=== PATIENT | female | born 1950 | race Caucasian/White ===

== ENCOUNTER 2024-09-07 06:08 | Outpatient (REF) | payer MEDICARE, MEDICAID, SELFPAY ==
[2024-09-07 06:14] LABS: MANUAL DIFF FLAG NO
[2024-09-07 06:58] LABS: Basophils Percent Auto 0.5 % (0-2); Eosinophils Absolute Auto 0.1 X10*3/uL (0.0-0.4); Eosinophils Percent Auto 1.1 % (0-4); Hematocrit 25.4 % (37.0-47.0); Hemoglobin 8.7 g/dl (12.0-16.0); Imm Gran Abs Auto 0.06 X10*3/uL (0.00-0.03); Imm Gran Pct Auto 0.7 % (0.0-0.4); Lymphocytes Absolute Auto 1.9 X10*3/uL (1.2-4.9); Lymphocytes Percent Auto 23.2 % (20-40); Mean Corpuscular HGB Conc 34.3 g/dl (31.0-35.0); Mean Corpuscular Hemoglobin 36.7 pg (27.0-33.0); Mean Corpuscular Volume 107.2 fL (80.0-98.0); Mean Platelet Volume 10.5 fL (9.4-12.3); Monocytes Absolute Auto 0.7 X10*3/uL (0.1-1.2); Monocytes Percent Auto 8.2 % (2-11); Neutrophils Absolute Auto 5.4 x10*3/uL (2.0-8.3); Neutrophils Percent Auto 66.3 % (45-73); Platelet Count 173 X10*3/uL (160-400); Red Blood Count 2.37 X10*6/uL (4.20-5.50); Red Cell Distribution Width 13.2 % (11.0-16.0); White Blood Count 8.1 X10*3/uL (4.8-10.8)
[2024-09-07 07:28] LABS: Alanine Aminotransferase 7 U/L (0-31); Alkaline Phosphatase 82 U/L (39-117); Anion Gap 9 (12-20); Aspartate Amino Transferase 17 U/L (5-31); Bilirubin Total 1.2 mg/dL (0.0-1.0); Blood Urea Nitrogen 17 mg/dL (9-16); Calcium 11.1 mg/dL (8.4-10.2); Carbon Dioxide 31 mmol/L (22-29); Chloride 103 mmol/L (96-108); Estimated Glomerular Filt Rate > 60; Glucose Random 98 mg/dL (60-115); Sodium 140 mmol/L (135-145); Total Protein 5.3 g/dL (6.5-8.0)
[2024-09-07 07:40] LABS: Potassium 2.9 mmol/L (3.3-5.1)
== END 2024-09-07 06:09 | disposition home or self-care (01) ==
LOC: HO.MMNH2L 06:08
PROVIDERS: Visit Provider Family Medicine
DX: I10 Essential (primary) hypertension (principal)
CPT/HCPCS: 36415; 80053; 85025

== ENCOUNTER 2024-09-09 05:26 | Outpatient (REF) | payer MEDICARE, SELFPAY ==
[2024-09-09 05:29] LABS: MANUAL DIFF FLAG NO
[2024-09-09 06:04] LABS: Basophils Percent Auto 0.4 % (0-2); Eosinophils Absolute Auto 0.1 X10*3/uL (0.0-0.4); Eosinophils Percent Auto 1.4 % (0-4); Hematocrit 25.6 % (37.0-47.0); Hemoglobin 8.5 g/dl (12.0-16.0); Imm Gran Abs Auto 0.07 X10*3/uL (0.00-0.03); Imm Gran Pct Auto 0.9 % (0.0-0.4); Lymphocytes Absolute Auto 1.7 X10*3/uL (1.2-4.9); Lymphocytes Percent Auto 20.7 % (20-40); Mean Corpuscular HGB Conc 33.2 g/dl (31.0-35.0); Mean Corpuscular Hemoglobin 36.5 pg (27.0-33.0); Mean Corpuscular Volume 109.9 fL (80.0-98.0); Mean Platelet Volume 10.2 fL (9.4-12.3); Monocytes Absolute Auto 0.7 X10*3/uL (0.1-1.2); Monocytes Percent Auto 8.1 % (2-11); Neutrophils Absolute Auto 5.6 x10*3/uL (2.0-8.3); Neutrophils Percent Auto 68.5 % (45-73); Platelet Count 201 X10*3/uL (160-400); Red Blood Count 2.33 X10*6/uL (4.20-5.50); Red Cell Distribution Width 14.3 % (11.0-16.0); White Blood Count 8.1 X10*3/uL (4.8-10.8)
[2024-09-09 06:14] LABS: Anion Gap 13 (12-20); Blood Urea Nitrogen 18 mg/dL (9-16); Calcium 10.9 mg/dL (8.4-10.2); Carbon Dioxide 28 mmol/L (22-29); Chloride 106 mmol/L (96-108); Estimated Glomerular Filt Rate > 60; Glucose Random 102 mg/dL (60-115); Sodium 143 mmol/L (135-145)
== END 2024-09-09 05:27 | disposition home or self-care (01) ==
LOC: HO.MMNH2L 05:26
PROVIDERS: Visit Provider Family Medicine
DX: S72.91XD Unspecified fracture of right femur, subsequent encounter for closed fracture with routine healing (principal); J44.9 Chronic obstructive pulmonary disease, unspecified; F32.9 Major depressive disorder, single episode, unspecified
CPT/HCPCS: 36415; 80048; 85025

== ENCOUNTER 2024-09-11 05:42 | Outpatient (REF) | payer MEDICARE, MEDICAID, SELFPAY ==
[2024-09-11 06:05] LABS: Appearance Urine Turbid; Color Urine Dark Yellow; Glucose Urine UA Negative (Negative); Leukocyte Esterase Urine Large (3+) (Negative); Nitrite Urine Positive (Negative); PH >= 9.0 (5.0-9.0); UMIC TRIGGER UA YES; Urine Blood Negative (Negative); Urine Ketones Negative (Negative); Urine Protein 100 (2+) mg/dL (Neg-Trace)
[2024-09-11 06:17] LABS: Bacteria Urine 4+ (None Seen); Hyaline Casts Urine 0-2 /LPF (0-2); Other Crystals Urine Present; RBC Urine 0-2 /HPF (0-2); Squamous Epithelial Cell Urine 0-2 /HPF (0-2); WBC Urine 0-5 /HPF (0-5)
== END 2024-09-11 05:43 | disposition home or self-care (01) ==
LOC: HO.MMNH2L 05:42
PROVIDERS: Visit Provider Family Medicine
DX: R30.0 Dysuria (principal)
CPT/HCPCS: 81001; 87086; 87088; 87186

== ENCOUNTER 2024-09-14 06:07 | Outpatient (REF) | payer MEDICARE, MEDICAID, SELFPAY ==
[2024-09-14 06:10] LABS: MANUAL DIFF FLAG NO
[2024-09-14 07:05] LABS: Basophils Percent Auto 0.4 % (0-2); Eosinophils Absolute Auto 0.1 X10*3/uL (0.0-0.4); Eosinophils Percent Auto 1.1 % (0-4); Hematocrit 28.7 % (37.0-47.0); Hemoglobin 9.4 g/dl (12.0-16.0); Imm Gran Abs Auto 0.03 X10*3/uL (0.00-0.03); Imm Gran Pct Auto 0.4 % (0.0-0.4); Lymphocytes Absolute Auto 1.1 X10*3/uL (1.2-4.9); Lymphocytes Percent Auto 15.9 % (20-40); Mean Corpuscular HGB Conc 32.8 g/dl (31.0-35.0); Mean Corpuscular Hemoglobin 35.6 pg (27.0-33.0); Mean Corpuscular Volume 108.7 fL (80.0-98.0); Mean Platelet Volume 10.2 fL (9.4-12.3); Monocytes Absolute Auto 0.6 X10*3/uL (0.1-1.2); Monocytes Percent Auto 8.7 % (2-11); Neutrophils Absolute Auto 5.2 x10*3/uL (2.0-8.3); Neutrophils Percent Auto 73.5 % (45-73); Platelet Count 222 X10*3/uL (160-400); Red Blood Count 2.64 X10*6/uL (4.20-5.50); Red Cell Distribution Width 14.2 % (11.0-16.0); White Blood Count 7.1 X10*3/uL (4.8-10.8)
[2024-09-14 08:15] LABS: Anion Gap 12 (12-20); Blood Urea Nitrogen 16 mg/dL (9-16); Carbon Dioxide 28 mmol/L (22-29); Chloride 106 mmol/L (96-108); Potassium 4.6 mmol/L (3.3-5.1); Sodium 141 mmol/L (135-145)
[2024-09-14 08:16] LABS: Calcium 11.9 mg/dL (8.4-10.2); Estimated Glomerular Filt Rate > 60; Glucose Random 85 mg/dL (60-115)
== END 2024-09-14 06:08 | disposition home or self-care (01) ==
LOC: HO.MMNH2L 06:07
PROVIDERS: Visit Provider Student in an Organized Health Care Education/Training Program
DX: J44.9 Chronic obstructive pulmonary disease, unspecified (principal); F32.9 Major depressive disorder, single episode, unspecified; E46 Unspecified protein-calorie malnutrition
CPT/HCPCS: 36415; 80048; 85025

== ENCOUNTER 2024-09-28 05:45 | Outpatient (REF) | payer MEDICARE, SELFPAY ==
[2024-09-28 05:39] LABS: MANUAL DIFF FLAG NO
[2024-09-28 06:34] LABS: Anion Gap 13 (12-20); Blood Urea Nitrogen 12 mg/dL (9-16); Calcium 11.7 mg/dL (8.4-10.2); Carbon Dioxide 26 mmol/L (22-29); Chloride 108 mmol/L (96-108); Estimated Glomerular Filt Rate > 60; Glucose Random 90 mg/dL (60-115); Sodium 144 mmol/L (135-145)
[2024-09-28 07:03] LABS: Basophils Absolute Auto 0.1 X10*3/uL (0.0-0.2); Basophils Percent Auto 0.6 % (0-2); Eosinophils Percent Auto 0.4 % (0-4); Hemoglobin 10.4 g/dl (12.0-16.0); Imm Gran Abs Auto 0.04 X10*3/uL (0.00-0.03); Imm Gran Pct Auto 0.4 % (0.0-0.4); Lymphocytes Absolute Auto 1.5 X10*3/uL (1.2-4.9); Mean Corpuscular HGB Conc 33.5 g/dl (31.0-35.0); Mean Corpuscular Volume 107.3 fL (80.0-98.0); Mean Platelet Volume 10.1 fL (9.4-12.3); Monocytes Absolute Auto 0.7 X10*3/uL (0.1-1.2); Monocytes Percent Auto 6.8 % (2-11); Neutrophils Absolute Auto 7.2 x10*3/uL (2.0-8.3); Neutrophils Percent Auto 75.8 % (45-73); Platelet Count 198 X10*3/uL (160-400); Red Blood Count 2.89 X10*6/uL (4.20-5.50); Red Cell Distribution Width 13.6 % (11.0-16.0); White Blood Count 9.6 X10*3/uL (4.8-10.8)
== END 2024-09-28 05:46 | disposition home or self-care (01) ==
LOC: HO.MMNH2L 05:45
PROVIDERS: Visit Provider Student in an Organized Health Care Education/Training Program
DX: J44.9 Chronic obstructive pulmonary disease, unspecified (principal); F32.9 Major depressive disorder, single episode, unspecified; E46 Unspecified protein-calorie malnutrition
CPT/HCPCS: 36415; 80048; 85025

== ENCOUNTER 2024-10-05 05:49 | Outpatient (REF) | payer MEDICARE, SELFPAY ==
[2024-10-05 05:40] LABS: MANUAL DIFF FLAG NO
[2024-10-05 06:23] LABS: Basophils Percent Auto 0.5 % (0-2); Eosinophils Absolute Auto 0.1 X10*3/uL (0.0-0.4); Hematocrit 32.2 % (37.0-47.0); Hemoglobin 10.7 g/dl (12.0-16.0); Imm Gran Abs Auto 0.02 X10*3/uL (0.00-0.03); Imm Gran Pct Auto 0.4 % (0.0-0.4); Lymphocytes Absolute Auto 1.4 X10*3/uL (1.2-4.9); Lymphocytes Percent Auto 25.1 % (20-40); Mean Corpuscular HGB Conc 33.2 g/dl (31.0-35.0); Mean Corpuscular Hemoglobin 35.5 pg (27.0-33.0); Monocytes Absolute Auto 0.5 X10*3/uL (0.1-1.2); Monocytes Percent Auto 9.6 % (2-11); Neutrophils Absolute Auto 3.5 x10*3/uL (2.0-8.3); Neutrophils Percent Auto 62.4 % (45-73); Platelet Count 163 X10*3/uL (160-400); Red Blood Count 3.01 X10*6/uL (4.20-5.50); Red Cell Distribution Width 13.6 % (11.0-16.0); White Blood Count 5.5 X10*3/uL (4.8-10.8)
[2024-10-05 06:51] LABS: Anion Gap 11 (12-20); Blood Urea Nitrogen 13 mg/dL (9-16); Carbon Dioxide 28 mmol/L (22-29); Chloride 106 mmol/L (96-108); Estimated Glomerular Filt Rate > 60; Glucose Random 86 mg/dL (60-115); Potassium 3.7 mmol/L (3.3-5.1); Sodium 141 mmol/L (135-145)
== END 2024-10-05 05:50 | disposition home or self-care (01) ==
LOC: HO.MMNH2L 05:49
PROVIDERS: Visit Provider Student in an Organized Health Care Education/Training Program
DX: J44.9 Chronic obstructive pulmonary disease, unspecified (principal); F32.9 Major depressive disorder, single episode, unspecified; E46 Unspecified protein-calorie malnutrition
CPT/HCPCS: 36415; 80048; 85025

== ENCOUNTER 2024-10-12 06:25 | Outpatient (REF) | payer MEDICARE, SELFPAY ==
[2024-10-12 06:19] LABS: MANUAL DIFF FLAG NO
[2024-10-12 06:33] LABS: Basophils Absolute Auto 0.1 X10*3/uL (0.0-0.2); Basophils Percent Auto 0.6 % (0-2); Eosinophils Absolute Auto 0.2 X10*3/uL (0.0-0.4); Eosinophils Percent Auto 2.1 % (0-4); Hematocrit 35.3 % (37.0-47.0); Hemoglobin 11.8 g/dl (12.0-16.0); Imm Gran Abs Auto 0.04 X10*3/uL (0.00-0.03); Imm Gran Pct Auto 0.5 % (0.0-0.4); Lymphocytes Absolute Auto 1.9 X10*3/uL (1.2-4.9); Lymphocytes Percent Auto 23.1 % (20-40); Mean Corpuscular HGB Conc 33.4 g/dl (31.0-35.0); Mean Corpuscular Hemoglobin 35.4 pg (27.0-33.0); Mean Platelet Volume 9.8 fL (9.4-12.3); Monocytes Absolute Auto 0.7 X10*3/uL (0.1-1.2); Neutrophils Absolute Auto 5.4 x10*3/uL (2.0-8.3); Neutrophils Percent Auto 65.7 % (45-73); Platelet Count 188 X10*3/uL (160-400); Red Blood Count 3.33 X10*6/uL (4.20-5.50); Red Cell Distribution Width 13.3 % (11.0-16.0); White Blood Count 8.2 X10*3/uL (4.8-10.8)
[2024-10-12 07:01] LABS: Anion Gap 11 (12-20); Blood Urea Nitrogen 13 mg/dL (9-16); Carbon Dioxide 29 mmol/L (22-29); Chloride 104 mmol/L (96-108); Estimated Glomerular Filt Rate > 60; Glucose Random 90 mg/dL (60-115); Sodium 141 mmol/L (135-145)
[2024-10-12 07:25] LABS: Calcium 12.5 mg/dL (8.4-10.2); Potassium 2.9 mmol/L (3.3-5.1)
== END 2024-10-12 06:26 | disposition home or self-care (01) ==
LOC: HO.MMNH2L 06:25
PROVIDERS: Visit Provider Student in an Organized Health Care Education/Training Program
DX: J44.9 Chronic obstructive pulmonary disease, unspecified (principal); F32.9 Major depressive disorder, single episode, unspecified; E46 Unspecified protein-calorie malnutrition
CPT/HCPCS: 36415; 80048; 85025

== ENCOUNTER 2024-10-13 06:00 | Outpatient (REF) | payer MEDICARE, SELFPAY ==
[2024-10-13 07:32] LABS: Anion Gap 9 (12-20); Blood Urea Nitrogen 14 mg/dL (9-16); Carbon Dioxide 29 mmol/L (22-29); Chloride 107 mmol/L (96-108); Estimated Glomerular Filt Rate > 60; Glucose Random 91 mg/dL (60-115); Potassium 3.8 mmol/L (3.3-5.1); Sodium 141 mmol/L (135-145)
[2024-10-13 07:48] LABS: Calcium 12.7 mg/dL (8.4-10.2)
== END 2024-10-13 06:01 | disposition home or self-care (01) ==
LOC: HO.MMNH2L 06:00
PROVIDERS: Visit Provider Family Medicine
DX: E87.6 Hypokalemia (principal); J44.9 Chronic obstructive pulmonary disease, unspecified
CPT/HCPCS: 36415; 80048

== ENCOUNTER 2024-10-19 06:02 | Outpatient (REF) | payer MEDICARE, SELFPAY ==
[2024-10-19 05:44] LABS: MANUAL DIFF FLAG NO
[2024-10-19 06:19] LABS: Basophils Absolute Auto 0.1 X10*3/uL (0.0-0.2); Basophils Percent Auto 0.8 % (0-2); Eosinophils Absolute Auto 0.1 X10*3/uL (0.0-0.4); Eosinophils Percent Auto 1.8 % (0-4); Hematocrit 34.7 % (37.0-47.0); Hemoglobin 11.5 g/dl (12.0-16.0); Imm Gran Abs Auto 0.02 X10*3/uL (0.00-0.03); Imm Gran Pct Auto 0.3 % (0.0-0.4); Lymphocytes Absolute Auto 1.8 X10*3/uL (1.2-4.9); Lymphocytes Percent Auto 26.9 % (20-40); Mean Corpuscular HGB Conc 33.1 g/dl (31.0-35.0); Mean Corpuscular Hemoglobin 35.2 pg (27.0-33.0); Mean Corpuscular Volume 106.1 fL (80.0-98.0); Mean Platelet Volume 10.1 fL (9.4-12.3); Monocytes Absolute Auto 0.5 X10*3/uL (0.1-1.2); Monocytes Percent Auto 7.6 % (2-11); Neutrophils Absolute Auto 4.1 x10*3/uL (2.0-8.3); Neutrophils Percent Auto 62.6 % (45-73); Platelet Count 200 X10*3/uL (160-400); Red Blood Count 3.27 X10*6/uL (4.20-5.50); White Blood Count 6.6 X10*3/uL (4.8-10.8)
[2024-10-19 06:55] LABS: Anion Gap 10 (12-20); Blood Urea Nitrogen 18 mg/dL (9-16); Calcium 11.6 mg/dL (8.4-10.2); Carbon Dioxide 29 mmol/L (22-29); Chloride 105 mmol/L (96-108); Estimated Glomerular Filt Rate > 60; Glucose Random 84 mg/dL (60-115); Potassium 3.2 mmol/L (3.3-5.1); Sodium 141 mmol/L (135-145)
== END 2024-10-19 06:03 | disposition home or self-care (01) ==
LOC: HO.MMNH2L 06:02
PROVIDERS: Visit Provider Student in an Organized Health Care Education/Training Program
DX: J44.9 Chronic obstructive pulmonary disease, unspecified (principal); F32.9 Major depressive disorder, single episode, unspecified; E46 Unspecified protein-calorie malnutrition
CPT/HCPCS: 36415; 80048; 85025

== ENCOUNTER 2024-10-26 06:11 | Outpatient (REF) | payer MEDICARE, SELFPAY ==
[2024-10-26 05:40] LABS: MANUAL DIFF FLAG NO
[2024-10-26 06:15] LABS: Basophils Absolute Auto 0.1 X10*3/uL (0.0-0.2); Basophils Percent Auto 0.8 % (0-2); Eosinophils Absolute Auto 0.1 X10*3/uL (0.0-0.4); Eosinophils Percent Auto 2.1 % (0-4); Hemoglobin 11.7 g/dl (12.0-16.0); Imm Gran Abs Auto 0.03 X10*3/uL (0.00-0.03); Imm Gran Pct Auto 0.5 % (0.0-0.4); Lymphocytes Percent Auto 30.5 % (20-40); Mean Corpuscular HGB Conc 33.4 g/dl (31.0-35.0); Mean Corpuscular Hemoglobin 35.3 pg (27.0-33.0); Mean Corpuscular Volume 105.7 fL (80.0-98.0); Mean Platelet Volume 10.2 fL (9.4-12.3); Monocytes Absolute Auto 0.5 X10*3/uL (0.1-1.2); Monocytes Percent Auto 7.6 % (2-11); Neutrophils Absolute Auto 3.8 x10*3/uL (2.0-8.3); Neutrophils Percent Auto 58.5 % (45-73); Platelet Count 180 X10*3/uL (160-400); Red Blood Count 3.31 X10*6/uL (4.20-5.50); Red Cell Distribution Width 13.1 % (11.0-16.0); White Blood Count 6.6 X10*3/uL (4.8-10.8)
[2024-10-26 06:34] LABS: Anion Gap 10 (12-20); Blood Urea Nitrogen 21 mg/dL (9-16); Calcium 11.8 mg/dL (8.4-10.2); Carbon Dioxide 32 mmol/L (22-29); Chloride 105 mmol/L (96-108); Estimated Glomerular Filt Rate > 60; Glucose Random 82 mg/dL (60-115); Potassium 3.8 mmol/L (3.3-5.1); Sodium 143 mmol/L (135-145)
== END 2024-10-26 06:12 | disposition home or self-care (01) ==
LOC: HO.MMNH2L 06:11
PROVIDERS: Visit Provider Student in an Organized Health Care Education/Training Program
DX: J44.9 Chronic obstructive pulmonary disease, unspecified (principal); E46 Unspecified protein-calorie malnutrition; F32.9 Major depressive disorder, single episode, unspecified
CPT/HCPCS: 36415; 80048; 85025

== ENCOUNTER 2024-11-16 06:16 | Outpatient (REF) | payer MEDICARE, MEDICAID, SELFPAY ==
[2024-11-16 06:03] LABS: MANUAL DIFF FLAG NO
[2024-11-16 06:35] LABS: Basophils Absolute Auto 0.1 X10*3/uL (0.0-0.2); Eosinophils Absolute Auto 0.1 X10*3/uL (0.0-0.4); Hematocrit 35.6 % (37.0-47.0); Imm Gran Abs Auto 0.02 X10*3/uL (0.00-0.03); Imm Gran Pct Auto 0.3 % (0.0-0.4); Lymphocytes Percent Auto 34.1 % (20-40); Mean Corpuscular HGB Conc 33.7 g/dl (31.0-35.0); Mean Corpuscular Hemoglobin 34.9 pg (27.0-33.0); Mean Corpuscular Volume 103.5 fL (80.0-98.0); Mean Platelet Volume 10.5 fL (9.4-12.3); Monocytes Absolute Auto 0.5 X10*3/uL (0.1-1.2); Monocytes Percent Auto 8.4 % (2-11); Neutrophils Absolute Auto 3.2 x10*3/uL (2.0-8.3); Neutrophils Percent Auto 54.2 % (45-73); Platelet Count 136 X10*3/uL (160-400); Red Blood Count 3.44 X10*6/uL (4.20-5.50); Red Cell Distribution Width 13.5 % (11.0-16.0)
[2024-11-16 06:59] LABS: Anion Gap 7 (12-20); Blood Urea Nitrogen 15 mg/dL (9-16); Calcium 11.5 mg/dL (8.4-10.2); Carbon Dioxide 29 mmol/L (22-29); Chloride 109 mmol/L (96-108); Estimated Glomerular Filt Rate > 60; Glucose Random 86 mg/dL (60-115); Potassium 3.6 mmol/L (3.3-5.1); Sodium 141 mmol/L (135-145)
== END 2024-11-16 06:17 | disposition home or self-care (01) ==
LOC: HO.MMNH2L 06:16
PROVIDERS: Visit Provider Student in an Organized Health Care Education/Training Program
DX: J44.9 Chronic obstructive pulmonary disease, unspecified (principal); F32.4 Major depressive disorder, single episode, in partial remission; E46 Unspecified protein-calorie malnutrition
CPT/HCPCS: 36415; 80048; 85025

== ENCOUNTER 2024-11-30 06:11 | Outpatient (REF) | payer MEDICARE, MEDICAID, SELFPAY ==
[2024-11-30 06:00] LABS: MANUAL DIFF FLAG NO
[2024-11-30 07:00] LABS: Basophils Percent Auto 0.7 % (0-2); Eosinophils Absolute Auto 0.1 X10*3/uL (0.0-0.4); Eosinophils Percent Auto 1.6 % (0-4); Hematocrit 35.7 % (37.0-47.0); Hemoglobin 11.8 g/dl (12.0-16.0); Imm Gran Abs Auto 0.02 X10*3/uL (0.00-0.03); Imm Gran Pct Auto 0.3 % (0.0-0.4); Lymphocytes Percent Auto 34.5 % (20-40); Mean Corpuscular HGB Conc 33.1 g/dl (31.0-35.0); Mean Corpuscular Hemoglobin 34.5 pg (27.0-33.0); Mean Corpuscular Volume 104.4 fL (80.0-98.0); Mean Platelet Volume 10.5 fL (9.4-12.3); Monocytes Absolute Auto 0.5 X10*3/uL (0.1-1.2); Monocytes Percent Auto 7.8 % (2-11); Neutrophils Absolute Auto 3.2 x10*3/uL (2.0-8.3); Neutrophils Percent Auto 55.1 % (45-73); Platelet Count 154 X10*3/uL (160-400); Red Blood Count 3.42 X10*6/uL (4.20-5.50); Red Cell Distribution Width 13.4 % (11.0-16.0); White Blood Count 5.8 X10*3/uL (4.8-10.8)
[2024-11-30 07:13] LABS: Anion Gap 10 (12-20); Blood Urea Nitrogen 17 mg/dL (9-16); Calcium 11.1 mg/dL (8.4-10.2); Carbon Dioxide 27 mmol/L (22-29); Chloride 107 mmol/L (96-108); Estimated Glomerular Filt Rate > 60; Glucose Random 83 mg/dL (60-115); Potassium 3.4 mmol/L (3.3-5.1); Sodium 141 mmol/L (135-145)
== END 2024-11-30 06:12 | disposition home or self-care (01) ==
LOC: HO.MMNH2L 06:11
PROVIDERS: Visit Provider Student in an Organized Health Care Education/Training Program
DX: J44.9 Chronic obstructive pulmonary disease, unspecified (principal); F32.9 Major depressive disorder, single episode, unspecified; E46 Unspecified protein-calorie malnutrition
CPT/HCPCS: 36415; 80048; 85025

== ENCOUNTER 2024-12-07 06:16 | Outpatient (REF) | payer MEDICARE, MEDICAID, SELFPAY ==
[2024-12-07 06:02] LABS: MANUAL DIFF FLAG NO
--- OUTSIDE RECORDS SUMMARY | 2024-12-07 06:21 | XMS_ITS ---
Author Organization [facility] on Address Unknown Problems Problem Status Start Date End Date UNSPECIFIED FRACTURE OF SHAF T OF LEFT TIBIA, SUBSEQUENT ENCOUNTER FOR CLOSED FRACTURE WITH ROUTINE HEALING (Primary) (S82.202D - ICD-10-CM) ACTIVE 01/26/2023 CHRONIC OBSTRUCTIVE PULMONAR Y DISEASE, UNSPECIFIED (J44.9 - ICD-10-CM) ACTIVE 01/26/2023 MAJOR DEPRESSIVE DISORDER, R ECURRENT, UNSPECIFIED (F33.9 - ICD-10-CM) ACTIVE 01/26/2023 OTHER POLYOSTEOARTHRITIS (M15.8 - ICD-10-CM) ACTIVE 01/26/2023 OBESITY, UNSPECIFIED (E66.9 - ICD-10-CM) ACTIVE 01/26/2023 HYPERLIPIDEMIA, UNSPECIFIED (E78.5 - ICD-10-CM) ACTIVE 01/26/2023 ESSENTIAL (PRIMARY) HYPERTENSION (I10 - ICD-10-CM) ACT WILMAR 01/26/2023 Encounters Encounter Performer Performer Role Encounter Diagnoses Location Date Discharge - Discharged to home or self care - Home (Agency Unknown) - Private home/apt. with home health services [facility] 01/26/2023 03:20 pm EDT - 02/05/2023 04:17 pm EDT Immunizations Vaccine Date Influenza 08/13/2022 12:00 am EDT Zostavax(Shingles) 12/31/2011 12:00 am EST Pneumococcal Conjugate Vaccine (PCV13) 0 05/10/2016 12:00 am EDT Pneumococcal Conjugate Vaccine (PCV13) 0 03/09/2016 12:00 am EDT Pneumococcal Polysaccharide Vaccine (PPS V23) 09/17/2017 12:00 am EST Pneumococcal Polysaccharide Vaccine (PPS V23) 12/10/2011 12:00 am EST TDAP( Tetanus/Diptheria/Perutssis) 03/10 12:00 am EDT SARS-COV-2 (COVID-19) 02/02/2021 12:00 a m EDT Shingrix 04/11/2019 12:00 am EDT SARS-COV-2 (COVID-19 BOOSTER) 02/25/2021 12:00 am EDT Social History
--- OUTSIDE RECORDS SUMMARY | 2024-12-07 06:21 | XMS_ITS | Clinical Summary ---
Author Organization [facility] [address] [facility] [address] Address [address] [place] [address] Phone Care Team Providers Care Tool Dispatcher Name Role Phone Saqib Lock MD Primary Care Provi amelia Encounters Date Type Department Care Team Description 11/16/2024 Telephone Lung Screening Program - [address] [phone] Jeanie Anders [place] 11/02/2024 Telephone Lung Screening Program - [address] [phone] Love Ty [place] Appointment (Upcoming LDCT) from Last 3 Months Medical History Medical History Date Comments Current every day smoker DX:Curr ent every day smoker Essential (primary) hypertension DX:Essential (primary) hypertension COPD (chronic obstructive pu lmonary disease) ([facility]/HCC) DX:COPD (chronic obstructive pulmonary disease) ([facility]) Depression DX:Depression Thyroid disease DX:Thyroid disea se Family History Relation Name Status Comments Brother Mother Sister Social History Tobacco Use Types Packs/Day Years Used Date Smoking Tobacco: Never Assessed Sex and Gender Information Value Date Recorded Sex Assigned at Not on file Gender Identity Not on file Sexual Orientation Not on file Obstetrics History Plan of Treatment Upcoming Encounters Date Type Department Care Team ([facility] st Contact Info) Description 01/28/2025 9:[address] [facility] Scan [address] [place] [address] Health Maintenance Due Date Last Done Comments Breast Cancer Screening 1950 DTaP,Tdap,and Td Vaccines (1 - Tdap) 1969 Zoster Vaccines (1 of 2) 2000 Pneumococcal Vaccine: 65+ Ye ars (1 of 1 - PCV) 2015 Colorectal Cancer Screening: Colonoscopy 10/09/2022 Depression Screening 10/09/2022 Falls Risk Assessment 10/09/2022 Hepatitis C Screening 10/09/2022 Medicare Annual Wellness Visit 10/09/2022 Osteoporosis Screening (Bone Density Screening) 10/09/2022 Social Influencers of Health Screening 10/09/2022 COVID-19 Vaccine (1 - 2023-2 5 season) 2024 Influenza Vaccine (#1) 2024 RSV Immunization Patients 60 + Years Old (1 - 1-dose 75+ series) 2025 HIB Vaccines Aged Out No longer eligi ble based on patient's age to complete this topic HPV Vaccines Aged Out No longer eligi ble based on patient's age to complete this topic Hepatitis A Vaccines Aged Out No long er eligible based on patient's age to complete this topic Hepatitis B Vaccines Aged Out No long er eligible based on patient's age to complete this topic IPV Vaccines Aged Out No longer eligi ble based on patient's age to complete this topic MMR Vaccines Aged Out No longer eligi ble based on patient's age to complete this topic Meningococcal ACWY Vaccine Aged Out N o longer eligible based on patient's age to complete this topic RSV Immunization Patients Un amelia 20 months Aged Out No longer eligible b ased on patient's age to complete this topic Varicella Vaccines Aged Out No longer eligible based on patient's age to complete this topic Care Teams Tool Dispatcher Relationship Specialty Start Date End Date Saqib Lock MD [address] [place] [address] [facility] - General 10/30/22
--- OUTSIDE RECORDS SUMMARY | 2024-12-07 06:21 | XMS_ITS | Continuity of Care Document ---
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 Name Role Phone NIKITA LIN Primary Care Provide r [facility] 2[facility] FLOOR OTHER [phone] Assessment Encounter Date Assessment Date Assessment LastModified by Organization Details LastModified Time 11/09/2024 11/09/2024 Labs 09/14: [id number] 4.6-Bun 16- cr 0.7-wbc 7.1-hgb 9.4-hct 28.7-plt 222 Labs 09/28: Na 144- K 3.0-Bun 12- Cr 0.6-wbc 9.6-hgb 10.40 hct 31.0-plt 198 Labs 10/05:Na 141- K 3.7-Bun 13- Cr 0.6-wbc 5.5-hgb 10.7-hct 32.2-plt 163 Labs 10/13: Na 141-K 3.8-Bun 14-Cr 0.6-wbc 8.2-hgb 11.8-bxp53-mq t 188-calcium 12.7 Labs 10/19: Na 141- K 3.2-Bun 18-cr 0.6-wbc 3.2-hgb 11.5-hct 34.7-200 Labs 10/26: Na 143-K 3.8-Bun 21- Cr 0.8-wbc 6.6-hgb 11.7-hct 35-plt 18- [id number] Not available 11/18/2024 10:42:00 Plan of Treatment Reminders Order Date Submit Date Provider Last Modified By Organization Details Last Modified Time Details Appointments None record ed. Lab None record ed. Referral None record ed. Procedures None record ed. Surgeries None record ed. Imaging None record ed. Medication Orders None record ed. Patient TargetsNo targets recorded. Patient InstructionsNo instructions recorded. Reason for Referral None Reported. Problems Name Problem SNOMED Code Status Onset Date Resolution Date Notes Provider Name and Address Organization Details Recorded Time Pulmonary emphysema 26736780 Active [address], [address], [place], [address], [facility] 3 10:46:22 Osteoarth ritis 876569357 Active [address], [address], [place], [address], [facility] 3 10:46:28 Asthma 332045529 Active [address], [address], [place], [address], [facility] 3 10:46:32 Cyst of breast 652931431 Completed 202209/07/2024 KIMBERLYN MERCEDES [address] [facility], [address], [place], [address], [facility] 4 20:44:27 Chronic obstructi ve pulmonary disease 53551366 Active [address], [address], [place], [address], [facility] 3 10:46:48 Obesity 379397606 Completed 202209/07/2024 KIMBERLYN MERCEDES [address] [facility], [address], [place], [address], [facility] 4 20:44:27 Depressiv e disorder 45972759 Active [address], [address], [place], [address], [facility] 3 10:47:08 Hyperlipi demia 58699228 Active [address], [address], [place], [address], [facility] 3 10:47:16 Polyp of colon 18782851 Completed 202209/07/2024 KIMBERLYN MERCEDES [address] [facility], [address], [place], [address], [facility] 4 20:44:27 History of deep vein thrombosi s 178094165 Active 2022 VANGIE [address]ORENZANA [address] [place] [address], [address], [place], [address], [facility] 3 10:47:37 Essential hypertens ion 42735372 Active 2022 VANGIE LORENZANA [address] [place] [address], [address], [place], [address], [facility] 3 10:51:08 Closed fracture of left patella 624544774923 48199 Completed 202209/07/2024 KIMBERLYN MERCEDES [address] [facility], [address], [place], [address], [facility] 4 20:44:27 Gastroeso phageal reflux disease without esophagit is 130884496 Active [address] [place] [address], [address], [place], [address], [facility] 3 10:57:14 Fall Active [address] [place] [address], [address], [place], [address], [facility] 3 11:02:17 Fracture of proximal end of femur 556592471 Completed 202309/07/2024 KIMBERLYN MERCEDES [address] [facility], [address], [place], [address], [facility] 4 10:10:21 Tobacco user 723145231 Active [address] [place] [address], [address], [place], [address], [facility] 4 15:12:34 [facility] emia 04028873 Completed 202309/07/2024 KIMBERLYN MERCEDES [address] [facility], [address], [place], [address], [facility] 4 20:44:27 History of thrombocy topenia 289766447541 08 Completed 202309/07/2024 KIMBERLYN MERCEDES [address] [facility], [address], [place], [address], [facility] 4 20:48:33 Constipat ion 76146431 Active 2023 Holly Robles MD [address] [facility], [address], [place], [address], [facility] 4 21:45:11 Fracture of proximal end of femur 296532340 Active 2023 KIMBERLYN MERCEDES [address] [facility], [address], [place], [address], [facility] 4 10:10:21 Problem Notes None recorded. Procedures Surgical History Date Name Laterality Status Provider Name and Address Organization Details Recorded Time ligation of fallopian tube completed [address], [address], [place], [address], [facility] 01/28/2023 10:47:49 cholecystectomy completed [address], [address], [place], [address], [facility] 01/28/2023 10:47:57 Imaging Results None recorded. Procedure Notes None recorded. Medical Equipment None Reported. Allergies No known drug allergies Medications Name Sig Start Date Stop Date Status Note LastModified by Organization Details LastModified Time tramadol 50 mg tablet 1 po q 6 hrs prn pain #3 from E kit 024 active Not Available Not Available Not Avai lable Macrobid 100 mg capsule Take 1 capsule every 12 hours by oral route as directed for 7 days. 023 active Not Available Not Available Not Avai lable oxycodone 5 mg tablet Take 1 tablet every 4 hours by oral route. 024 active Not Available Not Available Not Avai lable Vitals Date Recorded Body height Body temperature Respiratory rate Heart rate Oxygen saturation Oxygen saturation in Arterial blood by Pulse oximetry Systolic blood pressure Diastolic blood pressure Provider Name and Address Organization Details Last Updated DateTime 4 172.72 cm 98 [degF] 18 /min 71 /min 96 % 96 % 122 mm[Hg] 72 mm[Hg] HILARIO BAZZI, CORE COMPOSER MACHINE TENDER [address], [address], [place], [address], [facility] 5 10:39:20 Social History Question Answer Notes LastModified by Organization Details LastModified Time Tobacco Smoking Status Former Smoker every day, [address], [address], [place], [address], [facility] 01/28/2023 10:48:58 Do You Have An Advance Directive? Yes Information not available 07/20/2024 What Is Your Level Of Alcohol Consumption? None Information not available 01/28/2023 What Is Your Code Status? Full Code Information not available 01/28/2023 Where Do You Live? Apartment [address] Floor, Accessible. Information not available 07/20/2024 Legal Guardian? No Informati on not available 01/28/2023 Do You Have A Medical Power Of Plumber Supervisor? Yes Information not available 07/20/2024 What Was The Date Of Your Most Recent Tobacco Screening? 07/20/2024 Information not available 07/20/2024 Do You Have An Out Of Hospital DNR? No Information not available 01/28/2023 What Is Your Relationship Status? Information not available 07/20/2024 How Much Tobacco Do You Smoke? No Smoked 1/2 Ppd Until Hospitalization Information not available 07/20/2024 Do You Use Any Illicit Or Recreational Drugs? No Information not available 01/28/2023 Has Tobacco Cessation Counseling Been Provided? Yes Thinks She May Quit Information not available 07/20/2024 On What Date Was Tobacco Cessation Counseling Provided? 07/20/2024 Information not available 07/20/2024 Do You Or Have You Ever Used Any Other Forms Of Tobacco Or Nicotine? No Information not available 01/28/2023 Sex: Unknown Functional Status None recorded. Mental Status None recorded. Family History Relationship Description Onset Age of this Age Resolved Age Notes LastModified by Organization Details LastModified Time Father No current problems or disability glord Not available 03/20 /2023 11:01:01 Mother No current problems or disability glord Not available 01/28 11:01:01 Notes:n/c Medical History No medical history recorded. Gynecological HistoryNo gynecological history recorded. Obstetrics History GPAL:G 0 P 0 0 0 0 Immunizations Vaccine Type Date Status Note Provider Nam e and Address Organization Details Recorded Time SARS-COV-2 (COVID-19) vaccine, UNSPECIFIED 1 completed Minnie Schwab [facility] 01/28/2023 16:51:35 SARS-COV-2 (COVID-19) vaccine, UNSPECIFIED 1 completed Minnie Schwab [facility] 01/28/2023 16:51:48 Tdap 5 completed Minnie Schwab [facility] 01/28/2023 16:52:09 influenza, unspecified formulation 1 completed Minnie Schwab [facility] 01/28/2023 16:52:33 pneumococcal conjugate PCV 7 6 completed Minnie Schwab [facility] 01/28/2023 16:53:01 pneumococcal polysaccharide PPV23 2 completed Minnie Schwab [facility] 01/28/2023 16:53:16 zoster recombinant 9 completed Minnie Schwab [facility] 01/28/2023 16:53:33 zoster live 2 completed Minnie Schwab [facility] 01/28/2023 16:53:50 Influenza, adjuvanted, quadrivalent, PF 2 completed Mily Almonte [facility] 12/11/2023 11:33:48 Influenza, adjuvanted, quadrivalent, PF 3 completed Mily Almonte [facility] 01/09/2024 11:17:44 Past Encounters Encounter ID Performer Location Encounter Start Date Encounter Closed Date Diagnosis/Indication Diagnosis SNOMED-CT Code Diagnosis ICD10 Code Diagnosis Note [id number] KIMBERLYN MERCEDES [address] [place] [address] 10/12/2024 12:11:08 10/15/2024 11:19:28 Closed fracture of hip 470567270 S72.001A s/p ORIFcontin ue PT/OTconti nue lovenox 40 mg daily/dvt ppx for until 10/06conti nue tylenol and oxycodone prnfollow up with ortho in 2 weeks 24in cision healed Essential hypertension 53868360 I10 BP stablecont inue cardizem 300 mg Chronic ob structive pulmonary disease 03942299 J44.9 NO Increase WOBcombive nt QID prnencoura ge smoking cessation Pain of ri ght knee region 9908869890 01619 M25.561 see hpiimaging negative for DVTreports pain started after hip repairdesc ribed as cramping, pain with dorsiflexi onshe is concerned for ? blood clotthere is no swelling or point tenderness Hypercalcemia 52818474 E 83.52 today 12.7elevat ed serum calcium levels dating back to spring 2022.Mildl y elevated inpatient and do not appear to be causing her any symptomsHe r PTH was elevated suggesting primary hyperparat hyroidism. [facility] facility[facility] scussed with nursing to hold calcium and vit D for now [id number] KIMBERLYN MERCEDES [address] [place] [address] [place] [address] 10/15/2024 08:36:48 10/16/2024 12:00:47 Closed fracture of hip 716018583 S72.001A s/p ORIFcontin ue PT/OTconti nue lovenox 40 mg daily/dvt ppx for until 10/06conti nue tylenol and oxycodone prnincisio n healed Essential hypertension 66987902 I10 BP stablecont inue cardizem 300 mg Chronic ob structive pulmonary disease 61282799 J44.9 NO Increase WOBcombive nt QID prnencoura ge smoking cessation Pain of ri ght knee region 1015011670 09490 M25.561 see hpiimaging negative for DVTreports pain started after hip repairdesc ribed as cramping, pain with dorsiflexi onshe is concerned for ? blood clotthere is no swelling or point tenderness Hypercalcemia 64637848 E 83.52 12/3: 12.7elevat ed serum calcium levels dating back to spring 2022.Mildl y elevated do not appear to be causing her any symptomsHe r PTH was elevated suggesting primary hyperparat hyroidism. [facility] facilitydi scussed with nursing to hold calcium and vit D for nowmonitor for associated sx [id number] KIMBERLYN MERCEDES [address] [address] 10/19/2024 10:14:51 10/20/2024 14:17:10 Closed fracture of hip 945702929 S72.001A s/p ORIFcontin ue PT/OTconti nue tylenol and oxycodone prnincisio n healed Essential hypertension 09509027 I10 BP stablecont inue cardizem 300 mg Chronic ob structive pulmonary disease 60971581 J44.9 NO Increase WOBcombive nt QID prnencoura ge smoking cessation Pain of ri ght knee region 7298518072 71900 M25.561 see hpiimaging negative for DVTreports pain started after hip repairdesc ribed as cramping, pain with dorsiflexi onshe is concerned for ? blood clotthere is no swelling or point tenderness Hypercalcemia 07302738 E 83.52 [id number] 9: 11.6elevat ed serum calcium levels dating back to spring 2022.Mildl y elevated do not appear to be causing her any symptomsHe r PTH was elevated suggesting primary hyperparat hyroidism. [facility] facilitydi scussed with nursing to hold calcium and vit D for nowmonitor for associated sx Hypokalemia 32536496 E87 .6 see HPI/suspec t medication inducedK+ 3.2replace now with 20 meq for 1 dosewill add daily kcl 10 meq and continue to monitor. [id number] KIMBERLYN MERCEDES [address] [address] 10/22/2024 08:21:15 10/23/2024 13:25:04 Closed fracture of hip 825501095 S72.001A s/p ORIFcontin ue PT/OT- progressin g slowlycont inue tylenol and oxycodone prnincisio n healed Essential hypertension 30964474 I10 BP stablecont inue cardizem 300 mg Chronic ob structive pulmonary disease 37046090 J44.9 NO Increase WOBcombive nt QID prnencoura ge smoking cessation Pain of ri ght knee region 3532779279 83710 M25.561 imaging negative for DVTthere is no swelling or point tenderness will schedule apap 975 mg TID, pain seems to be interferin g with therapy endurance. discussed with patient and nursing. Hypercalcemia 48881507 E 83.52 [id number]: 11.6elevat ed serum calcium levels dating back to spring 2022.Mildl y elevated do not appear to be causing her any symptomsHe r PTH was elevated suggesting primary hyperparat hyroidism. [facility] facilitydi scussed with nursing to hold calcium and vit D for nowmonitor for associated sx Hypokalemia 71036150 E87 .6 see HPI/suspec t medication inducedK+ 3.2replace now with 20 meq for 1 dosewill add daily kcl 10 meq and continue to monitor. [id number] KIMBERLYN MERCEDES [address] [place] [address] 10/26/2024 10:36:56 10/27/2024 12:05:26 Closed fracture of hip 015404258 S72.001A s/p ORIFcontin ue PT/OT- progressin g slowlycont inue tylenol and oxycodone prnincisio n healed Chronic ob structive pulmonary disease 50161141 J44.9 NO Increase WOBcombive nt QID prnencoura ge smoking cessation Pain of ri ght knee region 5959474517 10386 M25.561 imaging negative for DVTthere is no swelling or point tenderness continue apap 975 mg TID Hypokalemia 87747069 E87 .6 see HPI/suspec t medication inducedK+ 3.8continu e kcl 10 meq daily.[facility] tor labs [id number] KIMBERLYN MERCEDES [facility] [address] [place] [address] 11/02/2024 10:15:17 11/03/2024 09:53:07 Closed fracture of hip 904907629 S72.001A s/p ORIFcontin ue PT/OT- progressin g slowlycont inue tylenol and oxycodone prnincisio n healed Chronic ob structive pulmonary disease 10009301 J44.9 NO Increase WOBcombive nt QID prnencoura ge smoking cessation Dysuria 44198388 R30.0 patient room has strong urine odorUA / C&S pendingnur sing reports hygiene issues noted during straight cathincrea sed fluids encouraged . [id number] KIMBERLYN MERCEDES [address] [address] 11/05/2024 13:49:31 11/06/2024 12:22:28 Dysuria 56456662 R30.0 patient room has strong urine odornursin g reports hygiene issues noted during straight cathincrea sed fluids encouraged . Recurrent urinary tract infection 026171574 N39.0 see hpiC&S results shows sensitivit y to ceftriaxon ewill stop macrobid and start on ceftriaxon e 1 g qd for 3 daysdiscus sed with nursing [id number] KIMBERLYN MERCEDES [address] [address] 11/09/2024 13:20:09 11/18/2024 11:14:37 Recurrent urinary tract infection 515629282 N39.0 abx completedm onitor for reoccurenc ewater/ increased fluids encouraged Health Concerns Section Related Observation LastModified by Organization Detai ls LastModified Time None Recorded Concern Status LastModified by Organization Details LastModified Time None Recorded Payers Encounter Date Sequence Insurance Name Policy Number Policy Porras Covered Member ID Porras Member ID Guarantor Name 11/09/2024 2 [place] Anabela Gillette [id number] Anabela Gillette 11/09/2024 1 [place] [employer] Anabela Gillette [id number] Anabela Gillette Notes Date Note Type Note Provider Name and Address Organization Details Recorded Time 11/09/2024 text/html This is a 74 yr old femal patient seen for acute rounding visit. Patient is doing well, she is at her baseline in NAD. There sre no acute nursing concerns. She Kaye completed abx therapy and is not experiencing any UTI sx at this time. KIMBERLYN MERCEDES [address] [facility], [address], [place], [address], [facility] 11/18/2024 10:47:49 OBGyn Episode No OBEpisode recorded.
--- OUTSIDE RECORDS SUMMARY | 2024-12-07 06:21 | XMS_ITS | Data Portability ---
Author Organization [facility], Main Office Address [address] [place] [address] Care Team Providers Care Garageman Name Role Phone NIKITA LIN Primary Care Provide r СВЕТЛАНА ROBERSON 2ND FLOOR OTHER [phone] Assessment Encounter Date Assessment Date Assessment LastModified by Organization Details LastModified Time 10/22/2024 10/22/2024 Labs 09/14: [id number]-T 4.6-Bun 16- cr 0.7-wbc 7.1-hgb 9.4-hct 28.7-plt 222 Labs 09/28: Na 144- K 3.0-Bun 12- Cr 0.6-wbc 9.6-hgb 10.40 hct 31.0-plt 198 Labs 10/05:Na 141- K 3.7-Bun 13- Cr 0.6-wbc 5.5-hgb 10.7-hct 32.2-plt 163 Labs 10/13: Na 141-K 3.8-Bun 14-Cr 0.6-wbc 8.2-hgb 11.8-yye33-it t 188-calcium 12.7 Labs 10/19: Na 141- K 3.2-Bun 18-cr 0.6-wbc 3.2-hgb 11.5-hct 34.7-200 Not available 10/22/2024 09:56:09 10/26/2024 10/26/2024 Labs 09/14: [id number]-N 4.6-Bun 16- cr 0.7-wbc 7.1-hgb 9.4-hct 28.7-plt 222 Labs 09/28: Na 144- K 3.0-Bun 12- Cr 0.6-wbc 9.6-hgb 10.40 hct 31.0-plt 198 Labs 10/05:Na 141- K 3.7-Bun 13- Cr 0.6-wbc 5.5-hgb 10.7-hct 32.2-plt 163 Labs 10/13: Na 141-K 3.8-Bun 14-Cr 0.6-wbc 8.2-hgb 11.8-prs70-nx t 188-calcium 12.7 Labs 10/19: Na 141- K 3.2-Bun 18-cr 0.6-wbc 3.2-hgb 11.5-hct 34.7-200 Labs 10/26: Na 143-K 3.8-Bun 21- Cr 0.8-wbc 6.6-hgb 11.7-hct 35-plt 18- Not available 10/26/2024 14:34:38 11/02/2024 11/02/2024 Labs 09/14: [id number] 4.6-Bun 16- cr 0.7-wbc 7.1-hgb 9.4-hct 28.7-plt 222 Labs 09/28: Na 144- K 3.0-Bun 12- Cr 0.6-wbc 9.6-hgb 10.40 hct 31.0-plt 198 Labs 10/05:Na 141- K 3.7-Bun 13- Cr 0.6-wbc 5.5-hgb 10.7-hct 32.2-plt 163 Labs 10/13: Na 141-K 3.8-Bun 14-Cr 0.6-wbc 8.2-hgb 11.8-euq90-om t 188-calcium 12.7 Labs 10/19: Na 141- K 3.2-Bun 18-cr 0.6-wbc 3.2-hgb 11.5-hct 34.7-200 Labs 10/26: Na 143-K 3.8-Bun 21- Cr 0.8-wbc 6.6-hgb 11.7-hct 35-plt 18- Not available 11/02/2024 12:34:17 11/05/2024 11/05/2024 Labs 09/14: [id number]-J 4.6-Bun 16- cr 0.7-wbc 7.1-hgb 9.4-hct 28.7-plt 222 Labs 09/28: Na 144- K 3.0-Bun 12- Cr 0.6-wbc 9.6-hgb 10.40 hct 31.0-plt 198 Labs 10/05:Na 141- K 3.7-Bun 13- Cr 0.6-wbc 5.5-hgb 10.7-hct 32.2-plt 163 Labs 10/13: Na 141-K 3.8-Bun 14-Cr 0.6-wbc 8.2-hgb 11.8-lvh29-gm t 188-calcium 12.7 Labs 10/19: Na 141- K 3.2-Bun 18-cr 0.6-wbc 3.2-hgb 11.5-hct 34.7-200 Labs 10/26: Na 143-K 3.8-Bun 21- Cr 0.8-wbc 6.6-hgb 11.7-hct 35-plt 18- Not available 11/05/2024 14:20:13 11/09/2024 11/09/2024 Labs 09/14: [id number]-L 4.6-Bun 16- cr 0.7-wbc 7.1-hgb 9.4-hct 28.7-plt 222 Labs 09/28: Na 144- K 3.0-Bun 12- Cr 0.6-wbc 9.6-hgb 10.40 hct 31.0-plt 198 Labs 10/05:Na 141- K 3.7-Bun 13- Cr 0.6-wbc 5.5-hgb 10.7-hct 32.2-plt 163 Labs 10/13: Na 141-K 3.8-Bun 14-Cr 0.6-wbc 8.2-hgb 11.8-txa51-bk t 188-calcium 12.7 Labs 10/19: Na 141- K 3.2-Bun 18-cr 0.6-wbc 3.2-hgb 11.5-hct 34.7-200 Labs 10/26: Na 143-K 3.8-Bun 21- Cr 0.8-wbc 6.6-hgb 11.7-hct 35-plt 18- Not available 11/18/2024 10:42:00 Plan of Treatment [...] Address Organization Details Recorded Time Pulmonary emphysema 05118806 Active [address], [address], [place], [address], [email or web address] 3 10:46:22 Osteoarth ritis 302681575 Active [address], [address], [place], [address], [email or web address] 3 10:46:28 Asthma 456149610 Active [address], [address], [place], [address], [email or web address] 3 10:46:32 Cyst of breast 531288067 Completed 202209/07/2024 KIMBERLYN MERCEDES [address] [place] [address], [address], [place], [address], [email or web address] 4 20:44:27 Chronic obstructi ve pulmonary disease 47904137 Active [address], [address], [place], [address], [email or web address] 3 10:46:48 Obesity 527685974 Completed 202209/07/2024 KIMBERLYN MERCEDES [address] [place] [address], [address], [place], [address], [email or web address] 4 20:44:27 Depressiv e disorder 44984131 Active [address], [address], [place], [address], [facility] 3 10:47:08 Hyperlipi demia 48575704 Active [address], [address], [place], [address], [email or web address] 3 10:47:16 Polyp of colon 16701961 Completed 202209/07/2024 KIMBERLYN MERCEDES [address], [address], [place], [address], [email or web address] 4 20:44:27 History of deep vein thrombosi s 558564314 Active 2022 VANGIEDIMA LORENZANA [address], [address], [place], [address], [email or web address] 3 10:47:37 Essential hypertens ion 96069973 Active 2022 VANGIEDIMA LORENZANA [address], [address], [place], [address], [email or web address] 3 10:51:08 Closed fracture of left patella 675416222148 81064 Completed 202209/07/2024 KIMBERLYN MERCEDES [address], [place], [address], [email or web address] 4 20:44:27 Gastroeso phageal reflux disease without esophagit is 151089191 Active 2022 [facility] , [address], [place], [address], [email or web address] 3 10:57:14 Fall Active [address], [address], [place], [address], [email or web address] 3 11:02:17 Fracture of proximal end of femur 392016279 Completed 202309/07/2024 KIMBERLYN MERCEDES [address], [address], [place], [address], [email or web address] 4 10:10:21 Tobacco user 762639030 Active [address], [address], [place], [address], [email or web address] 4 15:12:34 Hypercalc emia 19757438 Completed 202309/07/2024 KIMBERLYN MRECEDES [address], [address], [place], [address], [email or web address] 4 20:44:27 History of thrombocy topenia 531443355201 08 Completed 202309/07/2024 KIMBERLYN MERCEDES [address] [facility], [address], [place], [address], [email or web address] 4 20:48:33 Constipat ion 36527093 Active 2023 Holly Robles MD [address] [facility], [address], [place], [address], [email or web address] 4 21:45:11 Fracture of proximal end of femur 748135684 Active 2023 KIMBERLYN MERCEDES [address] [place] [address], [address], [place], [address], [email or web address] 4 10:10:21 Problem Notes None recorded. Procedures Surgical History Date Name Laterality Status Provider Name and Address Organization Details Recorded Time ligation of fallopian tube completed [address], [facility] [address], [place], [address], [email or web address] 01/28/2023 10:47:49 cholecystectomy completed [address], [facility] [address], [place], [address], [email or web address] 01/28/2023 10:47:57 Imaging Results None recorded. Procedure [...] Avai lable Vitals Date Recorded Body height Provider Name an d Address Organization Details Last Updated DateTime 10/22/2024 172.72 cm KIMBERLYN MERCEDES [address] [facility], [address], [place], [address], [email or web address] 10/22/2024 09:55:23 Date Recorded Body height Provider Name an d Address Organization Details Last Updated DateTime 11/05/2024 172.72 cm HILARIOKIMBERLYN HOLLINS [address] [facility], [address], [place], [address], [email or web address] 11/05/2024 14:20:16 Date Recorded Body height Body temperature Respiratory rate Heart rate Oxygen saturation Oxygen saturation in Arterial blood by Pulse oximetry Systolic blood pressure Diastolic blood pressure Provider Name and Address Organization Details Last Updated DateTime 172.72 cm 98 [degF] 18 /min 71 /min 96 % 96 % 122 mm[Hg] 72 mm[Hg] KIMBERLYN MERCEDES [address] [facility], [address], [place], [address], [email or web address] 5 10:39:20 Social History Question Answer Notes LastModified by Organization Details LastModified Time Tobacco Smoking Status Former Smoker every day, 1 ppd VANGIE LORD [address] [facility], [address], [place], [address], [email or web address] 01/28/2023 10:48:58 Do You Have An [...] 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 Gynecological HistoryNo gynecological history recorded. Obstetrics History GPAL:G 0 P 0 0 0 0 Immunizations Vaccine Type Date Status Note Provider Nam e and Address Organization Details Recorded Time SARS-COV-2 (COVID-19) vaccine, UNSPECIFIED 1 completed Minnie Schwab [facility] 01/28/2023 16:51:35 SARS-COV-2 (COVID-19) vaccine, UNSPECIFIED 1 completed Minnie Schwab [facility] 01/28/2023 16:51:48 Tdap 5 completed Minnie Schwab [facility] 01/28/2023 16:52:09 influenza, unspecified formulation 1 completed Minnie Schwab [facility] 01/28/2023 16:52:33 pneumococcal conjugate PCV 7 6 completed iMnnie Schwab [facility] 01/28/2023 16:53:01 pneumococcal polysaccharide PPV23 2 completed Minnie Schwab [facility] 01/28/2023 16:53:16 zoster recombinant 9 completed [facility] 16:53:33 zoster live 2 completed Minnie Schwab [facility] 01/28/2023 16:53:50 Influenza, adjuvanted, quadrivalent, PF 2 completed Mily yang, [facility] 12/11/2023 11:33:48 Influenza, adjuvanted, quadrivalent, PF 3 completed Mily yang, [facility] 01/09/2024 11:17:44 Past Encounters Encounter ID Performer Location Encounter Start Date Encounter Closed Date Diagnosis/Indication Diagnosis SNOMED-CT Code Diagnosis ICD10 Code Diagnosis Note [id number] [facility] on [address] [place] [address] 01/28/2023 10:42:58 01/30/2023 14:52:45 Closed fracture of left patella 5318044968 1003953 S82.002D see HPI, s/p fallKnee immobilize r while OOBWBAT, PT/OT eval and treatmonit or pain control Hyperlipidemia 33158917 E78.5 lipitor 20 mg dailymonit or lipids outpt with PCP Essential hypertension 14288119 I10 cardizem 120 mg dailybenic ar 40-25 dailymonit or bps 136/78 today Gastroesop hageal reflux disease without esophagitis 171940141 K21.9 pepcid 20 mg BIDmonitor for reflux Chronic ob structive pulmonary disease 37430159 J44.9 combivent QIDmonitor resp statusenco urage smoking cessation Pulmonary emphysema 8743 3001 J43.9 see aboveencou rage cessation Depressive disorder 6508 9007 F32.A zoloft 100 mg dailymonit or mood, consult [facility] if needed Fall 2950853 R29.6 fell after getting OOBminimiz e fall riskPT/OT eval and treat [id number] Silverio Broussard MD [facility] at [facility] on [address] [place] [id number] 01/29/2023 13:50:17 01/31/2023 09:49:56 Fracture of fibula 99087409 S82.402D follow ortho recs; working w pt/ot;has knee immobilize r per ortho;cons ider aspirin anticoagul ation if patient is immobilize d; Essential hypertension 44894848 I10 asymptomat ic; hemodynami alysia stable; good rate; clear lungs; good sats; follow; History of deep vein thrombosis 711617222 Z86.718 noted;afte r knee surgery 2000;she seems to be adequately mobilized at this pointconsi amelia aspirin; Asthma 054704214 J45.90 9 asymptomat ic; on combivent; Hypercholesterolemia 136 14112 E78.00 on statin; Depressive disorder 2336 1287 F32.A well compensate d; on sertraline Medication monitoring 39 7815070 Z51.81 [facility] / Olmesartan -Hydrochlo rothiazide 40/25 mg/d; cardizem CD 120 mg/d;pulm / combivent; endo / lipitor 20 mg/d;heme /gi / pepcid;gu /neuro / sertraline 100 mg/d; [id number] VANGIE Gonzalez at [facility] on [address] [place] [address] 02/04/2023 09:11:52 02/06/2023 09:35:44 Closed fracture of left patella 5640393182 2333798 S82.002D see HPI, s/p fallKnee immobilize r while OOBWBAT, PT/OT to continue outpt with [facility] Hyperlipidemia 82648450 E78.5 lipitor 20 mg dailymonit or lipids outpt with PCP Essential hypertension 26473560 I10 cardizem 120 mg dailybenic ar 40-25 dailystabl e Gastroesop hageal reflux disease without esophagitis 937785357 K21.9 pepcid 20 mg BID Chronic ob structive pulmonary disease 35812992 J44.9 combivent QIDencoura ge smoking cessation Pulmonary emphysema 8743 3001 J43.9 see aboveencou rage cessation Depressive disorder 3398 9017 F32.A zoloft 100 mg daily Fall R29.6 minimize fall risk at homeremove scatter risk [id number] [place] [address] 07/18/2024 09:09:20 07/21/2024 09:00:14 Hyperlipidemia 58212481 E78.5 lipitor 20 mg dailymonit or lipids outpt with PCP Essential hypertension 56539704 I10 cardizem 300 mg dailyavali de dailymonit or bps 136/78 today Gastroesop hageal reflux disease without esophagitis 112807116 K21.9 pepcid 20 mg BIDmonitor for reflux Chronic ob structive pulmonary disease 72336532 J44.9 combivent QID prnmonitor resp statusenco urage smoking cessation Pulmonary emphysema 8743 3001 J43.9 see aboveencou rage cessation Depressive disorder 3548 9007 F32.A zoloft 100 mg dailyvitam in d3 dailymonit or mood, consult [facility] if needed Fall R29.6 see HPIminimiz e fall riskPT/OT eval and treat Tobacco user 479259877 Z 72.0 hx of heavy tobacco use and recently stopped secondary to stay at short-term rehab. She has not requested any nicotine replacemen t therapy while here but that can be offered if need be. Hypercalcemia 93597498 E 83.52 elevated serum calcium levels dating back to spring 2022.Mildl y elevated inpatient and do not appear to be causing her any symptomsHe r PTH was elevated suggesting primary hyperparat hyroidism. Patient should see endocrinol ogy through [facility].d tr aware to work on this Fracture o f proximal end of femur 123694911 S72.001A s/p pinningWBA T, PT/OT eval and treatmonit or pain controloxy codone 5 mg q 4 hours prnapap 650 mg q 6 hours prnlovenox 40 mg sq x 30 days [id number] MD GAMAL Mac [address] [place] [address] 07/20/2024 19:49:57 07/27/2024 09:02:40 Fracture of proximal end of femur 922133838 S72.021D Recovering as expected.C ontinue oxycodone 5 mg q 4 hrs prn and APAP 650 mg q 6 hrs prnContinu e lovenox 40 mg sq x 30 days for DVT prophylaxi s.Needs PT/OT for strengthen ing, balance, gait training, safety and function.C ontinue fall precaution s.Monitor for safety.F/U with ortho on 07/30 as planned. Essential hypertension 92163948 I10 In good control on diltiazem 300 mg qd and irbesartan /HCTZ 150/12.5 mgMonitor BP and labs. Hyperlipidemia 94581957 E78.49 Continue atorvastat in 20 mg qdMonitor labs as outpt. Gastroesop hageal reflux disease without esophagitis 894602086 K21.9 No current sxs.Contin ue famotidine 20 mg BIDMonitor for GI sxs. Chronic ob structive pulmonary disease 38864852 J43.8 No current sxs.Contin ue combivent 1 puff q 4 hrs prnMonitor resp statusCont inue to encourage smoking cessation Depressive disorder 3548 9007 F33.8 Continue sertraline 100 mg qdMood good today.[place] tor mood.Consu lt psych prn Fall R29.6 PT/OT as above.Cont inue fall precaution s.Monitor for safety. Tobacco user 225420828 Z 72.0 Continue to encourage usp cessation. Has not smoked since in hospital/r ehab. Hypercalcemia 72665232 E 83.52 Probable primary hyperparat hyroidism. To f/u with endo outpt.[place] tor Ca+ levels. History of thrombocytopenia 1508259529 9108 Z86.2 Dropped post-op inpt, now back to nl.Monitor labs. Constipation 62551554 K5 9.03 Will give MOM tonight and start miralax 17 gms qd.Continu e prn medsMonito r bowel function. [id number] VANGIE ANGEL [address] [place] [address] 07/23/2024 11:08:18 07/24/2024 12:29:48 Fracture of proximal end of femur 040578991 S72.001A s/p pinning- site healing wellWBAT, PT/OT eval and treatoxyco done 5 mg q 4 hours prn - still taking frequently apap 650 mg q 6 hours prnlovenox 40 mg sq x 30 days total Fall R29.6 continue PT dailyrepor ts pain with movement but tolerable with oxy Tear of skin 666574828 T 14.8XXD add xeroform to wound bed of skin tear on left arm and cover with foamchange dressing dailyonce healed [place] [id number] VANGIE ANGEL [address] [place] [address] 07/27/2024 09:01:00 07/29/2024 08:25:43 Fracture of proximal end of femur 029070804 S72.001A s/p pinning- site healing wellWBAT, PT/OT eval and treatConti nue oxycodone 5 mg q 4 hours prnContinu e apap 650 mg q 6 hours prnlovenox 40 mg sq x 30 days totalDress ing change orders entered: Change left hip surgical dressing once daily- cleanse with NS, pat dry and apply DSD and secure with tape. Monitor tata. Make note of drainage, color, and odor. Fall R29.6 continue PT dailyrepor ts pain with movement but tolerable with oxy prior to working with physical therapy Tear of skin 882775374 T 14.8XXD add xeroform to wound bed of skin tear on left arm and cover with foamContin ue to change dressing dailyonce healed [place] [id number] DOUG MEJIA NP-C GAMAL ANGEL [address] [place] [address] 07/29/2024 11:12:02 07/30/2024 11:51:48 COVID-19 278997638 U07.1 tested posstable on RA, no ssbaseline cough and wheezing w/ h/o COPDpaxlov id not indicated at this timemainta in precaution sretest per protocolmo nitor VS and resp. status [id number] VANGIE LORD GAMAL AGNEL [address] [place] [address] 08/03/2024 09:12:48 08/04/2024 12:59:14 COVID-19 196195720 U07.1 Recoveredm onitor VS and resp. status Fracture o f proximal end of femur 952698689 S72.001A s/p pinning- site healing wellContin ue WBAT, PT/OT eval and treatConti nue oxycodone 5 mg q 4 hours prnContinu e apap 650 mg q 6 hours prnlovenox 40 mg sq x 30 days totalDress ing change orders entered: Change left hip surgical dressing once daily- cleanse with NS, pat dry and apply DSD and secure with tape. Monitor tata. Make note of drainage, color, and odor. Tear of skin 494903519 T 14.8XXD add xeroform to wound bed of skin tear on left arm and cover with foamContin ue to change dressing daily [id number] VANGIE MALDONADOYoselin ANGEL [address] [place] [address] 08/06/2024 10:51:39 08/07/2024 13:04:19 COVID-19 445253260 U07.1 Recovered Fracture o f proximal end of femur 759969028 S72.001A s/p pinning- site healing wellContin ue WBAT, PT/OTConti nue oxycodone 5 mg q 4 hours prn- using randomly, on the and the Contin ue apap 650 mg q 6 hours prnlovenox 40 mg sq x 30 days totalDress ing change orders entered: Change left hip surgical dressing once daily- cleanse with NS, pat dry and apply DSD and secure with tape. Monitor tata. Make note of drainage, color, and odor. Tear of skin 044669561 T 14.8XXD healing Fall R29.6 continue PT daily Essential hypertension 24337088 I10 cardizem 300 mg dailyavali de dailymonit or bps Hyperlipidemia 77398405 E78.5 lipitor 20 mg dailymonit or lipids outpt with PCP Gastroesop hageal reflux disease without esophagitis 935526599 K21.9 pepcid 20 mg BIDmonitor for reflux none noted Chronic ob structive pulmonary disease 64541826 J44.9 combivent QID prnmonitor resp statusenco urage smoking cessation Pulmonary emphysema 8743 3001 J43.9 see aboveencou rage cessation Depressive disorder 7445 5787 F32.A zoloft 100 mg dailyvitam in d3 dailymonit or mood, consult [facility] if needed [id number] VANGIE LORD AGMAL ANGEL [address] [place] [address] 08/11/2024 09:55:34 08/12/2024 11:44:33 Fracture of proximal end of femur 449482287 S72.001A s/p pinning, site healedorde r placed to remove tata todayConti nue WBAT, PT/OTConti nue oxycodone 5 mg q 4 hours prn- using randomlyCo ntinue apap 650 mg q 6 hours prnlovenox 40 mg sq x 30 days total to end 08/18 Edema of l ower extremity 347719313 R60.0 consider lasix dailyadd cbc bmp bnp tomorrowel evate 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 Patient should see endocrinol ogy through [facility].1 1.8 corrected [id number] VANGIE PAYNERIMA [address] [place] [address] 08/19/2024 10:32:29 08/20/2024 13:56:24 Dizziness 798013259 R42 add cbc and bmp tomorrowen courage PO fluidscons ider IVF if neededmoni tor bps [id number] VANGIE ANGEL [address] [place] [address] 08/28/2024 09:55:39 08/31/2024 14:13:31 Dizziness 938240862 R42 resolved Edema of l ower extremity 396796644 R60.0 BNP in range for patientace wraps daily, off qhs Hypercalcemia 37023951 E 83.52 elevated serum calcium levels dating back to spring 2022.Mildl y elevated inpatient and do not appear to be causing her any symptomsHe r PTH was elevated suggesting primary hyperparat hyroidism. Patient should see endocrinol ogy through [facility].1 1.8 corrected Fracture o f proximal end of femur 485860065 S72.001A s/p pinning, site healedDC oxycodone 5 mg q 4 hours prn-not usingConti nue apap 650 mg q 6 hours prn COVID-19 376933005 U07.1 Recovered Essential hypertension 95979856 I10 cardizem 300 mg dailyavali de daily Hyperlipidemia 41226964 E78.5 lipitor 20 mg dailymonit or lipids outpt with PCP Gastroesop hageal reflux disease without esophagitis 097643141 K21.9 pepcid 20 mg BID Chronic ob structive pulmonary disease 73970394 J44.9 combivent QID prnencoura ge smoking cessation Pulmonary emphysema 8743 3001 J43.9 see aboveencou rage cessation Depressive disorder 3303 7925 F32.A zoloft 100 mg dailyvitam in d3 daily [id number] [facility] [address] [place] [address] 09/07/2024 07:41:45 09/08/2024 13:21:36 Closed fracture of hip 374774224 S72.001A s/p ORIFcontin ue lovenox 40 mg daily/dvt ppx for until 10/06conti nue tylenol and oxycodone prnPT/OT eval and TXfollow up with ortho in 2 weeksStapl es covered with dressing intact - not removed Essential hypertension 26042196 I10 meds held in acute care due to soft BPparamete rs to hold for SBP < 120continu e cardizem 300 mg Depressive disorder 1000 5122 F32.A Zoloft 100 mg daily Hypercalcemia 20783410 E 83.52 elevated serum calcium levels dating back to spring 2022.Mildl y elevated inpatient and do not appear to be causing her any symptomsHe r PTH was elevated suggesting primary hyperparat hyroidism. Patient should see endocrinol ogy through [facility].1 1.8 corrected Anemia fol lowing acute postoperative blood loss 1329326479 6491376 D62 surgery relatedhgb fell from 11.1 to 8.7did not require transfusio nmonitor hgb Hyperlipidemia 62833133 E78.5 lipitor 20 mg dailymonit or lipids outpt with PCP Gastroesop hageal reflux disease without esophagitis 295221661 K21.9 pepcid 20 mg BID Chronic ob structive pulmonary disease 93745421 J44.9 combivent QID prnencoura ge smoking cessation Asthma 514673778 J45.90 9 asymptomat ic; on combivent; History of deep vein thrombosis 362532233 Z86.718 after knee surgery 2000prior to fall not on anticoag due to active mobilityno w on lovenoxcon pharmaceutical analyst adding asa when lovenox is d/c Fall R29.6 PT/OTmaint ain safety Osteoarthritis 807867855 M19.90 continue tylenol prn [id number] MD СВЕТЛАНА Narvaez [address] [place] [address] 09/08/2024 13:34:28 09/09/2024 12:17:01 Closed fracture of hip 268996935 S72.001A see HPIright hip fx s/p ORIFfollow ortho recs and update with concernsmo nitor for pain controlPT OT eval and treatloven ox for EVT prophylaxi s Essential hypertension 59387156 I10 cardizem 300 mg qdmonitor bp and need to titrate Depressive disorder 3548 9007 F33.8 zoloft 100 mg qdcontinue dmonitor mood Anemia fol lowing acute postoperative blood loss 3762956969 9812179 D62 no transfusio n in hospitalre peat cbc orderediro n studies prn Hyperlipidemia 44396776 E78.2 lipitor 20 mg qdcontinue d Gastroesop hageal reflux disease without esophagitis 825147590 K21.9 famotidine 20 mg bidmonitor for sx relief Chronic ob structive pulmonary disease 69195030 J41.1 continue out patient medication smonitor albuterol utilizatio nencourage 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 Fall R29.6 PT OT eval and treatmonit or fall risk and need for increased support in community Osteoarthritis 763494827 M15.0 controlled with prn tylenoladd ed to PMH Hypokalemia 32505591 E87 .6 now on KCl 40 meqs qdrepeat bmpmonitor lytes [id number] KIMBERLYN MERCEDES [address] [place] [phone] 5 09/17/2024 09:31:46 09/21/2024 12:45:13 Closed fracture of hip 917134532 S72.001A s/p ORIFcontin ue PT/OTconti nue lovenox 40 mg daily/dvt ppx for until 10/06conti nue tylenol and oxycodone prnfollow up with ortho in 2 weeks 09/21/24 aples covered with dressing intact - not removed Essential hypertension 52276260 I10 BP stablecont inue cardizem 300 mg Depressive disorder 3548 9007 F32.A Zoloft 100 mg dailymood is good Hyperlipidemia 68091142 E78.5 lipitor 20 mg dailymonit or lipids outpt with PCP Gastroesop hageal reflux disease without esophagitis 898855592 K21.9 pepcid 20 mg BID Chronic ob structive pulmonary disease 11669324 J44.9 NO Increase WOBcombive nt QID prnencoura ge smoking cessation Fall R29.6 PT/OTmaint ain safety Fracture o f proximal end of femur 700790548 S72.001A s/p left proximal femur IM nail fixation 4cont inue PT/OT [id number] KIMBERLYN MERCEDES [address] [place] [address] 44475-388 5 09/21/2024 08:39:37 09/22/2024 11:47:04 Closed fracture of hip 707719478 S72.001A s/p ORIFcontin ue PT/OTconti nue lovenox 40 mg daily/dvt ppx for until 10/06conti nue tylenol and oxycodone prnfollow up with ortho in 2 weeks 09/21/24 aples covered with dressing intact - not removed Essential hypertension 26588276 I10 BP stablecont inue cardizem 300 mg Chronic ob structive pulmonary disease 51259042 J44.9 NO Increase WOBcombive nt QID prnencoura ge smoking cessation [id number] KIMBERLYN MERCEDES [address] [place] [address] 58632[address]931 5 10/01/2024 09:07:27 10/02/2024 10:23:31 Closed fracture of hip 888404130 S72.001A s/p ORIFcontin ue PT/OTconti nue lovenox 40 mg daily/dvt ppx for until 10/06conti nue tylenol and oxycodone prnfollow up with ortho in 2 weeks 09/21/24St aples covered with dressing intact - not removed Essential hypertension 28462079 I10 BP stablecont inue cardizem 300 mg Chronic ob structive pulmonary disease 12529429 J44.9 NO Increase WOBcombive nt QID prnencoura ge smoking cessation Acute hypokalemia 517070 03 E87.6 3.0not on diuretics , steroidsst art kcl 10 meq and recheck on 10/04 [id number] KIMBERLYN MERCEDES [address] [place] [address] 01736-759 5 10/05/2024 11:16:11 10/06/2024 11:11:03 Closed fracture of hip 610579590 S72.001A s/p ORIFcontin ue PT/OTconti nue lovenox 40 mg daily/dvt ppx for until 10/06conti nue tylenol and oxycodone prnfollow up with ortho in 2 weeks 09/21/24in cision healed Essential hypertension 98874366 I10 BP stablecont inue cardizem 300 mg Chronic ob structive pulmonary disease 96985745 J44.9 NO Increase WOBcombive nt QID prnencoura ge smoking cessation Acute hypokalemia 752100 03 E87.6 repleted po with kcl 10 meq improvemen t now noted 3.7? is decrease possible related to recent abx use she was on ciprofloxa jaden for UTIwill monitor K Pain of ri ght knee region 1317151632 39902 M25.561 reports pain started after hip repairdesc ribed as cramping, pain with dorsiflexi onshe is concerned for ? blood clotthere is no swelling or point tenderness will ord ultrasound will order tramadol 50 mg Q6 prn until pending results. [id number] KIMBERLYN MERCEDES DA [address] [place] [address] 05913-998 5 10/12/2024 12:11:08 10/15/2024 11:19:28 Closed fracture of hip 915726538 S72.001A s/p ORIFcontin ue PT/OTconti nue lovenox 40 mg daily/dvt ppx for until 10/06conti nue tylenol and oxycodone prnfollow up with ortho in 2 weeks 24in cision healed Essential hypertension 98735596 I10 BP stablecont inue cardizem 300 mg Chronic ob structive pulmonary disease 37285442 J44.9 NO Increase WOBcombive nt QID prnencoura ge smoking cessation Pain of ri ght knee region 9890007479 59898 M25.561 see hpiimaging negative for DVTreports pain started after hip repairdesc ribed as cramping, pain with dorsiflexi onshe is concerned for ? blood clotthere is no swelling or point tenderness Hypercalcemia 10367153 E 83.52 today 12.7elevat ed serum calcium levels dating back to spring 2022.Mildl y elevated inpatient and do not appear to be causing her any symptomsHe r PTH was elevated suggesting primary hyperparat hyroidism. refer [facility] sc[facility] with nursing to hold calcium and vit D for now [id number] KIMBERLYN MERCEDES [address] [place] [address] [place] [address] 10/15/2024 08:36:48 10/16/2024 12:00:47 Closed fracture of hip 051872753 S72.001A s/p ORIFcontin ue PT/OTconti nue lovenox 40 mg daily/dvt ppx for until 10/06conti nue tylenol and oxycodone prnincisio n healed Essential hypertension 34712394 I10 BP stablecont inue cardizem 300 mg Chronic ob structive pulmonary disease 09759797 J44.9 NO Increase WOBcombive nt QID prnencoura ge smoking cessation Pain of ri ght knee region 9957113806 52219 M25.561 see hpiimaging negative for DVTreports pain started after hip repairdesc ribed as cramping, pain with dorsiflexi onshe is concerned for ? blood clotthere is no swelling or point tenderness Hypercalcemia 84480782 E 83.52 3: 12.7elevat ed serum calcium levels dating back to spring 2022.Mildl y elevated do not appear to be causing her any symptomsHe r PTH was elevated suggesting primary hyperparat hyroidism. refer [facility]ocrinol og [facility] facility[facility] sc[facility] with nursing to hold calcium and vit D for nowmonitor for associated sx [id number] KIMBERLYN MERCEDES [address] [address] 5 10/19/2024 10:14:51 10/20/2024 14:17:10 Closed fracture of hip 640694325 S72.001A s/p ORIFcontin ue PT/OTconti nue tylenol and oxycodone prnincisio n healed Essential hypertension 50486736 I10 BP stablecont inue cardizem 300 mg Chronic ob structive pulmonary disease 57621684 J44.9 NO Increase WOBcombive nt QID prnencoura ge smoking cessation Pain of ri ght knee region 8087973292 92316 M25.561 see hpiimaging negative for DVTreports pain started after hip repairdesc ribed as cramping, pain with dorsiflexi onshe is concerned for ? blood clotthere is no swelling or point tenderness Hypercalcemia 13539230 E 83.52 [email or web address] 9: 11.6elevat ed serum calcium levels dating back to spring 2022.Mildl y elevated do not appear to be causing her any symptomsHe r PTH was elevated suggesting primary hyperparat hyroidism. refer to [facility]ocrinol og [facility] facility[facility] scussed with nursing to hold calcium and vit D for nowmonitor for associated sx Hypokalemia 48401479 E87 .6 see HPI/suspec t medication inducedK+ 3.2replace now with 20 meq for 1 dosewill add daily kcl 10 meq and continue to monitor. [id number] KIMBERLYN MERCEDES [address] [address] 5 10/22/2024 08:21:15 10/23/2024 13:25:04 Closed fracture of hip 934837419 S72.001A s/p ORIFcontin ue PT/OT- progressin g slowlycont inue tylenol and oxycodone prnincisio n healed Essential hypertension 26878950 I10 BP stablecont inue cardizem 300 mg Chronic ob structive pulmonary disease 74886615 J44.9 NO Increase WOBcombive nt QID prnencoura ge smoking cessation Pain of ri ght knee region 8013668027 88021 M25.561 imaging negative for DVTthere is no swelling or point tenderness will schedule apap 975 mg TID, pain seems to be interferin g with therapy endurance. discussed with patient and nursing. Hypercalcemia 03967899 E 83.52 [email or web address] 9: 11.6elevat ed serum calcium levels dating back to spring 2022.Mildl y elevated do not appear to be causing her any symptomsHe r PTH was elevated suggesting primary hyperparat hyroidism. refer to [facility] facility[facility] scussed with nursing to hold calcium and vit D for nowmonitor for associated sx Hypokalemia 02699248 E87 .6 see HPI/suspec t medication inducedK+ 3.2replace now with 20 meq for 1 dosewill add daily kcl 10 meq and continue to monitor. [id number] KIMBERLYN MERCEDES [address] [place] [address]49[address]246 5 10/26/2024 10:36:56 10/27/2024 12:05:26 Closed fracture of hip 931751136 S72.001A s/p ORIFcontin ue PT/OT- progressin g slowlycont inue tylenol and oxycodone prnincisio n healed Chronic ob structive pulmonary disease 63958970 J44.9 NO Increase WOBcombive nt QID prnencoura ge smoking cessation Pain of ri ght knee region 1814955949 12675 M25.561 imaging negative for DVTthere is no swelling or point tenderness continue apap 975 mg TID Hypokalemia 87204735 E87 .6 see HPI/suspec t medication inducedK+ 3.8continu e kcl 10 meq daily.bridgett tor labs [id number] KIMBERLYN MERCEDES [address] [place] [address] 81507-542 5 11/02/2024 10:15:17 11/03/2024 09:53:07 Closed fracture of hip 806106780 S72.001A s/p ORIFcontin ue PT/OT- progressin g slowlycont inue tylenol and oxycodone prnincisio n healed Chronic ob structive pulmonary disease 25595178 J44.9 NO Increase WOBcombive nt QID prnencoura ge smoking cessation Dysuria 30830029 R30.0 patient room has strong urine odorUA / C&S pendingnur sing reports hygiene issues noted during straight cathincrea sed fluids encouraged . [id number] KIMBERLYN MERCEDES [address] [address] 5 11/05/2024 13:49:31 11/06/2024 12:22:28 Dysuria 00694211 R30.0 patient room has strong urine odornursin g reports hygiene issues noted during straight cathincrea sed fluids encouraged . Recurrent urinary tract infection 475688782 N39.0 see hpiC&S results shows sensitivit y to ceftriaxon ewill stop macrobid and start on ceftriaxon e 1 g qd for 3 daysdiscus sed with nursing [id number] KIMBERLYN MERCEDES [address] [address] 5 11/09/2024 13:20:09 11/18/2024 11:14:37 Recurrent urinary tract infection 602414430 N39.0 abx completedm onitor for reoccurenc ewater/ increased fluids encouraged Health Concerns Section Related Observation LastModified by Organization Detai ls LastModified Time None Recorded Concern Status LastModified by Organization Details LastModified Time None Recorded Advance Directives Directive Y: Payers Encounter Date Sequence Insurance Name Policy Number Policy Porras Covered Member ID Porras Member ID Guarantor Name 10/22/2024 2 [place] [facility] [id number] [facility] 10/22/2024 1 [place] [facility] [id number] [facility] 10/26/2024 2 [place] [facility] [id number] [facility] 10/26/2024 1 [place] [facility] Rachel Gillette [id number] [facility] 11/02/2024 2 [place] [facility] [id number] [facility] 11/02/2024 1 [place] [facility] Anabela J Gillette [id number] [facility] 11/05/2024 2 [place] [facility] [id number] [facility] 11/05/2024 1 [place] [facility] Anabela J Gillette [id number] [facility] 11/09/2024 2 [place] [facility] Anabela Gillette [id number] [facility] 11/09/2024 1 [place] [facility] Anabela Rachel Gillette [id number] [facility] Notes Date Note Type Note Provider Name and Address Organization Details Recorded Time 10/22/2024 text/html This is 73-year-old female with past medical history of hypertension, COPD, hyperlipidemia, depression, OA. Admitted to from [facility] for rehab after acute care stay for the management of right hip fracture following mechanical fall. s/p ORIF by Dr Corley on 09/02/24.Post op complicated by ABLA, no blood transfusion required; and atelectasis improved with oxygen and incentive spirometry. Discharged on room air. seen for acute rounding visit. medically she is at her baseline in NAD. KIMBERLYN MERCEDES [address] [facility] [address], [place], [address], [email or web address] 10/22/2024 16:06:38 10/26/2024 text/html This is 73-year-old female seen for acute rounding visit. Per nursing she is doing ok, compliant with medications. On exam she is at her usually baseline in NAD, pleasant appears tired, she has no medically complaint. Urine smells strong, more water intake encouraged. Plan of care reviewed, her goal is to be able to discharge to home soon. She reports that therapy is going well, PT/OT notes reviewed, there has been several session noted that she stopped therapy early.. KIMBERLYN MERCEDES [address] [facility], [address], [place], [address], [email or web address] 10/26/2024 14:47:58 11/02/2024 text/html This is a 74 yr old femal patient seen for acute rounding visit. Per nursing, this past weekend she reported dysuria, a straight cath for urine UA was ordered and completed today. Patient tells me that she has been having sx for about 4 day(frequency and pressure) she has been afebrile KIMBERLYN MERCEDES [address] [facility], [address], [place], [address], [email or web address] 11/02/2024 12:41:41 11/05/2024 text/html This is a 74 yr old femal patient seen for acute rounding visit follow up for suspected UTI. Patient has been at her usually baseline in NAD, she has increased her fluid intake. She was started on macrobid on 11/03. C/S report showed UA is positive for proteus mirabilis with resistance to macrobid. KIMBERLYN MERCEDES [address] [facility], [address], [place], [address], [email or web address] 11/05/2024 15:15:00 11/09/2024 text/html This is a 74 yr old femal patient seen for acute rounding visit. Patient is doing well, she is at her baseline in NAD. There sre no acute nursing concerns. She Kaye completed abx therapy and is not experiencing any UTI sx at this time. KIMBERLYN MERCEDES [address] [facility], [address], [place], [address], [email or web address] 11/18/2024 10:47:49 OBGyn Episode No OBEpisode recorded.
--- OUTSIDE RECORDS SUMMARY | 2024-12-07 06:21 | XMS_ITS | Encounter Summary ---
Author Organization [facility] Address [id number] [place] [phone] Care Team Providers Care Income Tax Return Preparer Name Role Phone Saqib Lock MD Primary Care Provi amelia Encounter Details Date Type Department Care Team (Late st Contact Info) Description 11/16/2024 Telephone Lung Screening Program - [address] [phone] Jeanie Anders MA Social History Tobacco Use Types Packs/Day Years Used Date Smoking Tobacco: Never Assessed Sex and Gender Information Value Date Recorded Sex Assigned at Not on file Gender Identity Not on file Sexual Orientation Not on file documented as of this encounter Progress Notes * Jeanie Anders MA - 11/16/2024 1:09 PM EST Open in error documented in this encounter Plan of Treatment Upcoming Encounters Date Type Department Care Team (Late st Contact Info) Description 01/28/2025 9:30 AM EDT Appointment [facility] CT Scan [address] [place] [phone] documented as of this encounter Visit Diagnoses Not on filedocumented in this encounter Care Teams Income Tax Return Preparer Relationship Specialty Start Date End Date Saqib Lock MD [address] [place], [place] PCP - General 10/30/22 documented as of this encounter
--- OUTSIDE RECORDS SUMMARY | 2024-12-07 06:22 | XMS_ITS | Data Portability ---
Author Organization [facility], , [facility] Address [address] [place] [address] Care Team Providers Care Rv Parts And Service Director Name Role Phone JUDE SNOWDEN Hall Porter CHHAYA SOSA Primary Care Provider [phone] [facility] ROSY TRISTAN Urologist [phone] [facility] O THER Assessment Encounter Date Assessment Date Assessment LastModified by Organization Details LastModified Time 11/13/2023 11/13/2023 73yo woman, with a history of thyroid nodules, hypertension, kindly referred by HYDROGRAPHIC SURVEYOR Ian for primary hyperparathyroidism and question of repeat bmd testing, vitamin d dosing, and need for surgery. 12/08/15 DXA described l-spine t-score +0.7, which may be affected by degenerative change, right femoral neck t-score -2.1, z-score -1.4, which is consistent with osteopenia. Labs reviewed: 10/22/23 pth 179, 25oh vit d 45, 25oh vit d 45, cr 0.9, fasting glc 109, ca 11.1, albumin 3.1, Urine calcium 107mg/24h, urine cr 0.73g/24h, FECa 0.012 (107/11.1)/(730/0.9). Urine calcium 107mg/24h, urine cr 0.73g/24h, FECa 0.012 (107/11.1)/(730/0.9), 09/04/23 25oh vit d 41, pth 159, glc 109, cr 0.9, ca 11.6, albumin 3.8, 08/02/23 urine ca 52mg/24h, urine cr 0.6g/24h, 06/19/23 urine calcium 102mg/24h, FECa 0.006 (102/11)/(960/0.6) 05/02/23 25oh vit d 40, pth 119, a1c 5.6, 02/06/23 ca 11, corrected ca 11.3, 01/28/23 albumin 3.6, 11/16/16 pth 96pg/mL (Ref 9.6, 66.3), 11/16/16 25-oh vit d 30, iCa 5.9 mg/dl (Ref 4.8, 5.6), ca 10.6mg/dL (Ref 8.5, 10.3; range since 2014: 10.2, 10.7), cr 0.7, gfr 94. 09/25/21 DXA described L1:4 t-score -0.3, left femoral neck t-score -3.5, left 1/3 radius t-score -3.6, significant decrease of 14.9% of the left hip vs. 2018, which is consistent with worsening osteoporosis. She broke left knee at age 72y after falling down while standing up from bed. Urine calcium is normal. This creates some uncertainty. Genetic testing of the CASR gene might be helpful to clarify further. But genetic testing may be expensive. Fasting glucose is mildly increased and suggests being at risk for diabetes (fasting glucose 100 to 125mg/dL). We should monitor this over time. vitamin D stores are excellent. Parathyroid hormone is high. We again reviewed her repeatedly liminal urine calcium. I think a parathyroid adenoma is most likely, but familial hypocalciuric hypercalcemia is on the differential due to the indeterminate Fractional excretion of calcium and normal urine calcium. I suggest blood CASR genetic testing. I explained that this testing requires consent (unable to order without consent given in an in person appointment) and I am unable to tell her about insurance coverage for this. I am able to discuss consent and order this. But she declines this testing. I explained she could seek a second opinion from another occup therapist or a genetic consult. I think CASR testing will be normal, in which case surgical parathyroidectomy would then be appropriate. I spent 3 minutes counseling the patient on tobacco cessation. She will consider nicotrol inhaler. My total time spent today documenting and providing coordinated care for this patient is 40min. [email or web address] Not available 11/13/2023 12:17:52 06/15/2024 06/15/2024 High-Risk Surger y: NO Includes procedures like intraperitoneal, intrathoracic, or suprainguinal vascular surgeries. History of Ischemic Heart Disease: 0 History of myocardial infarction, positive exercise test, current chest pain considered due to myocardial ischemia, use of nitrate therapy, or ECG with pathological Q waves. History of Congestive Heart Failure: 0 History of heart failure, pulmonary edema, or paroxysmal nocturnal dyspnea. History of Cerebrovascular Disease: 0 History of stroke or transient ischemic attack (TIA). Diabetes Mellitus Requiring Insulin Therapy: 0 Diabetes managed with insulin. Preoperative Serum Creatinine > 2.0 mg/dL (177 ? ? ?mol/L): Cr 1.0 Not available 06/15/2024 12:31:26 Plan of Treatment Reminders Order Date Submit Date Provider Last Modified By Organization Details Last Modified Time Details Appointments None recorded. Lab culture, urine 2023 024 [facility], [address] [place] [address], [id number], 4 14:23:35 urinalysi s, dipstick, auto 2023 024 [facility], [address] [place] [address], [address], 4 15:32:30 urinalysi s, dipstick, auto 2023 024 [facility], [address] [place] [address], [address], 4 16:36:40 Referral pelvic floor therapy referral - 73 yo f w incontine nce 2023 024 [email or web address], [address], [place], [address], 4 15:37:34 vascular surgeon referral 2023 024 [email or web address] Not available 4 08:33:52 Procedures None recorded. Surgeries None recorded. Imaging US, abdominal aorta - 73 yo f w htn, smoker, hx of aneurysm in the mid to distal portion of the aorta. 2023 024 [facility] (Imaging), [address], [place], [address], 4 13:10:01 LDCT, chest, for lung cancer screening - last scan 11/07/23 (Nancy) wants [facility] as [facility] closer, current smoker, 30+ pack year, 5'6 , 244lbsPle ase enroll this patient in the LDCT Lung Cancer Screening Program (for ordering, follow up and shared decision making) 2023 024 [email or web address] [facility], [address] [place], [address], 4 08:51:18 Medication Orders Nicotrol 10 mg inhalatio n cartridge 2023 024 [id number] 500 [id number], [address], [place], [id number], 5 13:11:10 Cipro 500 mg tablet 2023 024 [id number], [address], [place], [id number], 11:46:33 Patient TargetsNo targets recorded. Patient Instructions Encounter Date Encounter Id Patient Instructions Last Modified By Organization Details Last Modified Time 04/23/2024 [id number] Follow up on 07/28/2024 for follow up visit. If any new or worsening concerns, contact the office. [email or web address] Not available 04/23/2024 13:22:56 Patient is seen and examined with the above student. Assessment and Plan formulated with the above student collaboratively with the patient. [email or web address] Negro Not available 04/23/2024 13:40:27 06/15/2024 [id number] PRE OPERATIVE MEDICAL EVALUATION : 1. No cardiovascular contraindication for surgery noted during exam at this time. The patient is a low risk for perioperative cardiovascular complications, and MAY proceed with surgery. 2. Will fax over Pre op. 3. Revised Cardiac Index Score: Low risk, with an estimated cardiac complication rate of 0.4%. 4. Health care proxy reviewed today and no changes. Copy in chart. 5. MOLST form reviewed today and no changes. Copy in chart. Not available 06/15/2024 12:33:40 Reason for Referral Pelvic Floor Therapy Referra l for Urinary incontinence 73 yo f w incontinence Referring Physician: Chhaya Sosa [facility], Encounter Date: 04/23/2024 Vascular Surgeon Referral fo r Aneurysm of infrarenal abdominal aorta Referring Physician: Chhaya Sosa [facility], Encounter Date: 06/15/2024 Results Created Date Observation Date Name Description Value Unit Range Abnormal Flag Note LastModifiedBy Organization Detail LastModifiedTime 10/22/2010/22/2023 PTH INTAC T PTH intact 178.6 pg/mL 9.6-66 .3 high Not Available [address], [address], 10/22/2023 14:24:37 10/22/20 23 10/22/2023 VITAM IN D 25-HY DROXY TOTAL vitamin D 25-hydroxy EIA 45.0 NG/mL 20.0-9 9.9 Thera py is based on measu remen t of total 25-OH D, with level s less than 20 ng/mL indic ative of Vitam in D defic iency . Level s betwe en 20ng/ mL and 30 ng/mL sugge st insuf ficie ncy. Optim al Level s are great er than 30 ng/mL . Not Available [address], [address], 10/22/2023 14:24:38 10/22/20 23 10/23/2023 RENAL PANEL glucose 109 mg/dL 70-100 high Not Available [address], [address], 10/23/2023 15:01:39 10/22/20 23 10/23/2023 RENAL PANEL BUN 12 mg/dL 7-18 Not Available [address], [address], 10/23/2023 15:01:39 10/22/20 23 10/23/2023 RENAL PANEL creatinine 0.9 mg/dL 0.8-1. 3 Not Available [address], [address], 10/23/2023 15:01:39 10/22/20 23 10/23/2023 RENAL PANEL B/C 13.3 ratio Not Available [address], [address], 10/23/2023 15:01:39 10/22/20 23 10/23/2023 RENAL PANEL GFR >=60ML /MIN mL/mi n normal >=60m L/min - Marlene l or midly reduc ed <60mL /min- Decre ased kidne y funct ion <15mL /min - Kidne y failu re [facility] calcu lates estim ated Glome rular Filtr ation Rate (eGFR ) using the Chron ic Kidne y Disea se Epide miolo gy Colla borat ion (CKD- EPI) Equat ion (Lucia r et. al 2020) as recom yamini d by the Natio nal Kidne y Found ation . eGFR is based on age, serum creat inine , and sex. CKD-E PI does not calcu late eGFR by race, does not apply to child manoj (age <18 years ), and shoul d not be used in pregn javier. Not Available [address], [address], 10/23/2023 15:01:39 10/22/20 23 10/23/2023 RENAL PANEL sodium 144 mmol/ L 136-14 5 Not Available [address], [address], 10/23/2023 15:01:39 10/22/20 23 10/23/2023 RENAL PANEL potassium 4.2 mmol/ L 3.5-5. 1 Not Available [address], [address], 10/23/2023 15:01:39 10/22/20 23 10/23/2023 RENAL PANEL chloride 104 mmol/ L 96-107 Not Available [address], [address], 10/23/2023 15:01:39 10/22/20 23 10/23/2023 RENAL PANEL anion gap 9.1 5.0-15 .0 Not Available [address], [address], 10/23/2023 15:01:39 10/22/20 23 10/23/2023 RENAL PANEL CO2 31 mmol/ L 21-32 Not Available [address], [address], 10/23/2023 15:01:39 10/22/20 23 10/23/2023 RENAL PANEL calcium 11.1 mg/dL 8.5-10 .3 high CWP=C onsis tent with previ ous. Not Available [address], [address], 10/23/2023 15:01:39 10/22/2010/23/2023 RENAL PANEL albumin 3.1 g/dL 3.4-5. 0 low Not Available [address], [address], 10/23/2023 15:01:39 10/22/20 23 10/23/2023 RENAL PANEL phosphorous 2.80 mg/dL 2.50-4 .90 Not Available [address], [address], 10/23/2023 15:01:39 10/22/20 23 10/24/2023 CALCI UM, 24 HOUR URINE (W/ CREAT ININE ) calcium/crea tinine ratio 146 mg/g_ creat 30-275 normal Not Available [facility] [address] [place] [address] [address], [place], [address], 10/24/2023 21:53:25 10/22/20 23 10/24/2023 CALCI UM, 24 HOUR URINE (W/ CREAT ININE ) calcium, 24 hour urine 107 mg/24 _h normal Refer ence Range 35-25 0 Low calci um diet 35-20 0 Not Available [facility] [address], [address], 10/24/2023 21:53:25 10/22/20 23 10/24/2023 CALCI UM, 24 HOUR URINE (W/ CREAT ININE ) creatinine, 24 hour urine 0.73 g/24_ h 0.50-2 .15 normal Not Available [facility] [address], [place], [address], 10/24/2023 21:53:25 11/19/19 24 11/19/2023 COMP. METAB OLIC PANEL glucose 99 mg/dL 70-100 Not Available [address], [address], 11/19/2023 13:51:51 11/19/19 24 11/19/2023 COMP. METAB OLIC PANEL BUN 17 mg/dL 7-18 Not Available [address], [address], 11/19/2023 13:51:51 11/19/19 24 11/19/2023 COMP. METAB OLIC PANEL creatinine 1.0 mg/dL 0.8-1. 3 Not Available [address], [address], 11/19/2023 13:51:51 11/19/19 24 11/19/2023 COMP. METAB OLIC PANEL B/C 17.0 ratio Not Available [address], [address], 11/19/2023 13:51:51 11/19/19 24 11/19/2023 COMP. METAB OLIC PANEL GFR 59.5 mL/mi n abnormal >=60m L/min - Marlene l or midly reduc ed <60mL /min- Decre ased kidne y funct ion <15mL /min - Kidne y failu re [facility] calcu lates estim ated Glome rular Filtr ation Rate (eGFR ) using the Chron ic Kidne y Disea se Epide miolo gy Colla borat ion (CKD- EPI) Equat ion (Lucia r et. al 2020) as recom yamini d by the Natio nal Kidne y Found ation . eGFR is based on age, serum creat inine , and sex. CKD-E PI does not calcu late eGFR by race, does not apply to child manoj (age <18 years ), and shoul d not be used in pregn javier. Not Available [address], [address], 11/19/2023 13:51:51 11/19/19 24 11/19/2023 COMP. METAB OLIC PANEL sodium 141 mmol/ L 136-14 5 Not Available [address], [address], 11/19/2023 13:51:51 11/19/19 24 11/19/2023 COMP. METAB OLIC PANEL potassium 3.9 mmol/ L 3.5-5. 1 Not Available [address], [address], 11/19/2023 13:51:51 11/19/19 24 11/19/2023 COMP. METAB OLIC PANEL chloride 101 mmol/ L 96-107 Not Available [address], [address], 11/19/2023 13:51:51 11/19/19 24 11/19/2023 COMP. METAB OLIC PANEL anion gap 7.3 5.0-15 .0 Not Available [address], [address], 11/19/2023 13:51:51 11/19/19 24 11/19/2023 COMP. METAB OLIC PANEL CO2 33 mmol/ L 21-32 high Not Available [address], [address], 11/19/2023 13:51:51 11/19/19 24 11/19/2023 COMP. METAB OLIC PANEL calcium 10.9 mg/dL 8.5-10 .3 high CWP=C onsis tent with previ ous. Not Available [address], [address], 11/19/2023 13:51:51 11/19/19 24 11/19/2023 COMP. METAB OLIC PANEL total protein 6.8 g/dL 6.4-8. 2 Not Available [address], [address], 11/19/2023 13:51:51 11/19/19 24 11/19/2023 COMP. METAB OLIC PANEL albumin 3.4 g/dL 3.4-5. 0 Not Available [address], [address], 11/19/2023 13:51:51 11/19/19 24 11/19/2023 COMP. METAB OLIC PANEL globulin 3.4 g/dL Not Available [address], [address], 11/19/2023 13:51:51 11/19/19 24 11/19/2023 COMP. METAB OLIC PANEL A/G 1.0 ratio 0.8-2. 0 Not Available [address], [address], 11/19/2023 13:51:51 11/19/19 24 11/19/2023 COMP. METAB OLIC PANEL total bilirubin 0.50 mg/dL 0.00-1 .00 Not Available [address], [address], 11/19/2023 13:51:51 11/19/19 24 11/19/2023 COMP. METAB OLIC PANEL AST 32 U/L 0-37 Not Available [address], [address], 11/19/2023 13:51:51 11/19/19 24 11/19/2023 COMP. METAB OLIC PANEL ALT 27 U/L 6-63 Not Available [address], [address], 11/19/2023 13:51:51 11/19/19 24 11/19/2023 COMP. METAB OLIC PANEL alk. phos. 70 U/L 50-136 Not Available [address], [address], 11/19/2023 13:51:51 11/19/19 24 11/19/2023 LIPID PANEL cholesterol 110 mg/dL <200 mg/dl Spike able 200-2 39 mg/dl Borde rline High >240 mg/dl High Not Available [address], [address], 11/19/2023 13:51:53 11/19/19 24 11/19/2023 LIPID PANEL triglyceride s 116 mg/dL <150 mg/dL Marlene l 150-1 99 mg/dL Borde rline High 200-4 99 mg/dL High >500 mg/dL Very High Not Available [address], [address], 11/19/2023 13:51:53 11/19/1911/19/2023 LIPID PANEL direct HDL 45 mg/dL <40 mg/dl - Major Risk for CHD >60 mg/dl - Negat abigail Risk for CHD Not Available [address], [address], 11/19/2023 13:51:53 11/19/1911/19/2023 DIREC T LDL direct LDL 45 mg/dL RISK CATEG ORY LDL GOAL _ CHD or CHD Risk Equiv alent s <100 mg/dl (10-y ear risk >20%) 2+ Risk Facto rs <130 mg/dl (10-y ear risk <= 20%) 0-1 Risk Facto r? <160 mg/dl ? Almos t all peopl e with 0-1 risk facto r have a 10 year risk <10%, thus 10 year risk asses ment in peopl e with 0-1 risk facto r is not marbin reddyy. Not Available [address], [address], 11/19/2023 13:51:54 04/23/20 24 04/23/2024 URINA LYSIS color DARK YELLOW yellow Not Available [address], [address], 04/23/2024 15:32:30 04/23/20 24 04/23/2024 URINA LYSIS clarity SLIGHT LY CLOUDY clear Not Available [address], [address], 04/23/2024 15:32:30 04/23/20 24 04/23/2024 URINA LYSIS glucose NEGATI VE negati ve Not Available [address], [address], 04/23/2024 15:32:30 04/23/20 24 04/23/2024 URINA LYSIS bilirubin 1+ negati ve abnormal Not Available [address], [address], 04/23/2024 15:32:30 04/23/20 24 04/23/2024 URINA LYSIS ketones TRACE negati ve abnormal Not Available [address], [address], 04/23/2024 15:32:30 04/23/20 24 04/23/2024 URINA LYSIS specific gravity 1.025 1.001- 1.035 Not Available [address], [address], 04/23/2024 15:32:30 04/23/20 24 04/23/2024 URINA LYSIS pH 5.5 5.0-8. 0 Not Available [address], [address], 04/23/2024 15:32:30 04/23/20 24 04/23/2024 URINA LYSIS protein 1+ negati ve abnormal Not Available [address], [address], 04/23/2024 15:32:30 04/23/20 24 04/23/2024 URINA LYSIS urobilinogen 0.2 E.U./D L <1.0 Not Available [address], [address], 04/23/2024 15:32:30 04/23/20 24 04/23/2024 URINA LYSIS nitrates POSITI VE negati ve abnormal Not Available [address], [address], 04/23/2024 15:32:30 04/23/20 24 04/23/2024 URINA LYSIS blood NEGATI VE negati ve Not Available [address], [address], 04/23/2024 15:32:30 04/23/20 24 04/23/2024 URINA LYSIS leukocytes 1+ negati ve abnormal Not Available [address], [address], 04/23/2024 15:32:30 04/23/20 24 04/23/2024 URINE , MICRO SCOPI C WBC 25-50 hpf 0-4/hp f Not Available [address], [address], 04/23/2024 16:05:00 04/23/20 24 04/23/2024 URINE , MICRO SCOPI C RBC 3-5 hpf 0-2/hp f Not Available [address], [address], 04/23/2024 16:05:00 04/23/20 24 04/23/2024 URINE , MICRO SCOPI C bacteria 2+ none seen Not Available [address], [address], 04/23/2024 16:05:00 04/23/20 24 04/23/2024 URINE , MICRO SCOPI C yeast NONE SEEN none seen Not Available [address], [address], 04/23/2024 16:05:00 04/23/20 24 04/23/2024 URINE , MICRO SCOPI C squamous epithelial cells 6 hpf 0-5 high Not Available [address], [address], 04/23/2024 16:05:00 04/23/20 24 04/23/2024 URINE , MICRO SCOPI C calcium oxalate crystals 3+ none seen Not Available [address], [address], 04/23/2024 16:05:00 04/23/20 24 04/23/2024 URINE , MICRO SCOPI C mucous NONE SEEN none seen Not Available [address], [address], 04/23/2024 16:05:00 04/23/20 24 04/27/2024 CULTU RE, URINE , ROUTI NE culture, urine, routine abnormal CULTU RE, URINE , ROUTI NE Micro Numbe r: [id number] Test Statu s: Final Speci men Sourc e: Urine Speci men Quali ty: Adequ ate Resul t: Great er than 100,0 00 CFU/m L of Esche jeannie a coli E.col i ----- ----- ----- - INT KATE AMOX/ CLAVU LANAT E S 4 AMPIC ILLIN R >=32 AMP/S ULBAC CHRISTENSEN I 16 CEFAZ JOSE ALFREDO NR <=4 2 CEFEP LEON S <=1 CEFTA ZIDIM E S <=1 CEFTR IAXON E S <=1 CIPRO FLOXA JADEN S <=0.2 5 GENTA MICIN S <=1 IMIPE NEM S <=0.2 5 LEVOF LOXAC IN S <=0.1 2 NITRO FURAN TOIN S <=16 PIP/T AZOBA CTAM S <=4 TOBRA MYCIN S <=1 TRIME THOPR IM/STAHL LFA R >=320 S=Tiffany cepti ble I=Int ermed iate R=Res istan t * = Not Teste d NR = Not Repor megha NN = See Thera py Comme nts THERA PY COMME NTS Note 1: For infec tions other than uncom plica megha UTI cause d by E. coli, K. pneum oniae or P. mirab ilis: Cefaz jose alfredo is resis tant if KATE > or = 8 mcg/m L. (Dist ingui shing susce ptibl e versu s inter media te for isola rhett with KATE < or = 4 mcg/m L requi res addit ional testi ng.) Note 2: For uncom plica megha UTI cause d by E. coli, K. pneum oniae or P. mirab ilis: Cefaz jose alfredo is susce ptibl e if KATE <32 mcg/m L and predi cts susce ptibl e to the oral agent s cefac ganesh, cefdi brandi, cefpo doxim e, cefpr ozil, cefur oxime , cepha lexin and lorac arbef . Not Available [facility] [address] [place] [address] B, [place], [address], 04/27/2024 14:23:35 05/15/20 24 05/15/2024 URINA LYSIS color YELLOW yellow Not Available [address], [address], 05/15/2024 16:36:40 05/15/20 24 05/15/2024 URINA LYSIS clarity CLEAR clear Not Available [address], [address], 05/15/2024 16:36:40 05/15/20 24 05/15/2024 URINA LYSIS glucose NEGATI VE negati ve Not Available [address], [address], 05/15/2024 16:36:40 05/15/20 24 05/15/2024 URINA LYSIS bilirubin 1+ negati ve abnormal Not Available [address], [address], 05/15/2024 16:36:40 05/15/20 24 05/15/2024 URINA LYSIS ketones TRACE negati ve abnormal Not Available [address], [address], 05/15/2024 16:36:40 05/15/20 24 05/15/2024 URINA LYSIS specific gravity 1.025 1.001- 1.035 Not Available [address], [address], 05/15/2024 16:36:40 05/15/20 24 05/15/2024 URINA LYSIS pH 6.0 5.0-8. 0 Not Available [address], [address], 05/15/2024 16:36:40 05/15/20 24 05/15/2024 URINA LYSIS protein 1+ negati ve abnormal Not Available [address], [address], 05/15/2024 16:36:40 05/15/20 24 05/15/2024 URINA LYSIS urobilinogen 1.0 E.U./D L <1.0 abnormal Not Available [address], [address], 05/15/2024 16:36:40 05/15/20 24 05/15/2024 URINA LYSIS nitrates NEGATI VE negati ve Not Available [address], [address], 05/15/2024 16:36:40 05/15/20 24 05/15/2024 URINA LYSIS blood NEGATI VE negati ve Not Available [address], [address], 05/15/2024 16:36:40 05/15/20 24 05/15/2024 URINA LYSIS leukocytes TRACE negati ve abnormal Not Available [address], [address], 05/15/2024 16:36:40 05/15/20 24 05/15/2024 URINE , MICRO SCOPI C WBC 2-4 hpf 0-4/hp f Not Available [address], [address], 05/15/2024 17:02:35 05/15/20 24 05/15/2024 URINE , MICRO SCOPI C RBC 0-2 hpf 0-2/hp f Not Available [address], [address], 05/15/2024 17:02:35 05/15/20 24 05/15/2024 URINE , MICRO SCOPI C hyaline casts 1 lpf 0-2 Not Available [address], [address], 05/15/2024 17:02:35 05/15/20 24 05/15/2024 URINE , MICRO SCOPI C bacteria TRACE none seen Not Available [address], [address], 05/15/2024 17:02:35 05/15/20 24 05/15/2024 URINE , MICRO SCOPI C yeast NONE SEEN none seen Not Available [address], [address], 05/15/2024 17:02:35 05/15/20 24 05/15/2024 URINE , MICRO SCOPI C squamous epithelial cells 3 hpf 0-5 Not Available [address], [address], 05/15/2024 17:02:35 05/15/20 24 05/15/2024 URINE , MICRO SCOPI C mucous NONE SEEN none seen Not Available [facility] [address] [facility], [place], [address], 05/15/2024 17:02:35 10/23/20 23 10/23/2023 US, retro perit oneum CLINIC AL HISTOR Y: Freque nt UTIs and urinar y freque ncy TECHNI QUE: 2D sonogr aphy of the kidney s. COMPAR DALIA: July 01, 2023 FINDIN GS: Right kidney 10.4 x 5 cm The right kidney is normal in echote xture. There is no solid mass, stone, or hydron ephros is. There are multip le right renal cysts The larges t is in the upper pole measur ing 2 x 1.6 x 1.8 cm. Left kidney 14.6 x 5.4 cm The left kidney is normal in echote xture. There is no solid mass, stone, or hydron ephros is. There are multip le left renal cysts The larges t is in the midpol e measur ing 4.6 x 3.1 x 4.2 cm IMPRES JANAY: Bilate ral simple renal cysts. Readin suman Physic brendon: Dustin [facility] (Imaging) [address], [place], [address], 10/24/2023 07:40:14 11/19/19 24 11/07/2023 LDCT, chest , for lung cance r scree suzie No observ ation record ed. [facility] Imaging Dept [address] [place] [address], [address], 11/19/2023 10:17:36 11/19/19 24 11/19/2023 CT, chest No observ ation record ed. [facility] Lung Cancer Screening Program [address] [place] [address], [address], 12/03/2023 14:26:26 11/19/19 24 11/19/2023 CT, chest No observ ation record ed. [facility] Diagnosit Imaging Dept [address] [place], [address], 12/03/2023 14:26:27 04/30/20 24 04/30/2024 US, abdom inal aorta CLINIC AL HISTOR Y: Abdomi nal aortic aneury sm. Follow -up. TECHNI QUE: 2D sonogr aphy of the aorta perfor med. COMPAR DALIA: 023, 022 FINDIN GS: Proxim al aorta 2.5 x 2.8 cm. Mid aorta 2.8 x 2.7 cm. Distal aorta 3.9 x 3.7 cm. The iliac arteri es are obscur ed by bowel gas. IMPRES JANAY: 1. Infrar enal abdomi nal aortic aneury sm reachi ng 3.9 x 3.7 cm. Prior measur ements charac terize the locati on of the aneury sm as the mid aorta with measur ements also reachi ng 3.7 cm. Allowi ng for differ ences in locali zation , there has not been a signif icant increa se in diamet er of the aneury sm. 2. The iliac arteri es are obscur ed on the curren t study. Readin g Physic brendon: Brad Bernal ms [facility] (Imaging) [address], [place], [address], 05/01/2024 09:17:50 Result Notes None recorded. Problems Name Problem SNOMED Code Status Onset Date Resolution Date Notes Provider Name and Address Organization Details Recorded Time Hyperten sive disorder [id number] Completed 12/25/2016 Chhaya Sosa NP [address] [place] [address], [id number] , [facility] 13:27:23 Tobacco user [id number] Active Started smoking at 16 ; LDCT DUE Chhaya Sosa NP [address] [place] [address], [address] , [facility] 12:50:21 Chronic obstruct abigail pulmonar y disease 47251420 Active Chhaya Sosa NP [address] [place] [address], , [facility] 13:27:23 Costal chondrit is 12617168 Active Chhaya Sosa NP [address] [place] [address], , [facility] 13:27:23 Shoulder pain [id number] Cali Sosa NP [address] [place] [address], , [facility] 13:27:23 Morbid obesity 300114568 Active Chhaya Sosa NP [address] [place] [address], , [facility] 13:27:23 Major depressi ve disorder [id number] Active F32.9 = no QUENTIN Score. Please code severity or remissio n level for a QUENTIN Score. Chhaya Sosa NP [address] [place] [address], , [facility] 13:27:23 Hyperlip idemia [id number] Cali Sosa NP [address] [place] [address], , [facility] 13:27:23 Anxiety [id number] Cali Sosa NP [address] [place] [address], , [facility] 13:27:23 Unexplai gerardo weight loss [id number] Cali Sosa NP [address] [place] [address], , [facility] 13:27:23 Benign essentia l hyperten janay [id number] Cali Sosa NP [address] [place] [address], , [facility] 13:27:23 Dyspnea [id number] Cali Sosa NP [address] [place] [address], , [facility] 13:27:23 Standard chest X-ray abnormal [id number] Cali Sosa NP [address] [place] [address], [address] , [facility] 13:27:23 Hypercal cemia 27148486 Completed 201612/25/2016 Eunice Short NP [address] [place] [address], [address] , [facility] 13:16:19 Primary hyperpar athyroid ism 10813169 Active 2016 Chhaya Sosa NP [address] [place] [address], [address] , [facility] 13:27:23 Abdomina l aortic aneurysm 119233360 Active 05/2023 no change On ultrasou nd. 3cm on abd CT 11/2016. 3.7x3.7 cm on US 04/10/22 essentia lly stable from 10/03/21 (3.6x3.6 cm) Chhaya Sosa NP [address] [place] [address], , [facility] 20:31:55 Osteopen ia [id number] Completed 201612/16/2019 Eunice Short NP [address] [place] [address], , [facility] 20:33:00 Knee pain Active 2016 Chhaya Sosa NP [address] [place] [address], , [facility] 13:27:23 Osteopor osis 77965912 Active 2019 Chhaya Sosa NP [address] [place] [address], , [facility] 13:27:23 Osteoart hritis of knee 540521515 Active 2020 Eunice Short NP [address] [place] [address], [address] , [facility] 18:32:43 Hyperten sive disorder 92102972 Active 2021 Chhaya Sosa NP [address] [place], [address] , [facility] 13:27:23 Vitamin D deficien cy 43794374 Active 2021 Chhaya Sosa NP [address] [place], [address] , [facility] 13:27:23 Adenomat ous polyp of colon 437567581 Active 2022 2020, repeat in 3 yrs Chhaya Sosa NP [address] [place], [address] , [facility] 16:46:35 Fracture of fibula 03629572 Active 01/31 left Chhaya Sosa NP [address] [place] [address], [address] , [facility] 10:21:52 Admissio n to [facility] facility Active 08/0407/15/2024 an did Open reductio n internal fixation fx intertro shelleyi c. going to [facility]. 01/31 adm to [facility] for fx fibula Chhaya Sosa NP [address] [place] [address], [address] , [facility] 4 16:09:14 Fall Active 2023 [facility] D/C Demetrice Ringer null, [facility] 4 14:40:47 Intertro chanteri c fracture 786652777 Active 2023 [facility] D/C Demetrice Ringer null, [facility] 4 14:41:10 Fracture of femur 90334803 Active 2023 cdh d/c Demetrice Ringer null, [facility] 4 09:38:54 Problem Notes None recorded. Procedures Surgical History Date Name Laterality Status Provider Name and Address Organization Details Recorded Time 12/01/19 25 Smoking cessation counseling cancelled ROYA Vanessa [facility] 11/30/2024 14:27:11 12/01/19 25 Medicare Wellness Visit cancelled Sera Livingston Yoselin [facility] 11/30/2024 14:26:21 09/15/20 24 Post hospital/SNF follow-up/Trans itional Care cancelled Talwendiyung Dustin [facility] 09/15/2024 10:22:13 02/21/20 19 Smoking cessation counseling completed Staci Barahona [facility] 02/20/2019 10:19:13 11/13/19 19 Smoking cessation counseling completed Jessenia Reynoso RN, BSN [facility] 11/13/2018 11:08:20 11/13/19 19 Carbon Monoxide Testing completed Jessenia Reynoso RN, BSN [facility] 11/13/2018 11:08:20 05/06/20 18 Smoking cessation counseling completed Flora Samuel RN [facility] 05/06/2018 10:51:44 05/06/20 18 Medicare Wellness Visit completed Flora Samuel RN [facility] 05/06/2018 10:51:33 05/06/20 18 Carbon Monoxide Testing completed Flora Samuel RN [facility] 05/06/2018 10:51:44 05/06/20 18 Advanced Care Planning completed Eunice Short NP [address] [place] [address], [phone] 05/07/2018 21:10:04 09/27/20 17 Smoking cessation counseling completed Amelie Flood LPN [facility] 09/27/2017 15:44:31 09/27/20 17 Carbon Monoxide Testing completed Amelie Flood LPN [facility] 09/27/2017 15:44:31 08/13/20 17 Smoking cessation counseling completed Sera Livingston [facility] 08/13/2017 11:45:27 08/13/20 17 POC Urinalysis Testing completed Sera Livingston [facility] 08/13/2017 11:39:25 05/16/20 17 Smoking cessation counseling completed Nelly Burnette CMA [facility] 05/16/2017 13:26:24 05/16/20 17 Suture/staple Removal completed Eunice Short NP [address] [place], [address], [facility] 05/16/2017 14:01:29 04/29/20 17 Smoking cessation counseling completed Donna Gray [facility] 04/29/2017 12:04:30 04/29/20 17 Carbon Monoxide Testing completed Donna Gray [facility] 04/29/2017 12:04:30 04/12/20 17 Smoking cessation counseling completed Sirena Catalan [facility] 04/12/2017 08:33:57 04/12/20 17 Carbon Monoxide Testing completed Sirena Catalan [facility] 04/12/2017 08:45:15 03/25/20 17 Smoking cessation counseling completed Nelly Burnette [facility] 03/25/2017 11:14:27 03/25/20 17 Carbon Monoxide Testing completed Nelly Burnette [facility] 03/25/2017 11:19:34 03/12/20 17 [id number]: Therapeutic Exercise completed Paige Mccarty, PT [address] [place], [address], [facility] 03/12/2017 22:19:10 03/11/20 17 Smoking cessation counseling completed Isabella Spain [facility] 03/11/2017 09:20:38 03/11/20 17 Medicare Wellness Visit completed Isabella Spain [facility] 03/11/2017 09:20:04 03/11/20 17 Carbon Monoxide Testing completed Isabella Spain [facility] 03/11/2017 09:33:13 03/11/20 17 Medicare Risk for Falls Screen completed Isabella Spain [facility] 03/11/2017 09:28:14 02/19/20 17 [id number]: Therapeutic Exercise completed Paige Mccarty, PT [address] [place], [address], [facility] 02/19/2017 07:58:08 02/09/20 17 Smoking cessation counseling completed KIMBERLYN Ramos [address] [place], [address], [facility] 02/08/2017 16:42:38 02/09/20 17 POC Urinalysis Testing completed Evelyn Raphaelkatharinejose antonio [facility] 02/08/2017 16:22:27 01/01/20 17 Smoking Cessation Counselling completed Paige Mccarty, PT [address] [place], [address], [facility] 01/01/2017 10:09:35 01/01/20 17 [id number]: PT Eval, Moderate Complexity completed Paige Mccarty, PT [address] [place], [address], [facility] 01/02/2017 21:17:15 12/25/19 17 Smoking cessation counseling completed Nelly Burnette [facility] 12/25/2016 16:10:51 12/25/19 17 Carbon Monoxide Testing completed Nelly Burnette [facility] 12/25/2016 16:17:37 08/07/20 16 Smoking cessation counseling completed Nelly Burnette [facility] 08/07/2016 15:35:08 08/07/20 16 Carbon Monoxide Testing completed Nelly Burnette [facility] 08/07/2016 15:42:39 08/07/20 16 POC Urinalysis Testing completed Nelly Burnette [facility] 08/15/2016 15:26:49 07/06/20 16 Smoking cessation counseling completed Ashley [facility] 07/06/2016 10:38:50 07/06/20 16 Carbon Monoxide Testing completed Ashley [facility] 07/06/2016 10:54:18 06/22/20 16 [id number]: PT Evaluation completed Paige Mccarty, PT [address] [place], [address], [facility] 06/23/2016 22:35:11 06/08/20 16 [facility] 10:30:42 06/08/20 16 Carbon Monoxide Testing [facility]/08[facility]2016 10:35:43 03/09/20 16 Smoking cessation counseling completed Nelly Burnette [facility] 03/09/2016 11:16:13 03/09/20 16 Medicare Wellness Visit completed Nelly Burnette [facility] 03/09/2016 11:15:14 03/09/20 16 Carbon Monoxide Testing completed Nelly Burnette [facility] 03/09/2016 11:30:10 03/09/20 16 Medicare Risk for Falls Screen completed Nelly Burnette [facility] 03/09/2016 11:30:34 07/28/20 15 Smoking cessation counseling completed Nelly Burnette [facility] 07/28/2015 11:00:21 03/07/20 15 Medicare Wellness Visit completed Jolly Baumann LPN [facility] 03/07/2015 14:58:35 02/02/20 15 Smoking cessation counseling completed Viviane Kebede [facility] 02/01/2015 11:51:54 Imaging Results Imaging Date Name Status LastModified by Organization Details LastModified Time 10/23/2023 US, retroperitoneum completed galo [facility] (Imaging) [address], [place], [address], 10/24/2023 07:40:14 11/07/2023 LDCT, chest, for lung cancer screening completed [address] [facility] [address] [place] [address], [address], 11/19/2023 10:17:36 11/19/2023 CT, chest completed [facility] [address] [place] [address], [address], 12/03/2023 14:26:26 11/19/2023 CT, chest completed [facility] [address] [place] [address], [address], 12/03/2023 14:26:27 04/30/2024 US, abdominal aorta completed yas crockett [facility] (Imaging) [address] [place], [address], 05/01/2024 09:17:50 Procedure Notes None recorded. Medical Equipment None Reported. Allergies No known drug allergies Medications Name Sig Start Date Stop Date Status Note LastModified by Organization Details LastModified Time Prescript ion - Clarifica tion 03/11 completed Silversc ript Not Available Not Available Not Available mirixa case $12 MIRIXA CASE $12 03/11 completed Not Available Not Available Not Available atorvasta tin 20 mg tablet TAKE 1 TABLET BY MOUTH EVERY DAY active Not Available Not Available No t Available nicotine 14 mg/24 hr daily transderm al patch Apply 1 patch every day by transder mal route. 08/13 completed Not Available Not Available Not Available irbesarta n 150 mg-hydroc hlorothia zide 12.5 mg tablet TAKE 1 TABLET BY MOUTH EVERY DAY active Not Available Not Available No t Available azithromy jaden 250 mg tablet 2 tablets on day 1, then one a day for 4 days 06/08 completed Not Available Not Available Not Available diltiazem CD 180 mg capsule,e xtended release 24 hr TAKE 1 CAPSULE BY MOUTH EVERY DAY 08/13 completed Not Available Not Available Not Available nicotine (polacril ex) 2 mg gum Chew 1 piece of gum every 2 hours by oral route as needed. 04/29 completed Not Available Not Available Not Available ranitidin e 300 mg tablet take 1 tablet by mouth once daily at bedtime 03/14 completed recalled Not Available Not Available Not Available diltiazem CD 240 mg capsule,e xtended release 24 hr TAKE 1 CAPSULE BY MOUTH EVERY DAY 12/31 completed not taking Not Available Not Available Not Available sucralfat e 1 gram tablet 12/16 completed Not Available Not Available Not Available Monistat 7 2 % vaginal cream INSERT 1 APPLICAT OR FULL VAGINALL Y EVERY DAY FOR 7 DAYS active Not Available Not Available No t Available ergocalci ferol (vitamin D2) 10 mcg (400 unit) tablet Take 2 tablets by oral route for 30 days. 06/12 completed Not Available Not Available Not Available sertralin e 100 mg tablet TAKE 1 TABLET BY MOUTH EVERY DAY active Not Available Not Available No t Available clotrimaz ole 1 % vaginal cream APPLY SMALL AMOUNT VAGINALL Y TO THE AFFECTED AREA TWICE DAILY NEEDED active Not Available Not Available No t Available potassium chloride ER 10 mEq tablet,ex tended release active Not Available Not Available Not Available ciproflox acin 250 mg tablet TAKE ONE TABLET EVERY 12 HOURS BY ORAL ROUTE FOR THREE DAYS 12/16 completed Not Available Not Available Not Available amlodipin e 5 mg tablet Take 1 tablet every day by oral route for 30 days. 11/01 completed dose increase d. Not Available Not Available Not Available ciproflox acin 500 mg tablet TAKE 1 TABLET BY MOUTH TWICE DAILY 06/15 completed Not Available Not Available Not Available sulfameth oxazole 800 mg-trimet hoprim 160 mg tablet TAKE 1 TABLET BY MOUTH EVERY 12 HOURS FOR 7 DAYS 06/29 completed Not Available Not Available Not Available Nicotrol 10 mg inhalatio n cartridge inhale by puffing continuo usly for up 20min; use up to 6 cartridg es per day; graduall y reduce dose over 3mo; Insert cartridg e into inhaler and push hard until it pops into place. Replace mouthpie ce and twist the top and bottom so that markings do not line up. Clean mouthpie ce regularl y with soap and water. 2023 active does not use 06/15/24 KRB Not Available Not Available Not Available tramadol 50 mg tablet Take 1 tablet every 6 hours by oral route as needed for 14 days. 10/11 completed Not Available Not Available Not Available triamcino lone acetonide 0.1 % topical cream APPLY THIN LAYER TOPICALL Y TO THE AFFECTED AREA TWICE DAILY FOR 14 DAYS active Not Available Not Available No t Available diltiazem ER 120 mg capsule,e xtended release 12 hr Take 1 capsule twice a day by oral route as directed for 30 days. 2014 active Not Available Not Available Not Avai lable famotidin e 20 mg tablet TAKE 1 TABLET BY MOUTH TWICE DAILY active Not Available Not Available No t Available diltiazem CD 300 mg capsule,e xtended release 24 hr TAKE 1 CAPSULE BY MOUTH EVERY DAY active Not Available Not Available No t Available amlodipin e 10 mg tablet take 1 tablet by mouth once daily 2014 active Not Available Not Available Not Avai lable cephalexi n 500 mg capsule 11/13 completed Not Available Not Available Not Available erythromy jaden 5 mg/gram (0.5 %) eye ointment APPLY TO AFFECTED EYE(S) 3 TIMES DAILY 2014 active Not Available Not Available Not Avai lable neomycin- polymyxin -dexameth 3.5 mg/mL-10, 000 unit/mL-0 .1% eye drops SHAKE LIQUID AND INSTILL 1 DROP IN LEFT EYE FOUR TIMES DAILY active Not Available Not Available No t Available lidocaine 5 % topical patch APPLY 1 PATCH TO SKIN ONCE DAILY; MAY WEAR UP TO 12 HOURS 06/08 completed Not Available Not Available Not Available Citrucel 500 mg tablet Take 2 tablets by oral route. 2022 active per [facility] Not Available Not Available Not Available nicotine 21 mg/24 hr daily transderm al patch apply 1 patch once daily 03/02 completed not using 0-sk Not Available Not Available Not Available omeprazol e 20 mg capsule,d elayed release TAKE 1 CAPSULE BY MOUTH TWICE DAILY 06/12 completed 04/06/22 pt without symptoms ; we will stop today and see if symptoms return., not taking 08/13/22 azucena Not Available Not Available Not Available diclofena c sodium 75 mg tablet,de layed release take 1 tablet by mouth twice a day 12/26 completed Not Available Not Available Not Available diltiazem CD 120 mg capsule,e xtended release 24 hr TAKE ONE CAPSULE BY MOUTH EVERY DAY active Not Available Not Available No t Available bisacodyl 5 mg tablet,de layed release TAKE 4 TABLETS BY MOUTH DIRECTED active has not had colo yet 06/15/24 KRB Not Available Not Available Not Available mupirocin 2 % topical ointment apply to affected area three times a day 2014 active Not Available Not Available Not Avai lable losartan 50 mg-hydroc hlorothia zide 12.5 mg tablet active Not Available Not Available No t Available ketoconaz ole 2 % topical cream FABIO EXT AA QD active using under breasts as needed Not Available Not Available Not Available amoxicill in 500 mg-potass ium clavulana te 125 mg tablet TAKE 1 TABLET BY MOUTH EVERY 12 HOURS FOR 7 DAYS 07/31 completed not taking 07/11/23 SM Not Available Not Available Not Available nicotine 7 mg/24 hr daily transderm al patch Apply 1 patch every day by transder mal route. 01/19 completed not using 0-sk Not Available Not Available Not Available neomycin 3.5 mg/g-poly myxin B 10,000 unit/g-de xameth 0.1 % eye oint active Not Available Not Available Not Available Benicar 40 mg tablet Take 1 tablet every day by oral route. 06/12 completed Not Available Not Available Not Available Pneumovax -23 25 mcg/0.5 mL injection syringe inject 0.5 millilit er intramus cularly 05/06 completed Not Available Not Available Not Available nicotine (polacril ex) 4 mg buccal lozenge take 1 tablet by mouth every 2 hours 04/29 completed Not Available Not Available Not Available diltiazem ER 240 mg tablet,ex tended release 24 hr Take 1 tablet every day by oral route. 2014 active Not Available Not Available Not Avai lable diltiazem ER 300 mg tablet,ex tended release 24 hr active Not Available Not Available Not Available olmesarta n 40 mg-hydroc hlorothia zide 12.5 mg tablet Take 1 tablet every day by oral route. 11/13 completed tkes 25 mg HCT Not Available Not Available Not Available olmesarta n 40 mg-hydroc hlorothia zide 25 mg tablet Pt taking irbesart an/HCTZ, please D/C olmesart an/hctz active does not take 06/15/24 KRB Not Available Not Available Not Available nitrofura ntoin monohydra te/macroc rystals 100 mg capsule TAKE 1 CAPSULE BY MOUTH EVERY 12 HOURS FOR 5 DAYS 06/15 completed Not Available Not Available Not Available calcium citrate 250 mg 2 x daily 11/13 completed has not been taking Not Available Not Available Not Available Lidoderm active Not Available Not Avai lable Not Available varenicli ne tartrate 1 mg tablet TAKE 1/2 TABLET BY MOUTH EVERY MORNING X3 DAYS THEN TAKE 1/2 TWICE DAILY X3 DAYS THEN TAKE 1 IN AM AND 1/2 IN PM X3 DAYS THEN TAKE 1 TWICE DAILY active does not take 06/15/24 KRB Not Available Not Available Not Available calcium 250 mg (as citrate) tablet 250mg by mouth 2x/d 10/29 completed Not Available Not Available Not Available cholecalc iferol (vitamin D3) 50 mcg (2,000 unit) capsule TAKE 1 CAPSULE BY MOUTH DAILY active Not Available Not Available No t Available cholecalc iferol (vitamin D3) 50 mcg (2,000 unit) tablet TAKE 2 TABLETS BY MOUTH EVERY DAY 06/14 completed Not Available Not Available Not Available calcium 315 mg (as citrate)- vitamin D3 6.25 mcg (250 unit) tablet TAKE 1 TAB BY MOUTH TWICE A DAY 01/19 completed not using 0 -sk Not Available Not Available Not Available GaviLyte- G 236 gram-22.7 4 gram-6.74 gram-5.86 gram oral solution MIX AND DRINK DIRECTED active has not had colo yet 06/15/24 KRB Not Available Not Available Not Available Prevnar 13 (PF) 0.5 mL intramusc ular syringe inject 0.5 millilit er intramus cularly 02/08 completed Not Available Not Available Not Available Citracal- D3 Slow Release 600 mg-12.5 mcg (500 unit) tablet,ex tend. rel Take 1 tablet twice a day by oral route. 03/11 completed Not Available Not Available Not Available Chantix Starting Month Box 0.5 mg (11)-1 mg (42) tablets in dose pack TAKE DIRECTED ON PACKAGE 02/08 completed Not Available Not Available Not Available Combivent Respimat 20 mcg-100 mcg/actua tion solution for inhalatio n Inhale 1 puff 4 times a day by inhalati on route. active Not Available Not Available No t Available ergocalci ferol (vitamin D2) 50 mcg (2,000 unit) tablet TAKE 1 TABLET BY MOUTH EVERY DAY 09/11 completed Not Available Not Available Not Available Fluad 65yr up(PF)45 mcg(15 mcgx3)/0. 5 mL intramusc ular syringe inject 0.5 millilit er intramus cularly 02/08 completed Not Available Not Available Not Available Fluad 65yr up(PF)45 mcg(15 mcgx3)/0. 5 mL intramusc ular syringe inject 0.5 millilit er intramus cularly 05/06 completed Not Available Not Available Not Available Shingrix (PF) 50 mcg/0.5 mL intramusc ular suspensio n, kit 12/16 completed Not Available Not Available Not Available Fluad 2017-19 65yr up(PF)45 mcg(15 mcgx3)/0. 5 mL intramusc ular syringe inject 0.5 millilit er intramus cularly 11/13 completed Not Available Not Available Not Available Fluzone High-Dose 2019-20 (PF) 180 mcg/0.5 mL intramusc ular syringe inject 0.5 millilit ers intramus cularly 12/16 completed Not Available Not Available Not Available Fluzone High-Dose Quad 2019- (PF) 240 mcg/0.7 mL IM syringe ADM 0.7ML IM UTD 02/24 completed In chart already Not Available Not Available Not Available Vitals Date Recorded Body height Provider Name an d Address Organization Details Last Updated DateTime 11/13/2023 168.91 cm Amy Bentley [facility] 11/13/2023 11:30:54 Date Recorded Body mass index (BMI) Body weight Provider Name and Address Organization Details Last Updated DateTime 11/13/2023 37.9 kg/m2 123274.7 g Amy Bentley [facility] 11/13/2023 11:30:48 Date Recorded Heart rate Provider Name an d Address Organization Details Last Updated DateTime 11/13/2023 81 /min Amy Bentley [facility] 11/13/2023 11:39:34 Date Recorded Body height Provider Name an d Address Organization Details Last Updated DateTime 11/19/2023 168.91 cm Flora Quijano [facility] 11/19/2023 09:25:45 Date Recorded Heart rate Provider Name an d Address Organization Details Last Updated DateTime 11/19/2023 80 /min Flora Quijano [facility] 11/19/2023 09:27:48 Date Recorded Body height Provider Name an d Address Organization Details Last Updated DateTime 04/23/2024 168.91 cm Haley Sharma [facility] 04/23/2024 11:24:41 Date Recorded Body height Provider Name an d Address Organization Details Last Updated DateTime 05/15/2024 168.91 cm [facility] 05/15/2024 13:48:10 Date Recorded Heart rate Provider Name an d Address Organization Details Last Updated DateTime 05/15/2024 86 /min [facility] 05/15/2024 13:56:59 Date Recorded Body temperature Provider Name a nd Address Organization Details Last Updated DateTime 05/15/2024 99 [degF] ADARSH DANII , [facility] [address] [place], [address] 05/15/2024 15:51:00 Date Recorded Body height Provider Name an d Address Organization Details Last Updated DateTime 06/15/2024 168[facility] 11:36:26 Date Recorded Body mass index (BMI) Body weight Provider Name and Address Organization Details Last Updated DateTime 06/15/2024 38.8 kg/m2 951473.54 [facility] 11:36:45 Date Recorded Heart rate Provider Name an d Address Organization Details Last Updated DateTime 06/15/2024 88 /[facility] 11:44:45 Date Recorded Systolic blood pressure Diastolic blood pressure Provider Name and Address Organization Details Last Updated DateTime 11/13/2023 97 mm[Hg] 69 mm[Hg] Amy Bentley LPN [facility] 11/13/2023 11:39:29 Date Recorded Systolic blood pressure Diastolic blood pressure Provider Name and Address Organization Details Last Updated DateTime 11/19/2023 114 mm[Hg] 78 mm[Hg] Flora Quijano [facility] 11/19/2023 09:28:48 Date Recorded Systolic blood pressure Diastolic blood pressure Provider Name and Address Organization Details Last Updated DateTime 04/23/2024 180 mm[Hg] 148 mm[Hg] Haley Sharma [facility] 04/23/2024 11:34:08 Date Recorded Systolic blood pressure Diastolic blood pressure Provider Name and Address Organization Details Last Updated DateTime 04/23/2024 180 mm[Hg] 92 mm[Hg] Coreen Franks [facility] 04/23/2024 12:07:54 Date Recorded Systolic blood pressure Diastolic blood pressure Provider Name and Address Organization Details Last Updated DateTime 04/23/2024 168 mm[Hg] 90 mm[Hg] Chhaya Sosa, HYDROGRAPHIC SURVEYOR [address] [place] [address], [phone], [facility] 04/23/2024 13:41:34 Date Recorded Systolic blood pressure Diastolic blood pressure Provider Name and Address Organization Details Last Updated DateTime 05/06/2024 127 mm[Hg] 68 mm[Hg] Margie [facility] 05/06/2024 16:02:42 Date Recorded Systolic blood pressure Diastolic blood pressure Provider Name and Address Organization Details Last Updated DateTime 05/15/2024 105 mm[Hg] 68 mm[Hg] Margie GiraldoIrma [facility] 05/15/2024 13:56:54 Date Recorded Systolic blood pressure Diastolic blood pressure Provider Name and Address Organization Details Last Updated DateTime 06/15/2024 120 mm[Hg] 74 mm[Hg] Sera Livingston [facility] 06/15/2024 11:46:10 Social History Question Answer Notes LastModified by Organizat ion Details LastModified Time Tobacco Smoking Status Current Every Day Smoker smokes less 1/2 ppd11-1- --23 less then 1/2 pack a day 1-3-24 6 cig a day COLBY Day, [facility] 11/13/2023 11:37:21 Do You Have An Advance Directive? Yes Daughter Magno Castellon [phone] Information not available 03/08/2015 What Is Your Level Of Alcohol Consumption? None 04/12/17 Information not available 04/12/2017 What Is Your Level Of Caffeine Consumption? Moderate 2 Cups A Day Information not available 09/29/2021 What Type Of Diet Are You Following? REGULAR [email or web address] Information not available 09/06/2014 Which Illicit Or Recreational Drugs Have You Used? None 04/12/17 Information not available 04/12/2017 Education 12 [email or web address] Information no t available 09/06/2014 What Is Your Occupation? Disabled 2000 Due To Knee Arthritis Information not available 09/06/2014 Do You Use Insect Repellent Routinely? No Information not available 09/29/2021 Live Alone Or With Others? Alone [email or web address] Information not available 09/06/2014 Does The Patient Have Difficulty Speaking Samoan? No [email or web address] Information not available 09/06/2014 Does The Patient Have Difficulty Reading Samoan? No [email or web address] Information not available 09/06/2014 Patient Has Health Care Proxy Signed And In Chart Yes Daughter Magno, Copy In Chart [email or web address] Information not available 09/06/2014 MOLST Form Signed And In Chart 02/08/2023 Information not available 03/05/2023 CCM Consent Discussion 03/12/2023 Information not available 03/14/2023 Marital Status [email or web address] Informatio n not available 09/06/2014 Mosquito Repellent Used Routinely No [email or web address] Information not available 09/06/2014 What Was The Date Of Your Most Recent Tobacco Screening? 06/15/2024 Information not available 06/15/2024 How Many Children Do You Have? 7 1972, 1975, 1976, 1976 (adopted [place]), 1978, 1986, 1986. 15 Grandchildre n, 6 Gr Grand, [address] Information not available 09/07/2021 What Is Your Current Pack Years? [email or web address] Information not available 03/09/2016 What Is Your Relationship Status? Information not available 09/29/2021 Do You Use Your Seat Belt Or Car Seat Routinely? Yes Information not available 09/29/2021 Seat Belts Used Routinely Yes [email or web address] Information not available 09/06/2014 Are You Sexually Active? No [email or web address] Information not available 09/06/2014 Smoke Alarm In Home Yes [email or web address] Information not available 09/06/2014 Do You Have Smoke And Carbon Monoxide Detectors In Your Home? Yes Information not available 09/29/2021 At What Age Did You Start Smoking Tobacco? 16 Information not available 09/06/2014 Are You Passively Exposed To Smoke? Yes Information not available 09/29/2021 How Much Tobacco Do You Smoke? 0.5 PPD [email or web address] Information not available 05/28/2022 General Stress Level Medium [email or web address] Information not available 09/06/2014 Do You Use Sunscreen Routinely? No [email or web address] Information not available 09/06/2014 Do You Or Have You Ever Used Any Other Forms Of Tobacco Or Nicotine? No Information not available 06/15/2024 Sex: Unknown Functional Status Question Answer Note LastModified by Organization D etails LastModified Time What is your exercise level? None Information not available 09/29/2021 Mental Status None recorded. Family History Relationship Description Onset Age of this Age Resolved Age Notes LastModified by Organization Details LastModified Time Brother Myocardial infarction 65 Not available 09/06 14:22:23 Brother Heart disease 65 Not available 2013 14:22:23 Brother Malignant tumor of lung 60 in retirement Not available 09/06/2014 14:22:23 Brother Motor vehicle accident victim 21 Not available 2013 14:22:23 Sister Chronic back pain Not available 2013 14:22:23 Mother Malignant tumor of lung 82 Not available 2013 14:22:23 Mother Diabetes mellitus Not available 2013 14:22:23 Mother Disorder of thyroid gland Not available 2013 14:22:23 Mother Hypertensive disorder Not available 2013 14:22:23 Mother Tuberculosis mom at 22 - d 2004 Not available 11/19/2023 09:50:48 Mother Osteoporosis Not availab le 11/19/2023 09:49:54 Father Carcinoma of prostate d prosta te cancer in 80's Not available 11/19/2023 09:51:11 Notes:4 brot 2 sisters a/w Medical History Condition Response Thyroid Disease Y Hyperlipidemia Y RESPIRATORY Y Osteopenia Y Hypertension Y Depression Y COPD Y Gynecological HistoryNo gynecological history recorded. Obstetrics History GPAL:G 0 P 0 0 0 0 Immunizations Vaccine Type Date Status Note Provider Nam e and Address Organization Details Recorded Time Pneumococcal conjugate PCV 13 6 completed Not Available [facility] 11/28/2019 02:29:50 influenza, unspecified formulation 4 completed Not Available [facility] 02/07/2023 18:15:23 pneumococcal polysaccharide PPV23 2 completed Not Available [facility] 02/07/2023 18:15:23 influenza, unspecified formulation 2 completed Not Available [facility] 02/07/2023 18:15:23 influenza, unspecified formulation 3 completed Not Available [facility] 02/07/2023 18:15:23 zoster live 2 completed Not Available [facility] 02/07/2023 18:15:23 influenza, unspecified formulation 5 completed Not Available [facility] 02/07/2023 18:15:23 Tdap 5 completed Not Available [facility] 02/07/2023 18:15:23 Pneumococcal conjugate PCV 13 6 completed Not Available [facility] 02/07/2023 18:15:23 influenza, unspecified formulation 6 completed Not Available [facility] 02/07/2023 18:15:23 pneumococcal polysaccharide PPV23 7 completed Not Available [facility] 02/07/2023 18:15:23 influenza, unspecified formulation 7 completed Not Available [facility] 02/07/2023 18:15:23 influenza, unspecified formulation 8 completed Not Available [facility] 02/07/2023 18:15:23 Influenza, split virus, quadrivalent, preservative 9 completed Not Available [facility] 02/07/2023 18:15:23 zoster recombinant 9 completed Not Available [facility] 02/07/2023 18:15:23 Influenza, split virus, quadrivalent, preservative 0 completed Not Available [facility] 02/07/2023 18:15:23 Influenza, high-dose, quadrivalent, PF 2 completed NANDINI Abdullahi [address] [place] [address], [phone], [facility] 08/13/2022 14:53:00 COVID-19, mRNA, LNP-S, PF, 30 mcg/0.3 mL dose 1 completed Not Available [facility] 02/07/2023 18:15:23 COVID-19, mRNA, LNP-S, PF, 30 mcg/0.3 mL dose 1 completed Not Available [facility] 02/07/2023 18:15:23 Influenza, high-dose, quadrivalent, PF 3 completed Jude Snowden MD [address] [place], [address], [facility] 07/31/2023 17:03:12 Influenza, high-dose, quadrivalent, PF 1 completed Not Available [facility] 02/07/2023 18:15:23 Past Encounters Encounter ID Performer Location Encounter Start Date Encounter Closed Date Diagnosis/Indication Diagnosis SNOMED-CT Code Diagnosis ICD10 Code Diagnosis Note [id number] FP, [facility], OFFICE [address] [place] [phone] 6 09/06/2014 13:00:24 09/06/2014 14:33:47 Hypertensive disorder 88759763 Tobacco user 002047921 Chronic ob structive pulmonary disease 66508935 Costal chondritis 48914461 [id number] Jolly Baumann LPN FP, [facility], OFFICE [address] [place] [address] 6 09/27/2014 11:04:03 09/27/2014 11:58:24 Hypertensive disorder 79678198 Shoulder pain 51391658 [id number] Nelly Burnette CMA FP, [facility], OFFICE [address] [place] [phone] 6 10/11/2014 11:22:07 10/11/2014 13:51:32 Hypertensive disorder 33777164 Tobacco user 292779687 Shoulder pain 77198894 [id number] Eunice Short NP FP, [facility], OFFICE [address] [place] [address] [phone] 6 11/01/2014 10:59:51 11/01/2014 11:41:21 Hypertensive disorder 82241219 Shoulder pain 05576838 Tobacco user 703523716 [id number] Viviane Kebede CMA FP, [facility], OFFICE [address] [place] [address] [phone] 6 12/06/2014 09:58:29 12/06/2014 10:57:34 Hypertensive disorder 59844693 Morbid obesity 609979338 Tobacco user 014337204 Chronic ob structive pulmonary disease 22274876 [id number] Eunice Short NP FP, [facility], OFFICE [address] [place] [address] 0[address]05[address]201 6 01/04/2015 13:51:17 01/04/2015 15:24:56 Hypertensive disorder 57415509 Tobacco user 809504487 Shoulder pain 87916703 [id number] Jolly Baumann LPN FP, [facility], OFFICE [address] [place] [address] [phone] 6 02/01/2015 11:29:20 02/01/2015 12:34:46 Benign essential hypertension 6100749 Blood pressure at goal Tobacco user 900648876 Major depr essive disorder 686619924 Morbid obesity 547189000 [id number] Graciela BREAUX, [facility], OFFICE [address] [place] [address] [phone] 6 03/07/2015 14:33:45 03/07/2015 15:38:53 Adult health examination 036493830 see Risk Assessment and Lifestyle Change Counseling section above Counseling 798693105 Administra tion of diphtheria, pertussis, and tetanus vaccine 528831158 Tobacco user 654318832 Shoulder pain 85028142 Administra tion of bacterial and viral vaccine 119205171 Morbid obesity 947324341 Major depr essive disorder 822945659 Hyperlipidemia 28621867 Lipids in normal range, but CVD risk 25% due to smoking and HTN. In addition is obese and sedentary lifestyle increasing risk further. Therefore could benefit from statin therapy. [id number] Eunice Short NP FP, [facility], OFFICE [address] [place] [address] [phone] 6 07/28/2015 10:37:43 07/28/2015 11:29:31 Lifestyle 007365369 Tobacco user 245678785 Anxiety 11358954 [id number] Eunice Short NP FP, [facility], OFFICE [address] [place] [address] [phone] 6 09/07/2015 13:59:43 09/07/2015 14:45:35 Chronic obstructive pulmonary disease 32019447 J44.9 [id number] YAMILETH Christianson, [facility], OFFICE [address] [place] [address] [phone] 6 09/09/2015 14:41:26 09/09/2015 15:19:44 Benign essential hypertension 4874644 I10 Blood pressure at goal Mixed hyperlipidemia 267 764680 E78.2 Continue to work on diet and exercise as discussed Tobacco user 708504818 Z 72.0 Chronic ob structive pulmonary disease 88059039 J44.9 [id number] YAMILETH Christianson, [facility], OFFICE [address] [place] [address] [phone] 6 03/09/2016 10:55:03 03/09/2016 12:23:53 Morbid obesity 773146761 E66.01 Major depr essive disorder 825144435 F32.9 Chronic ob structive pulmonary disease 95979818 J44.9 Adult [facility] examination 761134241 Z00.00 see Risk Assessment and Lifestyle Change Counseling section above Counseling 309419001 Z71 .9 Mixed hyperlipidemia 267 398453 E78.2 Cholestero l is at goal Continue to work on diet and exercise as discussed Nicotine dependence 5629 4008 Z87.891 Tobacco user 833159885 Z 72.0 Hyperlipidemia 22369814 E78.5 Active or passive immunization 064087051 Z23 Unexplaine d weight loss 145739921 R63.4 [id number] YAMILETH Christianson, [facility], OFFICE [address] [place] [address] [phone] 6 03/15/2016 15:00:37 03/15/2016 15:57:06 Benign essential hypertension 2248311 I10 Morbid obesity 606017018 E66.01 Dyspnea 302369716 R06.00 Tobacco user 865519766 Z 72.0 [id number] YAMILETH Christianson, [facility], OFFICE [address] [place] [address] 68306-911 6 04/26/2016 11:27:30 04/26/2016 12:35:10 Acute upper respiratory infection 24280104 J06.9 Educated patient that URI is a viral illness of the upper airways. It is not bacterial and does not benefit from antibiotic s. Average duration of URI is 7-10 days but in a recent trial, treatment at 7-10 days of illness with antibiotic s, intranasal steroids, or placebo did not alter natural history at 3 weeks. Recommende d symptomati c treatments including NSAIDS, semi-uprig ht sleep position, antihistam suzanne at HS, limited course of nasal sympathomi metics and/or cough syrups, and nasal saline rinses with soft squeeze bottle or Neti pot. Return for fevers > 101 for 3 days, worsening sinus pain, or failure to resolve in 2-4 weeks. Acute bronchitis 6450622 2 J20.9 [id number] Eunice Short NP FP, [facility], OFFICE [address] [place] [address] [phone] 6 06/08/2016 10:25:28 06/08/2016 11:14:21 Benign essential hypertension 2087496 I10 Blood pressure at goal Cigarette smoker 0713343 7 F17.210 Tobacco user 674327083 Z 72.0 Major depr essive disorder 133083007 F32.9 Osteopenia 957141672 M85 .80 [id number] Paige Mccarty, PT Physical Therapy, [address] [address] 06/22/2016 15:00:50 06/25/2016 07:43:41 Knee pain 12641588 M25.569 Low back pain 255861961 M54.5 Abnormal gait 65251557 R 26.9 [id number] Eunice Short NP FP, [facility], OFFICE [address] [place] [address] [phone] 6 07/06/2016 10:36:56 07/06/2016 11:12:26 Tobacco user 265093697 Z72.0 Cigarette smoker 4416658 7 F17.210 hopefully PA hattie Rai will be approved Major depr essive disorder 895412022 F32.9 stable on sertraline Benign ess ential hypertension 4187914 I10 Blood pressure not at goal. Resume Benicar HCT and FU in 4-6 wks to recheck. Abdominal pain 49259645 R10.9 [id number] Nelly Burnette CMA FP, [facility], OFFICE [address] [place] [address] [id number] 6 08/07/2016 15:32:02 08/07/2016 16:51:27 Benign essential hypertension 2831691 I10 Blood pressure at goal, continue current meds. on 3 agents. Cigarette smoker 8178730 7 F17.210 Plans to start the Chantx next month Tobacco user 397306674 Z 72.0 Urinary tr act infectious disease 94309221 N39.0 Patient instructed to push fluids, to follow up for persistent or worsening symptoms or fever or back pain. [id number] Eunice Short NP FP, [facility], OFFICE [address] [place] [address] 96911-719 6 09/10/2016 16:29:26 09/10/2016 17:04:55 Shoulder pain 72623440 M25.512 Benign ess ential hypertension 8523721 I10 Blood pressure at goal Tobacco user 483510310 Z 72.0 Abdominal pain 84876943 R10.9 FU GI as planned. [id number] Eunice Short NP FP, [facility], OFFICE [address] [place] [address] [phone] 6 12/25/2016 16:04:41 12/26/2016 12:46:08 Cigarette smoker 78910635 F17.210 Tobacco user 148071344 Z 72.0 Multifacto rial gait problem 179092755 R26.89 Multiple renal cysts 253 463760 N28.1 Abdominal aortic aneurysm without rupture 07569814 I71.4 [id number] Paige Mccarty, PT Physical Therapy, [address] [address] 6 01/01/2017 09:45:00 01/03/2017 08:02:33 Knee pain 89951587 M25.742 [id number] KIMBERLYN Ramos FP, [facility], OFFICE [address] [place] [address] 50211-645 6 02/08/2017 16:21:33 02/11/2017 10:05:50 Urinary tract infectious disease 56609941 N39.0 -Bactrim as directed-c ulture pending-fl uids-follo w up if no improvemen t in 3 days-prope r whipping technique- cotton underwear Cigarette smoker 6216835 7 F17.210 -start using the patches-gu ms as needed Tobacco user 852186282 Z 72.0 [id number] Paige Mccarty, PT Physical Therapy, [address] [address] 6 02/18/2017 17:06:31 02/19/2017 09:47:16 Knee pain 71639931 M25.569 Low back pain 689918804 M54.5 Abnormal gait 33705982 R 26.9 [id number] Eunice Short NP FP, [facility], OFFICE [address] [place] [address] [phone] 6 03/11/2017 09:17:31 03/11/2017 10:05:00 Adult health examination 592403274 Z00.00 see Risk Assessment and Lifestyle Change Counseling section above Counseling 169192122 Z71 .9 Cigarette smoker 2312994 7 F17.210 Tobacco user 014920499 Z 72.0 Benign ess ential hypertension 3951104 I10 Blood pressure NOT at goal. Mixed hyperlipidemia 267 869036 E78.2 continue atorvastat in. Primary hyperparathyroidism 96054934 E21.0 [id number] Paige Mccarty, PT Physical Therapy, [address] [address] 6 03/12/2017 16:24:31 03/13/2017 07:11:43 Low back pain 662228975 M54.5 Knee pain 72497483 M25.5 69 Abnormal gait 78388312 R 26.9 [id number] YAMILETH Christianson, [facility], OFFICE [address] [place] [address] [phone] 6 03/25/2017 11:08:57 03/25/2017 11:56:01 Benign essential hypertension 3292460 I10 Blood pressure at goal Cigarette smoker 2405254 7 F17.210 Tobacco user 052011151 Z 72.0 [id number] Jude Snowden MD Endocr[facility], [address] [address] 6 04/12/2017 08:30:36 04/12/2017 09:23:12 Cigarette smoker 68696397 F17.210 Tobacco user 812110812 Z 72.0 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 Replace mouthpiece and twist the top and bottom so that markings do not line up. Clean mouthpiece regularly with soap and water Primary hyperparathyroidism 07574780 E21.0 -labs and bone density 11/28, follow up Dr. Snowden 12/29 Vitamin D deficiency 347 97638 E55.9 -calcium tabs 2 times daily by mouth 315 mg - 250units d [id number] Marily Brownlee MD , [facility], OFFICE [address] [place] [address] [phone] 6 04/29/2017 11:22:19 04/29/2017 12:49:35 Cigarette smoker 70028643 F17.210 Tobacco user 282484926 Z 72.0 Screening mammography 24 168023 Z12.31 Osteoarthr itis of knee 412109752 M17.0 Shoulder pain 96984424 M 25.828 [id number] Eunice Short NP , [facility], OFFICE [address] [place] [address] 6 05/16/2017 13:24:19 05/16/2017 15:09:41 Cigarette smoker 84352369 F17.210 Tobacco user 238254251 Z 72.0 Facial laceration 098287 008 S01.81XA Gastroesop hageal reflux disease 574063068 K21.9 Morbid obesity 114399855 E66.01 Knee pain 67557935 M25.5 69 Bilateral, worse on R. [id number] Wendy Hopson NP , [facility], OFFICE [address] [place] [address] 08/13/2017 11:37:38 08/13/2017 14:13:52 Urinary tract infectious disease 65870669 N39.0 Patient instructed to push fluids, to follow up for persistent or worsening symptoms or fever or back pain. Cigarette smoker 9872621 7 F17.210 not ready to quit. has patch at home and will consider starting it Tobacco user 555649520 Z 72.0 [id number] Eunice Short NP FP, [facility], OFFICE [address] [place] [address] 07016-621 6 09/27/2017 15:21:15 09/27/2017 16:18:53 Benign essential hypertension 2777817 I10 Blood pressure at goal Cigarette smoker 0899127 7 F17.210 Tobacco user 172077797 Z 72.0 Knee pain 29898429 M25.5 69 Bilateral, worse on R. Chronic ob structive pulmonary disease 63062519 J44.9 [id number] Eunice Short NP , [facility], OFFICE [address] [place] [address] 65654-610 6 05/06/2018 10:36:03 05/06/2018 11:50:31 Adult health examination 612104185 Z00.00 see Risk Assessment and Lifestyle Change Counseling section above Counseling 359837180 Z71 .9 Depression screening 171 224814 Z13.89 depression screening tool administer ed, entered into emr, scored and discussed, time greater than 7.5 minutes Advance di rective discussed with patient 513613686 Z71.89 Cigarette smoker 5765568 7 F17.210 Tobacco user 031671586 Z 72.0 Hyperlipidemia 72667444 E78.5 Benign ess ential hypertension 0629927 I10 Blood pressure at goal Primary hyperparathyroidism 20875884 E21.0 [id number] Eunice Short NP , [facility], OFFICE [address] [place] [address] 01362-296 6 11/13/2018 11:05:40 11/13/2018 11:44:52 Benign essential hypertension 7808134 I10 Blood pressure at goal Cigarette smoker 1293543 7 F17.210 Tobacco user 999521938 Z 72.0 Candidal intertrigo 2661 19281 B37.2 Chronic ob structive pulmonary disease 02499361 J44.9 Morbid obesity 881098253 E66.01 Primary hyperparathyroidism 13017487 E21.0 Major depr essive disorder 562977470 F32.9 stable on sertraline [id number] Jake Jimenez PA-C FP, [facility], OFFICE [address] [place] [address] [phone] 6 02/20/2019 10:16:21 02/20/2019 13:33:48 Cigarette smoker 12055170 F17.210 Discussed and encourage smoking cessation. Patient contemplat ing but not ready. Encourage follow up if needing assistance with this. Abdominal aortic aneurysm without rupture 08382540 I71.4 NO abdominal pain has had up to date imaging. Will contact us if any issues. Intramuscu lar contusion 969366065 T14.8XXA Refer to discussion section for complete summary of visit. [id number] Eunice Short NP , [facility], OFFICE [address] [place] [address] 6 06/04/2019 11:08:40 06/04/2019 12:13:47 Adult health examination 842218928 Z00.00 see Risk Assessment and Lifestyle Change Counseling section above Counseling 127748107 Z71 .9 Advance di rective discussed with patient 127278565 Z71.89 Mixed hyperlipidemia 267 015111 E78.2 continue atorvastat in. Cigarette smoker 9406416 7 F1.210 Tobacco user 147359082 Z 72.0 Urinary tr act infectious disease 43782309 N39.0 Patient instructed to push fluids, to follow up for persistent or worsening symptoms or fever or back pain. Screening mammography 24 498122 Z12.31 Benign ess ential hypertension 9811079 I10 Blood pressure at goal [id number] Vicky Avendaño PA-C , [facility], OFF[address] [place] [address] 6 06/19/2019 17:07:14 06/24/2019 15:07:53 Urinary tract infectious disease 16974827 N39.0 - starting new antibiotic and sending for culture, minimal improvemen t with macrobid- Patient instructed to push fluids, to follow up for persistent or worsening symptoms or fever or back pain. Cigarette smoker 8676799 7 F17.210 - not ready to quit cigars Tobacco user 438911763 Z 72.0 [id number] Eunice Short NP , [facility], OFF[address] [place] [address] 12/16/2019 15:29:54 12/18/2019 14:21:58 Essential hypertension 87101117 I10 Mixed hyperlipidemia 267 638151 E78.2 Cholestero l is at goal Cholestero l is not at goal Continue to work on diet and exercise as discussed Cigarette smoker 4598951 7 F17.210 Tobacco user 528186926 Z 72.0 Poor balance 850688893 R 27.8 Osteoporosis 68899314 M8 1.0 BMD test 05/2018 Chronic ob structive pulmonary disease 97556540 J44.9 Morbid obesity 646824701 E66.01 Primary hyperparathyroidism 93879914 E21.0 [id number] Eunice Short NP , [facility], OFFICE [address] [place] [address] 06/09/2020 11:18:53 06/10/2020 15:13:48 Major depressive disorder 270129546 F32.9 stable on sertraline , see PHQ9 Adult heal th examination 201216452 Z00.00 see Risk Assessment and Lifestyle Change Counseling section above Counseling 397658844 Z71 .9 including cardiovasc ular risk reduction counseling Depression screening 171 840813 Z13.89 depression screening tool administer ed, entered into emr, scored and discussed, time greater than 7.5 minutes. Negative screening reviewed with patient. Screening for alcohol abuse 321891482 Z13.39 no alcohol at all Benign ess ential hypertension 5643118 I10 Hyperlipidemia 19594413 E78.5 Anxiety 33510503 F41.9 Essential hypertension 50883241 I10 Mixed hyperlipidemia 267 251150 E78.2 on atorvastat in Cigarette smoker 1731354 7 F17.210 Tobacco user 941778442 Z 72.0 Tinea corporis 52893447 B35.4 [id number] Pino Ureña MD , [facility], OFFICE [address] [place] [phone] 6 04/18/2020 14:44:16 04/19/2020 09:35:28 Urinary tract infectious disease 06865015 N39.0 Patient instructed to push fluids, to follow up for persistent or worsening symptoms or fever or back pain. Use the antibiotic . [id number] Vicky Avendaño PA-C , [facility], OFFICE [address] [place] [phone] 6 10/21/2020 11:57:39 10/21/2020 15:23:14 Cigarette smoker 93472726 F17.210 -intereste d in quitting -limited success in the past with patches and gum/lozeng e -recommend nicotrol inhaler, patient expresses interest, advised about cost/unkno wn insurance coverage Injury of hand 637728960 S69.91XA -acute injury of right hand secondary to fall -will xray -advised RICE, NSAIDS/tyl enol for pain relief Injury of knee 072917275 S89.92XA -acute injury of left knee secondary to fall -will xray -advised RICE, NSAIDs/tyl enol for pain relief Injury of nose 42189740 S09.92XA -acute injury of nose secondary to fall -low suspicion for fracture of nasal bones, patient reports structure of nose does not appear changed -will xray -advised ice, NSAIDs/tyl enol for pain relief -return precaution s reviewed [id number] Vicky Avendaño PA-C FP, [facility], OFFICE [address] [place] [address] 10/26/2020 12:05:06 10/27/2020 15:44:13 Injury of hand 728357410 S69.91XA -acute injury of right hand secondary to fall, subsequent encounter -x-ray showed no evidence of fracture, reviewed with pt -advised RICE and tylenol for pain relief Injury of knee 877828397 S89.92XA -acute injury of left knee secondary to fall, subsequent encounter -x-ray showed no evidence of fracture, reviewed with pt -advised RICE and tylenol for pain relief Injury of nose 53883997 S09.92XA -acute injury of nose secondary to fall, subsequent encounter -x-ray showed non-displa florencia fracture, no cosmetic changes, reviewed with pt -advised ice and tylenol for pain relief -return precaution s reviewed [id number] Eunice Short NP FP, [facility], OFFICE [address] [place] [address] 01/19/2021 10:45:26 01/20/2021 14:27:22 Benign essential hypertension 4244710 I10 Morbid obesity 633790599 E66.01 Cigarette smoker 3557992 7 F17.210 Tobacco user 261334164 Z 72.0 Primary hyperparathyroidism 04445682 E21.0 Will check calcium q 6months. Chronic ob structive pulmonary disease 19729489 J44.9 At high risk for fall 45 22972782 06640519 Z91.89 Has fall alarm, power chair, wheelchair for in home use and walker. [id number] Wendy Hopson NP , [facility], OFFICE [address] [place] [phone] 02/24/2021 14:22:54 02/27/2021 15:49:47 Backache 735279748 M54.9 left sided back ache x5 days. denies hx of kidney stones. no dysuria. recommend ice 20-30 minutes every few hours, tylenol as needed (max 3000mg/day ), gentle range of motion. will schedule urine testing. will need in office visit to eval if not improving or symptoms worsen. very difficult to understand or see what is going on in this case over the phone. no distress or fever Cigarette smoker 1158194 7 F17.210 not ready to quit. has patch at home and will consider starting it Tobacco user 789486778 Z 72.0 [id number] Chhaya Sosa NP , [facility], OFFICE [address] [place] [phone] 6 03/02/2021 17:10:00 03/06/2021 16:06:09 Tobacco user 117881724 Z72.0 Abdominal pain 35912439 R10.9 -reassuran ce as the pain seems to be musculoske letal-tyle nol 1000 mg every 8 hours as needed-alexia l with any worsening pain or if you want to do PT [id number] ARLENE MENENDEZ MD , [facility], OFFICE [address] [place] [phone] 6 09/29/2021 13:09:22 09/29/2021 14:07:17 Adult health examination 965225096 Z00.00 see Risk Assessment and Lifestyle Change Counseling section above Counseling 938093920 Z71 .9 including cardiovasc ular risk reduction counseling Depression screening 171 200203 Z13.31 depression screening tool administer ed, entered into emr, scored and discussed, time greater than 7.5 minutes Screening for alcohol abuse 472182221 Z13.39 no alcohol at all Anxiety 89901291 F41.9 controlled , continue meds Benign ess ential hypertension 9821625 I10 Chronic ob structive pulmonary disease 00797142 J44.9 Discussed smoking cessation x 3 m., not ready to quit at this time Morbid obesity 300769632 E66.01 discussed portion control. pt not able to exercise meaningful ly due to shortness of breath and knee pain with weight bearing. Osteoporosis 65234254 M8 1.0 BMD test 05/2018 - just had BMD couple of weeks ago at [place], awaiting results. Tobacco user 234740767 Z 72.0 see above Essential hypertension 55580867 I10 continue current regimen Mixed hyperlipidemia 267 461685 E78.2 Cholestero l is at [facility] to work on diet and exercise as discussed Cigarette smoker 7192049 7 F17.210 Major depr essive disorder 779287392 F32.0 Abdominal aortic aneurysm without rupture 72720102 I77.811 recheck abd aorta, small ectasia 3 cm on last US, I can't find CT results. [id number] Eunice Short NP , [facility], OFFICE [address] [place] [address] 09/07/2021 14:42:55 09/07/2021 15:50:48 Hyperlipidemia 68098830 E78.5 Essential hypertension 09440963 I10 Tobacco user 933480581 Z 72.0 > 30 pack yr history, Yrly LDCT screening for lung cancer - last done 10/2020 Primary hyperparathyroidism 28146132 E21.0 Will check calcium q 6months. Osteoporosis 09569097 M8 1.0 BMD test 05/2018 Chronic ob structive pulmonary disease 72286310 J44.9 Major depr essive disorder 996807221 F32.9 stable on sertraline , see PHQ9 Benign ess ential hypertension 6685819 I10 [id number] ARLENE MENENDEZ MD , [facility], OFFICE [address] [place] [address] 04/06/2022 14:18:57 04/06/2022 15:33:08 Morbid obesity 169594782 E66.01 discussed portion control. pt not able to exercise meaningful ly due to shortness of breath and knee pain with weight bearing.Di scussed Harley Behaviors for Weight Loss: - Track intake using food diary - may use In[employer] al or written journal - Measure out portion sizes - Be consistent with physical activity / make exercise a habit. Add weights or resistance training 2 times a week. - Plan ahead for challenges (packing lunches, looking up restaurant nutrition informatio n) - Include fiber, protein, and adequate water for fullness. - Eat slowly/eat mindfully - Lifestyle change v. fad diets / crash diets - Set SMART goals (Specific, Measurable , Achievable , Relevant, and Time-sensi tive) Primary hyperparathyroidism 08515603 E21.0 did not want to see endocrinol ogist, but since she has worsening osteoporos is, to reduce risk of fracture, I recommend seeing Dr. Snowden. She now agrees Major depr essive disorder 674998990 F32.0 controlled on sertraline Abdominal aortic aneurysm without rupture 02891632 I77.811 latest 09/2021 3.6 cm increased from 3 cm. Repeat now. Chronic ob structive pulmonary disease 07186491 J44.9 Discussed smoking cessation x 3 m., not ready to quit at this timecontin ue LDCT yearly at [facility] Essential hypertension 01068379 I10 continue current regimen Tobacco user 851280826 Z 72.0 see above Osteoporosis 56946979 M8 1.8 worsening. Check PTH and refer to endocrinol ogist [id number] NANDINI Abdullahi , [facility], OFF[address] [place] [address] 05/29/2022 17:36:30 05/31/2022 11:36:05 Urinary tract infectious disease 25063462 N39.0 - symptoms and POC UA consistent with UTI- culture sent- meds discussed including risks/bene fits and possible side effects, will treat with bactrim as this worked well for her last time- UTI education discussed including increasing fluids, avoidance of coffee and citrus foods/beve rages as these can contribute to bladder irritation , wiping front to back, voiding after intercours e- Call for worsening or persistent symptoms Increased frequency of urination 866778575 R35.0 Benign ess ential hypertension 3045170 I10 BP above goalencour aged to set up BP check once feeling better COVID-19 775250615 U07.1 pos 05/25, symptom onset 6 days agodiscuss ed no longer a candidate for paxlovid, given she's feeling better she's also deferred Mab infusion txcontinue OTC care [id number] NANDINI Abdullahi FP, [facility], OFF[address] [place] [address] 06/29/2022 14:08:51 06/29/2022 14:42:11 Tobacco user 458670952 Z72.0 1/2 ppd mini cigars, not interested in quitting at this time Benign ess ential hypertension 1905289 I10 BP above goalincrea se diltiazem to 240mg, continue olmesartan /HCTZ 40/25mgf/u in a couple weeks to reassess, encouraged home readings and logging in the interim Chronic ob structive pulmonary disease 36003042 J44.9 lungs CTA today, not using combivent often/does n't feel she needs to Morbid obesity 315995248 E66.01 limited exercise due to knee arthritisr eviewed healthy eating habits [id number] NANDINI Abdullahi FP, [facility], OFFICE [address] [place] [address] 08/13/2022 14:16:08 08/20/2022 15:26:04 Tobacco user 893485362 Z72.0 1/2 ppd mini cigars, not interested in quitting at this timecessat ion discussed and encouraged Active or passive immunization 746130574 Z23 will do flu vaccine today Benign ess ential hypertension 7968580 I10 BP still above goal though improved from last visitincre ase diltiazem to 300mg, continue olmesartan /HCTZ 40/25mgBP cuff sent to karlene to start home checksf/u in 1 month to reassess Morbid obesity 340546053 E66.01 limited exercise due to knee arthritisr eviewed healthy eating habits [id number] Chhaya Sosa NP FP, [facility], [address] [place] [address] 12/27/2022 13:31:55 12/27/2022 14:22:40 Adult health examination 288082464 Z00.00 Depression screening 171 013478 Z13.31 depression screening tool administer ed Screening for alcohol abuse 383451273 Z13.39 Alcohol use screening tool administer ed Essential hypertension 24261706 I10 After a discussion of treatment and medication options, which included considerat ion of the best practices in medicine, a medical plan was provided. The patient's opinions and concerns were included in this treatment plan and goal. 1. Discussed Blood Pressure goals. 2. BP GOAL is under 130/80. Pt is NOT at goal. Morbid obesity 798483282 E66.01 - -Work on healthy eating, weight loss, and exercise-C all if you want to see the nutritioni Major depr essive disorder 555687328 F32.0 -STABLE on meds Chronic ob structive pulmonary disease 79918243 J44.9 -stable on meds Tobacco user 135579971 Z 72.0 We discussed your smoking today for more than 3 minutes. Cigarette use is the leading cause of preventabl e disease, disability , and in the [place]. We talked about tools and medication s available to help you in smoking cessation. We discussed utilizing our smoking cessation assistant women's basketball coach and online resources. Counseled by member of primary health care team 910266823 Z71.9 Today we discussed ways to reduce your 10-year cardiovasc ular disease risk. Things that decrease risk for cardiovasc ular events include eating a diet high in fiber (fruits and vegetables ) and low in simple carbohydra rhett (bread, rice, pasta, alcohol, potatoes), decreasing processed foods, limiting juice and alcohol, limiting saturated fats (butter, ice cream, and cheeses), and adding regular daily activity. Having blood pressure that is <130/80. Having well controlled cholestero l (LDL and triglyceri jon) by eating a healthy diet and taking medication s when necessary. Managing daily stress with meditation or yoga. Depending on your other cardiovasc ular risks your practition er may recommend taking daily aspirin. Hypercalciuria 10966835 R82.994 -check labs [id number] Chhaya Sosa NP FP, [facility], OFFICE [address] [place] [address] 03/12/2023 16:01:01 03/18/2023 08:17:41 Pain of left breast 4877964029 N64.4 Tobacco user 148467913 Z 72.0 We discussed your smoking today for more than 3 minutes. Cigarette use is the leading cause of preventabl e disease, disability , and in the [place]. We talked about tools and medication s available to help you in smoking cessation. We discussed utilizing our smoking cessation assistant women's basketball coach and online resources. Your personal goal: declines Gastroesop hageal reflux disease 787936190 K21.9 restart meds and follow up in 1 month Benign ess ential hypertension 0602023 I10 After a discussion of treatment and medication options, which included considerat ion of the best practices in medicine, a medical plan was provided. The patient's opinions and concerns were included in this treatment plan and goal. 1. Discussed Blood Pressure goals.2. BP GOAL is under 130/80. Patient IS AT GOAL.3. Reviewed sodium, cardiovasc ular exercise, maintainin g appropriat e weight. Monitor BP at home. Call if BP is consistent ly over 150/90.4. Continue w/ medication discussed. Patient is in agreement w/ this plan. Call w/ any concerns.5 . Follow up in 1 months. Dysuria 98699762 R30.0 Atopic dermatitis 031081 01 L20.9 [id number] Chhaya Sosa NP FP, [facility], OFFICE [address] [place] [address] 05/02/2023 10:09:52 05/02/2023 10:58:36 Tobacco user 253556396 Z72.0 We discussed your smoking today for more than 3 minutes. Cigarette use is the leading cause of preventabl e disease, disability , and in the [place]. We talked about tools and medication s available to help you in smoking cessation. We discussed utilizing our smoking cessation assistant women's basketball coach and online resources. Active or passive immunization 653555611 Z23 shingles- reminded Screening for malignant neoplasm of colon 557287855 Z12.11 declines Dysuria 41617352 R30.0 Patient with urinary symptoms.U RAJ TO DO URINE AND SHE WILL TAKE HOME Tr Kaur send urine for culture.Di scussed supportive and preventive measures.P atient instructed to follow up if not better or with new symptoms. Pulmonary emphysema 8743 3001 J43.9 -Patient was validated and supported in ongoing smoking cessation Vitamin D deficiency 347 95062 E55.9 Hyperparathyroidism 6699 9008 E21.3 Pain of le ft knee joint 0405155261 33118 M25.891 [id number] YAMILETH Negro, [facility], OFFICE [address] [place] [address] 05/30/2023 11:53:26 05/30/2023 12:41:44 Active or passive immunization 651631407 Z23 shingles- reminded Screening for malignant neoplasm of colon 061774196 Z12.11 Referral for a DIRECT booked colonoscop y. This patient is a healthy ASA Class 1 or 2 patient (only mild systemic disease), or a STABLE, well controlled insulin dependent diabetic. They do not have serious cardiac disease ie MD/angiopl asty within 1 year, symptomati c CHF; renal failure with CKD 4 or 5; take Coumadin, Plavix, Aggrenox, etc. Tobacco user 989578434 Z 72.0 We discussed your smoking today for more than 3 minutes. Cigarette use is the leading cause of preventabl e disease, disability , and in the [place]. We talked about tools and medication s available to help you in smoking cessation. We discussed utilizing our smoking cessation assistant women's basketball coach and online resources. Your personal goal: start vareniclin e New medication was discussed today with patient including risks, benefits ,possible and expected side effects. Patient understand s and is willing to begin medication as prescribed . Vitamin D deficiency 347 55987 E55.9 Pulmonary emphysema 8743 3001 J43.9 -Patient was validated and supported in ongoing smoking cessation Cigarette smoker 8885531 7 F17.210 Benign ess ential hypertension 3612750 I10 After a discussion of treatment and medication options, which included considerat ion of the best practices in medicine, a medical plan was provided. The patient's opinions and concerns were included in this treatment plan and goal. 1. Discussed Blood Pressure goals.2. BP GOAL is under 130/80. Patient IS AT GOAL.3.Fol low up in 1 months for smoking. Abdominal aortic aneurysm 169720883 I71.40 [id number] Jude Snowden MD Endocrino logy, [facility] [address] [place] [address] 06/12/2023 14:52:56 06/12/2023 15:52:14 Cigarette smoker 35165838 F17.210 Tobacco user 110751230 Z 72.0 Tobacco de pendence syndrome 64291849 F17.290 -current 10cig/d-pl an to start vareniclin e, you are ready to set a date, but you will try this June Primary hyperparathyroidism 74702385 E21.0 -24h urine calcium creatinine while taking in 1000mg calcium daily Osteoporosis 96313561 M8 1.0 [id number] Pollo Castellon MD Sports Medicine, [facility] [address] [place] [address] 08/14/2023 13:35:19 08/21/2023 15:37:35 Tobacco user 594339639 Z72.0 Anabela and I did discuss smoking cessation today. He currently smokes one half pack per day and is not overly interested in quitting. She states she has oral medication at home she tries to use but states it only makes her want to smoke more. She often watches TV to distract herself. I reviewed with her the adverse effects of smoking on her musculoske letal system and encouraged her to continue working on smoking cessation. Greater than 3 minutes was spent performing tobacco cessation counseling today in the office. I've advised follow-up with patients PCP to continue to work on smoking cessation. Pain of le ft knee joint 3398491269 25415 M25.562 Anabela is a 72-year-ol d female with left knee pain due to underlying osteoarthr itis. I reviewed this diagnosis with her today as well as discussing further options for treatment. We discussed physical therapy, use of Tylenol or NSAIDs, corticoste roid injections , and potential surgery. She has done physical therapy in the past and did not feel it was helpful. Although she has been using Tylenol I do believe ibuprofen may try some additional benefit we discussed as needed use. Also discussed use of ice before bed to reduce inflammati on. I did offer her a corticoste roid injection today which she declined. We briefly discussed operative management which she does not wish to pursue. She states she was previously told that she had a high risk of infection. Anabela will continue with activities as tolerated and I am of course happy to see her back as needed for further care. [id number] Chhaya Sosa NP , [facility], OFFICE [address] [place] [address] 06/21/2023 09:17:58 06/25/2023 13:41:04 Tobacco user 559027083 Z72.0 We discussed your smoking today for more than 3 minutes. Cigarette use is the leading cause of preventabl e disease, disability , and in the [place]. We talked about tools and medication s available to help you in smoking cessation. We discussed utilizing our smoking cessation assistant women's basketball coach and online resources. Has chantix - but hasnt started. Recurrent urinary tract infection 960558181 N39.0 After a discussion of treatment and medication options, which included considerat ion of the best practices in medicine, a medical plan was provided. The patient's opinions and concerns were included in this treatment plan and goal. -Number to UROLOGIST given and patient instructed to schedule the appointmen t. Referral completed. -If this specialty office requires G to schedule the appointmen t the patient will call our office back and we will have the referrals department schedule it. -WILL CALL FOR ULTRASOUND AND REPEAT CULTURE TODAY -Will call with any new concerns or worsening symptoms. Major depr essive disorder 543695778 F32.0 -STABLE on meds [id number] NANDINI Abdullahi FP, [facility], OFFICE [address] [place] [address] 06/24/2023 17:15:42 06/26/2023 08:42:29 Tobacco user 515648877 Z72.0 We discussed your smoking today for more than 3 minutes. Cigarette use is the leading cause of preventabl e disease, disability , and in the [place]. We talked about tools and medication s available to help you in smoking cessation. We discussed utilizing our smoking cessation assistant women's basketball coach and online resources. Your personal goal: to quit! recently started oral vareniclin e to help - continue Active or passive immunization 141008194 Z23 Shingrix: had 1st dose Cigarette smoker 6938058 7 F17.210 reports she's in the LDCT program already Hypertensive disorder 38 277842 I10 BP at goal, continue current regimen Vaginal irritation 96243 6004 N89.8 unclear etiology but discussed suspect yeastdecli didier vaginal swab today, does not have active d/cwill try topical clotrimazo le externally to startcall if worsening/ not resolving Urinary tr act infectious disease 84413746 N39.0 finish abx as prescribed , f/u if not resolved after course [id number] Chhaya Sosa NP FP, [facility], OFFICE [address] [place] [address] 07/11/2023 11:37:45 07/12/2023 09:04:54 Tobacco user 217683996 Z72.0 We discussed your smoking today for more than 3 minutes. Cigarette use is the leading cause of preventabl e disease, disability , and in the [place]. We talked about tools and medication s available to help you in smoking cessation. We discussed utilizing our smoking cessation assistant women's basketball coach and online resources. Active or passive immunization 209774932 Z23 shingles- reminded Recurrent urinary tract infection 135067501 N39.0 After a discussion of treatment and medication options, which included considerat ion of the best practices in medicine, a medical plan was provided. The patient's opinions and concerns were included in this treatment plan and goal. -Number to UROLOGIST given and patient instructed to schedule the appointmen t. Referral completed. -If this specialty office requires [facility] to schedule the appointmen t the patient will call our office back and we will have the referrals department schedule it. -Will call with any new concerns or worsening symptoms. Pulmonary emphysema 8743 3001 J43.9 -Patient was validated and supported in ongoing smoking cessation Major depr essive disorder 778719462 F32.0 -STABLE on meds [id number] Jude Snowden MD Endocrino logy, [address] [address] 07/31/2023 12:55:36 07/31/2023 13:54:21 Osteoporosis 67658662 M81.0 Tobacco user 606858280 Z 72.0 Primary hyperparathyroidism 91747114 E21.0 -please stop olmesartan -hydrochlo rothiazide and repeat bp check with HYDROGRAPHIC SURVEYOR Ian in 2 to 4 weeks -after 1 week, reassess 24h urine calcium creatinine while taking in 1000mg calcium daily, 3 to 4 servings of dairy daily -hctz falsely lowers urine calcium Active or passive immunization 975928753 Z23 Cigarette smoker 8283662 7 F17.210 Tobacco de pendence syndrome 76553759 F17.290 -you smoke 1st thing in the morning-gr andson gets on nerves and is one reason you smoke-curr ent up 10cig/d-yo u tried vareniclin e 2 halves, then stopped due to grandson staying with you Essential hypertension 31566765 I10 -please stop olmesartan -hydrochlo rothiazide and repeat bp check with HYDROGRAPHIC SURVEYOR Ian in 2 to 4 weeks [id number] Jude Snowden MD Endocrino logy, [facility] [facility] [address] [place] [address] 09/11/2023 12:17:04 09/11/2023 14:13:05 Osteoporosis 20130953 M81.0 Primary hyperparathyroidism 64813030 E21.0 -please stop olmesartan -hydrochlo rothiazide , make sure you are off this, your pharmacy states you picked this up today -add calcium 250mg by mouth twice daily, yogurt/priya carlos 2x/d -reassess 24h urine calcium creatinine while taking in 1000mg calcium daily, 2 servings of dairy daily -hctz falsely lowers urine calcium Benign ess ential hypertension 9841432 I10 Tobacco user 767955028 Z 72.0 Cigarette smoker 3627404 7 F17.210 Tobacco de pendence syndrome 48117871 F17.290 -you smoke 1st thing in the morning-cu rrent up 6cig/d-you tried vareniclin e, then stopped due to wanting to smoke more-lozen ges make you gag-you sometimes get a craving to have a cig-you have other things on your mind Essential hypertension 08663422 I10 -please stop olmesartan -hydrochlo rothiazide [id number] Chhaya Sosa NP , [facility], OFFICE [address] [place] [phone] 09/20/2023 09:38:38 09/23/2023 09:04:52 Active or passive immunization 193600071 Z23 shingles- reminded Tobacco user 787956092 Z 72.0 We discussed your smoking today for more than 3 minutes. Cigarette use is the leading cause of preventabl e disease, disability , and in the [place]. We talked about tools and medication s available to help you in smoking cessation. We discussed utilizing our smoking cessation assistant women's basketball coach and online resources. Your personal goal: Morbid obesity 290426290 E66.01 - -Work on healthy eating, weight loss, and exercise-C all [facility] Chronic ob structive pulmonary disease 94802460 J44.9 -stable on meds [id number] Jude Snowden MD Endocrino logy, [facility] [address] [place] [address] 10/09/2023 13:53:57 10/09/2023 15:46:30 Osteoporosis 32265912 M81.0 Benign ess ential hypertension 3267033 I10 Primary hyperparathyroidism 62877521 E21.0 -please be off olmesartan -hydrochlo rothiazide , make sure you are off this, your pharmacy states you picked this up today - calcium 250mg by mouth twice daily, yogurt/priya carlos 2x/d -reassess 24h urine calcium creatinine while taking in 1000mg calcium daily, 2 servings of dairy daily -hctz falsely lowers urine calcium Tobacco user 018397221 Z 72.0 Cigarette smoker 7297873 7 F17.210 Tobacco de pendence syndrome 70194054 F17.290 -you smoke 1st thing in the morning-cu rrent up 5 to 6cig/d-you tried vareniclin e, then stopped due to wanting to smoke more-lozen ges make you gag-you sometimes get a craving to have a cig-you have other things on your mind Essential hypertension 85201551 I10 -please stop olmesartan -hydrochlo rothiazide prior to urine calcium testing, may restart after [id number] Jude Snowden MD Endocrino logy, [facility] [address] [place] [address] 11/13/2023 11:11:43 11/13/2023 12:54:44 Primary hyperparathyroidism 35864271 E21.0 -I suggest blood CASR (calcium sensing receptor) genetic testing, you decline -please consider a second opinion or genetic consult after reviewing with your primary provider -return as needed -stay on olmesartan -hydrochlo rothiazide -stop calcium supplement s -hctz falsely lowers urine calcium, but you did not take this during urine testing Osteoporosis 34020212 M8 1.0 Benign ess ential hypertension 0741596 I10 Tobacco user 992633384 Z 72.0 Cigarette smoker 0564550 7 F17.210 Tobacco de pendence syndrome 22305821 F17.290 -you smoke 1st thing in the morning-cu rrent up 6cig/d-you tried vareniclin e, then stopped due to wanting to smoke more-lozen ges make you gag-you sometimes get a craving to have a cig-you have other things on your mind Essential hypertension 29949936 I10 -continue olmesartan -hydrochlo rothiazide [id number] Chhaya Sosa NP FP, [facility], OFFICE [address] [place] [address] 11/19/2023 09:17:21 11/19/2023 10:08:31 Nicotine dependence 98885157 F17.200 We discussed your smoking/va ping today for more than 3 minutes. Cigarette/ pod use is the leading cause of preventabl e disease, disability , and in the [place]. We talked about tools and medication s available to help you in smoking/va ping cessation. We discussed utilizing our smoking cessation assistant women's basketball coach and online resources. Active or passive immunization 218151068 Z23 shingles- reminded Hyperlipidemia 07246114 E78.5 -check labs Prediabetes 381116034 R7 3.03 -stable Morbid obesity 942380590 E66.01 - -Work on healthy eating, weight loss, and exercise-C all if you want to see the nutritioni st Major depr essive disorder 077431925 F32.0 -STABLE on meds-follo w up in 4 months Chronic ob structive pulmonary disease 53050867 J44.9 -stable on meds-encou raged daily walking [id number] Chhaya Sosa NP FP, [facility], OFFICE [address] [place] [address] 04/23/2024 11:07:23 04/23/2024 12:36:32 Active or passive immunization 335008276 Z23 shingles- reminded Nicotine dependence 5629 4008 F17.200 We discussed your smoking/va ping today for more than 3 minutes.Sm oking tobacco is the leading cause of preventabl e disease, disability , and in the [place]. Inhaling aerosolize d nicotine is widely believed to be safer than combustibl e tobacco, but still exposes people to numerous harmful substances , heavy metals like lead, and cancer-cau sing agents. Nicotine is harmful to developing brains and can disrupt the formation of brain circuits that control attention, learning, and susceptibi lity to addiction. We talked about tools and medication s available to help you in smoking/va ping cessation. We discussed utilizing our smoking cessation assistant women's basketball coach and online resources. Your personal goal: Currently does not want to start smoking cessation. Increased frequency of urination 235033925 R35.0 Urinary frequency at night. unable to ambulate to bathroom at night. Will order urine culture to assess for infection. Urinary incontinence 165 928891 R32 Informed on kegel exercises, option of physical therapy.Di scussed use of urinary pads/under wear. Dilatation of aorta 2666 0001 I77.811 Benign ess ential hypertension 4736297 I10 After a discussion of treatment and medication options, which included considerat ion of the best practices in medicine, a medical plan was provided. The patient's opinions and concerns were included in this treatment plan and goal. 1. Discussed Blood Pressure goals.2. BP GOAL is under 130/80. Patient IS NOT AT GOAL.3.Fol low up in 2 months for wellness Chronic ob structive pulmonary disease 08333626 J44.9 -stable on meds-encou raged daily walking Abdominal aortic aneurysm 796862723 I71.40 -to get ultrasound Primary hyperparathyroidism 65247547 E21.0 -follow up w Dr Snowden as discussed todat Major depr essive disorder 680946027 F32.0 -STABLE on meds-follo w up in 2 months [id number] ADARSH FOY, KIMBERLYN , [facility], OFFICE [address] [place] [address] 05/15/2024 13:44:45 05/15/2024 15:28:47 Pyelonephritis 90754953 N12 Pt w L-sided flank pain, fatigue, malaise x 3 days. Noted to have low-grade fever, otherwise VSS. + CVA tenderness . Hx cholecyste ctomy. UA and urine cx reviewed from 04/23- + UTI, was treated w/ macrobid but didnt finish course. Given this and symptoms concern for complicate d UTi- pt unable to provide urine sample as not handicap accessible - will provide urine at home, given going into weekend will treat empiricall y. Advised to hydrate, Follow-up as needed- reviewed red flag s/sx and reasons to return to care- if no improvemen t in 24-48 hours and/or urine negative will need labs possible imaging to r/u other causes. Fracture of fibula 21991 007 S82.401A in wheelchair unable to get on and off toilet here [id number] Chhaya Sosa NP , [facility], OFFICE [address] [place] [address] 06/15/2024 11:30:11 06/15/2024 12:15:35 Nicotine dependence 89830496 F17.200 We discussed your smoking/va ping today for more than 3 minutes.Sm oking tobacco is the leading cause of preventabl e disease, disability , and in the [place]. Inhaling aerosolize d nicotine is widely believed to be safer than combustibl e tobacco, but still exposes people to numerous harmful substances , heavy metals like lead, and cancer-cau sing agents. Nicotine is harmful to developing brains and can disrupt the formation of brain circuits that control attention, learning, and susceptibi lity to addiction. We talked about tools and medication s available to help you in smoking/va ping cessation. We discussed utilizing our smoking cessation assistant women's basketball coach and online resources. Active or passive immunization 238638952 Z23 shingles- reminded Aneurysm o f infrarenal abdominal aorta 006277979 I71.43 After a discussion of treatment and medication options, which included considerat ion of the best practices in medicine, a medical plan was provided. The patient's opinions and concerns were included in this treatment plan and goal. -Number to VASC[facility] given and patient instructed to schedule the appointmen t. Referral completed. -If this specialty office requires [facility] to schedule the appointmen t the patient will call our office back and we will have the referrals department schedule it. -Will call with any new concerns or worsening symptoms. Smoker 50760979 F17.200 We talked about tools and medication s available to help you in smoking/va ping cessation. We discussed utilizing our smoking cessation assistant women's basketball coach and online resources. Entropion 55083976 H02.0 09 -to see eye surgeon next week Benign ess ential hypertension 9533720 I10 After a discussion of treatment and medication options, which included considerat ion of the best practices in medicine, a medical plan was provided. The patient's opinions and concerns were included in this treatment plan and goal. 1. Discussed Blood Pressure goals.2. BP GOAL is under 130/80. Patient IS AT GOAL.3.Fol low up in 3 months for wellness Health Concerns Section Related Observation LastModified by Organization Detai ls LastModified Time None Recorded Concern Status LastModified by Organization Details LastModified Time None Recorded Advance Directives Directive Y: Daughter Magno Castellon [phone] Payers Encounter Date Sequence Insurance Name Policy Number Policy Porras Covered Member ID Porras Member ID Guarantor Name 11/13/2023 2 [place] Anabela J Gillette [id number] [facility] 11/13/2023 1 [place] [employer] Anabela J Gillette [id number] [facility] 11/19/2023 2 [place] Anabela J Gillette [id number] [facility] 11/19/2023 1 [place] Anabela J Gillette [id number] [facility] 04/23/2024 2 [place] Anabela J Gillette [id number] [facility] 04/23/2024 1 [place] Anabela J Gillette [id number] [facility] 05/15/2024 2 [place] Anabela J Gillette [id number] [facility] 05/15/2024 1 [place] Anabela J Gillette [id number] [facility] 06/15/2024 2 [place] Anabela J Gillette [id number] [facility] 06/15/2024 1 [place] Anabela J Gillette [id number] [facility] Notes Date Note Type Note Provider Name and Address Organization Details Recorded Time 4 text/html Follow-Up: primary hyperparathyroidismFollo w-Up: osteoporosisFollow-Up: benign essential hypertensionFollow-Up: tobacco userissues;discuss labs from 10/22/23 no falls fractures or kidney stones Jude Snowden MD [address] [place] [address], [phone], [facility] 11/13/2023 12:22:59 4 text/html 09/20/23 got wheel chair fixed, didnt get her new one soc hx - Miri beth- helps w rides (pt here ) Arthritisstabledaniel px - Saw Dr. Castellonweightbearing X-rays of the left knee from 2019 -severe tricompartmental OA with loose bodies in posterior knee joint. Smoking-has - Chantix- had started and made her nauseaus, smoking lessTim has called herEmphysema- on ldctSmoking like smoking, wants to try varenicline againDue -LDCT 11/02 Depression- doing ok on meds COPD- doing ok w inhalers Chhaya Sosa NP [address] [place] [address], [phone], [facility] 11/19/2023 10:20:12 4 text/html 04/23/2024I am a student, Coreen TAMEZ, working with Sana Sosa NP. Patient states doing well. David gr son (ellyn son) helping her. Lives with grandson at home. Feel safe at home. Denies any falls.Has coater hand to help w cleaning once a week, clau No new concerns today.States able to tolerate medications. Denies as side effects. HTNno cp or sob.not checking bp at home. but beth can check COPD:No new concerns.States not taking combivent daily. States taking medication only when needed. Depression:phq 14Denies new concernsNo suicidal ideations. Smoking Cessation:Current everyday cigarette smoker. Declines options or assistance with smoking cessation today. States will discuss when ready. Urinary Incontinence:wears depends during dayOccassional incont in day but worse at nightStates urinary incontinence at night.States unable to ambulate to bathroom at night. Elev PTHto follow up w dr Snowden 09/20/23 got wheel chair fixed, didnt get her new one soc hx - Miri beth- helps w rides (pt here ) Arthritismeghan px - Saw Dr. Castellonweightbearing X-rays of the left knee from 2019 -severe tricompartmental OA with loose bodies in posterior knee joint. Smoking-has - Chantix- had started and made her nauseaus, smoking lessTim has called herEmphysema- on ldctSmoking like smoking, wants to try varenicline againDue -LDCT 12/23 Depression- doing ok on meds COPD- doing ok w inhalers Chhaya Sosa NP [address] [place], [address], [facility] 04/23/2024 13:42:17 4 text/html here w/ daughter and grandsonshaving wicked pain starts in back, now coming forwardtried heating packs, tylenol nothing helpsstarted tuesdayspain worse w/ movement, but will happen lying downconstant, will become worse and then dullburningeating and drinkingno vomiting, doesnt feel good nausea sometimesno diarrhea, but if have to go better get in there not normal movement going 1-2x/day. loosecolonoscopy scheduled for pain w/ urinationincontinent at night, but x 6 monthsat first was told had a UTI, then told to stop taking medicationsstates didnt finish antibitotics- was told to to stop bc didnt really have UTIdoesnt feel like has a feverhx gallbladder removeddoes have an aneurysmsmoke ADARSH FOY, KIMBERLYN [address] [place], [phone], [facility] 05/15/2024 15:55:11 4 text/html 06/15/24 Pre op Patient has no concerns. Pre op for entropian surgery requested by Dr Brandon Londono.[facility] EYE Surgery next week- 06/23/24 HCP - magno, in chartMolst in chart, wants resuscitation. No issues w anesthesia in past SmokingDeclines medsstill smoking regularlyldct in 11/03 ordered. Chhaya Sosa NP [address] [place], [phone], [facility] 06/15/2024 12:35:01 OBGyn Episode No OBEpisode recorded.
[2024-12-07 07:06] LABS: Anion Gap 9 (12-20); Blood Urea Nitrogen 16 mg/dL (9-16); Calcium 10.9 mg/dL (8.4-10.2); Carbon Dioxide 31 mmol/L (22-29); Chloride 107 mmol/L (96-108); Estimated Glomerular Filt Rate > 60; Glucose Random 78 mg/dL (60-115); Potassium 4.3 mmol/L (3.3-5.1); Sodium 143 mmol/L (135-145)
[2024-12-07 07:16] LABS: Basophils Percent Auto 0.7 % (0-2); Eosinophils Absolute Auto 0.1 X10*3/uL (0.0-0.4); Eosinophils Percent Auto 1.5 % (0-4); Hematocrit 36.4 % (37.0-47.0); Hemoglobin 11.9 g/dl (12.0-16.0); Imm Gran Abs Auto 0.01 X10*3/uL (0.00-0.03); Imm Gran Pct Auto 0.2 % (0.0-0.4); Lymphocytes Absolute Auto 2.1 X10*3/uL (1.2-4.9); Lymphocytes Percent Auto 35.7 % (20-40); Mean Corpuscular HGB Conc 32.7 g/dl (31.0-35.0); Mean Corpuscular Hemoglobin 34.1 pg (27.0-33.0); Mean Corpuscular Volume 104.3 fL (80.0-98.0); Mean Platelet Volume 10.8 fL (9.4-12.3); Monocytes Absolute Auto 0.5 X10*3/uL (0.1-1.2); Monocytes Percent Auto 7.9 % (2-11); Neutrophils Absolute Auto 3.2 x10*3/uL (2.0-8.3); Platelet Count 141 X10*3/uL (160-400); Red Blood Count 3.49 X10*6/uL (4.20-5.50); Red Cell Distribution Width 13.4 % (11.0-16.0); White Blood Count 5.9 X10*3/uL (4.8-10.8)
== END 2024-12-07 06:17 | disposition home or self-care (01) ==
LOC: HO.MMNH2L 06:16
PROVIDERS: Visit Provider Student in an Organized Health Care Education/Training Program
DX: J44.9 Chronic obstructive pulmonary disease, unspecified (principal)
CPT/HCPCS: 36415; 80048; 85025

== ENCOUNTER 2024-12-10 15:16 | Outpatient (REF) | payer MEDICARE, MEDICAID, SELFPAY ==
--- OUTSIDE RECORDS SUMMARY | 2024-12-10 19:05 | XMS_ITS | Clinical Summary ---
Author Organization [facility] [address] [facility] [address] Address [address] [place] [address] Phone Care Team Providers Care Block Operator Name Role Phone Saqib Lock MD Primary Care Provi amelia Encounters Date Type Department Care Team Description 11/16/2024 Telephone Lung Screening Program - [address] [phone] Jeanie Anders [place] 11/02/2024 Telephone Lung Screening Program - [address] [phone] Love Ty [place] Appointment (Upcoming LDCT) from Last 3 Months Medical History Medical History Date Comments Current every day smoker DX:Curr ent every day smoker Essential (primary) hypertension DX:Essential (primary) hypertension COPD (chronic obstructive pu lmonary disease) ([facility]) DX:COPD (chronic obstructive pulmonary disease) ([facility]) Depression DX:Depression Thyroid disease DX:Thyroid disea se [...] Upcoming Encounters Date Type Department Care Team ([facility] st Contact Info) Description 01/28/2025 9:30 AM EDT Appointment [facility] Scan [address] [place] [address] Health Maintenance Due Date Last [...] age to complete this topic Care Teams Block Operator Relationship Specialty Start Date End Date Saqib Lock MD [address] [place] [address] [facility] - General 10/30/22
--- OUTSIDE RECORDS SUMMARY | 2024-12-10 19:05 | XMS_ITS | Encounter Summary ---
Author Organization [facility] Address [id number] [place] [phone] Care Team Providers Care Box Finisher Name Role Phone Saqib Lock MD Primary Care Provi amelia Encounter Details Date Type Department Care Team (Late st Contact Info) Description 11/16/2024 Telephone Lung Screening Program - [address] [phone] Jeanie Anders [place] Social History Tobacco Use [...] Info) Description 01/28/2025 9:30 AM EDT Appointment [facility] CT Scan [address] [place] [phone] documented as of this encounter Visit Diagnoses Not on filedocumented in this encounter Care Teams Box Finisher Relationship Specialty Start Date End Date Saqib Lock MD [address] [place], [place] PCP - General 10/30/22 documented as of this encounter
--- OUTSIDE RECORDS SUMMARY | 2024-12-10 19:05 | XMS_ITS | Data Portability ---
Author Organization [facility], Main Office Address [address] [facility] [address] [place] [address] Care Team Providers Care Internet Media Planner Name Role Phone NIKITA LIN Primary Care Provide r СВЕТЛАНА ROBERSON 2ND FLOOR OTHER Assessment Encounter Date Assessment Date Assessment LastModified by Organization Details LastModified Time 10/26/2024 10/26/2024 Labs 09/14: [id number] 4.6-Bun 16- cr 0.7-wbc 7.1-hgb 9.4-hct 28.7-plt 222 Labs 09/28: Na 144- K 3.0-Bun 12- Cr 0.6-wbc 9.6-hgb 10.40 hct 31.0-plt 198 Labs 10/05:Na 141- K 3.7-Bun 13- Cr 0.6-wbc 5.5-hgb 10.7-hct 32.2-plt 163 Labs 10/13: Na 141-K 3.8-Bun 14-Cr 0.6-wbc 8.2-hgb 11.8-jki24-fy t 188-calcium 12.7 Labs 10/19: Na 141- K 3.2-Bun 18-cr 0.6-wbc 3.2-hgb 11.5-hct 34.7-200 Labs 10/26: Na 143-K 3.8-Bun 21- Cr 0.8-wbc 6.6-hgb 11.7-hct 35-plt 18- Not available 10/26/2024 14:34:38 11/02/2024 11/02/2024 Labs 09/14: [id number] 4.6-Bun 16- cr 0.7-wbc 7.1-hgb 9.4-hct 28.7-plt 222 Labs 09/28: Na 144- K 3.0-Bun 12- Cr 0.6-wbc 9.6-hgb 10.40 hct 31.0-plt 198 Labs 10/05:Na 141- K 3.7-Bun 13- Cr 0.6-wbc 5.5-hgb 10.7-hct 32.2-plt 163 Labs 10/13: Na 141-K 3.8-Bun 14-Cr 0.6-wbc 8.2-hgb 11.8-sgx44-vr t 188-calcium 12.7 Labs 10/19: Na 141- K 3.2-Bun 18-cr 0.6-wbc 3.2-hgb 11.5-hct 34.7-200 Labs 10/26: Na 143-K 3.8-Bun 21- Cr 0.8-wbc 6.6-hgb 11.7-hct 35-plt 18- Not available 11/02/2024 12:34:17 11/05/2024 11/05/2024 Labs 09/14: [id number] 4.6-Bun 16- cr 0.7-wbc 7.1-hgb 9.4-hct 28.7-plt 222 Labs 09/28: Na 144- K 3.0-Bun 12- Cr 0.6-wbc 9.6-hgb 10.40 hct 31.0-plt 198 Labs 10/05:Na 141- K 3.7-Bun 13- Cr 0.6-wbc 5.5-hgb 10.7-hct 32.2-plt 163 Labs 10/13: Na 141-K 3.8-Bun 14-Cr 0.6-wbc 8.2-hgb 11.8-ckf28-uq t 188-calcium 12.7 Labs 10/19: Na 141- K 3.2-Bun 18-cr 0.6-wbc 3.2-hgb 11.5-hct 34.7-200 Labs 10/26: Na 143-K 3.8-Bun 21- Cr 0.8-wbc 6.6-hgb 11.7-hct 35-plt 18- Not available 11/05/2024 14:20:13 11/09/2024 11/09/2024 Labs 09/14: [id number] 4.6-Bun 16- cr 0.7-wbc 7.1-hgb 9.4-hct 28.7-plt 222 Labs 09/28: Na 144- K 3.0-Bun 12- Cr 0.6-wbc 9.6-hgb 10.40 hct 31.0-plt 198 Labs 10/05:Na 141- K 3.7-Bun 13- Cr 0.6-wbc 5.5-hgb 10.7-hct 32.2-plt 163 Labs 10/13: Na 141-K 3.8-Bun 14-Cr 0.6-wbc 8.2-hgb 11.8-cdd67-xj t 188-calcium 12.7 Labs 10/19: Na 141- K 3.2-Bun 18-cr 0.6-wbc 3.2-hgb 11.5-hct 34.7-200 Labs 10/26: Na 143-K 3.8-Bun 21- Cr 0.8-wbc 6.6-hgb 11.7-hct 35-plt 18- Not available 11/18/2024 10:42:00 Plan of Treatment Reminders Order Date Submit Date Provider Last Modified By Organization Details Last Modified Time Details Appointments Telemed Acute Rounding 2024 03:22P M KIMBERLYN MERCEDES Not available Not available Not available Lab None recorded. Referral None recorded. Procedures None recorded. Surgeries None recorded. Imaging None recorded. Medication Orders None recorded. Patient TargetsNo targets recorded. Patient InstructionsNo instructions recorded. Reason for Referral None Reported. Problems Name Problem SNOMED Code Status Onset Date Resolution Date Notes Provider Name and Address Organization Details Recorded Time Pulmonary emphysema 74885465 Active [address], [address], [address], [facility] [employer] [facility] 3 10:46:22 Osteoarth ritis 379499550 Active [address], [facility] [address], [place], [address], [facility] [employer] 3 10:46:28 Asthma 670551481 Active [address], [facility] [address], [place], [address], [facility] [employer] 3 10:46:32 Cyst of breast 293180519 Completed 202209/07/2024 KIMBERLYN MERCEDES [address] , [address], [place], [address], [facility] 4 20:44:27 Chronic obstructi ve pulmonary disease 73881866 Active 2022 VANGIE [address] , [address], [place], [address], [facility] 3 10:46:48 Obesity 585470827 Completed 202209/07/2024 KIMBERLYN MERCEDES [address] , [address], [place], [address], [facility] 4 20:44:27 Depressiv e disorder 40749676 Active 2022 VANGIEDIMA LORENZANA [address] [place] [address], [address], [place], [address], [facility] 3 10:47:08 Hyperlipi demia 44839661 Active [address], [address], [place], [address], [facility] 3 10:47:16 Polyp of colon 40726118 Completed 202209/07/2024 KIMBERLYN MERCEDES [address] , [address], [place], [address], [facility] 4 20:44:27 History of deep vein thrombosi s 692588604 Active [address], [address], [place], [address], [facility] 3 10:47:37 Essential hypertens ion 88140997 Active [address], [address], [place], [address], [facility] 3 10:51:08 Closed fracture of left patella 852487707293 59910 Completed 202209/07/2024 KIMBERLYN MERCEDES [address], [address], [place], [address], [facility] 4 20:44:27 Gastroeso phageal reflux disease without esophagit is 048922874 Active 2022 VANGIE LORENZANA [address] [place] [address], [address], [place], [address], [facility] 3 10:57:14 Fall Active 2022 VANGIE LORENZANA [address] [place] [address], [address], [place], [address], [facility] 3 11:02:17 Fracture of proximal end of femur 356577718 Completed 202309/07/2024 KIMBERLYN MERCEDES [address] [place] [address], [address], [place], [address], [facility] 4 10:10:21 Tobacco user 325137263 Active 2023 VANGIEDIMA LORENZANA [address] [place] [address], [address], [place], [address], [facility] 4 15:12:34 Hypercalc emia 39294329 Completed 202309/07/2024 KIMBERLYN MERCEDES [address] [place] [address], [address], [place], [address], [facility] 4 20:44:27 History of thrombocy topenia 742574337112 08 Completed 202309/07/2024 KIMBERLYN MERCEDES [address] [facility], [address], [place], [address], [facility] 4 20:48:33 Constipat ion 88095821 Active 2023 Holly Robles MD [address] [facility], [address], [place], [address], [facility] 4 21:45:11 Fracture of proximal end of femur 396830168 Active 2023 KIMBERLYN MERCEDES [address] [facility], [address], [place], [address], [facility] 4 10:10:21 Problem Notes None recorded. Procedures Surgical History Date Name Laterality Status Provider Name and Address Organization Details Recorded Time ligation of fallopian tube completed [address], [address], [place], [address], [employer] 01/28/2023 10:47:49 cholecystectomy completed [address], [address], [place], [address], [facility] 01/28/2023 10:47:57 Imaging Results None recorded. Procedure [...] Details Last Updated DateTime 11/05/2024 172.72 cm KIMBERLYN MERCEDES [address] [place] [address], [facility] [address], [place], [address], [employer] 11/05/2024 14:20:16 Date Recorded Body height Body temperature Respiratory rate Heart rate Oxygen saturation Oxygen saturation in Arterial blood by Pulse oximetry Systolic blood pressure Diastolic blood pressure Provider Name and Address Organization Details Last Updated DateTime 4 172.72 cm 98 [degF] 18 /min 71 /min 96 % 96 % 122 mm[Hg] 72 mm[Hg] KIMBERLYN MERCEDES [address] [facility], [address], [place], [address], [employer] 5 10:39:20 Social History Question Answer Notes LastModified by Organization Details LastModified Time Tobacco Smoking Status Former Smoker every day, [address], [address], [place], [address], [employer] 01/28/2023 10:48:58 Do You Have An Advance Directive? Yes Information not available 07/20/2024 What Is Your Level Of Alcohol Consumption? None Information not available 01/28/2023 What Is Your Code Status? Full Code Information not available 01/28/2023 Where Do You Live? Apartment 1st Floor, Accessible. Information not available 07/20/2024 Legal Guardian? No Informati on not available 01/28/2023 Do You Have A Medical Power Of Clean Up Person? Yes Information not available 07/20/2024 What Was [...] Immunizations Vaccine Type Date Status Note Provider Jack cunningham and Address Organization Details Recorded Time SARS-COV-2 (COVID-19) vaccine, UNSPECIFIED completed Minnie yang [place] [facility] 01/28/2023 16:51:35 SARS-COV-2 (COVID-19) vaccine, UNSPECIFIED 1 completed Minnie Zaheer [facility] 01/28/2023 16:51:48 Tdap 5 completed Minnie King [facility] 01/28/2023 16:52:09 influenza, unspecified formulation 1 completed Minnie King [facility] 01/28/2023 16:52:33 pneumococcal conjugate PCV 7 6 completed Minnie King [facility] 01/28/2023 16:53:01 pneumococcal polysaccharide PPV23 2 completed Minnie Zaheer [facility] 01/28/2023 16:53:16 zoster recombinant 9 completed Minnie Schwab [facility] 01/28/2023 16:53:33 zoster live 2 completed Minnie Zaheer [facility] 01/28/2023 16:53:50 Influenza, adjuvanted, quadrivalent, PF 2 completed Mily Almonte [facility] 12/11/2023 11:33:48 Influenza, adjuvanted, quadrivalent, PF 3 completed Mily Almonte [facility] 01/09/2024 11:17:44 Past Encounters Encounter ID Performer Location Encounter Start Date Encounter Closed Date Diagnosis/Indication Diagnosis SNOMED-CT Code Diagnosis ICD10 Code Diagnosis Note [id number] VANGIE LORD [facility] on [address] [place] [address] 01/28/2023 10:42:58 01/30/2023 14:52:45 Closed fracture of left patella 4021092436 3713187 S82.002D see HPI, s/p fallKnee immobilize r while OOBWBAT, PT/OT eval and treatmonit or pain control Hyperlipidemia 20589197 E78.5 lipitor 20 mg dailymonit or lipids outpt with PCP Essential hypertension 16396189 I10 cardizem 120 mg dailybenic ar 40-25 dailymonit or bps 136/78 today Gastroesop hageal reflux disease without esophagitis 014818056 K21.9 pepcid 20 mg BIDmonitor for reflux Chronic ob structive pulmonary disease 22255212 J44.9 combivent QIDmonitor resp statusenco urage smoking cessation Pulmonary emphysema 8743 3001 J43.9 see aboveencou rage cessation Depressive disorder 1178 1567 F32.A zoloft 100 mg dailymonit or mood, consult [facility] if needed Fall 7877779 R29.6 fell after getting OOBminimiz e fall riskPT/OT eval and treat MD [facility] on [address] [place] [address] 01/29/2023 13:50:17 01/31/2023 09:49:56 Fracture of fibula 60146074 S82.402D follow ortho recs; working w pt/ot;has knee immobilize r per ortho;cons ider aspirin anticoagul ation if patient is immobilize d; Essential hypertension 52537608 I10 asymptomat ic; hemodynami alysia stable; good rate; clear lungs; good sats; follow; History of deep vein thrombosis 662458493 Z86.718 noted;afte r knee surgery 2000;she seems to be adequately mobilized at this pointconsi amelia aspirin; Asthma 453505038 J45.90 9 asymptomat ic; on combivent; Hypercholesterolemia 136 54628 E78.00 on statin; Depressive disorder 3472 0748 F32.A well compensate d; on sertraline Medication monitoring 39 4604815 Z51.81 [facility] / Olmesartan -Hydrochlo rothiazide 40/25 mg/d; cardizem CD 120 mg/d;pulm / combivent; endo / lipitor 20 mg/d;heme /gi / pepcid;gu /neuro / sertraline 100 mg/d; [id number] VANGIE LORENZANA [facility] on [address] [place] [address] 02/04/2023 09:11:52 02/06/2023 09:35:44 Closed fracture of left patella 3156365305 8654368 S82.002D see HPI, s/p fallKnee immobilize r while OOBWBAT, PT/OT to continue outpt with [facility] Hyperlipidemia 98062234 E78.5 lipitor 20 mg dailymonit or lipids outpt with PCP Essential hypertension 76872518 I10 cardizem 120 mg dailybenic ar 40-25 dailystabl e Gastroesop hageal reflux disease without esophagitis 476575751 K21.9 pepcid 20 mg BID Chronic ob structive pulmonary disease 03616653 J44.9 combivent QIDencoura ge smoking cessation Pulmonary emphysema 8743 3001 J43.9 see aboveencou rage cessation Depressive disorder 3548 9007 F32.A zoloft 100 mg daily Fall R29.6 minimize fall risk at homeremove scatter risk [id number] VANGIE ANGEL [address] [facility] [place] [address] 07/18/2024 09:09:20 07/21/2024 09:00:14 Hyperlipidemia 82496970 E78.5 lipitor 20 mg dailymonit or lipids outpt with PCP Essential hypertension 17238772 I10 cardizem 300 mg dailyavali de dailymonit or bps 136/78 today Gastroesop hageal reflux disease without esophagitis 472896398 K21.9 pepcid 20 mg BIDmonitor for reflux Chronic ob structive pulmonary disease 81428861 J44.9 combivent QID prnmonitor resp statusenco urage smoking cessation Pulmonary emphysema 8743 3001 J43.9 see aboveencou rage cessation Depressive disorder 996 4607 F32.A zoloft 100 mg dailyvitam in d3 dailymonit or mood, consult [facility] if needed Fall R29.6 see HPIminimiz e fall riskPT/OT eval and treat Tobacco user 456813986 Z 72.0 hx of heavy tobacco use and recently stopped secondary to stay at short-term rehab. She has not requested any nicotine replacemen t therapy while here but that can be offered if need be. Hypercalcemia 16504980 E 83.52 elevated serum calcium levels dating back to spring 2022.Mildl y elevated inpatient and do not appear to be causing her any symptomsHe r PTH was elevated suggesting primary hyperparat hyroidism. Patient should see endocrinol ogy through [facility] after discharge from senior care facility.d tr aware to work on this Fracture o f proximal end of femur 232541778 S72.001A s/p pinningWBA T, PT/OT eval and treatmonit or pain controloxy codone 5 mg q 4 hours prnapap 650 mg q 6 hours prnlovenox 40 mg sq x 30 days [id number] MD GAMAL Mac [address] [place], [place] [address] 07/20/2024 19:49:57 07/27/2024 09:02:40 Fracture of proximal end of femur 111825872 S72.021D Recovering as expected.C ontinue oxycodone 5 mg q 4 hrs prn and APAP 650 mg q 6 hrs prnContinu e lovenox 40 mg sq x 30 days for DVT prophylaxi s.Needs PT/OT for strengthen ing, balance, gait training, safety and function.C ontinue fall precaution s.Monitor for safety.F/U with ortho on 07/30 as planned. Essential hypertension 40094379 I10 In good control on diltiazem 300 mg qd and irbesartan /HCTZ 150/12.5 mgMonitor BP and labs. Hyperlipidemia 40249414 E78.49 Continue atorvastat in 20 mg qdMonitor labs as outpt. Gastroesop hageal reflux disease without esophagitis 773866905 K21.9 No current sxs.Contin ue famotidine 20 mg BIDMonitor for GI sxs. Chronic ob structive pulmonary disease 21017154 J43.8 No current sxs.Contin ue combivent 1 puff q 4 hrs prnMonitor resp statusCont inue to encourage smoking cessation Depressive disorder 3548 9007 F33.8 Continue sertraline 100 mg qdMood good today.Bridgett tor mood.Consu lt psych prn Fall R29.6 PT/OT as above.Cont inue fall precaution s.Monitor for safety. 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 Has not smoked since in hospital/r ehab. Hypercalcemia 17090097 E 83.52 Probable primary hyperparat hyroidism. To f/u with endo outpt.Bridgett tor Ca+ levels. History of thrombocytopenia 7504118382 9108 Z86.2 Dropped post-op inpt, now back to nl.Monitor labs. Constipation 69114063 K5 9.03 Will give MOM tonight and start miralax 17 gms qd.Continu e prn medsMonito r bowel function. [id number] VANGIE YEUN[address] [place] [address] 07/23/2024 11:08:18 07/24/2024 12:29:48 Fracture of proximal end of femur 415604814 S72.001A s/p pinning- site healing wellWBAT, PT/OT eval and treatoxyco done 5 mg q 4 hours prn - still taking frequently apap 650 mg q 6 hours prnlovenox 40 mg sq x 30 days total fall R29.6 continue PT dailyrepor ts pain with movement but tolerable with oxy Tear of skin 070399225 T 14.8XXD add xeroform to wound bed of skin tear on left arm and cover with foamchange dressing dailyonce healed [place] [id number] VANG[place] [address] 07/27/2024 09:01:00 07/29/2024 08:25:43 Fracture of proximal end of femur 144632728 S72.001A s/p pinning- site healing wellWBAT, PT/OT [...] Make note of drainage, color, and odor. fall R29.6 continue PT dailyrepor ts pain with movement but tolerable with oxy prior to working with physical therapy Tear of skin 316731239 T 14.8XXD add xeroform to wound bed of skin tear on left arm and cover with foamContin ue to change dressing dailyonce healed [place] [id number] DOUG MEJIA NP-C [address] [place] [address] 07/29/2024 11:12:02 07/30/2024 11:51:48 COVID-19 600771500 U07.1 tested posstable on RA, no ssbaseline cough and wheezing w/ h/o COPDpaxlov id not indicated at this timemainta in precaution sretest per protocolmo nitor VS and resp. status [id number] VANGIE ANGEL [address] [address] 08/03/2024 09:12:48 08/04/2024 12:59:14 COVID-19 780201529 U07.1 Recoveredm onitor VS and resp. status Fracture o f proximal end of femur 974920306 S72.001A s/p pinning- site healing wellContin ue [...] drainage, color, and odor. Tear of skin 087651292 T 14.8XXD add xeroform to wound bed of skin tear on left arm and cover with foamContin ue to change dressing daily [id number] VANGIE PAYNERIMA [address] [address] 08/06/2024 10:51:39 08/07/2024 13:04:19 COVID-19 676254361 U07.1 Recovered Fracture o f proximal end of femur 035695286 S72.001A s/p pinning- site healing wellContin ue [...] drainage, color, and odor. Tear of skin 201467502 T 14.8XXD healing Fall R29.6 continue PT daily Essential hypertension 94956544 I10 cardizem 300 mg dailyavali de dailymonit or bps Hyperlipidemia 50059111 E78.5 lipitor 20 mg dailymonit or lipids outpt with PCP Gastroesop hageal reflux disease without esophagitis 268722204 K21.9 pepcid 20 mg BIDmonitor for reflux none noted Chronic ob structive pulmonary disease 72456232 J44.9 combivent QID prnmonitor resp statusenco urage smoking cessation Pulmonary emphysema 8743 3001 J43.9 see aboveencou rage cessation Depressive disorder 3548 9007 F32.A zoloft 100 mg dailyvitam in d3 dailymonit or mood, consult [facility] if needed [id number] [place] [address] 08/11/2024 09:55:34 08/12/2024 11:44:33 Fracture of proximal end of femur 789613896 S72.001A s/p pinning, site healedorde r placed to remove tata todayConti nue WBAT, PT/OTConti nue oxycodone 5 mg q 4 hours prn- using randomlyCo ntinue apap 650 mg q 6 hours prnlovenox 40 mg sq x 30 days total to end 08/18 Edema of l ower extremity 576850149 R60.0 consider lasix dailyadd cbc bmp bnp tomorrowel evate 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 Patient should see endocrinol ogy through [facility] after discharge from senior care facility.1 1.8 corrected [id number] [place] [address] 08/19/2024 10:32:29 08/20/2024 13:56:24 Dizziness 709213996 R42 add cbc and bmp tomorrowen courage PO fluidscons ider IVF if neededmoni tor bps [id number] VANGIE ANGEL [address] [place] [address] 08/28/2024 09:55:39 08/31/2024 14:13:31 Dizziness 783648326 R42 resolved Edema of l ower extremity 156836027 R60.0 BNP in range for patientace wraps daily, off qhs Hypercalcemia 52270634 E 83.52 elevated serum calcium levels dating back to spring 2022.Mildl y elevated inpatient and do not appear to be causing her any symptomsHe r PTH was elevated suggesting primary hyperparat hyroidism. Patient should see endocrinol ogy through [facility] after discharge from senior care facility.1 1.8 corrected Fracture o f proximal end of femur 330031116 S72.001A s/p pinning, site healedDC oxycodone 5 mg q 4 hours prn-not usingConti nue apap 650 mg q 6 hours prn COVID-19 283599596 U07.1 Recovered Essential hypertension 62460911 I10 cardizem 300 mg dailyavali de daily Hyperlipidemia 44670885 E78.5 lipitor 20 mg dailymonit or lipids outpt with PCP Gastroesop hageal reflux disease without esophagitis 883755500 K21.9 pepcid 20 mg BID Chronic ob structive pulmonary disease 40342730 J44.9 combivent QID prnencoura ge smoking cessation Pulmonary emphysema 8743 3001 J43.9 see aboveencou rage cessation Depressive disorder 7388 9007 F32.A zoloft 100 mg dailyvitam in d3 daily [id number] KIMBERLYN MERCEDES DA [address] [place] [address] [place] [address] 09/07/2024 07:41:45 09/08/2024 13:21:36 Closed fracture of hip 012549590 S72.001A s/p ORIFcontin ue lovenox 40 mg daily/dvt ppx for until 10/06conti nue tylenol and oxycodone prnPT/OT eval and TXfollow up with ortho in 2 weeksStapl es covered with dressing intact - not removed Essential hypertension 38951350 I10 meds held in acute care due to soft BPparamete rs to hold for SBP < 120continu e cardizem 300 mg Depressive disorder 3548 9007 F32.A Zoloft 100 mg daily Hypercalcemia 50570056 E 83.52 elevated serum calcium levels dating back to spring 2022.Mildl y elevated inpatient and do not appear to be causing her any symptomsHe r PTH was elevated suggesting primary hyperparat hyroidism. Patient should see endocrinol lise through [facility] after discharge from senior care facility.1 1.8 corrected Anemia fol lowing acute postoperative blood loss 0954738498 7359911 D62 surgery relatedhgb fell from 11.1 to 8.7did not require transfusio nmonitor hgb Hyperlipidemia 44556922 E78.5 lipitor 20 mg dailymonit or lipids outpt with PCP Gastroesop hageal reflux disease without esophagitis 233220477 K21.9 pepcid 20 mg BID Chronic ob structive pulmonary disease 98643333 J44.9 combivent QID prnencoura ge smoking cessation Asthma 429006438 J45.90 9 asymptomat ic; on combivent; History of deep vein thrombosis 794357567 Z86.718 after knee surgery 2000prior to fall not on anticoag due to active mobilityno w on lovenoxcon remotely operated vehicle adding asa when lovenox is d/c Fall R29.6 PT/OTmaint ain safety Osteoarthritis 406107668 M19.90 continue tylenol prn [id number] [facility] [address] [place] [address] 09/08/2024 13:34:28 09/09/2024 12:17:01 Closed fracture of hip 773614239 S72.001A see HPIright hip fx s/p ORIFfollow ortho recs and update with concernsmo nitor for pain controlPT OT eval and treatloven ox for EVT prophylaxi s Essential hypertension 65868702 I10 cardizem 300 mg qdmonitor bp and need to titrate Depressive disorder 3548 9007 F33.8 zoloft 100 mg qdcontinue dmonitor mood Anemia fol lowing acute postoperative blood loss 7820477541 4163915 D62 no transfusio n in hospitalre peat cbc orderediro n studies prn Hyperlipidemia 00831639 E78.2 lipitor 20 mg qdcontinue d Gastroesop hageal reflux disease without esophagitis 707846332 K21.9 famotidine 20 mg bidmonitor for sx relief Chronic ob structive pulmonary disease 40389525 J41.1 continue out patient medication smonitor albuterol utilizatio nencourage 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 Fall R29.6 PT OT eval and treatmonit or fall risk and need for increased support in community Osteoarthritis 385094325 M15.0 controlled with prn tylenoladd ed to PMH Hypokalemia 56639563 E87 .6 now on KCl 40 meqs qdrepeat bmpmonitor lytes [id number] KIMBERLYN MERCEDES [address] [address] 09/17/2024 09:31:46 09/21/2024 12:45:13 Closed fracture of hip 236576622 S72.001A s/p ORIFcontin ue PT/OTconti nue lovenox 40 mg daily/dvt ppx for until 10/06conti nue tylenol and oxycodone prnfollow up with ortho in 2 weeks 09/21/24St aples covered with dressing intact - not removed Essential hypertension 38041148 I10 BP stablecont inue cardizem 300 mg Depressive disorder 3548 9007 F32.A Zoloft 100 mg dailymood is good Hyperlipidemia 51657474 E78.5 lipitor 20 mg dailymonit or lipids outpt with PCP Gastroesop hageal reflux disease without esophagitis 561429499 K21.9 pepcid 20 mg BID Chronic ob structive pulmonary disease 37524757 J44.9 NO Increase WOBcombive nt QID prnencoura ge smoking cessation Fall R29.6 PT/OTmaint ain safety Fracture o f proximal end of femur 673272783 S72.001A s/p left proximal femur IM nail fixation 4cont inue PT/OT [id number] KIMBERLYN MERCEDES [address] [address] 09/21/2024 08:39:37 09/22/2024 11:47:04 Closed fracture of hip 816412820 S72.001A s/p ORIFcontin ue PT/OTconti nue lovenox 40 mg daily/dvt ppx for until 10/06conti nue tylenol and oxycodone prnfollow up with ortho in 2 weeks 09/21/24St aples covered with dressing intact - not removed Essential hypertension 71592074 I10 BP stablecont inue cardizem 300 mg Chronic ob structive pulmonary disease 35988754 J44.9 NO Increase WOBcombive nt QID prnencoura ge smoking cessation [id number] KIMBERLYN MERCEDES [address] [address] 10/01/2024 09:07:27 10/02/2024 10:23:31 Closed fracture of hip 871623734 S72.001A s/p ORIFcontin ue PT/OTconti nue lovenox 40 mg daily/dvt ppx for until 10/06con nue tylenol and oxycodone prnfollow up with ortho in 2 weeks 09/21/24St aples covered with dressing intact - not removed Essential hypertension 24267685 I10 BP stablecont inue cardizem 300 mg Chronic ob structive pulmonary disease 49132813 J44.9 NO Increase WOBcombive nt QID prnencoura ge smoking cessation Acute hypokalemia 166413 03 E87.6 3.0not on diuretics , steroidsst art kcl 10 meq and recheck on 10/04 [id number] KIMBERLYN MERCEDES [address] [address] 10/05/2024 11:16:11 10/06/2024 11:11:03 Closed fracture of hip 450990560 S72.001A s/p ORIFcontin ue PT/OTconti nue lovenox 40 mg daily/dvt ppx for until 10/06con nue tylenol and oxycodone prnfollow up with ortho in 2 weeks 09/21/24in cision healed Essential hypertension 04105875 I10 BP stablecont inue cardizem 300 mg Chronic ob structive pulmonary disease 16213499 J44.9 NO Increase WOBcombive nt QID prnencoura ge smoking cessation Acute hypokalemia 490320 03 E87.6 repleted po with kcl 10 meq improvemen t now noted 3.7? is decrease possible related to recent abx use she was on ciprofloxa jaden for UTIwill monitor K Pain of ri ght knee region 1432631480 44014 M25.561 reports pain started after hip repairdesc ribed as cramping, pain with dorsiflexi onshe is concerned for ? blood clotthere is no swelling or point tenderness will ord ultrasound will order tramadol 50 mg Q6 prn until pending results. [id number] KIMBERLYN MERCEDES [address] [place] [address] 10/12/2024 12:11:08 10/15/2024 11:19:28 Closed fracture of hip 832749192 S72.001A s/p ORIFcontin ue PT/OTconti nue lovenox 40 mg daily/dvt ppx for until 10/06conti nue tylenol and oxycodone prnfollow up with ortho in 2 weeks 09/21/24in cision healed Essential hypertension 63636475 I10 BP stablecont inue cardizem 300 mg Chronic ob structive pulmonary disease 58124912 J44.9 NO Increase WOBcombive nt QID prnencoura ge smoking cessation Pain of ri ght knee region 5188073234 05385 M25.561 see hpiimaging negative for DVTreports pain started after hip repairdesc ribed as cramping, pain with dorsiflexi onshe is concerned for ? blood clotthere is no swelling or point tenderness Hypercalcemia 88309086 E 83.52 today 12.7elevat ed serum calcium levels dating back to spring 2022.Mildl y elevated inpatient and do not appear to be causing her any symptomsHe r PTH was elevated suggesting primary hyperparat hyroidism. refer to endocrinol ogprakash through [facility] after discharge from senior care facilitydi scussed with nursing to hold calcium and vit D for now [id number] KIMBERLYN MERCEDES [address] [address] 10/15/2024 08:36:48 10/16/2024 12:00:47 Closed fracture of hip 942948039 S72.001A s/p ORIFcontin ue PT/OTconti nue lovenox 40 mg daily/dvt ppx for until 10/06conti nue tylenol and oxycodone prnincisio n healed Essential hypertension 39589106 I10 BP stablecont inue cardizem 300 mg Chronic ob structive pulmonary disease 34461654 J44.9 NO Increase WOBcombive nt QID prnencoura ge smoking cessation Pain of ri ght knee region 7250046331 79132 M25.561 see hpiimaging negative for DVTreports pain started after hip repairdesc ribed as cramping, pain with dorsiflexi onshe is concerned for ? blood clotthere is no swelling or point tenderness Hypercalcemia 29549727 E 83.52 123: 12.7elevat ed serum calcium levels dating back to spring 2022.Mildl y elevated do not appear to be causing her any symptomsHe r PTH was elevated suggesting primary hyperparat hyroidism. refer to [facility]ocr[facility]ol [facility] through [facility] after discharge from senior care facilitydi scussed with nursing to hold calcium and vit D for nowmonitor for associated sx [id number] KIMBERLYN MERCEDES [address] [address] 10/19/2024 10:14:51 10/20/2024 14:17:10 Closed fracture of hip 723454166 S72.001A s/p ORIFcontin ue PT/OTconti nue tylenol and oxycodone prnincisio n healed Essential hypertension 62605458 I10 BP stablecont inue cardizem 300 mg Chronic ob structive pulmonary disease 56357024 J44.9 NO Increase WOBcombive nt QID prnencoura ge smoking cessation Pain of ri ght knee region 9868890718 18085 M25.561 see hpiimaging negative for DVTreports pain started after hip repairdesc ribed as cramping, pain with dorsiflexi onshe is concerned for ? blood clotthere is no swelling or point tenderness Hypercalcemia 22655897 E 83.52 [id number]/ 9: 11.6elevat ed serum calcium levels dating back to spring 2022.Mildl y elevated do not appear to be causing her any symptomsHe r PTH was elevated suggesting primary hyperparat hyroidism. refer to endocrinol og through [facility] after discharge from senior care facilitydi scussed with nursing to hold calcium and vit D for nowmonitor for associated sx Hypokalemia 86019326 E87 .6 see HPI/suspec t medication inducedK+ 3.2replace now with 20 meq for 1 dosewill add daily kcl 10 meq and continue to monitor. [id number] KIMBERLYN MERCEDES [address] [place] [address] 10/22/2024 08:21:15 10/23/2024 13:25:04 Closed fracture of hip 675700559 S72.001A s/p ORIFcontin ue PT/OT- progressin g slowlycont inue tylenol and oxycodone prnincisio n healed Essential hypertension 59065435 I10 BP stablecont inue cardizem 300 mg Chronic ob structive pulmonary disease 50668846 J44.9 NO Increase WOBcombive nt QID prnencoura ge smoking cessation Pain of ri ght knee region 9262856673 47020 M25.561 imaging negative for DVTthere is no swelling or point tenderness will schedule apap 975 mg TID, pain seems to be interferin g with therapy endurance. discussed with patient and nursing. Hypercalcemia 91393806 E 83.52 huuzdze40/ 9: 11.6elevat ed serum calcium levels dating back to spring 2022.Mildl y elevated do not appear to be causing her any symptomsHe r PTH was elevated suggesting primary hyperparat hyroidism. refer to endocrinol og through [facility] after discharge from senior care facilitydi scussed with nursing to hold calcium and vit D for nowmonitor for associated sx Hypokalemia 75565146 E87 .6 see HPI/suspec t medication inducedK+ 3.2replace now with 20 meq for 1 dosewill add daily kcl 10 meq and continue to monitor. [id number] HILARIO BAZZI, [employer] [address] [address] 10/26/2024 10:36:56 10/27/2024 12:05:26 Closed fracture of hip 759373012 S72.001A s/p ORIFcontin ue PT/OT- progressin g slowlycont inue tylenol and oxycodone prnincisio n healed Chronic ob structive pulmonary disease 95172758 J44.9 NO Increase WOBcombive nt QID prnencoura ge smoking cessation Pain of ri ght knee region 9551386095 07482 M25.561 imaging negative for DVTthere is no swelling or point tenderness continue apap 975 mg TID Hypokalemia 12933000 E87 .6 see HPI/suspec t medication inducedK+ 3.8continu e kcl 10 meq daily.[facility] tor labs [id number] KIMBERLYN MERCEDES [address] [address] 11/02/2024 10:15:17 11/03/2024 09:53:07 Closed fracture of hip 605910202 S72.001A s/p ORIFcontin ue PT/OT- progressin g slowlycont inue tylenol and oxycodone prnincisio n healed Chronic ob structive pulmonary disease 90095596 J44.9 NO Increase WOBcombive nt QID prnencoura ge smoking cessation Dysuria 32354043 R30.0 patient room has strong urine odorUA / C&S pendingnur sing reports hygiene issues noted during straight cathincrea sed fluids encouraged . [id number] KIMBERLYN MERCEDES [address] [address] 11/05/2024 13:49:31 11/06/2024 12:22:28 Dysuria 16764281 R30.0 patient room has strong urine odornursin g reports hygiene issues noted during straight cathincrea sed fluids encouraged . Recurrent urinary tract infection 709099475 N39.0 see hpiC&S results shows sensitivit y to ceftriaxon ewill stop macrobid and start on ceftriaxon e 1 g qd for 3 daysdiscus sed with nursing [id number] KIMBERLYN MERCEDES СВЕТЛАНА ROBERSON [address] [facility] [place] [address] 11/09/2024 13:20:09 11/18/2024 11:14:37 Recurrent urinary tract infection 472836046 N39.0 abx completedm onitor for reoccurenc ewater/ increased fluids encouraged [id number] KIMBERLYN MERCEDES СВЕТЛАНА ROBERSON [address] [facility] [place] [address] 12/10/2024 15:22:50 12/10/2024 18:43:43 Left sided abdominal pain 066824841 R10.9 patient states that she has had this pain in the past and it has been intermitte nt and ongoing, she does not recall if she has seen GIdiscusse d with patient and nursingche ck labs cbc, CMP,straig ht cath for UA with c/sxray KUBconside r referral to GI if labs are non specific Dizziness 758530744 R42 BP 160's (could be related to pain)start meclizine 12.5 mg q 8 prnmonitor for resolution Health Concerns Section Related Observation LastModified by Organization Detai ls LastModified Time None Recorded Concern Status LastModified by Organization Details LastModified Time None Recorded Advance Directives Directive Y: Payers Encounter Date Sequence Insurance Name Policy Number Policy Porras Covered Member ID Porras Member ID Guarantor Name 10/26/2024 2 [place] [facility] [id number] [facility] 10/26/2024 1 [place] [employer] Anabela J Gillette [id number] [facility] 11/02/2024 2 [place] Anabela Gillette [id number] [facility] 11/02/2024 1 [place] [employer] Anabela J Gillette [id number] [facility] 11/05/2024 2 [place] Anabela Gillette [id number] [facility] 11/05/2024 1 [place] [employer] Anabela J Gillette [id number] [facility] 11/09/2024 2 [place] Anabela Gillette [id number] [facility] 11/09/2024 1 [place] [facility] Anabela Gillette [id number] [facility] 12/10/2024 2 [place] [facility] Anabela Gillette [id number] [facility] 12/10/2024 1 MEDICARE B-[place]: [facility] Anabela Gillette [id number] [facility] Notes Date Note Type Note Provider Name and Address Organization Details Recorded Time 10/26/2024 text/html This is 73-year-old female seen [...] she stopped therapy early.. KIMBERLYN MERCEDES [address] [facility], [address], [place], [address], [employer] 10/26/2024 14:47:58 11/02/2024 text/html This is a 74 yr old femal patient seen for acute rounding visit. Per nursing, this past weekend she reported dysuria, a straight cath for urine UA was ordered and completed today. Patient tells me that she has been having sx for about 4 day(frequency and pressure) she has been afebrile KIMBERLYN MERCEDES [address] [facility], [address], [place], [address], [employer] 11/02/2024 12:41:41 11/05/2024 text/html This is a 74 yr old femal patient seen for acute rounding visit follow up for suspected UTI. Patient has been at her usually baseline in [place], she has increased her fluid intake. She was started on macrobid on 11/03. C/S report showed UA is positive for proteus mirabilis with resistance to macrobid. KIMBERLYN MERCEDES [address] [facility], [address], [place], [address], [employer] 11/05/2024 15:15:00 11/09/2024 text/html This is a 74 yr old femal patient seen for acute rounding visit. Patient is doing well, she is at her baseline in [facility]. There sre no acute nursing concerns. She Kaye completed abx therapy and is not experiencing any UTI sx at this time. KIMBERLYN MERCEDES [address] [facility], [address], [place], [address], [facility] 11/18/2024 10:47:49 12/10/2024 text/html Anabela is a 74 yr old female assessed via telemed for acute rounding visit. Patient reports, that she has been having intermittent left sided abdominal pain described as a burning sensation , she feels like the pain get worse with elimination due to bearing down. she denies any diarrhea or constipation.she reports poor appetite, she vomited yesterday after breakfast and has been feeling dizzy; her daughter bought her some divertigo cream that she used but it has not help any. Per nursing she has + BS x4 quads, there is no tenderness or distention. KIMBERLYN MERCEDES [address] [facility], [address], [place], [address], [facility] [employer] [facility] 12/10/2024 18:43:42 OBGyn Episode No OBEpisode recorded.
--- OUTSIDE RECORDS SUMMARY | 2024-12-10 19:06 | XMS_ITS | Data Portability ---
Author Organization [facility], , [facility] Address [address] [place] [address] Care Team Providers Care Engraver Lettering Name Role Phone JUDE SNOWDEN Neonatal Specialist CHHAYA SOSA Primary Care Provider [facility] Aluminum Polisher ROSY TRISTAN Urologist [facility] Assessment Encounter Date Assessment Date Assessment LastModified by Organization Details LastModified Time 11/13/2023 11/13/2023 73yo woman, with a history of thyroid nodules, hypertension, kindly referred by PRODUCTION CONTROL ANALYST Ian for primary hyperparathyroidism and question of [...] could seek a second opinion from another fork operator or a genetic consult. I think CASR [...] None recorded. Lab culture, urine 2023 024 [facility], [address] [place] [address], [address], 4 14:23:35 urinalysi s, dipstick, auto 2023 024 [facility], [address] [place] [address], [address], 4 15:32:30 urinalysi s, dipstick, auto 2023 024 [facility], [address] [place] [address], [address], 4 16:36:40 Referral pelvic floor therapy referral - 73 yo f w incontine nce 2023 024 [email or web address] [facility], [address], [place], [address], 4 15:37:34 vascular surgeon referral 2023 024 [email or web address] Not available 4 08:33:52 Procedures None recorded. Surgeries None recorded. Imaging US, abdominal aorta - 73 yo f w htn, smoker, hx of aneurysm in the mid to distal portion of the aorta. 2023 024 [facility] (Imaging), [address], [place], [address], 4 13:10:01 LDCT, chest, for lung cancer screening - last scan 11/07/23 (Nancy) wants [facility] as its closer, current smoker, 30+ pack year, 5'6 , 244lbsPle ase enroll this patient in the LDCT Lung Cancer Screening Program (for ordering, follow up and shared decision making) 2023 024 [email or web address] [facility], [address] [place], [address], 4 08:51:18 Medication Orders Nicotrol 10 mg inhalatio n cartridge 2023 024 [id number] 500 [id number], [address], [place], [id number], 5 13:11:10 Cipro 500 mg tablet 2023 024 [id number], [address], [place], [phone], 11:46:33 Patient TargetsNo targets recorded. Patient Instructions Encounter Date Encounter Id Patient Instructions Last Modified By Organization Details Last Modified Time 04/23/2024 [id number] Follow up on 07/28/2024 for follow up visit. If any new or worsening concerns, contact the office. [email or web address] Not available 04/23/2024 13:22:56 Patient is seen and examined with the above student. Assessment and Plan formulated with the above student collaboratively with the patient. KIMBERLYN Negro Not available 04/23/2024 13:40:27 06/15/2024 [id number] PRE OPERATIVE MEDICAL EVALUATION : 1. No [...] f w incontinence Referring Physician: Chhaya Sosa [facility], Encounter Date: 04/23/2024 Vascular Surgeon Referral fo r Aneurysm of infrarenal abdominal aorta Referring Physician: Chhaya Sosa [facility], Encounter Date: 06/15/2024 Results Created Date Observation Date Name Description Value Unit Range Abnormal Flag Note LastModifiedBy Organization Detail LastModifiedTime 10/22/2010/22/2023 PTH INTAC T PTH intact 178.6 pg/mL 9.6-66 .3 high Not Available [address], [address], 10/22/2023 14:24:37 10/22/20 23 10/22/2023 VITAM IN [...] er than 30 ng/mL . Not Available [address], [address], 10/22/2023 14:24:38 10/22/20 23 10/23/2023 RENAL PANEL glucose 109 mg/dL 70-100 high Not Available [address], [address], 10/23/2023 15:01:39 10/22/20 23 10/23/2023 RENAL PANEL BUN 12 mg/dL 7-18 Not Available [address], [address], 10/23/2023 15:01:39 10/22/20 23 10/23/2023 RENAL PANEL creatinine 0.9 mg/dL 0.8-1. 3 Not Available [address], [address], 10/23/2023 15:01:39 10/22/20 23 10/23/2023 RENAL PANEL B/C 13.3 ratio Not Available [address], [address], 10/23/2023 15:01:39 10/22/20 23 10/23/2023 RENAL PANEL [...] be used in pregn javier. Not Available [address], [address], 10/23/2023 15:01:39 10/22/20 23 10/23/2023 RENAL PANEL sodium 144 mmol/ L 136-14 5 Not Available [address], [address], 10/23/2023 15:01:39 10/22/20 23 10/23/2023 RENAL PANEL potassium 4.2 mmol/ L 3.5-5. 1 Not Available [address], [address], 10/23/2023 15:01:39 10/22/20 23 10/23/2023 RENAL PANEL chloride 104 mmol/ L 96-107 Not Available [address], [address], 10/23/2023 15:01:39 10/22/20 23 10/23/2023 RENAL PANEL anion gap 9.1 5.0-15 .0 Not Available [address], [address], 10/23/2023 15:01:39 10/22/20 23 10/23/2023 RENAL PANEL CO2 31 mmol/ L 21-32 Not Available [address], [address], 10/23/2023 15:01:39 10/22/20 23 10/23/2023 RENAL PANEL calcium 11.1 mg/dL 8.5-10 .3 high CWP=C onsis tent with previ ous. Not Available [address], [address], 10/23/2023 15:01:39 10/22/2010/23/2023 RENAL PANEL albumin 3.1 g/dL 3.4-5. 0 low Not Available [address], [address], 10/23/2023 15:01:39 10/22/20 23 10/23/2023 RENAL PANEL phosphorous 2.80 mg/dL 2.50-4 .90 Not Available [address], [address], 10/23/2023 15:01:39 10/22/20 23 10/24/2023 CALCI UM, 24 HOUR URINE (W/ CREAT ININE ) calcium/crea tinine ratio 146 mg/g_ creat 30-275 normal Not Available [facility] [address] [place] [address] [address], [place], [address], 10/24/2023 21:53:25 10/22/20 23 10/24/2023 CALCI UM, 24 HOUR URINE (W/ CREAT ININE ) calcium, 24 hour urine 107 mg/24 _h normal Refer ence Range 35-25 0 Low calci um diet 35-20 0 Not Available [facility] [address], [address], 10/24/2023 21:53:25 10/22/20 23 10/24/2023 CALCI UM, 24 HOUR URINE (W/ CREAT ININE ) creatinine, 24 hour urine 0.73 g/24_ h 0.50-2 .15 normal Not Available [facility] [address], [place], [address], 10/24/2023 21:53:25 11/19/19 24 11/19/2023 COMP. METAB OLIC PANEL glucose 99 mg/dL 70-100 Not Available [address], [address], 11/19/2023 13:51:51 11/19/19 24 11/19/2023 COMP. METAB OLIC PANEL BUN 17 mg/dL 7-18 Not Available [address], [address], 11/19/2023 13:51:51 11/19/19 24 11/19/2023 COMP. METAB OLIC PANEL creatinine 1.0 mg/dL 0.8-1. 3 Not Available [address], [address], 11/19/2023 13:51:51 11/19/19 24 11/19/2023 COMP. METAB OLIC PANEL B/C 17.0 ratio Not Available [address], [address], 11/19/2023 13:51:51 11/19/19 24 11/19/2023 COMP. METAB [...] be used in pregn javier. Not Available [address], [address], 11/19/2023 13:51:51 11/19/19 24 11/19/2023 COMP. METAB OLIC PANEL sodium 141 mmol/ L 136-14 5 Not Available [address], [address], 11/19/2023 13:51:51 11/19/19 24 11/19/2023 COMP. METAB OLIC PANEL potassium 3.9 mmol/ L 3.5-5. 1 Not Available [address], [address], 11/19/2023 13:51:51 11/19/19 24 11/19/2023 COMP. METAB OLIC PANEL chloride 101 mmol/ L 96-107 Not Available [address], [address], 11/19/2023 13:51:51 11/19/19 24 11/19/2023 COMP. METAB OLIC PANEL anion gap 7.3 5.0-15 .0 Not Available [address], [address], 11/19/2023 13:51:51 11/19/19 24 11/19/2023 COMP. METAB OLIC PANEL CO2 33 mmol/ L 21-32 high Not Available [address], [address], 11/19/2023 13:51:51 11/19/19 24 11/19/2023 COMP. METAB OLIC PANEL calcium 10.9 mg/dL 8.5-10 .3 high CWP=C onsis tent with previ ous. Not Available [address], [address], 11/19/2023 13:51:51 11/19/19 24 11/19/2023 COMP. METAB OLIC PANEL total protein 6.8 g/dL 6.4-8. 2 Not Available [address], [address], 11/19/2023 13:51:51 11/19/19 24 11/19/2023 COMP. METAB OLIC PANEL albumin 3.4 g/dL 3.4-5. 0 Not Available [address], [address], 11/19/2023 13:51:51 11/19/19 24 11/19/2023 COMP. METAB OLIC PANEL globulin 3.4 g/dL Not Available [address], [address], 11/19/2023 13:51:51 11/19/19 24 11/19/2023 COMP. METAB OLIC PANEL A/G 1.0 ratio 0.8-2. 0 Not Available [address], [address], 11/19/2023 13:51:51 11/19/19 24 11/19/2023 COMP. METAB OLIC PANEL total bilirubin 0.50 mg/dL 0.00-1 .00 Not Available [address], [address], 11/19/2023 13:51:51 11/19/19 24 11/19/2023 COMP. METAB OLIC PANEL AST 32 U/L 0-37 Not Available [address], [address], 11/19/2023 13:51:51 11/19/19 24 11/19/2023 COMP. METAB OLIC PANEL ALT 27 U/L 6-63 Not Available [address], [address], 11/19/2023 13:51:51 11/19/19 24 11/19/2023 COMP. METAB OLIC PANEL alk. phos. 70 U/L 50-136 Not Available [address], [address], 11/19/2023 13:51:51 11/19/19 24 11/19/2023 LIPID PANEL cholesterol 110 mg/dL <200 mg/dl Spike able 200-2 39 mg/dl Borde rline High >240 mg/dl High Not Available [address], [address], 11/19/2023 13:51:53 11/19/19 24 11/19/2023 LIPID PANEL triglyceride s 116 mg/dL <150 mg/dL Marlene l 150-1 99 mg/dL Borde rline High 200-4 99 mg/dL High >500 mg/dL Very High Not Available [address], [address], 11/19/2023 13:51:53 11/19/1911/19/2023 LIPID PANEL direct HDL 45 mg/dL <40 mg/dl - Major Risk for CHD >60 mg/dl - Negat abigail Risk for CHD Not Available [address], [address], 11/19/2023 13:51:53 11/19/1911/19/2023 DIREC T LDL direct [...] r is not marbin reddyy. Not Available [address], [address], 11/19/2023 13:51:54 04/23/20 24 04/23/2024 URINA LYSIS color DARK YELLOW yellow Not Available [address], [address], 04/23/2024 15:32:30 04/23/20 24 04/23/2024 URINA LYSIS clarity SLIGHT LY CLOUDY clear Not Available [address], [address], 04/23/2024 15:32:30 04/23/20 24 04/23/2024 URINA LYSIS glucose NEGATI VE negati ve Not Available [address], [address], 04/23/2024 15:32:30 04/23/20 24 04/23/2024 URINA LYSIS bilirubin 1+ negati ve abnormal Not Available [address], [address], 04/23/2024 15:32:30 04/23/20 24 04/23/2024 URINA LYSIS ketones TRACE negati ve abnormal Not Available [address], [address], 04/23/2024 15:32:30 04/23/20 24 04/23/2024 URINA LYSIS specific gravity 1.025 1.001- 1.035 Not Available [address], [address], 04/23/2024 15:32:30 04/23/20 24 04/23/2024 URINA LYSIS pH 5.5 5.0-8. 0 Not Available [address], [address], 04/23/2024 15:32:30 04/23/20 24 04/23/2024 URINA LYSIS protein 1+ negati ve abnormal Not Available [address], [address], 04/23/2024 15:32:30 04/23/20 24 04/23/2024 URINA LYSIS urobilinogen 0.2 E.U./D L <1.0 Not Available [address], [address], 04/23/2024 15:32:30 04/23/20 24 04/23/2024 URINA LYSIS nitrates POSITI VE negati ve abnormal Not Available [address], [address], 04/23/2024 15:32:30 04/23/20 24 04/23/2024 URINA LYSIS blood NEGATI VE negati ve Not Available [address], [address], 04/23/2024 15:32:30 04/23/20 24 04/23/2024 URINA LYSIS leukocytes 1+ negati ve abnormal Not Available [address], [address], 04/23/2024 15:32:30 04/23/20 24 04/23/2024 URINE , MICRO SCOPI C WBC 25-50 hpf 0-4/hp f Not Available [address], [address], 04/23/2024 16:05:00 04/23/20 24 04/23/2024 URINE , MICRO SCOPI C RBC 3-5 hpf 0-2/hp f Not Available [address], [address], 04/23/2024 16:05:00 04/23/20 24 04/23/2024 URINE , MICRO SCOPI C bacteria 2+ none seen Not Available [address], [address], 04/23/2024 16:05:00 04/23/20 24 04/23/2024 URINE , MICRO SCOPI C yeast NONE SEEN none seen Not Available [address], [address], 04/23/2024 16:05:00 04/23/20 24 04/23/2024 URINE , MICRO SCOPI C squamous epithelial cells 6 hpf 0-5 high Not Available [address], [address], 04/23/2024 16:05:00 04/23/20 24 04/23/2024 URINE , MICRO SCOPI C calcium oxalate crystals 3+ none seen Not Available [address], [address], 04/23/2024 16:05:00 04/23/20 24 04/23/2024 URINE , MICRO SCOPI C mucous NONE SEEN none seen Not Available [address], [address], 04/23/2024 16:05:00 04/23/20 24 04/27/2024 CULTU RE, URINE , ROUTI NE culture, urine, routine abnormal CULTU RE, URINE , ROUTI NE Micro Numbe r: [id number] Test Statu s: Final Speci men [...] lexin and lorac arbef . Not Available [facility] [address] [place] [address] B, [place], [address], 04/27/2024 14:23:35 05/15/20 24 05/15/2024 URINA LYSIS color YELLOW yellow Not Available [address], [address], 05/15/2024 16:36:40 05/15/20 24 05/15/2024 URINA LYSIS clarity CLEAR clear Not Available [address], [address], 05/15/2024 16:36:40 05/15/20 24 05/15/2024 URINA LYSIS glucose NEGATI VE negati ve Not Available [address], [address], 05/15/2024 16:36:40 05/15/20 24 05/15/2024 URINA LYSIS bilirubin 1+ negati ve abnormal Not Available [address], [address], 05/15/2024 16:36:40 05/15/20 24 05/15/2024 URINA LYSIS ketones TRACE negati ve abnormal Not Available [address], [address], 05/15/2024 16:36:40 05/15/20 24 05/15/2024 URINA LYSIS specific gravity 1.025 1.001- 1.035 Not Available [address], [address], 05/15/2024 16:36:40 05/15/20 24 05/15/2024 URINA LYSIS pH 6.0 5.0-8. 0 Not Available [address], [address], 05/15/2024 16:36:40 05/15/20 24 05/15/2024 URINA LYSIS protein 1+ negati ve abnormal Not Available [address], [address], 05/15/2024 16:36:40 05/15/20 24 05/15/2024 URINA LYSIS urobilinogen 1.0 E.U./D L <1.0 abnormal Not Available [address], [address], 05/15/2024 16:36:40 05/15/20 24 05/15/2024 URINA LYSIS nitrates NEGATI VE negati ve Not Available [address], [address], 05/15/2024 16:36:40 05/15/20 24 05/15/2024 URINA LYSIS blood NEGATI VE negati ve Not Available [address], [address], 05/15/2024 16:36:40 05/15/20 24 05/15/2024 URINA LYSIS leukocytes TRACE negati ve abnormal Not Available [address], [address], 05/15/2024 16:36:40 05/15/20 24 05/15/2024 URINE , MICRO SCOPI C WBC 2-4 hpf 0-4/hp f Not Available [address], [address], 05/15/2024 17:02:35 05/15/20 24 05/15/2024 URINE , MICRO SCOPI C RBC 0-2 hpf 0-2/hp f Not Available [address], [address], 05/15/2024 17:02:35 05/15/20 24 05/15/2024 URINE , MICRO SCOPI C hyaline casts 1 lpf 0-2 Not Available [address], [address], 05/15/2024 17:02:35 05/15/20 24 05/15/2024 URINE , MICRO SCOPI C bacteria TRACE none seen Not Available [address], [address], 05/15/2024 17:02:35 05/15/20 24 05/15/2024 URINE , MICRO SCOPI C yeast NONE SEEN none seen Not Available [address], [address], 05/15/2024 17:02:35 05/15/20 24 05/15/2024 URINE , MICRO SCOPI C squamous epithelial cells 3 hpf 0-5 Not Available [address], [address], 05/15/2024 17:02:35 05/15/20 24 05/15/2024 URINE , MICRO SCOPI C mucous NONE SEEN none seen Not Available [facility] [address] [facility], [place], [address], 05/15/2024 17:02:35 10/23/20 23 10/23/2023 US, retro [...] cysts. Readin suman Physic brendon: [facility] (Imaging) [address], [place], [address], 10/24/2023 07:40:14 11/19/19 24 11/07/2023 LDCT, chest , for lung cance r scree suzie No observ ation record ed. [facility]osit Imaging Dept [address] [place] [address], [address], 11/19/2023 10:17:36 11/19/19 24 11/19/2023 CT, chest No observ ation record ed. [facility] [address] [place] [address], [address], 12/03/2023 14:26:26 11/19/19 24 11/19/2023 CT, chest No observ ation record ed. [facility] Diagnosit Imaging Dept [address] [place], [address], 12/03/2023 14:26:27 04/30/20 24 04/30/2024 US, abdom [...] Readin g Physic brendon: Brad Bernal ms [facility] (Imaging) [address], [place], [address], 05/01/2024 09:17:50 Result Notes None recorded. Problems Name Problem SNOMED Code Status Onset Date Resolution Date Notes Provider Name and Address Organization Details Recorded Time Hyperten sive disorder 59996481 Completed 12/25/2016 Chhaya Sosa NP [address] [place] [address], [address] , [facility] 3 13:27:23 Tobacco user 609100168 Active Started smoking at 16 ; LDCT DUE Chhaya Sosa NP [address] [place] [address], [address] , [facility] 3 12:50:21 Chronic obstruct abigail pulmonar y disease 75299788 Active Chhaya Sosa NP [address] [place] [address], , [facility] 3 13:27:23 Costal chondrit is 34171451 Active Chhaya Sosa NP [address] [place] [address], , [facility] 3 13:27:23 Shoulder pain [id number] Cali Sosa NP [address] [place] [address], , [facility] 3 13:27:23 Morbid obesity 526011565 Active Chhaya Sosa NP [address] [place] [address], , [facility] 3 13:27:23 Major depressi ve disorder 173039605 Active F32.9 = no QUENTIN Score. Please code severity or remissio n level for a QUENTIN Score. Chhaya Sosa NP [address] [place] [address], , [facility] 3 13:27:23 Hyperlip idemia [id number] Cali Sosa NP [address] [place] [address], , [facility] 3 13:27:23 Anxiety 10676467 Cali Sosa NP [address] [place] [address], , [facility] 3 13:27:23 Unexplai gerardo weight loss [id number] Cali Sosa NP [address] [place] [address], , [facility] 3 13:27:23 Benign essentia l hyperten janay [id number] Cali Sosa NP [address] [place] [address], , [facility] 3 13:27:23 Dyspnea [id number] Cali Sosa NP [address] [place] [address], , [facility] 3 13:27:23 Standard chest X-ray abnormal [id number] Cali Sosa NP [address] [place] [address], [address] , [facility] 3 13:27:23 Hypercal cemia 98274322 Completed 201612/25/2016 Eunice Short NP [address] [place] [address], [address] , [facility] 7 13:16:19 Primary hyperpar athyroid ism 04213860 Active 2016 Chhaya Sosa NP [address] [place] [address], [address] , [facility] 3 13:27:23 Abdomina l aortic aneurysm 292384522 Active 05/2023 no change On ultrasou nd. 3cm on abd CT 11/2016. 3.7x3.7 cm on US 04/10/22 essentia lly stable from 10/03/21 (3.6x3.6 cm) Chhaya Sosa NP [address] [place] [address], , [facility] 3 20:31:55 Osteopen ia 607578506 Completed 201612/16/2019 Eunice Short NP [address] [place] [address], , [facility] 0 20:33:00 Knee pain Active 2016 Chhaya Sosa NP [address] [place] [address], , [facility] 3 13:27:23 Osteopor osis 72521300 Active 2019 Chhaya Sosa NP [address] [place] [address], , [facility] 3 13:27:23 Osteoart hritis of knee 653187637 Active 2020 Eunice Short NP [address] [place] [address], [address] , [facility] 1 18:32:43 Hyperten sive disorder 74412203 Active 2021 Chhaya Sosa NP [address] [place], [address] , [facility] 3 13:27:23 Vitamin D deficien cy 29206437 Active 2021 Chhaya Sosa NP [address] [place], [address] , [facility] 3 13:27:23 Adenomat ous polyp of colon 913822003 Active 2022 2020, repeat in 3 yrs Chhaya Sosa NP [address] [place], [address] , [facility] 3 16:46:35 Fracture of fibula 24298295 Active 01/31 left Chhaya Sosa NP [address] [place] [address], [address] , [facility] 3 10:21:52 Admissio n to retirement facility Active 08/0407/15/2024 an did Open reductio n internal fixation fx intertro shelleyi c. going to [facility]. 01/31 adm to [facility] for fx fibula Chhaya Sosa NP [address] [place] [address], [address] , [facility] 4 16:09:14 Fall Active 2023 [facility] D/C Demetrice Ringer null, [facility] 4 14:40:47 Intertro chanteri c fracture 323296743 Active 2023 [facility] D/C Demetrice Ringer null, [facility] 4 14:41:10 Fracture of femur 79842809 Active 2023 [facility] d/c Demetrice Ringer null, [facility] 4 09:38:54 Problem Notes None recorded. Procedures Surgical History Date Name Laterality Status Provider Name and Address Organization Details Recorded Time 12/01/19 25 Smoking cessation counseling cancelled ROYA Vanessa [facility] 11/30/2024 14:27:11 12/01/19 25 Medicare Wellness Visit cancelled Sera Livingston Yoselin [facility] 11/30/2024 14:26:21 09/15/20 24 Post hospital/SNF follow-up/Trans itional Care cancelled Talwendiyung [facility] 09/15/2024 10:22:13 02/21/20 19 Smoking cessation counseling completed Staci Barahona [facility] 02/20/2019 10:19:13 11/13/19 19 Smoking cessation counseling completed Jessenia Reynoso RN, BSN [facility] 11/13/2018 11:08:20 11/13/19 19 Carbon Monoxide Testing completed Jessenia Reynoso RN, BSN [facility] 11/13/2018 11:08:20 05/06/20 18 Smoking cessation counseling completed Flora Samuel RN [facility] 05/06/2018 10:51:44 05/06/20 18 Medicare Wellness Visit completed Flora Samuel RN [facility] 05/06/2018 10:51:33 05/06/20 18 Carbon Monoxide Testing completed Flora Samuel RN [facility] 05/06/2018 10:51:44 05/06/20 18 Advanced Care Planning completed Eunice Short NP [address] [place] [address], [address] 05/07/2018 21:10:04 09/27/20 17 Smoking cessation counseling completed Amelie Flood LPN [facility] 09/27/2017 15:44:31 09/27/20 17 Carbon Monoxide Testing completed Amelie Flood LPN [facility] 09/27/2017 15:44:31 08/13/20 17 Smoking cessation counseling completed Sera Livingston [facility] 08/13/2017 11:45:27 08/13/20 17 POC Urinalysis Testing completed Sera Livingston [facility] 08/13/2017 11:39:25 05/16/20 17 Smoking cessation counseling completed Nelly Burnette CMA [facility] 05/16/2017 13:26:24 05/16/20 17 Suture/staple Removal completed Eunice Short NP [address] [place], [address], [facility] 05/16/2017 14:01:29 04/29/20 17 Smoking cessation counseling completed Donna Gray [facility] 04/29/2017 12:04:30 04/29/20 17 Carbon Monoxide Testing completed Donna Gray [facility] 04/29/2017 12:04:30 04/12/20 17 Smoking cessation counseling completed Sirena Catalan [facility] 04/12/2017 08:33:57 04/12/20 17 Carbon Monoxide Testing completed Sirena Catalan [facility] 04/12/2017 08:45:15 03/25/20 17 Smoking cessation counseling completed Nelly Burnette [facility] 03/25/2017 11:14:27 03/25/20 17 Carbon Monoxide Testing completed Nelly Burnette [facility] 03/25/2017 11:19:34 03/12/20 17 [id number]: Therapeutic Exercise completed Paige Mccarty, PT [address] [place], [address], [facility] 03/12/2017 22:19:10 03/11/20 17 Smoking cessation counseling completed Isabella Spain [facility] 03/11/2017 09:20:38 03/11/20 17 Medicare Wellness Visit completed Isabella Spain [facility] 03/11/2017 09:20:04 03/11/20 17 Carbon Monoxide Testing completed Isabella Spain [facility] 03/11/2017 09:33:13 03/11/20 17 Medicare Risk for Falls Screen completed Isabella Spain [facility] 03/11/2017 09:28:14 02/19/20 17 [id number]: Therapeutic Exercise completed Paige Mccarty, PT [address], [place], [address], [facility] 02/19/2017 07:58:08 02/09/20 17 Smoking cessation counseling completed KIMBERLYN Ramos [address] [place], [address], [facility] 02/08/2017 16:42:38 02/09/20 17 POC Urinalysis Testing completed Evelyn Raphaelkatharinejose antonio [facility] 02/08/2017 16:22:27 01/01/20 17 Smoking Cessation Counselling completed Paige Mccarty, PT [address] [place], [address], [facility] 01/01/2017 10:09:35 01/01/20 17 [id number]: PT Eval, Moderate Complexity completed Paige Mccarty, PT [address] [place], [address], [facility] 01/02/2017 21:17:15 12/25/19 17 Smoking cessation counseling completed Nelly Burnette [facility] 12/25/2016 16:10:51 12/25/19 17 Carbon Monoxide Testing completed Nelly Burnette [facility] 12/25/2016 16:17:37 08/07/20 16 Smoking cessation counseling completed Nelly Burnette [facility] 08/07/2016 15:35:08 08/07/20 16 Carbon Monoxide Testing completed Nelly Burnette [facility] 08/07/2016 15:42:39 08/07/20 16 POC Urinalysis Testing completed Nelly Burnette [facility] 08/15/2016 15:26:49 07/06/20 16 Smoking cessation counseling completed [facility] 07/06/2016 10:38:50 07/06/20 16 Carbon Monoxide Testing completed [facility] 07/06/2016 10:54:18 06/22/20 16 70742: PT Evaluation completed Paige Mccarty, PT [address] [place], [address], [facility] 06/23/2016 22:35:11 06/08/20 16 [facility] 10:30:42 06/08/20 16 Carbon Monoxide Testing [facility] 06/08/2016 10:35:43 03/09/20 16 Smoking cessation counseling completed Nelly Burnette [facility] 03/09/2016 11:16:13 03/09/20 16 Medicare Wellness Visit completed Nelly Burnette [facility] 03/09/2016 11:15:14 03/09/20 16 Carbon Monoxide Testing completed Nelly Burnette [facility] 03/09/2016 11:30:10 03/09/20 16 Medicare Risk for Falls Screen completed Nelly Burnette [facility] 03/09/2016 11:30:34 07/28/20 15 Smoking cessation counseling completed Nelly Burnette [facility] 07/28/2015 11:00:21 03/07/20 15 Medicare Wellness Visit completed Jolly Baumann LPN [facility] 03/07/2015 14:58:35 02/02/20 15 Smoking cessation counseling completed Viviane Kebede [facility] 02/01/2015 11:51:54 Imaging Results Imaging Date Name Status LastModified by Organization Details LastModified Time 10/23/2023 US, retroperitoneum completed galo [facility]all [facility] (Imaging) [address], [place], [address], 10/24/2023 07:40:14 11/07/2023 LDCT, chest, for lung cancer screening completed [address] [facility] [address] [place] [address], [address], 11/19/2023 10:17:36 11/19/2023 CT, chest completed [facility] [address] [place] [address], [address], 12/03/2023 14:26:26 11/19/2023 CT, chest completed [facility] [address] [place] [address], [address], 12/03/2023 14:26:27 04/30/2024 US, abdominal aorta completed yas crockett [facility] (Imaging) [address] [place], [address], 05/01/2024 09:17:50 Procedure Notes None recorded. Medical Equipment None Reported. Allergies No known drug allergies Medications Name Sig Start Date Stop Date Status Note LastModified by Organization Details LastModified Time darrela case $12 MIRIXA CASE $12 03/11 completed Not Available Not Available Not Available Prescript ion - Clarifica tion 03/11 completed Silversc ript Not Available Not Available Not Available [email or web address] [...] Updated DateTime 11/13/2023 168.91 cm Amy Bentley [facility] 11/13/2023 11:30:54 Date Recorded Body mass index (BMI) Body weight Provider Name and Address Organization Details Last Updated DateTime 11/13/2023 37.9 kg/m2 000428.7 g Amy Bentley [facility] 11/13/2023 11:30:48 Date Recorded Heart rate Provider Name an d Address Organization Details Last Updated DateTime 11/13/2023 81 /min Amy Bentley [facility] 11/13/2023 11:39:34 Date Recorded Body height Provider Name an d Address Organization Details Last Updated DateTime 11/19/2023 168.91 cm Flora Quijano [facility] 11/19/2023 09:25:45 Date Recorded Heart rate Provider Name an d Address Organization Details Last Updated DateTime 11/19/2023 80 /min Flora Quijano [facility] 11/19/2023 09:27:48 Date Recorded Body height Provider Name an d Address Organization Details Last Updated DateTime 04/23/[address] [facility] 04/23/2024 11:24:41 Date Recorded Body height Provider Name an d Address Organization Details Last Updated DateTime 05/15/2024 168.91 cm [facility]15/[facility] 13:48:10 Date Recorded Heart rate Provider Name an d Address Organization Details Last Updated DateTime 05/15/2024 86 /min [facility] 05/15/2024 13:56:59 Date Recorded Body temperature Provider Name a nd Address Organization Details Last Updated DateTime 05/15/2024 99 [degF] ADARSH DANII , [facility] [address] [place], [address] 05/15/2024 15:51:00 Date Recorded Body height Provider Name an d Address Organization Details Last Updated DateTime 06/15/2024 168.[facility] 11:36:26 Date Recorded Body mass index (BMI) Body weight Provider Name and Address Organization Details Last Updated DateTime 06/15/2024 38.8 kg/m2 464982.54 g [facility]/15/2024 11:36:45 Date Recorded Heart rate Provider Name an d Address Organization Details Last Updated DateTime 06/15/2024 88 /min [facility]/15/2024 11:44:45 Date Recorded Systolic blood pressure Diastolic blood pressure Provider Name and Address Organization Details Last Updated DateTime 11/13/2023 97 mm[Hg] 69 mm[Hg] Amy Bentley LPN [facility] 11/13/2023 11:39:29 Date Recorded Systolic blood pressure Diastolic blood pressure Provider Name and Address Organization Details Last Updated DateTime 11/19/2023 114 mm[Hg] 78 mm[Hg] Flora Quijano [facility] 11/19/2023 09:28:48 Date Recorded Systolic blood pressure Diastolic blood pressure Provider Name and Address Organization Details Last Updated DateTime 04/23/2024 180 mm[Hg] 148 mm[Hg] Haley Sharma [facility] 04/23/2024 11:34:08 Date Recorded Systolic blood pressure Diastolic blood pressure Provider Name and Address Organization Details Last Updated DateTime 04/23/2024 180 mm[Hg] 92 mm[Hg] Coreen Franks [facility] 04/23/2024 12:07:54 Date Recorded Systolic blood pressure Diastolic blood pressure Provider Name and Address Organization Details Last Updated DateTime 04/23/2024 168 mm[Hg] 90 mm[Hg] Chhaya Sosa, PRODUCTION CONTROL ANALYST [address] [place] [address], [address], [facility] 04/23/2024 13:41:34 Date Recorded Systolic blood pressure Diastolic blood pressure Provider Name and Address Organization Details Last Updated DateTime 05/06/2024 127 mm[Hg] 68 mm[Hg] Margie [facility] 05/06/2024 16:02:42 Date Recorded Systolic blood pressure Diastolic blood pressure Provider Name and Address Organization Details Last Updated DateTime 05/15/2024 105 mm[Hg] 68 mm[Hg] [facility] 05/15/[facility] 13:56:54 Date Recorded Systolic blood pressure Diastolic blood pressure Provider Name and Address Organization Details Last Updated DateTime 06/15/2024 120 mm[Hg] 74 mm[Hg] Sera Livingston [facility] 06/15/2024 11:46:10 Social History Question Answer Notes LastModified by Organizat ion Details LastModified Time Tobacco Smoking Status Current Every Day Smoker smokes less 1/2 ppd11-1- --23 less then 1/2 pack a day 1-3-24 6 cig a day COLBY Day, [facility] 11/13/2023 11:37:21 Do You Have An Advance Directive? Yes Daughter Magno Castellon [phone] Information not available 03/08/2015 What Is Your Level Of Alcohol Consumption? None 04/12/17 Information not available 04/12/2017 What Is Your Level Of Caffeine Consumption? Moderate 2 Cups A Day Information not available 09/29/2021 What Type Of Diet Are You Following? REGULAR [email or web address] Information not available 09/06/2014 Which Illicit Or Recreational Drugs Have You Used? None 04/12/17 Information not available 04/12/2017 Education 12 [email or web address] Information no t available 09/06/2014 What Is Your Occupation? Disabled 2000 Due To Knee Arthritis Information not available 09/06/2014 Do You Use Insect Repellent Routinely? No Information not available 09/29/2021 Live Alone Or With Others? Alone [email or web address] Information not available 09/06/2014 Does The Patient Have Difficulty Speaking French? No [email or web address] Information not available 09/06/2014 Does The Patient Have Difficulty Reading French? No [email or web address] Information not available 09/06/2014 Patient Has Health Care Proxy Signed And In Chart Yes Daughter Magno, Copy In Chart [email or web address] Information not available 09/06/2014 MOLST Form Signed And In Chart 02/08/2023 Information not available 03/05/2023 CCM Consent Discussion 03/12/2023 Information not available 03/14/2023 Marital Status [email or web address] Informatio n not available 09/06/2014 Mosquito Repellent Used Routinely No Information not available 09/06/2014 What Was The [...] available 09/29/2021 Seat Belts Used Routinely Yes [email or web address] Information not available 09/06/2014 Are You Sexually Active? No [email or web address] Information not available 09/06/2014 Smoke Alarm In Home Yes [email or web address] Information not available 09/06/2014 Do You Have Smoke And Carbon Monoxide Detectors In Your Home? Yes Information not available 09/29/2021 At What Age Did You Start Smoking Tobacco? 16 [email or web address] Information not available 09/06/2014 Are You Passively Exposed To Smoke? Yes Information not available 09/29/2021 How Much Tobacco Do You Smoke? 0.5 PPD [email or web address] Information not available 05/28/2022 General Stress Level Medium [email or web address] Information not available 09/06/2014 Do You Use Sunscreen Routinely? No [email or web address] Information not available 09/06/2014 Do You Or [...] Brother Malignant tumor of lung 60 in assisted Not available 09/06/2014 14:22:23 Brother Motor vehicle [...] conjugate PCV 13 6 completed Not Available [facility] 11/28/2019 02:29:50 influenza, unspecified formulation 4 completed Not Available [facility] 02/07/2023 18:15:23 pneumococcal polysaccharide PPV23 2 completed Not Available [facility] 02/07/2023 18:15:23 influenza, unspecified formulation 2 completed Not Available [facility] 02/07/2023 18:15:23 influenza, unspecified formulation 3 completed Not Available [facility] 02/07/2023 18:15:23 zoster live 2 completed Not Available [facility] 02/07/2023 18:15:23 influenza, unspecified formulation 5 completed Not Available [facility] 02/07/2023 18:15:23 Tdap 5 completed Not Available [facility] 02/07/2023 18:15:23 Pneumococcal conjugate PCV 13 6 completed Not Available [facility] 02/07/2023 18:15:23 influenza, unspecified formulation 6 completed Not Available [facility] 02/07/2023 18:15:23 pneumococcal polysaccharide PPV23 7 completed Not Available [facility] 02/07/2023 18:15:23 influenza, unspecified formulation 7 completed Not Available [facility] 02/07/2023 18:15:23 influenza, unspecified formulation 8 completed Not Available [facility] 02/07/2023 18:15:23 Influenza, split virus, quadrivalent, preservative 9 completed Not Available [facility] 02/07/2023 18:15:23 zoster recombinant 9 completed Not Available [facility] 02/07/2023 18:15:23 Influenza, split virus, quadrivalent, preservative 0 completed Not Available [facility] 02/07/2023 18:15:23 Influenza, high-dose, quadrivalent, PF 2 completed NANDINI Abdullahi [address] [place] [address], [address], [facility] 08/13/2022 14:53:00 COVID-19, mRNA, LNP-S, PF, 30 mcg/0.3 mL dose 1 completed Not Available [facility] 02/07/2023 18:15:23 COVID-19, mRNA, LNP-S, PF, 30 mcg/0.3 mL dose 1 completed Not Available [facility] 02/07/2023 18:15:23 Influenza, high-dose, quadrivalent, PF 3 completed Jude Snowden MD [address] [place], [address], [facility] 07/31/2023 17:03:12 Influenza, high-dose, quadrivalent, PF 1 completed Not Available [facility] 02/07/2023 18:15:23 Past Encounters Encounter ID Performer Location Encounter Start Date Encounter Closed Date Diagnosis/Indication Diagnosis SNOMED-CT Code Diagnosis ICD10 Code Diagnosis Note [id number] FP, [facility], OFFICE [address] [place] [address] 09/06/2014 13:00:24 09/06/2014 14:33:47 Hypertensive disorder 85460183 Tobacco user 330629152 Chronic ob structive pulmonary disease 70914249 Costal chondritis 48197063 [id number] Jolly Baumann LPN FP, [facility], OFFICE [address] [place] [address] 6 09/27/2014 11:04:03 09/27/2014 11:58:24 Hypertensive disorder 61110148 Shoulder pain 40690986 [id number] Nelly Burnette CMA FP, [facility], OFFICE [address] [place] [address] 6 10/11/2014 11:22:07 10/11/2014 13:51:32 Hypertensive disorder 68798704 Tobacco user 152544786 Shoulder pain 06961701 [id number] Eunice Short NP FP, [facility], OFFICE [address] [place] [address] 11/01/2014 10:59:51 11/01/2014 11:41:21 Hypertensive disorder 86162564 Shoulder pain 06452247 Tobacco user 025797398 [id number] Viviane Kebede CMA FP, [facility] OFFICE [address] [place] [address] 6 12/06/2014 09:58:29 12/06/2014 10:57:34 Hypertensive disorder 94494888 Morbid obesity 773083935 Tobacco user 616199482 Chronic ob structive pulmonary disease 32023626 [id number] Eunice Short NP FP, [facility] OFFICE [address] [place] [address]852 6 01/04/2015 13:51:17 01/04/2015 15:24:56 Hypertensive disorder 48781142 Tobacco user 259674927 Shoulder pain 49218510 [id number] Jolly Baumann LPN FP, [facility] OFF[facility] [address] [place] [address] 6 02/01/2015 11:29:20 02/01/2015 12:34:46 Benign essential hypertension 2766973 Blood pressure at goal Tobacco user 327306582 Major depr essive disorder 491499264 Morbid obesity 864250304 [id number] Graciela BREAUX, [facility] OFFICE [address] [place] [address] 6 03/07/2015 14:33:45 03/07/2015 15:38:53 Adult health examination [id number] see Risk Assessment and Lifestyle Change Counseling section above Counseling 159517371 Administra tion of diphtheria, pertussis, and tetanus vaccine 434888085 Tobacco user 664072011 Shoulder pain 16613360 Administra tion of bacterial and viral vaccine 634690204 Morbid obesity 512100284 Major depr essive disorder 141209103 Hyperlipidemia 41042386 Lipids in normal range, but CVD risk 25% due to smoking and HTN. In addition is obese and sedentary lifestyle increasing risk further. Therefore could benefit from statin therapy. [id number] Eunice Short NP FP, [facility] OFF[facility] [address] [place] [address] 6 07/28/2015 10:37:43 07/28/2015 11:29:31 Lifestyle 314480588 Tobacco user 567773043 Anxiety 11611327 [id number] Eunice Short NP FP, [facility] OFFICE [address] [place] [address] 6 09/07/2015 13:59:43 09/07/2015 14:45:35 Chronic obstructive pulmonary disease 80022710 J44.9 [id number] YAMILETH Christianson, [facility] OFF[facility] [address] [place] [address] 6 09/09/2015 14:41:26 09/09/2015 15:19:44 Benign essential hypertension 3436704 I10 Blood pressure at goal Mixed hyperlipidemia 267 793688 E78.2 Continue to work on diet and exercise as discussed Tobacco user 888718042 Z 72.0 Chronic ob structive pulmonary disease 61699619 J44.9 [id number] YAMILETH Christianson, [facility] OFF[facility] [address] [place] [address] 6 03/09/2016 10:55:03 03/09/2016 12:23:53 Morbid obesity 968939998 E66.01 Major depr essive disorder 669999109 F32.9 Chronic ob structive pulmonary disease 76701082 J44.9 Adult [facility] th examination 739971369 Z00.00 see Risk Assessment and Lifestyle Change Counseling section above Counseling 450698679 Z71 .9 Mixed hyperlipidemia 267 253011 E78.2 Cholestero l is at goal Continue to work on diet and exercise as discussed Nicotine dependence 5629 4008 Z87.891 Tobacco user 664110960 Z 72.0 Hyperlipidemia 80281998 E78.5 Active or passive immunization 787687372 Z23 Unexplaine d weight loss 442945180 R63.4 [id number] YAMILETH Christianson, [facility] [address] [place] [address] 6 03/15/2016 15:00:37 03/15/2016 15:57:06 Benign essential hypertension 7169131 I10 Morbid obesity 513339674 E66.01 Dyspnea 992308220 R06.00 Tobacco user 675897006 Z 72.0 [id number] YAMILETH Christianson, [facility] OFFICE [address] [place] [address] 6 04/26/2016 11:27:30 04/26/2016 12:35:10 Acute upper respiratory infection 02061158 J06.9 Educated patient that URI is a [...] to resolve in 2-4 weeks. Acute bronchitis 6377120 2 J20.9 [id number] Eunice Short NP FP, [facility] OFF[facility] [address] [place] [address] 6 06/08/2016 10:25:28 06/08/2016 11:14:21 Benign essential hypertension 9700731 I10 Blood pressure at goal Cigarette smoker 3088835 7 F17.210 Tobacco user 372950282 Z 72.0 Major depr essive disorder 610775598 F32.9 Osteopenia 309020151 M85 .80 [id number] Paige Mccarty, PT Physical Therapy, [address] [address] 06/22/2016 15:00:50 06/25/2016 07:43:41 Knee pain 01433883 M25.569 Low back pain 117599825 M54.5 Abnormal gait 07060542 R 26.9 [id number] Eunice Short NP FP, [facility] [address] [place] [address] 6 07/06/2016 10:36:56 07/06/2016 11:12:26 Tobacco user 869177533 Z72.0 Cigarette smoker 6195471 7 F17.210 hopefully PA hattie Rai will be approved Major depr essive disorder 412710454 F32.9 stable on sertraline Benign ess ential hypertension 7141125 I10 Blood pressure not at goal. Resume Benicar HCT and FU in 4-6 wks to recheck. Abdominal pain 64042178 R10.9 [id number] Nelly Burnette CMA FP, [facility] OFF[facility] [address] [place] [address]96[address] 6 08/07/2016 15:32:02 08/07/2016 16:51:27 Benign essential hypertension 0524152 I10 Blood pressure at goal, continue current meds. on 3 agents. Cigarette smoker 9099485 7 F17.210 Plans to start the Chantx next month Tobacco user 970408469 Z 72.0 Urinary tr act infectious disease 62320913 N39.0 Patient instructed to push fluids, to follow up for persistent or worsening symptoms or fever or back pain. [id number] Eunice Short NP FP, [facility] [address] [place] [address]74[address] 6 09/10/2016 16:29:26 09/10/2016 17:04:55 Shoulder pain 11127529 M25.512 Benign ess ential hypertension 5162339 I10 Blood pressure at goal Tobacco user 888618235 Z 72.0 Abdominal pain 29920023 R10.9 FU GI as planned. [id number] Eunice Short NP FP, [facility] [address] [place] [address] 48[address]472 6 12/25/2016 16:04:41 12/26/2016 12:46:08 Cigarette smoker 67239084 F17.210 Tobacco user 134548973 Z 72.0 Multifacto rial gait problem 333498502 R26.89 Multiple renal cysts 253 825081 N28.1 Abdominal aortic aneurysm without rupture 10410215 I71.4 [id number] Paige Mccarty, PT Physical Therapy, [address] [address] 01/01/2017 09:45:00 01/03/2017 08:02:33 Knee pain 75343923 M25.322 [id number] KIMBRELYN Ramos FP, [facility] OFFICE [address] [place] [address] 34063-862 6 02/08/2017 16:21:33 02/11/2017 10:05:50 Urinary tract infectious disease 09624372 N39.0 -Bactrim as directed-c ulture pending-fl uids-follo w up if no improvemen t in 3 days-prope r whipping technique- cotton underwear Cigarette smoker 8148698 7 F17.210 -start using the patches-gu ms as needed Tobacco user 888641725 Z 72.0 [id number] Paige Mccarty, PT Physical Therapy, [address] [address] 02/18/2017 17:06:31 02/19/2017 09:47:16 Knee pain 69921634 M25.569 Low back pain 051830613 M54.5 Abnormal gait 07799831 R 26.9 [id number] Eunice Short NP FP, [facility] OFFICE [address] [place] [address] 47366[address] 6 03/11/2017 09:17:31 03/11/2017 10:05:00 Adult health examination 330991026 Z00.00 see Risk Assessment and Lifestyle Change Counseling section above Counseling 083662632 Z71 .9 Cigarette smoker 4836392 7 F17.210 Tobacco user 053487986 Z 72.0 Benign ess ential hypertension 0593532 I10 Blood pressure NOT at goal. Mixed hyperlipidemia 267 856882 E78.2 continue atorvastat in. Primary hyperparathyroidism 77537773 E21.0 [id number] Paige Mccarty, PT Physical Therapy, [address] [address] 03/12/2017 16:24:31 03/13/2017 07:11:43 Low back pain 017931818 M54.5 Knee pain 55018126 M25.5 69 Abnormal gait 24104461 R 26.9 [id number] YAMILETH Christianson, [facility]ICE [address] [place] [address] 83118-[address] 6 03/25/2017 11:08:57 03/25/2017 11:56:01 Benign essential hypertension 0416858 I10 Blood pressure at goal Cigarette smoker 9033198 7 F17.210 Tobacco user 883174449 Z 72.0 [id number] Jude Snowden MD Endocrino logy, [address] [address] 04/12/2017 08:30:36 04/12/2017 09:23:12 Cigarette smoker 01732008 F17.210 Tobacco user 980475379 Z 72.0 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 Replace mouthpiece and twist the top and bottom so that markings do not line up. Clean mouthpiece regularly with soap and water Primary hyperparathyroidism 25340974 E21.0 -labs and bone density 11/28, follow up Dr. Snowden 12/29 Vitamin D deficiency 347 55019 E55.9 -calcium tabs 2 times daily by mouth 315 mg - 250units d [id number] Marily Brownlee MD , [facility] OFFICE [address] [place] [address] 82923[address] 6 04/29/2017 11:22:19 04/29/2017 12:49:35 Cigarette smoker 14493378 F17.210 Tobacco user 579276448 Z 72.0 Screening mammography 24 997497 Z12.31 Osteoarthr itis of knee 191694091 M17.0 Shoulder pain 72819295 M 25.732 [id number] Eunice Short NP , [facility] [address] [place] [address] 05/16/2017 13:24:19 05/16/2017 15:09:41 Cigarette smoker 51655400 F17.210 Tobacco user 205596616 Z 72.0 Facial laceration 025663 008 S01.81XA Gastroesop hageal reflux disease 831313294 K21.9 Morbid obesity 970550211 E66.01 Knee pain 27449833 M25.5 69 Bilateral, worse on R. [id number] Wendy Hopson NP , [facility] [address] [place] [address] 08/13/2017 11:37:38 08/13/2017 14:13:52 Urinary tract infectious disease 58908546 N39.0 Patient instructed to push fluids, to follow up for persistent or worsening symptoms or fever or back pain. Cigarette smoker 7546653 7 F17.210 not ready to quit. has patch at home and will consider starting it Tobacco user 665897351 Z 72.0 [id number] Eunice Short NP FP, [facility] OFFICE [address] [place] [address]16[address] 6 09/27/2017 15:21:15 09/27/2017 16:18:53 Benign essential hypertension 3799229 I10 Blood pressure at goal Cigarette smoker 8011439 7 F17.210 Tobacco user 698032407 Z 72.0 Knee pain 04104522 M25.5 69 Bilateral, worse on R. Chronic ob structive pulmonary disease 03875575 J44.9 [id number] Eunice Short NP , [facility], OFFICE [address] [place] [address] 6 05/06/2018 10:36:03 05/06/2018 11:50:31 Adult health examination 445054778 Z00.00 see Risk Assessment and Lifestyle Change Counseling section above Counseling 893736488 Z71 .9 Depression screening 171 225492 Z13.89 depression screening tool administer ed, entered into emr, scored and discussed, time greater than 7.5 minutes Advance di rective discussed with patient 480728028 Z71.89 Cigarette smoker 2114118 7 F17.210 Tobacco user 960324283 Z 72.0 Hyperlipidemia 50753439 E78.5 Benign ess ential hypertension 7573199 I10 Blood pressure at goal Primary hyperparathyroidism 62646401 E21.0 [id number] Eunice Short NP , [facility], OFFICE [address] [place] [address]31[address]362 6 11/13/2018 11:05:40 11/13/2018 11:44:52 Benign essential hypertension 5335388 I10 Blood pressure at goal Cigarette smoker 5398404 7 F17.210 Tobacco user 968606139 Z 72.0 Candidal intertrigo 2661 68869 B37.2 Chronic ob structive pulmonary disease 83445275 J44.9 Morbid obesity 085463195 E66.01 Primary hyperparathyroidism 27078828 E21.0 Major depr essive disorder 339665918 F32.9 stable on sertraline [id number] Jake Jimenez PA-C FP, [facility], OFFICE [address] [place] [address]150[address] 6 02/20/2019 10:16:21 02/20/2019 13:33:48 Cigarette smoker 14594643 F17.210 Discussed and encourage smoking cessation. Patient contemplat ing but not ready. Encourage follow up if needing assistance with this. Abdominal aortic aneurysm without rupture 12531364 I71.4 NO abdominal pain has had up to date imaging. Will contact us if any issues. Intramuscu lar contusion 744571252 T14.8XXA Refer to discussion section for complete summary of visit. [id number] Eunice Short NP , [facility], OFFICE [address] [place] [address] 06/04/2019 11:08:40 06/04/2019 12:13:47 Adult health examination 730575671 Z00.00 see Risk Assessment and Lifestyle Change Counseling section above Counseling 588794821 Z71 .9 Advance di rective discussed with patient 154147190 Z71.89 Mixed hyperlipidemia 267 605812 E78.2 continue atorvastat in. Cigarette smoker 9864823 7 F1.210 Tobacco user 554635619 Z 72.0 Urinary tr act infectious disease 73396051 N39.0 Patient instructed to push fluids, to follow up for persistent or worsening symptoms or fever or back pain. Screening mammography 24 835985 Z12.31 Benign ess ential hypertension 3438239 I10 Blood pressure at goal [id number] Vicky Avendaño PA-C , [facility], OFFICE [address] [place] [address] 06/19/2019 17:07:14 06/24/2019 15:07:53 Urinary tract infectious disease 30181328 N39.0 - starting new antibiotic and sending for culture, minimal improvemen t with macrobid- Patient instructed to push fluids, to follow up for persistent or worsening symptoms or fever or back pain. Cigarette smoker 5656495 7 F17.210 - not ready to quit cigars Tobacco user 011325388 Z 72.0 [id number] Eunice Short NP , [facility], OFFICE [address] [place] [address] 12/16/2019 15:29:54 12/18/2019 14:21:58 Essential hypertension 57842850 I10 Mixed hyperlipidemia 267 329948 E78.2 Cholestero l is at goal Cholestero l is not at goal Continue to work on diet and exercise as discussed Cigarette smoker 4404790 7 F17.210 Tobacco user 461468199 Z 72.0 Poor balance 293906320 R 27.8 Osteoporosis 41949229 M8 1.0 BMD test 05/2018 Chronic ob structive pulmonary disease 94398364 J44.9 Morbid obesity 028785840 E66.01 Primary hyperparathyroidism 51484611 E21.0 [id number] Eunice Short NP , [facility], OFFICE [address] [place] [address]277[address]282 6 06/09/2020 11:18:53 06/10/2020 15:13:48 Major depressive disorder 185732468 F32.9 stable on sertraline , see PHQ9 Adult heal th examination 994345678 Z00.00 see Risk Assessment and Lifestyle Change Counseling section above Counseling 045591952 Z71 .9 including cardiovasc ular risk reduction counseling Depression screening 171 138091 Z13.89 depression screening tool administer ed, entered into emr, scored and discussed, time greater than 7.5 minutes. Negative screening reviewed with patient. Screening for alcohol abuse 850335142 Z13.39 no alcohol at all Benign ess ential hypertension 5750746 I10 Hyperlipidemia 48737614 E78.5 Anxiety 76692268 F41.9 Essential hypertension 38918255 I10 Mixed hyperlipidemia 267 368461 E78.2 on atorvastat in Cigarette smoker 1043691 7 F17.210 Tobacco user 136054020 Z 72.0 Tinea corporis 45996941 B35.4 [id number] Pino Ureña MD , [facility], OFFICE [address] [place] [address] 6 04/18/2020 14:44:16 04/19/2020 09:35:28 Urinary tract infectious disease 11828709 N39.0 Patient instructed to push fluids, to follow up for persistent or worsening symptoms or fever or back pain. Use the antibiotic . [id number] Vicky Avendaño PA-C , [facility], OFFICE [address] [place] [address] 6 10/21/2020 11:57:39 10/21/2020 15:23:14 Cigarette smoker 27670289 F17.210 -intereste d in quitting -limited success in the past with patches and gum/lozeng e -recommend nicotrol inhaler, patient expresses interest, advised about cost/unkno wn insurance coverage Injury of hand 786229486 S69.91XA -acute injury of right hand secondary to fall -will xray -advised RICE, NSAIDS/tyl enol for pain relief Injury of knee 009141609 S89.92XA -acute injury of left knee secondary to fall -will xray -advised RICE, NSAIDs/tyl enol for pain relief Injury of nose 53860339 S09.92XA -acute injury of nose secondary to fall -low suspicion for fracture of nasal bones, patient reports structure of nose does not appear changed -will xray -advised ice, NSAIDs/tyl enol for pain relief -return precaution s reviewed [id number] Vicky Avendaño PA-C FP, [facility], OFFICE [address] [place] [address] 10/26/2020 12:05:06 10/27/2020 15:44:13 Injury of hand 064258915 S69.91XA -acute injury of right hand secondary to fall, subsequent encounter -x-ray showed no evidence of fracture, reviewed with pt -advised RICE and tylenol for pain relief Injury of knee 306833720 S89.92XA -acute injury of left knee secondary to fall, subsequent encounter -x-ray showed no evidence of fracture, reviewed with pt -advised RICE and tylenol for pain relief Injury of nose 07977284 S09.92XA -acute injury of nose secondary to fall, subsequent encounter -x-ray showed non-displa florencia fracture, no cosmetic changes, reviewed with pt -advised ice and tylenol for pain relief -return precaution s reviewed [id number] Eunice Short NP FP, [facility], OFFICE [address] [place] [address] 01/19/2021 10:45:26 01/20/2021 14:27:22 Benign essential hypertension 7660492 I10 Morbid obesity 560110978 E66.01 Cigarette smoker 3902158 7 F17.210 Tobacco user 098098392 Z 72.0 Primary hyperparathyroidism 47161361 E21.0 Will check calcium q 6months. Chronic ob structive pulmonary disease 38612749 J44.9 At high risk for fall 45 55995021 84296947 Z91.89 Has fall alarm, power chair, wheelchair for in home use and walker. [id number] Wendy Hopson NP , [facility], OFFICE [address] [place] [address]42[address] 6 02/24/2021 14:22:54 02/27/2021 15:49:47 Backache 899061198 M54.9 left sided back ache x5 days. [...] phone. no distress or fever Cigarette smoker 1482675 7 F17.210 not ready to quit. has patch at home and will consider starting it Tobacco user 151967415 Z 72.0 [id number] Chhaya Sosa NP , [facility], OFFICE [address] [place] [address] 6 03/02/2021 17:10:00 03/06/2021 16:06:09 Tobacco user 809816880 Z72.0 Abdominal pain 44820352 R10.9 -reassuran ce as the pain seems to be musculoske letal-tyle nol 1000 mg every 8 hours as needed-alexia l with any worsening pain or if you want to do PT [id number] ARLENE MENENDEZ MD , [facility], OFFICE [address] [place] [address] 6 09/29/2021 13:09:22 09/29/2021 14:07:17 Adult health examination 250062883 Z00.00 see Risk Assessment and Lifestyle Change Counseling section above Counseling 005626069 Z71 .9 including cardiovasc ular risk reduction counseling Depression screening 171 773972 Z13.31 depression screening tool administer ed, entered into emr, scored and discussed, time greater than 7.5 minutes Screening for alcohol abuse 426754037 Z13.39 no alcohol at all Anxiety 03862161 F41.9 controlled , continue meds Benign ess ential hypertension 1264229 I10 Chronic ob structive pulmonary disease 33336635 J44.9 Discussed smoking cessation x 3 m., not ready to quit at this time Morbid obesity 684327697 E66.01 discussed portion control. pt not able to exercise meaningful ly due to shortness of breath and knee pain with weight bearing. Osteoporosis 93789044 M8 1.0 BMD test 05/2018 - just had BMD couple of weeks ago at [place], awaiting results. Tobacco user 450221171 Z 72.0 see above Essential hypertension 66949301 I10 continue current regimen Mixed hyperlipidemia 267 247881 E78.2 Cholestero l is at [facility] to work on diet and exercise as discussed Cigarette smoker 5084397 7 F17.210 Major depr essive disorder 553489389 F32.0 Abdominal aortic aneurysm without rupture 76597550 I77.811 recheck abd aorta, small ectasia 3 cm on last US, I can't find CT results. [id number] Eunice Short NP , [facility], OFFICE [address] [place] [address] 09/07/2021 14:42:55 09/07/2021 15:50:48 Hyperlipidemia 37133605 E78.5 Essential hypertension 86443705 I10 Tobacco user 123788122 Z 72.0 > 30 pack yr history, Yrly LDCT screening for lung cancer - last done 10/2020 Primary hyperparathyroidism 86818286 E21.0 Will check calcium q 6months. Osteoporosis 96918410 M8 1.0 BMD test 05/2018 Chronic ob structive pulmonary disease 97592357 J44.9 Major depr essive disorder 601653606 F32.9 stable on sertraline , see PHQ9 Benign ess ential hypertension 4343532 I10 [id number] ARLENE MENENDEZ MD , [facility], OFFICE [address] [place] [address] 04/06/2022 14:18:57 04/06/2022 15:33:08 Morbid obesity 725136883 E66.01 discussed portion control. pt not able to exercise meaningful ly due to shortness of breath and knee pain with weight bearing.Di scussed Harley Behaviors for Weight Loss: - Track intake using food diary - may use [employer] al or written journal - Measure out [...] , Relevant, and Time-sensi tive) Primary hyperparathyroidism 46669898 E21.0 did not want to see endocrinol ogist, but since she has worsening osteoporos is, to reduce risk of fracture, I recommend seeing Dr. Snowden. She now agrees Major depr essive disorder 905366247 F32.0 controlled on sertraline Abdominal aortic aneurysm without rupture 50450935 I77.811 latest 09/2021 3.6 cm increased from 3 cm. Repeat now. Chronic ob structive pulmonary disease 94415963 J44.9 Discussed smoking cessation x 3 m., not ready to quit at this timecontin ue LDCT yearly at [facility] Essential hypertension 90429135 I10 continue current regimen Tobacco user 789444698 Z 72.0 see above Osteoporosis 23352443 M8 1.8 worsening. Check PTH and refer to endocrinol ogist [id number] NANDINI Abdullahi , [facility], OFFICE [address] [place] [address] 05/29/2022 17:36:30 05/31/2022 11:36:05 Urinary tract infectious disease 84898543 N39.0 - symptoms and POC UA consistent [...] or persistent symptoms Increased frequency of urination 761121860 R35.0 Benign ess ential hypertension 3709759 I10 BP above goalencour aged to set up BP check once feeling better COVID-19 802569378 U07.1 pos 05/25, symptom onset 6 days agodiscuss ed no longer a candidate for paxlovid, given she's feeling better she's also deferred Mab infusion txcontinue OTC care [id number] NANDINI Abdullahi FP, [facility], OFFICE [address] [place] [address] 06/29/2022 14:08:51 06/29/2022 14:42:11 Tobacco user 288692443 Z72.0 1/2 ppd mini cigars, not interested in quitting at this time Benign ess ential hypertension 2124745 I10 BP above goalincrea se diltiazem to 240mg, continue olmesartan /HCTZ 40/25mgf/u in a couple weeks to reassess, encouraged home readings and logging in the interim Chronic ob structive pulmonary disease 11147206 J44.9 lungs CTA today, not using combivent often/does n't feel she needs to Morbid obesity 593084039 E66.01 limited exercise due to knee arthritisr eviewed healthy eating habits [id number] NANDINI Abdullahi FP, [facility], OFFICE [address] [place] [address] 08/13/2022 14:16:08 08/20/2022 15:26:04 Tobacco user 123245370 Z72.0 1/2 ppd mini cigars, not interested in quitting at this timecessat ion discussed and encouraged Active or passive immunization 015386145 Z23 will do flu vaccine today Benign ess ential hypertension 8381139 I10 BP still above goal though improved from last visitincre ase diltiazem to 300mg, continue olmesartan /HCTZ 40/25mgBP cuff sent to karlene to start home checksf/u in 1 month to reassess Morbid obesity 509870531 E66.01 limited exercise due to knee arthritisr eviewed healthy eating habits [id number] Chhaya Sosa NP FP, [facility], OFFICE [address] [place] [address] 12/27/2022 13:31:55 12/27/2022 14:22:40 Adult health examination 702983002 Z00.00 Depression screening 171 757941 Z13.31 depression screening tool administer ed Screening for alcohol abuse 836348125 Z13.39 Alcohol use screening tool administer ed Essential hypertension 07506996 I10 After a discussion of treatment and medication options, which included considerat ion of the best practices in medicine, a medical plan was provided. The patient's opinions and concerns were included in this treatment plan and goal. 1. Discussed Blood Pressure goals. 2. BP GOAL is under 130/80. Pt is NOT at goal. Morbid obesity 333256267 E66.01 - -Work on healthy eating, weight loss, and exercise-C all if you want to see the nutritioni Major depr essive disorder 308039677 F32.0 -STABLE on meds Chronic ob structive pulmonary disease 37739034 J44.9 -stable on meds Tobacco user 940272935 Z 72.0 We discussed your smoking today for more than 3 minutes. Cigarette use is the leading cause of preventabl e disease, disability , and in the [place]. We talked about tools and medication s available to help you in smoking cessation. We discussed utilizing our smoking cessation assistant baseball coach and online resources. Counseled by member of primary health care team 287602877 Z71.9 Today we discussed ways to reduce [...] well controlled cholestero l (LDL and triglyceri ojn) by eating a healthy diet and taking medication s when necessary. Managing daily stress with meditation or yoga. Depending on your other cardiovasc ular risks your practition er may recommend taking daily aspirin. Hypercalciuria 89426902 R82.994 -check labs [id number] Chhaya Sosa NP FP, [facility], OFFICE [address] [place] [address] 03/12/2023 16:01:01 03/18/2023 08:17:41 Pain of left breast 9111918823 N64.4 Tobacco user 643025685 Z 72.0 We discussed your smoking today for more than 3 minutes. Cigarette use is the leading cause of preventabl e disease, disability , and in the [place]. We talked about tools and medication s available to help you in smoking cessation. We discussed utilizing our smoking cessation assistant baseball coach and online resources. Your personal goal: declines Gastroesop hageal reflux disease 025929858 K21.9 restart meds and follow up in 1 month Benign ess ential hypertension 5383058 I10 After a discussion of treatment and [...] . Follow up in 1 months. Dysuria 04100002 R30.0 Atopic dermatitis 437680 01 L20.9 [id number] Chhaya Sosa NP FP, [facility], OFFICE [address] [place] [address] 05/02/2023 10:09:52 05/02/2023 10:58:36 Tobacco user 312016494 Z72.0 We discussed your smoking today for more than 3 minutes. Cigarette use is the leading cause of preventabl e disease, disability , and in the [place]. We talked about tools and medication s available to help you in smoking cessation. We discussed utilizing our smoking cessation assistant baseball coach and online resources. Active or passive immunization 570945190 Z23 shingles- reminded Screening for malignant neoplasm of colon 779028538 Z12.11 declines Dysuria 09846623 R30.0 Patient with urinary symptoms.U RAJ TO DO URINE AND SHE WILL TAKE HOME Tr Kaur send urine for culture.Di scussed supportive and preventive measures.P atient instructed to follow up if not better or with new symptoms. Pulmonary emphysema 8743 3001 J43.9 -Patient was validated and supported in ongoing smoking cessation Vitamin D deficiency 347 95959 E55.9 Hyperparathyroidism 6699 9008 E21.3 Pain of le ft knee joint 8005912899 37314 M25.876 [id number] YAMILETH Negro, [facility], OFFICE [address] [place] [address] 05/30/2023 11:53:26 05/30/2023 12:41:44 Active or passive immunization 599730112 Z23 shingles- reminded Screening for malignant neoplasm of colon 643095188 Z12.11 Referral for a DIRECT booked colonoscop y. This patient is a healthy ASA Class 1 or 2 patient (only mild systemic disease), or a STABLE, well controlled insulin dependent diabetic. They do not have serious cardiac disease ie CA/angiopl asty within 1 year, symptomati c CHF; renal failure with CKD 4 or 5; take Coumadin, Plavix, Aggrenox, etc. Tobacco user 802172436 Z 72.0 We discussed your smoking today for more than 3 minutes. Cigarette use is the leading cause of preventabl e disease, disability , and in the [place]. We talked about tools and medication s available to help you in smoking cessation. We discussed utilizing our smoking cessation assistant baseball coach and online resources. Your personal goal: start vareniclin e New medication was discussed today with patient including risks, benefits ,possible and expected side effects. Patient understand s and is willing to begin medication as prescribed . Vitamin D deficiency 347 10683 E55.9 Pulmonary emphysema 8743 3001 J43.9 -Patient was validated and supported in ongoing smoking cessation Cigarette smoker 9387064 7 F17.210 Benign ess ential hypertension 7293655 I10 After a discussion of treatment and medication options, which included considerat ion of the best practices in medicine, a medical plan was provided. The patient's opinions and concerns were included in this treatment plan and goal. 1. Discussed Blood Pressure goals.2. BP GOAL is under 130/80. Patient IS AT GOAL.3.Fol low up in 1 months for smoking. Abdominal aortic aneurysm 476679410 I71.40 [id number] Jude Snowden MD Endocrino logy, [facility] [address] [place] [address] 06/12/2023 14:52:56 06/12/2023 15:52:14 Cigarette smoker 93597184 F17.210 Tobacco user 109324773 Z 72.0 Tobacco de pendence syndrome 66117679 F17.290 -current 10cig/d-pl an to start vareniclin e, you are ready to set a date, but you will try this June Primary hyperparathyroidism 72045206 E21.0 -24h urine calcium creatinine while taking in 1000mg calcium daily Osteoporosis 53416268 M8 1.0 [id number] Pollo Castellon MD Sports Medicine, [facility] [address] [place] [address] 08/14/2023 13:35:19 08/21/2023 15:37:35 Tobacco user 945820877 Z72.0 Anabela and I did discuss smoking [...] cessation. Pain of le ft knee joint 1534424534 80170 M25.562 Anabela is a 72-year-ol d female [...] her back as needed for further care. [id number] Chhaya Sosa NP , [facility], OFFICE [address] [place] [address] 06/21/2023 09:17:58 06/25/2023 13:41:04 Tobacco user 142686474 Z72.0 We discussed your smoking today for more than 3 minutes. Cigarette use is the leading cause of preventabl e disease, disability , and in the [place]. We talked about tools and medication s available to help you in smoking cessation. We discussed utilizing our smoking cessation assistant baseball coach and online resources. Has chantix - but hasnt started. Recurrent urinary tract infection 661836701 N39.0 After a discussion of treatment and [...] or worsening symptoms. Major depr essive disorder 695587284 F32.0 -STABLE on meds [id number] NANDINI Abdullahi FP, [facility], OFFICE [address] [place] [address] 06/24/2023 17:15:42 06/26/2023 08:42:29 Tobacco user 022288558 Z72.0 We discussed your smoking today for more than 3 minutes. Cigarette use is the leading cause of preventabl e disease, disability , and in the [place]. We talked about tools and medication s available to help you in smoking cessation. We discussed utilizing our smoking cessation assistant baseball coach and online resources. Your personal goal: to quit! recently started oral vareniclin e to help - continue Active or passive immunization 259765503 Z23 Shingrix: had 1st dose Cigarette smoker 3396453 7 F17.210 reports she's in the LDCT program already Hypertensive disorder 38 113707 I10 BP at goal, continue current regimen Vaginal irritation 54393 6004 N89.8 unclear etiology but discussed suspect yeastdecli didier vaginal swab today, does not have active d/cwill try topical clotrimazo le externally to startcall if worsening/ not resolving Urinary tr act infectious disease 64772727 N39.0 finish abx as prescribed , f/u if not resolved after course [id number] Chhaya Sosa NP FP, [facility], OFF[facility] [address] [place] [address] 07/11/2023 11:37:45 07/12/2023 09:04:54 Tobacco user 131145716 Z72.0 We discussed your smoking today for more than 3 minutes. Cigarette use is the leading cause of preventabl e disease, disability , and in the [place]. We talked about tools and medication s available to help you in smoking cessation. We discussed utilizing our smoking cessation assistant baseball coach and online resources. Active or passive immunization 367782620 Z23 shingles- reminded Recurrent urinary tract infection 004498179 N39.0 After a discussion of treatment and [...] ongoing smoking cessation Major depr essive disorder 677469543 F32.0 -STABLE on meds [id number] Jude Snowden MD Endocrino logy, [address] [address] 07/31/2023 12:55:36 07/31/2023 13:54:21 Osteoporosis 14024338 M81.0 Tobacco user 650065728 Z 72.0 Primary hyperparathyroidism 64723706 E21.0 -please stop olmesartan -hydrochlo rothiazide and repeat bp check with PRODUCTION CONTROL ANALYST Ian in 2 to 4 weeks -after 1 week, reassess 24h urine calcium creatinine while taking in 1000mg calcium daily, 3 to 4 servings of dairy daily -hctz falsely lowers urine calcium Active or passive immunization 009138906 Z23 Cigarette smoker 0844824 7 F17.210 Tobacco de pendence syndrome 80571966 F17.290 -you smoke 1st thing in the morning-gr andson gets on nerves and is one reason you smoke-curr ent up 10cig/d-yo u tried vareniclin e 2 halves, then stopped due to grandson staying with you Essential hypertension 04077310 I10 -please stop olmesartan -hydrochlo rothiazide and repeat bp check with PRODUCTION CONTROL ANALYST Ian in 2 to 4 weeks [id number] Jude Snowden MD Endocrino logy, [facility] [address] [place] [address] 09/11/2023 12:17:04 09/11/2023 14:13:05 Osteoporosis 03935949 M81.0 Primary hyperparathyroidism 88216395 E21.0 -please stop olmesartan -hydrochlo rothiazide , make sure you are off this, your pharmacy states you picked this up today -add calcium 250mg by mouth twice daily, yogurt/priya carlos 2x/d -reassess 24h urine calcium creatinine while taking in 1000mg calcium daily, 2 servings of dairy daily -hctz falsely lowers urine calcium Benign ess ential hypertension 7509157 I10 Tobacco user 981346168 Z 72.0 Cigarette smoker 2643770 7 F17.210 Tobacco de pendence syndrome 18099188 F17.290 -you smoke 1st thing in the morning-cu rrent up 6cig/d-you tried vareniclin e, then stopped due to wanting to smoke more-lozen ges make you gag-you sometimes get a craving to have a cig-you have other things on your mind Essential hypertension 65202732 I10 -please stop olmesartan -hydrochlo rothiazide [id number] Chhaya Sosa NP , [facility], OFFICE [address] [place] [address] 09/20/2023 09:38:38 09/23/2023 09:04:52 Active or passive immunization 311797033 Z23 shingles- reminded Tobacco user 441891919 Z 72.0 We discussed your smoking today for more than 3 minutes. Cigarette use is the leading cause of preventabl e disease, disability , and in the [place]. We talked about tools and medication s available to help you in smoking cessation. We discussed utilizing our smoking cessation assistant baseball coach and online resources. Your personal goal: Morbid obesity 884224073 E66.01 - -Work on healthy eating, weight loss, and exercise-C all if you [facility] Chronic ob structive pulmonary disease 40330810 J44.9 -stable on meds [id number] Jude Snowden MD Endocrino logy, [facility] [address] [place] [address] 10/09/2023 13:53:57 10/09/2023 15:46:30 Osteoporosis 80497169 M81.0 Benign ess ential hypertension 8163993 I10 Primary hyperparathyroidism 43738237 E21.0 -please be off olmesartan -hydrochlo rothiazide , make sure you are off this, your pharmacy states you picked this up today - calcium 250mg by mouth twice daily, yogurt/priya carlos 2x/d -reassess 24h urine calcium creatinine while taking in 1000mg calcium daily, 2 servings of dairy daily -hctz falsely lowers urine calcium Tobacco user 386562400 Z 72.0 Cigarette smoker 7640890 7 F17.210 Tobacco de pendence syndrome 46459792 F17.290 -you smoke 1st thing in the morning-cu rrent up 5 to 6cig/d-you tried vareniclin e, then stopped due to wanting to smoke more-lozen ges make you gag-you sometimes get a craving to have a cig-you have other things on your mind Essential hypertension 59906233 I10 -please stop olmesartan -hydrochlo rothiazide prior to urine calcium testing, may restart after [id number] Jude Snowden MD Endocrino logy, [facility] [address] [place] [address] 11/13/2023 11:11:43 11/13/2023 12:54:44 Primary hyperparathyroidism 16411178 E21.0 -I suggest blood CASR (calcium sensing receptor) genetic testing, you decline -please consider a second opinion or genetic consult after reviewing with your primary provider -return as needed -stay on olmesartan -hydrochlo rothiazide -stop calcium supplement s -hctz falsely lowers urine calcium, but you did not take this during urine testing Osteoporosis 43539858 M8 1.0 Benign ess ential hypertension 6862794 I10 Tobacco user 925061213 Z 72.0 Cigarette smoker 3337346 7 F17.210 Tobacco de pendence syndrome 51597488 F17.290 -you smoke 1st thing in the morning-cu rrent up 6cig/d-you tried vareniclin e, then stopped due to wanting to smoke more-lozen ges make you gag-you sometimes get a craving to have a cig-you have other things on your mind Essential hypertension 44328009 I10 -continue olmesartan -hydrochlo rothiazide 8450428 Chhaya Sosa NP FP, [facility], OFFICE [address] [place] [address] 11/19/2023 09:17:21 11/19/2023 10:08:31 Nicotine dependence 41690986 F17.200 We discussed your smoking/va ping today for more than 3 minutes. Cigarette/ pod use is the leading cause of preventabl e disease, disability , and in the [place]. We talked about tools and medication s available to help you in smoking/va ping cessation. We discussed utilizing our smoking cessation assistant baseball coach and online resources. Active or passive immunization 765123856 Z23 shingles- reminded Hyperlipidemia 40288592 E78.5 -check labs Prediabetes 651062009 R7 3.03 -stable Morbid obesity 028701415 E66.01 - -Work on healthy eating, weight loss, and exercise-C all if you want to see the nutritioni st Major depr essive disorder 568265535 F32.0 -STABLE on meds-follo w up in 4 months Chronic ob structive pulmonary disease 48162223 J44.9 -stable on meds-encou raged daily walking 4448592 Chhaya Sosa NP FP, [facility], OFFICE [address] [place] [address] 04/23/2024 11:07:23 04/23/2024 12:36:32 Active or passive immunization 654485577 Z23 shingles- reminded Nicotine dependence 5629 4008 [...] We discussed utilizing our smoking cessation assistant baseball coach and online resources. Your personal goal: Currently does not want to start smoking cessation. Increased frequency of urination 622034951 R35.0 Urinary frequency at night. unable to ambulate to bathroom at night. Will order urine culture to assess for infection. Urinary incontinence 165 853106 R32 Informed on kegel exercises, option of physical therapy.Di scussed use of urinary pads/under wear. Dilatation of aorta 2666 0001 I77.811 Benign ess ential hypertension 8978917 I10 After a discussion of treatment and [...] for wellness Chronic ob structive pulmonary disease 77325673 J44.9 -stable on meds-encou raged daily walking Abdominal aortic aneurysm 939348179 I71.40 -to get ultrasound Primary hyperparathyroidism 66069963 E21.0 -follow up w Dr Snowden as discussed todat Major depr essive disorder 713853090 F32.0 -STABLE on meds-follo w up in 2 months 9565918 ADARSH FOY, KIMBERLYN , [facility], OFFICE [address] [place] [address] 05/15/2024 13:44:45 05/15/2024 15:28:47 Pyelonephritis 87665147 N12 Pt w L-sided flank pain, fatigue, [...] to r/u other causes. Fracture of fibula 03802 007 S82.401A in wheelchair unable to get on and off toilet here [id number] Chhaya Sosa NP , [facility], OFFICE [address] [place] [address] 06/15/2024 11:30:11 06/15/2024 12:15:35 Nicotine dependence 60954108 F17.200 We discussed your smoking/va ping today [...] We discussed utilizing our smoking cessation assistant baseball coach and online resources. Active or passive immunization 489019970 Z23 shingles- reminded Aneurysm o f infrarenal abdominal aorta 323156299 I71.43 After a discussion of treatment and medication options, which included considerat ion of the best practices in medicine, a medical plan was provided. The patient's opinions and concerns were included in this treatment plan and goal. -Number to VASCULAR given and patient instructed to schedule the appointmen t. Referral completed. -If this specialty office requires [facility] to schedule the appointmen t the patient will call our office back and we will have the referrals department schedule it. -Will call with any new concerns or worsening symptoms. Smoker 72892392 F17.200 We talked about tools and medication s available to help you in smoking/va ping cessation. We discussed utilizing our smoking cessation assistant baseball coach and online resources. Entropion 43966290 H02.0 09 -to see eye surgeon next week Benign ess ential hypertension 5222524 I10 After a discussion of treatment and [...] Advance Directives Directive Y: Daughter Magno Castellon Payers Encounter Date Sequence Insurance Name Policy Number Policy Porras Covered Member ID Porras Member ID Guarantor Name 11/13/2023 2 [place] Anabela J Gillette [id number] [facility] 11/13/2023 1 [place] [employer] Anabela J Gillette [id number] [facility] 11/19/2023 2 [place] Anabela J Gillette [id number] [facility] 11/19/2023 1 [place] [employer] Anabela J Gillette [id number] [facility] 04/23/2024 2 [place] Anabela J Gillette [id number] [facility] 04/23/2024 1 [place] [employer] Anabela J Gillette [id number] [facility] 05/15/2024 2 [place] Anabela J Gillette [id number] [facility] 05/15/2024 1 [place] [employer] Anabela J Gillette [id number] [facility] 06/15/2024 2 [place] Anabela J Gillette [id number] [facility] 06/15/2024 1 [place] [employer] Anabela J Gillette [id number] [facility] Notes Date Note Type Note Provider Name and Address Organization Details Recorded Time 4 text/html Follow-Up: primary hyperparathyroidismFollo w-Up: osteoporosisFollow-Up: benign essential hypertensionFollow-Up: tobacco userissues;discuss labs from 10/22/23 no falls fractures or kidney stones Jude Snowden MD [address] [place] [address], [address], [facility] 11/13/2023 12:22:59 4 text/html 09/20/23 got wheel [...] doing ok w inhalers Chhaya Sosa NP [address] [place] [address], [address], [facility] 11/19/2023 10:20:12 4 text/html 04/23/2024I am a student, Coreen TAMEZ, working with Sana Sosa NP. Patient states doing well. David gr son (ellyn son) helping her. Lives with grandson at home. Feel safe at home. 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 Pre op for entropian surgery requested by Dr Brandon Londono.[facility] Surgery next week- 06/23/24 HCP - magno, in chartMolst in chart, wants resuscitation. No issues w anesthesia in past SmokingDeclines medsstill smoking regularlyldct in 11/03 ordered. Chhaya Sosa NP [address] [place], [address], [facility] 06/15/2024 12:35:01 OBGyn Episode No OBEpisode recorded.
== END 2024-12-10 15:17 | disposition home or self-care (01) ==
LOC: HO.MMNH2L 15:16
PROVIDERS: Visit Provider Family Medicine
DX: Z13.89 Encounter for screening for other disorder (principal)

== ENCOUNTER 2024-12-11 05:51 | Outpatient (REF) | payer MEDICARE, MEDICAID, SELFPAY ==
[2024-12-11 05:53] LABS: MANUAL DIFF FLAG NO
--- OUTSIDE RECORDS SUMMARY | 2024-12-11 05:53 | XMS_ITS | Encounter Summary ---
Author Organization [facility] Address [address] [place] [address] Care Team Providers Care Guide Plant Name Role Phone Saqib Lock MD Primary Care Provi amelia Encounter Details Date Type Department Care Team (Late st Contact Info) Description 11/16/2024 Telephone Lung Screening Program - [address] [phone] Jeanie Anders [place] Social History Tobacco Use [...] Info) Description 01/28/2025 9:30 AM EDT Appointment [facility] CT Scan [address] [place] [phone] documented as of this encounter Visit Diagnoses Not on filedocumented in this encounter Care Teams Guide Plant Relationship Specialty Start Date End Date Saqib Lock MD [address] [place], [place] PCP - General 10/30/22 documented as of this encounter
--- OUTSIDE RECORDS SUMMARY | 2024-12-11 05:53 | XMS_ITS | Clinical Summary ---
Author Organization [facility] [address] [facility] ilding Address [address] [place] [address] Phone Care Team Providers Care Overlay Operator Name Role Phone Saqib Lock MD Primary Care Provi amelia Encounters Date Type Department Care Team Description 11/16/2024 Telephone Lung Screening Program - [address] [phone] Jeanie Anders [place] 11/02/2024 Telephone Lung Screening Program - [address] [phone] Love Ty [place] Appointment (Upcoming LDCT) from Last 3 Months Medical History Medical History Date Comments Current every day smoker DX:Curr ent every day smoker Essential (primary) hypertension DX:Essential (primary) hypertension COPD (chronic obstructive pu lmonary disease) ([facility]) DX:COPD (chronic obstructive pulmonary disease) ([facility]) Depression DX:Depression Thyroid disease DX:Thyroid disea [...] Upcoming Encounters Date Type Department Care Team ([facility] st Contact Info) Description 01/28/2025 9:30 AM EDT Appointment [facility] CT Scan [address] [place] [address] Health Maintenance Due Date Last [...] age to complete this topic Care Teams Overlay Operator Relationship Specialty Start Date End Date Saqib Lock MD [address] [place] [address] [facility] - General 10/30/22
--- OUTSIDE RECORDS SUMMARY | 2024-12-11 05:54 | XMS_ITS | Continuity of Care Document ---
Author Organization [facility], [facility] Address [address] [place] [address] Care Team Providers Care Locomotive Oiler Name Role Phone NIKITA LIN Primary Care Provide r [facility] 2ND FLOOR OTHER [phone] Assessment No assessment recorded. Plan of Treatment Reminders Order Date Submit [...] Address Organization Details Recorded Time Pulmonary emphysema 62710389 Active 2022 VANGIE [address]ine[employer] [address], [address], [place], [address], [facility] 3 10:46:22 Osteoarth ritis 436242384 Active 2022 [address] LORD [address], [address], [place], [address], [facility] 3 10:46:28 Asthma 569186028 Active [address]22 [address] LORD [address], [address], [place], [address], [facility] [place] 3 10:46:32 Cyst of breast 146070637 Completed 202209/07/2024 KIMBERLYN MERCEDES [address], [address], [place], [address], [facility] 4 20:44:27 Chronic obstructi ve pulmonary disease 28116136 Active [address], [address], [place], [address], [facility] 3 10:46:48 Obesity 776650195 Completed 202209/07/2024 KIMBERLYN MERCEDES [address] [facility], [address], [place], [address], [facility] 4 20:44:27 Depressiv e disorder 44892416 Active [address], [address], [place], [address], [facility] 3 10:47:08 Hyperlipi demia 84661053 Active [address], [address], [place], [address], [facility] 3 10:47:16 Polyp of colon 67650512 Completed 202209/07/2024 KIMBERLYN MERCEDES [address] [place] [address], [address], [place], [address], [facility] 4 20:44:27 History of deep vein thrombosi s 919851444 Active [address], [address], [place], [address], [facility] 3 10:47:37 Essential hypertens ion 97528678 Active [address], [address], [place], [address], [facility] 3 10:51:08 Closed fracture of left patella 359264244577 82869 Completed 202209/07/2024 KIMBERLYN MERCEDES [address] [facility], [address], [place], [address], [facility] 4 20:44:27 Gastroeso phageal reflux disease without esophagit is 694032171 Active [address], [address], [place], [address], [facility] 3 10:57:14 Fall Active 2022 VANGIE LORENZANA [address] [facility], [address], [place], [address], [facility] 3 11:02:17 Fracture of proximal end of femur 138399228 Completed 202309/07/2024 KIMBERLYN MERCEDES [address], [place], [address], [facility] 4 10:10:21 Tobacco user 044067147 Active 2023 VANGIE LORENZANA [address] [facility], [address], [place], [address], [facility] 4 15:12:34 Hypercalc emia 64829721 Completed 202309/07/2024 KIMBERLYN MERCEDES [address] [facility], [address], [place], [address], [facility] 4 20:44:27 History of thrombocy topenia 249917433737 08 Completed 202309/07/2024 KIMBERLYN MERCEDES [address] [facility], [address], [place], [address], [facility] 4 20:48:33 Constipat ion 35152180 Active 2023 Holly Robles MD [address] [facility], [address], [place], [address], [facility] 4 21:45:11 Fracture of proximal end of femur 865908478 Active 2023 KIMBERLYN MERCEDES [address] [facility], [address], [place], [address], [facility] 4 10:10:21 Problem Notes None recorded. Procedures Surgical History Date Name Laterality Status Provider Name and Address Organization Details Recorded Time ligation of fallopian tube completed VANGIE [address], [place], [address], [facility] 01/28/2023 10:47:49 cholecystectomy completed VANGIE [address] [place] [address], [address], [place], [address], [facility] 01/28/2023 10:47:57 Imaging Results None recorded. [...] Available Not Available Not Avai lable Vitals None Recorded Social History Question Answer Notes LastModified by Organization Details LastModified Time Tobacco Smoking Status Former Smoker every day, 1 ppd VANGIE LORD [address] [facility], [address], [place], [address], [facility] 01/28/2023 10:48:58 Do You Have An [...] Do You Have A Medical Power Of Resident Service Coordinator? Yes Information not available 07/20/2024 What Was [...] (COVID-19) vaccine, UNSPECIFIED 1 completed Minnie Schwab [facility] 01/28/2023 16:51:35 SARS-COV-2 (COVID-19) vaccine, UNSPECIFIED 1 completed Minnie Schwab [facility] 01/28/2023 16:51:48 Tdap 5 completed Minnie Schwab [facility] 01/28/2023 16:52:09 influenza, unspecified formulation 1 completed Minnie Schwab [facility] 01/28/2023 16:52:33 pneumococcal conjugate PCV 7 6 completed Minnie Schwab [facility] 01/28/2023 16:53:01 pneumococcal polysaccharide PPV23 2 completed Minnie Schwab [facility] 01/28/2023 16:53:16 zoster recombinant 9 completed Minnie Schwab [facility] 01/28/2023 16:53:33 zoster live 2 completed Minnie Schwab [facility] 01/28/2023 16:53:50 Influenza, adjuvanted, quadrivalent, PF 2 [facility] 12/11/2023 11:33:48 Influenza, adjuvanted, quadrivalent, PF 3 completed Mily Almonte [facility] 01/09/2024 11:17:44 Past Encounters Encounter ID Performer Location Encounter Start Date Encounter Closed Date Diagnosis/Indication Diagnosis SNOMED-CT Code Diagnosis ICD10 Code Diagnosis Note [id number] KIMBERLYN MERCEDES [facility] [address] [place] [address] 11/09/2024 13:20:09 11/18/2024 11:14:37 Recurrent urinary tract infection 026182308 N39.0 abx completedm onitor for reoccurenc ewater/ increased fluids encouraged [id number] KIMBERLYN MERCEDES [facility] [address] [facility] [place] [address] 12/10/2024 15:22:50 12/10/2024 18:43:43 Left sided abdominal pain 324386513 R10.9 patient states that she has had this pain in the past and it has been intermitte nt and ongoing, she does not recall if she has seen GIdiscusse d with patient and nursingche ck labs cbc, CMP,straig ht cath for UA with c/sxray KUBconside r referral to GI if labs are non specific Dizziness 175192502 R42 BP 160's (could be related to pain)start meclizine 12.5 mg q 8 prnmonitor for resolution Health Concerns Section Related Observation LastModified by Organization Detai ls LastModified Time None Recorded Concern Status LastModified by Organization Details LastModified Time None Recorded Payers Encounter Date Sequence Insurance Name Policy Number Policy Porras Covered Member ID Porras Member ID Guarantor Name 12/10/2024 2 [place] [facility] Anabela Gillette [id number] Anabela 12/10/2024 1 [place] [employer] Anabela Gillette [id number] [facility] Notes Date Note Type Note Provider Name and Address Organization Details Recorded Time 12/10/2024 text/html Anabela is a 74 yr [...] no tenderness or distention. KIMBERLYN MERCEDES [address] [facility], [address], [place], [address], [facility] 12/10/2024 18:43:42 OBGyn Episode No OBEpisode recorded.
[2024-12-11 06:21] LABS: Basophils Percent Auto 0.7 % (0-2); Eosinophils Absolute Auto 0.1 X10*3/uL (0.0-0.4); Eosinophils Percent Auto 1.3 % (0-4); Hematocrit 37.2 % (37.0-47.0); Hemoglobin 12.4 g/dl (12.0-16.0); Imm Gran Abs Auto 0.02 X10*3/uL (0.00-0.03); Imm Gran Pct Auto 0.3 % (0.0-0.4); Lymphocytes Absolute Auto 1.8 X10*3/uL (1.2-4.9); Lymphocytes Percent Auto 28.6 % (20-40); Mean Corpuscular HGB Conc 33.3 g/dl (31.0-35.0); Mean Corpuscular Hemoglobin 34.4 pg (27.0-33.0); Mean Corpuscular Volume 103.3 fL (80.0-98.0); Mean Platelet Volume 10.4 fL (9.4-12.3); Monocytes Absolute Auto 0.4 X10*3/uL (0.1-1.2); Monocytes Percent Auto 7.2 % (2-11); Neutrophils Absolute Auto 3.8 x10*3/uL (2.0-8.3); Neutrophils Percent Auto 61.9 % (45-73); Platelet Count 141 X10*3/uL (160-400); Red Cell Distribution Width 13.6 % (11.0-16.0); White Blood Count 6.1 X10*3/uL (4.8-10.8)
[2024-12-11 06:33] LABS: Alanine Aminotransferase 9 U/L (0-31); Albumin Level 3.3 g/dL (3.5-5.0); Alkaline Phosphatase 88 U/L (39-117); Amylase 29 U/L (28-100); Anion Gap 10 (12-20); Aspartate Amino Transferase 15 U/L (5-31); Bilirubin Total 0.5 mg/dL (0.0-1.0); Blood Urea Nitrogen 17 mg/dL (9-16); C Reactive Protein < 0.04 mg/dL (< or = 0.50); Calcium 10.9 mg/dL (8.4-10.2); Carbon Dioxide 31 mmol/L (22-29); Chloride 108 mmol/L (96-108); Estimated Glomerular Filt Rate > 60; Glucose Random 84 mg/dL (60-115); Lipase 8 U/L (8-78); Potassium 4.1 mmol/L (3.3-5.1); Sodium 145 mmol/L (135-145)
[2024-12-11 15:04] LABS: Appearance Urine Turbid; Color Urine Yellow; Glucose Urine UA Negative (Negative); Leukocyte Esterase Urine Large (3+) (Negative); Nitrite Urine Positive (Negative); PH 8.5 (5.0-9.0); Specific Gravity - Urine 1.015 (1.005-1.025); UMIC TRIGGER UA YES; Urine Blood Small (1+) (Negative); Urine Ketones Negative (Negative); Urine Protein 30 (1+) mg/dL (Neg-Trace)
[2024-12-11 15:12] LABS: Bacteria Urine 4+ (None Seen); RBC Urine 0-2 /HPF (0-2); Squamous Epithelial Cell Urine 0-2 /HPF (0-2); WBC Urine >50 /HPF (0-5)
== END 2024-12-11 05:52 | disposition home or self-care (01) ==
LOC: HO.MMNH2L 05:51
PROVIDERS: Internal Medicine; Visit Provider Family Medicine
DX: N39.9 Disorder of urinary system, unspecified (principal); Z87.440 Personal history of urinary (tract) infections; R10.9 Unspecified abdominal pain; R11.10 Vomiting, unspecified
CPT/HCPCS: 36415; 80053; 81001; 81003; 82150; 83690; 85025; 86140; 87086; 87088; 87186

== ENCOUNTER 2024-12-14 06:18 | Outpatient (REF) | payer MEDICARE, MEDICAID, SELFPAY ==
[2024-12-14 06:04] LABS: MANUAL DIFF FLAG NO
[2024-12-14 06:27] LABS: Basophils Percent Auto 0.7 % (0-2); Eosinophils Absolute Auto 0.1 X10*3/uL (0.0-0.4); Eosinophils Percent Auto 1.7 % (0-4); Hematocrit 34.9 % (37.0-47.0); Hemoglobin 11.8 g/dl (12.0-16.0); Imm Gran Abs Auto 0.02 X10*3/uL (0.00-0.03); Imm Gran Pct Auto 0.4 % (0.0-0.4); Lymphocytes Absolute Auto 1.8 X10*3/uL (1.2-4.9); Lymphocytes Percent Auto 32.7 % (20-40); Mean Corpuscular HGB Conc 33.8 g/dl (31.0-35.0); Mean Corpuscular Hemoglobin 34.8 pg (27.0-33.0); Mean Corpuscular Volume 102.9 fL (80.0-98.0); Mean Platelet Volume 10.4 fL (9.4-12.3); Monocytes Absolute Auto 0.5 X10*3/uL (0.1-1.2); Monocytes Percent Auto 8.5 % (2-11); Platelet Count 142 X10*3/uL (160-400); Red Blood Count 3.39 X10*6/uL (4.20-5.50); Red Cell Distribution Width 13.6 % (11.0-16.0); White Blood Count 5.4 X10*3/uL (4.8-10.8)
--- OUTSIDE RECORDS SUMMARY | 2024-12-14 06:27 | XMS_ITS | Continuity of Care Document ---
Author Organization [facility], [facility] Address [address] [place] [address] Care Team Providers Care Electric Distribution Checker Name Role Phone NIKITA LIN Primary Care Provide r [facility] 2ND FLOOR OTHER Assessment No assessment recorded. Plan of Treatment [...] Address Organization Details Recorded Time Pulmonary emphysema 61151514 Active 2022 VANGIE LORD [address], [address], [place], [address], [facility] [employer] 3 10:46:22 Osteoarth ritis 154109364 Active 2022 VANGIE LORD [address], [address], [place], [address], [facility] 3 10:46:28 Asthma 288351566 Active 2022 VANGIE LORD [address], [address], [place], [address], [facility] 3 10:46:32 Cyst of breast 923155049 Completed 202209/07/2024 KIMBERLYN MERCEDES [address], [address], [place], [address], [facility] [employer] 4 20:44:27 Chronic obstructi ve pulmonary disease 27360328 Active 2022 VANGIE LORD [address], [address], [place], [address], [facility] 3 10:46:48 Obesity 812050989 Completed 202209/07/2024 [address] [facility], [address], [place], [address], [facility] 4 20:44:27 Depressiv e disorder 63765966 Active [address], [address], [place], [address], [facility] 3 10:47:08 Hyperlipi demia 88129560 Active [address], [address], [place], [address], [facility] 3 10:47:16 Polyp of colon 51070274 Completed 202209/07/2024 KIMBERLYN MERCEDES [address] [place] [address], [address], [place], [address], [facility] 4 20:44:27 History of deep vein thrombosi s 723997074 Active [address], [address], [place], [address], [facility] 3 10:47:37 Essential hypertens ion 47406087 Active [address], [address], [place], [address], [facility] 3 10:51:08 Closed fracture of left patella 130720854589 06884 Completed 202209/07/2024 [address] [facility], [address], [place], [address], [facility] 4 20:44:27 Gastroeso phageal reflux disease without esophagit is 580542399 Active [address], [address], [place], [address], [facility] 3 10:57:14 Fall Active [address] [facility], [address], [place], [address], [facility] 3 11:02:17 Fracture of proximal end of femur 996878960 Completed 202309/07/2024 KIMBERLYN MERCEDES [address], [place], [address], [facility] 4 10:10:21 Tobacco user 715426596 Active [address] [facility], [address], [place], [address], [facility] 4 15:12:34 Hypercalc emia 45959681 Completed 202309/07/2024 [address] [facility], [address], [place], [address], [facility] 4 20:44:27 History of thrombocy topenia 853274364423 08 Completed 202309/07/2024 [address] [facility], [address], [place], [address], [facility] 4 20:48:33 Constipat ion 43684665 Active 2023 Holly Robles MD [address] [facility], [address], [place], [address], [facility] 4 21:45:11 Fracture of proximal end of femur 265985158 Active 2023 KIM[address]ES [address] [facility], [address], [place], [address], [facility] 4 10:10:21 Problem Notes None recorded. Procedures Surgical History Date Name Laterality Status Provider Name and Address Organization Details Recorded Time ligation of fallopian tube completed VANGIE [address], [place], [address], [facility] 01/28/2023 10:47:49 cholecystectomy completed VANGIE [address] [place] [address], [address], [place], [address], [facility] 01/28/2023 10:47:57 Imaging Results None recorded. [...] every day, 1 pp[address] [facility], [address], [place], [address], [facility] 01/28/2023 10:48:58 Do You Have An [...] Do You Have A Medical Power Of Processing Technologist? Yes Information not available 07/20/2024 What Was [...] (COVID-19) vaccine, UNSPECIFIED 1 completed Minnie Schwab [facility] 01/28/2023 16:51:35 SARS-COV-2 (COVID-19) vaccine, UNSPECIFIED 1 completed Minnie Schwab [facility] 01/28/2023 16:51:48 Tdap 5 completed Minnie Schwab [facility] 01/28/2023 16:52:09 influenza, unspecified formulation 1 completed Minnie Schwab [facility] 01/28/2023 16:52:33 pneumococcal conjugate PCV 7 6 completed Minnie Schwab [facility] 01/28/2023 16:53:01 pneumococcal polysaccharide PPV23 2 completed Minnie Schwab [facility] 01/28/2023 16:53:16 zoster recombinant 9 completed Minnie Schwab [facility] 01/28/2023 16:53:33 zoster live 2 completed Minnie Schwab [facility] 01/28/2023 16:53:50 Influenza, adjuvanted, quadrivalent, PF [facility] 11:33:48 Influenza, adjuvanted, quadrivalent, PF 3 completed Mily Almonte [facility] 01/09/2024 11:17:44 Past Encounters Encounter ID Performer Location Encounter Start Date Encounter Closed Date Diagnosis/Indication Diagnosis SNOMED-CT Code Diagnosis ICD10 Code Diagnosis Note [id number] KIMBERLYN MERCEDES [facility] [address] [place] [address] 11/09/2024 13:20:09 11/18/2024 11:14:37 Recurrent urinary tract infection 688396138 N39.0 abx completedm onitor for reoccurenc ewater/ increased fluids encouraged [id number] KIMBERLYN MERCEDES [facility] [address] [facility] [place] [address] 12/10/2024 15:22:50 12/10/2024 18:43:43 Left sided abdominal pain 230390756 R10.9 patient states that she has had this pain in the past and it has been intermitte nt and ongoing, she does not recall if she has seen GIdiscusse d with patient and nursingche ck labs cbc, CMP,straig ht cath for UA with c/sxray KUBconside r referral to GI if labs are non specific Dizziness 258391570 R42 BP 160's (could be related to pain)start meclizine 12.5 mg q 8 prnmonitor for resolution Health Concerns Section Related Observation LastModified by Organization Detai ls LastModified Time None Recorded Concern Status LastModified by Organization Details LastModified Time None Recorded Payers Encounter Date Sequence Insurance Name Policy Number Policy Porras Covered Member ID Porras Member ID Guarantor Name 12/10/2024 2 [place] [facility] Anabela Gillette [id number] Anabela 12/10/2024 1 [place] [employer] [place] [employer] Anabela Gillette [id number] [facility] Notes Date Note Type Note [...] no tenderness or distention. KIMBERLYN MERCEDES [address] [facility], [address], [place], [address], [facility] - [facility] 12/10/2024 18:43:42 OBGyn Episode No OBEpisode recorded.
--- OUTSIDE RECORDS SUMMARY | 2024-12-14 06:27 | XMS_ITS | Data Portability ---
Author Organization [facility], , [facility] Address [address] [place] [address] Care Team Providers Care Human Services Case Manager Name Role Phone JUDE SNOWDEN Criminal Intelligence Specialist CHHAYA SOSA Primary Care Provider [facility] Service Tech/Welder ROSY TRISTAN Urologist [facility] Assessment Encounter Date Assessment Date Assessment LastModified by Organization Details LastModified Time 11/13/2023 11/13/2023 73yo woman, with a history of thyroid nodules, hypertension, kindly referred by COREMAKER PIPE Ian for primary hyperparathyroidism and question of [...] could seek a second opinion from another molder foam rubber or a genetic consult. I think CASR [...] None recorded. Lab culture, urine 2023 024 [facility], [address] [place] [address], [address], 4 14:23:35 urinalysi s, dipstick, auto 2023 024 [facility], [address] [place] [address], [address], 4 15:32:30 urinalysi s, dipstick, auto 2023 024 [facility], [address] [place] [address], [address], 4 16:36:40 Referral pelvic floor therapy referral - 73 yo f w incontine nce 2023 024 [email or web address], [address], [place], [address], 4 15:37:34 vascular surgeon referral 2023 024 [email or web address] Not available 4 08:33:52 Procedures None recorded. Surgeries None recorded. Imaging US, abdominal aorta - 73 yo f w htn, smoker, hx of aneurysm in the mid to distal portion of the aorta. 2023 024 [facility] (Imaging), [address], [place], [address], 4 13:10:01 LDCT, chest, for lung cancer screening - last scan 11/07/23 (Nancy) wants [facility] as its closer, current smoker, 30+ pack year, 5'6 , 244lbsPle ase enroll this patient in the LDCT Lung Cancer Screening Program (for ordering, follow up and shared decision making) 2023 024 [email or web address] [facility], [address] [place], [address], 4 08:51:18 Medication Orders Nicotrol 10 mg inhalatio n cartridge 2023 024 [id number] 500 [id number], [address], [place], [id number], 5 13:11:10 Cipro 500 mg tablet 2023 024 [facility] [employer] [facility] [facility] [employer] [facility][id number], [address], [place], [id number], 11:46:33 Patient TargetsNo targets recorded. Patient Instructions Encounter Date Encounter Id Patient Instructions Last Modified By Organization Details Last Modified Time 04/23/2024 [id number] Follow up on 07/28/2024 for follow up visit. If any new or worsening concerns, contact the office. [email or web address] Not available 04/23/2024 13:22:56 Patient is seen and examined with the above student. Assessment and Plan formulated with the above student collaboratively with the patient. KIMBERLYN Negro Not available 04/23/2024 13:40:27 06/15/2024 [id number] PRE OPERATIVE MEDICAL EVALUATION : 1. No [...] f w incontinence Referring Physician: Chhaya Sosa [facility], Encounter Date: 04/23/2024 Vascular Surgeon Referral fo r Aneurysm of infrarenal abdominal aorta Referring Physician: Chhaya Sosa [facility], Encounter Date: 06/15/2024 Results Created Date Observation Date Name Description Value Unit Range Abnormal Flag Note LastModifiedBy Organization Detail LastModifiedTime 10/22/2010/22/2023 PTH INTAC T PTH intact 178.6 pg/mL 9.6-66 .3 high Not Available [address], [address], 10/22/2023 14:24:37 10/22/20 23 10/22/2023 VITAM IN [...] er than 30 ng/mL . Not Available [address], [address], 10/22/2023 14:24:38 10/22/20 23 10/23/2023 RENAL PANEL glucose 109 mg/dL 70-100 high Not Available [address], [address], 10/23/2023 15:01:39 10/22/20 23 10/23/2023 RENAL PANEL BUN 12 mg/dL 7-18 Not Available [address], [address], 10/23/2023 15:01:39 10/22/20 23 10/23/2023 RENAL PANEL creatinine 0.9 mg/dL 0.8-1. 3 Not Available [address], [address], 10/23/2023 15:01:39 10/22/20 23 10/23/2023 RENAL PANEL B/C 13.3 ratio Not Available [address], [address], 10/23/2023 15:01:39 10/22/20 23 10/23/2023 RENAL PANEL [...] be used in pregn javier. Not Available [address], [address], 10/23/2023 15:01:39 10/22/20 23 10/23/2023 RENAL PANEL sodium 144 mmol/ L 136-14 5 Not Available [address], [address], 10/23/2023 15:01:39 10/22/20 23 10/23/2023 RENAL PANEL potassium 4.2 mmol/ L 3.5-5. 1 Not Available [address], [address], 10/23/2023 15:01:39 10/22/20 23 10/23/2023 RENAL PANEL chloride 104 mmol/ L 96-107 Not Available [address], [address], 10/23/2023 15:01:39 10/22/20 23 10/23/2023 RENAL PANEL anion gap 9.1 5.0-15 .0 Not Available [address], [address], 10/23/2023 15:01:39 10/22/20 23 10/23/2023 RENAL PANEL CO2 31 mmol/ L 21-32 Not Available [address], [address], 10/23/2023 15:01:39 10/22/20 23 10/23/2023 RENAL PANEL calcium 11.1 mg/dL 8.5-10 .3 high CWP=C onsis tent with previ ous. Not Available [address], [address], 10/23/2023 15:01:39 10/22/2010/23/2023 RENAL PANEL albumin 3.1 g/dL 3.4-5. 0 low Not Available [address], [address], 10/23/2023 15:01:39 10/22/20 23 10/23/2023 RENAL PANEL phosphorous 2.80 mg/dL 2.50-4 .90 Not Available [address], [address], 10/23/2023 15:01:39 10/22/20 23 10/24/2023 CALCI UM, 24 HOUR URINE (W/ CREAT ININE ) calcium/crea tinine ratio 146 mg/g_ creat 30-275 normal Not Available [facility] [address] [place] [address] [address], [place], [address], 10/24/2023 21:53:25 10/22/20 23 10/24/2023 CALCI UM, 24 HOUR URINE (W/ CREAT ININE ) calcium, 24 hour urine 107 mg/24 _h normal Refer ence Range 35-25 0 Low calci um diet 35-20 0 Not Available [facility] [address], [address], 10/24/2023 21:53:25 10/22/20 23 10/24/2023 CALCI UM, 24 HOUR URINE (W/ CREAT ININE ) creatinine, 24 hour urine 0.73 g/24_ h 0.50-2 .15 normal Not Available [facility] [address], [place], [address], 10/24/2023 21:53:25 11/19/19 24 11/19/2023 COMP. METAB OLIC PANEL glucose 99 mg/dL 70-100 Not Available [address], [address], 11/19/2023 13:51:51 11/19/19 24 11/19/2023 COMP. METAB OLIC PANEL BUN 17 mg/dL 7-18 Not Available [address], [address], 11/19/2023 13:51:51 11/19/19 24 11/19/2023 COMP. METAB OLIC PANEL creatinine 1.0 mg/dL 0.8-1. 3 Not Available [address], [address], 11/19/2023 13:51:51 11/19/19 24 11/19/2023 COMP. METAB OLIC PANEL B/C 17.0 ratio Not Available [address], [address], 11/19/2023 13:51:51 11/19/19 24 11/19/2023 COMP. METAB [...] be used in pregn javier. Not Available [address], [address], 11/19/2023 13:51:51 11/19/19 24 11/19/2023 COMP. METAB OLIC PANEL sodium 141 mmol/ L 136-14 5 Not Available [address], [address], 11/19/2023 13:51:51 11/19/19 24 11/19/2023 COMP. METAB OLIC PANEL potassium 3.9 mmol/ L 3.5-5. 1 Not Available [address], [address], 11/19/2023 13:51:51 11/19/19 24 11/19/2023 COMP. METAB OLIC PANEL chloride 101 mmol/ L 96-107 Not Available [address], [address], 11/19/2023 13:51:51 11/19/19 24 11/19/2023 COMP. METAB OLIC PANEL anion gap 7.3 5.0-15 .0 Not Available [address], [address], 11/19/2023 13:51:51 11/19/19 24 11/19/2023 COMP. METAB OLIC PANEL CO2 33 mmol/ L 21-32 high Not Available [address], [address], 11/19/2023 13:51:51 11/19/19 24 11/19/2023 COMP. METAB OLIC PANEL calcium 10.9 mg/dL 8.5-10 .3 high CWP=C onsis tent with previ ous. Not Available [address], [address], 11/19/2023 13:51:51 11/19/19 24 11/19/2023 COMP. METAB OLIC PANEL total protein 6.8 g/dL 6.4-8. 2 Not Available [address], [address], 11/19/2023 13:51:51 11/19/19 24 11/19/2023 COMP. METAB OLIC PANEL albumin 3.4 g/dL 3.4-5. 0 Not Available [address], [address], 11/19/2023 13:51:51 11/19/19 24 11/19/2023 COMP. METAB OLIC PANEL globulin 3.4 g/dL Not Available [address], [address], 11/19/2023 13:51:51 11/19/19 24 11/19/2023 COMP. METAB OLIC PANEL A/G 1.0 ratio 0.8-2. 0 Not Available [address], [address], 11/19/2023 13:51:51 11/19/19 24 11/19/2023 COMP. METAB OLIC PANEL total bilirubin 0.50 mg/dL 0.00-1 .00 Not Available [address], [address], 11/19/2023 13:51:51 11/19/19 24 11/19/2023 COMP. METAB OLIC PANEL AST 32 U/L 0-37 Not Available [address], [address], 11/19/2023 13:51:51 11/19/19 24 11/19/2023 COMP. METAB OLIC PANEL ALT 27 U/L 6-63 Not Available [address], [address], 11/19/2023 13:51:51 11/19/19 24 11/19/2023 COMP. METAB OLIC PANEL alk. phos. 70 U/L 50-136 Not Available [address], [address], 11/19/2023 13:51:51 11/19/19 24 11/19/2023 LIPID PANEL cholesterol 110 mg/dL <200 mg/dl Spike able 200-2 39 mg/dl Borde rline High >240 mg/dl High Not Available [address], [address], 11/19/2023 13:51:53 11/19/19 24 11/19/2023 LIPID PANEL triglyceride s 116 mg/dL <150 mg/dL Marlene l 150-1 99 mg/dL Borde rline High 200-4 99 mg/dL High >500 mg/dL Very High Not Available [address], [address], 11/19/2023 13:51:53 11/19/1911/19/2023 LIPID PANEL direct HDL 45 mg/dL <40 mg/dl - Major Risk for CHD >60 mg/dl - Negat abigail Risk for CHD Not Available [address], [address], 11/19/2023 13:51:53 11/19/1911/19/2023 DIREC T LDL direct [...] r is not marbin reddyy. Not Available [address], [address], 11/19/2023 13:51:54 04/23/20 24 04/23/2024 URINA LYSIS color DARK YELLOW yellow Not Available [address], [address], 04/23/2024 15:32:30 04/23/20 24 04/23/2024 URINA LYSIS clarity SLIGHT LY CLOUDY clear Not Available [address], [address], 04/23/2024 15:32:30 04/23/20 24 04/23/2024 URINA LYSIS glucose NEGATI VE negati ve Not Available [address], [address], 04/23/2024 15:32:30 04/23/20 24 04/23/2024 URINA LYSIS bilirubin 1+ negati ve abnormal Not Available [address], [address], 04/23/2024 15:32:30 04/23/20 24 04/23/2024 URINA LYSIS ketones TRACE negati ve abnormal Not Available [address], [address], 04/23/2024 15:32:30 04/23/20 24 04/23/2024 URINA LYSIS specific gravity 1.025 1.001- 1.035 Not Available [address], [address], 04/23/2024 15:32:30 04/23/20 24 04/23/2024 URINA LYSIS pH 5.5 5.0-8. 0 Not Available [address], [address], 04/23/2024 15:32:30 04/23/20 24 04/23/2024 URINA LYSIS protein 1+ negati ve abnormal Not Available [address], [address], 04/23/2024 15:32:30 04/23/20 24 04/23/2024 URINA LYSIS urobilinogen 0.2 E.U./D L <1.0 Not Available [address], [address], 04/23/2024 15:32:30 04/23/20 24 04/23/2024 URINA LYSIS nitrates POSITI VE negati ve abnormal Not Available [address], [address], 04/23/2024 15:32:30 04/23/20 24 04/23/2024 URINA LYSIS blood NEGATI VE negati ve Not Available [address], [address], 04/23/2024 15:32:30 04/23/20 24 04/23/2024 URINA LYSIS leukocytes 1+ negati ve abnormal Not Available [address], [address], 04/23/2024 15:32:30 04/23/20 24 04/23/2024 URINE , MICRO SCOPI C WBC 25-50 hpf 0-4/hp f Not Available [address], [address], 04/23/2024 16:05:00 04/23/20 24 04/23/2024 URINE , MICRO SCOPI C RBC 3-5 hpf 0-2/hp f Not Available [address], [address], 04/23/2024 16:05:00 04/23/20 24 04/23/2024 URINE , MICRO SCOPI C bacteria 2+ none seen Not Available [address], [address], 04/23/2024 16:05:00 04/23/20 24 04/23/2024 URINE , MICRO SCOPI C yeast NONE SEEN none seen Not Available [address], [address], 04/23/2024 16:05:00 04/23/20 24 04/23/2024 URINE , MICRO SCOPI C squamous epithelial cells 6 hpf 0-5 high Not Available [address], [address], 04/23/2024 16:05:00 04/23/20 24 04/23/2024 URINE , MICRO SCOPI C calcium oxalate crystals 3+ none seen Not Available [address], [address], 04/23/2024 16:05:00 04/23/20 24 04/23/2024 URINE , MICRO SCOPI C mucous NONE SEEN none seen Not Available [address], [address], 04/23/2024 16:05:00 04/23/20 24 04/27/2024 CULTU RE, URINE , ROUTI NE culture, urine, routine abnormal CULTU RE, URINE , ROUTI NE Micro Numbe r: [id number] Test Statu s: Final Speci men [...] lexin and lorac arbef . Not Available [facility] [address] [place] [address] B, [place], [address], 04/27/2024 14:23:35 05/15/20 24 05/15/2024 URINA LYSIS color YELLOW yellow Not Available [address], [address], 05/15/2024 16:36:40 05/15/20 24 05/15/2024 URINA LYSIS clarity CLEAR clear Not Available [address], [address], 05/15/2024 16:36:40 05/15/20 24 05/15/2024 URINA LYSIS glucose NEGATI VE negati ve Not Available [address], [address], 05/15/2024 16:36:40 05/15/20 24 05/15/2024 URINA LYSIS bilirubin 1+ negati ve abnormal Not Available [address], [address], 05/15/2024 16:36:40 05/15/20 24 05/15/2024 URINA LYSIS ketones TRACE negati ve abnormal Not Available [address], [address], 05/15/2024 16:36:40 05/15/20 24 05/15/2024 URINA LYSIS specific gravity 1.025 1.001- 1.035 Not Available [address], [address], 05/15/2024 16:36:40 05/15/20 24 05/15/2024 URINA LYSIS pH 6.0 5.0-8. 0 Not Available [address], [address], 05/15/2024 16:36:40 05/15/20 24 05/15/2024 URINA LYSIS protein 1+ negati ve abnormal Not Available [address], [address], 05/15/2024 16:36:40 05/15/20 24 05/15/2024 URINA LYSIS urobilinogen 1.0 E.U./D L <1.0 abnormal Not Available [address], [address], 05/15/2024 16:36:40 05/15/20 24 05/15/2024 URINA LYSIS nitrates NEGATI VE negati ve Not Available [address], [address], 05/15/2024 16:36:40 05/15/20 24 05/15/2024 URINA LYSIS blood NEGATI VE negati ve Not Available [address], [address], 05/15/2024 16:36:40 05/15/20 24 05/15/2024 URINA LYSIS leukocytes TRACE negati ve abnormal Not Available [address], [address], 05/15/2024 16:36:40 05/15/20 24 05/15/2024 URINE , MICRO SCOPI C WBC 2-4 hpf 0-4/hp f Not Available [address], [address], 05/15/2024 17:02:35 05/15/20 24 05/15/2024 URINE , MICRO SCOPI C RBC 0-2 hpf 0-2/hp f Not Available [address], [address], 05/15/2024 17:02:35 05/15/20 24 05/15/2024 URINE , MICRO SCOPI C hyaline casts 1 lpf 0-2 Not Available [address], [address], 05/15/2024 17:02:35 05/15/20 24 05/15/2024 URINE , MICRO SCOPI C bacteria TRACE none seen Not Available [address], [address], 05/15/2024 17:02:35 05/15/20 24 05/15/2024 URINE , MICRO SCOPI C yeast NONE SEEN none seen Not Available [address], [address], 05/15/2024 17:02:35 05/15/20 24 05/15/2024 URINE , MICRO SCOPI C squamous epithelial cells 3 hpf 0-5 Not Available [address], [address], 05/15/2024 17:02:35 05/15/20 24 05/15/2024 URINE , MICRO SCOPI C mucous NONE SEEN none seen Not Available [facility] [address] [facility], [place], [address], 05/15/2024 17:02:35 10/23/20 23 10/23/2023 US, retro [...] cysts. Readin suman Physic brendon: Dustin Gordon [facility] ([facility]) [address], [place], [address], 10/24/2023 07:40:14 11/19/19 24 11/07/2023 LDCT, chest , for lung cance r scree suzie No observ ation record ed. [facility] Diagnosit Imaging Dept [address] [place] [address], [address], 11/19/2023 10:17:36 11/19/19 24 11/19/2023 CT, chest No observ ation record ed. [facility] [address] [place] [address], [address], 12/03/2023 14:26:26 11/19/19 24 11/19/2023 CT, chest No observ ation record ed. [facility] Diagnosit Imaging Dept [address] [place], [address], 12/03/2023 14:26:27 04/30/20 24 04/30/2024 US, abdom [...] Readin g Physic brendon: Brad Bernal ms [facility] (Imaging) [address], [place], [address], 05/01/2024 09:17:50 Result Notes None recorded. Problems Name Problem SNOMED Code Status Onset Date Resolution Date Notes Provider Name and Address Organization Details Recorded Time Hyperten sive disorder 70608480 Completed 12/25/2016 Chhaya Sosa NP [address] [place] [address], [address] , [facility] 3 13:27:23 Tobacco user 929301449 Active Started smoking at 16 ; LDCT DUE Chhaya Sosa NP [address] [place] [address], [address] , [facility] 3 12:50:21 Chronic obstruct abigail pulmonar y disease 27075169 Active Chhaya Sosa NP [address] [place] [address], , [facility] 3 13:27:23 Costal chondrit is 57483076 Active Chhaya Sosa NP [address] [place] [address], , [facility] 3 13:27:23 Shoulder pain [id number] Cali Sosa NP [address] [place] [address], , [facility] 3 13:27:23 Morbid obesity 128621551 Active Chhaya Sosa NP [address] [place] [address], , [facility] 3 13:27:23 Major depressi ve disorder 482350958 Active F32.9 = no QUENTIN Score. Please code severity or remissio n level for a QUENTIN Score. Chhaya Sosa NP [address] [place] [address], , [facility] 3 13:27:23 Hyperlip idemia 85734057 Cali Sosa NP [address] [place] [address], , [facility] 3 13:27:23 Anxiety [id number] Cali Sosa NP [address] [place] [address], , [facility] 3 13:27:23 Unexplai gerardo weight loss 790170289 Cali Sosa NP [address] [place] [address], , [facility] 3 13:27:23 Benign essentia l hyperten janay [id number] Cali Sosa NP [address] [place] [address], , [facility] 3 13:27:23 Dyspnea [id number] Cali Sosa NP [address] [place] [address], , [facility] 3 13:27:23 Standard chest X-ray abnormal 671855132 Cali Sosa NP [address] [place] [address], [address] , [facility] 3 13:27:23 Hypercal cemia 78600376 Completed 201612/25/2016 Eunice Short NP [address] [place] [address], [address] , [facility] 7 13:16:19 Primary hyperpar athyroid ism 55502313 Active 2016 Chhaya Sosa NP [address] [place] [address], [address] , [facility] 3 13:27:23 Abdomina l aortic aneurysm 061846800 Active 05/2023 no change On ultrasou nd. 3cm on abd CT 11/2016. 3.7x3.7 cm on US 04/10/22 essentia lly stable from 10/03/21 (3.6x3.6 cm) Chhaya Sosa NP [address] [place] [address], , [facility] 3 20:31:55 Osteopen ia 598285772 Completed 201612/16/2019 Eunice Short NP [address] [place] [address], , [facility] 0 20:33:00 Knee pain Active 2016 Chhaya Sosa NP [address] [place] [address], , [facility] 3 13:27:23 Osteopor osis 32827277 Active 2019 Chhaya Sosa NP [address] [place] [address], , [facility] 3 13:27:23 Osteoart hritis of knee 424322388 Active 2020 Eunice Short NP [address] [place] [address], [address] , [facility] 1 18:32:43 Hyperten sive disorder 05418590 Active 2021 Chhaya Sosa NP [address] [place], [address] , [facility] 3 13:27:23 Vitamin D deficien cy 57026977 Active 2021 Chhaya Sosa NP [address] [place], [address] , [facility] 3 13:27:23 Adenomat ous polyp of colon 143147008 Active 2022 2020, repeat in 3 yrs Chhaya Sosa NP [address] [place], [address] , [facility] 3 16:46:35 Fracture of fibula 39952363 Active 01/31 left Chhaya Sosa NP [address] [place] [address], [address] , [facility] 3 10:21:52 Admissio n to residential facility Active 08/0407/15/2024 an did Open reductio n internal fixation fx intertro shelleyi c. going to [facility]. 01/31 adm to [facility] [place] [facility] for fx fibula Chhaya Sosa NP [address] [place] [address], [address] , [facility] 4 16:09:14 Fall Active 2023 [facility] D/C Demetrice Ringer null, [facility] 4 14:40:47 Intertro chanteri c fracture 721147273 Active 2023 [facility] D/C Demetrice Ringer null, [facility] 4 14:41:10 Fracture of femur 54782455 Active 2023 [facility] d/c Demetrice Ringer null, [facility] 4 09:38:54 Problem Notes None recorded. Procedures Surgical History Date Name Laterality Status Provider Name and Address Organization Details Recorded Time 12/01/19 25 Smoking cessation counseling cancelled ROYA Vanessa [facility] 11/30/2024 14:27:11 12/01/19 25 Medicare Wellness Visit cancelled Sera Livingston Yoselin [facility] 11/30/2024 14:26:21 09/15/20 24 Post hospital/SNF follow-up/Trans itional Care cancelled Talwendiyung Dustin [facility] 09/15/2024 10:22:13 02/21/20 19 Smoking cessation counseling completed Staci Barahona [facility] 02/20/2019 10:19:13 11/13/19 19 Smoking cessation counseling completed Jessenia Reynoso RN, BSN [facility] 11/13/2018 11:08:20 11/13/19 19 Carbon Monoxide Testing completed Jessenia Reynoso RN, BSN [facility] 11/13/2018 11:08:20 05/06/20 18 Smoking cessation counseling completed Flora Samuel RN [facility] 05/06/2018 10:51:44 05/06/20 18 Medicare Wellness Visit completed Flora Samuel RN [facility] 05/06/2018 10:51:33 05/06/20 18 Carbon Monoxide Testing completed Flora Samuel RN [facility] 05/06/2018 10:51:44 05/06/20 18 Advanced Care Planning completed Eunice Short NP [address] [place] [address], [address] 05/07/2018 21:10:04 09/27/20 17 Smoking cessation counseling completed Amelie Flood LPN [facility] 09/27/2017 15:44:31 09/27/20 17 Carbon Monoxide Testing completed Amelie Flood LPN [facility] 09/27/2017 15:44:31 08/13/20 17 Smoking cessation counseling completed Sera Livingston [facility] 08/13/2017 11:45:27 08/13/20 17 POC Urinalysis Testing completed Sera Livingston [facility] 08/13/2017 11:39:25 05/16/20 17 Smoking cessation counseling completed Nelly Burnette CMA [facility] 05/16/2017 13:26:24 05/16/20 17 Suture/staple Removal completed Eunice Short NP [address] [place], [address], [facility] 05/16/2017 14:01:29 04/29/20 17 Smoking cessation counseling completed Donna Gray [facility] 04/29/2017 12:04:30 04/29/20 17 Carbon Monoxide Testing completed Donna Gray [facility] 04/29/2017 12:04:30 04/12/20 17 Smoking cessation counseling completed Sirena Catalan [facility] 04/12/2017 08:33:57 04/12/20 17 Carbon Monoxide Testing completed Sirena Catalan [facility] 04/12/2017 08:45:15 03/25/20 17 Smoking cessation counseling completed Nelly Burnette [facility] 03/25/2017 11:14:27 03/25/20 17 Carbon Monoxide Testing completed Nelly Burnette [facility] 03/25/2017 11:19:34 03/12/20 17 [address]: Therapeutic Exercise completed Paige Mccarty, PT [address] [place], [address], [facility] 03/12/2017 22:19:10 03/11/20 17 Smoking cessation counseling completed Isabella Spain [facility] 03/11/2017 09:20:38 03/11/20 17 Medicare Wellness Visit completed Isabella Spain [facility] 03/11/2017 09:20:04 03/11/20 17 Carbon Monoxide Testing completed Isabella Spain [facility] 03/11/2017 09:33:13 03/11/20 17 Medicare Risk for Falls Screen completed Isabella Spain [facility] 03/11/2017 09:28:14 02/19/20 17 [id number]: Therapeutic Exercise completed Paige Mccarty, PT [address] [place], [address], [facility] 02/19/2017 07:58:08 02/09/20 17 Smoking cessation counseling completed KIMBERLYN Ramos [address] [place], [address], [facility] 02/08/2017 16:42:38 02/09/20 17 POC Urinalysis Testing completed Evelyn Raphaelkatharinejose antonio [facility] 02/08/2017 16:22:27 01/01/20 17 Smoking Cessation Counselling completed Paige Mccarty, PT [address] [place], [address], [facility] 01/01/2017 10:09:35 01/01/20 17 [id number]: PT Eval, Moderate Complexity completed Paige Mccarty, PT [address] [place], [address], [facility] 01/02/2017 21:17:15 12/25/19 17 Smoking cessation counseling completed Nelly Burnette [facility] 12/25/2016 16:10:51 12/25/19 17 Carbon Monoxide Testing completed Nelly Burnette [facility] 12/25/2016 16:17:37 08/07/20 16 Smoking cessation counseling completed Nelly Burnette [facility] 08/07/2016 15:35:08 08/07/20 16 Carbon Monoxide Testing completed Nelly Burnette [facility] 08/07/2016 15:42:39 08/07/20 16 POC Urinalysis Testing completed Nelly Burnette [facility] 08/15/2016 15:26:49 07/06/20 16 Smoking cessation counseling completed Ashley [facility] 07/06/2016 10:38:50 07/06/20 16 Carbon Monoxide Testing completed Ashley [facility] 07/06/2016 10:54:18 06/22/20 16 55132: PT Evaluation completed Paige Mccarty, PT [address] [place], [address], [facility] 06/23/2016 22:35:11 06/08/20 16 [facility] 10:30:42 06/08/20 16 Carbon Monoxide [facility]08[facility]2016 10:35:43 03/09/20 16 Smoking cessation counseling completed Nelly Burnette [facility] 03/09/2016 11:16:13 03/09/20 16 Medicare Wellness Visit completed Nelly Burnette [facility] 03/09/2016 11:15:14 03/09/20 16 Carbon Monoxide Testing completed Nelly Burnette [facility] 03/09/2016 11:30:10 03/09/20 16 Medicare Risk for Falls Screen completed Nelly Burnette [facility] 03/09/2016 11:30:34 07/28/20 15 Smoking cessation counseling completed Nelly Burnette [facility] 07/28/2015 11:00:21 03/07/20 15 Medicare Wellness Visit completed Jolly Baumann LPN [facility] 03/07/2015 14:58:35 02/02/20 15 Smoking cessation counseling completed Viviane Kebede [facility] 02/01/2015 11:51:54 Imaging Results Imaging Date Name Status LastModified by Organization Details LastModified Time 10/23/2023 US, retroperitoneum completed [facility] (Imaging) [address], [place], [address], 10/24/2023 07:40:14 11/07/2023 LDCT, chest, for lung cancer screening completed [address] [facility] [address] [place] [address], [address], 11/19/2023 10:17:36 11/19/2023 CT, chest completed [facility] [address] [place] [address], [address], 12/03/2023 14:26:26 11/19/2023 CT, chest completed [facility] Dept [address] [place] [address], [address], 12/03/2023 14:26:27 04/30/2024 US, abdominal aorta completed yas crockett [facility] (Imaging) [address] [place], [address], 05/01/2024 09:17:50 Procedure Notes None recorded. Medical [...] Available Not Available Not Available Fluzone High-Dose 2018-20 (PF) 180 mcg/0.5 mL intramusc ular syringe inject 0.5 millilit ers intramus cularly 12/16 completed Not Available Not Available Not Available Fluzone High-Dose Quad (PF) 240 mcg/0.7 mL IM syringe ADM 0.7ML IM UTD 02/24 completed In chart already Not Available Not Available Not Available Vitals Date Recorded Body height Body mass index (BMI) Body weight Heart rate Systolic blood pressure Diastolic blood pressure Provider Name and Address Organization Details Last Updated DateTime 168.91 cm 37.9 kg/m2 871435. 7 g 81 /min 97 mm[Hg] 69 mm[Hg] Amy Bentley LPN [facility] 4 11:39:29 Date Recorded Body height Heart rate Systolic blood pressure Diastolic blood pressure Provider Name and Address Organization Details Last Updated DateTime 11/19/2023 168.91 cm 80 /min 114 mm[Hg] 78 mm[Hg] Flora Quijano , A [facility] 11/19/2023 09:28:48 Date Recorded Body height Systolic blood pressure Diastolic blood pressure Provider Name and Address Organization Details Last Updated DateTime 04/23/2024 168.91 cm 180 mm[Hg] 148 mm[Hg] Haley Sharma CMA [facility] 04/23/2024 11:34:08 Date Recorded Systolic blood pressure Diastolic blood pressure Provider Name and Address Organization Details Last Updated DateTime 04/23/2024 180 mm[Hg] 92 mm[Hg] Coreen Franks [facility] 04/23/2024 12:07:54 Date Recorded Systolic blood pressure Diastolic blood pressure Provider Name and Address Organization Details Last Updated DateTime 04/23/2024 168 mm[Hg] 90 mm[Hg] Chhaya Sosa, YAMILETH [address] [place], [address], [facility] 04/23/2024 13:41:34 Date Recorded Body height Heart rate Systolic blood pressure Diastolic blood pressure Provider Name and Address Organization Details Last Updated DateTime 05/15/2024 168.91 cm 86 /min 105 mm[Hg] 68 mm[Hg] Luis sanders [facility] 05/15/2024 13:56:54 Date Recorded Body temperature Provider Name a ut Address Organization Details Last Updated DateTime 05/15/2024 99 [degF] ADARSH FOY , ROOF [employer] [address] [place], [address] 05/15/2024 15:51:00 Date Recorded Body height Body mass index (BMI) Body weight Heart rate Systolic blood pressure Diastolic blood pressure Provider Name and Address Organization Details Last Updated DateTime 168.91 cm 38.8 kg/m2 897411. 54 g 88 /min 120 mm[Hg] 74 mm[Hg] Sera Mari user, [facility] 11:46:10 Date Recorded Systolic blood pressure Diastolic blood pressure Provider Name and Address Organization Details Last Updated DateTime 05/06/2024 127 mm[Hg] 68 mm[Hg] Margie [facility] 05/06/2024 16:02:42 Social History Question Answer Notes LastModified by Organizat ion Details LastModified Time Tobacco Smoking Status Current Every Day Smoker smokes less 1/2 ppd11-1- 10-09-23 less then 1/2 pack a day 11-13-24 6 cig a day Amy Bentley LPN [facility], [facility] 11/13/2023 11:37:21 Do You Have An Advance Directive? Yes Daughter Magno Castellon [phone] Information not available 03/08/2015 What Is Your Level Of Alcohol Consumption? None 04/12/17 Information not available 04/12/2017 What Is Your Level Of Caffeine Consumption? Moderate 2 Cups A Day Information not available 09/29/2021 What Type Of Diet Are You Following? REGULAR [email or web address] Information not available 09/06/2014 Which Illicit Or Recreational Drugs Have You Used? None 04/12/17 Information not available 04/12/2017 Education 12 [email or web address] Information no t available 09/06/2014 What Is Your Occupation? Disabled 2000 Due To Knee Arthritis Information not available 09/06/2014 Do You Use Insect Repellent Routinely? No Information not available 09/29/2021 Live Alone Or With Others? Alone [email or web address] Information not available 09/06/2014 Does The Patient Have Difficulty Speaking Fijian? No [email or web address] Information not available 09/06/2014 Does The Patient Have Difficulty Reading Fijian? No [email or web address] Information not available 09/06/2014 Patient Has Health Care Proxy Signed And In Chart Yes Daughter Magno, Copy In Chart Information not available 09/06/2014 MOLST Form Signed And In Chart 02/08/2023 Information not available 03/05/2023 CCM Consent Discussion 03/12/2023 Information not available 03/14/2023 Marital Status [email or web address] Informatio n not available 09/06/2014 Mosquito Repellent Used Routinely No Information not available 09/06/2014 What Was The Date Of Your Most Recent Tobacco Screening? 06/15/2024 Information not available 06/15/2024 How Many Children Do You Have? 7 1971, 1974, 1976, 1976 (adopted [place]), 1978, 1986, 1986. 15 Grandchildre n, 6 Gr Grand, [address] Information not available 09/07/2021 What Is Your Current Pack Years? [email or web address] [email or web address] Information not available 03/09/2016 What Is Your Relationship Status? Information not available 09/29/2021 Do You Use Your Seat Belt Or Car Seat Routinely? Yes Information not available 09/29/2021 Seat Belts Used Routinely Yes [email or web address] Information not available 09/06/2014 Are You Sexually Active? No [email or web address] Information not available 09/06/2014 Smoke Alarm In Home Yes Information not available 09/06/2014 Do You Have Smoke And Carbon Monoxide Detectors In Your Home? Yes Information not available 09/29/2021 At What Age Did You Start Smoking Tobacco? 16 [email or web address] Information not available 09/06/2014 Are You Passively Exposed To Smoke? Yes Information not available 09/29/2021 How Much Tobacco Do You Smoke? 0.5 PPD [email or web address] Information not available 05/28/2022 General Stress Level Medium [email or web address] Information not available 09/06/2014 Do You Use Sunscreen Routinely? No [email or web address] Information not available 09/06/2014 Do You Or [...] Brother Malignant tumor of lung 60 in skilled nursing Not available 09/06/2014 14:22:23 Brother Motor vehicle [...] Condition Response Thyroid Disease Y Hyperlipidemia Y Osteopenia Y RESPIRATORY Y Hypertension Y Depression Y COPD Y Gynecological HistoryNo gynecological history recorded. Obstetrics History GPAL:G 0 P 0 0 0 0 Immunizations Vaccine Type Date Status Note Provider Nam e and Address Organization Details Recorded Time Pneumococcal conjugate PCV 13 6 completed Not Available [facility] 11/28/2019 02:29:50 influenza, unspecified formulation 4 completed Not Available [facility] 02/07/2023 18:15:23 pneumococcal polysaccharide PPV23 2 completed Not Available [facility] 02/07/2023 18:15:23 influenza, unspecified formulation 2 completed Not Available [facility] 02/07/2023 18:15:23 influenza, unspecified formulation 3 completed Not Available [facility] 02/07/2023 18:15:23 zoster live 2 completed Not Available [facility] 02/07/2023 18:15:23 influenza, unspecified formulation 5 completed Not Available [facility] 02/07/2023 18:15:23 Tdap 5 completed Not Available [facility] 02/07/2023 18:15:23 Pneumococcal conjugate PCV 13 6 completed Not Available [facility] 02/07/2023 18:15:23 influenza, unspecified formulation 6 completed Not Available [facility] 02/07/2023 18:15:23 pneumococcal polysaccharide PPV23 7 completed Not Available [facility] 02/07/2023 18:15:23 influenza, unspecified formulation 7 completed Not Available [facility] 02/07/2023 18:15:23 influenza, unspecified formulation 8 completed Not Available [facility] 02/07/2023 18:15:23 Influenza, split virus, quadrivalent, preservative 9 completed Not Available [facility] 02/07/2023 18:15:23 zoster recombinant 9 completed Not Available [facility] 02/07/2023 18:15:23 Influenza, split virus, quadrivalent, preservative 0 completed Not Available [facility] 02/07/2023 18:15:23 Influenza, high-dose, quadrivalent, PF 2 completed NANDINI Abdullahi [address] [place], [address], [facility] 08/13/2022 14:53:00 COVID-19, mRNA, LNP-S, PF, 30 mcg/0.3 mL dose 1 completed Not Available [facility] 02/07/2023 18:15:23 COVID-19, mRNA, LNP-S, PF, 30 mcg/0.3 mL dose 1 completed Not Available [facility] 02/07/2023 18:15:23 Influenza, high-dose, quadrivalent, PF 3 completed Jude Snowden MD [address] [place] [address], [address], [facility] 07/31/2023 17:03:12 Influenza, high-dose, quadrivalent, PF 1 completed Not Available [facility] 02/07/2023 18:15:23 Past Encounters Encounter ID Performer Location Encounter Start Date Encounter Closed Date Diagnosis/Indication Diagnosis SNOMED-CT Code Diagnosis ICD10 Code Diagnosis Note [id number] FP, C, OFFICE [address] [place] [address] 6 09/06/2014 13:00:24 09/06/2014 14:33:47 Hypertensive disorder 61153078 Tobacco user 731339140 Chronic ob structive pulmonary disease 95674859 Costal chondritis 30806508 [id number] Jolly Baumann LPN FP, C, OFFICE [address] [place] [address] 6 09/27/2014 11:04:03 09/27/2014 11:58:24 Hypertensive disorder 66305295 Shoulder pain 09837733 [id number] Nelly Burnette CMA FP, C, OFFICE [address] [place] [address] 6 10/11/2014 11:22:07 10/11/2014 13:51:32 Hypertensive disorder 95719195 Tobacco user 446747361 Shoulder pain 72798248 [id number] Eunice Short NP FP, C, OFFICE [address] [place] [address] 11/01/2014 10:59:51 11/01/2014 11:41:21 Hypertensive disorder 31127204 Shoulder pain 88785770 Tobacco user 538812565 [id number] Viviane Kebede CMA FP, [facility], OFFICE [address] [place] [address] 6 12/06/2014 09:58:29 12/06/2014 10:57:34 Hypertensive disorder 29526443 Morbid obesity 358232198 Tobacco user 769438316 Chronic ob structive pulmonary disease 44929689 [id number] Eunice Short NP FP, [facility], OFFICE [address] [place] [address] 01/04/2015 13:51:17 01/04/2015 15:24:56 Hypertensive disorder 02012252 Tobacco user 319196584 Shoulder pain 67747227 [id number] Jolly Baumann LPN FP, [facility], OFFICE [address] [place] [phone] 02/01/2015 11:29:20 02/01/2015 12:34:46 Benign essential hypertension 7605774 Blood pressure at goal Tobacco user 833983558 Major depr essive disorder 873876593 Morbid obesity 702949697 [id number] Graciela BREAUX, [facility], OFFICE [address] [place] [address] 6 03/07/2015 14:33:45 03/07/2015 15:38:53 Adult health examination 006589703 see Risk Assessment and Lifestyle Change Counseling section above Counseling [id number] Administra tion of diphtheria, pertussis, and tetanus vaccine 626298954 Tobacco user 608934689 Shoulder pain 40136627 Administra tion of bacterial and viral vaccine 441242632 Morbid obesity 436810069 Major depr essive disorder 130051619 Hyperlipidemia 97266596 Lipids in normal range, but CVD risk 25% due to smoking and HTN. In addition is obese and sedentary lifestyle increasing risk further. Therefore could benefit from statin therapy. [id number] Eunice Short NP FP, [facility], OFFICE [address] [place] [phone] 6 07/28/2015 10:37:43 07/28/2015 11:29:31 Lifestyle 258908993 Tobacco user 215209892 Anxiety 90463998 [id number] Eunice Short NP FP, [facility], OFFICE [address] [place] [address] 6 09/07/2015 13:59:43 09/07/2015 14:45:35 Chronic obstructive pulmonary disease 85279694 J44.9 [id number] Eunice Short NP FP, [facility], OFFICE [address] [place] [address] 6 09/09/2015 14:41:26 09/09/2015 15:19:44 Benign essential hypertension 0294533 I10 Blood pressure at goal Mixed hyperlipidemia 267 632552 E78.2 Continue to work on diet and exercise as discussed Tobacco user 352256362 Z 72.0 Chronic ob structive pulmonary disease 61852096 J44.9 [id number] YAMILETH Christianson, [facility], OFFICE [address] [place] [address] 6 03/09/2016 10:55:03 03/09/2016 12:23:53 Morbid obesity 319617192 E66.01 Major depr essive disorder 072931794 F32.9 Chronic ob structive pulmonary disease 66778178 J44.9 Adult heal th examination 934475883 Z00.00 see Risk Assessment and Lifestyle Change Counseling section above Counseling 923321808 Z71 .9 Mixed hyperlipidemia 267 206830 E78.2 Cholestero l is at goal Continue to work on diet and exercise as discussed Nicotine dependence 5629 4008 Z87.891 Tobacco user 217321963 Z 72.0 Hyperlipidemia 29972796 E78.5 Active or passive immunization 678324871 Z23 Unexplaine d weight loss 303350655 R63.4 [id number] YAMILETH Christianson, [facility], OFFICE [address] [place] [address] 03/15/2016 15:00:37 03/15/2016 15:57:06 Benign essential hypertension 9174683 I10 Morbid obesity 237022786 E66.01 Dyspnea 625916118 R06.00 Tobacco user 585924431 Z 72.0 [id number] YAMILETH Christianson, [facility], OFFICE [address] [place] [address] 6 04/26/2016 11:27:30 04/26/2016 12:35:10 Acute upper respiratory infection 21669235 J06.9 Educated patient that URI is a [...] to resolve in 2-4 weeks. Acute bronchitis 3016209 2 J20.9 [id number] Eunice Short NP , [facility], OFFICE [address] [place] [address] 6 06/08/2016 10:25:28 06/08/2016 11:14:21 Benign essential hypertension 1029341 I10 Blood pressure at goal Cigarette smoker 3980904 7 F17.210 Tobacco user 467795206 Z 72.0 Major depr essive disorder 229207980 F32.9 Osteopenia 773333069 M85 .80 [id number] Paige Mccarty, PT Physical Therapy, [address] [address] 06/22/2016 15:00:50 06/25/2016 07:43:41 Knee pain 19958916 M25.569 Low back pain 915523194 M54.5 Abnormal gait 07463068 R 26.9 [id number] Eunice Short NP , [facility], OFFICE [address] [place] [address] 6 07/06/2016 10:36:56 07/06/2016 11:12:26 Tobacco user 479662301 Z72.0 Cigarette smoker 9319237 7 F17.210 hopefully [place] hattie Rai will be approved Major depr essive disorder 499204257 F32.9 stable on sertraline Benign ess ential hypertension 8623937 I10 Blood pressure not at goal. Resume Benicar HCT and FU in 4-6 wks to recheck. Abdominal pain 46797076 R10.9 [id number] Nelly Burnette CMA FP, [facility], OFFICE [address] [place] [address] 6 08/07/2016 15:32:02 08/07/2016 16:51:27 Benign essential hypertension 5219971 I10 Blood pressure at goal, continue current meds. on 3 agents. Cigarette smoker 2398461 7 F17.210 Plans to start the Chantx next month Tobacco user 021300764 Z 72.0 Urinary tr act infectious disease 46529812 N39.0 Patient instructed to push fluids, to follow up for persistent or worsening symptoms or fever or back pain. [id number] Eunice Short NP FP, [facility], OFFICE [address] [place] [phone] 6 09/10/2016 16:29:26 09/10/2016 17:04:55 Shoulder pain 16870291 M25.512 Benign ess ential hypertension 7422697 I10 Blood pressure at goal Tobacco user 026268007 Z 72.0 Abdominal pain 77821352 R10.9 FU GI as planned. [id number] Eunice Short NP FP, [facility], OFFICE [address] [place] [address] 6 12/25/2016 16:04:41 12/26/2016 12:46:08 Cigarette smoker 41916921 F17.210 Tobacco user 799015174 Z 72.0 Multifacto rial gait problem 361882826 R26.89 Multiple renal cysts 253 128497 N28.1 Abdominal aortic aneurysm without rupture 82202180 I71.4 [id number] Paige Mccarty, PT Physical Therapy, [address] [address] 01/01/2017 09:45:00 01/03/2017 08:02:33 Knee pain 01414687 M25.144 [id number] KIMBERLYN Ramos FP, [facility], OFFICE [address] [place] [address] 6 02/08/2017 16:21:33 02/11/2017 10:05:50 Urinary tract infectious disease 37349944 N39.0 -Bactrim as directed-c ulture pending-fl uids-follo w up if no improvemen t in 3 days-prope r whipping technique- cotton underwear Cigarette smoker 8885556 7 F17.210 -start using the patches-gu ms as needed Tobacco user 052705190 Z 72.0 [id number] Paige Mccarty, PT Physical Therapy, [address] [address] 02/18/2017 17:06:31 02/19/2017 09:47:16 Knee pain 00120466 M25.569 Low back pain 724228012 M54.5 Abnormal gait 17825173 R 26.9 [id number] Eunice Short NP FP, [facility], OFFICE [address] [place] [id number] 6 03/11/2017 09:17:31 03/11/2017 10:05:00 Adult health examination 246613005 Z00.00 see Risk Assessment and Lifestyle Change Counseling section above Counseling 088410875 Z71 .9 Cigarette smoker 9114188 7 F17.210 Tobacco user 986861360 Z 72.0 Benign ess ential hypertension 3592944 I10 Blood pressure NOT at goal. Mixed hyperlipidemia 267 173276 E78.2 continue atorvastat in. Primary hyperparathyroidism 98794515 E21.0 [id number] Paige Mccarty, PT Physical Therapy, [address] [address] 03/12/2017 16:24:31 03/13/2017 07:11:43 Low back pain 450008415 M54.5 Knee pain 68691823 M25.5 69 Abnormal gait 33789155 R 26.9 [id number] Eunice Short NP FP, [facility], OFFICE [address] [place] [address]46[address] 6 03/25/2017 11:08:57 03/25/2017 11:56:01 Benign essential hypertension 0739620 I10 Blood pressure at goal Cigarette smoker 6815355 7 F17.210 Tobacco user 201277369 Z 72.0 [id number] Jude Snowden MD Endocrino logy, [address] [address] 04/12/2017 08:30:36 04/12/2017 09:23:12 Cigarette smoker 99817868 F17.210 Tobacco user 153777374 Z 72.0 Tobacco de pendence syndrome 24692256 F17.290 -stop cigarette smoking -add nicotrol inhaler, inhale by puffing continuous ly for up 20min; use up to 16 cartridges per day; gradually reduce dose over 3mo; Insert cartridge into inhaler and push hard until it pops into place. Replace mouthpiece and twist the top and bottom so that markings do not line up. Clean mouthpiece regularly with soap and water Primary hyperparathyroidism 95993717 E21.0 -labs and bone density 11/28, follow up Dr. Snowden 12/29 Vitamin D deficiency 347 19824 E55.9 -calcium tabs 2 times daily by mouth 315 mg - 250units d [id number] Marily Brownlee MD FP, [facility], OFFICE [address] [place] [address]24[address] 6 04/29/2017 11:22:19 04/29/2017 12:49:35 Cigarette smoker 52883797 F17.210 Tobacco user 074340334 Z 72.0 Screening mammography 24 956168 Z12.31 Osteoarthr itis of knee 268357957 M17.0 Shoulder pain 63278309 M 25.672 [id number] Eunice Short NP , [facility], OFFICE [address] [place] [address] 12892-675 6 05/16/2017 13:24:19 05/16/2017 15:09:41 Cigarette smoker 16954744 F17.210 Tobacco user 007476149 Z 72.0 Facial laceration 213343 008 S01.81XA Gastroesop hageal reflux disease 266043066 K21.9 Morbid obesity 998655867 E66.01 Knee pain 49860492 M25.5 69 Bilateral, worse on R. [id number] YAMILETH Kessler, [facility], OFFICE [address] [place] [address] 34069[address] 6 08/13/2017 11:37:38 08/13/2017 14:13:52 Urinary tract infectious disease 81865935 N39.0 Patient instructed to push fluids, to follow up for persistent or worsening symptoms or fever or back pain. Cigarette smoker 5252042 7 F17.210 not ready to quit. has patch at home and will consider starting it Tobacco user 330383932 Z 72.0 [id number] Eunice Short NP FP, [facility], OFFICE [address] [place] [address] 87[address] 6 09/27/2017 15:21:15 09/27/2017 16:18:53 Benign essential hypertension 0830331 I10 Blood pressure at goal Cigarette smoker 5999085 7 F17.210 Tobacco user 746953869 Z 72.0 Knee pain 59900040 M25.5 69 Bilateral, worse on R. Chronic ob structive pulmonary disease 37573423 J44.9 [id number] Eunice Short NP FP, [facility], OFFICE [address] [place] [address] 05/06/2018 10:36:03 05/06/2018 11:50:31 Adult health examination 102105369 Z00.00 see Risk Assessment and Lifestyle Change Counseling section above Counseling 911203133 Z71 .9 Depression screening 171 583641 Z13.89 depression screening tool administer ed, entered into emr, scored and discussed, time greater than 7.5 minutes Advance di rective discussed with patient 954667346 Z71.89 Cigarette smoker 6249412 7 F17.210 Tobacco user 355296359 Z 72.0 Hyperlipidemia 84884075 E78.5 Benign ess ential hypertension 3255594 I10 Blood pressure at goal Primary hyperparathyroidism 35227566 E21.0 [id number] Eunice Short NP FP, [facility], OFFICE [address] [place] [address] 11/13/2018 11:05:40 11/13/2018 11:44:52 Benign essential hypertension 4902300 I10 Blood pressure at goal Cigarette smoker 5517247 7 F17.210 Tobacco user 789399008 Z 72.0 Candidal intertrigo 2661 10765 B37.2 Chronic ob structive pulmonary disease 80508189 J44.9 Morbid obesity 534696743 E66.01 Primary hyperparathyroidism 64273927 E21.0 Major depr essive disorder 769428796 F32.9 stable on sertraline [id number] Jake Jimenez PA-C FP, [facility], OFFICE [address] [place] [address] 6 02/20/2019 10:16:21 02/20/2019 13:33:48 Cigarette smoker 85256219 F17.210 Discussed and encourage smoking cessation. Patient contemplat ing but not ready. Encourage follow up if needing assistance with this. Abdominal aortic aneurysm without rupture 67618375 I71.4 NO abdominal pain has had up to date imaging. Will contact us if any issues. Intramuscu lar contusion 197360208 T14.8XXA Refer to discussion section for complete summary of visit. [id number] Eunice Short NP , [facility], OFFICE [address] [place] [address] 06/04/2019 11:08:40 06/04/2019 12:13:47 Adult health examination 998677420 Z00.00 see Risk Assessment and Lifestyle Change Counseling section above Counseling 176172405 Z71 .9 Advance di rective discussed with patient 715374716 Z71.89 Mixed hyperlipidemia 267 753081 E78.2 continue atorvastat in. Cigarette smoker 8400416 7 F17.210 Tobacco user 603463941 Z 72.0 Urinary tr act infectious disease 91192223 N39.0 Patient instructed to push fluids, to follow up for persistent or worsening symptoms or fever or back pain. Screening mammography 24 867120 Z12.31 Benign ess ential hypertension 9055676 I10 Blood pressure at goal [id number] Vicky Avendaño PA-C , [facility], OFFICE [address] [place] [address] 06/19/2019 17:07:14 06/24/2019 15:07:53 Urinary tract infectious disease 93504413 N39.0 - starting new antibiotic and sending for culture, minimal improvemen t with macrobid- Patient instructed to push fluids, to follow up for persistent or worsening symptoms or fever or back pain. Cigarette smoker 2672728 7 F17.210 - not ready to quit cigars Tobacco user 450407617 Z 72.0 [id number] YAMILETH Christianson, [facility], OFFICE [address] [place] [address] 6 12/16/2019 15:29:54 12/18/2019 14:21:58 Essential hypertension 89659441 I10 Mixed hyperlipidemia 267 558954 E78.2 Cholestero l is at goal Cholestero l is not at goal Continue to work on diet and exercise as discussed Cigarette smoker 7966545 7 F17.210 Tobacco user 225006221 Z 72.0 Poor balance 853692450 R 27.8 Osteoporosis 49873465 M8 1.0 BMD test 05/2018 Chronic ob structive pulmonary disease 35366845 J44.9 Morbid obesity 327406519 E66.01 Primary hyperparathyroidism 64922921 E21.0 [id number] Eunice Short NP , [facility], OFFICE [address] [place] [address] 06/09/2020 11:18:53 06/10/2020 15:13:48 Major depressive disorder 294029320 F32.9 stable on sertraline , see PHQ9 Adult heal th examination 660331302 Z00.00 see Risk Assessment and Lifestyle Change Counseling section above Counseling 848564243 Z71 .9 including cardiovasc ular risk reduction counseling Depression screening 171 205084 Z13.89 depression screening tool administer ed, entered into emr, scored and discussed, time greater than 7.5 minutes. Negative screening reviewed with patient. Screening for alcohol abuse 279832242 Z13.39 no alcohol at all Benign ess ential hypertension 5442148 I10 Hyperlipidemia 79235723 E78.5 Anxiety 09947584 F41.9 Essential hypertension 25005729 I10 Mixed hyperlipidemia 267 351878 E78.2 on atorvastat in Cigarette smoker 2601660 7 F17.210 Tobacco user 785608007 Z 72.0 Tinea corporis 06024560 B35.4 [id number] Pino Ureña MD , [facility], OFFICE [address] [place] [address] 6 04/18/2020 14:44:16 04/19/2020 09:35:28 Urinary tract infectious disease 89443774 N39.0 Patient instructed to push fluids, to follow up for persistent or worsening symptoms or fever or back pain. Use the antibiotic . [id number] Vicky Avendaño PA-C , [facility], OFFICE [address] [place] [address] 6 10/21/2020 11:57:39 10/21/2020 15:23:14 Cigarette smoker 88671286 F17.210 -intereste d in quitting -limited success in the past with patches and gum/lozeng e -recommend nicotrol inhaler, patient expresses interest, advised about cost/unkno wn insurance coverage Injury of hand 545764483 S69.91XA -acute injury of right hand secondary to fall -will xray -advised RICE, NSAIDS/tyl enol for pain relief Injury of knee 738885178 S89.92XA -acute injury of left knee secondary to fall -will xray -advised RICE, NSAIDs/tyl enol for pain relief Injury of nose 92322268 S09.92XA -acute injury of nose secondary to fall -low suspicion for fracture of nasal bones, patient reports structure of nose does not appear changed -will xray -advised ice, NSAIDs/tyl enol for pain relief -return precaution s reviewed [id number] Vicky Avendaño PA-C FP, [facility], OFFICE [address] [place] [address] 10/26/2020 12:05:06 10/27/2020 15:44:13 Injury of hand 703034103 S69.91XA -acute injury of right hand secondary to fall, subsequent encounter -x-ray showed no evidence of fracture, reviewed with pt -advised RICE and tylenol for pain relief Injury of knee 406262036 S89.92XA -acute injury of left knee secondary to fall, subsequent encounter -x-ray showed no evidence of fracture, reviewed with pt -advised RICE and tylenol for pain relief Injury of nose 74333214 S09.92XA -acute injury of nose secondary to fall, subsequent encounter -x-ray showed non-displa florencia fracture, no cosmetic changes, reviewed with pt -advised ice and tylenol for pain relief -return precaution s reviewed [id number] Eunice Short NP FP, [facility], OFFICE [address] [place] [address] 01/19/2021 10:45:26 01/20/2021 14:27:22 Benign essential hypertension 9401738 I10 Morbid obesity 290644847 E66.01 Cigarette smoker 2451019 7 F17.210 Tobacco user 060474406 Z 72.0 Primary hyperparathyroidism 64851378 E21.0 Will check calcium q 6months. Chronic ob structive pulmonary disease 77889102 J44.9 At high risk for fall 45 11803083 30219819 Z91.89 Has fall alarm, power chair, wheelchair for in home use and walker. [id number] Wendy Hopson NP , [facility], OFFICE [address] [place] [address] 6 02/24/2021 14:22:54 02/27/2021 15:49:47 Backache 062795064 M54.9 left sided back ache x5 days. [...] phone. no distress or fever Cigarette smoker 7610578 7 F17.210 not ready to quit. has patch at home and will consider starting it Tobacco user 419583392 Z 72.0 [id number] Chhaya Sosa NP FP, [facility], OFFICE [address] [place] [address] 6 03/02/2021 17:10:00 03/06/2021 16:06:09 Tobacco user 793743090 Z72.0 Abdominal pain 02005865 R10.9 -reassuran ce as the pain seems to be musculoske letal-tyle nol 1000 mg every 8 hours as needed-alexia l with any worsening pain or if you want to do PT [id number] ARLENE MENENDEZ MD , [facility], OFFICE [address] [place] [address] 6 09/29/2021 13:09:22 09/29/2021 14:07:17 Adult health examination 941777532 Z00.00 see Risk Assessment and Lifestyle Change Counseling section above Counseling 622550813 Z71 .9 including cardiovasc ular risk reduction counseling Depression screening 171 693129 Z13.31 depression screening tool administer ed, entered into emr, scored and discussed, time greater than 7.5 minutes Screening for alcohol abuse 886108996 Z13.39 no alcohol at all Anxiety 76713096 F41.9 controlled , continue meds Benign ess ential hypertension 1377100 I10 Chronic ob structive pulmonary disease 49258293 J44.9 Discussed smoking cessation x 3 m., not ready to quit at this time Morbid obesity 850190549 E66.01 discussed portion control. pt not able to exercise meaningful ly due to shortness of breath and knee pain with weight bearing. Osteoporosis 88939918 M8 1.0 BMD test 05/2018 - just had BMD couple of weeks ago at [place], awaiting results. Tobacco user 954262537 Z 72.0 see above Essential hypertension 77621628 I10 continue current regimen Mixed hyperlipidemia 267 196240 E78.2 Cholestero barrera is at [facility] to work on diet and exercise as discussed Cigarette smoker 2522268 7 F17.210 Major depr essive disorder 468726921 F32.0 Abdominal aortic aneurysm without rupture 08459312 I77.811 recheck abd aorta, small ectasia 3 cm on last US, I can't find CT results. [id number] Eunice Short NP , [facility], OFFICE [address] [place] [address] 09/07/2021 14:42:55 09/07/2021 15:50:48 Hyperlipidemia 96700976 E78.5 Essential hypertension 08234197 I10 Tobacco user 019762592 Z 72.0 > 30 pack yr history, Yrly LDCT screening for lung cancer - last done 10/2020 Primary hyperparathyroidism 00053215 E21.0 Will check calcium q 6months. Osteoporosis 01822202 M8 1.0 BMD test 05/2018 Chronic ob structive pulmonary disease 48252008 J44.9 Major depr essive disorder 726814685 F32.9 stable on sertraline , see PHQ9 Benign ess ential hypertension 5646091 I10 [id number] ARLENE MENENDEZ MD FP, [facility], OFFICE [address] [place] [address] 04/06/2022 14:18:57 04/06/2022 15:33:08 Morbid obesity 353398243 E66.01 discussed portion control. pt not able to exercise meaningful ly due to shortness of breath and knee pain with weight bearing.Di scussed Harley Behaviors for Weight Loss: - Track intake using food diary - may use [employer] al or written journal - Measure out [...] , Relevant, and Time-sensi tive) Primary hyperparathyroidism 25140336 E21.0 did not want to see endocrinol ogist, but since she has worsening osteoporos is, to reduce risk of fracture, I recommend seeing Dr. Snowden. She now agrees Major depr essive disorder 612948989 F32.0 controlled on sertraline Abdominal aortic aneurysm without rupture 59752336 I77.811 latest 09/2021 3.6 cm increased from 3 cm. Repeat now. Chronic ob structive pulmonary disease 76181297 J44.9 Discussed smoking cessation x 3 m., not ready to quit at this timecontin ue LDCT yearly at [facility] Essential hypertension 33276896 I10 continue current regimen Tobacco user 976067803 Z 72.0 see above Osteoporosis 92557169 M8 1.8 worsening. Check PTH and refer to endocrinol ogist [id number] NANDINI Abdullahi , [facility], OFF[address] [place] [address] 05/29/2022 17:36:30 05/31/2022 11:36:05 Urinary tract infectious disease 01920139 N39.0 - symptoms and POC UA consistent [...] or persistent symptoms Increased frequency of urination 041392526 R35.0 Benign ess ential hypertension 2313084 I10 BP above goalencour aged to set up BP check once feeling better COVID-19 246847894 U07.1 pos 05/25, symptom onset 6 days agodiscuss ed no longer a candidate for paxlovid, given she's feeling better she's also deferred Mab infusion txcontinue OTC care [id number] NANDINI Abdullahi FP, [facility], OFFICE [address] [place] [address] 06/29/2022 14:08:51 06/29/2022 14:42:11 Tobacco user 468962820 Z72.0 1/2 ppd mini cigars, not interested in quitting at this time Benign ess ential hypertension 4345674 I10 BP above goalincrea se diltiazem to 240mg, continue olmesartan /HCTZ 40/25mgf/u in a couple weeks to reassess, encouraged home readings and logging in the interim Chronic ob structive pulmonary disease 47350211 J44.9 lungs CTA today, not using combivent often/does n't feel she needs to Morbid obesity 239664288 E66.01 limited exercise due to knee arthritisr eviewed healthy eating habits [id number] NANDINI Abdullahi FP, [facility], OFF[address] [place] [address] 08/13/2022 14:16:08 08/20/2022 15:26:04 Tobacco user 682479182 Z72.0 1/2 ppd mini cigars, not interested in quitting at this timecessat ion discussed and encouraged Active or passive immunization 104166940 Z23 will do flu vaccine today Benign ess ential hypertension 7603739 I10 BP still above goal though improved from last visitincre ase diltiazem to 300mg, continue olmesartan /HCTZ 40/25mgBP cuff sent to karlene to start home checksf/u in 1 month to reassess Morbid obesity 332163904 E66.01 limited exercise due to knee arthritisr eviewed healthy eating habits [id number] Chhaya Sosa NP FP, [facility], OFFICE [address] [place] [address] 12/27/2022 13:31:55 12/27/2022 14:22:40 Adult health examination 612697477 Z00.00 Depression screening 171 777263 Z13.31 depression screening tool administer ed Screening for alcohol abuse 698301786 Z13.39 Alcohol use screening tool administer ed Essential hypertension 93553518 I10 After a discussion of treatment and medication options, which included considerat ion of the best practices in medicine, a medical plan was provided. The patient's opinions and concerns were included in this treatment plan and goal. 1. Discussed Blood Pressure goals. 2. BP GOAL is under 130/80. Pt is NOT at goal. Morbid obesity 635355598 E66.01 - -Work on healthy eating, weight loss, and exercise-C all if you want to see the nutritioni Major depr essive disorder 469374296 F32.0 -STABLE on meds Chronic ob structive pulmonary disease 48249788 J44.9 -stable on meds Tobacco user 881852766 Z 72.0 We discussed your smoking today for more than 3 minutes. Cigarette use is the leading cause of preventabl e disease, disability , and in the [place]. We talked about tools and medication s available to help you in smoking cessation. We discussed utilizing our smoking cessation employment coach and online resources. Counseled by member of primary health care team 493527764 Z71.9 Today we discussed ways to reduce [...] er may recommend taking daily aspirin. Hypercalciuria 78948144 R82.994 -check labs [id number] Chhaya Sosa NP FP, [facility], OFFICE [address] [place] [address] 03/12/2023 16:01:01 03/18/2023 08:17:41 Pain of left breast 3129352844 N64.4 Tobacco user 985984003 Z 72.0 We discussed your smoking today for more than 3 minutes. Cigarette use is the leading cause of preventabl e disease, disability , and in the [place]. We talked about tools and medication s available to help you in smoking cessation. We discussed utilizing our smoking cessation employment coach and online resources. Your personal goal: declines Gastroesop hageal reflux disease 942855322 K21.9 restart meds and follow up in 1 month Benign ess ential hypertension 2415377 I10 After a discussion of treatment and medication options, which included considerat rogelio of the best practices in medicine, a [...] . Follow up in 1 months. Dysuria 54689789 R30.0 Atopic dermatitis 157199 01 L20.9 [id number] Chhaya Sosa NP FP, [facility], OFFICE [address] [place] [address] 05/02/2023 10:09:52 05/02/2023 10:58:36 Tobacco user 721676044 Z72.0 We discussed your smoking today for more than 3 minutes. Cigarette use is the leading cause of preventabl e disease, disability , and in the [place]. We talked about tools and medication s available to help you in smoking cessation. We discussed utilizing our smoking cessation employment coach and online resources. Active or passive immunization 560726730 Z23 shingles- reminded Screening for malignant neoplasm of colon 894949186 Z12.11 declines Dysuria 70892509 R30.0 Patient with urinary symptoms.U RAJ TO DO URINE AND SHE WILL TAKE HOME W Natasha send urine for culture.Di scussed supportive and preventive measures.P atient instructed to follow up if not better or with new symptoms. Pulmonary emphysema 8743 3001 J43.9 -Patient was validated and supported in ongoing smoking cessation Vitamin D deficiency 347 42083 E55.9 Hyperparathyroidism 6699 9008 E21.3 Pain of le ft knee joint 8104008485 66058 M25.061 [id number] YAMILETH Negro, [facility], OFFICE [address] [place] [address] 05/30/2023 11:53:26 05/30/2023 12:41:44 Active or passive immunization 572039593 Z23 shingles- reminded Screening for malignant neoplasm of colon 923816933 Z12.11 Referral for a DIRECT booked colonoscop y. This patient is a healthy ASA Class 1 or 2 patient (only mild systemic disease), or a STABLE, well controlled insulin dependent diabetic. They do not have serious cardiac disease ie HI/angiopl asty within 1 year, symptomati c CHF; renal failure with CKD 4 or 5; take Coumadin, Plavix, Aggrenox, etc. Tobacco user 938733919 Z 72.0 We discussed your smoking today for more than 3 minutes. Cigarette use is the leading cause of preventabl e disease, disability , and in the [place]. We talked about tools and medication s available to help you in smoking cessation. We discussed utilizing our smoking cessation employment coach and online resources. Your personal goal: start vareniclin e New medication was discussed today with patient including risks, benefits ,possible and expected side effects. Patient understand s and is willing to begin medication as prescribed . Vitamin D deficiency 347 77301 E55.9 Pulmonary emphysema 8743 3001 J43.9 -Patient was validated and supported in ongoing smoking cessation Cigarette smoker 3221722 7 F17.210 Benign ess ential hypertension 9309656 I10 After a discussion of treatment and medication options, which included considerat ion of the best practices in medicine, a medical plan was provided. The patient's opinions and concerns were included in this treatment plan and goal. 1. Discussed Blood Pressure goals.2. BP GOAL is under 130/80. Patient IS AT GOAL.3.Fol low up in 1 months for smoking. Abdominal aortic aneurysm 797823319 I71.40 [id number] Jude Snowden MD Endocrino logy, [facility] [address] [facility] [place] [facility] [place] [address] 06/12/2023 14:52:56 06/12/2023 15:52:14 Cigarette smoker 89288491 F17.210 Tobacco user 350777340 Z 72.0 Tobacco de pendence syndrome 83330769 F17.290 -current 10cig/d-pl an to start vareniclin e, you are ready to set a date, but you will try this June Primary hyperparathyroidism 42601734 E21.0 -24h urine calcium creatinine while taking in 1000mg calcium daily Osteoporosis 79339895 M8 1.0 [id number] Pollo Castellon MD Sports Medicine, [facility] [address] [place] [address] 08/14/2023 13:35:19 08/21/2023 15:37:35 Tobacco user 149134026 Z72.0 Anabela and I did discuss smoking [...] cessation. Pain of le ft knee joint 4045857692 68937 M25.562 Anabela is a 72-year-ol d female [...] her back as needed for further care. [id number] Chhaya Sosa NP , [facility], OFFICE [address] [place] [address] 06/21/2023 09:17:58 06/25/2023 13:41:04 Tobacco user 432879368 Z72.0 We discussed your smoking today for more than 3 minutes. Cigarette use is the leading cause of preventabl e disease, disability , and in the [place]. We talked about tools and medication s available to help you in smoking cessation. We discussed utilizing our smoking cessation employment coach and online resources. Has chantix - but hasnt started. Recurrent urinary tract infection 484308347 N39.0 After a discussion of treatment and [...] or worsening symptoms. Major depr essive disorder 686360631 F32.0 -STABLE on meds [id number] NANDINI Abdullahi FP, [facility], OFFICE [address] [place] [address] 06/24/2023 17:15:42 06/26/2023 08:42:29 Tobacco user 978873331 Z72.0 We discussed your smoking today for more than 3 minutes. Cigarette use is the leading cause of preventabl e disease, disability , and in the [place]. We talked about tools and medication s available to help you in smoking cessation. We discussed utilizing our smoking cessation employment coach and online resources. Your personal goal: to quit! recently started oral vareniclin e to help - continue Active or passive immunization 512054796 Z23 Shingrix: had 1st dose Cigarette smoker 0121361 7 F17.210 reports she's in the LDCT program already Hypertensive disorder 38 047033 I10 BP at goal, continue current regimen Vaginal irritation 69091 6004 N89.8 unclear etiology but discussed suspect yeastdecli didier vaginal swab today, does not have active d/cwill try topical clotrimazo le externally to startcall if worsening/ not resolving Urinary tr act infectious disease 04000519 N39.0 finish abx as prescribed , f/u if not resolved after course [id number] Chhaya Sosa NP FP, [facility], OFFICE [address] [place] [address] 07/11/2023 11:37:45 07/12/2023 09:04:54 Tobacco user 274553737 Z72.0 We discussed your smoking today for more than 3 minutes. Cigarette use is the leading cause of preventabl e disease, disability , and in the [place]. We talked about tools and medication s available to help you in smoking cessation. We discussed utilizing our smoking cessation employment coach and online resources. Active or passive immunization 547005431 Z23 shingles- reminded Recurrent urinary tract infection 269317597 N39.0 After a discussion of treatment and [...] ongoing smoking cessation Major depr essive disorder 175408891 F32.0 -STABLE on meds [id number] Jude Snowden MD Endocrino logy, [facility] [address] [place] [address] 07/31/2023 12:55:36 07/31/2023 13:54:21 Osteoporosis 57297809 M81.0 Tobacco user 082346448 Z 72.0 Primary hyperparathyroidism 08583254 E21.0 -please stop olmesartan -hydrochlo rothiazide and repeat bp check with [facility] Ian in 2 to 4 weeks -after 1 week, reassess 24h urine calcium creatinine while taking in 1000mg calcium daily, 3 to 4 servings of dairy daily -hctz falsely lowers urine calcium Active or passive immunization 452911369 Z23 Cigarette smoker 2918707 7 F17.210 Tobacco de pendence syndrome 70094749 F17.290 -you smoke 1st thing in the morning-gr andson gets on nerves and is one reason you smoke-curr ent up 10cig/d-yo u tried vareniclin e 2 halves, then stopped due to grandson staying with you Essential hypertension 88649515 I10 -please stop olmesartan -hydrochlo rothiazide and repeat bp check with YAMILETH Sosa in 2 to 4 weeks [id number] Jude Snowden MD Endocrino logy, [facility] [address] [place] [address] 09/11/2023 12:17:04 09/11/2023 14:13:05 Osteoporosis 47316712 M81.0 Primary hyperparathyroidism 13589136 E21.0 -please stop olmesartan -hydrochlo rothiazide , make sure you are off this, your pharmacy states you picked this up today -add calcium 250mg by mouth twice daily, yogurt/priya carlos 2x/d -reassess 24h urine calcium creatinine while taking in 1000mg calcium daily, 2 servings of dairy daily -hctz falsely lowers urine calcium Benign ess ential hypertension 6804354 I10 Tobacco user 899443655 Z 72.0 Cigarette smoker 8843644 7 F17.210 Tobacco de pendence syndrome 51606159 F17.290 -you smoke 1st thing in the morning-cu rrent up 6cig/d-you tried vareniclin e, then stopped due to wanting to smoke more-lozen ges make you gag-you sometimes get a craving to have a cig-you have other things on your mind Essential hypertension 37028246 I10 -please stop olmesartan -hydrochlo rothiazide [id number] Chhaya Sosa, YAMILETH , [facility], OFFICE [address] [place] [address] 09/20/2023 09:38:38 09/23/2023 09:04:52 Active or passive immunization 325068009 Z23 shingles- reminded Tobacco user 938258046 Z 72.0 We discussed your smoking today for more than 3 minutes. Cigarette use is the leading cause of preventabl e disease, disability , and in the [place]. We talked about tools and medication s available to help you in smoking cessation. We discussed utilizing our smoking cessation employment coach and online resources. Your personal goal: Morbid obesity 444454599 E66.01 - -Work on healthy eating, weight loss, and exercise-C all if you want to see the [facility] Chronic ob structive pulmonary disease 17382121 J44.9 -stable on meds [id number] Jude Snowden MD Endocrino logy, [address] [address] 10/09/2023 13:53:57 10/09/2023 15:46:30 Osteoporosis 99080460 M81.0 Benign ess ential hypertension 2069687 I10 Primary hyperparathyroidism 18582644 E21.0 -please be off olmesartan -hydrochlo rothiazide , make sure you are off this, your pharmacy states you picked this up today - calcium 250mg by mouth twice daily, yogurt/priya carlos 2x/d -reassess 24h urine calcium creatinine while taking in 1000mg calcium daily, 2 servings of dairy daily -hctz falsely lowers urine calcium Tobacco user 725440574 Z 72.0 Cigarette smoker 6304606 7 F17.210 Tobacco de pendence syndrome 84782983 F17.290 -you smoke 1st thing in the morning-cu rrent up 5 to 6cig/d-you tried vareniclin e, then stopped due to wanting to smoke more-lozen ges make you gag-you sometimes get a craving to have a cig-you have other things on your mind Essential hypertension 16782812 I10 -please stop olmesartan -hydrochlo rothiazide prior to urine calcium testing, may restart after [id number] Jude Snowden MD Endocrino logy, [address] [address] 11/13/2023 11:11:43 11/13/2023 12:54:44 Primary hyperparathyroidism 28766198 E21.0 -I suggest blood CASR (calcium sensing receptor) genetic testing, you decline -please consider a second opinion or genetic consult after reviewing with your primary provider -return as needed -stay on olmesartan -hydrochlo rothiazide -stop calcium supplement s -hctz falsely lowers urine calcium, but you did not take this during urine testing Osteoporosis 15906302 M8 1.0 Benign ess ential hypertension 3196998 I10 Tobacco user 969970263 Z 72.0 Cigarette smoker 0696650 7 F17.210 Tobacco de pendence syndrome 35413554 F17.290 -you smoke 1st thing in the morning-cu rrent up 6cig/d-you tried vareniclin e, then stopped due to wanting to smoke more-lozen ges make you gag-you sometimes get a craving to have a cig-you have other things on your mind Essential hypertension [id number] I10 -continue olmesartan -hydrochlo rothiazide [id number] Chhaya Sosa NP , [facility], OFFICE [address] [place] [phone] 11/19/2023 09:17:21 11/19/2023 10:08:31 Nicotine dependence 59555992 F17.200 We discussed your smoking/va ping today for more than 3 minutes. Cigarette/ pod use is the leading cause of preventabl e disease, disability , and in the [place]. We talked about tools and medication s available to help you in smoking/va ping cessation. We discussed utilizing our smoking cessation employment coach and online resources. Active or passive immunization [id number] Z23 shingles- reminded Hyperlipidemia 91388011 E78.5 -check labs Prediabetes 201927991 R7 3.03 -stable Morbid obesity 181413497 E66.01 - -Work on healthy eating, weight loss, and exercise-C all if you want to see the [facility] Major depr essive disorder 095258428 F32.0 -STABLE on meds-follo w up in 4 months Chronic ob structive pulmonary disease 21424658 J44.9 -stable on meds-encou raged daily walking [id number] YAMILETH Negro, [facility], OFFICE [address] [place] [phone] 04/23/2024 11:07:23 04/23/2024 12:36:32 Active or passive immunization [id number] Z23 shingles- reminded Nicotine dependence 5629 4008 [...] cessation. We discussed utilizing our smoking cessation employment coach and online resources. Your personal goal: Currently does not want to start smoking cessation. Increased frequency of urination 221669359 R35.0 Urinary frequency at night. unable to ambulate to bathroom at night. Will order urine culture to assess for infection. Urinary incontinence 165 919207 R32 Informed on kegel exercises, option of physical therapy.Di scussed use of urinary pads/under wear. Dilatation of aorta 2666 0001 I77.811 Benign ess ential hypertension 2721030 I10 After a discussion of treatment and [...] for wellness Chronic ob structive pulmonary disease 75355453 J44.9 -stable on meds-encou raged daily walking Abdominal aortic aneurysm 154413345 I71.40 -to get ultrasound Primary hyperparathyroidism 88366365 E21.0 -follow up w Dr Snowden as discussed todat Major depr essive disorder 487492707 F32.0 -STABLE on meds-follo w up in 2 months [id number] ADARSH FOY, KIMBERLYN , [facility], OFFICE [address] [place] [phone] 05/15/2024 13:44:45 05/15/2024 15:28:47 Pyelonephritis 11456072 N12 Pt w L-sided flank pain, fatigue, [...] to r/u other causes. Fracture of fibula 13661 007 S82.401A in wheelchair unable to get on and off toilet here [phone] Chhaya Sosa NP , [facility], OFFICE [address] [place] [address] 06/15/2024 11:30:11 06/15/2024 12:15:35 Nicotine dependence 31361325 F17.200 We discussed your smoking/va ping today [...] cessation. We discussed utilizing our smoking cessation employment coach and online resources. Active or passive immunization 216423068 Z23 shingles- reminded Aneurysm o f infrarenal abdominal aorta 900968571 I71.43 After a discussion of treatment and medication options, which included considerat ion of the best practices in medicine, a medical plan was provided. The patient's opinions and concerns were included in this treatment plan and goal. -Number to VASCULAR given and patient instructed to schedule the appointmen t. Referral completed. -If this specialty office requires [facility] to schedule the appointmen t the patient will call our office back and we will have the referrals department schedule it. -Will call with any new concerns or worsening symptoms. Smoker 70798726 F17.200 We talked about tools and medication s available to help you in smoking/va ping cessation. We discussed utilizing our smoking cessation employment coach and online resources. Entropion 32779980 H02.0 09 -to see eye surgeon next week Benign ess ential hypertension 8904094 I10 After a discussion of treatment and [...] Recorded Advance Directives Directive Y: Daughter Magno Perera [phone] Payers Encounter Date Sequence Insurance Name Policy Number Policy Porras Covered Member ID Porras Member ID Guarantor Name 11/13/2023 2 [place] Anabela J Gillette [id number] [facility] 11/13/2023 1 [place] [employer] Anabela J Gillette [id number] [facility] 11/19/2023 2 [place] Anabela J Gillette [id number] [facility] 11/19/2023 1 [place] [employer] Anabela J Gillette [id number] [facility] 04/23/2024 2 [place] Anabela J Gillette [id number] [facility] 04/23/2024 1 [place] [employer] Anabela J Gillette [id number] [facility] 05/15/2024 2 [place] Anabela J Gillette [id number] [facility] 05/15/2024 1 [place] [employer] Anabela J Gillette [id number] [facility] 06/15/2024 2 [place] Anabela J Gillette [id number] [facility] 06/15/2024 1 [place] Anabela J Gillette [id number] [facility] Notes Date Note Type Note Provider Name and Address Organization Details Recorded Time 4 text/html Follow-Up: primary hyperparathyroidismFollo w-Up: osteoporosisFollow-Up: benign essential hypertensionFollow-Up: tobacco userissues;discuss labs from 10/22/23 no falls fractures or kidney stones Jude Snowden MD [address] [place] [address], [phone], [facility] 11/13/2023 12:22:59 4 text/html 09/20/23 got wheel chair fixed, didnt get her new one soc hx - Miri beth- helps w rides (pt here ) Arthritisstableknee px - Saw Dr. Castellonweightbearing X-rays of the left knee from 2019 -severe tricompartmental OA with loose bodies in posterior knee joint. Smoking-has - Chantix- had started and made her nauseaus, smoking lessTim has called herEmphysema- on ldctSmoking like smoking, wants to try varenicline againDue -LDCT 11/02 Depression- doing ok on meds COPD- doing ok w inhalers Chhaya Sosa NP [address] [place] [address], [phone], [facility] 11/19/2023 10:20:12 4 text/html 04/23/2024I am a student, Coreen TAMEZ, working with Sana Sosa NP. Patient states doing well. David gr son (tomass son) helping her. Lives with grandson at home. Feel safe at home. Denies any falls.Has lav crewman to help w cleaning once a week, [...] ok w inhalers Chhaya Sosa NP [address] [place], [phone], [facility] 04/23/2024 13:42:17 4 text/html here w/ daughter [...] have an aneurysmsmoke ADARSH FOY, KIMBERLYN [address] [place], [phone], [facility] 05/15/2024 15:55:11 4 text/html 06/15/24 Pre op Patient has no concerns. Pre op for entropian surgery requested by Dr Brandon Londono.[facility] EYE Surgery next week- 06/23/24 HCP - magno, in chartMolst in chart, wants resuscitation. No issues w anesthesia in past SmokingDeclines medsstill smoking regularlyldct in 11/03 ordered. Chhaya Sosa NP [address] [place], [phone], [facility] 06/15/2024 12:35:01 OBGyn Episode No OBEpisode recorded.
--- OUTSIDE RECORDS SUMMARY | 2024-12-14 06:27 | XMS_ITS | Clinical Summary ---
Author Organization [facility] [address] [facility] [address] Address [address] [place] [address] Phone Care Team Providers Care Clinical Data Associate Name Role Phone Saqib Lock MD Primary Care Provi amelia Encounters Date Type Department Care Team Description 11/16/2024 Telephone Lung Screening Program - [address] [phone] Jeanie Anders [place] 11/02/2024 Telephone Lung Screening Program - [address] [phone] Love Ty [place] Appointment (Upcoming LDCT) from Last 3 Months Medical History Medical History Date Comments Current every day smoker DX:Curr ent every day smoker Essential (primary) hypertension DX:Essential (primary) hypertension COPD (chronic obstructive pu lmonary disease) ([facility]) DX:COPD (chronic obstructive pulmonary disease) ([facility]) Depression DX:Depression Thyroid disease DX:Thyroid disea [...] Upcoming Encounters Date Type Department Care Team ([facility] st Contact Info) Description 01/28/2025 9:30 AM EDT Appointment [facility] CT Scan [address] [place] [address] Health Maintenance Due Date Last [...] age to complete this topic Care Teams Clinical Data Associate Relationship Specialty Start Date End Date Saqib Lock MD [address] [place] [address] [facility] - General 10/30/22
--- OUTSIDE RECORDS SUMMARY | 2024-12-14 06:27 | XMS_ITS | Encounter Summary ---
Author Organization [facility] Address [address] [place] [phone] Care Team Providers Care Facing Baster Jumpbasting Name Role Phone Saqib Lock MD Primary Care Provi amelia Encounter Details Date Type Department Care Team (Late st Contact Info) Description 11/16/2024 Telephone Lung Screening Program - [address] [phone] Jeanie Anders MA Social History Tobacco Use [...] EDT Appointment [facility] CT Scan [address] [place] [phone] documented as of this encounter Visit Diagnoses Not on filedocumented in this encounter Care Teams Facing Baster Jumpbasting Relationship Specialty Start Date End Date Saqib Lock MD [address] [place], [place] PCP - General 10/30/22 documented as of this encounter
--- OUTSIDE RECORDS SUMMARY | 2024-12-14 06:27 | XMS_ITS | Data Portability ---
Author Organization [facility], Main Office Address [address] [facility] [place] [address] Care Team Providers Care Anesthesiologists' Assistant Name Role Phone NIKITA LIN Primary Care Provide r СВЕТЛАНА ROBERSON 2ND FLOOR OTHER Assessment Encounter Date Assessment Date Assessment LastModified by Organization Details LastModified Time 10/26/2024 10/26/2024 Labs 09/14: [id number] 4.6-Bun 16- cr 0.7-wbc 7.1-hgb 9.4-hct 28.7-plt 222 Labs 09/28: Na 144- K 3.0-Bun 12- Cr 0.6-wbc 9.6-hgb 10.40 hct 31.0-plt 198 Labs 10/05:Na 141- K 3.7-Bun 13- Cr 0.6-wbc 5.5-hgb 10.7-hct 32.2-plt 163 Labs 10/13: Na 141-K 3.8-Bun 14-Cr 0.6-wbc 8.2-hgb 11.8-plo36-np t 188-calcium 12.7 Labs 10/19: Na 141- K 3.2-Bun 18-cr 0.6-wbc 3.2-hgb 11.5-hct 34.7-200 Labs 10/26: Na 143-K 3.8-Bun 21- Cr 0.8-wbc 6.6-hgb 11.7-hct 35-plt 18- Not available 10/26/2024 14:34:38 11/02/2024 11/02/2024 Labs 09/14: [id number] 4.6-Bun 16- cr 0.7-wbc 7.1-hgb 9.4-hct 28.7-plt 222 Labs 09/28: Na 144- K 3.0-Bun 12- Cr 0.6-wbc 9.6-hgb 10.40 hct 31.0-plt 198 Labs 10/05:Na 141- K 3.7-Bun 13- Cr 0.6-wbc 5.5-hgb 10.7-hct 32.2-plt 163 Labs 10/13: Na 141-K 3.8-Bun 14-Cr 0.6-wbc 8.2-hgb 11.8-yuj60-zc t 188-calcium 12.7 Labs 10/19: Na 141- K 3.2-Bun 18-cr 0.6-wbc 3.2-hgb 11.5-hct 34.7-200 Labs 10/26: Na 143-K 3.8-Bun 21- Cr 0.8-wbc 6.6-hgb 11.7-hct 35-plt 18- Not available 11/02/2024 12:34:17 11/05/2024 11/05/2024 Labs 09/14: [id number] 4.6-Bun 16- cr 0.7-wbc 7.1-hgb 9.4-hct 28.7-plt 222 Labs 09/28: Na 144- K 3.0-Bun 12- Cr 0.6-wbc 9.6-hgb 10.40 hct 31.0-plt 198 Labs 10/05:Na 141- K 3.7-Bun 13- Cr 0.6-wbc 5.5-hgb 10.7-hct 32.2-plt 163 Labs 10/13: Na 141-K 3.8-Bun 14-Cr 0.6-wbc 8.2-hgb 11.8-zko63-kd t 188-calcium 12.7 Labs 10/19: Na 141- K 3.2-Bun 18-cr 0.6-wbc 3.2-hgb 11.5-hct 34.7-200 Labs 10/26: Na 143-K 3.8-Bun 21- Cr 0.8-wbc 6.6-hgb 11.7-hct 35-plt 18- Not available 11/05/2024 14:20:13 11/09/2024 11/09/2024 Labs 09/14: [id number] 4.6-Bun 16- cr 0.7-wbc 7.1-hgb 9.4-hct 28.7-plt 222 Labs 09/28: Na 144- K 3.0-Bun 12- Cr 0.6-wbc 9.6-hgb 10.40 hct 31.0-plt 198 Labs 10/05:Na 141- K 3.7-Bun 13- Cr 0.6-wbc 5.5-hgb 10.7-hct 32.2-plt 163 Labs 10/13: Na 141-K 3.8-Bun 14-Cr 0.6-wbc 8.2-hgb 11.8-bkj15-zb t 188-calcium 12.7 Labs 10/19: Na 141- [...] Address Organization Details Recorded Time Pulmonary emphysema 19891606 Active [address], [address], [address], Event [employer] 3 10:46:22 Osteoarth ritis 895914679 Active 2022 [employer] [address] [place] [address], [address], [place], [address], [facility] 3 10:46:28 Asthma 828802317 Active [address], [address], [place], [address], [facility] 3 10:46:32 Cyst of breast 010652628 Completed 202209/07/2024 KIMBERLYN MERCEDES [address] [facility], [address], [place], [address], [facility] 4 20:44:27 Chronic obstructi ve pulmonary disease 45622019 Active [address] [place] [address], [address], [place], [address], [place] [facility] 3 10:46:48 Obesity 812259927 Completed 202209/07/2024 KIMBERLYN MERCEDES [address] [facility], [address], [place], [address], [facility] 4 20:44:27 Depressiv e disorder 65942049 Active [address], [address], [place], [address], [place] [facility] 3 10:47:08 Hyperlipi demia 23010387 Active [address], [address], [place], [address], [facility] 3 10:47:16 Polyp of colon 02743359 Completed 202209/07/2024 KIMBERLYN MERCEDES [address] [facility], [address], [place], [address], [facility] 4 20:44:27 History of deep vein thrombosi s 825788024 Active [address], [address], [place], [address], [facility] 3 10:47:37 Essential hypertens ion 80944931 Active [address], [address], [place], [address], [facility] 3 10:51:08 Closed fracture of left patella 564891123764 75714 Completed 202209/07/2024 KIMBERLYN MERCEDES [address] [facility], [address], [place], [address], [facility] 4 20:44:27 Gastroeso phageal reflux disease without esophagit is 262260460 Active 2022 VANG[address] LORENZANA [address], [address], [place], [address], [facility] 3 10:57:14 Fall Active 2022 VANG[address] LORENZANA [address], [address], [place], [address], [facility] 3 11:02:17 Fracture of proximal end of femur 734629202 Completed 202309/07/2024 KIMBERLYN MERCEDES [address], [place], [address], [facility] 4 10:10:21 Tobacco user 170024005 Active 2023 VANGIE LORENZANA [address] , [address], [place], [address], [facility] 4 15:12:34 Hypercalc emia 20377172 Completed 202309/07/2024 KIMBERLYN MERCEDES [address] , [address], [place], [address], [facility] 4 20:44:27 History of thrombocy topenia 024048076837 08 Completed 202309/07/2024 KIMBERLYN MERCEDES [address] , [address], [place], [address], [facility] 4 20:48:33 Constipat ion 47087078 Active 2023 Holly Robles MD [address] [facility], [address], [place], [address], [facility] 4 21:45:11 Fracture of proximal end of femur 038528437 Active 2023 KIMBERLYN MERCEDES [address], [address], [place], [address], [facility] 4 10:10:21 Problem Notes None recorded. Procedures Surgical History Date Name Laterality Status Provider Name and Address Organization Details Recorded Time ligation of fallopian tube completed [address], [address], [place], [address], [facility] 01/28/2023 10:47:49 cholecystectomy completed [address], [address], [place], [address], [facility] 01/28/2023 10:47:57 Imaging Results None recorded. [...] Updated DateTime 11/05/2024 172.72 cm KIMBERLYN MERCEDES [address] [place] [address], [address], [place], [address], [facility] 11/05/2024 14:20:16 Date Recorded Body height Body temperature Respiratory rate Heart rate Oxygen saturation Oxygen saturation in Arterial blood by Pulse oximetry Systolic blood pressure Diastolic blood pressure Provider Name and Address Organization Details Last Updated DateTime 4 172.72 cm 98 [degF] 18 /min 71 /min 96 % 96 % 122 mm[Hg] 72 mm[Hg] KIMBERLYN MERCEDES [address] [facility], [address], [place], [address], [facility] 5 10:39:20 Social History Question Answer Notes LastModified by Organization Details LastModified Time Tobacco Smoking Status Former Smoker every day, 1 ppd [address]ANGIE [address], [address], [place], [address], [facility] 01/28/2023 10:48:58 Do You Have An [...] Do You Have A Medical Power Of Emergency Technician? Yes Information not available 07/20/2024 What Was [...] Time SARS-COV-2 (COVID-19) vaccine, UNSPECIFIED [address] [facility] 01/28/2023 16:51:35 SARS-COV-2 (COVID-19) vaccine, UNSPECIFIED 1 completed Minnie Zaheer [facility] 01/28/2023 16:51:48 Tdap 5 completed Minnie Schwab [facility] 01/28/2023 16:52:09 influenza, unspecified formulation 1 completed Minnie Schwab [facility] 01/28/2023 16:52:33 pneumococcal conjugate PCV 7 6 completed Minnie Schwab [facility] 01/28/2023 16:53:01 pneumococcal polysaccharide PPV23 2 completed Minnie Schwab [facility] 01/28/2023 16:53:16 zoster recombinant 9 completed Minnie Schwab [facility] 01/28/2023 16:53:33 zoster live 2 completed Minnie Schwab [facility] 01/28/2023 16:53:50 Influenza, adjuvanted, quadrivalent, PF 2 completed Mily Gage [facility] 12/11/2023 11:33:48 Influenza, adjuvanted, quadrivalent, PF 3 completed Milynilda Garcíain [facility] 01/09/2024 11:17:44 Past Encounters Encounter ID Performer Location Encounter Start Date Encounter Closed Date Diagnosis/Indication Diagnosis SNOMED-CT Code Diagnosis ICD10 Code Diagnosis Note [id number] VANGIE [facility] [address] [place] [address] 01/28/2023 10:42:58 01/30/2023 14:52:45 Closed fracture of left patella 7975944800 8414169 S82.002D see HPI, s/p fallKnee immobilize r while OOBWBAT, PT/OT eval and treatmonit or pain control Hyperlipidemia 41142278 E78.5 lipitor 20 mg dailymonit or lipids outpt with PCP Essential hypertension 46528188 I10 cardizem 120 mg dailybenic ar 40-25 dailymonit or bps 136/78 today Gastroesop hageal reflux disease without esophagitis 688043784 K21.9 pepcid 20 mg BIDmonitor for reflux Chronic ob structive pulmonary disease 12443660 J44.9 combivent QIDmonitor resp statusenco urage smoking cessation Pulmonary emphysema 8743 3001 J43.9 see aboveencou rage cessation Depressive disorder 4236 8082 F32.A zoloft 100 mg dailymonit or mood, consult [facility] if needed Fall R29.6 fell after getting OOBminimiz e fall riskPT/OT eval and treat Silverio Broussard MD [facility] on [address] [place] [address] 01/29/2023 13:50:17 01/31/2023 09:49:56 Fracture of fibula 40959393 S82.402D follow ortho recs; working w pt/ot;has knee immobilize r per ortho;cons ider aspirin anticoagul ation if patient is immobilize d; Essential hypertension 45407328 I10 asymptomat ic; hemodynami alysia stable; good rate; clear lungs; good sats; follow; History of deep vein thrombosis 064041552 Z86.718 noted;afte r knee surgery 2000;she seems to be adequately mobilized at this pointconsi amelia aspirin; Asthma 686893824 J45.90 9 asymptomat ic; on combivent; Hypercholesterolemia 136 81235 E78.00 on statin; Depressive disorder 0749 1858 F32.A well compensate d; on sertraline Medication monitoring 39 3361635 Z51.81 [facility] / Olmesartan -Hydrochlo rothiazide 40/25 mg/d; cardizem CD 120 mg/d;pulm / combivent; endo / lipitor 20 mg/d;heme /gi / pepcid;gu /neuro / sertraline 100 mg/d; [id number] VANGIE [facility] on [address] [place] [address] 02/04/2023 09:11:52 02/06/2023 09:35:44 Closed fracture of left patella 2231396794 9026934 S82.002D see HPI, s/p fallKnee immobilize r while OOBWBAT, PT/OT to continue outpt with [facility] Hyperlipidemia 16226756 E78.5 lipitor 20 mg dailymonit or lipids outpt with PCP Essential hypertension 17830223 I10 cardizem 120 mg dailybenic ar 40-25 dailystabl e Gastroesop hageal reflux disease without esophagitis 651200744 K21.9 pepcid 20 mg BID Chronic ob structive pulmonary disease 56579501 J44.9 combivent QIDencoura ge smoking cessation Pulmonary emphysema 8743 3001 J43.9 see aboveencou rage cessation Depressive disorder 3548 9007 F32.A zoloft 100 mg daily Fall R29.6 minimize fall risk at homeremove scatter risk [id number] VANGIE ANGEL [address] [place] [address] 07/18/2024 09:09:20 07/21/2024 09:00:14 Hyperlipidemia 96517196 E78.5 lipitor 20 mg dailymonit or lipids outpt with PCP Essential hypertension 34430938 I10 cardizem 300 mg dailyavali de dailymonit or bps 136/78 today Gastroesop hageal reflux disease without esophagitis 925209489 K21.9 pepcid 20 mg BIDmonitor for reflux Chronic ob structive pulmonary disease 30796973 J44.9 combivent QID prnmonitor resp statusenco urage smoking cessation Pulmonary emphysema 8743 3001 J43.9 see aboveencou rage cessation Depressive disorder 6238 2167 F32.A zoloft 100 mg dailyvitam in d3 dailymonit or mood, consult [facility] if needed Fall R29.6 see HPIminimiz e fall riskPT/OT eval and treat Tobacco user 217849705 Z 72.0 hx of heavy tobacco use and recently stopped secondary to stay at short-term rehab. She has not requested any nicotine replacemen t therapy while here but that can be offered if need be. Hypercalcemia 00125115 E 83.52 elevated serum calcium levels dating back to spring 2022.Mildl y elevated inpatient and do not appear to be causing her any symptomsHe r PTH was elevated suggesting primary hyperparat hyroidism. Patient should see endocrinol lise through [facility] after discharge from custodial facility.d tr aware to work on this Fracture o f proximal end of femur 337851705 S72.001A s/p pinningWBA T, PT/OT eval and treatmonit or pain controloxy codone 5 mg q 4 hours prnapap 650 mg q 6 hours prnlovenox 40 mg sq x 30 days [id number] MD GAMAL Mac [address] [place] [address] 07/20/2024 19:49:57 07/27/2024 09:02:40 Fracture of proximal end of femur 486508830 S72.021D Recovering as expected.C ontinue oxycodone 5 mg q 4 hrs prn and APAP 650 mg q 6 hrs prnContinu e lovenox 40 mg sq x 30 days for DVT prophylaxi s.Needs PT/OT for strengthen ing, balance, gait training, safety and function.C ontinue fall precaution s.Monitor for safety.F/U with ortho on 07/30 as planned. Essential hypertension 90666947 I10 In good control on diltiazem 300 mg qd and irbesartan /HCTZ 150/12.5 mgMonitor BP and labs. Hyperlipidemia 40173295 E78.49 Continue atorvastat in 20 mg qdMonitor labs as outpt. Gastroesop hageal reflux disease without esophagitis 647158802 K21.9 No current sxs.Contin ue famotidine 20 mg BIDMonitor for GI sxs. Chronic ob structive pulmonary disease 90806013 J43.8 No current sxs.Contin ue combivent 1 puff q 4 hrs prnMonitor resp statusCont inue to encourage smoking cessation Depressive disorder 3548 9007 F33.8 Continue sertraline 100 mg qdMood good today.[place] mood.Consu lt psych prn Fall R29.6 PT/OT as above.Cont inue fall precaution s.Monitor for safety. 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 Has not smoked since in hospital/r ehab. Hypercalcemia 89186060 E 83.52 Probable primary hyperparat hyroidism. To f/u with endo outpt.[place] tor Ca+ levels. History of thrombocytopenia 3514351012 9108 Z86.2 Dropped post-op inpt, now back to nl.Monitor labs. Constipation 00838136 K5 9.03 Will give MOM tonight and start miralax 17 gms qd.Continu e prn medsMonito r bowel function. [id number] VANGIE YEUNG JEANNE [address] [place] [address] 07/23/2024 11:08:18 07/24/2024 12:29:48 Fracture of proximal end of femur 710187713 S72.001A s/p pinning- site healing wellWBAT, PT/OT eval and treatoxyco done 5 mg q 4 hours prn - still taking frequently apap 650 mg q 6 hours prnlovenox 40 mg sq x 30 days total fall R29.6 continue PT dailyrepor ts pain with movement but tolerable with oxy Tear of skin 158375539 T 14.8XXD add xeroform to wound bed of skin tear on left arm and cover with foamchange dressing dailyonce healed [place] [id number] VANGIE [place] [address] 07/27/2024 09:01:00 07/29/2024 08:25:43 Fracture of proximal end of femur 640551738 S72.001A s/p pinning- site healing wellWBAT, PT/OT [...] working with physical therapy Tear of skin 014002008 T 14.8XXD add xeroform to wound bed of skin tear on left arm and cover with foamContin ue to change dressing dailyonce healed [place] [id number] [place] [address] 07/29/2024 11:12:02 07/30/2024 11:51:48 COVID-19 681379384 U07.1 tested posstable on RA, no ssbaseline cough and wheezing w/ h/o COPDpaxlov id not indicated at this timemainta in precaution sretest per protocolmo nitor VS and resp. status [id number] VANGIE ANGEL [address] [place] [address] 08/03/2024 09:12:48 08/04/2024 12:59:14 COVID-19 725976231 U07.1 Recoveredm onitor VS and resp. status Fracture o f proximal end of femur 754759920 S72.001A s/p pinning- site healing wellContin ue [...] drainage, color, and odor. Tear of skin 678800767 T 14.8XXD add xeroform to wound bed of skin tear on left arm and cover with foamContin ue to change dressing daily [id number] VANGIE ANGEL [address] [place] [address] 08/06/2024 10:51:39 08/07/2024 13:04:19 COVID-19 845468649 U07.1 Recovered Fracture o f proximal end of femur 674965287 S72.001A s/p pinning- site healing wellContin ue [...] drainage, color, and odor. Tear of skin 419864099 T 14.8XXD healing Fall R29.6 continue PT daily Essential hypertension 53992666 I10 cardizem 300 mg dailyavali de dailymonit or bps Hyperlipidemia 14962245 E78.5 lipitor 20 mg dailymonit or lipids outpt with PCP Gastroesop hageal reflux disease without esophagitis 108105255 K21.9 pepcid 20 mg BIDmonitor for reflux none noted Chronic ob structive pulmonary disease 67112182 J44.9 combivent QID prnmonitor resp statusenco urage smoking cessation Pulmonary emphysema 8743 3001 J43.9 see aboveencou rage cessation Depressive disorder 3548 9007 F32.A zoloft 100 mg dailyvitam in d3 dailymonit or mood, consult [facility] if needed [id number] [place] [address] 08/11/2024 09:55:34 08/12/2024 11:44:33 Fracture of proximal end of femur 880513090 S72.001A s/p pinning, site healedorde r placed to remove tata todayConti nue WBAT, PT/OTConti nue oxycodone 5 mg q 4 hours prn- using randomlyCo ntinue apap 650 mg q 6 hours prnlovenox 40 mg sq x 30 days total to end 08/18 Edema of l ower extremity 933728987 R60.0 consider lasix dailyadd cbc bmp bnp tomorrowel evate 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 Patient should see endocrinol lise through [facility] after discharge from custodial facility.1 1.8 corrected [id number] [place] [address] 08/19/2024 10:32:29 08/20/2024 13:56:24 Dizziness 870999107 R42 add cbc and bmp tomorrowen courage PO fluidscons ider IVF if neededmoni tor bps [id number] VANGIE ANGEL [address] [place] [address] 08/28/2024 09:55:39 08/31/2024 14:13:31 Dizziness 498938341 R42 resolved Edema of l ower extremity 094839373 R60.0 BNP in range for patientace wraps daily, off qhs Hypercalcemia 90198284 E 83.52 elevated serum calcium levels dating back to spring 2022.Mildl y elevated inpatient and do not appear to be causing her any symptomsHe r PTH was elevated suggesting primary hyperparat hyroidism. Patient should see endocrinol ogy through [facility] after discharge from custodial facility.1 1.8 corrected Fracture o f proximal end of femur 581713511 S72.001A s/p pinning, site healedDC oxycodone 5 mg q 4 hours prn-not usingConti nue apap 650 mg q 6 hours prn COVID-19 377530465 U07.1 Recovered Essential hypertension 13068861 I10 cardizem 300 mg dailyavali de daily Hyperlipidemia 61896926 E78.5 lipitor 20 mg dailymonit or lipids outpt with PCP Gastroesop hageal reflux disease without esophagitis 112053585 K21.9 pepcid 20 mg BID Chronic ob structive pulmonary disease 84217703 J44.9 combivent QID prnencoura ge smoking cessation Pulmonary emphysema 8743 3001 J43.9 see aboveencou rage cessation Depressive disorder 3988 9007 F32.A zoloft 100 mg dailyvitam in d3 daily [id number] [facility]LYN [facility]ES [facility] [address] [place] [address] [place] [address] 09/07/2024 07:41:45 09/08/2024 13:21:36 Closed fracture of hip 467613916 S72.001A s/p ORIFcontin ue lovenox 40 mg daily/dvt ppx for until 10/06conti nue tylenol and oxycodone prnPT/OT eval and TXfollow up with ortho in 2 weeksStapl es covered with dressing intact - not removed Essential hypertension 56526237 I10 meds held in acute care due to soft BPparamete rs to hold for SBP < 120continu e cardizem 300 mg Depressive disorder 3548 9007 F32.A Zoloft 100 mg daily Hypercalcemia 23465019 E 83.52 elevated serum calcium levels dating back to spring 2022.Mildl y elevated inpatient and do not appear to be causing her any symptomsHe r PTH was elevated suggesting primary hyperparat hyroidism. Patient should see endocrinol lise through [facility] after discharge from custodial facility.1 1.8 corrected Anemia fol lowing acute postoperative blood loss 1350076102 8122592 D62 surgery relatedhgb fell from 11.1 to 8.7did not require transfusio nmonitor hgb Hyperlipidemia 30874260 E78.5 lipitor 20 mg dailymonit or lipids outpt with PCP Gastroesop hageal reflux disease without esophagitis 000542428 K21.9 pepcid 20 mg BID Chronic ob structive pulmonary disease 63134107 J44.9 combivent QID prnencoura ge smoking cessation Asthma 082043507 J45.90 9 asymptomat ic; on combivent; History of deep vein thrombosis 431036119 Z86.718 after knee surgery 2000prior to fall not on anticoag due to active mobilityno w on lovenoxcon hog tender adding asa when lovenox is d/c Fall R29.6 PT/OTmaint ain safety Osteoarthritis 275828232 M19.90 continue tylenol prn [id number] Timur Beebe MD [address] [address] 09/08/2024 13:34:28 09/09/2024 12:17:01 Closed fracture of hip 804988791 S72.001A see HPIright hip fx s/p ORIFfollow ortho recs and update with concernsmo nitor for pain controlPT OT eval and treatloven ox for EVT prophylaxi s Essential hypertension 15411838 I10 cardizem 300 mg qdmonitor bp and need to titrate Depressive disorder 3548 9007 F33.8 zoloft 100 mg qdcontinue dmonitor mood Anemia fol lowing acute postoperative blood loss 1165469756 0415494 D62 no transfusio n in hospitalre peat cbc orderediro n studies prn Hyperlipidemia 43059721 E78.2 lipitor 20 mg qdcontinue d Gastroesop hageal reflux disease without esophagitis 901909915 K21.9 famotidine 20 mg bidmonitor for sx relief Chronic ob structive pulmonary disease 32772250 J41.1 continue out patient medication smonitor albuterol utilizatio nencourage 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 Fall R29.6 PT OT eval and treatmonit or fall risk and need for increased support in community Osteoarthritis 573168203 M15.0 controlled with prn tylenoladd ed to PMH Hypokalemia 76541920 E87 .6 now on KCl 40 meqs qdrepeat bmpmonitor lytes [id number] KIMBERLYN MERCEDES [address] [place] [address] 09/17/2024 09:31:46 09/21/2024 12:45:13 Closed fracture of hip 479947165 S72.001A s/p ORIFcontin ue PT/OTconti nue lovenox 40 mg daily/dvt ppx for until 10/06conti nue tylenol and oxycodone prnfollow up with ortho in 2 weeks 09/21/24St aples covered with dressing intact - not removed Essential hypertension 97164671 I10 BP stablecont inue cardizem 300 mg Depressive disorder 3548 9007 F32.A Zoloft 100 mg dailymood is good Hyperlipidemia 99692659 E78.5 lipitor 20 mg dailymonit or lipids outpt with PCP Gastroesop hageal reflux disease without esophagitis 510986742 K21.9 pepcid 20 mg BID Chronic ob structive pulmonary disease 69789232 J44.9 NO Increase WOBcombive nt QID prnencoura ge smoking cessation Fall R29.6 PT/OTmaint ain safety Fracture o f proximal end of femur 211375189 S72.001A s/p left proximal femur IM nail fixation 4cont inue PT/OT [id number] KIMBERLYN MERCEDES [address] [place] [address] 09/21/2024 08:39:37 09/22/2024 11:47:04 Closed fracture of hip 648964387 S72.001A s/p ORIFcontin ue PT/OTconti nue lovenox 40 mg daily/dvt ppx for until 10/06conti nue tylenol and oxycodone prnfollow up with ortho in 2 weeks 09/21/24St aples covered with dressing intact - not removed Essential hypertension 98368223 I10 BP stablecont in cardizem 300 mg Chronic ob structive pulmonary disease 96738229 J44.9 NO Increase WOBcombive nt QID prnencoura ge smoking cessation [id number] KIMBERLYN MERCEDES [address] [place] [address] 10/01/2024 09:07:27 10/02/2024 10:23:31 Closed fracture of hip [id number] S72.001A s/p ORIFcontin ue PT/OTconti nue lovenox 40 mg daily/dvt ppx for until 10/06con nue tylenol and oxycodone prnfollow up with ortho in 2 weeks 09/21/24St aples covered with dressing intact - not removed Essential hypertension 63545248 I10 BP stablecont in cardizem 300 mg Chronic ob structive pulmonary disease 98592122 J44.9 NO Increase WOBcombive nt QID prnencoura ge smoking cessation Acute hypokalemia 812949 03 E87.6 3.0not on diuretics , steroidsst art kcl 10 meq and recheck on 10/04 [id number] KIMBERLYN MERCEDES [address] [place] [address] 10/05/2024 11:16:11 10/06/2024 11:11:03 Closed fracture of hip 333265874 S72.001A s/p ORIFcontin ue PT/OTconti nue lovenox 40 mg daily/dvt ppx for until 10/06conti nue tylenol and oxycodone prnfollow up with ortho in 2 weeks 09/21/24in cision healed Essential hypertension 30286289 I10 BP stablecont inue cardizem 300 mg Chronic ob structive pulmonary disease 78046104 J44.9 NO Increase WOBcombive nt QID prnencoura ge smoking cessation Acute hypokalemia 342361 03 E87.6 repleted po with kcl 10 meq improvemen t now noted 3.7? is decrease possible related to recent abx use she was on ciprofloxa jaden for UTIwill monitor K Pain of ri ght knee region 2560175826 12784 M25.561 reports pain started after hip repairdesc ribed as cramping, pain with dorsiflexi onshe is concerned for ? blood clotthere is no swelling or point tenderness will ord ultrasound will order tramadol 50 mg Q6 prn until pending results. [id number] KIMBERLYN MERCEDES [address] [place] [phone] 10/12/2024 12:11:08 10/15/2024 11:19:28 Closed fracture of hip 328872620 S72.001A s/p ORIFcontin ue PT/OTconti nue lovenox 40 mg daily/dvt ppx for until 10/06conti nue tylenol and oxycodone prnfollow up with ortho in 2 weeks 09/21/24in cision healed Essential hypertension 11700593 I10 BP stablecont inue cardizem 300 mg Chronic ob structive pulmonary disease 68027995 J44.9 NO Increase WOBcombive nt QID prnencoura ge smoking cessation Pain of ri ght knee region 4723951691 07638 M25.561 see hpiimaging negative for DVTreports pain started after hip repairdesc ribed as cramping, pain with dorsiflexi onshe is concerned for ? blood clotthere is no swelling or point tenderness Hypercalcemia 02873028 E 83.52 today 12.7elevat ed serum calcium levels dating back to spring 2022.Mildl y elevated inpatient and do not appear to be causing her any symptomsHe r PTH was elevated suggesting primary hyperparat hyroidism. refer to endocrinol ogprakash through [facility] after discharge from custodial facilitydi scussed with nursing to hold calcium and vit D for now [id number] KIMBERLYN MERCEDES [address] [place] [address] 10/15/2024 08:36:48 10/16/2024 12:00:47 Closed fracture of hip 438873049 S72.001A s/p ORIFcontin ue PT/OTconti nue lovenox 40 mg daily/dvt ppx for until 10/06conti nue tylenol and oxycodone prnincisio n healed Essential hypertension 81633055 I10 BP stablecont inue cardizem 300 mg Chronic ob structive pulmonary disease 50817100 J44.9 NO Increase WOBcombive nt QID prnencoura ge smoking cessation Pain of ri ght knee region 4741947819 19426 M25.561 see hpiimaging negative for DVTreports pain started after hip repairdesc ribed as cramping, pain with dorsiflexi onshe is concerned for ? blood clotthere is no swelling or point tenderness Hypercalcemia 41494446 E 83.52 12: 12.7elevat ed serum calcium levels dating back to spring 2022.Mildl y elevated do not appear to be causing her any symptomsHe r PTH was elevated suggesting primary hyperparat hyroidism. [facility] after discharge from custodial facilitydi scussed with nursing to hold calcium and vit D for nowmonitor for associated sx [id number] KIMBERLYN MERCEDES [address] [facility] [place] [address] 10/19/2024 10:14:51 10/20/2024 14:17:10 Closed fracture of hip 988845628 S72.001A s/p ORIFcontin ue PT/OTconti nue tylenol and oxycodone prnincisio n healed Essential hypertension 37804333 I10 BP stablecont inue cardizem 300 mg Chronic ob structive pulmonary disease 19226595 J44.9 NO Increase WOBcombive nt QID prnencoura ge smoking cessation Pain of ri ght knee region 0602978219 01065 M25.561 see hpiimaging negative for DVTreports pain started after hip repairdesc ribed as cramping, pain with dorsiflexi onshe is concerned for ? blood clotthere is no swelling or point tenderness Hypercalcemia 72967638 E 83.52 [email or web address]/ 9: 11.6elevat ed serum calcium levels dating back to spring 2022.Mildl y elevated do not appear to be causing her any symptomsHe r PTH was elevated suggesting primary hyperparat hyroidism. refer to endocrinol og through [facility] after discharge from custodial facilitydi scussed with nursing to hold calcium and vit D for nowmonitor for associated sx Hypokalemia 39870727 E87 .6 see HPI/suspec t medication inducedK+ 3.2replace now with 20 meq for 1 dosewill add daily kcl 10 meq and continue to monitor. [id number] KIMBERLYN MERCEDES [address] [address] 10/22/2024 08:21:15 10/23/2024 13:25:04 Closed fracture of hip 437965387 S72.001A s/p ORIFcontin ue PT/OT- progressin g slowlycont inue tylenol and oxycodone prnincisio n healed Essential hypertension 54325234 I10 BP stablecont inue cardizem 300 mg Chronic ob structive pulmonary disease 56943792 J44.9 NO Increase WOBcombive nt QID prnencoura ge smoking cessation Pain of ri ght knee region 1038264433 71706 M25.561 imaging negative for DVTthere is no swelling or point tenderness will schedule apap 975 mg TID, pain seems to be interferin g with therapy endurance. discussed with patient and nursing. Hypercalcemia 37825499 E 83.52 [email or web address]/ 9: 11.6elevat ed serum calcium levels dating back to spring 2022.Mildl y elevated do not appear to be causing her any symptomsHe r PTH was elevated suggesting primary hyperparat hyroidism. refer to endocrinol og through [facility] after discharge from custodial facilitydi scussed with nursing to hold calcium and vit D for nowmonitor for associated sx Hypokalemia 59029011 E87 .6 see HPI/suspec t medication inducedK+ 3.2replace now with 20 meq for 1 dosewill add daily kcl 10 meq and continue to monitor. [id number] KIMBERLYN MERCEDES [address] [address] 10/26/2024 10:36:56 10/27/2024 12:05:26 Closed fracture of hip 108343247 S72.001A s/p ORIFcontin ue PT/OT- progressin g slowlycont inue tylenol and oxycodone prnincisio n healed Chronic ob structive pulmonary disease 54626631 J44.9 NO Increase WOBcombive nt QID prnencoura ge smoking cessation Pain of ri ght knee region 5266429966 16775 M25.561 imaging negative for DVTthere is no swelling or point tenderness continue apap 975 mg TID Hypokalemia 83728977 E87 .6 see HPI/suspec t medication inducedK+ 3.8continu e kcl 10 meq daily.[facility] tor labs [id number] KIMBERLYN MERCEDES [address] [address] 11/02/2024 10:15:17 11/03/2024 09:53:07 Closed fracture of hip 524173608 S72.001A s/p ORIFcontin ue PT/OT- progressin g slowlycont inue tylenol and oxycodone prnincisio n healed Chronic ob structive pulmonary disease 59653223 J44.9 NO Increase WOBcombive nt QID prnencoura ge smoking cessation Dysuria 96582972 R30.0 patient room has strong urine odorUA / C&S pendingnur sing reports hygiene issues noted during straight cathincrea sed fluids encouraged . [id number] KIMBERLYN MERCEDES [address] [address] 11/05/2024 13:49:31 11/06/2024 12:22:28 Dysuria 61209240 R30.0 patient room has strong urine odornursin g reports hygiene issues noted during straight cathincrea sed fluids encouraged . Recurrent urinary tract infection 074458403 N39.0 see hpiC&S results shows sensitivit y to ceftriaxon ewill stop macrobid and start on ceftriaxon e 1 g qd for 3 daysdiscus sed with nursing [id number] KIMBERLYN MERCEDES [address] [address] 11/09/2024 13:20:09 11/18/2024 11:14:37 Recurrent urinary tract infection 596918325 N39.0 abx completedm onitor for reoccurenc ewater/ increased fluids encouraged [id number] KIMBERLYN MERCEDES [address] [place] [address] 12/10/2024 15:22:50 12/10/2024 18:43:43 Left sided abdominal pain 915266469 R10.9 patient states that she has had this pain in the past and it has been intermitte nt and ongoing, she does not recall if she has seen GIdiscusse d with patient and nursingche ck labs cbc, CMP,straig ht cath for UA with c/sxray KUBconside r referral to GI if labs are non specific Dizziness 125285984 R42 BP 160's (could be related to [...] ID Guarantor Name 10/26/2024 2 [place] Anabela Gillette [id number] [facility] 10/26/2024 1 [place] [employer] Anabela J Gillette [id number] [facility] 11/02/2024 2 [place] Anabela Gillette [id number] [facility] 11/02/2024 1 [place] Anabela J Gillette [id number] [facility] 11/05/2024 2 [place] Anabela Gillette [id number] [facility] 11/05/2024 1 [place] [employer] Anabela J Gillette [id number] [facility] 11/09/2024 2 [place] Anabela Gillette [id number] [facility] 11/09/2024 1 [place] [employer] Anabela J Gillette [id number] [facility] 12/10/2024 2 [place] [facility] Anabela Gillette [id number] Anabela Gillette 12/10/2024 1 MEDICARE [place]: [facility] [place] [facility] Anabela Gillette [id number] Anabela Gillette Notes Date Note Type Note [...] stopped therapy early.. KIMBERLYN MERCEDES [address] [facility], [address], [place], [address], [facility] 10/26/2024 14:47:58 11/02/2024 text/html This is a 74 yr old femal patient seen for acute rounding visit. Per nursing, this past weekend she reported dysuria, a straight cath for urine UA was ordered and completed today. Patient tells me that she has been having sx for about 4 day(frequency and pressure) she has been afebrile KIMBERLYN MERCEDES [address] [facility], [address], [place], [address], [facility] 11/02/2024 12:41:41 11/05/2024 text/html This is a 74 yr old femal patient seen for acute rounding visit follow up for suspected UTI. Patient has been at her usually baseline in NAD, she has increased her fluid intake. She was started on macrobid on 11/03. C/S report showed UA is positive for proteus mirabilis with resistance to macrobid. KIMBERLYN MERCEDES [address] [facility], [address], [place], [address], [facility] 11/05/2024 15:15:00 11/09/2024 text/html This is a 74 yr old femal patient seen for acute rounding visit. Patient is doing well, she is at her baseline in NAD. There sre no acute nursing concerns. She Kaye completed abx therapy and is not experiencing any UTI sx at this time. KIMBERLYN MERCEDES [address] [facility], [address], [place], [address], [facility] 11/18/2024 10:47:49 12/10/2024 text/html Anabela is a [...] tenderness or distention. KIMBERLYN MERCEDES [address] [facility], [address], [place], [address], [facility] 12/10/2024 18:43:42 OBGyn Episode No OBEpisode recorded.
[2024-12-14 06:54] LABS: Anion Gap 9 (12-20); Blood Urea Nitrogen 21 mg/dL (9-16); Calcium 10.9 mg/dL (8.4-10.2); Carbon Dioxide 29 mmol/L (22-29); Chloride 107 mmol/L (96-108); Estimated Glomerular Filt Rate > 60; Glucose Random 80 mg/dL (60-115); Sodium 141 mmol/L (135-145)
== END 2024-12-14 06:19 | disposition home or self-care (01) ==
LOC: HO.MMNH2L 06:18
PROVIDERS: Visit Provider Student in an Organized Health Care Education/Training Program
DX: J44.9 Chronic obstructive pulmonary disease, unspecified (principal); F32.9 Major depressive disorder, single episode, unspecified; E46 Unspecified protein-calorie malnutrition
CPT/HCPCS: 36415; 80048; 85025

== ENCOUNTER 2024-12-21 05:56 | Outpatient (REF) | payer MEDICARE, MEDICAID, SELFPAY ==
[2024-12-21 05:40] LABS: MANUAL DIFF FLAG NO
--- OUTSIDE RECORDS SUMMARY | 2024-12-21 06:00 | XMS_ITS | Clinical Summary ---
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 Camera Operator Name Role Phone Saqib Lock MD Primary Care Provi amelia Encounters Date Type Department Care Team Description 11/16/2024 Telephone Lung Screening Program - [address] [phone] Jeanie Anders [place] 11/02/2024 Telephone Lung Screening Program - [address] [phone] Love Ty [place] Appointment (Upcoming LDCT) from Last 3 Months Medical History Medical History Date Comments Current every day smoker DX:Curr ent every day smoker Essential (primary) hypertension DX:Essential (primary) hypertension COPD (chronic obstructive pu lmonary disease) ([facility]) DX:COPD (chronic obstructive pulmonary disease) ([facility]) Depression DX:Depression Thyroid disease DX:Thyroid disea se Family History Relation Name Status Comments Brother Mother Sister Social History Tobacco Use Types Packs/Day Years Used Date Smoking Tobacco: Never Assessed Comments Unknown Sex and Gender Information Value Date Recorded Sex Assigned at Not on file Legal Sex Female 11:24 AM EST Gender Identity Not on file Sexual Orientation Not on file Obstetrics History Plan of Treatment Upcoming Encounters Date Type Department Care Team ([facility] st Contact Info) Description 01/28/2025 9:30 AM EDT Appointment [facility] CT Scan [address] [place] [phone] Health Maintenance Due Date Last Done Comments Breast Cancer Screening 1950 DTaP,Tdap,and Td Vaccines (1 - Tdap) 1969 Zoster Vaccines (1 of 2) 2000 Pneumococcal Vaccine: 50+ Ye ars (1 of 1 - PCV) [...] on patient's age to complete this topic Insurance [place] Care Teams Optical Effects Camera Operator Relationship Specialty Start Date End Date Saqib Lock MD [address] [place] [address] PCP - General 10/30/22
--- OUTSIDE RECORDS SUMMARY | 2024-12-21 06:00 | XMS_ITS | Data Portability ---
Author Organization [facility], Main Office Address [address] [place] [address] Care Team Providers Care Miner Name Role Phone NIKITA LIN Primary Care Provide r СВЕТЛАНА ROBERSON 2ND FLOOR OTHER Assessment Encounter Date Assessment Date Assessment LastModified by Organization Details LastModified Time 10/26/2024 10/26/2024 Labs 09/14: [id number] 4.6-Bun 16- cr 0.7-wbc 7.1-hgb 9.4-hct 28.7-plt 222 Labs 09/28: Na 144- K 3.0-Bun 12- Cr 0.6-wbc 9.6-hgb 10.40 hct 31.0-plt 198 Labs 10/05:Na 141- K 3.7-Bun 13- Cr 0.6-wbc 5.5-hgb 10.7-hct 32.2-plt 163 Labs 10/13: Na 141-K 3.8-Bun 14-Cr 0.6-wbc 8.2-hgb 11.8-znk35-qy t 188-calcium 12.7 Labs 10/19: Na 141- K 3.2-Bun 18-cr 0.6-wbc 3.2-hgb 11.5-hct 34.7-200 Labs 10/26: Na 143-K 3.8-Bun 21- Cr 0.8-wbc 6.6-hgb 11.7-hct 35-plt 18- Not available 10/26/2024 14:34:38 11/02/2024 11/02/2024 Labs 09/14: [id number] 4.6-Bun 16- cr 0.7-wbc 7.1-hgb 9.4-hct 28.7-plt 222 Labs 09/28: Na 144- K 3.0-Bun 12- Cr 0.6-wbc 9.6-hgb 10.40 hct 31.0-plt 198 Labs 10/05:Na 141- K 3.7-Bun 13- Cr 0.6-wbc 5.5-hgb 10.7-hct 32.2-plt 163 Labs 10/13: Na 141-K 3.8-Bun 14-Cr 0.6-wbc 8.2-hgb 11.8-ted15-jl t 188-calcium 12.7 Labs 10/19: Na 141- K 3.2-Bun 18-cr 0.6-wbc 3.2-hgb 11.5-hct 34.7-200 Labs 10/26: Na 143-K 3.8-Bun 21- Cr 0.8-wbc 6.6-hgb 11.7-hct 35-plt 18- Not available 11/02/2024 12:34:17 11/05/2024 11/05/2024 Labs 09/14: [id number] 4.6-Bun 16- cr 0.7-wbc 7.1-hgb 9.4-hct 28.7-plt 222 Labs 09/28: Na 144- K 3.0-Bun 12- Cr 0.6-wbc 9.6-hgb 10.40 hct 31.0-plt 198 Labs 10/05:Na 141- K 3.7-Bun 13- Cr 0.6-wbc 5.5-hgb 10.7-hct 32.2-plt 163 Labs 10/13: Na 141-K 3.8-Bun 14-Cr 0.6-wbc 8.2-hgb 11.8-mgs90-pe t 188-calcium 12.7 Labs 10/19: Na 141- K 3.2-Bun 18-cr 0.6-wbc 3.2-hgb 11.5-hct 34.7-200 Labs 10/26: Na 143-K 3.8-Bun 21- Cr 0.8-wbc 6.6-hgb 11.7-hct 35-plt 18- Not available 11/05/2024 14:20:13 11/09/2024 11/09/2024 Labs 09/14: [id number] 4.6-Bun 16- cr 0.7-wbc 7.1-hgb 9.4-hct 28.7-plt 222 Labs 09/28: Na 144- K 3.0-Bun 12- Cr 0.6-wbc 9.6-hgb 10.40 hct 31.0-plt 198 Labs 10/05:Na 141- K 3.7-Bun 13- Cr 0.6-wbc 5.5-hgb 10.7-hct 32.2-plt 163 Labs 10/13: Na 141-K 3.8-Bun 14-Cr 0.6-wbc 8.2-hgb 11.8-dzh23-ey t 188-calcium 12.7 Labs 10/19: Na 141- [...] Address Organization Details Recorded Time Pulmonary emphysema 55894408 Active [address], [address], [place], [address], [employer] 3 10:46:22 Osteoarth ritis 135643878 Active [address] [place] [address], [address], [place], [address], [employer] 3 10:46:28 Asthma 819105767 Active [address], [address], [place], [address], [employer] 3 10:46:32 Cyst of breast 410158126 Completed 202209/07/2024 KIMBERLYN MERCEDES [address] [facility], [address], [place], [address], [employer] 4 20:44:27 Chronic obstructi ve pulmonary disease 92378309 Active [address] [place] [address], [address], [place], [address], [place] [employer] 3 10:46:48 Obesity 690599469 Completed 202209/07/2024 KIMBERLYN MERCEDES [address] [facility], [address], [place], [address], [employer] 4 20:44:27 Depressiv e disorder 93435464 Active [address], [address], [place], [address], [place] [employer] 3 10:47:08 Hyperlipi demia 54140809 Active [address], [address], [place], [address], [employer] 3 10:47:16 Polyp of colon 34946212 Completed 202209/07/2024 KIMBERLYN MERCEDES [address] [facility], [address], [place], [address], [employer] 4 20:44:27 History of deep vein thrombosi s 140452195 Active [address], [address], [place], [address], [employer] 3 10:47:37 Essential hypertens ion 40954244 Active [address], [address], [place], [address], [employer] 3 10:51:08 Closed fracture of left patella 361153953389 58619 Completed 202209/07/2024 KIMBERLYN MERCEDES [address] [facility], [address], [place], [address], [employer] 4 20:44:27 Gastroeso phageal reflux disease without esophagit is 134088389 Active 2022 V[address]A LORENZANA [address], [address], [place], [address], [employer] 3 10:57:14 Fall Active 2022 VANGIEDIMA LORENZANA [address], [address], [place], [address], [employer] 3 11:02:17 Fracture of proximal end of femur 751916917 Completed 202309/07/2024 KIMBERLYN MERCEDES [address] , [address], [place], [address], [employer] 4 10:10:21 Tobacco user 166558421 Active 2023 VANGIE LORENZANA [address] , [address], [place], [address], [employer] 4 15:12:34 Hypercalc emia 81019551 Completed 202309/07/2024 KIMBERLYN MERCEDES [address] , [address], [place], [address], [employer] 4 20:44:27 History of thrombocy topenia 297643827586 08 Completed 202309/07/2024 KIMBERLYN MERCEDES [address] , [address], [place], [address], [employer] 4 20:48:33 Constipat ion 09319289 Active 2023 Holly Robles MD [address] [facility], [address], [place], [address], [employer] 4 21:45:11 Fracture of proximal end of femur 679307582 Active 2023 KIMBERLYN MERCEDES [address], [address], [place], [address], [employer] 4 10:10:21 Problem Notes None recorded. Procedures Surgical History Date Name Laterality Status Provider Name and Address Organization Details Recorded Time ligation of fallopian tube completed [address], [address], [place], [address], [employer] 01/28/2023 10:47:49 cholecystectomy completed [address], [address], [place], [address], [employer] 01/28/2023 10:47:57 Imaging Results None recorded. [...] Updated DateTime 11/05/2024 172.72 cm KIMBERLYN MERCEDES [address] [place] [address], [address], [place], [address], [employer] 11/05/2024 14:20:16 Date Recorded Body height Body temperature Respiratory rate Heart rate Oxygen saturation Oxygen saturation in Arterial blood by Pulse oximetry Systolic blood pressure Diastolic blood pressure Provider Name and Address Organization Details Last Updated DateTime 4 172.72 cm 98 [degF] 18 /min 71 /min 96 % 96 % 122 mm[Hg] 72 mm[Hg] KIMBERLYN MERCEDES [address] [facility], [address], [place], [address], [employer] 5 10:39:20 Social History Question Answer Notes LastModified by Organization Details LastModified Time Tobacco Smoking Status Former Smoker every day, [address], [address], [place], [address], [employer] 01/28/2023 10:48:58 Do You Have An [...] Do You Have A Medical Power Of Dress Fitter? Yes Information not available 07/20/2024 What Was [...] (COVID-19) vaccine, UNSPECIFIED 1 completed BALA Martinez [facility] 01/28/2023 16:51:35 SARS-COV-2 (COVID-19) vaccine, UNSPECIFIED [address] [facility] 01/28/2023 16:51:48 Tdap [address] [facility] 01/28/2023 16:52:09 influenza, unspecified formulation [address] [facility] 01/28/2023 16:52:33 pneumococcal conjugate PCV [address] [facility] 01/28/2023 16:53:01 pneumococcal polysaccharide PPV23 [address] [facility] 01/28/2023 16:53:16 zoster recombinant [address] [facility] 01/28/2023 16:53:33 zoster live [address] [facility] 01/28/2023 16:53:50 Influenza, adjuvanted, quadrivalent, PF [address] [facility] 12/11/2023 11:33:48 Influenza, adjuvanted, quadrivalent, PF [address]nilda Garcíain [facility] 01/09/2024 11:17:44 Past Encounters Encounter ID Performer Location Encounter Start Date Encounter Closed Date Diagnosis/Indication Diagnosis SNOMED-CT Code Diagnosis ICD10 Code Diagnosis Note [id number] VANGIE Kelloggshilpi [facility] [address] [place] [address] 01/28/2023 10:42:58 01/30/2023 14:52:45 Closed fracture of left patella 0223391319 2838222 S82.002D see HPI, s/p fallKnee immobilize r while OOBWBAT, PT/OT eval and treatmonit or pain control Hyperlipidemia 75755914 E78.5 lipitor 20 mg dailymonit or lipids outpt with PCP Essential hypertension 05950115 I10 cardizem 120 mg dailybenic ar 40-25 dailymonit or bps 136/78 today Gastroesop hageal reflux disease without esophagitis 224135750 K21.9 pepcid 20 mg BIDmonitor for reflux Chronic ob structive pulmonary disease 09027778 J44.9 combivent QIDmonitor resp statusenco urage smoking cessation Pulmonary emphysema 8743 3001 J43.9 see aboveencou rage cessation Depressive disorder 9397 5941 F32.A zoloft 100 mg dailymonit or mood, consult [facility] if needed Fall R29.6 fell after getting OOBminimiz e fall riskPT/OT eval and treat Silverio Broussard MD [facility] on [address] [place] [address] 01/29/2023 13:50:17 01/31/2023 09:49:56 Fracture of fibula 85262103 S82.402D follow ortho recs; working w pt/ot;has knee immobilize r per ortho;cons ider aspirin anticoagul ation if patient is immobilize d; Essential hypertension 63104484 I10 asymptomat ic; hemodynami alysia stable; good rate; clear lungs; good sats; follow; History of deep vein thrombosis 480601161 Z86.718 noted;afte r knee surgery 2000;she seems to be adequately mobilized at this pointconsi amelia aspirin; Asthma 979114136 J45.90 9 asymptomat ic; on combivent; Hypercholesterolemia 136 26978 E78.00 on statin; Depressive disorder 3853 9572 F32.A well compensate d; on sertraline Medication monitoring 39 7555876 Z51.81 [facility] / Olmesartan -Hydrochlo rothiazide 40/25 mg/d; cardizem CD 120 mg/d;pulm / combivent; endo / lipitor 20 mg/d;heme /gi / pepcid;gu /neuro / sertraline 100 mg/d; [id number] VANGIE [facility] on [address] [place] [address] 02/04/2023 09:11:52 02/06/2023 09:35:44 Closed fracture of left patella 7230736265 0940025 S82.002D see HPI, s/p fallKnee immobilize r while OOBWBAT, PT/OT to continue outpt with [facility] Hyperlipidemia 92890698 E78.5 lipitor 20 mg dailymonit or lipids outpt with PCP Essential hypertension 74287873 I10 cardizem 120 mg dailybenic ar 40-25 dailystabl e Gastroesop hageal reflux disease without esophagitis 401249167 K21.9 pepcid 20 mg BID Chronic ob structive pulmonary disease 84668393 J44.9 combivent QIDencoura ge smoking cessation Pulmonary emphysema 8743 3001 J43.9 see aboveencou rage cessation Depressive disorder 3548 9007 F32.A zoloft 100 mg daily Fall R29.6 minimize fall risk at homeremove scatter risk [id number] VANGIE ANGEL [address] [place] [address] 07/18/2024 09:09:20 07/21/2024 09:00:14 Hyperlipidemia 82456637 E78.5 lipitor 20 mg dailymonit or lipids outpt with PCP Essential hypertension 11446821 I10 cardizem 300 mg dailyavali de dailymonit or bps 136/78 today Gastroesop hageal reflux disease without esophagitis 421678096 K21.9 pepcid 20 mg BIDmonitor for reflux Chronic ob structive pulmonary disease 05866751 J44.9 combivent QID prnmonitor resp statusenco urage smoking cessation Pulmonary emphysema 8743 3001 J43.9 see aboveencou rage cessation Depressive disorder 9288 2617 F32.A zoloft 100 mg dailyvitam in d3 dailymonit or mood, consult [facility] if needed Fall R29.6 see HPIminimiz e fall riskPT/OT eval and treat Tobacco user 309325379 Z 72.0 hx of heavy tobacco use and recently stopped secondary to stay at short-term rehab. She has not requested any nicotine replacemen t therapy while here but that can be offered if need be. Hypercalcemia 91466819 E 83.52 elevated serum calcium levels dating back to spring 2022.Mildl y elevated inpatient and do not appear to be causing her any symptomsHe r PTH was elevated suggesting primary hyperparat hyroidism. Patient should see endocrinol lise through [facility] after discharge from long-term facility.d tr aware to work on this Fracture o f proximal end of femur 326894796 S72.001A s/p pinningWBA T, PT/OT eval and treatmonit or pain controloxy codone 5 mg q 4 hours prnapap 650 mg q 6 hours prnlovenox 40 mg sq x 30 days [id number] MD GAMAL Mac [address] [place] [address] 07/20/2024 19:49:57 07/27/2024 09:02:40 Fracture of proximal end of femur 975303419 S72.021D Recovering as expected.C ontinue oxycodone 5 mg q 4 hrs prn and APAP 650 mg q 6 hrs prnContinu e lovenox 40 mg sq x 30 days for DVT prophylaxi s.Needs PT/OT for strengthen ing, balance, gait training, safety and function.C ontinue fall precaution s.Monitor for safety.F/U with ortho on 07/30 as planned. Essential hypertension 90502591 I10 In good control on diltiazem 300 mg qd and irbesartan /HCTZ 150/12.5 mgMonitor BP and labs. Hyperlipidemia 50370142 E78.49 Continue atorvastat in 20 mg qdMonitor labs as outpt. Gastroesop hageal reflux disease without esophagitis 739200270 K21.9 No current sxs.Contin ue famotidine 20 mg BIDMonitor for GI sxs. Chronic ob structive pulmonary disease 58893001 J43.8 No current sxs.Contin ue combivent 1 puff q 4 hrs prnMonitor resp statusCont inue to encourage smoking cessation Depressive disorder 3548 9007 F33.8 Continue sertraline 100 mg qdMood good today.Bridgett tor mood.Consu lt psych prn Fall R29.6 PT/OT as above.Cont inue fall precaution s.Monitor for safety. 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 Has not smoked since in hospital/r ehab. Hypercalcemia 02559264 E 83.52 Probable primary hyperparat hyroidism. To f/u with endo outpt.Bridgett tor Ca+ levels. History of thrombocytopenia 0201642552 9108 Z86.2 Dropped post-op inpt, now back to nl.Monitor labs. Constipation 35790257 K5 9.03 Will give MOM tonight and start miralax 17 gms qd.Continu e prn medsMonito r bowel function. [id number] VAGNIE YEUNG JEANNE [address] [place] [address] 07/23/2024 11:08:18 07/24/2024 12:29:48 Fracture of proximal end of femur 950578133 S72.001A s/p pinning- site healing wellWBAT, PT/OT eval and treatoxyco done 5 mg q 4 hours prn - still taking frequently apap 650 mg q 6 hours prnlovenox 40 mg sq x 30 days total fall R29.6 continue PT dailyrepor ts pain with movement but tolerable with oxy Tear of skin 008711428 T 14.8XXD add xeroform to wound bed of skin tear on left arm and cover with foamchange dressing dailyonce healed [place] [id number] VANGIE [place] [address] 07/27/2024 09:01:00 07/29/2024 08:25:43 Fracture of proximal end of femur 081469688 S72.001A s/p pinning- site healing wellWBAT, PT/OT [...] working with physical therapy Tear of skin 564444326 T 14.8XXD add xeroform to wound bed of skin tear on left arm and cover with foamContin ue to change dressing dailyonce healed [place] [id number] [place] [address] 07/29/2024 11:12:02 07/30/2024 11:51:48 COVID-19 767150729 U07.1 tested posstable on RA, no ssbaseline cough and wheezing w/ h/o COPDpaxlov id not indicated at this timemainta in precaution sretest per protocolmo nitor VS and resp. status [id number] VANGIE ANGEL [address] [place] [address] 08/03/2024 09:12:48 08/04/2024 12:59:14 COVID-19 978045186 U07.1 Recoveredm onitor VS and resp. status Fracture o f proximal end of femur 061010833 S72.001A s/p pinning- site healing wellContin ue [...] drainage, color, and odor. Tear of skin 951088314 T 14.8XXD add xeroform to wound bed of skin tear on left arm and cover with foamContin ue to change dressing daily [id number] VANGIE ANGEL [address] [place] [address] 08/06/2024 10:51:39 08/07/2024 13:04:19 COVID-19 913041404 U07.1 Recovered Fracture o f proximal end of femur 988362222 S72.001A s/p pinning- site healing wellContin ue [...] drainage, color, and odor. Tear of skin 451882835 T 14.8XXD healing Fall R29.6 continue PT daily Essential hypertension 46018067 I10 cardizem 300 mg dailyavali de dailymonit or bps Hyperlipidemia 36684263 E78.5 lipitor 20 mg dailymonit or lipids outpt with PCP Gastroesop hageal reflux disease without esophagitis 603863559 K21.9 pepcid 20 mg BIDmonitor for reflux none noted Chronic ob structive pulmonary disease 83940740 J44.9 combivent QID prnmonitor resp statusenco urage smoking cessation Pulmonary emphysema 8743 3001 J43.9 see aboveencou rage cessation Depressive disorder 3548 9007 F32.A zoloft 100 mg dailyvitam in d3 dailymonit or mood, consult [facility] if needed [id number] [place] [address] 08/11/2024 09:55:34 08/12/2024 11:44:33 Fracture of proximal end of femur 142103492 S72.001A s/p pinning, site healedorde r placed to remove tata todayConti nue WBAT, PT/OTConti nue oxycodone 5 mg q 4 hours prn- using randomlyCo ntinue apap 650 mg q 6 hours prnlovenox 40 mg sq x 30 days total to end 08/18 Edema of l ower extremity 570222354 R60.0 consider lasix dailyadd cbc bmp bnp tomorrowel evate as ableask cant gang sawyer to weigh nowadd weights MWF [id number] [place] [address] 08/12/2024 09:49:29 08/13/2024 15:31:19 Edema of lower extremity 221972917 R60.0 asked for her to be weighed yesterday, nursing note says lizbeth, unable to obtain unclear whyBNP in range for patientadd rosa wraps daily, off qhsmonitor Hypercalcemia 88040440 E 83.52 elevated serum calcium levels dating back to spring 2022.Mildl y elevated inpatient and do not appear to be causing her any symptomsHe r PTH was elevated suggesting primary hyperparat hyroidism. Patient should see endocrinol lise through [facility] after discharge from long-term facility.1 1.8 corrected [id number] [place] [address] 08/19/2024 10:32:29 08/20/2024 13:56:24 Dizziness 776365541 R42 add cbc and bmp tomorrowen courage PO fluidscons ider IVF if neededmoni tor bps [id number] VANGIE ANGEL [address] [place] [address] 08/28/2024 09:55:39 08/31/2024 14:13:31 Dizziness 323326157 R42 resolved Edema of l ower extremity 766165052 R60.0 BNP in range for patientace wraps daily, off qhs Hypercalcemia 57229449 E 83.52 elevated serum calcium levels dating back to spring 2022.Mildl y elevated inpatient and do not appear to be causing her any symptomsHe r PTH was elevated suggesting primary hyperparat hyroidism. Patient should see endocrinol ogy through [facility] after discharge from long-term facility.1 1.8 corrected Fracture o f proximal end of femur 341923926 S72.001A s/p pinning, site healedDC oxycodone 5 mg q 4 hours prn-not usingConti nue apap 650 mg q 6 hours prn COVID-19 353294884 U07.1 Recovered Essential hypertension 24784437 I10 cardizem 300 mg dailyavali de daily Hyperlipidemia 48953437 E78.5 lipitor 20 mg dailymonit or lipids outpt with PCP Gastroesop hageal reflux disease without esophagitis 884003432 K21.9 pepcid 20 mg BID Chronic ob structive pulmonary disease 35839901 J44.9 combivent QID prnencoura ge smoking cessation Pulmonary emphysema 8743 3001 J43.9 see aboveencou rage cessation Depressive disorder 8118 9007 F32.A zoloft 100 mg dailyvitam in d3 daily [id number] [facility] [address] [place] [address] [place] [address] 09/07/2024 07:41:45 09/08/2024 13:21:36 Closed fracture of hip 729345905 S72.001A s/p ORIFcontin ue lovenox 40 mg daily/dvt ppx for until 10/06conti nue tylenol and oxycodone prnPT/OT eval and TXfollow up with ortho in 2 weeksStapl es covered with dressing intact - not removed Essential hypertension 77038839 I10 meds held in acute care due to soft BPparamete rs to hold for SBP < 120continu e cardizem 300 mg Depressive disorder 3548 9007 F32.A Zoloft 100 mg daily Hypercalcemia 84059290 E 83.52 elevated serum calcium levels dating back to spring 2022.Mildl y elevated inpatient and do not appear to be causing her any symptomsHe r PTH was elevated suggesting primary hyperparat hyroidism. Patient should see endocrinol lise through [facility] after discharge from long-term facility.1 1.8 corrected Anemia fol lowing acute postoperative blood loss 2679607269 0475322 D62 surgery relatedhgb fell from 11.1 to 8.7did not require transfusio nmonitor hgb Hyperlipidemia 16121559 E78.5 lipitor 20 mg dailymonit or lipids outpt with PCP Gastroesop hageal reflux disease without esophagitis 769144793 K21.9 pepcid 20 mg BID Chronic ob structive pulmonary disease 27946294 J44.9 combivent QID prnencoura ge smoking cessation Asthma 541000386 J45.90 9 asymptomat ic; on combivent; History of deep vein thrombosis 271682267 Z86.718 after knee surgery 2000prior to fall not on anticoag due to active mobilityno w on lovenoxcon manager 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 adding asa when lovenox is d/c Fall R29.6 PT/OTmaint ain safety Osteoarthritis 565155372 M19.90 continue tylenol prn [id number] Timur Beebe MD [address] [address] 09/08/2024 13:34:28 09/09/2024 12:17:01 Closed fracture of hip 068618739 S72.001A see HPIright hip fx s/p ORIFfollow ortho recs and update with concernsmo nitor for pain controlPT OT eval and treatloven ox for EVT prophylaxi s Essential hypertension 28561154 I10 cardizem 300 mg qdmonitor bp and need to titrate Depressive disorder 3548 9007 F33.8 zoloft 100 mg qdcontinue dmonitor mood Anemia fol lowing acute postoperative blood loss 9678492150 0597000 D62 no transfusio n in hospitalre peat cbc orderediro n studies prn Hyperlipidemia 27319642 E78.2 lipitor 20 mg qdcontinue d Gastroesop hageal reflux disease without esophagitis 983129925 K21.9 famotidine 20 mg bidmonitor for sx relief Chronic ob structive pulmonary disease 52099196 J41.1 continue out patient medication smonitor albuterol utilizatio nencourage 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 Fall R29.6 PT OT eval and treatmonit or fall risk and need for increased support in community Osteoarthritis 559097349 M15.0 controlled with prn tylenoladd ed to PMH Hypokalemia 18299943 E87 .6 now on KCl 40 meqs qdrepeat bmpmonitor lytes [id number] KIMBERLYN MERCEDES [address] [place] [address] 09/17/2024 09:31:46 09/21/2024 12:45:13 Closed fracture of hip 870123222 S72.001A s/p ORIFcontin ue PT/OTconti nue lovenox 40 mg daily/dvt ppx for until 10/06conti nue tylenol and oxycodone prnfollow up with ortho in 2 weeks 09/21/24St aples covered with dressing intact - not removed Essential hypertension 75576647 I10 BP stablecont inue cardizem 300 mg Depressive disorder 3548 9007 F32.A Zoloft 100 mg dailymood is good Hyperlipidemia 76644917 E78.5 lipitor 20 mg dailymonit or lipids outpt with PCP Gastroesop hageal reflux disease without esophagitis 327250294 K21.9 pepcid 20 mg BID Chronic ob structive pulmonary disease 50358206 J44.9 NO Increase WOBcombive nt QID prnencoura ge smoking cessation Fall R29.6 PT/OTmaint ain safety Fracture o f proximal end of femur 122955620 S72.001A s/p left proximal femur IM nail fixation 4cont inue PT/OT [id number] KIMBERLYN MERCEDES [address] [place] [address] 09/21/2024 08:39:37 09/22/2024 11:47:04 Closed fracture of hip 997894110 S72.001A s/p ORIFcontin ue PT/OTconti nue lovenox 40 mg daily/dvt ppx for until 10/06conti nue tylenol and oxycodone prnfollow up with ortho in 2 weeks 09/21/24St aples covered with dressing intact - not removed Essential hypertension 94685637 I10 BP stablecont in cardizem 300 mg Chronic ob structive pulmonary disease 92523654 J44.9 NO Increase WOBcombive nt QID prnencoura ge smoking cessation [id number] KIMBERLYN MERCEDES [address] [place] [address] 10/01/2024 09:07:27 10/02/2024 10:23:31 Closed fracture of hip 049343753 S72.001A s/p ORIFcontin ue PT/OTconti nue lovenox 40 mg daily/dvt ppx for until 10/06con nue tylenol and oxycodone prnfollow up with ortho in 2 weeks 09/21/24St aples covered with dressing intact - not removed Essential hypertension 83852180 I10 BP stablecont in cardizem 300 mg Chronic ob structive pulmonary disease 05873383 J44.9 NO Increase WOBcombive nt QID prnencoura ge smoking cessation Acute hypokalemia 271079 03 E87.6 3.0not on diuretics , steroidsst art kcl 10 meq and recheck on 10/04 [id number] KIMBERLYN MERCEDES [address] [place] [address] 10/05/2024 11:16:11 10/06/2024 11:11:03 Closed fracture of hip 018636803 S72.001A s/p ORIFcontin ue PT/OTconti nue lovenox 40 mg daily/dvt ppx for until 10/06conti nue tylenol and oxycodone prnfollow up with ortho in 2 weeks 09/21/24in cision healed Essential hypertension 25087490 I10 BP stablecont inue cardizem 300 mg Chronic ob structive pulmonary disease 90191202 J44.9 NO Increase WOBcombive nt QID prnencoura ge smoking cessation Acute hypokalemia 209487 03 E87.6 repleted po with kcl 10 meq improvemen t now noted 3.7? is decrease possible related to recent abx use she was on ciprofloxa jaden for UTIwill monitor K Pain of ri ght knee region 8364380414 90083 M25.561 reports pain started after hip repairdesc ribed as cramping, pain with dorsiflexi onshe is concerned for ? blood clotthere is no swelling or point tenderness will ord ultrasound will order tramadol 50 mg Q6 prn until pending results. [id number] KIMBERLYN MERCEDES [address] [place] [address] 10/12/2024 12:11:08 10/15/2024 11:19:28 Closed fracture of hip 166265889 S72.001A s/p ORIFcontin ue PT/OTconti nue lovenox 40 mg daily/dvt ppx for until 10/06conti nue tylenol and oxycodone prnfollow up with ortho in 2 weeks 09/21/24in cision healed Essential hypertension 91459155 I10 BP stablecont inue cardizem 300 mg Chronic ob structive pulmonary disease 29046742 J44.9 NO Increase WOBcombive nt QID prnencoura ge smoking cessation Pain of ri ght knee region 7756716377 49854 M25.561 see hpiimaging negative for DVTreports pain started after hip repairdesc ribed as cramping, pain with dorsiflexi onshe is concerned for ? blood clotthere is no swelling or point tenderness Hypercalcemia 69859300 E 83.52 today 12.7elevat ed serum calcium levels dating back to spring 2022.Mildl y elevated inpatient and do not appear to be causing her any symptomsHe r PTH was elevated suggesting primary hyperparat hyroidism. refer to endocrinol ogprakash through [facility] after discharge from long-term facilitydi scussed with nursing to hold calcium and vit D for now [id number] KIMBERLYN MERCEDES [address] [place] [phone] 10/15/2024 08:36:48 10/16/2024 12:00:47 Closed fracture of hip 605091721 S72.001A s/p ORIFcontin ue PT/OTconti nue lovenox 40 mg daily/dvt ppx for until 10/06conti nue tylenol and oxycodone prnincisio n healed Essential hypertension 28459636 I10 BP stablecont inue cardizem 300 mg Chronic ob structive pulmonary disease 26534561 J44.9 NO Increase WOBcombive nt QID prnencoura ge smoking cessation Pain of ri ght knee region 0723414827 26392 M25.561 see hpiimaging negative for DVTreports pain started after hip repairdesc ribed as cramping, pain with dorsiflexi onshe is concerned for ? blood clotthere is no swelling or point tenderness Hypercalcemia 07037310 E 83.52 12: 12.7elevat ed serum calcium levels dating back to spring 2022.Mildl y elevated do not appear to be causing her any symptomsHe r PTH was elevated suggesting primary hyperparat hyroidism. [place] [facility] after discharge from long-term facilitydi scussed with nursing to hold calcium and vit D for nowmonitor for associated sx [id number] KIMBERLYN MERCEDES [address] [facility] [place] [address] 10/19/2024 10:14:51 10/20/2024 14:17:10 Closed fracture of hip 409668848 S72.001A s/p ORIFcontin ue PT/OTconti nue tylenol and oxycodone prnincisio n healed Essential hypertension 41692467 I10 BP stablecont inue cardizem 300 mg Chronic ob structive pulmonary disease 15739063 J44.9 NO Increase WOBcombive nt QID prnencoura ge smoking cessation Pain of ri ght knee region 1532484443 96658 M25.561 see hpiimaging negative for DVTreports pain started after hip repairdesc ribed as cramping, pain with dorsiflexi onshe is concerned for ? blood clotthere is no swelling or point tenderness Hypercalcemia 50412917 E 83.52 [email or web address]/ 9: 11.6elevat ed serum calcium levels dating back to spring 2022.Mildl y elevated do not appear to be causing her any symptomsHe r PTH was elevated suggesting primary hyperparat hyroidism. refer to endocrinol og through [facility] after discharge from long-term facilitydi scussed with nursing to hold calcium and vit D for nowmonitor for associated sx Hypokalemia 21478452 E87 .6 see HPI/suspec t medication inducedK+ 3.2replace now with 20 meq for 1 dosewill add daily kcl 10 meq and continue to monitor. [id number] KIMBERLYN MERCEDES [address] [address] 10/22/2024 08:21:15 10/23/2024 13:25:04 Closed fracture of hip 809814568 S72.001A s/p ORIFcontin ue PT/OT- progressin g slowlycont inue tylenol and oxycodone prnincisio n healed Essential hypertension 30565705 I10 BP stablecont inue cardizem 300 mg Chronic ob structive pulmonary disease 95508619 J44.9 NO Increase WOBcombive nt QID prnencoura ge smoking cessation Pain of ri ght knee region 4062856016 28899 M25.561 imaging negative for DVTthere is no swelling or point tenderness will schedule apap 975 mg TID, pain seems to be interferin g with therapy endurance. discussed with patient and nursing. Hypercalcemia 83598610 E 83.52 [id number]/ 9: 11.6elevat ed serum calcium levels dating back to spring 2022.Mildl y elevated do not appear to be causing her any symptomsHe r PTH was elevated suggesting primary hyperparat hyroidism. refer to endocrinol og through [facility] after discharge from long-term facilitydi scussed with nursing to hold calcium and vit D for nowmonitor for associated sx Hypokalemia 75378652 E87 .6 see HPI/suspec t medication inducedK+ 3.2replace now with 20 meq for 1 dosewill add daily kcl 10 meq and continue to monitor. [id number] KIMBERLYN MERCEDES [address] [address] 10/26/2024 10:36:56 10/27/2024 12:05:26 Closed fracture of hip 224452181 S72.001A s/p ORIFcontin ue PT/OT- progressin g slowlycont inue tylenol and oxycodone prnincisio n healed Chronic ob structive pulmonary disease 70582694 J44.9 NO Increase WOBcombive nt QID prnencoura ge smoking cessation Pain of ri ght knee region 2706901999 36107 M25.561 imaging negative for DVTthere is no swelling or point tenderness continue apap 975 mg TID Hypokalemia 19721712 E87 .6 see HPI/suspec t medication inducedK+ 3.8continu e kcl 10 meq daily.[facility] labs [id number] KIMBERLYN MERCEDES [address] [address] 11/02/2024 10:15:17 11/03/2024 09:53:07 Closed fracture of hip 764294069 S72.001A s/p ORIFcontin ue PT/OT- progressin g slowlycont inue tylenol and oxycodone prnincisio n healed Chronic ob structive pulmonary disease 28162540 J44.9 NO Increase WOBcombive nt QID prnencoura ge smoking cessation Dysuria 15403191 R30.0 patient room has strong urine odorUA / C&S pendingnur sing reports hygiene issues noted during straight cathincrea sed fluids encouraged . [id number] KIMBERLYN MERCEDES [address] [address] 11/05/2024 13:49:31 11/06/2024 12:22:28 Dysuria 70895677 R30.0 patient room has strong urine odornursin g reports hygiene issues noted during straight cathincrea sed fluids encouraged . Recurrent urinary tract infection 040179884 N39.0 see hpiC&S results shows sensitivit y to ceftriaxon ewill stop macrobid and start on ceftriaxon e 1 g qd for 3 daysdiscus sed with nursing [id number] KIMBERLYN MERCEDES [address] [address] 11/09/2024 13:20:09 11/18/2024 11:14:37 Recurrent urinary tract infection 746078378 N39.0 abx completedm onitor for reoccurenc ewater/ increased fluids encouraged [id number] KIMBERLYN MERCEDES [address] [facility] [place] [address] 12/10/2024 15:22:50 12/14/2024 16:02:52 Left sided abdominal pain 872047990 R10.9 patient states that she has had this pain in the past and it has been intermitte nt and ongoing, she does not recall if she has seen GIdiscusse d with patient and nursingche ck labs cbc, CMP,straig ht cath for UA with c/sxray KUBconside r referral to GI if labs are non specific Dizziness 425849850 R42 BP 160's (could be related to [...] Name 10/26/2024 2 [place] Anabela Gillette [id number] [facility] 10/26/2024 1 [place] [employer] Anabela J Gillette [id number] [facility] 11/02/2024 2 [place] Anabela Gillette [id number] [facility] 11/02/2024 1 [place] [employer] Anabela J Gillette [id number] [facility] 11/05/2024 2 [place] Anabela Gillette [id number] [facility] 11/05/2024 1 [place] [employer] Anabela J Gillette [id number] [facility] 11/09/2024 2 [place] Anabela Gillette [id number] [facility] 11/09/2024 1 [place] [employer] Anabela J Gillette [id number] [facility] 12/10/2024 2 [facility] Anabela Gillette [id number] Anabela Gillette 12/10/2024 1 [place]ARE [place]: [facility] [employer] Anabela Gillette [id number] Anabela Gillette Notes Date Note Type Note [...] she stopped therapy early.. KIMBERLYN MERCEDES [address] [facility], [address], [place], [address], [employer] 10/26/2024 14:47:58 11/02/2024 text/html This is a 74 yr old femal patient seen for acute rounding visit. Per nursing, this past weekend she reported dysuria, a straight cath for urine UA was ordered and completed today. Patient tells me that she has been having sx for about 4 day(frequency and pressure) she has been afebrile KIMBERLYN MERCEDES [address] [facility], [address], [place], [address], [employer] 11/02/2024 12:41:41 11/05/2024 text/html This is a 74 yr old femal patient seen for acute rounding visit follow up for suspected UTI. Patient has been at her usually baseline in NAD, she has increased her fluid intake. She was started on macrobid on 11/03. C/S report showed UA is positive for proteus mirabilis with resistance to macrobid. KIMBERLYN MERCEDES [address] [facility], [address], [place], [address], [employer] 11/05/2024 15:15:00 11/09/2024 text/html This is a 74 yr old femal patient seen for acute rounding visit. Patient is doing well, she is at her baseline in NAD. There sre no acute nursing concerns. She Kaye completed abx therapy and is not experiencing any UTI sx at this time. KIMBERLYN MERCEDES [address] [facility], [address], [place], [address], [facility] 11/18/2024 10:47:49 12/10/2024 text/html Anabela is a [...] no tenderness or distention. KIMBERLYN MERCEDES [address] [facility], [address], [place], [address], [facility] Shozu [facility] 12/10/2024 18:43:42 OBGyn Episode No OBEpisode recorded.
--- OUTSIDE RECORDS SUMMARY | 2024-12-21 06:01 | XMS_ITS | Data Portability ---
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 I think CASR [...] None recorded. Lab culture, urine 2023 024 [facility], [address] [place] [address], [address], 4 14:23:35 urinalysi s, dipstick, auto 2023 024 [facility], [address] [place] [address], [address], 4 15:32:30 urinalysi s, dipstick, auto 2023 024 [facility], [address] [place] [address], [address], 4 16:36:40 Referral pelvic floor therapy referral - 73 yo f w incontine nce 2023 024 [email or web address] [facility], [address], [place], [address], 4 15:37:34 vascular surgeon referral 2023 024 [email or web address] Not available 4 08:33:52 Procedures None recorded. Surgeries None recorded. Imaging US, abdominal aorta - 73 yo f w htn, smoker, hx of aneurysm in the mid to distal portion of the aorta. 2023 024 [facility]), [address], [place], [address], 4 13:10:01 LDCT, chest, for lung cancer screening - last scan 11/07/23 (Nancy) wants [facility] as its closer, current smoker, 30+ pack year, 5'6 , 244lbsPle ase enroll this patient in the LDCT Lung Cancer Screening Program (for ordering, follow up and shared decision making) 2023 024 [email or web address] [facility], [address] [place], [address], 4 08:51:18 Medication Orders Nicotrol 10 mg inhalatio n cartridge 2023 024 [id number] 500 [facility] [facility] #[id number], [address], [place], [id number], 5 13:11:10 Cipro 500 mg tablet 2023 024 [facility][id number], [address], [place], [id number], 11:46:33 Patient TargetsNo targets recorded. Patient Instructions Encounter Date Encounter Id Patient Instructions Last Modified By Organization Details Last Modified Time 04/23/2024 [id number] Follow up on 07/28/2024 for follow up visit. If any new or worsening concerns, contact the office. [email or web address] Not available 04/23/2024 13:22:56 Patient is seen and examined with the above student. Assessment and Plan formulated with the above student collaboratively with the patient. KIMBERLYN Negro Not available 04/23/2024 13:40:27 06/15/2024 [id number] PRE OPERATIVE MEDICAL EVALUATION : 1. No [...] incontinence Referring Physician: Chhaya Sosa [facility], Encounter Date: 04/23/2024 Vascular Surgeon Referral fo r Aneurysm of infrarenal abdominal aorta Referring Physician: Chhaya Sosa [facility], Encounter Date: 06/15/2024 Results Created Date Observation Date Name Description Value Unit Range Abnormal Flag Note LastModifiedBy Organization Detail LastModifiedTime 10/22/2010/22/2023 PTH INTAC T PTH intact 178.6 pg/mL 9.6-66 .3 high Not Available [address], [address], 10/22/2023 14:24:37 10/22/20 23 10/22/2023 VITAM IN [...] er than 30 ng/mL . Not Available [address], [address], 10/22/2023 14:24:38 10/22/20 23 10/23/2023 RENAL PANEL glucose 109 mg/dL 70-100 high Not Available [address], [address], 10/23/2023 15:01:39 10/22/20 23 10/23/2023 RENAL PANEL BUN 12 mg/dL 7-18 Not Available [address], [address], 10/23/2023 15:01:39 10/22/20 23 10/23/2023 RENAL PANEL creatinine 0.9 mg/dL 0.8-1. 3 Not Available [address], [address], 10/23/2023 15:01:39 10/22/20 23 10/23/2023 RENAL PANEL B/C 13.3 ratio Not Available [address], [address], 10/23/2023 15:01:39 10/22/20 23 10/23/2023 RENAL PANEL [...] be used in pregn javier. Not Available [address], [address], 10/23/2023 15:01:39 10/22/20 23 10/23/2023 RENAL PANEL sodium 144 mmol/ L 136-14 5 Not Available [address], [address], 10/23/2023 15:01:39 10/22/20 23 10/23/2023 RENAL PANEL potassium 4.2 mmol/ L 3.5-5. 1 Not Available [address], [address], 10/23/2023 15:01:39 10/22/20 23 10/23/2023 RENAL PANEL chloride 104 mmol/ L 96-107 Not Available [address], [address], 10/23/2023 15:01:39 10/22/20 23 10/23/2023 RENAL PANEL anion gap 9.1 5.0-15 .0 Not Available [address], [address], 10/23/2023 15:01:39 10/22/20 23 10/23/2023 RENAL PANEL CO2 31 mmol/ L 21-32 Not Available [address], [address], 10/23/2023 15:01:39 10/22/20 23 10/23/2023 RENAL PANEL calcium 11.1 mg/dL 8.5-10 .3 high CWP=C onsis tent with previ ous. Not Available [address], [address], 10/23/2023 15:01:39 10/22/2010/23/2023 RENAL PANEL albumin 3.1 g/dL 3.4-5. 0 low Not Available [address], [address], 10/23/2023 15:01:39 10/22/20 23 10/23/2023 RENAL PANEL phosphorous 2.80 mg/dL 2.50-4 .90 Not Available [address], [address], 10/23/2023 15:01:39 10/22/20 23 10/24/2023 CALCI UM, 24 HOUR URINE (W/ CREAT ININE ) calcium/crea tinine ratio 146 mg/g_ creat 30-275 normal Not Available [facility] [address] [place] [address] [address], [place], [address], 10/24/2023 21:53:25 10/22/20 23 10/24/2023 CALCI UM, 24 HOUR URINE (W/ CREAT ININE ) calcium, 24 hour urine 107 mg/24 _h normal Refer ence Range 35-25 0 Low calci um diet 35-20 0 Not Available [facility] [address], [address], 10/24/2023 21:53:25 10/22/20 23 10/24/2023 CALCI UM, 24 HOUR URINE (W/ CREAT ININE ) creatinine, 24 hour urine 0.73 g/24_ h 0.50-2 .15 normal Not Available [facility] [address], [place], [address], 10/24/2023 21:53:25 11/19/19 24 11/19/2023 COMP. METAB OLIC PANEL glucose 99 mg/dL 70-100 Not Available [address], [address], 11/19/2023 13:51:51 11/19/19 24 11/19/2023 COMP. METAB OLIC PANEL BUN 17 mg/dL 7-18 Not Available [address], [address], 11/19/2023 13:51:51 11/19/19 24 11/19/2023 COMP. METAB OLIC PANEL creatinine 1.0 mg/dL 0.8-1. 3 Not Available [address], [address], 11/19/2023 13:51:51 11/19/19 24 11/19/2023 COMP. METAB OLIC PANEL B/C 17.0 ratio Not Available [address], [address], 11/19/2023 13:51:51 11/19/19 24 11/19/2023 COMP. METAB [...] be used in pregn javier. Not Available [address], [address], 11/19/2023 13:51:51 11/19/19 24 11/19/2023 COMP. METAB OLIC PANEL sodium 141 mmol/ L 136-14 5 Not Available [address], [address], 11/19/2023 13:51:51 11/19/19 24 11/19/2023 COMP. METAB OLIC PANEL potassium 3.9 mmol/ L 3.5-5. 1 Not Available [address], [address], 11/19/2023 13:51:51 11/19/19 24 11/19/2023 COMP. METAB OLIC PANEL chloride 101 mmol/ L 96-107 Not Available [address], [address], 11/19/2023 13:51:51 11/19/19 24 11/19/2023 COMP. METAB OLIC PANEL anion gap 7.3 5.0-15 .0 Not Available [address], [address], 11/19/2023 13:51:51 11/19/19 24 11/19/2023 COMP. METAB OLIC PANEL CO2 33 mmol/ L 21-32 high Not Available [address], [address], 11/19/2023 13:51:51 11/19/19 24 11/19/2023 COMP. METAB OLIC PANEL calcium 10.9 mg/dL 8.5-10 .3 high CWP=C onsis tent with previ ous. Not Available [address], [address], 11/19/2023 13:51:51 11/19/19 24 11/19/2023 COMP. METAB OLIC PANEL total protein 6.8 g/dL 6.4-8. 2 Not Available [address], [address], 11/19/2023 13:51:51 11/19/19 24 11/19/2023 COMP. METAB OLIC PANEL albumin 3.4 g/dL 3.4-5. 0 Not Available [address], [address], 11/19/2023 13:51:51 11/19/19 24 11/19/2023 COMP. METAB OLIC PANEL globulin 3.4 g/dL Not Available [address], [address], 11/19/2023 13:51:51 11/19/19 24 11/19/2023 COMP. METAB OLIC PANEL A/G 1.0 ratio 0.8-2. 0 Not Available [address], [address], 11/19/2023 13:51:51 11/19/19 24 11/19/2023 COMP. METAB OLIC PANEL total bilirubin 0.50 mg/dL 0.00-1 .00 Not Available [address], [address], 11/19/2023 13:51:51 11/19/19 24 11/19/2023 COMP. METAB OLIC PANEL AST 32 U/L 0-37 Not Available [address], [address], 11/19/2023 13:51:51 11/19/19 24 11/19/2023 COMP. METAB OLIC PANEL ALT 27 U/L 6-63 Not Available [address], [address], 11/19/2023 13:51:51 11/19/19 24 11/19/2023 COMP. METAB OLIC PANEL alk. phos. 70 U/L 50-136 Not Available [address], [address], 11/19/2023 13:51:51 11/19/19 24 11/19/2023 LIPID PANEL cholesterol 110 mg/dL <200 mg/dl Spike able 200-2 39 mg/dl Borde rline High >240 mg/dl High Not Available [address], [address], 11/19/2023 13:51:53 11/19/19 24 11/19/2023 LIPID PANEL triglyceride s 116 mg/dL <150 mg/dL Marlene l 150-1 99 mg/dL Borde rline High 200-4 99 mg/dL High >500 mg/dL Very High Not Available [address], [address], 11/19/2023 13:51:53 11/19/1911/19/2023 LIPID PANEL direct HDL 45 mg/dL <40 mg/dl - Major Risk for CHD >60 mg/dl - Negat abigail Risk for CHD Not Available [address], [address], 11/19/2023 13:51:53 11/19/1911/19/2023 DIREC T LDL direct [...] r is not marbin reddyy. Not Available [address], [address], 11/19/2023 13:51:54 04/23/20 24 04/23/2024 URINA LYSIS color DARK YELLOW yellow Not Available [address], [address], 04/23/2024 15:32:30 04/23/20 24 04/23/2024 URINA LYSIS clarity SLIGHT LY CLOUDY clear Not Available [address], [address], 04/23/2024 15:32:30 04/23/20 24 04/23/2024 URINA LYSIS glucose NEGATI VE negati ve Not Available [address], [address], 04/23/2024 15:32:30 04/23/20 24 04/23/2024 URINA LYSIS bilirubin 1+ negati ve abnormal Not Available [address], [address], 04/23/2024 15:32:30 04/23/20 24 04/23/2024 URINA LYSIS ketones TRACE negati ve abnormal Not Available [address], [address], 04/23/2024 15:32:30 04/23/20 24 04/23/2024 URINA LYSIS specific gravity 1.025 1.001- 1.035 Not Available [address], [address], 04/23/2024 15:32:30 04/23/20 24 04/23/2024 URINA LYSIS pH 5.5 5.0-8. 0 Not Available [address], [address], 04/23/2024 15:32:30 04/23/20 24 04/23/2024 URINA LYSIS protein 1+ negati ve abnormal Not Available [address], [address], 04/23/2024 15:32:30 04/23/20 24 04/23/2024 URINA LYSIS urobilinogen 0.2 E.U./D L <1.0 Not Available [address], [address], 04/23/2024 15:32:30 04/23/20 24 04/23/2024 URINA LYSIS nitrates POSITI VE negati ve abnormal Not Available [address], [address], 04/23/2024 15:32:30 04/23/20 24 04/23/2024 URINA LYSIS blood NEGATI VE negati ve Not Available [address], [address], 04/23/2024 15:32:30 04/23/20 24 04/23/2024 URINA LYSIS leukocytes 1+ negati ve abnormal Not Available [address], [address], 04/23/2024 15:32:30 04/23/20 24 04/23/2024 URINE , MICRO SCOPI C WBC 25-50 hpf 0-4/hp f Not Available [address], [address], 04/23/2024 16:05:00 04/23/20 24 04/23/2024 URINE , MICRO SCOPI C RBC 3-5 hpf 0-2/hp f Not Available [address], [address], 04/23/2024 16:05:00 04/23/20 24 04/23/2024 URINE , MICRO SCOPI C bacteria 2+ none seen Not Available [address], [address], 04/23/2024 16:05:00 04/23/20 24 04/23/2024 URINE , MICRO SCOPI C yeast NONE SEEN none seen Not Available [address], [address], 04/23/2024 16:05:00 04/23/20 24 04/23/2024 URINE , MICRO SCOPI C squamous epithelial cells 6 hpf 0-5 high Not Available [address], [address], 04/23/2024 16:05:00 04/23/20 24 04/23/2024 URINE , MICRO SCOPI C calcium oxalate crystals 3+ none seen Not Available [address], [address], 04/23/2024 16:05:00 04/23/20 24 04/23/2024 URINE , MICRO SCOPI C mucous NONE SEEN none seen Not Available [address], [address], 04/23/2024 16:05:00 04/23/20 24 04/27/2024 CULTU RE, URINE , ROUTI NE culture, urine, routine abnormal CULTU RE, URINE , ROUTI NE Micro Numbe r: [id number] Test Statu s: Final Speci men [...] lexin and lorac arbef . Not Available [facility] [address] [place] [address] B, [place], [address], 04/27/2024 14:23:35 05/15/20 24 05/15/2024 URINA LYSIS color YELLOW yellow Not Available [address], [address], 05/15/2024 16:36:40 05/15/20 24 05/15/2024 URINA LYSIS clarity CLEAR clear Not Available [address], [address], 05/15/2024 16:36:40 05/15/20 24 05/15/2024 URINA LYSIS glucose NEGATI VE negati ve Not Available [address], [address], 05/15/2024 16:36:40 05/15/20 24 05/15/2024 URINA LYSIS bilirubin 1+ negati ve abnormal Not Available [address], [address], 05/15/2024 16:36:40 05/15/20 24 05/15/2024 URINA LYSIS ketones TRACE negati ve abnormal Not Available [address], [address], 05/15/2024 16:36:40 05/15/20 24 05/15/2024 URINA LYSIS specific gravity 1.025 1.001- 1.035 Not Available [address], [address], 05/15/2024 16:36:40 05/15/20 24 05/15/2024 URINA LYSIS pH 6.0 5.0-8. 0 Not Available [address], [address], 05/15/2024 16:36:40 05/15/20 24 05/15/2024 URINA LYSIS protein 1+ negati ve abnormal Not Available [address], [address], 05/15/2024 16:36:40 05/15/20 24 05/15/2024 URINA LYSIS urobilinogen 1.0 E.U./D L <1.0 abnormal Not Available [address], [address], 05/15/2024 16:36:40 05/15/20 24 05/15/2024 URINA LYSIS nitrates NEGATI VE negati ve Not Available [address], [address], 05/15/2024 16:36:40 05/15/20 24 05/15/2024 URINA LYSIS blood NEGATI VE negati ve Not Available [address], [address], 05/15/2024 16:36:40 05/15/20 24 05/15/2024 URINA LYSIS leukocytes TRACE negati ve abnormal Not Available [address], [address], 05/15/2024 16:36:40 05/15/20 24 05/15/2024 URINE , MICRO SCOPI C WBC 2-4 hpf 0-4/hp f Not Available [address], [address], 05/15/2024 17:02:35 05/15/20 24 05/15/2024 URINE , MICRO SCOPI C RBC 0-2 hpf 0-2/hp f Not Available [address], [address], 05/15/2024 17:02:35 05/15/20 24 05/15/2024 URINE , MICRO SCOPI C hyaline casts 1 lpf 0-2 Not Available [address], [address], 05/15/2024 17:02:35 05/15/20 24 05/15/2024 URINE , MICRO SCOPI C bacteria TRACE none seen Not Available [address], [address], 05/15/2024 17:02:35 05/15/20 24 05/15/2024 URINE , MICRO SCOPI C yeast NONE SEEN none seen Not Available [address], [address], 05/15/2024 17:02:35 05/15/20 24 05/15/2024 URINE , MICRO SCOPI C squamous epithelial cells 3 hpf 0-5 Not Available [address], [address], 05/15/2024 17:02:35 05/15/20 24 05/15/2024 URINE , MICRO SCOPI C mucous NONE SEEN none seen Not Available [facility] [address], [place], [address], 05/15/2024 17:02:35 10/23/20 23 10/23/2023 US, retro [...] cysts. Readin suman Physic brendon: Dustin [facility] (Imaging) [address], [place], [address], 10/24/2023 07:40:14 11/19/19 24 11/07/2023 LDCT, chest , for lung cance r scree suzie No observ ation record ed. [facility] [address] [place] [address], [address], 11/19/2023 10:17:36 11/19/19 24 11/19/2023 CT, chest No observ ation record ed. [facility] [address] [place] [address], [address], 12/03/2023 14:26:26 11/19/19 24 11/19/2023 CT, chest No observ ation record ed. [facility] [address] [place], [address], 12/03/2023 14:26:27 04/30/20 24 04/30/2024 US, abdom [...] Readin g Physic brendon: Brad Bernal ms [facility] (Imaging) [address], [place], [address], 05/01/2024 09:17:50 Result Notes None recorded. Problems Name Problem SNOMED Code Status Onset Date Resolution Date Notes Provider Name and Address Organization Details Recorded Time Hyperten sive disorder 54485046 Completed 12/25/2016 Chhaya Sosa NP [address] [place] [address], [address] , [facility] 3 13:27:23 Tobacco user 150848343 Active Started smoking at 16 ; LDCT DUE Chhaya Sosa NP [address] [place] [address], [address] , [facility] 3 12:50:21 Chronic obstruct abigail pulmonar y disease 25675682 Active Chhaya Sosa NP [address] [place] [address], , [facility] 3 13:27:23 Costal chondrit is 97188489 Active Chhaya Sosa NP [address] [place] [address], , [facility] 3 13:27:23 Shoulder pain [id number] Cali Sosa NP [address] [place] [address], , [facility] 3 13:27:23 Morbid obesity 920218803 Active Chhaya Sosa NP [address] [place] [address], , [facility] 3 13:27:23 Major depressi ve disorder 168842458 Active F32.9 = no QUENTIN Score. Please code severity or remissio n level for a QUENTIN Score. Chhaya Sosa NP [address] [place] [address], , [facility] 3 13:27:23 Hyperlip idemia [id number] Cali Sosa NP [address] [place] [address], , [facility] 3 13:27:23 Anxiety [id number] Cali Sosa NP [address] [place] [address], , [facility] 3 13:27:23 Unexplai gerardo weight loss [id number] Cali Sosa NP [address] [place] [address], , [facility] 3 13:27:23 Benign essentia l hyperten janay [id number] Cali Sosa NP [address] [place] [address], , [facility] 3 13:27:23 Dyspnea [id number] Cali Sosa NP [address] [place] [address], , [facility] 3 13:27:23 Standard chest X-ray abnormal [id number] Cali Sosa NP [address] [place] [address], [address] , [facility] 3 13:27:23 Hypercal cemia 68012552 Completed 201612/25/2016 Eunice Short NP [address] [place] [address], [address] , [facility] 7 13:16:19 Primary hyperpar athyroid ism 94001593 Active 2016 Chhaya Sosa NP [address] [place] [address], [address] , [facility] 3 13:27:23 Abdomina l aortic aneurysm 209472658 Active 05/2023 no change On ultrasou nd. 3cm on abd CT 11/2016. 3.7x3.7 cm on US 04/10/22 essentia lly stable from 10/03/21 (3.6x3.6 cm) Chhaya Sosa NP [address] [place] [address], , [facility] 3 20:31:55 Osteopen ia 948910979 Completed 201612/16/2019 Eunice Short NP [address] [place] [address], , [facility] 0 20:33:00 Knee pain Active 2016 Chhaya Sosa NP [address] [place] [address], , [facility] 3 13:27:23 Osteopor osis 98968901 Active 2019 Chhaya Sosa NP [address] [place] [address], , [facility] 3 13:27:23 Osteoart hritis of knee 074623931 Active 2020 Eunice Short NP [address] [place] [address], [address] , [facility] 1 18:32:43 Hyperten sive disorder 53440262 Active 2021 Chhaya Sosa NP [address] [place], [address] , [facility] 3 13:27:23 Vitamin D deficien cy 97626921 Active 2021 Chhaya Sosa NP [address] [place], [address] , [facility] 3 13:27:23 Adenomat ous polyp of colon 307635992 Active 2022 2020, repeat in 3 yrs Chhaya Sosa NP [address] [place], [address] , [facility] 3 16:46:35 Fracture of fibula 93940392 Active 01/31 left Chhaya Sosa NP [address] [place] [address], [address] , [facility] 3 10:21:52 Admissio n to [facility] facility Active 08/0407/15/2024 an did Open reductio n internal fixation fx intertro shelleyi c. going to [facility]. 01/31 adm to [facility] for fx fibula Chhaya Sosa NP [address] [place] [address], [address] , [facility] 4 16:09:14 Fall Active 2023 [facility] D/C Demetrice Ringer null, [facility] 4 14:40:47 Intertro chanteri c fracture 783422555 Active 2023 [facility] D/C Demetrice Ringer null, [facility] 4 14:41:10 Fracture of femur 05698571 Active 2023 cdh d/c Demetrice Ringer null, [facility] 4 09:38:54 Problem Notes None recorded. Procedures Surgical History Date Name Laterality Status Provider Name and Address Organization Details Recorded Time 12/01/19 25 Smoking cessation counseling cancelled ROYA Vanessa [facility] 11/30/2024 14:27:11 12/01/19 25 Medicare Wellness Visit cancelled Sera Livingston Yoselin [facility] 11/30/2024 14:26:21 09/15/20 24 Post hospital/SNF follow-up/Trans itional Care cancelled Talwendiyung Dustin [facility] 09/15/2024 10:22:13 02/21/20 19 Smoking cessation counseling completed Staci Barahona [facility] 02/20/2019 10:19:13 11/13/19 19 Smoking cessation counseling completed Jessenia Reynoso RN, BSN [facility] 11/13/2018 11:08:20 11/13/19 19 Carbon Monoxide Testing completed Jessenia Reynoso RN, BSN [facility] 11/13/2018 11:08:20 05/06/20 18 Smoking cessation counseling completed Flora Samuel RN [facility] 05/06/2018 10:51:44 05/06/20 18 Medicare Wellness Visit completed Flora Samuel RN [facility] 05/06/2018 10:51:33 05/06/20 18 Carbon Monoxide Testing completed Flora Samuel RN [facility] 05/06/2018 10:51:44 05/06/20 18 Advanced Care Planning completed Eunice Short NP [address] [place] [address], [address] 05/07/2018 21:10:04 09/27/20 17 Smoking cessation counseling completed Amelie Flood LPN [facility] 09/27/2017 15:44:31 09/27/20 17 Carbon Monoxide Testing completed Amelie Flood LPN [facility] 09/27/2017 15:44:31 08/13/20 17 Smoking cessation counseling completed Sera Livingston [facility] 08/13/2017 11:45:27 08/13/20 17 POC Urinalysis Testing completed Sera Livingston [facility] 08/13/2017 11:39:25 05/16/20 17 Smoking cessation counseling completed Nelly Burnette CMA [facility] 05/16/2017 13:26:24 05/16/20 17 Suture/staple Removal completed Eunice Short NP [address] [place], [address], [facility] 05/16/2017 14:01:29 04/29/20 17 Smoking cessation counseling completed Donna Gray [facility] 04/29/2017 12:04:30 04/29/20 17 Carbon Monoxide Testing completed Donna Gray [facility] 04/29/2017 12:04:30 04/12/20 17 Smoking cessation counseling completed Sirena Catalan [facility] 04/12/2017 08:33:57 04/12/20 17 Carbon Monoxide Testing completed Sirena Catalan [facility] 04/12/2017 08:45:15 03/25/20 17 Smoking cessation counseling completed Nelly Burnette [facility] 03/25/2017 11:14:27 03/25/20 17 Carbon Monoxide Testing completed Nelly Burnette [facility] 03/25/2017 11:19:34 03/12/20 17 [id number]: Therapeutic Exercise completed Paige Mccarty, PT [address] [place], [address], [facility] 03/12/2017 22:19:10 03/11/20 17 Smoking cessation counseling completed Isabella Spain [facility] 03/11/2017 09:20:38 03/11/20 17 Medicare Wellness Visit completed Isabella Spain [facility] 03/11/2017 09:20:04 03/11/20 17 Carbon Monoxide Testing completed Isabella Spain [facility] 03/11/2017 09:33:13 03/11/20 17 Medicare Risk for Falls Screen completed Isabella Spain [facility] 03/11/2017 09:28:14 02/19/20 17 [id number]: Therapeutic Exercise completed Paige Mccarty, PT [address] [place], [address], [facility] 02/19/2017 07:58:08 02/09/20 17 Smoking cessation counseling completed KIMBERLYN Ramos [address] [place], [address], [facility] 02/08/2017 16:42:38 02/09/20 17 POC Urinalysis Testing completed Evelyn Raphaelkatharinejose antonio [facility] 02/08/2017 16:22:27 01/01/20 17 Smoking Cessation Counselling completed Paige Mccarty, PT [address] [place], [address], [facility] 01/01/2017 10:09:35 01/01/20 17 [id number]: PT Eval, Moderate Complexity completed Paige Mccarty, PT [address] [place], [address], [facility] 01/02/2017 21:17:15 12/25/19 17 Smoking cessation counseling completed Nelly Burnette [facility] 12/25/2016 16:10:51 12/25/19 17 Carbon Monoxide Testing completed Nelly Bunrette [facility] 12/25/2016 16:17:37 08/07/20 16 Smoking cessation counseling completed Nelly Burnette [facility] 08/07/2016 15:35:08 08/07/20 16 Carbon Monoxide Testing completed Nelly Burnette [facility] 08/07/2016 15:42:39 08/07/20 16 POC Urinalysis Testing completed Nelly Burnette [facility] 08/15/2016 15:26:49 07/06/20 16 Smoking cessation counseling completed Ashley [facility] 07/06/2016 10:38:50 07/06/20 16 Carbon Monoxide Testing completed Ashley [facility] 07/06/2016 10:54:18 06/22/20 16 50191: PT Evaluation completed Paige Mccarty, PT [address] [place], [address], [facility] 06/23/2016 22:35:11 06/08/20 16 [facility] 10:30:42 06/08/20 16 Carbon Monoxide Testing [facility] 06/08/2016 10:35:43 03/09/20 16 Smoking cessation counseling completed Nelly Burnette [facility] 03/09/2016 11:16:13 03/09/20 16 Medicare Wellness Visit completed Nelly Burnette [facility] 03/09/2016 11:15:14 03/09/20 16 Carbon Monoxide Testing completed Nelly Burnette [facility] 03/09/2016 11:30:10 03/09/20 16 Medicare Risk for Falls Screen completed Nelly Burnette [facility] 03/09/2016 11:30:34 07/28/20 15 Smoking cessation counseling completed Nelly Burnette [facility] 07/28/2015 11:00:21 03/07/20 15 Medicare Wellness Visit completed Jolly Baumann LPN [facility] 03/07/2015 14:58:35 02/02/20 15 Smoking cessation counseling completed Viviane Kebede [facility] 02/01/2015 11:51:54 Imaging Results Imaging Date Name Status LastModified by Organization Details LastModified Time 10/23/2023 US, retroperitoneum completed galo [facility] (Imaging) [address], [place], [address], 10/24/2023 07:40:14 11/07/2023 LDCT, chest, for lung cancer screening completed [address] [facility] [address] [place] [address], [address], 11/19/2023 10:17:36 11/19/2023 CT, chest completed [facility] [address] [place] [address], [address], 12/03/2023 14:26:26 11/19/2023 CT, chest completed [facility] [address] [place] [address], [address], 12/03/2023 14:26:27 04/30/2024 US, abdominal aorta completed yas crockett [facility] (Imaging) [address] [place], [address], 05/01/2024 09:17:50 Procedure Notes None recorded. Medical [...] Last Updated DateTime 168.91 cm 37.9 kg/m2 217336. 7 g 81 /min 97 mm[Hg] 69 mm[Hg] Amy Bentley LPN [facility] 4 11:39:29 Date Recorded Body height Heart rate Systolic blood pressure Diastolic blood pressure Provider Name and Address Organization Details Last Updated DateTime 11/19/2023 168.91 cm 80 /min 114 mm[Hg] 78 mm[Hg] Flora Quijano , A [facility] 11/19/2023 09:28:48 Date Recorded Body height Systolic blood pressure Diastolic blood pressure Provider Name and Address Organization Details Last Updated DateTime 04/23/2024 168.91 cm 180 mm[Hg] 148 mm[Hg] Haley Sharma CMA [facility] 04/23/2024 11:34:08 Date Recorded Systolic blood pressure Diastolic blood pressure Provider Name and Address Organization Details Last Updated DateTime 04/23/2024 180 mm[Hg] 92 mm[Hg] Coreen Franks [facility] 04/23/2024 12:07:54 Date Recorded Systolic blood pressure Diastolic blood pressure Provider Name and Address Organization Details Last Updated DateTime 04/23/2024 168 mm[Hg] 90 mm[Hg] Chhaya Sosa, YAMILETH [address] [place], [address], [facility] 04/23/2024 13:41:34 Date Recorded Body height Heart rate Systolic blood pressure Diastolic blood pressure Provider Name and Address Organization Details Last Updated DateTime 05/15/2024 168.91 cm 86 /min 105 mm[Hg] 68 mm[Hg] Luis sanders [facility] 05/15/2024 13:56:54 Date Recorded Body temperature Provider Name a dc Address Organization Details Last Updated DateTime 05/15/2024 99 [degF] ADARSH FOY , LAND LEASING INFORMATION CLERK [address] [place], [address] 05/15/2024 15:51:00 Date Recorded Body height Body mass index (BMI) Body weight Heart rate Systolic blood pressure Diastolic blood pressure Provider Name and Address Organization Details Last Updated DateTime 168.91 cm 38.8 kg/m2 399834. 54 g 88 /min 120 mm[Hg] 74 mm[Hg] Sera Mair user, [facility] 11:46:10 Date Recorded Systolic blood pressure Diastolic blood pressure Provider Name and Address Organization Details Last Updated DateTime 05/06/2024 127 mm[Hg] 68 mm[Hg] Margie Man [facility] 05/06/2024 16:02:42 Social History Question Answer Notes LastModified by Organizat ion Details LastModified Time Tobacco Smoking Status Current Every Day Smoker smokes less 1/2 ppd11-1- 10-09-23 less then 1/2 pack a day 11-13-24 6 cig a day Amy Bentley LPN [facility], [facility] 11/13/2023 11:37:21 Do You Have An Advance Directive? Yes Daughter Magno Castellon [phone] Information not available 03/08/2015 What Is Your Level Of Alcohol Consumption? None 04/12/17 Information not available 04/12/2017 What Is Your Level Of Caffeine Consumption? Moderate 2 Cups A Day Information not available 09/29/2021 What Type Of Diet Are You Following? REGULAR [email or web address] Information not available 09/06/2014 Which Illicit Or Recreational Drugs Have You Used? None 04/12/17 Information not available 04/12/2017 Education 12 [email or web address] Information no t available 09/06/2014 What Is Your Occupation? Disabled 2000 Due To Knee Arthritis Information not available 09/06/2014 Do You Use Insect Repellent Routinely? No Information not available 09/29/2021 Live Alone Or With Others? Alone [email or web address] Information not available 09/06/2014 Patient Has Health Care Proxy Signed And In Chart Yes Daughter Magno, Copy In Chart [email or web address] Information not available 09/06/2014 MOLST Form Signed And In Chart 02/08/2023 Information not available 03/05/2023 CCM Consent Discussion 03/12/2023 Information not available 03/14/2023 Marital Status [email or web address] Informatio n not available 09/06/2014 Mosquito Repellent Used Routinely No Information not available 09/06/2014 What Was The Date Of Your Most Recent Tobacco Screening? 06/15/2024 Information not available 06/15/2024 How Many Children Do You Have? 7 1972, 1974, 1976, 1976 (adopted [place]), 1978, 1986, 1986. 15 Grandchildre n, 6 Gr Grand, [address] Information not available 09/07/2021 What Is Your Current Pack Years? [email or web address] Information not available 03/09/2016 What Is Your Relationship Status? Information not available 09/29/2021 Do You Use Your Seat Belt Or Car Seat Routinely? Yes Information not available 09/29/2021 Seat Belts Used Routinely Yes Information not available 09/06/2014 Are You Sexually Active? No [email or web address] Information not available 09/06/2014 Smoke Alarm In Home Yes [email or web address] Information not available 09/06/2014 Do You Have Smoke And Carbon Monoxide Detectors In Your Home? Yes Information not available 09/29/2021 At What Age Did You Start Smoking Tobacco? 16 [email or web address] Information not available 09/06/2014 Are You Passively Exposed To Smoke? Yes Information not available 09/29/2021 How Much Tobacco Do You Smoke? 0.5 PPD [email or web address] Information not available 05/28/2022 General Stress Level Medium [email or web address] Information not available 09/06/2014 Do You Use Sunscreen Routinely? No [email or web address] Information not available 09/06/2014 Do You Or [...] Brother Malignant tumor of lung 60 in fpc Not available 09/06/2014 14:22:23 Brother Motor vehicle [...] conjugate PCV 13 6 completed Not Available [facility] 11/28/2019 02:29:50 influenza, unspecified formulation 4 completed Not Available [facility] 02/07/2023 18:15:23 pneumococcal polysaccharide PPV23 2 completed Not Available [facility] 02/07/2023 18:15:23 influenza, unspecified formulation 2 completed Not Available [facility] 02/07/2023 18:15:23 influenza, unspecified formulation 3 completed Not Available [facility] 02/07/2023 18:15:23 zoster live 2 completed Not Available [facility] 02/07/2023 18:15:23 influenza, unspecified formulation 5 completed Not Available [facility] 02/07/2023 18:15:23 Tdap 5 completed Not Available [facility] 02/07/2023 18:15:23 Pneumococcal conjugate PCV 13 6 completed Not Available [facility] 02/07/2023 18:15:23 influenza, unspecified formulation 6 completed Not Available [facility] 02/07/2023 18:15:23 pneumococcal polysaccharide PPV23 7 completed Not Available [facility] 02/07/2023 18:15:23 influenza, unspecified formulation 7 completed Not Available [facility] 02/07/2023 18:15:23 influenza, unspecified formulation 8 completed Not Available [facility] 02/07/2023 18:15:23 Influenza, split virus, quadrivalent, preservative 9 completed Not Available [facility] 02/07/2023 18:15:23 zoster recombinant 9 completed Not Available [facility] 02/07/2023 18:15:23 Influenza, split virus, quadrivalent, preservative 0 completed Not Available [facility] 02/07/2023 18:15:23 Influenza, high-dose, quadrivalent, PF 2 completed NANDINI Abdullahi [address] [place] [address], [address], [facility] 08/13/2022 14:53:00 COVID-19, mRNA, LNP-S, PF, 30 mcg/0.3 mL dose 1 completed Not Available [facility] 02/07/2023 18:15:23 COVID-19, mRNA, LNP-S, PF, 30 mcg/0.3 mL dose 1 completed Not Available [facility] 02/07/2023 18:15:23 Influenza, high-dose, quadrivalent, PF 3 completed Jude Snowden MD [address] [place] [address], [address], [facility] 07/31/2023 17:03:12 Influenza, high-dose, quadrivalent, PF 1 completed Not Available [facility] 02/07/2023 18:15:23 Past Encounters Encounter ID Performer Location Encounter Start Date Encounter Closed Date Diagnosis/Indication Diagnosis SNOMED-CT Code Diagnosis ICD10 Code Diagnosis Note [id number] NAMITA, [facility], OFFICE [address] [place] [phone] 6 09/06/2014 13:00:24 09/06/2014 14:33:47 Hypertensive disorder 33308146 Tobacco user 752343582 Chronic ob structive pulmonary disease 78226530 Costal chondritis 00282421 [id number] COLBY Caldera, [facility], OFFICE [address] [place] [phone] 6 09/27/2014 11:04:03 09/27/2014 11:58:24 Hypertensive disorder 49979979 Shoulder pain 52022433 [id number] OMI Johnson, [facility], OFFICE [address] [place] [phone] 6 10/11/2014 11:22:07 10/11/2014 13:51:32 Hypertensive disorder 95877547 Tobacco user 053182487 Shoulder pain 39064083 [id number] YAMILETH Christianson, [facility], OFFICE [address] [place] [address] [phone] 6 11/01/2014 10:59:51 11/01/2014 11:41:21 Hypertensive disorder 51302489 Shoulder pain 51757259 Tobacco user 707609764 [id number] OMI Clements, [facility], OFFICE [address] [place] [phone] 6 12/06/2014 09:58:29 12/06/2014 10:57:34 Hypertensive disorder 29238113 Morbid obesity 785829995 Tobacco user 630607038 Chronic ob structive pulmonary disease 43966431 [id number] YAMILETH Christianson, [facility], OFFICE [address] [place] [phone] 6 01/04/2015 13:51:17 01/04/2015 15:24:56 Hypertensive disorder 06252414 Tobacco user 163901291 Shoulder pain 13075022 [id number] Jolly Baumann LPN , [facility], OFFICE [address] [place] [address] [phone] 6 02/01/2015 11:29:20 02/01/2015 12:34:46 Benign essential hypertension 7665708 Blood pressure at goal Tobacco user 531679835 Major depr essive disorder 287785364 Morbid obesity 766828941 [id number] Graciela BREAUX, [facility], OFFICE [address] [place] [address] [phone] 6 03/07/2015 14:33:45 03/07/2015 15:38:53 Adult health examination 895616991 see Risk Assessment and Lifestyle Change Counseling section above Counseling 233869691 Administra tion of diphtheria, pertussis, and tetanus vaccine 117146837 Tobacco user 366042866 Shoulder pain 09419131 Administra tion of bacterial and viral vaccine 254725825 Morbid obesity 217264986 Major depr essive disorder 572030630 Hyperlipidemia 90177641 Lipids in normal range, but CVD risk 25% due to smoking and HTN. In addition is obese and sedentary lifestyle increasing risk further. Therefore could benefit from statin therapy. [id number] YAMILETH Christianson, [facility], OFFICE [address] [place] [address] [id number] 6 07/28/2015 10:37:43 07/28/2015 11:29:31 Lifestyle 381578081 Tobacco user 919404036 Anxiety 91436789 [id number] YAMILETH Christianson, [facility], OFFICE [address] [place] [address] [phone] 6 09/07/2015 13:59:43 09/07/2015 14:45:35 Chronic obstructive pulmonary disease 77918843 J44.9 [id number] Eunice Short NP FP, [facility], OFFICE [address] [place] [address] [phone] 6 09/09/2015 14:41:26 09/09/2015 15:19:44 Benign essential hypertension 3697280 I10 Blood pressure at goal Mixed hyperlipidemia 267 347341 E78.2 Continue to work on diet and exercise as discussed Tobacco user 858461874 Z 72.0 Chronic ob structive pulmonary disease 66284369 J44.9 [id number] Eunice Short NP , [facility], OFFICE [address] [place] [address] [id number] 6 03/09/2016 10:55:03 03/09/2016 12:23:53 Morbid obesity 601082991 E66.01 Major depr essive disorder 311313385 F32.9 Chronic ob structive pulmonary disease 49667301 J44.9 Adult heal th examination 814863206 Z00.00 see Risk Assessment and Lifestyle Change Counseling section above Counseling 201034854 Z71 .9 Mixed hyperlipidemia 267 306260 E78.2 Cholestero l is at goal Continue to work on diet and exercise as discussed Nicotine dependence 5629 4008 Z87.891 Tobacco user 796651745 Z 72.0 Hyperlipidemia 82373212 E78.5 Active or passive immunization 867411490 Z23 Unexplaine d weight loss 663536937 R63.4 [id number] Eunice Short NP , [facility], OFFICE [address] [place] [address] [id number] 6 03/15/2016 15:00:37 03/15/2016 15:57:06 Benign essential hypertension 1328356 I10 Morbid obesity 171883308 E66.01 Dyspnea 071368627 R06.00 Tobacco user 411697755 Z 72.0 [id number] YAMILETH Christianson, [facility], OFFICE [address] [place] [address] [id number] 6 04/26/2016 11:27:30 04/26/2016 12:35:10 Acute upper respiratory infection 50697558 J06.9 Educated patient that URI is a [...] to resolve in 2-4 weeks. Acute bronchitis 1148954 2 J20.9 [id number] Eunice Short NP FP, [facility], OFFICE [address] [place] [address] [phone] 6 06/08/2016 10:25:28 06/08/2016 11:14:21 Benign essential hypertension 3820676 I10 Blood pressure at goal Cigarette smoker 3064344 7 F17.210 Tobacco user 884332165 Z 72.0 Major depr essive disorder 392827740 F32.9 Osteopenia 704118424 M85 .80 [id number] Paige Mccarty, PT Physical Therapy, [address] [address] 6 06/22/2016 15:00:50 06/25/2016 07:43:41 Knee pain 69297393 M25.569 Low back pain 877280603 M54.5 Abnormal gait 08044261 R 26.9 [id number] Eunice Short NP FP, [facility], OFFICE [address] [place] [address] [phone] 6 07/06/2016 10:36:56 07/06/2016 11:12:26 Tobacco user 216046814 Z72.0 Cigarette smoker 1532681 7 F17.210 hopefully [place] for Fredi will be approved Major depr essive disorder 635269237 F32.9 stable on sertraline Benign ess ential hypertension 4641246 I10 Blood pressure not at goal. Resume Benicar HCT and FU in 4-6 wks to recheck. Abdominal pain 53278455 R10.9 [id number] Nelly Burnette CMA , [facility], OFFICE [address] [place] [address] [id number] 6 08/07/2016 15:32:02 08/07/2016 16:51:27 Benign essential hypertension 2061138 I10 Blood pressure at goal, continue current meds. on 3 agents. Cigarette smoker 8772635 7 F17.210 Plans to start the Chantx next month Tobacco user 227740027 Z 72.0 Urinary tr act infectious disease 61111601 N39.0 Patient instructed to push fluids, to follow up for persistent or worsening symptoms or fever or back pain. [id number] Eunice Short NP , [facility], OFFICE [address] [place] [address] [id number] 6 09/10/2016 16:29:26 09/10/2016 17:04:55 Shoulder pain 48331319 M25.512 Benign ess ential hypertension 8854835 I10 Blood pressure at goal Tobacco user 586003420 Z 72.0 Abdominal pain 48273028 R10.9 FU GI as planned. [id number] Eunice Short NP FP, [facility], OFFICE [address] [place] [address] [id number] 6 12/25/2016 16:04:41 12/26/2016 12:46:08 Cigarette smoker 28462586 F17.210 Tobacco user 752173914 Z 72.0 Multifacto rial gait problem 358963819 R26.89 Multiple renal cysts 253 918207 N28.1 Abdominal aortic aneurysm without rupture 38598021 I71.4 [id number] Paige Mccarty, PT Physical Therapy, [address] [address] 01/01/2017 09:45:00 01/03/2017 08:02:33 Knee pain 81140669 M25.096 [id number] KIMBERLYN Ramos FP, [facility], OFFICE [address] [place] [address] [id number] 6 02/08/2017 16:21:33 02/11/2017 10:05:50 Urinary tract infectious disease 32650605 N39.0 -Bactrim as directed-c ulture pending-fl uids-follo w up if no improvemen t in 3 days-prope r whipping technique- cotton underwear Cigarette smoker 5031247 7 F17.210 -start using the patches-gu ms as needed Tobacco user 521871796 Z 72.0 [id number] Paige Mccarty, PT Physical Therapy, [address] 24422[address] 6 02/18/2017 17:06:31 02/19/2017 09:47:16 Knee pain 81012621 M25.569 Low back pain 341089560 M54.5 Abnormal gait 62117592 R 26.9 [id number] Eunice Short NP FP, [facility], OFFICE [address] [place] [address] [phone] 6 03/11/2017 09:17:31 03/11/2017 10:05:00 Adult health examination 885136808 Z00.00 see Risk Assessment and Lifestyle Change Counseling section above Counseling 977323822 Z71 .9 Cigarette smoker 3039009 7 F17.210 Tobacco user 202789050 Z 72.0 Benign ess ential hypertension 7106607 I10 Blood pressure NOT at goal. Mixed hyperlipidemia 267 549570 E78.2 continue atorvastat in. Primary hyperparathyroidism 87287205 E21.0 [id number] Paige Mccarty, PT Physical Therapy, [address] 42926[address] 6 03/12/2017 16:24:31 03/13/2017 07:11:43 Low back pain 909553466 M54.5 Knee pain 14655998 M25.5 69 Abnormal gait 12352787 R 26.9 [id number] Eunice Short NP FP, 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 Replace mouthpiece and twist the top and bottom so that markings do not line up. Clean mouthpiece regularly with soap and water Primary hyperparathyroidism 64498082 E21.0 -labs and bone density 11/28, follow up Dr. Snowden 12/29 Vitamin D deficiency 347 47093 E55.9 -calcium tabs 2 times daily by mouth 315 mg - 250units d [id number] MD NAMITA Bowers, [facility], OFFICE [address] [place] [address] [phone] 6 04/29/2017 11:22:19 04/29/2017 12:49:35 Cigarette smoker 47960710 F17.210 Tobacco user 465512890 Z 72.0 Screening mammography 24 607170 Z12.31 Osteoarthr itis of knee 503085360 M17.0 Shoulder pain 27275586 M 25.559 [id number] YAMILETH Christianson, [facility], OFFICE [address] [place] [address] [id number] 6 05/16/2017 13:24:19 05/16/2017 15:09:41 Cigarette smoker 45751868 F17.210 Tobacco user 302662334 Z 72.0 Facial laceration 291388 008 S01.81XA Gastroesop hageal reflux disease 906462702 K21.9 Morbid obesity 732498727 E66.01 Knee pain 17800503 M25.5 69 Bilateral, worse on R. [id number] Wendy Hopson NP FP, [facility], OFFICE [address] [place] [address] [phone] 6 08/13/2017 11:37:38 08/13/2017 14:13:52 Urinary tract infectious disease 47186090 N39.0 Patient instructed to push fluids, to follow up for persistent or worsening symptoms or fever or back pain. Cigarette smoker 0350933 7 F17.210 not ready to quit. has patch at home and will consider starting it Tobacco user 567071818 Z 72.0 [id number] YAMILETH Christianson, [facility], OFFICE [address] [place] [address] [phone] 6 09/27/2017 15:21:15 09/27/2017 16:18:53 Benign essential hypertension 1469124 I10 Blood pressure at goal Cigarette smoker 7048985 7 F17.210 Tobacco user 585198753 Z 72.0 Knee pain 46267740 M25.5 69 Bilateral, worse on R. Chronic ob structive pulmonary disease 94238809 J44.9 [id number] Eunice Short NP FP, [facility], OFFICE [address] [place] [address] [phone] 6 05/06/2018 10:36:03 05/06/2018 11:50:31 Adult health examination 317222029 Z00.00 see Risk Assessment and Lifestyle Change Counseling section above Counseling 319165540 Z71 .9 Depression screening 171 180141 Z13.89 depression screening tool administer ed, entered into emr, scored and discussed, time greater than 7.5 minutes Advance di rective discussed with patient 371591649 Z71.89 Cigarette smoker 7104540 7 F17.210 Tobacco user 916811558 Z 72.0 Hyperlipidemia 48865097 E78.5 Benign ess ential hypertension 5379841 I10 Blood pressure at goal Primary hyperparathyroidism 24052866 E21.0 [id number] Eunice Short NP , [facility], OFFICE [address] [place] [address] [phone] 6 11/13/2018 11:05:40 11/13/2018 11:44:52 Benign essential hypertension 4210774 I10 Blood pressure at goal Cigarette smoker 0587916 7 F17.210 Tobacco user 769315654 Z 72.0 Candidal intertrigo 2661 88603 B37.2 Chronic ob structive pulmonary disease 75627800 J44.9 Morbid obesity 014330061 E66.01 Primary hyperparathyroidism 89886033 E21.0 Major depr essive disorder 538930473 F32.9 stable on sertraline [id number] Jake Jimenez PA-C , [facility], OFFICE [address] [place] [address] 85214-104 6 02/20/2019 10:16:21 02/20/2019 13:33:48 Cigarette smoker 75078187 F17.210 Discussed and encourage smoking cessation. Patient contemplat ing but not ready. Encourage follow up if needing assistance with this. Abdominal aortic aneurysm without rupture 83516189 I71.4 NO abdominal pain has had up to date imaging. Will contact us if any issues. Intramuscu lar contusion 124012176 T14.8XXA Refer to discussion section for complete summary of visit. [id number] Eunice Short NP , [facility] [facility], OFFICE [address] [place] [address] 06/04/2019 11:08:40 06/04/2019 12:13:47 Adult health examination 650738832 Z00.00 see Risk Assessment and Lifestyle Change Counseling section above Counseling 014817152 Z71 .9 Advance di rective discussed with patient 396226328 Z71.89 Mixed hyperlipidemia 267 227517 E78.2 continue atorvastat in. Cigarette smoker 1450448 7 F17.210 Tobacco user 652213432 Z 72.0 Urinary tr act infectious disease 99071003 N39.0 Patient instructed to push fluids, to follow up for persistent or worsening symptoms or fever or back pain. Screening mammography 24 359981 Z12.31 Benign ess ential hypertension 1497941 I10 Blood pressure at goal [id number] Vicky Avendaño PA-C , [facility], OFFICE [address] [place] [address] 06/19/2019 17:07:14 06/24/2019 15:07:53 Urinary tract infectious disease 94269439 N39.0 - starting new antibiotic and sending for culture, minimal improvemen t with macrobid- Patient instructed to push fluids, to follow up for persistent or worsening symptoms or fever or back pain. Cigarette smoker 6477447 7 F17.210 - not ready to quit cigars Tobacco user 602523986 Z 72.0 [id number] Eunice Short NP , [facility], OFFICE [address] [place] [address] 12/16/2019 15:29:54 12/18/2019 14:21:58 Essential hypertension 03947724 I10 Mixed hyperlipidemia 267 061025 E78.2 Cholestero l is at goal Cholestero l is not at goal Continue to work on diet and exercise as discussed Cigarette smoker 6049865 7 F17.210 Tobacco user 750707906 Z 72.0 Poor balance 575351436 R 27.8 Osteoporosis 85733121 M8 1.0 BMD test 05/2018 Chronic ob structive pulmonary disease 81041113 J44.9 Morbid obesity 071834240 E66.01 Primary hyperparathyroidism 36525381 E21.0 [id number] Eunice Short NP , [facility], OFFICE [address] [place] [address] 06/09/2020 11:18:53 06/10/2020 15:13:48 Major depressive disorder 493862277 F32.9 stable on sertraline , see PHQ9 Adult heal th examination 265705357 Z00.00 see Risk Assessment and Lifestyle Change Counseling section above Counseling 741105302 Z71 .9 including cardiovasc ular risk reduction counseling Depression screening 171 249916 Z13.89 depression screening tool administer ed, entered into emr, scored and discussed, time greater than 7.5 minutes. Negative screening reviewed with patient. Screening for alcohol abuse 605551472 Z13.39 no alcohol at all Benign ess ential hypertension 8603871 I10 Hyperlipidemia 40003154 E78.5 Anxiety 35230631 F41.9 Essential hypertension 13848936 I10 Mixed hyperlipidemia 267 191342 E78.2 on atorvastat in Cigarette smoker 4498015 7 F17.210 Tobacco user 789353503 Z 72.0 Tinea corporis 70765369 B35.4 [id number] Pino Ureña MD , [facility], OFFICE [address] [place] [address] 04/18/2020 14:44:16 04/19/2020 09:35:28 Urinary tract infectious disease 48944270 N39.0 Patient instructed to push fluids, to follow up for persistent or worsening symptoms or fever or back pain. Use the antibiotic . [id number] Vicky Avendaño PA-C , [facility], OFFICE [address] [place] [address] 10/21/2020 11:57:39 10/21/2020 15:23:14 Cigarette smoker 31478379 F17.210 -intereste d in quitting -limited success in the past with patches and gum/lozeng e -recommend nicotrol inhaler, patient expresses interest, advised about cost/unkno wn insurance coverage Injury of hand 516407854 S69.91XA -acute injury of right hand secondary to fall -will xray -advised RICE, NSAIDS/tyl enol for pain relief Injury of knee 969347053 S89.92XA -acute injury of left knee secondary to fall -will xray -advised RICE, NSAIDs/tyl enol for pain relief Injury of nose 24929562 S09.92XA -acute injury of nose secondary to fall -low suspicion for fracture of nasal bones, patient reports structure of nose does not appear changed -will xray -advised ice, NSAIDs/tyl enol for pain relief -return precaution s reviewed [id number] Vicky Avendaño PA-C FP, [facility], OFFICE [address] [place] [address] 10/26/2020 12:05:06 10/27/2020 15:44:13 Injury of hand 736203319 S69.91XA -acute injury of right hand secondary to fall, subsequent encounter -x-ray showed no evidence of fracture, reviewed with pt -advised RICE and tylenol for pain relief Injury of knee 589344175 S89.92XA -acute injury of left knee secondary to fall, subsequent encounter -x-ray showed no evidence of fracture, reviewed with pt -advised RICE and tylenol for pain relief Injury of nose 28888717 S09.92XA -acute injury of nose secondary to fall, subsequent encounter -x-ray showed non-displa florencia fracture, no cosmetic changes, reviewed with pt -advised ice and tylenol for pain relief -return precaution s reviewed [id number] Eunice Short NP FP, [facility], OFFICE [address] [place] [phone] 01/19/2021 10:45:26 01/20/2021 14:27:22 Benign essential hypertension 9225258 I10 Morbid obesity 402307494 E66.01 Cigarette smoker 6975804 7 F17.210 Tobacco user 845961493 Z 72.0 Primary hyperparathyroidism 68073014 E21.0 Will check calcium q 6months. Chronic ob structive pulmonary disease 48310740 J44.9 At high risk for fall 45 54659962 00228151 Z91.89 Has fall alarm, power chair, wheelchair for in home use and walker. [id number] Wendy Hopson NP FP, [facility], OFFICE [address] [place] [address] 02/24/2021 14:22:54 02/27/2021 15:49:47 Backache 144038880 M54.9 left sided back ache x5 days. [...] phone. no distress or fever Cigarette smoker 5116506 7 F17.210 not ready to quit. has patch at home and will consider starting it Tobacco user 532914601 Z 72.0 [id number] Chhaya Sosa NP FP, [facility], OFFICE [address] [place] [phone] 03/02/2021 17:10:00 03/06/2021 16:06:09 Tobacco user 376671160 Z72.0 Abdominal pain 32081628 R10.9 -reassuran ce as the pain seems to be musculoske letal-tyle nol 1000 mg every 8 hours as needed-alexia l with any worsening pain or if you want to do PT [id number] ARLENE MENENDEZ MD , [facility], OFFICE [address] [place] [address] 09/29/2021 13:09:22 09/29/2021 14:07:17 Adult health examination 265627630 Z00.00 see Risk Assessment and Lifestyle Change Counseling section above Counseling 017163001 Z71 .9 including cardiovasc ular risk reduction counseling Depression screening 171 466867 Z13.31 depression screening tool administer ed, entered into emr, scored and discussed, time greater than 7.5 minutes Screening for alcohol abuse 241036764 Z13.39 no alcohol at all Anxiety 51949113 F41.9 controlled , continue meds Benign ess ential hypertension 4821357 I10 Chronic ob structive pulmonary disease 17772443 J44.9 Discussed smoking cessation x 3 m., not ready to quit at this time Morbid obesity 623954313 E66.01 discussed portion control. pt not able to exercise meaningful ly due to shortness of breath and knee pain with weight bearing. Osteoporosis 57431758 M8 1.0 BMD test 05/2018 - just had BMD couple of weeks ago at [facility], awaiting results. Tobacco user 671963958 Z 72.0 see above Essential hypertension 59196739 I10 continue current regimen Mixed hyperlipidemia 267 661211 E78.2 Cholestero l is at goalContin ue to work on diet and exercise as discussed Cigarette smoker 3331076 7 F17.210 Major depr essive disorder 047001794 F32.0 Abdominal aortic aneurysm without rupture 42017356 I77.811 recheck abd aorta, small ectasia 3 cm on last US, I can't find CT results. [id number] Eunice Short NP , [facility], OFFICE [address] [place] [address] 09/07/2021 14:42:55 09/07/2021 15:50:48 Hyperlipidemia 67368637 E78.5 Essential hypertension 98115782 I10 Tobacco user 752161940 Z 72.0 > 30 pack yr history, Yrly LDCT screening for lung cancer - last done 10/2020 Primary hyperparathyroidism 80595318 E21.0 Will check calcium q 6months. Osteoporosis 81655548 M8 1.0 BMD test 05/2018 Chronic ob structive pulmonary disease 62524008 J44.9 Major depr essive disorder 705407752 F32.9 stable on sertraline , see PHQ9 Benign ess ential hypertension 2969166 I10 [id number] ARLENE MENENDEZ MD , [facility], OFFICE [address] [place] [address] 04/06/2022 14:18:57 04/06/2022 15:33:08 Morbid obesity 008663269 E66.01 discussed portion control. pt not able to exercise meaningful ly due to shortness of breath and knee pain with weight bearing.Di scussed [facility] Behaviors for Weight Loss: - Track intake using food diary - may use BeamrP al or written journal - Measure out [...] , Relevant, and Time-sensi tive) Primary hyperparathyroidism 64581616 E21.0 did not want to see endocrinol ogist, but since she has worsening osteoporos is, to reduce risk of fracture, I recommend seeing Dr. Snowden. She now agrees Major depr essive disorder 947235377 F32.0 controlled on sertraline Abdominal aortic aneurysm without rupture 36456501 I77.811 latest 09/2021 3.6 cm increased from 3 cm. Repeat now. Chronic ob structive pulmonary disease 81424127 J44.9 Discussed smoking cessation x 3 m., not ready to quit at this timecontin ue LDCT yearly at [facility] Essential hypertension 94646043 I10 continue current regimen Tobacco user 233130601 Z 72.0 see above Osteoporosis 49210217 M8 1.8 worsening. Check PTH and refer to endocrinol ogist [id number] NANDINI Abdullahi, [facility], OFFICE [address] [place] [address] 05/29/2022 17:36:30 05/31/2022 11:36:05 Urinary tract infectious disease 86728722 N39.0 - symptoms and POC UA consistent [...] or persistent symptoms Increased frequency of urination 857079797 R35.0 Benign ess ential hypertension 9435611 I10 BP above goalencour aged to set up BP check once feeling better COVID-19 774968056 U07.1 pos 05/25, symptom onset 6 days agodiscuss ed no longer a candidate for paxlovid, given she's feeling better she's also deferred Mab infusion txcontinue OTC care [id number] NANDINI Abdullahi, [facility], OFFICE [address] [place] [address] 06/29/2022 14:08:51 06/29/2022 14:42:11 Tobacco user 441288174 Z72.0 1/2 ppd mini cigars, not interested in quitting at this time Benign ess ential hypertension 8480094 I10 BP above goalincrea se diltiazem to 240mg, continue olmesartan /HCTZ 40/25mgf/u in a couple weeks to reassess, encouraged home readings and logging in the interim Chronic ob structive pulmonary disease 21546161 J44.9 lungs CTA today, not using combivent often/does n't feel she needs to Morbid obesity 666331316 E66.01 limited exercise due to knee arthritisr eviewed healthy eating habits [id number] NANDINI Abdullahi FP, [facility], OFFICE [address] [place] [address] 08/13/2022 14:16:08 08/20/2022 15:26:04 Tobacco user 143712601 Z72.0 1/2 ppd mini cigars, not interested in quitting at this timecessat ion discussed and encouraged Active or passive immunization 823911086 Z23 will do flu vaccine today Benign ess ential hypertension 5596736 I10 BP still above goal though improved from last visitincre ase diltiazem to 300mg, continue olmesartan /HCTZ 40/25mgBP cuff sent to karlene to start home checksf/u in 1 month to reassess Morbid obesity 648835407 E66.01 limited exercise due to knee arthritisr eviewed healthy eating habits [id number] Chhaya Sosa NP FP, [facility], OFFICE [address] [place] [address] 12/27/2022 13:31:55 12/27/2022 14:22:40 Adult health examination 494757855 Z00.00 Depression screening 171 776307 Z13.31 depression screening tool administer ed Screening for alcohol abuse 703756762 Z13.39 Alcohol use screening tool administer ed Essential hypertension 56622644 I10 After a discussion of treatment and medication options, which included considerat ion of the best practices in medicine, a medical plan was provided. The patient's opinions and concerns were included in this treatment plan and goal. 1. Discussed Blood Pressure goals. 2. BP GOAL is under 130/80. Pt is NOT at goal. Morbid obesity 572654535 E66.01 - -Work on healthy eating, weight loss, and exercise-C all if you want to see the nutritioni st Major depr essive disorder 674932878 F32.0 -STABLE on meds Chronic ob structive pulmonary disease 20481024 J44.9 -stable on meds Tobacco user 319651679 Z 72.0 We discussed your smoking today for more than 3 minutes. Cigarette use is the leading cause of preventabl e disease, disability , and in the [place]. We talked about tools and medication s available to help you in smoking cessation. We discussed utilizing our smoking cessation coach builder and online resources. Counseled by member of primary health care team 833890555 Z71.9 Today we discussed ways to reduce [...] er may recommend taking daily aspirin. Hypercalciuria 76593681 R82.994 -check labs [id number] Chhaya Sosa NP , [facility], OFFICE [address] [place] [address] 03/12/2023 16:01:01 03/18/2023 08:17:41 Pain of left breast 0574338622 N64.4 Tobacco user 541250847 Z 72.0 We discussed your smoking today for more than 3 minutes. Cigarette use is the leading cause of preventabl e disease, disability , and in the [place]. We talked about tools and medication s available to help you in smoking cessation. We discussed utilizing our smoking cessation coach builder and online resources. Your personal goal: declines Gastroesop hageal reflux disease 521302963 K21.9 restart meds and follow up in 1 month Benign ess ential hypertension 2656587 I10 After a discussion of treatment and [...] . Follow up in 1 months. Dysuria 63125616 R30.0 Atopic dermatitis 738353 01 L20.9 [id number] Chhaya Sosa NP , [facility], OFFICE [address] [place] [address] 05/02/2023 10:09:52 05/02/2023 10:58:36 Tobacco user 201112955 Z72.0 We discussed your smoking today for more than 3 minutes. Cigarette use is the leading cause of preventabl e disease, disability , and in the [place]. We talked about tools and medication s available to help you in smoking cessation. We discussed utilizing our smoking cessation coach builder and online resources. Active or passive immunization 922923264 Z23 shingles- reminded Screening for malignant neoplasm of colon 593867426 Z12.11 declines Dysuria 94314882 R30.0 Patient with urinary symptoms.U MILYLE TO DO URINE AND SHE WILL TAKE HOME W Natasha send urine for culture.Di scussed supportive and preventive measures.P atient instructed to follow up if not better or with new symptoms. Pulmonary emphysema 8743 3001 J43.9 -Patient was validated and supported in ongoing smoking cessation Vitamin D deficiency 347 09674 E55.9 Hyperparathyroidism 6699 9008 E21.3 Pain of le ft knee joint 1906031285 94119 M25.885 [id number] Chhaya Sosa NP FP, [facility], OFFICE [address] [place] [address] 05/30/2023 11:53:26 05/30/2023 12:41:44 Active or passive immunization 942659654 Z23 shingles- reminded Screening for malignant neoplasm of colon 012474029 Z12.11 Referral for a DIRECT booked colonoscop y. This patient is a healthy ASA Class 1 or 2 patient (only mild systemic disease), or a STABLE, well controlled insulin dependent diabetic. They do not have serious cardiac disease ie TX/angiopl asty within 1 year, symptomati c CHF; renal failure with CKD 4 or 5; take Coumadin, Plavix, Aggrenox, etc. Tobacco user 852952791 Z 72.0 We discussed your smoking today for more than 3 minutes. Cigarette use is the leading cause of preventabl e disease, disability , and in the [place]. We talked about tools and medication s available to help you in smoking cessation. We discussed utilizing our smoking cessation coach builder and online resources. Your personal goal: start vareniclin e New medication was discussed today with patient including risks, benefits ,possible and expected side effects. Patient understand s and is willing to begin medication as prescribed . Vitamin D deficiency 347 94252 E55.9 Pulmonary emphysema 8743 3001 J43.9 -Patient was validated and supported in ongoing smoking cessation Cigarette smoker 0796053 7 F17.210 Benign ess ential hypertension 7685178 I10 After a discussion of treatment and medication options, which included considerat ion of the best practices in medicine, a medical plan was provided. The patient's opinions and concerns were included in this treatment plan and goal. 1. Discussed Blood Pressure goals.2. BP GOAL is under 130/80. Patient IS AT GOAL.3.Fol low up in 1 months for smoking. Abdominal aortic aneurysm 642708489 I71.40 [id number] Jude Snowden MD Endocrino logy, [address] [address] 06/12/2023 14:52:56 06/12/2023 15:52:14 Cigarette smoker 54658956 F17.210 Tobacco user 220602589 Z 72.0 Tobacco de pendence syndrome 78255026 F17.290 -current 10cig/d-pl an to start vareniclin e, you are ready to set a date, but you will try this June Primary hyperparathyroidism 02950467 E21.0 -24h urine calcium creatinine while taking in 1000mg calcium daily Osteoporosis 22881626 M8 1.0 [id number] Pollo Castellon MD Sports Medicine, [facility] [address] [place] [address] 08/14/2023 13:35:19 08/21/2023 15:37:35 Tobacco user 208505705 Z72.0 Anabela and I did discuss smoking [...] cessation. Pain of le ft knee joint 9737790859 62312 M25.562 Anabela is a 72-year-ol d female [...] her back as needed for further care. [id number] Chhaya Sosa NP , [facility], OFFICE [address] [place] [address] 06/21/2023 09:17:58 06/25/2023 13:41:04 Tobacco user 670945694 Z72.0 We discussed your smoking today for more than 3 minutes. Cigarette use is the leading cause of preventabl e disease, disability , and in the [place]. We talked about tools and medication s available to help you in smoking cessation. We discussed utilizing our smoking cessation coach builder and online resources. Has michael goldman hasnt started. Recurrent urinary tract infection 489831263 N39.0 After a discussion of treatment and [...] or worsening symptoms. Major depr essive disorder 897961306 F32.0 -STABLE on meds [id number] NANDINI Abdullahi FP, [facility], OFFICE [address] [place] [address] 06/24/2023 17:15:42 06/26/2023 08:42:29 Tobacco user 299780871 Z72.0 We discussed your smoking today for more than 3 minutes. Cigarette use is the leading cause of preventabl e disease, disability , and in the [facility]. We talked about tools and medication s available to help you in smoking cessation. We discussed utilizing our smoking cessation coach builder and online resources. Your personal goal: to quit! recently started oral vareniclin e to help - continue Active or passive immunization 880756963 Z23 Shingrix: had 1st dose Cigarette smoker 2125140 7 F17.210 reports she's in the LDCT program already Hypertensive disorder 38 501074 I10 BP at goal, continue current regimen Vaginal irritation 00000 6004 N89.8 unclear etiology but discussed suspect yeastdecli didier vaginal swab today, does not have active d/cwill try topical clotrimazo le externally to startcall if worsening/ not resolving Urinary tr act infectious disease 46036792 N39.0 finish abx as prescribed , f/u if not resolved after course [id number] Chhaya Sosa NP FP, [facility], OFFICE [address] [place] [address] 07/11/2023 11:37:45 07/12/2023 09:04:54 Tobacco user 411718492 Z72.0 We discussed your smoking today for more than 3 minutes. Cigarette use is the leading cause of preventabl e disease, disability , and in the [place]. We talked about tools and medication s available to help you in smoking cessation. We discussed utilizing our smoking cessation coach builder and online resources. Active or passive immunization 227106707 Z23 shinglchivo- reminded Recurrent urinary tract infection 757073634 N39.0 After a discussion of treatment and [...] ongoing smoking cessation Major depr essive disorder 005729754 F32.0 -STABLE on meds [id number] Jude Snowden MD Endocrino log, [facility] [address] [place] [address] 07/31/2023 12:55:36 07/31/2023 13:54:21 Osteoporosis 45605800 M81.0 Tobacco user 469313188 Z 72.0 Primary hyperparathyroidism 34262267 E21.0 -please stop olmesartan -hydrochlo rothiazide and repeat bp check with REDUCING MACHINE OPERATOR Ian in 2 to 4 weeks -after 1 week, reassess 24h urine calcium creatinine while taking in 1000mg calcium daily, 3 to 4 servings of dairy daily -hctz falsely lowers urine calcium Active or passive immunization 330685110 Z23 Cigarette smoker 0708775 7 F17.210 Tobacco de pendence syndrome 72904136 F17.290 -you smoke 1st thing in the morning-gr andson gets on nerves and is one reason you smoke-curr ent up 10cig/d-yo u tried vareniclin e 2 halves, then stopped due to grandson staying with you Essential hypertension 19116618 I10 -please stop olmesartan -hydrochlo rothiazide and repeat bp check with REDUCING MACHINE OPERATOR Ian in 2 to 4 weeks [id number] Jude Snowden MD Endocrino logy, [facility] [address] [place] [address] 09/11/2023 12:17:04 09/11/2023 14:13:05 Osteoporosis 40057377 M81.0 Primary hyperparathyroidism 09951778 E21.0 -please stop olmesartan -hydrochlo rothiazide , make sure you are off this, your pharmacy states you picked this up today -add calcium 250mg by mouth twice daily, yogurt/priya carlos 2x/d -reassess 24h urine calcium creatinine while taking in 1000mg calcium daily, 2 servings of dairy daily -hctz falsely lowers urine calcium Benign ess ential hypertension 1367078 I10 Tobacco user 668681412 Z 72.0 Cigarette smoker 1450424 7 F17.210 Tobacco de pendence syndrome 64168002 F17.290 -you smoke 1st thing in the morning-cu rrent up 6cig/d-you tried vareniclin e, then stopped due to wanting to smoke more-lozen ges make you gag-you sometimes get a craving to have a cig-you have other things on your mind Essential hypertension 84328916 I10 -please stop olmesartan -hydrochlo rothiazide [id number] Chhaya Sosa NP FP, [facility], OFFICE [address] [place] [address] 09/20/2023 09:38:38 09/23/2023 09:04:52 Active or passive immunization 339555597 Z23 shingles- reminded Tobacco user 433194567 Z 72.0 We discussed your smoking today for more than 3 minutes. Cigarette use is the leading cause of preventabl e disease, disability , and in the [place]. We talked about tools and medication s available to help you in smoking cessation. We discussed utilizing our smoking cessation coach builder and online resources. Your personal goal: Morbid obesity 277777546 E66.01 - -Work on healthy eating, weight loss, and exercise-C all if you want to see the nutritioni Chronic ob structive pulmonary disease 93337189 J44.9 -stable on meds [id number] Jude Snowden MD Endocrino logy, [facility] [address] [place] [address] 10/09/2023 13:53:57 10/09/2023 15:46:30 Osteoporosis 38601332 M81.0 Benign ess ential hypertension 7258730 I10 Primary hyperparathyroidism 38962003 E21.0 -please be off olmesartan -hydrochlo rothiazide , make sure you are off this, your pharmacy states you picked this up today - calcium 250mg by mouth twice daily, yogurt/priya carlos 2x/d -reassess 24h urine calcium creatinine while taking in 1000mg calcium daily, 2 servings of dairy daily -hctz falsely lowers urine calcium Tobacco user 004281057 Z 72.0 Cigarette smoker 7019668 7 F17.210 Tobacco de pendence syndrome 76354096 F17.290 -you smoke 1st thing in the morning-cu rrent up 5 to 6cig/d-you tried vareniclin e, then stopped due to wanting to smoke more-lozen ges make you gag-you sometimes get a craving to have a cig-you have other things on your mind Essential hypertension 90916023 I10 -please stop olmesartan -hydrochlo rothiazide prior to urine calcium testing, may restart after [id number] Jude Snowden MD Endocrino logy, [facility] [address] [place] [address] 11/13/2023 11:11:43 11/13/2023 12:54:44 Primary hyperparathyroidism 20670502 E21.0 -I suggest blood CASR (calcium sensing receptor) genetic testing, you decline -please consider a second opinion or genetic consult after reviewing with your primary provider -return as needed -stay on olmesartan -hydrochlo rothiazide -stop calcium supplement s -hctz falsely lowers urine calcium, but you did not take this during urine testing Osteoporosis 91282065 M8 1.0 Benign ess ential hypertension 3211939 I10 Tobacco user 832444743 Z 72.0 Cigarette smoker 1139650 7 F17.210 Tobacco de pendence syndrome 97825446 F17.290 -you smoke 1st thing in the morning-cu rrent up 6cig/d-you tried vareniclin e, then stopped due to wanting to smoke more-lozen ges make you gag-you sometimes get a craving to have a cig-you have other things on your mind Essential hypertension 51668902 I10 -continue olmesartan -hydrochlo rothiazide 8980777 YAMILETH Negro, [facility], OFFICE [address] [place] [address] 11/19/2023 09:17:21 11/19/2023 10:08:31 Nicotine dependence 92537131 F17.200 We discussed your smoking/va ping today for more than 3 minutes. Cigarette/ pod use is the leading cause of preventabl e disease, disability , and in the [place]. We talked about tools and medication s available to help you in smoking/va ping cessation. We discussed utilizing our smoking cessation coach builder and online resources. Active or passive immunization 525031884 Z23 shingles- reminded Hyperlipidemia 72909233 E78.5 -check labs Prediabetes 358505274 R7 3.03 -stable Morbid obesity 983892997 E66.01 - -Work on healthy eating, weight loss, and exercise-C all if you want to see the nutritioni Major depr essive disorder 926773392 F32.0 -STABLE on meds-follo w up in 4 months Chronic ob structive pulmonary disease 22245503 J44.9 -stable on meds-encou raged daily walking [id number] Chhaya Sosa NP FP, [facility], OFFICE [address] [place] [address] 04/23/2024 11:07:23 04/23/2024 12:36:32 Active or passive immunization 789915868 Z23 shingles- reminded Nicotine dependence 5629 4008 [...] cessation. We discussed utilizing our smoking cessation coach builder and online resources. Your personal goal: Currently does not want to start smoking cessation. Increased frequency of urination 893692427 R35.0 Urinary frequency at night. unable to ambulate to bathroom at night. Will order urine culture to assess for infection. Urinary incontinence 165 349631 R32 Informed on kegel exercises, option of physical therapy.Di scussed use of urinary pads/under wear. Dilatation of aorta 2666 0001 I77.811 Benign ess ential hypertension 4088473 I10 After a discussion of treatment and [...] for wellness Chronic ob structive pulmonary disease 24203901 J44.9 -stable on meds-encou raged daily walking Abdominal aortic aneurysm 848940152 I71.40 -to get ultrasound Primary hyperparathyroidism 76640033 E21.0 -follow up w Dr Snowden as discussed todat Major depr essive disorder 555805797 F32.0 -STABLE on meds-follo w up in 2 months [id number] KIMBERLYN MOLINA FP, [facility], OFF[address] [place] [address] 05/15/2024 13:44:45 05/15/2024 15:28:47 Pyelonephritis 30064654 N12 Pt w L-sided flank pain, fatigue, [...] to r/u other causes. Fracture of fibula 36878 007 S82.401A in wheelchair unable to get on and off toilet here [id number] Chhaya Sosa NP FP, [facility], OFF[address] [place] [address] 06/15/2024 11:30:11 06/15/2024 12:15:35 Nicotine dependence 60492733 F17.200 We discussed your smoking/va ping today [...] cessation. We discussed utilizing our smoking cessation coach builder and online resources. Active or passive immunization 513634588 Z23 shingles- reminded Aneurysm o f infrarenal abdominal aorta 940462305 I71.43 After a discussion of treatment and medication options, which included considerat ion of the best practices in medicine, a medical plan was provided. The patient's opinions and concerns were included in this treatment plan and goal. -Number to VASCULAR given and patient instructed to schedule the appointmen t. Referral completed. -If this specialty office requires [facility] to schedule the appointmen t the patient will call our office back and we will have the referrals department schedule it. -Will call with any new concerns or worsening symptoms. Smoker 13950807 F17.200 We talked about tools and medication s available to help you in smoking/va ping cessation. We discussed utilizing our smoking cessation coach builder and online resources. Entropion 69040797 H02.0 09 -to see eye surgeon next week Benign ess ential hypertension 4240297 I10 After a discussion of treatment and [...] Directives Directive Y: Daughter Magno Castellon [phone] Payers Encounter Date Sequence Insurance Name Policy Number Policy Porras Covered Member ID Porras Member ID Guarantor Name 11/13/2023 2 [place] Anabela J Gillette [id number] [facility] 11/13/2023 1 [place] [employer] Anabela J Gillette [id number] [facility] 11/19/2023 2 [place] Anabela J Gillette [id number] [facility] 11/19/2023 1 [place] [employer] Anabela J Gillette [id number] [facility] 04/23/2024 2 [place] Anabela J Gillette [id number] [facility] 04/23/2024 1 [place] [employer] Anabela J Gillette [id number] [facility] 05/15/2024 2 [place] Anabela J Gillette [id number] [facility] 05/15/2024 1 [place] [employer] Anabela J Gillette [id number] [facility] 06/15/2024 2 [place] Anabela J Gillette [id number] [facility] 06/15/2024 1 [place] [employer] Anabela J Gillette [id number] [facility] Notes Date Note Type Note Provider Name and Address Organization Details Recorded Time 4 text/html Follow-Up: primary hyperparathyroidismFollo w-Up: osteoporosisFollow-Up: benign essential hypertensionFollow-Up: tobacco userissues;discuss labs from 10/22/23 no falls fractures or kidney stones Jude Snowden MD [address] [place] [address], [place], [address], [facility] 11/13/2023 12:22:59 4 text/html 09/20/23 got wheel chair fixed, didnt get her new one soc hx - Miir beth- helps w rides (pt here ) [...] ok w inhalers Chhaya Sosa NP [address] [place], [address], [facility] 11/19/2023 10:20:12 4 text/html 04/23/2024I am a student, Coreen TAMEZ, working with Sana Sosa NP. Patient states doing well. David gr son (ellyn son) helping her. Lives with grandson at home. Feel safe at home. Denies any falls.Has safe deposit box rental clerk to help w cleaning once a week, [...] ok w inhalers Chhaya Sosa NP [address] [place], [address], [facility] 04/23/2024 13:42:17 4 text/html here w/ daughter [...] gallbladder removeddoes have an aneurysmsmoke ADARSH FOY, LAND LEASING INFORMATION CLERK [address] [place], [address], [facility] 05/15/2024 15:55:11 4 text/html 06/15/24 Pre op Patient has no concerns. Pre op for entropian surgery requested by Dr Brandon Londono.[facility] Surgery next week- 06/23/24 HCP - magno, in chartMolst in chart, wants resuscitation. No issues w anesthesia in past SmokingDeclines medsstill smoking regularlyldct in 11/03 ordered. Chhaya Sosa, YAMILETH [address] [place], [address], [facility] 06/15/2024 12:35:01 OBGyn Episode No OBEpisode recorded.
--- OUTSIDE RECORDS SUMMARY | 2024-12-21 06:01 | XMS_ITS | Continuity of Care Document ---
Author Organization [facility], [facility] Address [address] [place] [address] Care Team Providers Care Dust Box Worker Name Role Phone NIKITA LIN Primary Care Provide r [facility] 2ND FLOOR OTHER Assessment No assessment recorded. [...] Address Organization Details Recorded Time Pulmonary emphysema 00838957 Active 2022 VANGIE LORD [address], [address], [place], [address], [facility] 3 10:46:22 Osteoarth ritis 288359060 Active 2022 VANGIE LORD [address], [address], [place], [address], [facility] 3 10:46:28 Asthma 535672629 Active 2022 VANGIE LORD [address], [address], [place], [address], [facility] 3 10:46:32 Cyst of breast 650898483 Completed 202209/07/2024 KIMBERLYN MERCEDES [address], [address], [place], [address], [facility] 4 20:44:27 Chronic obstructi ve pulmonary disease 01527328 Active 2022 VANGIE LORD [address], [address], [place], [address], [facility] 3 10:46:48 Obesity 546658460 Completed 202209/07/2024 KIMBERLYN MERCEDES [address], [address], [place], [address], [facility] 4 20:44:27 Depressiv e disorder 11554684 Active [address], [address], [place], [address], [facility] 3 10:47:08 Hyperlipi demia 60690764 Active [address], [address], [place], [address], [facility] 3 10:47:16 Polyp of colon 43092282 Completed 202209/07/2024 KIMBERLYN MERCEDES [address] [place] [address], [address], [place], [address], [facility] 4 20:44:27 History of deep vein thrombosi s 023638912 Active [address], [address], [place], [address], [facility] 3 10:47:37 Essential hypertens ion 23211692 Active [address], [address], [place], [address], [facility] 3 10:51:08 Closed fracture of left patella 026597752607 23380 Completed 202209/07/2024 KIMBERLYN MERCEDES [address], [address], [place], [address], [facility] 4 20:44:27 Gastroeso phageal reflux disease without esophagit is 546849939 Active [address], [address], [place], [address], [facility] 3 10:57:14 Fall Active 2022 VANGIE LORENZANA [address], [address], [place], [address], [facility] 3 11:02:17 Fracture of proximal end of femur 781336741 Completed 202309/07/2024 KIMBERLYN MERCEDES [address], [place], [address], [facility] 4 10:10:21 Tobacco user 950286910 Active 2023 VANGIE LORENZANA [address], [address], [place], [address], [facility] 4 15:12:34 Hypercalc emia 11759548 Completed 202309/07/2024 KIMBERLYN MERCEDES [address], [address], [place], [address], [facility] 4 20:44:27 History of thrombocy topenia 845720108565 08 Completed 202309/07/2024 KIMBERLYN MERCEDES [address], [address], [place], [address], [facility] 4 20:48:33 Constipat ion 28994634 Active 2023 Holly Robles MD [address], [address], [place], [address], [facility] 4 21:45:11 Fracture of proximal end of femur 547951276 Active 2023 KIMBERLYN MERCEDES [address], [address], [place], [address], [facility] 4 10:10:21 Problem Notes None recorded. Procedures Surgical History Date Name Laterality Status Provider Name and Address Organization Details Recorded Time ligation of fallopian tube completed VANGIE [address], [place], [address], [facility] 01/28/2023 10:47:49 cholecystectomy completed VANGIE [address] [place] [address], [address], [place], [address], [facility] 01/28/2023 10:47:57 Imaging Results None recorded. [...] every day, 1 ppd VANGIE LORD [address], [address], [place], [address], [facility] 01/28/2023 10:48:58 Do You Have An [...] Do You Have A Medical Power Of Sports Broadcaster? Yes Information not available 07/20/2024 What Was [...] (COVID-19) vaccine, UNSPECIFIED 1 completed Minnie Schwab [facility] 01/28/2023 16:51:35 SARS-COV-2 (COVID-19) vaccine, UNSPECIFIED 1 completed Minnie Schwab [facility] 01/28/2023 16:51:48 Tdap 5 completed Minnie Schwab [facility] 01/28/2023 16:52:09 influenza, unspecified formulation 1 completed Minnie Schwab [facility] 01/28/2023 16:52:33 pneumococcal conjugate PCV 7 6 completed Minnie Schwab [facility] 01/28/2023 16:53:01 pneumococcal polysaccharide PPV23 2 completed Minnie Schwab [facility] 01/28/2023 16:53:16 zoster recombinant 9 completed Minnie Schwab [facility] 01/28/2023 16:53:33 zoster live 2 completed Minnie Schwab [facility] 01/28/2023 16:53:50 Influenza, adjuvanted, quadrivalent, PF [facility] 12/11/[facility]23 11:33:48 Influenza, adjuvanted, quadrivalent, PF 3 completed Mily Almonte [facility] 01/09/2024 11:17:44 Past Encounters Encounter ID Performer Location Encounter Start Date Encounter Closed Date Diagnosis/Indication Diagnosis SNOMED-CT Code Diagnosis ICD10 Code Diagnosis Note [id number] KIMBERLYN MERCEDES СВЕТЛАНА BLANK[address] [place] [address] 11/09/2024 13:20:09 11/18/2024 11:14:37 Recurrent urinary tract infection 390356236 N39.0 abx completedm onitor for reoccurenc ewater/ increased fluids encouraged [id number] KIMBERLYN MERCEDES СВЕТЛАНА DA [address] [facility] [place] [address] 12/10/2024 15:22:50 12/14/2024 16:02:52 Left sided abdominal pain 528195860 R10.9 patient states that she has had this pain in the past and it has been intermitte nt and ongoing, she does not recall if she has seen GIdiscusse d with patient and nursingche ck labs cbc, CMP,straig ht cath for UA with c/sxray KUBconside r referral to GI if labs are non specific Dizziness 237003902 R42 BP 160's (could be related to pain)start meclizine 12.5 mg q 8 prnmonitor for resolution Health Concerns Section Related Observation LastModified by Organization Detai ls LastModified Time None Recorded Concern Status LastModified by Organization Details LastModified Time None Recorded Payers Encounter Date Sequence Insurance Name Policy Number Policy Porras Covered Member ID Porras Member ID Guarantor Name 12/10/2024 2 [place] [facility] Anabela Gillette [id number] Anabela 12/10/2024 1 [place] [employer] Anabela Gillette [id number] [facility] Notes Date Note Type Note [...] no tenderness or distention. KIMBERLYN MERCEDES [address], [address], [place], [address], [facility] 12/10/2024 18:43:42 OBGyn Episode No OBEpisode recorded.
[2024-12-21 06:10] LABS: Basophils Absolute Auto 0.1 X10*3/uL (0.0-0.2); Basophils Percent Auto 0.9 % (0-2); Eosinophils Absolute Auto 0.1 X10*3/uL (0.0-0.4); Eosinophils Percent Auto 2.5 % (0-4); Hematocrit 35.1 % (37.0-47.0); Hemoglobin 11.7 g/dl (12.0-16.0); Imm Gran Abs Auto 0.02 X10*3/uL (0.00-0.03); Imm Gran Pct Auto 0.4 % (0.0-0.4); Lymphocytes Percent Auto 35.2 % (20-40); Mean Corpuscular HGB Conc 33.3 g/dl (31.0-35.0); Mean Corpuscular Hemoglobin 34.7 pg (27.0-33.0); Mean Corpuscular Volume 104.2 fL (80.0-98.0); Mean Platelet Volume 10.5 fL (9.4-12.3); Monocytes Absolute Auto 0.4 X10*3/uL (0.1-1.2); Monocytes Percent Auto 6.9 % (2-11); Neutrophils Absolute Auto 3.1 x10*3/uL (2.0-8.3); Neutrophils Percent Auto 54.1 % (45-73); Platelet Count 149 X10*3/uL (160-400); Red Blood Count 3.37 X10*6/uL (4.20-5.50); Red Cell Distribution Width 13.5 % (11.0-16.0); White Blood Count 5.6 X10*3/uL (4.8-10.8)
[2024-12-21 06:29] LABS: Anion Gap 11 (12-20); Blood Urea Nitrogen 19 mg/dL (9-16); Calcium 10.9 mg/dL (8.4-10.2); Carbon Dioxide 27 mmol/L (22-29); Chloride 108 mmol/L (96-108); Estimated Glomerular Filt Rate > 60; Glucose Random 83 mg/dL (60-115); Potassium 3.7 mmol/L (3.3-5.1); Sodium 142 mmol/L (135-145)
== END 2024-12-21 05:57 | disposition home or self-care (01) ==
LOC: HO.MMNH2L 05:56
PROVIDERS: Visit Provider Student in an Organized Health Care Education/Training Program
DX: J44.9 Chronic obstructive pulmonary disease, unspecified (principal); F32.9 Major depressive disorder, single episode, unspecified; E46 Unspecified protein-calorie malnutrition
CPT/HCPCS: 36415; 80048; 85025

== ENCOUNTER 2024-12-28 06:21 | Outpatient (REF) | payer MEDICARE, MEDICAID, SELFPAY ==
[2024-12-28 05:58] LABS: MANUAL DIFF FLAG NO
[2024-12-28 06:13] LABS: Basophils Absolute Auto 0.1 X10*3/uL (0.0-0.2); Basophils Percent Auto 0.9 % (0-2); Eosinophils Absolute Auto 0.1 X10*3/uL (0.0-0.4); Eosinophils Percent Auto 2.1 % (0-4); Hematocrit 36.6 % (37.0-47.0); Hemoglobin 12.3 g/dl (12.0-16.0); Imm Gran Abs Auto 0.01 X10*3/uL (0.00-0.03); Imm Gran Pct Auto 0.2 % (0.0-0.4); Lymphocytes Absolute Auto 2.1 X10*3/uL (1.2-4.9); Lymphocytes Percent Auto 36.1 % (20-40); Mean Corpuscular HGB Conc 33.6 g/dl (31.0-35.0); Mean Corpuscular Hemoglobin 34.6 pg (27.0-33.0); Mean Corpuscular Volume 103.1 fL (80.0-98.0); Mean Platelet Volume 10.1 fL (9.4-12.3); Monocytes Absolute Auto 0.4 X10*3/uL (0.1-1.2); Monocytes Percent Auto 6.7 % (2-11); Neutrophils Absolute Auto 3.1 x10*3/uL (2.0-8.3); Platelet Count 149 X10*3/uL (160-400); Red Blood Count 3.55 X10*6/uL (4.20-5.50); Red Cell Distribution Width 13.8 % (11.0-16.0); White Blood Count 5.7 X10*3/uL (4.8-10.8)
--- OUTSIDE RECORDS SUMMARY | 2024-12-28 06:26 | XMS_ITS | Clinical Summary ---
Author Organization [facility] [address] [facility] [address] Address [address] [place] [address] Phone Care Team Providers Care Freight Clerk Name Role Phone Saqib Lock MD Primary Care Provi amelia Encounters Date Type Department Care Team Description 11/16/2024 Telephone Lung Screening Program - [address] [phone] Jeanie Anders [place] 11/02/2024 Telephone Lung Screening Program - [address] [phone] [place] Appointment (Upcoming LDCT) from Last 3 Months Medical History Medical History Date Comments Current every day smoker DX:Curr ent every day smoker Essential (primary) hypertension DX:Essential (primary) hypertension COPD (chronic obstructive pu lmonary disease) ([facility]) DX:COPD (chronic obstructive pulmonary disease) ([facility]) Depression DX:Depression Thyroid disease DX:Thyroid disea se [...] Info) Description 01/28/2025 9:30 AM EDT Appointment [facility] CT Scan [address] [place] [phone] Health Maintenance Due Date Last Done Comments Breast Cancer Screening 1950 DTaP,Tdap,and Td Vaccines (1 - Tdap) 1969 Pneumococcal Vaccine: 50+ Ye ars (1 of 1 - PCV) 2000 Zoster Vaccines (1 of 2) 2000 Colorectal Cancer Screening: Colonoscopy 10/09/2022 Depression Screening [...] patient's age to complete this topic Meningococcal B Vacine Aged Out No lo nger eligible based on patient's age to complete this topic RSV Immunization Patients Un amelia 20 months Aged Out No longer eligible b ased on patient's age to complete this topic Varicella Vaccines Aged Out No longer eligible based on patient's age to complete this topic Insurance [place] - [place] MEDICARE Care Teams Freight Clerk Relationship Specialty Start Date End Date Saqib Lock MD [address] [place], [place] PCP - General 10/30/22
--- OUTSIDE RECORDS SUMMARY | 2024-12-28 06:27 | XMS_ITS | Data Portability ---
Author Organization [facility], Main Office Address [address], [address] [place] [address] Care Team Providers Care Guest Attendant Name Role Phone NIKITA LIN Primary Care Provide r СВЕТЛАНА ROBERSON 2ND FLOOR OTHER Assessment Encounter Date Assessment Date Assessment LastModified by Organization Details LastModified Time 10/26/2024 10/26/2024 Labs 09/14: [id number] 4.6-Bun 16- cr 0.7-wbc 7.1-hgb 9.4-hct 28.7-plt 222 Labs 09/28: Na 144- K 3.0-Bun 12- Cr 0.6-wbc 9.6-hgb 10.40 hct 31.0-plt 198 Labs 10/05:Na 141- K 3.7-Bun 13- Cr 0.6-wbc 5.5-hgb 10.7-hct 32.2-plt 163 Labs 10/13: Na 141-K 3.8-Bun 14-Cr 0.6-wbc 8.2-hgb 11.8-otc60-wz t 188-calcium 12.7 Labs 10/19: Na 141- K 3.2-Bun 18-cr 0.6-wbc 3.2-hgb 11.5-hct 34.7-200 Labs 10/26: Na 143-K 3.8-Bun 21- Cr 0.8-wbc 6.6-hgb 11.7-hct 35-plt 18- Not available 10/26/2024 14:34:38 11/02/2024 11/02/2024 Labs 09/14: [id number] 4.6-Bun 16- cr 0.7-wbc 7.1-hgb 9.4-hct 28.7-plt 222 Labs 09/28: Na 144- K 3.0-Bun 12- Cr 0.6-wbc 9.6-hgb 10.40 hct 31.0-plt 198 Labs 10/05:Na 141- K 3.7-Bun 13- Cr 0.6-wbc 5.5-hgb 10.7-hct 32.2-plt 163 Labs 10/13: Na 141-K 3.8-Bun 14-Cr 0.6-wbc 8.2-hgb 11.8-aba59-se t 188-calcium 12.7 Labs 10/19: Na 141- K 3.2-Bun 18-cr 0.6-wbc 3.2-hgb 11.5-hct 34.7-200 Labs 10/26: Na 143-K 3.8-Bun 21- Cr 0.8-wbc 6.6-hgb 11.7-hct 35-plt 18- Not available 11/02/2024 12:34:17 11/05/2024 11/05/2024 Labs 09/14: [id number] 4.6-Bun 16- cr 0.7-wbc 7.1-hgb 9.4-hct 28.7-plt 222 Labs 09/28: Na 144- K 3.0-Bun 12- Cr 0.6-wbc 9.6-hgb 10.40 hct 31.0-plt 198 Labs 10/05:Na 141- K 3.7-Bun 13- Cr 0.6-wbc 5.5-hgb 10.7-hct 32.2-plt 163 Labs 10/13: Na 141-K 3.8-Bun 14-Cr 0.6-wbc 8.2-hgb 11.8-hkg01-cb t 188-calcium 12.7 Labs 10/19: Na 141- K 3.2-Bun 18-cr 0.6-wbc 3.2-hgb 11.5-hct 34.7-200 Labs 10/26: Na 143-K 3.8-Bun 21- Cr 0.8-wbc 6.6-hgb 11.7-hct 35-plt 18- Not available 11/05/2024 14:20:13 11/09/2024 11/09/2024 Labs 09/14: [id number] 4.6-Bun 16- cr 0.7-wbc 7.1-hgb 9.4-hct 28.7-plt 222 Labs 09/28: Na 144- K 3.0-Bun 12- Cr 0.6-wbc 9.6-hgb 10.40 hct 31.0-plt 198 Labs 10/05:Na 141- K 3.7-Bun 13- Cr 0.6-wbc 5.5-hgb 10.7-hct 32.2-plt 163 Labs 10/13: Na 141-K 3.8-Bun 14-Cr 0.6-wbc 8.2-hgb 11.8-jcq62-jv t 188-calcium 12.7 Labs 10/19: Na 141- [...] Address Organization Details Recorded Time Pulmonary emphysema 52640432 Active [address], [address], [place], [address], [employer] 3 10:46:22 Osteoarth ritis 330041422 Active [address] [address] [place] [address], [address], [place], [address], [employer] 3 10:46:28 Asthma 901223476 Active [address], [address], [place], [address], [employer] 3 10:46:32 Cyst of breast 494936931 Completed 202209/07/2024 KIMBERLYN MERCEDES [address] [facility], [address], [place], [address], [facility] 4 20:44:27 Chronic obstructi ve pulmonary disease 06117753 Active [address] [place] [address], [address], [place], [address], [place] [facility] 3 10:46:48 Obesity 196153673 Completed 202209/07/2024 KIMBERLYN MERCEDES [address] [facility], [address], [place], [address], [facility] 4 20:44:27 Depressiv e disorder 86769862 Active [address], [address], [place], [address], [place] [facility] 3 10:47:08 Hyperlipi demia 40652932 Active [address], [address], [place], [address], [facility] 3 10:47:16 Polyp of colon 91640630 Completed 202209/07/2024 KIMBERLYN MERCEDES [address] [facility], [address], [place], [address], [facility] 4 20:44:27 History of deep vein thrombosi s 555187357 Active [address], [address], [place], [address], [facility] 3 10:47:37 Essential hypertens ion 93578044 Active [address], [address], [place], [address], [facility] 3 10:51:08 Closed fracture of left patella 940931050948 96167 Completed 202209/07/2024 KIMBERLYN MERCEDES [address] [facility], [address], [place], [address], [facility] 4 20:44:27 Gastroeso phageal reflux disease without esophagit is 731998248 Active 2022 V[address] LORENZANA [address], [address], [place], [address], [facility] 3 10:57:14 Fall Active 2022 VANGIEDIMA LORENZANA [address], [address], [place], [address], [facility] 3 11:02:17 Fracture of proximal end of femur 044350049 Completed 202309/07/2024 KIMBERLYN MERCEDES [address], [place], [address], [facility] 4 10:10:21 Tobacco user 784327764 Active 2023 VANGIE LORENZANA [address] , [address], [place], [address], [facility] 4 15:12:34 Hypercalc emia 77246680 Completed 202309/07/2024 KIMBERLYN MERCEDES [address] , [address], [place], [address], [facility] 4 20:44:27 History of thrombocy topenia 276290636732 08 Completed 202309/07/2024 KIMBERLYN MERCEDES [address] , [address], [place], [address], [facility] 4 20:48:33 Constipat ion 47916760 Active 2023 Holly Robles MD [address] [facility], [address], [place], [address], [facility] 4 21:45:11 Fracture of proximal end of femur 666977460 Active 2023 KIMBERLYN MERCEDES [address], [address], [place], [address], [facility] 4 10:10:21 Problem Notes None recorded. Procedures Surgical History Date Name Laterality Status Provider Name and Address Organization Details Recorded Time ligation of fallopian tube completed [address], [address], [place], [address], [facility] 01/28/2023 10:47:49 cholecystectomy completed [address], [address], [place], [address], [facility] 01/28/2023 10:47:57 Imaging Results None recorded. [...] DateTime 11/05/2024 172.72 cm KIMBERLYN MERCEDES [address] [place] [address], [address], [place], [address], [facility] 11/05/2024 14:20:16 Date Recorded Body height Body temperature Respiratory rate Heart rate Oxygen saturation Oxygen saturation in Arterial blood by Pulse oximetry Systolic blood pressure Diastolic blood pressure Provider Name and Address Organization Details Last Updated DateTime 4 172.72 cm 98 [degF] 18 /min 71 /min 96 % 96 % 122 mm[Hg] 72 mm[Hg] KIMBERLYN MERCEDES [address] [facility], [address], [place], [address], [facility] 5 10:39:20 Social History Question Answer Notes LastModified by Organization Details LastModified Time Tobacco Smoking Status Former Smoker every day, [address] pp[address], [address], [place], [address], [facility] 01/28/2023 10:48:58 Do You Have An [...] Do You Have A Medical Power Of Lead Janitor? Yes Information not available 07/20/2024 What Was [...] (COVID-19) vaccine, UNSPECIFIED 1 completed BALA Martinez [facility] [address] 01/28/2023 16:51:35 SARS-COV-2 (COVID-19) vaccine, UNSPECIFIED 1 completed Minnie Zaheer [facility] 01/28/2023 16:51:48 Tdap 5 completed Minnie Schwab [facility] 01/28/2023 16:52:09 influenza, unspecified formulation 1 completed Minnie Schwab [facility] 01/28/2023 16:52:33 pneumococcal conjugate PCV 7 6 completed Minnie Schwab [facility] 01/28/2023 16:53:01 pneumococcal polysaccharide PPV23 2 completed Minnie Schwab [facility] 01/28/2023 16:53:16 zoster recombinant 9 completed Minnie Schwab [facility] 01/28/2023 16:53:33 zoster live 2 completed Minnie Schwab [facility] 01/28/2023 16:53:50 Influenza, adjuvanted, quadrivalent, PF 2 completed Mily Gage [facility] 12/11/2023 11:33:48 Influenza, adjuvanted, quadrivalent, PF 3 completed Milynilda Garcíain [facility] 01/09/2024 11:17:44 Past Encounters Encounter ID Performer Location Encounter Start Date Encounter Closed Date Diagnosis/Indication Diagnosis SNOMED-CT Code Diagnosis ICD10 Code Diagnosis Note [id number] VANGIE [facility]oggshilpi [facility] [address] [place] [address] 01/28/2023 10:42:58 01/30/2023 14:52:45 Closed fracture of left patella 4730037323 7535139 S82.002D see HPI, s/p fallKnee immobilize r while OOBWBAT, PT/OT eval and treatmonit or pain control Hyperlipidemia 34072526 E78.5 lipitor 20 mg dailymonit or lipids outpt with PCP Essential hypertension 36743246 I10 cardizem 120 mg dailybenic ar 40-25 dailymonit or bps 136/78 today Gastroesop hageal reflux disease without esophagitis 250737456 K21.9 pepcid 20 mg BIDmonitor for reflux Chronic ob structive pulmonary disease 03632173 J44.9 combivent QIDmonitor resp statusenco urage smoking cessation Pulmonary emphysema 8743 3001 J43.9 see aboveencou rage cessation Depressive disorder 4535 0941 F32.A zoloft 100 mg dailymonit or mood, consult [facility] if needed Fall R29.6 fell after getting OOBminimiz e fall riskPT/OT eval and treat Silverio Broussard MD [facility] on [address] [place] [address] 01/29/2023 13:50:17 01/31/2023 09:49:56 Fracture of fibula 42945628 S82.402D follow ortho recs; working w pt/ot;has knee immobilize r per ortho;cons ider aspirin anticoagul ation if patient is immobilize d; Essential hypertension 98092546 I10 asymptomat ic; hemodynami alysia stable; good rate; clear lungs; good sats; follow; History of deep vein thrombosis 719624708 Z86.718 noted;afte r knee surgery 2000;she seems to be adequately mobilized at this pointconsi amelia aspirin; Asthma 312667335 J45.90 9 asymptomat ic; on combivent; Hypercholesterolemia 136 96524 E78.00 on statin; Depressive disorder 4138 6542 F32.A well compensate d; on sertraline Medication monitoring 39 5284283 Z51.81 [facility] / Olmesartan -Hydrochlo rothiazide 40/25 mg/d; cardizem CD 120 mg/d;pulm / combivent; endo / lipitor 20 mg/d;heme /gi / pepcid;gu /neuro / sertraline 100 mg/d; [id number] VANGIE [facility] on [address] [place] [address] 02/04/2023 09:11:52 02/06/2023 09:35:44 Closed fracture of left patella 1591467406 7539852 S82.002D see HPI, s/p fallKnee immobilize r while OOBWBAT, PT/OT to continue outpt with [facility] Hyperlipidemia 98565705 E78.5 lipitor 20 mg dailymonit or lipids outpt with PCP Essential hypertension 27206360 I10 cardizem 120 mg dailybenic ar 40-25 dailystabl e Gastroesop hageal reflux disease without esophagitis 855097118 K21.9 pepcid 20 mg BID Chronic ob structive pulmonary disease 86230291 J44.9 combivent QIDencoura ge smoking cessation Pulmonary emphysema 8743 3001 J43.9 see aboveencou rage cessation Depressive disorder 3548 9007 F32.A zoloft 100 mg daily Fall R29.6 minimize fall risk at homeremove scatter risk [id number] VANGIE ANGEL [address] [place] [address] 07/18/2024 09:09:20 07/21/2024 09:00:14 Hyperlipidemia 41507366 E78.5 lipitor 20 mg dailymonit or lipids outpt with PCP Essential hypertension 96035376 I10 cardizem 300 mg dailyavali de dailymonit or bps 136/78 today Gastroesop hageal reflux disease without esophagitis 693371844 K21.9 pepcid 20 mg BIDmonitor for reflux Chronic ob structive pulmonary disease 80556911 J44.9 combivent QID prnmonitor resp statusenco urage smoking cessation Pulmonary emphysema 8743 3001 J43.9 see aboveencou rage cessation Depressive disorder 8208 3927 F32.A zoloft 100 mg dailyvitam in d3 dailymonit or mood, consult [facility] if needed Fall R29.6 see HPIminimiz e fall riskPT/OT eval and treat Tobacco user 818060709 Z 72.0 hx of heavy tobacco use and recently stopped secondary to stay at short-term rehab. She has not requested any nicotine replacemen t therapy while here but that can be offered if need be. Hypercalcemia 90291741 E 83.52 elevated serum calcium levels dating back to spring 2022.Mildl y elevated inpatient and do not appear to be causing her any symptomsHe r PTH was elevated suggesting primary hyperparat hyroidism. Patient should see endocrinol lise through [facility] after discharge from nursing home facility.d tr aware to work on this Fracture o f proximal end of femur 220108598 S72.001A s/p pinningWBA T, PT/OT eval and treatmonit or pain controloxy codone 5 mg q 4 hours prnapap 650 mg q 6 hours prnlovenox 40 mg sq x 30 days [id number] MD GAMAL Mac [address] [place] [address] 07/20/2024 19:49:57 07/27/2024 09:02:40 Fracture of proximal end of femur 884247540 S72.021D Recovering as expected.C ontinue oxycodone 5 mg q 4 hrs prn and APAP 650 mg q 6 hrs prnContinu e lovenox 40 mg sq x 30 days for DVT prophylaxi s.Needs PT/OT for strengthen ing, balance, gait training, safety and function.C ontinue fall precaution s.Monitor for safety.F/U with ortho on 07/30 as planned. Essential hypertension 35832281 I10 In good control on diltiazem 300 mg qd and irbesartan /HCTZ 150/12.5 mgMonitor BP and labs. Hyperlipidemia 71547622 E78.49 Continue atorvastat in 20 mg qdMonitor labs as outpt. Gastroesop hageal reflux disease without esophagitis 128290406 K21.9 No current sxs.Contin ue famotidine 20 mg BIDMonitor for GI sxs. Chronic ob structive pulmonary disease 58447285 J43.8 No current sxs.Contin ue combivent 1 puff q 4 hrs prnMonitor resp statusCont inue to encourage smoking cessation Depressive disorder 3548 9007 F33.8 Continue sertraline 100 mg qdMood good today.Bridgett tor mood.Consu lt psych prn Fall R29.6 PT/OT as above.Cont inue fall precaution s.Monitor for safety. 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 Has not smoked since in hospital/r ehab. Hypercalcemia 10875134 E 83.52 Probable primary hyperparat hyroidism. To f/u with endo outpt.Bridgett tor Ca+ levels. History of thrombocytopenia 6201602045 9108 Z86.2 Dropped post-op inpt, now back to nl.Monitor labs. Constipation 32660242 K5 9.03 Will give MOM tonight and start miralax 17 gms qd.Continu e prn medsMonito r bowel function. [id number] VANGIE YEUNG JEANNE [address] [place] [address] 07/23/2024 11:08:18 07/24/2024 12:29:48 Fracture of proximal end of femur 682733670 S72.001A s/p pinning- site healing wellWBAT, PT/OT eval and treatoxyco done 5 mg q 4 hours prn - still taking frequently apap 650 mg q 6 hours prnlovenox 40 mg sq x 30 days total fall R29.6 continue PT dailyrepor ts pain with movement but tolerable with oxy Tear of skin 397238688 T 14.8XXD add xeroform to wound bed of skin tear on left arm and cover with foamchange dressing dailyonce healed [place] [id number] VANGIE [place] [address] 07/27/2024 09:01:00 07/29/2024 08:25:43 Fracture of proximal end of femur 441910990 S72.001A s/p pinning- site healing wellWBAT, PT/OT [...] working with physical therapy Tear of skin 866426650 T 14.8XXD add xeroform to wound bed of skin tear on left arm and cover with foamContin ue to change dressing dailyonce healed [place] [id number] [place] [address] 07/29/2024 11:12:02 07/30/2024 11:51:48 COVID-19 275158974 U07.1 tested posstable on RA, no ssbaseline cough and wheezing w/ h/o COPDpaxlov id not indicated at this timemainta in precaution sretest per protocolmo nitor VS and resp. status [id number] VANGIE ANGEL [address] [place] [address] 08/03/2024 09:12:48 08/04/2024 12:59:14 COVID-19 402733670 U07.1 Recoveredm onitor VS and resp. status Fracture o f proximal end of femur 511626332 S72.001A s/p pinning- site healing wellContin ue [...] drainage, color, and odor. Tear of skin 519685804 T 14.8XXD add xeroform to wound bed of skin tear on left arm and cover with foamContin ue to change dressing daily [id number] VANGIE ANGEL [address] [place] [address] 08/06/2024 10:51:39 08/07/2024 13:04:19 COVID-19 993269322 U07.1 Recovered Fracture o f proximal end of femur 160269802 S72.001A s/p pinning- site healing wellContin ue [...] drainage, color, and odor. Tear of skin 729423674 T 14.8XXD healing Fall R29.6 continue PT daily Essential hypertension 88206263 I10 cardizem 300 mg dailyavali de dailymonit or bps Hyperlipidemia 03011007 E78.5 lipitor 20 mg dailymonit or lipids outpt with PCP Gastroesop hageal reflux disease without esophagitis 494646165 K21.9 pepcid 20 mg BIDmonitor for reflux none noted Chronic ob structive pulmonary disease 44612210 J44.9 combivent QID prnmonitor resp statusenco urage smoking cessation Pulmonary emphysema 8743 3001 J43.9 see aboveencou rage cessation Depressive disorder 3548 9007 F32.A zoloft 100 mg dailyvitam in d3 dailymonit or mood, consult [facility] if needed [id number] [place] [address] 08/11/2024 09:55:34 08/12/2024 11:44:33 Fracture of proximal end of femur 178069945 S72.001A s/p pinning, site healedorde r placed to remove tata todayConti nue WBAT, PT/OTConti nue oxycodone 5 mg q 4 hours prn- using randomlyCo ntinue apap 650 mg q 6 hours prnlovenox 40 mg sq x 30 days total to end 08/18 Edema of l ower extremity 506702077 R60.0 consider lasix dailyadd cbc bmp bnp tomorrowel 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 Patient should see endocrinol lise through [facility] after discharge from nursing home facility.1 1.8 corrected [id number] [place] [address] 08/19/2024 10:32:29 08/20/2024 13:56:24 Dizziness 094939928 R42 add cbc and bmp tomorrowen courage PO fluidscons ider IVF if neededmoni tor bps [id number] VANGIE ANGEL [address] [place] [address] 08/28/2024 09:55:39 08/31/2024 14:13:31 Dizziness 419703545 R42 resolved Edema of l ower extremity 742279727 R60.0 BNP in range for patientace wraps daily, off qhs Hypercalcemia 11235294 E 83.52 elevated serum calcium levels dating back to spring 2022.Mildl y elevated inpatient and do not appear to be causing her any symptomsHe r PTH was elevated suggesting primary hyperparat hyroidism. Patient should see endocrinol ogy through [facility] after discharge from nursing home facility.1 1.8 corrected Fracture o f proximal end of femur 602894559 S72.001A s/p pinning, site healedDC oxycodone 5 mg q 4 hours prn-not usingConti nue apap 650 mg q 6 hours prn COVID-19 138962607 U07.1 Recovered Essential hypertension 93322917 I10 cardizem 300 mg dailyavali de daily Hyperlipidemia 76179201 E78.5 lipitor 20 mg dailymonit or lipids outpt with PCP Gastroesop hageal reflux disease without esophagitis 348083952 K21.9 pepcid 20 mg BID Chronic ob structive pulmonary disease 65818280 J44.9 combivent QID prnencoura ge smoking cessation Pulmonary emphysema 8743 3001 J43.9 see aboveencou rage cessation Depressive disorder 9348 9007 F32.A zoloft 100 mg dailyvitam in d3 daily [id number] [facility] [address] [place] [address] [place] [address] 09/07/2024 07:41:45 09/08/2024 13:21:36 Closed fracture of hip 006187000 S72.001A s/p ORIFcontin ue lovenox 40 mg daily/dvt ppx for until 10/06conti nue tylenol and oxycodone prnPT/OT eval and TXfollow up with ortho in 2 weeksStapl es covered with dressing intact - not removed Essential hypertension 30361750 I10 meds held in acute care due to soft BPparamete rs to hold for SBP < 120continu e cardizem 300 mg Depressive disorder 3548 9007 F32.A Zoloft 100 mg daily Hypercalcemia 21181537 E 83.52 elevated serum calcium levels dating back to spring 2022.Mildl y elevated inpatient and do not appear to be causing her any symptomsHe r PTH was elevated suggesting primary hyperparat hyroidism. Patient should see endocrinol lise through [facility] after discharge from nursing home facility.1 1.8 corrected Anemia fol lowing acute postoperative blood loss 1193960058 1805652 D62 surgery relatedhgb fell from 11.1 to 8.7did not require transfusio nmonitor hgb Hyperlipidemia 70878823 E78.5 lipitor 20 mg dailymonit or lipids outpt with PCP Gastroesop hageal reflux disease without esophagitis 521449432 K21.9 pepcid 20 mg BID Chronic ob structive pulmonary disease 64021417 J44.9 combivent QID prnencoura ge smoking cessation Asthma 919981483 J45.90 9 asymptomat ic; on combivent; History of deep vein thrombosis 285858206 Z86.718 after knee surgery 2000prior to fall not on anticoag due to active mobilityno w on lovenoxcon 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 adding asa when lovenox is d/c Fall R29.6 PT/OTmaint ain safety Osteoarthritis 394114003 M19.90 continue tylenol prn [id number] Timur Beebe MD [address] [address] 09/08/2024 13:34:28 09/09/2024 12:17:01 Closed fracture of hip 997926048 S72.001A see HPIright hip fx s/p ORIFfollow ortho recs and update with concernsmo nitor for pain controlPT OT eval and treatloven ox for EVT prophylaxi s Essential hypertension 85561507 I10 cardizem 300 mg qdmonitor bp and need to titrate Depressive disorder 3548 9007 F33.8 zoloft 100 mg qdcontinue dmonitor mood Anemia fol lowing acute postoperative blood loss 2507548950 5647547 D62 no transfusio n in hospitalre peat cbc orderediro n studies prn Hyperlipidemia 04625536 E78.2 lipitor 20 mg qdcontinue d Gastroesop hageal reflux disease without esophagitis 137527969 K21.9 famotidine 20 mg bidmonitor for sx relief Chronic ob structive pulmonary disease 49216223 J41.1 continue out patient medication smonitor albuterol utilizatio nencourage 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 Fall R29.6 PT OT eval and treatmonit or fall risk and need for increased support in community Osteoarthritis 932546081 M15.0 controlled with prn tylenoladd ed to PMH Hypokalemia 76762139 E87 .6 now on KCl 40 meqs qdrepeat bmpmonitor lytes [id number] KIMBERLYN MERCEDES [address] [place] [address] 09/17/2024 09:31:46 09/21/2024 12:45:13 Closed fracture of hip 843791118 S72.001A s/p ORIFcontin ue PT/OTconti nue lovenox 40 mg daily/dvt ppx for until 10/06conti nue tylenol and oxycodone prnfollow up with ortho in 2 weeks 09/21/24St aples covered with dressing intact - not removed Essential hypertension 85347498 I10 BP stablecont inue cardizem 300 mg Depressive disorder 3548 9007 F32.A Zoloft 100 mg dailymood is good Hyperlipidemia 49303158 E78.5 lipitor 20 mg dailymonit or lipids outpt with PCP Gastroesop hageal reflux disease without esophagitis 071174544 K21.9 pepcid 20 mg BID Chronic ob structive pulmonary disease 25238816 J44.9 NO Increase WOBcombive nt QID prnencoura ge smoking cessation Fall R29.6 PT/OTmaint ain safety Fracture o f proximal end of femur 407959010 S72.001A s/p left proximal femur IM nail fixation 4cont inue PT/OT [id number] KIMBERLYN MERCEDES [address] [place] [address] 09/21/2024 08:39:37 09/22/2024 11:47:04 Closed fracture of hip 851884949 S72.001A s/p ORIFcontin ue PT/OTconti nue lovenox 40 mg daily/dvt ppx for until 10/06conti nue tylenol and oxycodone prnfollow up with ortho in 2 weeks 09/21/24St aples covered with dressing intact - not removed Essential hypertension 76999679 I10 BP stablecont in cardizem 300 mg Chronic ob structive pulmonary disease 07468506 J44.9 NO Increase WOBcombive nt QID prnencoura ge smoking cessation [id number] KIMBERLYN MERCEDES [address] [place] [address] 10/01/2024 09:07:27 10/02/2024 10:23:31 Closed fracture of hip 088200671 S72.001A s/p ORIFcontin ue PT/OTconti nue lovenox 40 mg daily/dvt ppx for until 10/06con nue tylenol and oxycodone prnfollow up with ortho in 2 weeks 09/21/24St aples covered with dressing intact - not removed Essential hypertension 50664656 I10 BP stablecont in cardizem 300 mg Chronic ob structive pulmonary disease 30054484 J44.9 NO Increase WOBcombive nt QID prnencoura ge smoking cessation Acute hypokalemia 001833 03 E87.6 3.0not on diuretics , steroidsst art kcl 10 meq and recheck on 10/04 [id number] KIMBERLYN MERCEDES [address] [place] [address] 5 10/05/2024 11:16:11 10/06/2024 11:11:03 Closed fracture of hip 529587913 S72.001A s/p ORIFcontin ue PT/OTconti nue lovenox 40 mg daily/dvt ppx for until 10/06conti nue tylenol and oxycodone prnfollow up with ortho in 2 weeks 09/21/24in cision healed Essential hypertension 19792502 I10 BP stablecont inue cardizem 300 mg Chronic ob structive pulmonary disease 20232292 J44.9 NO Increase WOBcombive nt QID prnencoura ge smoking cessation Acute hypokalemia 824455 03 E87.6 repleted po with kcl 10 meq improvemen t now noted 3.7? is decrease possible related to recent abx use she was on ciprofloxa jaden for UTIwill monitor K Pain of ri ght knee region 8995373497 38910 M25.561 reports pain started after hip repairdesc ribed as cramping, pain with dorsiflexi onshe is concerned for ? blood clotthere is no swelling or point tenderness will ord ultrasound will order tramadol 50 mg Q6 prn until pending results. [id number] KIMBERLYN MERCEDES [address] [place] [address] 5 10/12/2024 12:11:08 10/15/2024 11:19:28 Closed fracture of hip 307569822 S72.001A s/p ORIFcontin ue PT/OTconti nue lovenox 40 mg daily/dvt ppx for until 10/06conti nue tylenol and oxycodone prnfollow up with ortho in 2 weeks 09/21/24in cision healed Essential hypertension 82581921 I10 BP stablecont inue cardizem 300 mg Chronic ob structive pulmonary disease 38260321 J44.9 NO Increase WOBcombive nt QID prnencoura ge smoking cessation Pain of ri ght knee region 9776713956 25795 M25.561 see hpiimaging negative for DVTreports pain started after hip repairdesc ribed as cramping, pain with dorsiflexi onshe is concerned for ? blood clotthere is no swelling or point tenderness Hypercalcemia 02041628 E 83.52 today 12.7elevat ed serum calcium levels dating back to spring 2022.Mildl y elevated inpatient and do not appear to be causing her any symptomsHe r PTH was elevated suggesting primary hyperparat hyroidism. refer to endocrinol ogprakash through [facility] after discharge from nursing home facilitydi scussed with nursing to hold calcium and vit D for now [id number] KIMBERLYN MERCEDES [address] [place] [address]298 5 10/15/2024 08:36:48 10/16/2024 12:00:47 Closed fracture of hip 186790670 S72.001A s/p ORIFcontin ue PT/OTconti nue lovenox 40 mg daily/dvt ppx for until 10/06conti nue tylenol and oxycodone prnincisio n healed Essential hypertension 48220969 I10 BP stablecont inue cardizem 300 mg Chronic ob structive pulmonary disease 33750459 J44.9 NO Increase WOBcombive nt QID prnencoura ge smoking cessation Pain of ri ght knee region 2975673983 55682 M25.561 see hpiimaging negative for DVTreports pain started after hip repairdesc ribed as cramping, pain with dorsiflexi onshe is concerned for ? blood clotthere is no swelling or point tenderness Hypercalcemia 30858028 E 83.52 12: 12.7elevat ed serum calcium levels dating back to spring 2022.Mildl y elevated do not appear to be causing her any symptomsHe r PTH was elevated suggesting primary hyperparat hyroidism. refer to endocrinol [facility] through [facility] after discharge from nursing home facilitydi scussed with nursing to hold calcium and vit D for nowmonitor for associated sx [id number] KIMBERLYN MERCEDES [address] [facility] [place] [address] 10/19/2024 10:14:51 10/20/2024 14:17:10 Closed fracture of hip 036013760 S72.001A s/p ORIFcontin ue PT/OTconti nue tylenol and oxycodone prnincisio n healed Essential hypertension 76336073 I10 BP stablecont inue cardizem 300 mg Chronic ob structive pulmonary disease 42076813 J44.9 NO Increase WOBcombive nt QID prnencoura ge smoking cessation Pain of ri ght knee region 8483647866 64468 M25.561 see hpiimaging negative for DVTreports pain started after hip repairdesc ribed as cramping, pain with dorsiflexi onshe is concerned for ? blood clotthere is no swelling or point tenderness Hypercalcemia 09264458 E 83.52 gpterjv32/ 9: 11.6elevat ed serum calcium levels dating back to spring 2022.Mildl y elevated do not appear to be causing her any symptomsHe r PTH was elevated suggesting primary hyperparat hyroidism. refer to endocrinol og through [facility] after discharge from nursing home facilitydi scussed with nursing to hold calcium and vit D for nowmonitor for associated sx Hypokalemia 42440780 E87 .6 see HPI/suspec t medication inducedK+ 3.2replace now with 20 meq for 1 dosewill add daily kcl 10 meq and continue to monitor. [id number] KIMBERLYN MERCEDES [address] [address] 5 10/22/2024 08:21:15 10/23/2024 13:25:04 Closed fracture of hip 770977509 S72.001A s/p ORIFcontin ue PT/OT- progressin g slowlycont inue tylenol and oxycodone prnincisio n healed Essential hypertension 88119398 I10 BP stablecont inue cardizem 300 mg Chronic ob structive pulmonary disease 27836894 J44.9 NO Increase WOBcombive nt QID prnencoura ge smoking cessation Pain of ri ght knee region 2046989482 31888 M25.561 imaging negative for DVTthere is no swelling or point tenderness will schedule apap 975 mg TID, pain seems to be interferin g with therapy endurance. discussed with patient and nursing. Hypercalcemia 20030889 E 83.52 / 9: 11.6elevat ed serum calcium levels dating back to spring 2022.Mildl y elevated do not appear to be causing her any symptomsHe r PTH was elevated suggesting primary hyperparat hyroidism. refer to endocrinol og through [facility] after discharge from nursing home facilitydi scussed with nursing to hold calcium and vit D for nowmonitor for associated sx Hypokalemia 73792988 E87 .6 see HPI/suspec t medication inducedK+ 3.2replace now with 20 meq for 1 dosewill add daily kcl 10 meq and continue to monitor. [id number] KIMBERLYN MERCEDES [address] [address] 5 10/26/2024 10:36:56 10/27/2024 12:05:26 Closed fracture of hip 171889280 S72.001A s/p ORIFcontin ue PT/OT- progressin g slowlycont inue tylenol and oxycodone prnincisio n healed Chronic ob structive pulmonary disease 96386044 J44.9 NO Increase WOBcombive nt QID prnencoura ge smoking cessation Pain of ri ght knee region 5947152184 94125 M25.561 imaging negative for DVTthere is no swelling or point tenderness continue apap 975 mg TID Hypokalemia 91727942 E87 .6 see HPI/suspec t medication inducedK+ 3.8continu e kcl 10 meq daily.bridgett tor labs [id number] KIMBERLYN MERCEDES [address] [address] 11/02/2024 10:15:17 11/03/2024 09:53:07 Closed fracture of hip 718233553 S72.001A s/p ORIFcontin ue PT/OT- progressin g slowlycont inue tylenol and oxycodone prnincisio n healed Chronic ob structive pulmonary disease 76762651 J44.9 NO Increase WOBcombive nt QID prnencoura ge smoking cessation Dysuria 79060716 R30.0 patient room has strong urine odorUA / C&S pendingnur sing reports hygiene issues noted during straight cathincrea sed fluids encouraged . [id number] KIMBERLYN MERCEDES [address] [address] 11/05/2024 13:49:31 11/06/2024 12:22:28 Dysuria 83798196 R30.0 patient room has strong urine odornursin g reports hygiene issues noted during straight cathincrea sed fluids encouraged . Recurrent urinary tract infection 337114061 N39.0 see hpiC&S results shows sensitivit y to ceftriaxon ewill stop macrobid and start on ceftriaxon e 1 g qd for 3 daysdiscus sed with nursing [id number] KIMBERLYN MERCEDES [address] [address] 5 11/09/2024 13:20:09 11/18/2024 11:14:37 Recurrent urinary tract infection 926811204 N39.0 abx completedm onitor for reoccurenc ewater/ increased fluids encouraged [id number] KIMBERLYN MERCEDES [address] [facility] [place] [address] 12/10/2024 15:22:50 12/14/2024 16:02:52 Left sided abdominal pain 758412256 R10.9 patient states that she has had this pain in the past and it has been intermitte nt and ongoing, she does not recall if she has seen GIdiscusse d with patient and nursingche ck labs cbc, CMP,straig ht cath for UA with c/sxray KUBconside r referral to GI if labs are non specific Dizziness 819146660 R42 BP 160's (could be related to [...] Name 10/26/2024 2 [place] Anabela Gillette [id number] [facility] 10/26/2024 1 [place] [employer] Anabela J Gillette [id number] [facility] 11/02/2024 2 [place] Anabela Gillette [id number] [facility] 11/02/2024 1 [place] [employer] Anabela J Gillette [id number] [facility] 11/05/2024 2 [place] Anabela Gillette [id number] [facility] 11/05/2024 1 [place] [employer] Anabela J Gillette [id number] [facility] 11/09/2024 2 [place] Anabela Gillette [id number] [facility] 11/09/2024 1 [place] [employer] Anabela J Gillette [id number] [facility] 12/10/2024 2 [facility] Gil[facility] [id number] Anabela Gillette 12/10/2024 1 MEDICARE B-[place]: [facility] [employer] Anabela Gillette [id number] Anabela Gillette Notes Date Note Type Note [...] she stopped therapy early.. KIMBERLYN MERCEDES [address] [facility] [address], [address], [place], [address], [facility] 10/26/2024 14:47:58 11/02/2024 text/html This is a 74 yr old femal patient seen for acute rounding visit. Per nursing, this past weekend she reported dysuria, a straight cath for urine UA was ordered and completed today. Patient tells me that she has been having sx for about 4 day(frequency and pressure) she has been afebrile KIMBERLYN MERCEDES [address] [facility] [address], [address], [place], [address], [facility] 11/02/2024 12:41:41 11/05/2024 text/html This is a 74 yr old femal patient seen for acute rounding visit follow up for suspected UTI. Patient has been at her usually baseline in NAD, she has increased her fluid intake. She was started on macrobid on 11/03. C/S report showed UA is positive for proteus mirabilis with resistance to macrobid. KIMBERLYN MERCEDES [address] [facility] [address], [address], [place], [address], [facility] 11/05/2024 15:15:00 11/09/2024 text/html This is a 74 yr old femal patient seen for acute rounding visit. Patient is doing well, she is at her baseline in NAD. There sre no acute nursing concerns. She Kaye completed abx therapy and is not experiencing any UTI sx at this time. KIMBERLYN MERCEDES [address] [facility] [address], [address], [place], [address], [facility] 11/18/2024 10:47:49 12/10/2024 text/html Anabela is a [...] no tenderness or distention. KIMBERLYN MERCEDES [address] [facility] [address], [address], [place], [address], [facility] [employer] 12/10/2024 18:43:42 OBGyn Episode No OBEpisode recorded.
--- OUTSIDE RECORDS SUMMARY | 2024-12-28 06:28 | XMS_ITS | Continuity of Care Document ---
Author Organization [facility], [facility] Address [address] [place] [address] Care Team Providers Care Parachute Marker Name Role Phone NIKITA LIN Primary Care Provide r [facility] 2ND FLOOR OTHER [phone] Assessment No assessment recorded. Plan of Treatment [...] Address Organization Details Recorded Time Pulmonary emphysema 76974390 Active 2022 VANG[address] LORD [address], [address], [place], [address], [facility] [employer] 3 10:46:22 Osteoarth ritis 433238093 Active [address]22 [address]ANG[address] LORD [address], [address], [place], [address], [facility] [employer] 3 10:46:28 Asthma 544969285 Active 2022 [address]ANG[address] LORD [address], [address], [place], [address], [facility] 3 10:46:32 Cyst of breast 046289274 Completed 202209/07/2024 KIMBERLYN MERCEDES [address], [address], [place], [address], [facility] [employer] 4 20:44:27 Chronic obstructi ve pulmonary disease 19544727 Active [address] LORD [address], [address], [place], [address], [facility] 3 10:46:48 Obesity 500863630 Completed 202209/07/2024 KIMBERLYN MERCEDES [address] [facility], [address], [place], [address], [facility] 4 20:44:27 Depressiv e disorder 31078062 Active [address], [address], [place], [address], [facility] 3 10:47:08 Hyperlipi demia 76386337 Active [address], [address], [place], [address], [facility] 3 10:47:16 Polyp of colon 64442214 Completed 202209/07/2024 KIMBERLYN MERCEDES [address] [place] [address], [address], [place], [address], [facility] 4 20:44:27 History of deep vein thrombosi s 503743681 Active [address], [address], [place], [address], [facility] 3 10:47:37 Essential hypertens ion 46662164 Active [address], [address], [place], [address], [facility] 3 10:51:08 Closed fracture of left patella 987684783025 05912 Completed 202209/07/2024 KIMBERLYN MERCEDES [address] [facility], [address], [place], [address], [facility] 4 20:44:27 Gastroeso phageal reflux disease without esophagit is 766461572 Active [address], [address], [place], [address], [facility] 3 10:57:14 Fall Active 2022 VANGIE LORENZANA [address] [facility], [address], [place], [address], [facility] 3 11:02:17 Fracture of proximal end of femur 426545039 Completed 202309/07/2024 KIMBERLYN MERCEDES [address], [place], [address], [facility] 4 10:10:21 Tobacco user 391109526 Active 2023 VANGIE LORENZANA [address] [facility], [address], [place], [address], [facility] 4 15:12:34 Hypercalc emia 57165283 Completed 202309/07/2024 KIMBERLYN MERCEDES [address] [facility], [address], [place], [address], [facility] 4 20:44:27 History of thrombocy topenia 806094750094 08 Completed 202309/07/2024 KIMBERLYN MERCEDES [address] [facility], [address], [place], [address], [facility] 4 20:48:33 Constipat ion 43914854 Active 2023 Holly Robles MD [address] [facility], [address], [place], [address], [facility] 4 21:45:11 Fracture of proximal end of femur 285103925 Active 2023 KIMBERLYN MERCEDES [address] [facility], [address], [place], [address], [facility] 4 10:10:21 Problem Notes None recorded. Procedures Surgical History Date Name Laterality Status Provider Name and Address Organization Details Recorded Time ligation of fallopian tube completed VANGIE [address], [place], [address], [facility] 01/28/2023 10:47:49 cholecystectomy completed VANGIE [address] [place] [address], [address], [place], [address], [facility] 01/28/2023 10:47:57 Imaging Results None recorded. [...] every day, 1 ppd VANGIE LORD [address] [facility], [address], [place], [address], [facility] 01/28/2023 10:48:58 Do You Have An [...] Do You Have A Medical Power Of Product Delivery Specialist? Yes Information not available 07/20/2024 What Was [...] (COVID-19) vaccine, UNSPECIFIED 1 completed Minnie Schwab [facility] 01/28/2023 16:51:35 SARS-COV-2 (COVID-19) vaccine, UNSPECIFIED 1 completed Minnie Schwab [facility] 01/28/2023 16:51:48 Tdap 5 completed Minnie Schwab [facility] 01/28/2023 16:52:09 influenza, unspecified formulation 1 completed Minnie Schwab [facility] 01/28/2023 16:52:33 pneumococcal conjugate PCV 7 6 completed Minnie Schwab [facility] 01/28/2023 16:53:01 pneumococcal polysaccharide PPV23 2 completed Minnie Schwab [facility] 01/28/2023 16:53:16 zoster recombinant 9 completed Minnie Schwab [facility] 01/28/2023 16:53:33 zoster live 2 completed Minnie Schwab [facility] 01/28/2023 16:53:50 Influenza, adjuvanted, quadrivalent, PF 2 [facility] 12/11/2023 11:33:48 Influenza, adjuvanted, quadrivalent, PF 3 completed Mily Almonte [facility] 01/09/2024 11:17:44 Past Encounters Encounter ID Performer Location Encounter Start Date Encounter Closed Date Diagnosis/Indication Diagnosis SNOMED-CT Code Diagnosis ICD10 Code Diagnosis Note [id number] KIMBERLYN MERCEDES СВЕТЛАНА BL[address] [address] [place] [address] 11/09/2024 13:20:09 11/18/2024 11:14:37 Recurrent urinary tract infection 278060509 N39.0 abx completedm onitor for reoccurenc ewater/ increased fluids encouraged [id number] KIMBERLYN MERCEDES СВЕТЛАНА DA [address] [facility] [place] [address] 12/10/2024 15:22:50 12/14/2024 16:02:52 Left sided abdominal pain 981861426 R10.9 patient states that she has had this pain in the past and it has been intermitte nt and ongoing, she does not recall if she has seen GIdiscusse d with patient and nursingche ck labs cbc, CMP,straig ht cath for UA with c/sxray KUBconside r referral to GI if labs are non specific Dizziness 955843162 R42 BP 160's (could be related to pain)start meclizine 12.5 mg q 8 prnmonitor for resolution Health Concerns Section Related Observation LastModified by Organization Detai ls LastModified Time None Recorded Concern Status LastModified by Organization Details LastModified Time None Recorded Payers Encounter Date Sequence Insurance Name Policy Number Policy Porras Covered Member ID Porras Member ID Guarantor Name 12/10/2024 2 [place] [facility] Anabela Gillette [id number] Anabela 12/10/2024 1 [place] [employer] Anabela Gillette [id number] [facility] Notes Date Note Type Note Provider [...] no tenderness or distention. KIMBERLYN MERCEDES [address] [facility], [address], [place], [address], [facility] 12/10/2024 18:43:42 OBGyn Episode No OBEpisode recorded.
--- OUTSIDE RECORDS SUMMARY | 2024-12-28 06:28 | XMS_ITS | Data Portability ---
Author Organization [facility], , [facility] Address [address] [place] [address] Care Team Providers Care Laundry Folder Name Role Phone JUDE SNOWDEN Gore Maker CHHAYA SOSA Primary Care Provider [facility] Shirt Operator ROSY TRISTAN Urologist [facility] THER Assessment Encounter Date Assessment Date Assessment LastModified by Organization Details LastModified Time 11/13/2023 11/13/2023 73yo woman, with a history of thyroid nodules, hypertension, kindly referred by AUTOMOTIVE PARTS SPECIALIST Ian for primary hyperparathyroidism and question of [...] could seek a second opinion from another hawk missile system crewmember or a genetic consult. I think CASR [...] Modified Time Details Appointments None recorded. Lab urinalysi s, dipstick, auto 2023 024 [facility], [address] [place] [address], [address], 4 16:36:40 culture, urine 2023 024 [facility], [address] [place] [address], [address], 4 14:23:35 urinalysi s, dipstick, auto 2023 024 [facility], [address] [place] [address], [address], 4 15:32:30 Referral vascular surgeon referral 2023 024 [email or web address] Not available 4 08:33:52 pelvic floor therapy referral - 73 yo f w incontine nce 2023 024 [email or web address] [facility], [address], [place], [address], 4 15:37:34 Procedures None recorded. Surgeries None recorded. Imaging LDCT, chest, for lung cancer screening - last scan 11/07/23 (Nancy) wants [facility] as its closer, current smoker, 30+ pack year, 5'6 , 504lbsPle ase enroll this patient in the LDCT Lung Cancer Screening Program (for ordering, follow up and shared decision making) 2023 024 [email or web address] [facility], [address], [place], [address], 4 08:51:18 US, abdominal aorta - 73 yo f w htn, smoker, hx of aneurysm in the mid to distal portion of the aorta. 2023 024 [facility] (Imaging), [address], [place], [address], 4 13:10:01 Medication Orders Cipro 500 mg tablet 2023 024 [id number], [address], [place], [id number], 4 11:46:33 Nicotrol 10 mg inhalatio n cartridge 2023 024 [id number] [address] [place] [address] [id number], [address], [place], [id number], 5 13:11:10 Patient TargetsNo targets recorded. Patient Instructions Encounter Date Encounter Id Patient Instructions Last Modified By Organization Details Last Modified Time 04/23/2024 [id number] Follow up on 07/28/2024 for follow up visit. If any new or worsening concerns, contact the office. [email or web address] Not available 04/23/2024 13:22:56 Patient is seen and examined with the above student. Assessment and Plan formulated with the above student collaboratively with the patient. KIMBERLYN Negro Not available 04/23/2024 13:40:27 06/15/2024 [id number] PRE OPERATIVE MEDICAL EVALUATION : 1. No [...] w incontinence Referring Physician: Chhaya Sosa [facility], Encounter Date: 04/23/2024 Vascular Surgeon Referral fo r Aneurysm of infrarenal abdominal aorta Referring Physician: Chhaya Sosa [facility], Encounter Date: 06/15/2024 Results Created Date Observation Date Name Description Value Unit Range Abnormal Flag Note LastModifiedBy Organization Detail LastModifiedTime 10/22/2010/22/2023 PTH INTAC T PTH intact 178.6 pg/mL 9.6-66 .3 high Not Available [address], [address], 10/22/2023 14:24:37 10/22/20 23 10/22/2023 VITAM IN [...] er than 30 ng/mL . Not Available [address], [address], 10/22/2023 14:24:38 10/22/20 23 10/23/2023 RENAL PANEL glucose 109 mg/dL 70-100 high Not Available [address], [address], 10/23/2023 15:01:39 10/22/20 23 10/23/2023 RENAL PANEL BUN 12 mg/dL 7-18 Not Available [address], [address], 10/23/2023 15:01:39 10/22/20 23 10/23/2023 RENAL PANEL creatinine 0.9 mg/dL 0.8-1. 3 Not Available [address], [address], 10/23/2023 15:01:39 10/22/20 23 10/23/2023 RENAL PANEL B/C 13.3 ratio Not Available [address], [address], 10/23/2023 15:01:39 10/22/20 23 10/23/2023 RENAL PANEL [...] be used in pregn javier. Not Available [address], [address], 10/23/2023 15:01:39 10/22/20 23 10/23/2023 RENAL PANEL sodium 144 mmol/ L 136-14 5 Not Available [address], [address], 10/23/2023 15:01:39 10/22/20 23 10/23/2023 RENAL PANEL potassium 4.2 mmol/ L 3.5-5. 1 Not Available [address], [address], 10/23/2023 15:01:39 10/22/20 23 10/23/2023 RENAL PANEL chloride 104 mmol/ L 96-107 Not Available [address], [address], 10/23/2023 15:01:39 10/22/20 23 10/23/2023 RENAL PANEL anion gap 9.1 5.0-15 .0 Not Available [address], [address], 10/23/2023 15:01:39 10/22/20 23 10/23/2023 RENAL PANEL CO2 31 mmol/ L 21-32 Not Available [address], [address], 10/23/2023 15:01:39 10/22/20 23 10/23/2023 RENAL PANEL calcium 11.1 mg/dL 8.5-10 .3 high CWP=C onsis tent with previ ous. Not Available [address], [address], 10/23/2023 15:01:39 10/22/2010/23/2023 RENAL PANEL albumin 3.1 g/dL 3.4-5. 0 low Not Available [address], [address], 10/23/2023 15:01:39 10/22/20 23 10/23/2023 RENAL PANEL phosphorous 2.80 mg/dL 2.50-4 .90 Not Available [address], [address], 10/23/2023 15:01:39 10/22/20 23 10/24/2023 CALCI UM, 24 HOUR URINE (W/ CREAT ININE ) calcium/crea tinine ratio 146 mg/g_ creat 30-275 normal Not Available [facility] [address] [place] [address] [address], [place], [address], 10/24/2023 21:53:25 10/22/20 23 10/24/2023 CALCI UM, 24 HOUR URINE (W/ CREAT ININE ) calcium, 24 hour urine 107 mg/24 _h normal Refer ence Range 35-25 0 Low calci um diet 35-20 0 Not Available [facility] [address], [address], 10/24/2023 21:53:25 10/22/20 23 10/24/2023 CALCI UM, 24 HOUR URINE (W/ CREAT ININE ) creatinine, 24 hour urine 0.73 g/24_ h 0.50-2 .15 normal Not Available [facility] [address], [place], [address], 10/24/2023 21:53:25 11/19/19 24 11/19/2023 COMP. METAB OLIC PANEL glucose 99 mg/dL 70-100 Not Available [address], [address], 11/19/2023 13:51:51 11/19/19 24 11/19/2023 COMP. METAB OLIC PANEL BUN 17 mg/dL 7-18 Not Available [address], [address], 11/19/2023 13:51:51 11/19/19 24 11/19/2023 COMP. METAB OLIC PANEL creatinine 1.0 mg/dL 0.8-1. 3 Not Available [address], [address], 11/19/2023 13:51:51 11/19/19 24 11/19/2023 COMP. METAB OLIC PANEL B/C 17.0 ratio Not Available [address], [address], 11/19/2023 13:51:51 11/19/19 24 11/19/2023 COMP. METAB [...] be used in pregn javier. Not Available [address], [address], 11/19/2023 13:51:51 11/19/19 24 11/19/2023 COMP. METAB OLIC PANEL sodium 141 mmol/ L 136-14 5 Not Available [address], [address], 11/19/2023 13:51:51 11/19/19 24 11/19/2023 COMP. METAB OLIC PANEL potassium 3.9 mmol/ L 3.5-5. 1 Not Available [address], [address], 11/19/2023 13:51:51 11/19/19 24 11/19/2023 COMP. METAB OLIC PANEL chloride 101 mmol/ L 96-107 Not Available [address], [address], 11/19/2023 13:51:51 11/19/19 24 11/19/2023 COMP. METAB OLIC PANEL anion gap 7.3 5.0-15 .0 Not Available [address], [address], 11/19/2023 13:51:51 11/19/19 24 11/19/2023 COMP. METAB OLIC PANEL CO2 33 mmol/ L 21-32 high Not Available [address], [address], 11/19/2023 13:51:51 11/19/19 24 11/19/2023 COMP. METAB OLIC PANEL calcium 10.9 mg/dL 8.5-10 .3 high CWP=C onsis tent with previ ous. Not Available [address], [address], 11/19/2023 13:51:51 11/19/19 24 11/19/2023 COMP. METAB OLIC PANEL total protein 6.8 g/dL 6.4-8. 2 Not Available [address], [address], 11/19/2023 13:51:51 11/19/19 24 11/19/2023 COMP. METAB OLIC PANEL albumin 3.4 g/dL 3.4-5. 0 Not Available [address], [address], 11/19/2023 13:51:51 11/19/19 24 11/19/2023 COMP. METAB OLIC PANEL globulin 3.4 g/dL Not Available [address], [address], 11/19/2023 13:51:51 11/19/19 24 11/19/2023 COMP. METAB OLIC PANEL A/G 1.0 ratio 0.8-2. 0 Not Available [address], [address], 11/19/2023 13:51:51 11/19/19 24 11/19/2023 COMP. METAB OLIC PANEL total bilirubin 0.50 mg/dL 0.00-1 .00 Not Available [address], [address], 11/19/2023 13:51:51 11/19/19 24 11/19/2023 COMP. METAB OLIC PANEL AST 32 U/L 0-37 Not Available [address], [address], 11/19/2023 13:51:51 11/19/19 24 11/19/2023 COMP. METAB OLIC PANEL ALT 27 U/L 6-63 Not Available [address], [address], 11/19/2023 13:51:51 11/19/19 24 11/19/2023 COMP. METAB OLIC PANEL alk. phos. 70 U/L 50-136 Not Available [address], [address], 11/19/2023 13:51:51 11/19/19 24 11/19/2023 LIPID PANEL cholesterol 110 mg/dL <200 mg/dl Spike able 200-2 39 mg/dl Borde rline High >240 mg/dl High Not Available [address], [address], 11/19/2023 13:51:53 11/19/19 24 11/19/2023 LIPID PANEL triglyceride s 116 mg/dL <150 mg/dL Marlene l 150-1 99 mg/dL Borde rline High 200-4 99 mg/dL High >500 mg/dL Very High Not Available [address], [address], 11/19/2023 13:51:53 11/19/1911/19/2023 LIPID PANEL direct HDL 45 mg/dL <40 mg/dl - Major Risk for CHD >60 mg/dl - Negat abigail Risk for CHD Not Available [address], [address], 11/19/2023 13:51:53 11/19/1911/19/2023 DIREC T LDL direct [...] r is not marbin reddyy. Not Available [address], [address], 11/19/2023 13:51:54 04/23/20 24 04/23/2024 URINA LYSIS color DARK YELLOW yellow Not Available [address], [address], 04/23/2024 15:32:30 04/23/20 24 04/23/2024 URINA LYSIS clarity SLIGHT LY CLOUDY clear Not Available [address], [address], 04/23/2024 15:32:30 04/23/20 24 04/23/2024 URINA LYSIS glucose NEGATI VE negati ve Not Available [address], [address], 04/23/2024 15:32:30 04/23/20 24 04/23/2024 URINA LYSIS bilirubin 1+ negati ve abnormal Not Available [address], [address], 04/23/2024 15:32:30 04/23/20 24 04/23/2024 URINA LYSIS ketones TRACE negati ve abnormal Not Available [address], [address], 04/23/2024 15:32:30 04/23/20 24 04/23/2024 URINA LYSIS specific gravity 1.025 1.001- 1.035 Not Available [address], [address], 04/23/2024 15:32:30 04/23/20 24 04/23/2024 URINA LYSIS pH 5.5 5.0-8. 0 Not Available [address], [address], 04/23/2024 15:32:30 04/23/20 24 04/23/2024 URINA LYSIS protein 1+ negati ve abnormal Not Available [address], [address], 04/23/2024 15:32:30 04/23/20 24 04/23/2024 URINA LYSIS urobilinogen 0.2 E.U./D L <1.0 Not Available [address], [address], 04/23/2024 15:32:30 04/23/20 24 04/23/2024 URINA LYSIS nitrates POSITI VE negati ve abnormal Not Available [address], [address], 04/23/2024 15:32:30 04/23/20 24 04/23/2024 URINA LYSIS blood NEGATI VE negati ve Not Available [address], [address], 04/23/2024 15:32:30 04/23/20 24 04/23/2024 URINA LYSIS leukocytes 1+ negati ve abnormal Not Available [address], [address], 04/23/2024 15:32:30 04/23/20 24 04/23/2024 URINE , MICRO SCOPI C WBC 25-50 hpf 0-4/hp f Not Available [address], [address], 04/23/2024 16:05:00 04/23/20 24 04/23/2024 URINE , MICRO SCOPI C RBC 3-5 hpf 0-2/hp f Not Available [address], [address], 04/23/2024 16:05:00 04/23/20 24 04/23/2024 URINE , MICRO SCOPI C bacteria 2+ none seen Not Available [address], [address], 04/23/2024 16:05:00 04/23/20 24 04/23/2024 URINE , MICRO SCOPI C yeast NONE SEEN none seen Not Available [address], [address], 04/23/2024 16:05:00 04/23/20 24 04/23/2024 URINE , MICRO SCOPI C squamous epithelial cells 6 hpf 0-5 high Not Available [address], [address], 04/23/2024 16:05:00 04/23/20 24 04/23/2024 URINE , MICRO SCOPI C calcium oxalate crystals 3+ none seen Not Available [address], [address], 04/23/2024 16:05:00 04/23/20 24 04/23/2024 URINE , MICRO SCOPI C mucous NONE SEEN none seen Not Available [address], [address], 04/23/2024 16:05:00 04/23/20 24 04/27/2024 CULTU RE, URINE , ROUTI NE culture, urine, routine abnormal CULTU RE, URINE , ROUTI NE Micro Numbe r: [id number] Test Statu s: Final Speci men Sourc e: Urine Speci men Quali ty: Adequ ate Resul t: Great er than 100,0 00 CFU/m L of Esche jeannie a coli E.col i ----- ----- ----- - INT KATE AMOX/ CLAVU LANAT E S 4 AMPIC ILLIN R >=32 AMP/S ULBAC CHRISTENSEN I 16 CEFAZ JOSE ALFERDO NR <=4 2 CEFEP LENO S <=1 CEFTA ZIDIM E S <=1 [...] lexin and lorac arbef . Not Available [facility] [address] [place] [address] B, [place], [address], 04/27/2024 14:23:35 05/15/20 24 05/15/2024 URINA LYSIS color YELLOW yellow Not Available [address], [address], 05/15/2024 16:36:40 05/15/20 24 05/15/2024 URINA LYSIS clarity CLEAR clear Not Available [address], [address], 05/15/2024 16:36:40 05/15/20 24 05/15/2024 URINA LYSIS glucose NEGATI VE negati ve Not Available [address], [address], 05/15/2024 16:36:40 05/15/20 24 05/15/2024 URINA LYSIS bilirubin 1+ negati ve abnormal Not Available [address], [address], 05/15/2024 16:36:40 05/15/20 24 05/15/2024 URINA LYSIS ketones TRACE negati ve abnormal Not Available [address], [address], 05/15/2024 16:36:40 05/15/20 24 05/15/2024 URINA LYSIS specific gravity 1.025 1.001- 1.035 Not Available [address], [address], 05/15/2024 16:36:40 05/15/20 24 05/15/2024 URINA LYSIS pH 6.0 5.0-8. 0 Not Available [address], [address], 05/15/2024 16:36:40 05/15/20 24 05/15/2024 URINA LYSIS protein 1+ negati ve abnormal Not Available [address], [address], 05/15/2024 16:36:40 05/15/20 24 05/15/2024 URINA LYSIS urobilinogen 1.0 E.U./D L <1.0 abnormal Not Available [address], [address], 05/15/2024 16:36:40 05/15/20 24 05/15/2024 URINA LYSIS nitrates NEGATI VE negati ve Not Available [address], [address], 05/15/2024 16:36:40 05/15/20 24 05/15/2024 URINA LYSIS blood NEGATI VE negati ve Not Available [address], [address], 05/15/2024 16:36:40 05/15/20 24 05/15/2024 URINA LYSIS leukocytes TRACE negati ve abnormal Not Available [address], [address], 05/15/2024 16:36:40 05/15/20 24 05/15/2024 URINE , MICRO SCOPI C WBC 2-4 hpf 0-4/hp f Not Available [address], [address], 05/15/2024 17:02:35 05/15/20 24 05/15/2024 URINE , MICRO SCOPI C RBC 0-2 hpf 0-2/hp f Not Available [address], [address], 05/15/2024 17:02:35 05/15/20 24 05/15/2024 URINE , MICRO SCOPI C hyaline casts 1 lpf 0-2 Not Available [address], [address], 05/15/2024 17:02:35 05/15/20 24 05/15/2024 URINE , MICRO SCOPI C bacteria TRACE none seen Not Available [address], [address], 05/15/2024 17:02:35 05/15/20 24 05/15/2024 URINE , MICRO SCOPI C yeast NONE SEEN none seen Not Available [address], [address], 05/15/2024 17:02:35 05/15/20 24 05/15/2024 URINE , MICRO SCOPI C squamous epithelial cells 3 hpf 0-5 Not Available [address], [address], 05/15/2024 17:02:35 05/15/20 24 05/15/2024 URINE , MICRO SCOPI C mucous NONE SEEN none seen Not Available [facility] [address] [facility], [place], [address], 05/15/2024 17:02:35 10/23/20 23 10/23/2023 US, retro [...] cysts. Readin suman Physic brendon: [facility] (Imaging) [address], [place], [address], 10/24/2023 07:40:14 11/19/19 24 11/07/2023 LDCT, chest , for lung cance r scree suzie No observ ation record ed. [facility] [address] [place] [address], [address], 11/19/2023 10:17:36 11/19/19 24 11/19/2023 CT, chest No observ ation record ed. [facility] [address] [place] [address], [address], 12/03/2023 14:26:26 11/19/19 24 11/19/2023 CT, chest No observ ation record ed. [facility] Dept [address] [place], [address], 12/03/2023 14:26:27 04/30/20 24 04/30/2024 US, abdom [...] Readin g Physic brendon: Brad Bernal ms [facility] (Imaging) [address], [place], [address], 05/01/2024 09:17:50 Result Notes None recorded. Problems Name Problem SNOMED Code Status Onset Date Resolution Date Notes Provider Name and Address Organization Details Recorded Time Hyperten sive disorder 23917436 Completed 12/25/2016 Chhaya Sosa NP [address] [place] [address], [id number] , [facility] 3 13:27:23 Tobacco user 418314524 Active Started smoking at 16 ; LDCT DUE Chhaya Sosa NP [address] [place] [address], [address] , [facility] 3 12:50:21 Chronic obstruct abigail pulmonar y disease 38717840 Active Chhaya Sosa NP [address] [place] [address], , [facility] 3 13:27:23 Costal chondrit is 11892692 Active Chhaya Sosa NP [address] [place] [address], , [facility] 3 13:27:23 Shoulder pain [id number] Cali Sosa NP [address] [place] [address], , [facility] 3 13:27:23 Morbid obesity 876155642 Active Chhaya Sosa NP [address] [place] [address], , [facility] 3 13:27:23 Major depressi ve disorder 667643257 Active F32.9 = no QUENTIN Score. Please code severity or remissio n level for a QUENTIN Score. Chhaya Sosa NP [address] [place] [address], , [facility] 3 13:27:23 Hyperlip idemia 81282308 Cali Sosa NP [address] [place] [address], , [facility] 3 13:27:23 Anxiety 40430020 Cali Sosa NP [address] [place] [address], , [facility] 3 13:27:23 Unexplai gerardo weight loss 994701545 Cali Sosa NP [address] [place] [address], , [facility] 3 13:27:23 Benign essentia l hyperten janay 1320728 Cali Sosa NP [address] [place] [address], , [facility] 3 13:27:23 Dyspnea 832662508 Cali Sosa NP [address] [place] [address], , [facility] 3 13:27:23 Standard chest X-ray abnormal 935656237 Cali Sosa NP [address] [place] [address], [address] , [facility] 3 13:27:23 Hypercal cemia 49412044 Completed 201612/25/2016 Eunice Short NP [address] [place] [address], [address] , [facility] 7 13:16:19 Primary hyperpar athyroid ism 82254373 Active 2016 Chhaya Sosa NP [address] [place] [address], [address] , [facility] 3 13:27:23 Abdomina l aortic aneurysm 526976108 Active 05/2023 no change On ultrasou nd. 3cm on abd CT 11/2016. 3.7x3.7 cm on US 04/10/22 essentia lly stable from 10/03/21 (3.6x3.6 cm) Chhaya Sosa NP [address] [place] [address], , [facility] 3 20:31:55 Osteopen ia 422485290 Completed 201612/16/2019 Eunice Short NP [address] [place] [address], , [facility] 0 20:33:00 Knee pain Active 2016 Chhaya Sosa NP [address] [place] [address], , [facility] 3 13:27:23 Osteopor osis 91830678 Active 2019 Chhaya Sosa NP [address] [place] [address], , [facility] 3 13:27:23 Osteoart hritis of knee 071652489 Active 2020 Eunice Short NP [address] [place] [address], [address] , [facility] 1 18:32:43 Hyperten sive disorder 26989337 Active 2021 Chhaya Sosa NP [address] [place], [address] , [facility] 3 13:27:23 Vitamin D deficien cy 23160058 Active 2021 Chhaya Sosa NP [address] [place], [address] , [facility] 3 13:27:23 Adenomat ous polyp of colon 176271474 Active 2022 2020, repeat in 3 yrs Chhaya Sosa NP [address] [place], [address] , [facility] 3 16:46:35 Fracture of fibula 58677133 Active 01/31 left Chhaya Sosa NP [address] [place] [address], [address] , [facility] 3 10:21:52 Admissio n to snf facility Active 08/0407/15/2024 an did Open reductio n internal fixation fx intertro shelleyi c[facility] adm to [facility] for fx fibula Chhaya Sosa NP [address] [place] [address], [address] , [facility] 4 16:09:14 Fall Active 2023 [facility] D/C Demetrice Ringer null, [facility] 4 14:40:47 Intertro chanteri c fracture 830043193 Active 2023 [facility] D/C Demetrice Ringer null, [facility] 4 14:41:10 Fracture of femur 76255866 Active 2023 cdh d/c Demetrice Ringer null, [facility] 4 09:38:54 Problem Notes None recorded. Procedures Surgical History Date Name Laterality Status Provider Name and Address Organization Details Recorded Time 12/01/19 25 Smoking cessation counseling cancelled ROYA Vanessa [facility] 11/30/2024 14:27:11 12/01/19 25 Medicare Wellness Visit cancelled Sera Livingston Yoselin [facility] 11/30/2024 14:26:21 09/15/20 24 Post hospital/SNF follow-up/Trans itional Care cancelled Talwendiynug Dustin [facility] 09/15/2024 10:22:13 02/21/20 19 Smoking cessation counseling completed Staci Barahona [facility] 02/20/2019 10:19:13 11/13/19 19 Smoking cessation counseling completed Jessenia Reynoso RN, BSN [facility] 11/13/2018 11:08:20 11/13/19 19 Carbon Monoxide Testing completed Jessenia Reynoso RN, BSN [facility] 11/13/2018 11:08:20 05/06/20 18 Smoking cessation counseling completed Flora Samuel RN [facility] 05/06/2018 10:51:44 05/06/20 18 Medicare Wellness Visit completed Flora Samuel RN [facility] 05/06/2018 10:51:33 05/06/20 18 Carbon Monoxide Testing completed Flora Samuel RN [facility] 05/06/2018 10:51:44 05/06/20 18 Advanced Care Planning completed Eunice Short NP [address] [place] [address], [id number] 05/07/2018 21:10:04 09/27/20 17 Smoking cessation counseling completed Amelie Flood LPN [facility] 09/27/2017 15:44:31 09/27/20 17 Carbon Monoxide Testing completed Amelie Flood LPN [facility] 09/27/2017 15:44:31 08/13/20 17 Smoking cessation counseling completed Sera Livingston [facility] 08/13/2017 11:45:27 08/13/20 17 POC Urinalysis Testing completed Sera Livingston [facility] 08/13/2017 11:39:25 05/16/20 17 Smoking cessation counseling completed Nelly Burnette CMA [facility] 05/16/2017 13:26:24 05/16/20 17 Suture/staple Removal completed Eunice Short NP [address] [place], [address], [facility] 05/16/2017 14:01:29 04/29/20 17 Smoking cessation counseling completed Donna Gray [facility] 04/29/2017 12:04:30 04/29/20 17 Carbon Monoxide Testing completed Donna Gray [facility] 04/29/2017 12:04:30 04/12/20 17 Smoking cessation counseling completed Sirena Catalan [facility] 04/12/2017 08:33:57 04/12/20 17 Carbon Monoxide Testing completed Sirena Catalan [facility] 04/12/2017 08:45:15 03/25/20 17 Smoking cessation counseling completed Nelly Burnette [facility] 03/25/2017 11:14:27 03/25/20 17 Carbon Monoxide Testing completed Nelly Burnette [facility] 03/25/2017 11:19:34 03/12/20 17 [address]: Therapeutic Exercise completed Paige Mccarty, PT [address] [place], [address], [facility] 03/12/2017 22:19:10 03/11/20 17 Smoking cessation counseling completed Isabella Spain [facility] 03/11/2017 09:20:38 03/11/20 17 Medicare Wellness Visit completed Isabella Spain [facility] 03/11/2017 09:20:04 03/11/20 17 Carbon Monoxide Testing completed Isabella Spain [facility] 03/11/2017 09:33:13 03/11/20 17 Medicare Risk for Falls Screen completed Isabella Spain [facility] 03/11/2017 09:28:14 02/19/20 17 [address]23: Therapeutic Exercise completed Paige Mccarty, PT [address] [place], [address], [facility] 02/19/2017 07:58:08 02/09/20 17 Smoking cessation counseling completed KIMBERLYN Ramos [address] [place], [address], [facility] 02/08/2017 16:42:38 02/09/20 17 POC Urinalysis Testing completed Evelyn Raphaelkatharinejose antonio [facility] 02/08/2017 16:22:27 01/01/20 17 Smoking Cessation Counselling completed Paige Mccarty, PT [address] [place], [address], [facility] 01/01/2017 10:09:35 01/01/20 17 40581: PT Eval, Moderate Complexity completed Paige Mccarty, PT [address] [place], [address], [facility] 01/02/2017 21:17:15 12/25/19 17 Smoking cessation counseling completed Nelly Burnette [facility] 12/25/2016 16:10:51 12/25/19 17 Carbon Monoxide Testing completed Nelly Burnette [facility] 12/25/2016 16:17:37 08/07/20 16 Smoking cessation counseling completed Nelly Burnette [facility] 08/07/2016 15:35:08 08/07/20 16 Carbon Monoxide Testing completed Nelly Burnette [facility] 08/07/2016 15:42:39 08/07/20 16 POC Urinalysis Testing completed Nelly Burnette [facility] 08/15/2016 15:26:49 07/06/20 16 Smoking cessation counseling completed [facility] 07/06/2016 10:38:50 07/06/20 16 Carbon Monoxide Testing completed [facility] 07/06/2016 10:54:18 06/22/20 16 03665: PT Evaluation completed Paige Mccarty, PT [address] [place], [address], [facility] 06/23/2016 22:35:11 06/08/20 16 Smoking cessation counseling [facility] 06/08/2016 10:30:42 06/08/20 16 Carbon Monoxide Testing completed [facility] 06/08/2016 10:35:43 03/09/20 16 Smoking cessation counseling completed Nelly Burnette [facility] 03/09/2016 11:16:13 03/09/20 16 Medicare Wellness Visit completed Nelly Burnette [facility] 03/09/2016 11:15:14 03/09/20 16 Carbon Monoxide Testing completed Nelly Burnette [facility] 03/09/2016 11:30:10 03/09/20 16 Medicare Risk for Falls Screen completed Nelly Burnette [facility] 03/09/2016 11:30:34 07/28/20 15 Smoking cessation counseling completed Nelly Burnette [facility] 07/28/2015 11:00:21 03/07/20 15 Medicare Wellness Visit completed Jolly Baumann LPN [facility] 03/07/2015 14:58:35 02/02/20 15 Smoking cessation counseling completed Viviane Kebede [facility] 02/01/2015 11:51:54 Imaging Results Imaging Date Name Status LastModified by Organization Details LastModified Time 10/23/2023 US, retroperitoneum completed galo [facility] (Imaging) [address], [place], [address], 10/24/2023 07:40:14 11/07/2023 LDCT, chest, for lung cancer screening completed [address] [facility] [address] [place] [address], [id number], 11/19/2023 10:17:36 11/19/2023 CT, chest completed [facility] [address] [place] [address], [address], 12/03/2023 14:26:26 11/19/2023 CT, chest completed [facility] [address] [place] [address], [address], 12/03/2023 14:26:27 04/30/2024 US, abdominal aorta completed yas crockett [facility] (Imaging) [address] [place], [address], 05/01/2024 09:17:50 Procedure Notes None recorded. Medical [...] Last Updated DateTime 168.91 cm 37.9 kg/m2 220449. 7 g 81 /min 97 mm[Hg] 69 mm[Hg] Amy Bentley LPN [facility] 4 11:39:29 Date Recorded Body height Heart rate Systolic blood pressure Diastolic blood pressure Provider Name and Address Organization Details Last Updated DateTime 11/19/2023 168.91 cm 80 /min 114 mm[Hg] 78 mm[Hg] Flora Quijano , A [facility] 11/19/2023 09:28:48 Date Recorded Body height Systolic blood pressure Diastolic blood pressure Provider Name and Address Organization Details Last Updated DateTime 04/23/2024 168.91 cm 180 mm[Hg] 148 mm[Hg] Haley Sharma CMA [facility] 04/23/2024 11:34:08 Date Recorded Systolic blood pressure Diastolic blood pressure Provider Name and Address Organization Details Last Updated DateTime 04/23/2024 180 mm[Hg] 92 mm[Hg] Coreen Franks [facility] 04/23/2024 12:07:54 Date Recorded Systolic blood pressure Diastolic blood pressure Provider Name and Address Organization Details Last Updated DateTime 04/23/2024 168 mm[Hg] 90 mm[Hg] Chhaya Sosa, YAMILETH [address] [place], [address], [facility] 04/23/2024 13:41:34 Date Recorded Body height Heart rate Systolic blood pressure Diastolic blood pressure Provider Name and Address Organization Details Last Updated DateTime 05/15/2024 168.91 cm 86 /min 105 mm[Hg] 68 mm[Hg] Luis sanders [facility] 05/15/2024 13:56:54 Date Recorded Body temperature Provider Name a wy Address Organization Details Last Updated DateTime 05/15/2024 99 [degF] ADARSH FOY , FEED MANAGER [address] [place], [address] 05/15/2024 15:51:00 Date Recorded Body height Body mass index (BMI) Body weight Heart rate Systolic blood pressure Diastolic blood pressure Provider Name and Address Organization Details Last Updated DateTime 168.91 cm 38.8 kg/m2 003265. 54 g 88 /min 120 mm[Hg] 74 mm[Hg] Sera Mari user, [facility] 11:46:10 Date Recorded Systolic blood pressure Diastolic blood pressure Provider Name and Address Organization Details Last Updated DateTime 05/06/2024 127 mm[Hg] 68 mm[Hg] Margie [facility] 05/06/2024 16:02:42 Social History Question Answer Notes LastModified by Organizat ion Details LastModified Time Tobacco Smoking Status Current Every Day Smoker smokes less 1/2 ppd11-1- 10-09-23 less then 1/2 pack a day 11-13-24 6 cig a day Amy Bentley LPN [email or web address], [facility] 11/13/2023 11:37:21 Do You Have An Advance Directive? Yes Daughter Magno Castellon [phone] Information not available 03/08/2015 What Is Your Level Of Alcohol Consumption? None 04/12/17 Information not available 04/12/2017 What Is Your Level Of Caffeine Consumption? Moderate 2 Cups A Day Information not available 09/29/2021 What Type Of Diet Are You Following? REGULAR [email or web address] Information not available 09/06/2014 Which Illicit Or Recreational Drugs Have You Used? None 04/12/17 Information not available 04/12/2017 Education 12 [email or web address] Information no t available 09/06/2014 What Is Your Occupation? Disabled 2000 Due To Knee Arthritis Information not available 09/06/2014 Do You Use Insect Repellent Routinely? No Information not available 09/29/2021 Live Alone Or With Others? Alone [email or web address] Information not available 09/06/2014 Patient Has Health Care Proxy Signed And In Chart Yes Daughter Magno, Copy In Chart Information not available 09/06/2014 MOLST Form Signed And In Chart 02/08/2023 Information not available 03/05/2023 CCM Consent Discussion 03/12/2023 Information not available 03/14/2023 Marital Status [email or web address] Informatio n not available 09/06/2014 Mosquito Repellent Used Routinely No [email or web address] Information not available 09/06/2014 What Was The [...] available 09/06/2014 Are You Sexually Active? No [email or web address] Information not available 09/06/2014 Smoke Alarm In Home Yes [email or web address] Information not available 09/06/2014 Do You Have Smoke And Carbon Monoxide Detectors In Your Home? Yes Information not available 09/29/2021 At What Age Did You Start Smoking Tobacco? 16 [email or web address] Information not available 09/06/2014 Are You Passively Exposed To Smoke? Yes Information not available 09/29/2021 How Much Tobacco Do You Smoke? 0.5 PPD [email or web address] Information not available 05/28/2022 General Stress Level Medium [email or web address] Information not available 09/06/2014 Do You Use Sunscreen Routinely? No Information not available 09/06/2014 Do You Or [...] Medical History Condition Response Thyroid Disease Y Depression Y COPD Y RESPIRATORY Y Osteopenia Y Hyperlipidemia Y Hypertension Y Gynecological HistoryNo gynecological history recorded. Obstetrics History GPAL:G 0 P 0 0 0 0 Immunizations Vaccine Type Date Status Note Provider Nam e and Address Organization Details Recorded Time Pneumococcal conjugate PCV 13 6 completed Not Available [facility] 11/28/2019 02:29:50 influenza, unspecified formulation 4 completed Not Available [facility] 02/07/2023 18:15:23 pneumococcal polysaccharide PPV23 2 completed Not Available [facility] 02/07/2023 18:15:23 influenza, unspecified formulation 2 completed Not Available [facility] 02/07/2023 18:15:23 influenza, unspecified formulation 3 completed Not Available [facility] 02/07/2023 18:15:23 zoster live 2 completed Not Available [facility] 02/07/2023 18:15:23 influenza, unspecified formulation 5 completed Not Available [facility] 02/07/2023 18:15:23 Tdap 5 completed Not Available [facility] 02/07/2023 18:15:23 Pneumococcal conjugate PCV 13 6 completed Not Available [facility] 02/07/2023 18:15:23 influenza, unspecified formulation 6 completed Not Available [facility] 02/07/2023 18:15:23 pneumococcal polysaccharide PPV23 7 completed Not Available [facility] 02/07/2023 18:15:23 influenza, unspecified formulation 7 completed Not Available [facility] 02/07/2023 18:15:23 influenza, unspecified formulation 8 completed Not Available [facility] 02/07/2023 18:15:23 Influenza, split virus, quadrivalent, preservative 9 completed Not Available [facility] 02/07/2023 18:15:23 zoster recombinant 9 completed Not Available [facility] 02/07/2023 18:15:23 Influenza, split virus, quadrivalent, preservative 0 completed Not Available [facility] 02/07/2023 18:15:23 Influenza, high-dose, quadrivalent, PF 2 completed NANDINI Abdullahi [address] [place] [address], [address], [facility] 08/13/2022 14:53:00 COVID-19, mRNA, LNP-S, PF, 30 mcg/0.3 mL dose 1 completed Not Available [facility] 02/07/2023 18:15:23 COVID-19, mRNA, LNP-S, PF, 30 mcg/0.3 mL dose 1 completed Not Available [facility] 02/07/2023 18:15:23 Influenza, high-dose, quadrivalent, PF 3 completed Jude Snowden MD [address] [place] [address], [address], [facility] 07/31/2023 17:03:12 Influenza, high-dose, quadrivalent, PF 1 completed Not Available [facility] 02/07/2023 18:15:23 Past Encounters Encounter ID Performer Location Encounter Start Date Encounter Closed Date Diagnosis/Indication Diagnosis SNOMED-CT Code Diagnosis ICD10 Code Diagnosis Note [id number] NAMITA, [facility], OFFICE [address] [place] [phone] 09/06/2014 13:00:24 09/06/2014 14:33:47 Hypertensive disorder 03789015 Tobacco user 615407155 Chronic ob structive pulmonary disease 26121003 Costal chondritis 94900024 [id number] COLBY Caldera, [facility], OFFICE [address] [place] [phone] 6 09/27/2014 11:04:03 09/27/2014 11:58:24 Hypertensive disorder 36877392 Shoulder pain 15582553 [id number] OMI Johnson, [facility], OFFICE [address] [place] [phone] 6 10/11/2014 11:22:07 10/11/2014 13:51:32 Hypertensive disorder 90592758 Tobacco user 510834659 Shoulder pain 88513957 [id number] YAMILETH Christianson, [facility], OFFICE [address] [place] [address] 6 11/01/2014 10:59:51 11/01/2014 11:41:21 Hypertensive disorder 95270985 Shoulder pain 64936653 Tobacco user 798710358 [id number] OMI Clements, [facility], OFFICE [address] [place] [address] [phone] 6 12/06/2014 09:58:29 12/06/2014 10:57:34 Hypertensive disorder 84843165 Morbid obesity 997297562 Tobacco user 950690349 Chronic ob structive pulmonary disease 56628220 [id number] YAMILETH Christianson, [facility], OFFICE [address] [place] [address] [phone] 6 01/04/2015 13:51:17 01/04/2015 15:24:56 Hypertensive disorder 80764713 Tobacco user 479925286 Shoulder pain 37964344 [id number] Jolly Baumann LPN , [facility], OFFICE [address] [place] [phone] 6 02/01/2015 11:29:20 02/01/2015 12:34:46 Benign essential hypertension 1429350 Blood pressure at goal Tobacco user 510710320 Major depr essive disorder 641766221 Morbid obesity 407248418 [id number] Graciela BREAUX, [facility], OFFICE [address] [place] [id number] 6 03/07/2015 14:33:45 03/07/2015 15:38:53 Adult health examination 752338259 see Risk Assessment and Lifestyle Change Counseling section above Counseling 530394890 Administra tion of diphtheria, pertussis, and tetanus vaccine 219850923 Tobacco user 614921103 Shoulder pain 67587036 Administra tion of bacterial and viral vaccine 373917632 Morbid obesity 068669984 Major depr essive disorder 213100488 Hyperlipidemia 58512853 Lipids in normal range, but CVD risk 25% due to smoking and HTN. In addition is obese and sedentary lifestyle increasing risk further. Therefore could benefit from statin therapy. [id number] YAMILETH Christianson, [facility], OFFICE [address] [place] [address] [id number] 6 07/28/2015 10:37:43 07/28/2015 11:29:31 Lifestyle 115549267 Tobacco user 310822101 Anxiety 89215825 [id number] YAMILETH Christianson, [facility], OFFICE [address] [place] [phone] 6 09/07/2015 13:59:43 09/07/2015 14:45:35 Chronic obstructive pulmonary disease 48601397 J44.9 [id number] Eunice Short NP FP, [facility], OFFICE [address] [place] [address] [id number] 6 09/09/2015 14:41:26 09/09/2015 15:19:44 Benign essential hypertension 7794604 I10 Blood pressure at goal Mixed hyperlipidemia 267 627597 E78.2 Continue to work on diet and exercise as discussed Tobacco user 606956427 Z 72.0 Chronic ob structive pulmonary disease 64617699 J44.9 [id number] Eunice Short NP , [facility], OFFICE [address] [place] [address] [id number] 6 03/09/2016 10:55:03 03/09/2016 12:23:53 Morbid obesity 221309994 E66.01 Major depr essive disorder 836812245 F32.9 Chronic ob structive pulmonary disease 75473305 J44.9 Adult heal th examination 968565726 Z00.00 see Risk Assessment and Lifestyle Change Counseling section above Counseling 191709115 Z71 .9 Mixed hyperlipidemia 267 053784 E78.2 Cholestero l is at goal Continue to work on diet and exercise as discussed Nicotine dependence 5629 4008 Z87.891 Tobacco user 584623580 Z 72.0 Hyperlipidemia 63457446 E78.5 Active or passive immunization 665489409 Z23 Unexplaine d weight loss 007887476 R63.4 [id number] Eunice Short NP , [facility], OFFICE [address] [place] [address] [id number] 6 03/15/2016 15:00:37 03/15/2016 15:57:06 Benign essential hypertension 0996150 I10 Morbid obesity 890508821 E66.01 Dyspnea 873385787 R06.00 Tobacco user 228509053 Z 72.0 [id number] YAMILETH Christianson, [facility], OFFICE [address] [place] [address] [phone] 6 04/26/2016 11:27:30 04/26/2016 12:35:10 Acute upper respiratory infection 57531877 J06.9 Educated patient that URI is a [...] to resolve in 2-4 weeks. Acute bronchitis 6417498 2 J20.9 [id number] Eunice Short NP FP, [facility], OFFICE [address] [place] [address] [id number] 6 06/08/2016 10:25:28 06/08/2016 11:14:21 Benign essential hypertension 2328181 I10 Blood pressure at goal Cigarette smoker 0720191 7 F17.210 Tobacco user 845391593 Z 72.0 Major depr essive disorder 491101063 F32.9 Osteopenia 632811768 M85 .80 [id number] Paige Mccarty, PT Physical Therapy, [address] [address] 06/22/2016 15:00:50 06/25/2016 07:43:41 Knee pain 79800055 M25.569 Low back pain 164225741 M54.5 Abnormal gait 92586349 R 26.9 [id number] Eunice Short NP FP, [facility], OFFICE [address] [place] [address] 53520-658 6 07/06/2016 10:36:56 07/06/2016 11:12:26 Tobacco user 189838587 Z72.0 Cigarette smoker 9396134 7 F17.210 hopefully PA for Fredi will be approved Major depr essive disorder 124679362 F32.9 stable on sertraline Benign ess ential hypertension 9659001 I10 Blood pressure not at goal. Resume Benicar HCT and FU in 4-6 wks to recheck. Abdominal pain 35472548 R10.9 [id number] Nelly Burnette CMA , [facility], OFFICE [address] [place] [address] [id number] 6 08/07/2016 15:32:02 08/07/2016 16:51:27 Benign essential hypertension 7486641 I10 Blood pressure at goal, continue current meds. on 3 agents. Cigarette smoker 2807947 7 F17.210 Plans to start the Chantx next month Tobacco user 155825573 Z 72.0 Urinary tr act infectious disease 75628421 N39.0 Patient instructed to push fluids, to follow up for persistent or worsening symptoms or fever or back pain. [id number] Eunice Short NP , [facility], OFFICE [address] [place] [address] [phone] 6 09/10/2016 16:29:26 09/10/2016 17:04:55 Shoulder pain 07526801 M25.512 Benign ess ential hypertension 3033875 I10 Blood pressure at goal Tobacco user 987305965 Z 72.0 Abdominal pain 01037422 R10.9 FU GI as planned. [id number] Eunice Short NP FP, [facility], OFFICE [address] [place] [address] [phone] 6 12/25/2016 16:04:41 12/26/2016 12:46:08 Cigarette smoker 24765703 F17.210 Tobacco user 567688382 Z 72.0 Multifacto rial gait problem 555609040 R26.89 Multiple renal cysts 253 629131 N28.1 Abdominal aortic aneurysm without rupture 22221047 I71.4 [id number] Paige Mccarty, PT Physical Therapy, [address] [address] 01/01/2017 09:45:00 01/03/2017 08:02:33 Knee pain 73026167 M25.309 [id number] KIMBERLYN Ramos FP, [facility], OFFICE [address] [place] [address] [id number] 6 02/08/2017 16:21:33 02/11/2017 10:05:50 Urinary tract infectious disease 08745889 N39.0 -Bactrim as directed-c ulture pending-fl uids-follo w up if no improvemen t in 3 days-prope r whipping technique- cotton underwear Cigarette smoker 2498255 7 F17.210 -start using the patches-gu ms as needed Tobacco user 380148631 Z 72.0 [id number] Paige Mccarty, PT Physical Therapy, [address] 912[address] 6 02/18/2017 17:06:31 02/19/2017 09:47:16 Knee pain 93203638 M25.569 Low back pain 386124408 M54.5 Abnormal gait 61675525 R 26.9 [id number] Eunice Short NP FP, [facility], OFFICE [address] [place] [address] 54284-621 6 03/11/2017 09:17:31 03/11/2017 10:05:00 Adult health examination 173184821 Z00.00 see Risk Assessment and Lifestyle Change Counseling section above Counseling 750377174 Z71 .9 Cigarette smoker 5660810 7 F17.210 Tobacco user 938562374 Z 72.0 Benign ess ential hypertension 6253665 I10 Blood pressure NOT at goal. Mixed hyperlipidemia 267 820276 E78.2 continue atorvastat in. Primary hyperparathyroidism 16218169 E21.0 [id number] Paige Mccarty, PT Physical Therapy, [address] [address] 6 03/12/2017 16:24:31 03/13/2017 07:11:43 Low back pain 816973864 M54.5 Knee pain 55933956 M25.5 69 Abnormal gait 82465421 R 26.9 [id number] Eunice Short NP FP, [facility], OFFICE [address] [place] [address] [id number] 6 03/25/2017 11:08:57 03/25/2017 11:56:01 Benign essential hypertension 9970941 I10 Blood pressure at goal Cigarette smoker 7057320 7 F17.210 Tobacco user 312639131 Z 72.0 [id number] Jude Snowden MD Endocrino logy, [address] [address] 04/12/2017 08:30:36 04/12/2017 09:23:12 Cigarette smoker 79813442 F17.210 Tobacco user 369216409 Z 72.0 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 Replace mouthpiece and twist the top and bottom so that markings do not line up. Clean mouthpiece regularly with soap and water Primary hyperparathyroidism 34987010 E21.0 -labs and bone density 11/28, follow up Dr. Snowden 12/29 Vitamin D deficiency 347 20887 E55.9 -calcium tabs 2 times daily by mouth 315 mg - 250units d [id number] MD NAMITA Bowers, [facility], OFFICE [address] [place] [address] [id number] 6 04/29/2017 11:22:19 04/29/2017 12:49:35 Cigarette smoker 58982818 F17.210 Tobacco user 691165454 Z 72.0 Screening mammography 24 344626 Z12.31 Osteoarthr itis of knee 231547232 M17.0 Shoulder pain 03628602 M 25.497 [id number] YAMILETH Christianson, [facility], OFFICE [address] [place] [address] [id number] 6 05/16/2017 13:24:19 05/16/2017 15:09:41 Cigarette smoker 87123883 F17.210 Tobacco user 714634984 Z 72.0 Facial laceration 719122 008 S01.81XA Gastroesop hageal reflux disease 391467535 K21.9 Morbid obesity 302731406 E66.01 Knee pain 97718096 M25.5 69 Bilateral, worse on R. [id number] Wendy Hopson NP FP, [facility], OFFICE [address] [place] [address] 32632-583 6 08/13/2017 11:37:38 08/13/2017 14:13:52 Urinary tract infectious disease 50284589 N39.0 Patient instructed to push fluids, to follow up for persistent or worsening symptoms or fever or back pain. Cigarette smoker 8574657 7 F17.210 not ready to quit. has patch at home and will consider starting it Tobacco user 760707135 Z 72.0 [id number] YAMILETH Christianson, [facility], OFFICE [address] [place] [address] [id number] 6 09/27/2017 15:21:15 09/27/2017 16:18:53 Benign essential hypertension 9575155 I10 Blood pressure at goal Cigarette smoker 0647567 7 F17.210 Tobacco user 227364904 Z 72.0 Knee pain 94218512 M25.5 69 Bilateral, worse on R. Chronic ob structive pulmonary disease 29785093 J44.9 [id number] Eunice Short NP FP, [facility], OFFICE [address] [place] [address] 84758-917 6 05/06/2018 10:36:03 05/06/2018 11:50:31 Adult health examination 436681688 Z00.00 see Risk Assessment and Lifestyle Change Counseling section above Counseling 292459771 Z71 .9 Depression screening 171 736423 Z13.89 depression screening tool administer ed, entered into emr, scored and discussed, time greater than 7.5 minutes Advance di rective discussed with patient 496194660 Z71.89 Cigarette smoker 6165813 7 F17.210 Tobacco user 289944362 Z 72.0 Hyperlipidemia 11442574 E78.5 Benign ess ential hypertension 3671716 I10 Blood pressure at goal Primary hyperparathyroidism 87805471 E21.0 [id number] Eunice Short NP , [facility], OFFICE [address] [place] [address] 63253-740 6 11/13/2018 11:05:40 11/13/2018 11:44:52 Benign essential hypertension 0492312 I10 Blood pressure at goal Cigarette smoker 6403288 7 F17.210 Tobacco user 864751150 Z 72.0 Candidal intertrigo 2661 42424 B37.2 Chronic ob structive pulmonary disease 19062036 J44.9 Morbid obesity 733073159 E66.01 Primary hyperparathyroidism 16917872 E21.0 Major depr essive disorder 386387753 F32.9 stable on sertraline [id number] Jake Jimenez PA-C , [facility], OFFICE [address] [place] [address] 62140-686 6 02/20/2019 10:16:21 02/20/2019 13:33:48 Cigarette smoker 42081439 F17.210 Discussed and encourage smoking cessation. Patient contemplat ing but not ready. Encourage follow up if needing assistance with this. Abdominal aortic aneurysm without rupture 42244289 I71.4 NO abdominal pain has had up to date imaging. Will contact us if any issues. Intramuscu lar contusion 635301161 T14.8XXA Refer to discussion section for complete summary of visit. [id number] Eunice Short NP , [facility], OFFICE [address] [place] [address] 06/04/2019 11:08:40 06/04/2019 12:13:47 Adult health examination 553332578 Z00.00 see Risk Assessment and Lifestyle Change Counseling section above Counseling 749038415 Z71 .9 Advance di rective discussed with patient 059258782 Z71.89 Mixed hyperlipidemia 267 085790 E78.2 continue atorvastat in. Cigarette smoker 4097753 7 F17.210 Tobacco user 561289422 Z 72.0 Urinary tr act infectious disease 95868142 N39.0 Patient instructed to push fluids, to follow up for persistent or worsening symptoms or fever or back pain. Screening mammography 24 653461 Z12.31 Benign ess ential hypertension 0777312 I10 Blood pressure at goal [id number] Vicky Avendaño PA-C , [facility], OFF[address] [place] [address] 06/19/2019 17:07:14 06/24/2019 15:07:53 Urinary tract infectious disease 75450885 N39.0 - starting new antibiotic and sending for culture, minimal improvemen t with macrobid- Patient instructed to push fluids, to follow up for persistent or worsening symptoms or fever or back pain. Cigarette smoker 3649198 7 F17.210 - not ready to quit cigars Tobacco user 376733335 Z 72.0 [id number] Eunice Short NP , [facility], [address] [place] [address] 12/16/2019 15:29:54 12/18/2019 14:21:58 Essential hypertension 70796619 I10 Mixed hyperlipidemia 267 724419 E78.2 Cholestero l is at goal Cholestero l is not at goal Continue to work on diet and exercise as discussed Cigarette smoker 8629019 7 F17.210 Tobacco user 036458526 Z 72.0 Poor balance 068594713 R 27.8 Osteoporosis 03325618 M8 1.0 BMD test 05/2018 Chronic ob structive pulmonary disease 39777453 J44.9 Morbid obesity 959638574 E66.01 Primary hyperparathyroidism 01410329 E21.0 [id number] Eunice Short NP , [facility], OFFICE [address] [place] [address] 06/09/2020 11:18:53 06/10/2020 15:13:48 Major depressive disorder 578148254 F32.9 stable on sertraline , see PHQ9 Adult heal th examination 331213227 Z00.00 see Risk Assessment and Lifestyle Change Counseling section above Counseling 483066049 Z71 .9 including cardiovasc ular risk reduction counseling Depression screening 171 977191 Z13.89 depression screening tool administer ed, entered into emr, scored and discussed, time greater than 7.5 minutes. Negative screening reviewed with patient. Screening for alcohol abuse 566031042 Z13.39 no alcohol at all Benign ess ential hypertension 2338482 I10 Hyperlipidemia 18191433 E78.5 Anxiety 87977777 F41.9 Essential hypertension 88115560 I10 Mixed hyperlipidemia 267 686981 E78.2 on atorvastat in Cigarette smoker 9254268 7 F17.210 Tobacco user 499845963 Z 72.0 Tinea corporis 04921099 B35.4 [id number] Pino Ureña MD , [facility], OFFICE [address] [place] [address] 04/18/2020 14:44:16 04/19/2020 09:35:28 Urinary tract infectious disease 05134333 N39.0 Patient instructed to push fluids, to follow up for persistent or worsening symptoms or fever or back pain. Use the antibiotic . [id number] Vicky Avendaño PA-C , [facility], OFFICE [address] [place] [address] 10/21/2020 11:57:39 10/21/2020 15:23:14 Cigarette smoker 16222062 F17.210 -intereste d in quitting -limited success in the past with patches and gum/lozeng e -recommend nicotrol inhaler, patient expresses interest, advised about cost/unkno wn insurance coverage Injury of hand 849560161 S69.91XA -acute injury of right hand secondary to fall -will xray -advised RICE, NSAIDS/tyl enol for pain relief Injury of knee 912310501 S89.92XA -acute injury of left knee secondary to fall -will xray -advised RICE, NSAIDs/tyl enol for pain relief Injury of nose 33546878 S09.92XA -acute injury of nose secondary to fall -low suspicion for fracture of nasal bones, patient reports structure of nose does not appear changed -will xray -advised ice, NSAIDs/tyl enol for pain relief -return precaution s reviewed [id number] Vicky Avendaño PA-C FP, [facility], OFFICE [address] [place] [address] 10/26/2020 12:05:06 10/27/2020 15:44:13 Injury of hand 505541970 S69.91XA -acute injury of right hand secondary to fall, subsequent encounter -x-ray showed no evidence of fracture, reviewed with pt -advised RICE and tylenol for pain relief Injury of knee 186376098 S89.92XA -acute injury of left knee secondary to fall, subsequent encounter -x-ray showed no evidence of fracture, reviewed with pt -advised RICE and tylenol for pain relief Injury of nose 35924969 S09.92XA -acute injury of nose secondary to fall, subsequent encounter -x-ray showed non-displa florencia fracture, no cosmetic changes, reviewed with pt -advised ice and tylenol for pain relief -return precaution s reviewed [id number] Eunice Short NP FP, [facility], OFFICE [address] [place] [address] 01/19/2021 10:45:26 01/20/2021 14:27:22 Benign essential hypertension 5870759 I10 Morbid obesity 645795553 E66.01 Cigarette smoker 6916815 7 F17.210 Tobacco user 163907192 Z 72.0 Primary hyperparathyroidism 24404223 E21.0 Will check calcium q 6months. Chronic ob structive pulmonary disease 51233483 J44.9 At high risk for fall 45 55773424 83864605 Z91.89 Has fall alarm, power chair, wheelchair for in home use and walker. [id number] Wendy Hopson NP FP, [facility], OFFICE [address] [place] [address] 02/24/2021 14:22:54 02/27/2021 15:49:47 Backache 036488762 M54.9 left sided back ache x5 days. [...] phone. no distress or fever Cigarette smoker 0375901 7 F17.210 not ready to quit. has patch at home and will consider starting it Tobacco user 546710827 Z 72.0 [id number] Chhaya Sosa NP FP, [facility], OFFICE [address] [place] [address] 03/02/2021 17:10:00 03/06/2021 16:06:09 Tobacco user 542730243 Z72.0 Abdominal pain 94625079 R10.9 -reassuran ce as the pain seems to be musculoske letal-tyle nol 1000 mg every 8 hours as needed-alexia l with any worsening pain or if you want to do PT [id number] ARLENE MENENDEZ MD , [facility], OFFICE [address] [place] [phone] 09/29/2021 13:09:22 09/29/2021 14:07:17 Adult health examination 027446702 Z00.00 see Risk Assessment and Lifestyle Change Counseling section above Counseling 597892002 Z71 .9 including cardiovasc ular risk reduction counseling Depression screening 171 091731 Z13.31 depression screening tool administer ed, entered into emr, scored and discussed, time greater than 7.5 minutes Screening for alcohol abuse 848934705 Z13.39 no alcohol at all Anxiety 19993958 F41.9 controlled , continue meds Benign ess ential hypertension 7549981 I10 Chronic ob structive pulmonary disease 78710149 J44.9 Discussed smoking cessation x 3 m., not ready to quit at this time Morbid obesity 212500222 E66.01 discussed portion control. pt not able to exercise meaningful ly due to shortness of breath and knee pain with weight bearing. Osteoporosis 93759927 M8 1.0 BMD test 05/2018 - just had BMD couple of weeks ago at [facility], awaiting results. Tobacco user 451898355 Z 72.0 see above Essential hypertension 48236580 I10 continue current regimen Mixed hyperlipidemia 267 727799 E78.2 Cholestero l is at goalContin ue to work on diet and exercise as discussed Cigarette smoker 9461414 7 F17.210 Major depr essive disorder 359003970 F32.0 Abdominal aortic aneurysm without rupture 32645635 I77.811 recheck abd aorta, small ectasia 3 cm on last US, I can't find CT results. [id number] Eunice Short NP , [facility], [address] [place] [address] 09/07/2021 14:42:55 09/07/2021 15:50:48 Hyperlipidemia 39840255 E78.5 Essential hypertension 37304946 I10 Tobacco user 181324652 Z 72.0 > 30 pack yr history, Yrly LDCT screening for lung cancer - last done 10/2020 Primary hyperparathyroidism 25433407 E21.0 Will check calcium q 6months. Osteoporosis 17347607 M8 1.0 BMD test 05/2018 Chronic ob structive pulmonary disease 95844768 J44.9 Major depr essive disorder 598539094 F32.9 stable on sertraline , see PHQ9 Benign ess ential hypertension 3530473 I10 [id number] ARLENE MENENDEZ MD , [facility], [address] [place] [address] 04/06/2022 14:18:57 04/06/2022 15:33:08 Morbid obesity 154023132 E66.01 discussed portion control. pt not able to exercise meaningful ly due to shortness of breath and knee pain with weight bearing.Di scussed Harley Behaviors for Weight Loss: - Track intake using food diary - may use trip.meP al or written journal - Measure out [...] , Relevant, and Time-sensi tive) Primary hyperparathyroidism 65898937 E21.0 did not want to see endocrinol ogist, but since she has worsening osteoporos is, to reduce risk of fracture, I recommend seeing Dr. Snowden. She now agrees Major depr essive disorder 171912634 F32.0 controlled on sertraline Abdominal aortic aneurysm without rupture 12355279 I77.811 latest 09/2021 3.6 cm increased from 3 cm. Repeat now. Chronic ob structive pulmonary disease 56102016 J44.9 Discussed smoking cessation x 3 m., not ready to quit at this timecontin ue LDCT yearly at [facility] Essential hypertension 73772995 I10 continue current regimen Tobacco user 256957783 Z 72.0 see above Osteoporosis 02531719 M8 1.8 worsening. Check PTH and refer to endocrinol ogist [id number] NANDINI Abdullahi, [facility], [address] [place] [address] 05/29/2022 17:36:30 05/31/2022 11:36:05 Urinary tract infectious disease 43103642 N39.0 - symptoms and POC UA consistent [...] or persistent symptoms Increased frequency of urination 534681260 R35.0 Benign ess ential hypertension 3977960 I10 BP above goalencour aged to set up BP check once feeling better COVID-19 230113300 U07.1 pos 05/25, symptom onset 6 days agodiscuss ed no longer a candidate for paxlovid, given she's feeling better she's also deferred Mab infusion txcontinue OTC care [id number] NANDINI Abdullahi, [facility], [address] [place] [address] 06/29/2022 14:08:51 06/29/2022 14:42:11 Tobacco user 163180225 Z72.0 1/2 ppd mini cigars, not interested in quitting at this time Benign ess ential hypertension 5121605 I10 BP above goalincrea se diltiazem to 240mg, continue olmesartan /HCTZ 40/25mgf/u in a couple weeks to reassess, encouraged home readings and logging in the interim Chronic ob structive pulmonary disease 58981472 J44.9 lungs CTA today, not using combivent often/does n't feel she needs to Morbid obesity 354605826 E66.01 limited exercise due to knee arthritisr eviewed healthy eating habits [id number] NANDINI Abdullahi FP, [facility], [address] [place] [address] 08/13/2022 14:16:08 08/20/2022 15:26:04 Tobacco user 195491200 Z72.0 1/2 ppd mini cigars, not interested in quitting at this timecessat ion discussed and encouraged Active or passive immunization 545602124 Z23 will do flu vaccine today Benign ess ential hypertension 2057717 I10 BP still above goal though improved from last visitincre ase diltiazem to 300mg, continue olmesartan /HCTZ 40/25mgBP cuff sent to karlene to start home checksf/u in 1 month to reassess Morbid obesity 747131832 E66.01 limited exercise due to knee arthritisr eviewed healthy eating habits [id number] Chhaya Sosa NP FP, [facility], [address] [place] [address] 12/27/2022 13:31:55 12/27/2022 14:22:40 Adult health examination 112960597 Z00.00 Depression screening 171 071280 Z13.31 depression screening tool administer ed Screening for alcohol abuse 734999213 Z13.39 Alcohol use screening tool administer ed Essential hypertension 92942611 I10 After a discussion of treatment and medication options, which included considerat ion of the best practices in medicine, a medical plan was provided. The patient's opinions and concerns were included in this treatment plan and goal. 1. Discussed Blood Pressure goals. 2. BP GOAL is under 130/80. Pt is NOT at goal. Morbid obesity 988563238 E66.01 - -Work on healthy eating, weight loss, and exercise-C all if you want to see the nutritioni st Major depr essive disorder 303643153 F32.0 -STABLE on meds Chronic ob structive pulmonary disease 64615074 J44.9 -stable on meds Tobacco user 753116991 Z 72.0 We discussed your smoking today for more than 3 minutes. Cigarette use is the leading cause of preventabl e disease, disability , and in the [place]. We talked about tools and medication s available to help you in smoking cessation. We discussed utilizing our smoking cessation swimming coach or instructor and online resources. Counseled by member of primary health care team 327853151 Z71.9 Today we discussed ways to reduce [...] er may recommend taking daily aspirin. Hypercalciuria 38317422 R82.994 -check labs [id number] Chhaya Sosa NP , [facility], [address] [place] [address] 03/12/2023 16:01:01 03/18/2023 08:17:41 Pain of left breast 9919438263 N64.4 Tobacco user 170689266 Z 72.0 We discussed your smoking today for more than 3 minutes. Cigarette use is the leading cause of preventabl e disease, disability , and in the [place]. We talked about tools and medication s available to help you in smoking cessation. We discussed utilizing our smoking cessation swimming coach or instructor and online resources. Your personal goal: declines Gastroesop hageal reflux disease 104167723 K21.9 restart meds and follow up in 1 month Benign ess ential hypertension 1745793 I10 After a discussion of treatment and [...] . Follow up in 1 months. Dysuria 65720471 R30.0 Atopic dermatitis 701557 01 L20.9 [id number] Chhaya Sosa NP , [facility], [address] [place] [address] 05/02/2023 10:09:52 05/02/2023 10:58:36 Tobacco user 543744459 Z72.0 We discussed your smoking today for more than 3 minutes. Cigarette use is the leading cause of preventabl e disease, disability , and in the [place]. We talked about tools and medication s available to help you in smoking cessation. We discussed utilizing our smoking cessation swimming coach or instructor and online resources. Active or passive immunization 260555579 Z23 shingles- reminded Screening for malignant neoplasm of colon 762014206 Z12.11 declines Dysuria 77295336 R30.0 Patient with urinary symptoms.U MILYLE TO DO URINE AND SHE WILL TAKE HOME W Natasha send urine for culture.Di scussed supportive and preventive measures.P atient instructed to follow up if not better or with new symptoms. Pulmonary emphysema 8743 3001 J43.9 -Patient was validated and supported in ongoing smoking cessation Vitamin D deficiency 347 07763 E55.9 Hyperparathyroidism 6699 9008 E21.3 Pain of le ft knee joint 6752412363 66745 M25.339 [id number] Chhaya Sosa NP FP, [facility], [address] [place] [address] 05/30/2023 11:53:26 05/30/2023 12:41:44 Active or passive immunization 941358678 Z23 shingles- reminded Screening for malignant neoplasm of colon 118000101 Z12.11 Referral for a DIRECT booked colonoscop y. This patient is a healthy ASA Class 1 or 2 patient (only mild systemic disease), or a STABLE, well controlled insulin dependent diabetic. They do not have serious cardiac disease ie UT/angiopl asty within 1 year, symptomati c CHF; renal failure with CKD 4 or 5; take Coumadin, Plavix, Aggrenox, etc. Tobacco user 880665435 Z 72.0 We discussed your smoking today for more than 3 minutes. Cigarette use is the leading cause of preventabl e disease, disability , and in the [place]. We talked about tools and medication s available to help you in smoking cessation. We discussed utilizing our smoking cessation swimming coach or instructor and online resources. Your personal goal: start vareniclin e New medication was discussed today with patient including risks, benefits ,possible and expected side effects. Patient understand s and is willing to begin medication as prescribed . Vitamin D deficiency 347 09909 E55.9 Pulmonary emphysema 8743 3001 J43.9 -Patient was validated and supported in ongoing smoking cessation Cigarette smoker 1652594 7 F17.210 Benign ess ential hypertension 8163329 I10 After a discussion of treatment and medication options, which included considerat ion of the best practices in medicine, a medical plan was provided. The patient's opinions and concerns were included in this treatment plan and goal. 1. Discussed Blood Pressure goals.2. BP GOAL is under 130/80. Patient IS AT GOAL.3.Fol low up in 1 months for smoking. Abdominal aortic aneurysm 156278191 I71.40 [id number] Jude Snowden MD Endocrino logy, [address] [address] 06/12/2023 14:52:56 06/12/2023 15:52:14 Cigarette smoker 21691203 F17.210 Tobacco user 096268928 Z 72.0 Tobacco de pendence syndrome 92233662 F17.290 -current 10cig/d-pl an to start vareniclin e, you are ready to set a date, but you will try this June Primary hyperparathyroidism 98620701 E21.0 -24h urine calcium creatinine while taking in 1000mg calcium daily Osteoporosis 11864820 M8 1.0 [id number] Pollo Castellon MD Sports Medicine, [facility] [address] [place] [address] 08/14/2023 13:35:19 08/21/2023 15:37:35 Tobacco user 330505886 Z72.0 Anabela and I did discuss smoking [...] cessation. Pain of le ft knee joint 5174931729 60301 M25.562 Anabela is a 72-year-ol d female [...] her back as needed for further care. [id number] Chhaya Sosa NP , [facility], [address] [place] [address] 06/21/2023 09:17:58 06/25/2023 13:41:04 Tobacco user 792326874 Z72.0 We discussed your smoking today for more than 3 minutes. Cigarette use is the leading cause of preventabl e disease, disability , and in the [place]. We talked about tools and medication s available to help you in smoking cessation. We discussed utilizing our smoking cessation swimming coach or instructor and online resources. Has michael goldman hasnt started. Recurrent urinary tract infection 187979881 N39.0 After a discussion of treatment and [...] or worsening symptoms. Major depr essive disorder 543404303 F32.0 -STABLE on meds [id number] NANDINI Abdullahi FP, [facility], [address] [place] [address] 06/24/2023 17:15:42 06/26/2023 08:42:29 Tobacco user 264380154 Z72.0 We discussed your smoking today for more than 3 minutes. Cigarette use is the leading cause of preventabl e disease, disability , and in the [facility]. We talked about tools and medication s available to help you in smoking cessation. We discussed utilizing our smoking cessation swimming coach or instructor and online resources. Your personal goal: to quit! recently started oral vareniclin e to help - continue Active or passive immunization 999104656 Z23 Shingrix: had 1st dose Cigarette smoker 5818214 7 F17.210 reports she's in the LDCT program already Hypertensive disorder 38 983686 I10 BP at goal, continue current regimen Vaginal irritation 70393 6004 N89.8 unclear etiology but discussed suspect yeastdecli didier vaginal swab today, does not have active d/cwill try topical clotrimazo le externally to startcall if worsening/ not resolving Urinary tr act infectious disease 69728978 N39.0 finish abx as prescribed , f/u if not resolved after course [id number] Chhaya Sosa NP FP, [facility], [address] [place] [address] 07/11/2023 11:37:45 07/12/2023 09:04:54 Tobacco user 999281740 Z72.0 We discussed your smoking today for more than 3 minutes. Cigarette use is the leading cause of preventabl e disease, disability , and in the [place]. We talked about tools and medication s available to help you in smoking cessation. We discussed utilizing our smoking cessation swimming coach or instructor and online resources. Active or passive immunization 896485878 Z23 shinglchivo- reminded Recurrent urinary tract infection 454966121 N39.0 After a discussion of treatment and [...] ongoing smoking cessation Major depr essive disorder 357633850 F32.0 -STABLE on meds [id number] Jude Snowden MD Endocrino log, [facility] [address] [place] [address] 07/31/2023 12:55:36 07/31/2023 13:54:21 Osteoporosis 90266178 M81.0 Tobacco user 729265791 Z 72.0 Primary hyperparathyroidism 98826904 E21.0 -please stop olmesartan -hydrochlo rothiazide and repeat bp check with [employer]IST Ian in 2 to 4 weeks -after 1 week, reassess 24h urine calcium creatinine while taking in 1000mg calcium daily, 3 to 4 servings of dairy daily -hctz falsely lowers urine calcium Active or passive immunization 661751819 Z23 Cigarette smoker 1191566 7 F17.210 Tobacco de pendence syndrome 08058678 F17.290 -you smoke 1st thing in the morning-gr andson gets on nerves and is one reason you smoke-curr ent up 10cig/d-yo u tried vareniclin e 2 halves, then stopped due to grandson staying with you Essential hypertension 91297909 I10 -please stop olmesartan -hydrochlo rothiazide and repeat bp check with [employer] SPECIALIST Ian in 2 to 4 weeks [id number] Jude Snowden MD Endocrino logy, [facility] [address] [place] [address] 09/11/2023 12:17:04 09/11/2023 14:13:05 Osteoporosis 74609221 M81.0 Primary hyperparathyroidism 96708044 E21.0 -please stop olmesartan -hydrochlo rothiazide , make sure you are off this, your pharmacy states you picked this up today -add calcium 250mg by mouth twice daily, yogurt/priya carlos 2x/d -reassess 24h urine calcium creatinine while taking in 1000mg calcium daily, 2 servings of dairy daily -hctz falsely lowers urine calcium Benign ess ential hypertension 5428400 I10 Tobacco user 636213980 Z 72.0 Cigarette smoker 9329282 7 F17.210 Tobacco de pendence syndrome 06083749 F17.290 -you smoke 1st thing in the morning-cu rrent up 6cig/d-you tried vareniclin e, then stopped due to wanting to smoke more-lozen ges make you gag-you sometimes get a craving to have a cig-you have other things on your mind Essential hypertension 87643502 I10 -please stop olmesartan -hydrochlo rothiazide [id number] Chhaya Sosa NP FP, [facility], [address] [place] [address] 09/20/2023 09:38:38 09/23/2023 09:04:52 Active or passive immunization 763094144 Z23 shingles- reminded Tobacco user 230396682 Z 72.0 We discussed your smoking today for more than 3 minutes. Cigarette use is the leading cause of preventabl e disease, disability , and in the [place]. We talked about tools and medication s available to help you in smoking cessation. We discussed utilizing our smoking cessation swimming coach or instructor and online resources. Your personal goal: Morbid obesity 012767391 E66.01 - -Work on healthy eating, weight loss, and exercise-C all if you want to see the nutritioni Chronic ob structive pulmonary disease 09068254 J44.9 -stable on meds [id number] Jude Snowden MD Endocrino logy, [facility] [address] [place] [address] 10/09/2023 13:53:57 10/09/2023 15:46:30 Osteoporosis 13796900 M81.0 Benign ess ential hypertension 7172956 I10 Primary hyperparathyroidism 29380316 E21.0 -please be off olmesartan -hydrochlo rothiazide , make sure you are off this, your pharmacy states you picked this up today - calcium 250mg by mouth twice daily, yogurt/priya carlos 2x/d -reassess 24h urine calcium creatinine while taking in 1000mg calcium daily, 2 servings of dairy daily -hctz falsely lowers urine calcium Tobacco user 133174683 Z 72.0 Cigarette smoker 5377907 7 F17.210 Tobacco de pendence syndrome 39039101 F17.290 -you smoke 1st thing in the morning-cu rrent up 5 to 6cig/d-you tried vareniclin e, then stopped due to wanting to smoke more-lozen ges make you gag-you sometimes get a craving to have a cig-you have other things on your mind Essential hypertension 93495242 I10 -please stop olmesartan -hydrochlo rothiazide prior to urine calcium testing, may restart after [id number] Jude Snowden MD Endocrino logy, [facility] [address] [place] [address] 11/13/2023 11:11:43 11/13/2023 12:54:44 Primary hyperparathyroidism 67348056 E21.0 -I suggest blood CASR (calcium sensing receptor) genetic testing, you decline -please consider a second opinion or genetic consult after reviewing with your primary provider -return as needed -stay on olmesartan -hydrochlo rothiazide -stop calcium supplement s -hctz falsely lowers urine calcium, but you did not take this during urine testing Osteoporosis 03897674 M8 1.0 Benign ess ential hypertension 4615396 I10 Tobacco user [id number] Z 72.0 Cigarette smoker 7662813 7 F17.210 Tobacco de pendence syndrome 68914118 F17.290 -you smoke 1st thing in the morning-cu rrent up 6cig/d-you tried vareniclin e, then stopped due to wanting to smoke more-lozen ges make you gag-you sometimes get a craving to have a cig-you have other things on your mind Essential hypertension 07204695 I10 -continue olmesartan -hydrochlo rothiazide [id number] YAMILETH Negro, [facility], OFF[address] [place] [address] 11/19/2023 09:17:21 11/19/2023 10:08:31 Nicotine dependence 00138738 F17.200 We discussed your smoking/va ping today for more than 3 minutes. Cigarette/ pod use is the leading cause of preventabl e disease, disability , and in the [place]. We talked about tools and medication s available to help you in smoking/va ping cessation. We discussed utilizing our smoking cessation swimming coach or instructor and online resources. Active or passive immunization 133670128 Z23 shingles- reminded Hyperlipidemia 89193002 E78.5 -check labs Prediabetes 122971565 R7 3.03 -stable Morbid obesity 775671884 E66.01 - -Work on healthy eating, weight loss, and exercise-C all if you want to see the nutritioni Major depr essive disorder 801614342 F32.0 -STABLE on meds-follo w up in 4 months Chronic ob structive pulmonary disease 04601741 J44.9 -stable on meds-encou raged daily walking [id number] Chhaya Sosa NP FP, [facility], [address] [place] [address] 04/23/2024 11:07:23 04/23/2024 12:36:32 Active or passive immunization 005699743 Z23 shingles- reminded Nicotine dependence 5629 4008 [...] cessation. We discussed utilizing our smoking cessation swimming coach or instructor and online resources. Your personal goal: Currently does not want to start smoking cessation. Increased frequency of urination 170864090 R35.0 Urinary frequency at night. unable to ambulate to bathroom at night. Will order urine culture to assess for infection. Urinary incontinence 165 057407 R32 Informed on kegel exercises, option of physical therapy.Di scussed use of urinary pads/under wear. Dilatation of aorta 2666 0001 I77.811 Benign ess ential hypertension 6721634 I10 After a discussion of treatment and [...] for wellness Chronic ob structive pulmonary disease 92130737 J44.9 -stable on meds-encou raged daily walking Abdominal aortic aneurysm 108722737 I71.40 -to get ultrasound Primary hyperparathyroidism 89034027 E21.0 -follow up w Dr Snowden as discussed todat Major depr essive disorder 007156398 F32.0 -STABLE on meds-follo w up in 2 months [id number] KIMBERLYN MOLINA FP, [facility], [address] [place] [address] 05/15/2024 13:44:45 05/15/2024 15:28:47 Pyelonephritis 60022842 N12 Pt w L-sided flank pain, fatigue, [...] to r/u other causes. Fracture of fibula 47918 007 S82.401A in wheelchair unable to get on and off toilet here [id number] Chhaya Sosa NP FP, [facility], [address] [place] [address] 06/15/2024 11:30:11 06/15/2024 12:15:35 Nicotine dependence 28929346 F17.200 We discussed your smoking/va ping today [...] cessation. We discussed utilizing our smoking cessation swimming coach or instructor and online resources. Active or passive immunization 151358386 Z23 shingles- reminded Aneurysm o f infrarenal abdominal aorta 504765787 I71.43 After a discussion of treatment and medication options, which included considerat ion of the best practices in medicine, a medical plan was provided. The patient's opinions and concerns were included in this treatment plan and goal. -Number to VASCULAR given and patient instructed to schedule the appointmen t. Referral completed. -If this specialty office requires [facility] to schedule the appointmen t the patient will call our office back and we will have the referrals department schedule it. -Will call with any new concerns or worsening symptoms. Smoker 76544858 F17.200 We talked about tools and medication s available to help you in smoking/va ping cessation. We discussed utilizing our smoking cessation swimming coach or instructor and online resources. Entropion 00217268 H02.0 09 -to see eye surgeon next week Benign ess ential hypertension 5030095 I10 After a discussion of treatment and [...] 11/13/2023 2 [place] Anabela J Gillette [id number] [facility] 11/13/2023 1 [place] [employer] [place] Anabela J Gillette [id number] [facility] 11/19/2023 2 [place] Anabela J Gillette [id number] [facility] 11/19/2023 1 [place] Anabela J Gillette [id number] [facility] 04/23/2024 2 [place] Anabela J Gillette [id number] [facility] 04/23/2024 1 [place] Anabela J Gillette [id number] [facility] 05/15/2024 2 [place] Anabela J Gillette [id number] [facility] 05/15/2024 1 [place] Anabela J Gillette [id number] [facility] 06/15/2024 2 [place] Anabela J Gillette [id number] [facility] 06/15/2024 1 [place] Anabela J Gillette [id number] [facility] Notes Date Note Type Note Provider Name and Address Organization Details Recorded Time 4 text/html Follow-Up: primary hyperparathyroidismFollo w-Up: osteoporosisFollow-Up: benign essential hypertensionFollow-Up: tobacco userissues;discuss labs from 10/22/23 no falls fractures or kidney stones Jude Snowden MD [address] [place] [address], [place], [address], [facility] 11/13/2023 12:22:59 4 text/html 09/20/23 got wheel [...] ok w inhalers Chhaya Sosa NP [address] [place], [address], [facility] 11/19/2023 10:20:12 4 text/html 04/23/2024I am a student, Coreen TAMEZ, working with Sana Sosa NP. Patient states doing well. David gr son (ellyn son) helping her. Lives with grandson at home. Feel safe at home. 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 Pre op for entropian surgery requested by Dr Brandon Londono.[facility] Surgery next week- 06/23/24 HCP - magno, in chartMolst in chart, wants resuscitation. No issues w anesthesia in past SmokingDeclines medsstill smoking regularlyldct in 11/03 ordered. Chhaya Sosa, YAMILETH [address] [place], [address], [facility] 06/15/2024 12:35:01 OBGyn Episode No OBEpisode recorded.
[2024-12-28 06:44] LABS: Anion Gap 10 (12-20); Blood Urea Nitrogen 14 mg/dL (9-16); Carbon Dioxide 28 mmol/L (22-29); Chloride 109 mmol/L (96-108); Estimated Glomerular Filt Rate > 60; Glucose Random 83 mg/dL (60-115); Potassium 3.6 mmol/L (3.3-5.1); Sodium 143 mmol/L (135-145)
== END 2024-12-28 06:22 | disposition home or self-care (01) ==
LOC: HO.MMNH2L 06:21
PROVIDERS: Visit Provider Student in an Organized Health Care Education/Training Program
DX: E46 Unspecified protein-calorie malnutrition (principal); F32.9 Major depressive disorder, single episode, unspecified; J44.9 Chronic obstructive pulmonary disease, unspecified
CPT/HCPCS: 36415; 80048; 85025

== ENCOUNTER 2025-01-04 06:17 | Outpatient (REF) | payer MEDICARE, MEDICAID, SELFPAY ==
[2025-01-04 06:10] LABS: MANUAL DIFF FLAG NO
[2025-01-04 06:37] LABS: Basophils Absolute Auto 0.1 X10*3/uL (0.0-0.2); Basophils Percent Auto 0.8 % (0-2); Eosinophils Absolute Auto 0.1 X10*3/uL (0.0-0.4); Eosinophils Percent Auto 1.8 % (0-4); Hematocrit 37.2 % (37.0-47.0); Hemoglobin 12.6 g/dl (12.0-16.0); Imm Gran Abs Auto 0.03 X10*3/uL (0.00-0.03); Imm Gran Pct Auto 0.5 % (0.0-0.4); Lymphocytes Absolute Auto 2.1 X10*3/uL (1.2-4.9); Lymphocytes Percent Auto 35.5 % (20-40); Mean Corpuscular HGB Conc 33.9 g/dl (31.0-35.0); Mean Corpuscular Hemoglobin 34.6 pg (27.0-33.0); Mean Corpuscular Volume 102.2 fL (80.0-98.0); Mean Platelet Volume 10.4 fL (9.4-12.3); Monocytes Absolute Auto 0.4 X10*3/uL (0.1-1.2); Monocytes Percent Auto 6.4 % (2-11); Neutrophils Absolute Auto 3.3 x10*3/uL (2.0-8.3); Platelet Count 148 X10*3/uL (160-400); Red Blood Count 3.64 X10*6/uL (4.20-5.50); Red Cell Distribution Width 13.9 % (11.0-16.0)
[2025-01-04 07:07] LABS: Anion Gap 11 (12-20); Blood Urea Nitrogen 19 mg/dL (9-16); Calcium 10.8 mg/dL (8.4-10.2); Carbon Dioxide 28 mmol/L (22-29); Chloride 108 mmol/L (96-108); Estimated Glomerular Filt Rate > 60; Glucose Random 81 mg/dL (60-115); Potassium 3.8 mmol/L (3.3-5.1); Sodium 143 mmol/L (135-145)
== END 2025-01-04 06:18 | disposition home or self-care (01) ==
LOC: HO.MMNH2L 06:17
PROVIDERS: Visit Provider Student in an Organized Health Care Education/Training Program
DX: J44.9 Chronic obstructive pulmonary disease, unspecified (principal); F32.9 Major depressive disorder, single episode, unspecified; E46 Unspecified protein-calorie malnutrition
CPT/HCPCS: 36415; 80048; 85025

== ENCOUNTER 2025-05-10 06:36 | Outpatient (REF) | payer MEDICARE, MEDICAID, SELFPAY ==
--- OUTSIDE RECORDS SUMMARY | 2025-05-10 06:38 | XMS_ITS | Clinical Summary ---
Author Organization [facility] [address] [facility] Address [address] [place] [address] Phone Care Team Providers Care Alarm Technician Name Role Phone Saqib Lock MD Primary Care Provi amelia Medical History Medical History Date Comments Current every day smoker DX:Curr ent every day smoker Essential (primary) hypertension DX:Essential (primary) hypertension COPD (chronic obstructive pu lmonary disease) (CMS/HCC V24, CMS/HCC V28) DX:COPD (chronic o bstructive pulmonary disease) ([facility]) Depression DX:Depression Thyroid disease DX:Thyroid disea [...] on file Obstetrics History Plan of Treatment Health Maintenance Due Date Last Done Comments [...] Influencers of Health Screening 10/09/2022 COVID-19 Vaccine ( - 2023-2 5 season) 2024 Influenza Vaccine (Season Ended) 2025 RSV Immunization Adult Patie nts (1 - 1-dose 75+ series) 2025 HIB [...] age to complete this topic Meningococcal B Vaccine Aged Out No l onger eligible based on patient's age to complete this topic RSV Immunization Patients Un amelia 20 months Aged Out No longer eligible b ased on patient's age to complete this topic Varicella Vaccines Aged Out No longer eligible based on patient's age to complete this topic Insurance [place] - [place]ARE Care Teams Alarm Technician Relationship Specialty Start Date End Date Saqib Lock MD [address] [place], [place] PCP - General 10/30/22
[2025-05-10 06:49] LABS: MANUAL DIFF FLAG NO
[2025-05-10 07:23] LABS: Basophils Absolute Auto 0.1 X10*3/uL (0.0-0.2); Basophils Percent Auto 0.9 % (0-2); Eosinophils Absolute Auto 0.1 X10*3/uL (0.0-0.4); Eosinophils Percent Auto 2.1 % (0-4); Hematocrit 37.2 % (37.0-47.0); Hemoglobin 12.2 g/dl (12.0-16.0); Imm Gran Abs Auto 0.02 X10*3/uL (0.00-0.03); Imm Gran Pct Auto 0.4 % (0.0-0.4); Lymphocytes Absolute Auto 1.9 X10*3/uL (1.2-4.9); Lymphocytes Percent Auto 36.5 % (20-40); Mean Corpuscular HGB Conc 32.8 g/dl (31.0-35.0); Mean Corpuscular Hemoglobin 34.8 pg (27.0-33.0); Mean Platelet Volume 10.7 fL (9.4-12.3); Monocytes Absolute Auto 0.4 X10*3/uL (0.1-1.2); Monocytes Percent Auto 7.9 % (2-11); Neutrophils Absolute Auto 2.8 x10*3/uL (2.0-8.3); Neutrophils Percent Auto 52.2 % (45-73); Platelet Count 133 X10*3/uL (160-400); Red Blood Count 3.51 X10*6/uL (4.20-5.50); Red Cell Distribution Width 12.5 % (11.0-16.0); White Blood Count 5.3 X10*3/uL (4.8-10.8)
[2025-05-10 07:38] LABS: Anion Gap 10 (12-20); Blood Urea Nitrogen 21 mg/dL (9-16); Calcium 10.5 mg/dL (8.4-10.2); Carbon Dioxide 29 mmol/L (22-29); Chloride 109 mmol/L (96-108); Estimated Glomerular Filt Rate > 60; Glucose Random 79 mg/dL (60-115); Potassium 3.3 mmol/L (3.3-5.1); Sodium 145 mmol/L (135-145)
== END 2025-05-10 06:37 | disposition home or self-care (01) ==
LOC: HO.MMNH3L 06:36
PROVIDERS: Visit Provider Family Medicine
DX: I10 Essential (primary) hypertension (principal); M62.59 Muscle wasting and atrophy, not elsewhere classified, multiple sites; E66.01 Morbid (severe) obesity due to excess calories
CPT/HCPCS: 36415; 80048; 85025

== ENCOUNTER 2025-05-17 14:26 | Outpatient (REF) | payer MEDICARE, MEDICAID, SELFPAY ==
[2025-05-17 06:25] LABS: MANUAL DIFF FLAG NO
[2025-05-17 07:07] LABS: Hematocrit 37.6 % (37.0-47.0); Hemoglobin 12.3 g/dl (12.0-16.0); Imm Gran Abs Auto 0.03 X10*3/uL (0.00-0.03); Imm Gran Pct Auto 0.5 % (0.0-0.4); Lymphocytes Absolute Auto 2.1 X10*3/uL (1.2-4.9); Mean Corpuscular HGB Conc 32.7 g/dl (31.0-35.0); Mean Corpuscular Hemoglobin 33.9 pg (27.0-33.0); Mean Corpuscular Volume 103.6 fL (80.0-98.0); NRBC Abs Auto 0.000 X10*3/uL (0.0-0.012); NRBC Pct Auto 0.0 /100WBC (0.0-0.2); Platelet Count 150 X10*3/uL (160-400); Red Blood Count 3.63 X10*6/uL (4.20-5.50); White Blood Count 6.2 X10*3/uL (4.8-10.8)
[2025-05-17 07:12] LABS: Anion Gap 11 (12-20); Blood Urea Nitrogen 20 mg/dL (9-16); Calcium 10.5 mg/dL (8.4-10.2); Carbon Dioxide 29 mmol/L (22-29); Chloride 107 mmol/L (96-108); Estimated Glomerular Filt Rate > 60; Potassium 3.2 mmol/L (3.3-5.1); Sodium 144 mmol/L (135-145)
--- OUTSIDE RECORDS SUMMARY | 2025-05-17 14:59 | XMS_ITS | Clinical Summary ---
Author Organization [facility] 299 [facility] Address [address] [place] [address] Phone Care Team Providers Care Dry Color Mixer Name Role Phone Saqib Lock MD Primary Care Provi amelia Medical History Medical History Date Comments Current every day smoker DX:Curr ent every day smoker Essential (primary) hypertension DX:Essential (primary) hypertension COPD (chronic obstructive pu lmonary disease) (CMS/HCC V24, CMS/HCC V28) DX:COPD (chronic o bstructive pulmonary disease) ([facility]) Depression DX:Depression Thyroid disease DX:Thyroid disea [...] 2023-2 5 season) 2024 Influenza Vaccine (#1) 2025 RSV Immunization Adult Patie nts (1 [...] Insurance [place] - [place] Care Teams Dry Color Mixer Relationship Specialty Start Date End Date Saqib Lock MD [address] [place], [place] PCP - General 10/30/22
--- OUTSIDE RECORDS SUMMARY | 2025-05-17 14:59 | XMS_ITS | Data Portability ---
Author Organization [facility], Main Office Address [address] [facility] [place] [address] Care Team Providers Care Patient Financial Counselor Name Role Phone NIKITA LIN Primary Care Provide r СВЕТЛАНА ROBERSON 2ND FLOOR OTHER Assessment Encounter Date Assessment Date Assessment LastModified by Organization Details LastModified Time 11/05/2024 11/05/2024 Labs 09/14: [id number] 4.6-Bun 16- cr 0.7-wbc 7.1-hgb 9.4-hct 28.7-plt 222 Labs 09/28: Na 144- K 3.0-Bun 12- Cr 0.6-wbc 9.6-hgb 10.40 hct 31.0-plt 198 Labs 10/05:Na 141- K 3.7-Bun 13- Cr 0.6-wbc 5.5-hgb 10.7-hct 32.2-plt 163 Labs 10/13: Na 141-K 3.8-Bun 14-Cr 0.6-wbc 8.2-hgb 11.8-ccd49-sa t 188-calcium 12.7 Labs 10/19: Na 141- K 3.2-Bun 18-cr 0.6-wbc 3.2-hgb 11.5-hct 34.7-200 Labs 10/26: Na 143-K 3.8-Bun 21- Cr 0.8-wbc 6.6-hgb 11.7-hct 35-plt 18- Not available 11/05/2024 14:20:13 11/09/2024 11/09/2024 Labs 09/14: [id number] 4.6-Bun 16- cr 0.7-wbc 7.1-hgb 9.4-hct 28.7-plt 222 Labs 09/28: Na 144- K 3.0-Bun 12- Cr 0.6-wbc 9.6-hgb 10.40 hct 31.0-plt 198 Labs 10/05:Na 141- K 3.7-Bun 13- Cr 0.6-wbc 5.5-hgb 10.7-hct 32.2-plt 163 Labs 10/13: Na 141-K 3.8-Bun 14-Cr 0.6-wbc 8.2-hgb 11.8-got26-to t 188-calcium 12.7 Labs 10/19: Na 141- [...] Address Organization Details Recorded Time Pulmonary emphysema 06137900 Active [address], [facility] [address], [place], [address], [facility] [employer] 3 10:46:22 Osteoarth ritis 496867794 Active [address], [address], [place], [address], [facility] [employer] 3 10:46:28 Asthma 689341438 Active [address], [address], [place], [address], [facility] [employer] 3 10:46:32 Cyst of breast 957429904 Completed 202209/07/2024 KIMBERLYN MERCEDES [address] [facility], [address], [place], [address], [facility] 4 20:44:27 Chronic obstructi ve pulmonary disease 24905586 Active 2022 VANGIE [address] , [address], [place], [address], [facility] 3 10:46:48 Obesity 346579873 Completed 202209/07/2024 KIMBERLYN MERCEDES [address] , [address], [place], [address], [facility] 4 20:44:27 Depressiv e disorder 47443104 Active [address], [address], [place], [address], [facility] 3 10:47:08 Hyperlipi demia 26840658 Active [address], [address], [place], [address], [facility] 3 10:47:16 Polyp of colon 07212667 Completed 202209/07/2024 KIMBERLYN MERCEDES [address] , [address], [place], [address], [facility] 4 20:44:27 History of deep vein thrombosi s 059291726 Active [address], [address], [place], [address], [facility] 3 10:47:37 Essential hypertens ion 30810800 Active [address], [address], [place], [address], [facility] 3 10:51:08 Closed fracture of left patella 468361658989 80019 Completed 202209/07/2024 KIMBERLYN MERCEDES [address] , [address], [place], [address], [facility] 4 20:44:27 Gastroeso phageal reflux disease without esophagit is 337895463 Active [address], [address], [place], [address], [facility] 3 10:57:14 Fall Active [address], [address], [place], [address], [facility] 3 11:02:17 Fracture of proximal end of femur 082869458 Completed 202309/07/2024 KIMBERLYN MERCEDES [address] [facility], [address], [place], [address], [facility] 4 10:10:21 Tobacco user 591351929 Active [address], [address], [place], [address], [facility] 4 15:12:34 Hypercalc emia 74378263 Completed 202309/07/2024 KIMBERLYN MERCEDES [address] [place] [address], [address], [place], [address], [facility] 4 20:44:27 History of thrombocy topenia 858606623334 08 Completed 202309/07/2024 KIMBERLYN MERCEDES [address] [facility], [address], [place], [address], [facility] 4 20:48:33 Constipat ion 68814226 Active 2023 Holly Robles MD [address] [place] [address], [address], [place], [address], [facility] 4 21:45:11 Fracture of proximal end of femur 144426380 Active 2023 KIMBERLYN MERCEDES [address] [facility], [address], [place], [address], [facility] 4 10:10:21 Problem Notes None recorded. Procedures Surgical History Date Name Laterality Status Provider Name and Address Organization Details Recorded Time ligation of fallopian tube completed VANGIE [address], [address], [place], [address], [facility] 01/28/2023 10:47:49 cholecystectomy completed VANGIE LORD [address] [facility], [address], [place], [address], [facility] 01/28/2023 10:47:57 Imaging Results None recorded. [...] lable Vitals Date Recorded Body height Body mass index (BMI) Body weight Heart rate Respiratory rate Body temperature Oxygen saturation Oxygen saturation in Arterial blood by Pulse oximetry Systolic And Diastolic Provider Name and Address Organization Details Last Updated DateTime 5 172.72 cm 34 kg/m2 683617. 61 g 78 /min 18 /min 97.9 [degF] 95 % 95 % 142/78 mm[Hg] LILIA AVINA CNP [address] [facility], [facility] [address], [place], [address], [facility] 5 10:43:49 Date Recorded Body height Provider Name an d Address Organization Details Last Updated DateTime 11/05/2024 172.72 cm KIMBERLYN MERCEDES [address] [facility], [facility] [address], [place], [address], [facility] 11/05/2024 14:20:16 Date Recorded Body height Body temperature Respiratory rate Heart rate Oxygen saturation Oxygen saturation in Arterial blood by Pulse oximetry Systolic And Diastolic Provider Name and Address Organization Details Last Updated DateTime 4 172.72 cm 98 [degF] 18 /min 71 /min 96 % 96 % 122/72 mm[Hg] KIMBERLYN MERCEDES [address] [facility], [facility] [address], [place], [address], [facility] 10:39:20 Social History Question Answer Notes LastModified by Organization Details LastModified Time Tobacco Smoking Status Former Smoker every day, 1 ppd VANGIE LORD [address] [facility], [address], [place], [address], [facility] [employer] 01/28/2023 10:48:58 Do You Have An Advance Directive? Yes Information not available 07/20/2024 What Is Your Code Status? Full Code Information not available 01/28/2023 Where Do You Live? Apartment 1[address] Floor, Accessible. Information not available 07/20/2024 Legal Guardian? No Informati on not available 01/28/2023 Do You Have A Medical Power Of Glue Mixer? Yes Information not available 07/20/2024 What Was The Date Of Your Most Recent Tobacco Screening? 07/20/2024 Information not available 07/20/2024 Do You Have An Out Of Hospital DNR? No Information not available 01/28/2023 What Is Your Relationship Status? Information not available 07/20/2024 How Much Tobacco Do You Smoke? No Smoked 1/2 Ppd Until Hospitalization Information not available 07/20/2024 Has Tobacco Cessation Counseling Been Provided? Yes Thinks She May Quit Information not available 07/20/2024 On What Date Was Tobacco Cessation Counseling Provided? 07/20/2024 Information not available 07/20/2024 Sex: Unknown Functional Status Question Answer Note LastModified by Organizat ion Details LastModified Time Do you use any illicit or recreational drugs? No Information not available 01/28/2023 Do you or have you ever used any other forms of tobacco or nicotine? No Information not available 01/28/2023 What is your level of alcohol consumption? None Information not available 01/28/2023 Mental Status None recorded. Family History Relationship [...] (COVID-19) vaccine, UNSPECIFIED 1 completed [facility]ie [facility] 01/28/2023 16:51:35 SARS-COV-2 (COVID-19) vaccine, UNSPECIFIED 1 [facility] 16:51:48 Tdap 5 completed [facility]ie Schw[facility] 01/28/2023 16:52:09 influenza, unspecified formulation 1 completed Minnie Schw[facility] 01/28/2023 16:52:33 pneumococcal conjugate PCV 7 6 completed Minnie Schw[facility] 01/28/2023 16:53:01 pneumococcal polysaccharide PPV23 2 completed [facility]ie Schw[facility] 01/28/2023 16:53:16 zoster recombinant 9 completed Minnie Schw[facility] 01/28/2023 16:53:33 zoster live 2 completed Minnie Zaheer [facility] 01/28/2023 16:53:50 Influenza, adjuvanted, quadrivalent, PF 2 completed Mily Al[facility] 12/11/2023 11:33:48 Influenza, adjuvanted, quadrivalent, PF 3 completed Mily Almon[facility] 01/09/2024 11:17:44 Past Encounters Encounter ID Performer Location Encounter Start Date Encounter Closed Date Diagnosis/Indication Diagnosis SNOMED-CT Code Diagnosis ICD10 Code Diagnosis Note [id number] VANGIE LORD Gonzalez at [facility] [place] [address] [place] [address] 01/28/2023 10:42:58 01/30/2023 14:52:45 Closed fracture of left patella 4026025043 1846021 S82.002D see HPI, s/p fallKnee immobilize r while OOBWBAT, PT/OT eval and treatmonit or pain control Hyperlipidemia 85122055 E78.5 lipitor 20 mg dailymonit or lipids outpt with PCP Essential hypertension 12337093 I10 cardizem 120 mg dailybenic ar 40-25 dailymonit or bps 136/78 today Gastroesop hageal reflux disease without esophagitis 761137002 K21.9 pepcid 20 mg BIDmonitor for reflux Chronic ob structive pulmonary disease 51125186 J44.9 combivent QIDmonitor resp statusenco urage smoking cessation Pulmonary emphysema 8743 3001 J43.9 see aboveencou rage cessation Depressive disorder 2121 8307 F32.A zoloft 100 mg dailymonit or mood, consult [facility] if needed Fall 8262401 R29.6 fell after getting OOBminimiz e fall riskPT/OT eval and treat [id number] MD Valdez Byrdcox north at [facility] on [address] [place] [address] 01/29/2023 13:50:17 01/31/2023 09:49:56 Fracture of fibula 24500982 S82.402D follow ortho recs; working w pt/ot;has knee immobilize r per ortho;cons ider aspirin anticoagul ation if patient is immobilize d; Essential hypertension 90935609 I10 asymptomat ic; hemodynami alysia stable; good rate; clear lungs; good sats; follow; History of deep vein thrombosis 881711173 Z86.718 noted;afte r knee surgery 2000;she seems to be adequately mobilized at this pointconsi amelia aspirin; Asthma 105059995 J45.90 9 asymptomat ic; on combivent; Hypercholesterolemia 136 02730 E78.00 on statin; Depressive disorder 6134 1044 F32.A well compensate d; on sertraline Medication monitoring 39 0751611 Z51.81 [facility] / Olmesartan -Hydrochlo rothiazide 40/25 mg/d; cardizem CD 120 mg/d;pulm / combivent; endo / lipitor 20 mg/d;heme /gi / pepcid;gu /neuro / sertraline 100 mg/d; [id number] VANGIE Gonzalez at [facility] on [address] [facility], [place] [address] 02/04/2023 09:11:52 02/06/2023 09:35:44 Closed fracture of left patella 9794916484 6746041 S82.002D see HPI, s/p fallKnee immobilize r while OOBWBAT, PT/OT to continue outpt with [facility] Hyperlipidemia 90312739 E78.5 lipitor 20 mg dailymonit or lipids outpt with PCP Essential hypertension 76325563 I10 cardizem 120 mg dailybenic ar 40-25 dailystabl e Gastroesop hageal reflux disease without esophagitis 395250212 K21.9 pepcid 20 mg BID Chronic ob structive pulmonary disease 36826017 J44.9 combivent QIDencoura ge smoking cessation Pulmonary emphysema 8743 3001 J43.9 see aboveencou rage cessation Depressive disorder 3548 9007 F32.A zoloft 100 mg daily Fall R29.6 minimize fall risk at homeremove scatter risk [id number] VANGIE ANGEL [address] [place], [place] [address]JERRY [place] [address] 07/18/2024 09:09:20 07/21/2024 09:00:14 Hyperlipidemia 58949044 E78.5 lipitor 20 mg dailymonit or lipids outpt with PCP Essential hypertension 73704736 I10 cardizem 300 mg dailyavali de dailymonit or bps 136/78 today Gastroesop hageal reflux disease without esophagitis 172018193 K21.9 pepcid 20 mg BIDmonitor for reflux Chronic ob structive pulmonary disease 37490323 J44.9 combivent QID prnmonitor resp statusenco urage smoking cessation Pulmonary emphysema 8743 3001 J43.9 see aboveencou rage cessation Depressive disorder 8338 9007 F32.A zoloft 100 mg dailyvitam in d3 dailymonit or mood, consult [facility] if needed Fall R29.6 see HPIminimiz e fall riskPT/OT eval and treat Tobacco user 270657988 Z 72.0 hx of heavy tobacco use and recently stopped secondary to stay at short-term rehab. She has not requested any nicotine replacemen t therapy while here but that can be offered if need be. Hypercalcemia 63537633 E 83.52 elevated serum calcium levels dating back to spring 2022.Mildl y elevated inpatient and do not appear to be causing her any symptomsHe r PTH was elevated suggesting primary hyperparat hyroidism. Patient should see endocrinol lise through [facility] after [facility] from jail facility.d tr aware to work on this Fracture o f proximal end of femur 047171205 S72.001A s/p pinningWBA T, PT/OT eval and treatmonit or pain controloxy codone 5 mg q 4 hours prnapap 650 mg q 6 hours prnlovenox 40 mg sq x 30 days [id number] MD GAMAL Mac [address] [place] [address] 07/20/2024 19:49:57 07/27/2024 09:02:40 Fracture of proximal end of femur 334524570 S72.021D Recovering as expected.C ontinue oxycodone 5 mg q 4 hrs prn and APAP 650 mg q 6 hrs prnContinu e lovenox 40 mg sq x 30 days for DVT prophylaxi s.Needs PT/OT for strengthen ing, balance, gait training, safety and function.C ontinue fall precaution s.Monitor for safety.F/U with ortho on 07/30 as planned. Essential hypertension 78009142 I10 In good control on diltiazem 300 mg qd and irbesartan /HCTZ 150/12.5 mgMonitor BP and labs. Hyperlipidemia 95451028 E78.49 Continue atorvastat in 20 mg qdMonitor labs as outpt. Gastroesop hageal reflux disease without esophagitis 515103854 K21.9 No current sxs.Contin ue famotidine 20 mg BIDMonitor for GI sxs. Chronic ob structive pulmonary disease 24695707 J43.8 No current sxs.Contin ue combivent 1 puff q 4 hrs prnMonitor resp statusCont inue to encourage smoking cessation Depressive disorder 2018 9007 F33.8 Continue sertraline 100 mg qdMood good today.[place]ridgett tor mood.Consu lt psych prn Fall 1542395 R29.6 PT/OT as above.Cont inue fall precaution s.Monitor for safety. Tobacco user 566527781 Z 72.0 Continue to encourage mcc cessation. Has not smoked since in hospital/r ehab. Hypercalcemia 71914175 E 83.52 Probable primary hyperparat hyroidism. To f/u with endo outpt.Bridgett tor Ca+ levels. History of thrombocytopenia 9415547462 9108 Z86.2 Dropped post-op inpt, now back to nl.Monitor labs. Constipation 10523511 K5 9.03 Will give MOM tonight and start miralax 17 gms qd.Continu e prn medsMonito r bowel function. [id number] VANGEIDIMA ANGEL [address] [place] [address] 07/23/2024 11:08:18 07/24/2024 12:29:48 Fracture of proximal end of femur 810964915 S72.001A s/p pinning- site healing wellWBAT, PT/OT eval and treatoxyco done 5 mg q 4 hours prn - still taking frequently apap 650 mg q 6 hours prnlovenox 40 mg sq x 30 days total fall R29.6 continue PT dailyrepor ts pain with movement but tolerable with oxy Tear of skin 204220315 T 14.8XXD add xeroform to wound bed of skin tear on left arm and cover with foamchange dressing dailyonce [place] [id number] VANGIE GAMALYoselin ANGEL [address] [place] [address] 07/27/2024 09:01:00 07/29/2024 08:25:43 Fracture of proximal end of femur 231163338 S72.001A s/p pinning- site healing wellWBAT, PT/OT [...] working with physical therapy Tear of skin 646976365 T 14.8XXD add xeroform to wound bed of skin tear on left arm and cover with foamContin ue to change dressing dailyonce healed [place] [id number] KIMBERLY SAPPA JEANNE [address] [place] [address] 07/29/2024 11:12:02 07/30/2024 11:51:48 COVID-19 887359147 U07.1 tested posstable on RA, no ssbaseline cough and wheezing w/ h/o COPDpaxlov id not indicated at this timemainta in precaution sretest per protocolmo nitor VS and resp. status [id number] VANGIE ANGEL [address] [place] [address] 08/03/2024 09:12:48 08/04/2024 12:59:14 COVID-19 962957057 U07.1 Recoveredm onitor VS and resp. status Fracture o f proximal end of femur 116207149 S72.001A s/p pinning- site healing wellContin ue [...] drainage, color, and odor. Tear of skin 823174227 T 14.8XXD add xeroform to wound bed of skin tear on left arm and cover with foamContin ue to change dressing daily [id number] VANGIE ANGEL [address] [place] [address] 08/06/2024 10:51:39 08/07/2024 13:04:19 COVID-19 963201962 U07.1 Recovered Fracture o f proximal end of femur 473631935 S72.001A s/p pinning- site healing wellContin ue [...] drainage, color, and odor. Tear of skin 740089875 T 14.8XXD healing Fall R29.6 continue PT daily Essential hypertension 53373355 I10 cardizem 300 mg dailyavali de dailymonit or bps Hyperlipidemia 86895141 E78.5 lipitor 20 mg dailymonit or lipids outpt with PCP Gastroesop hageal reflux disease without esophagitis 684189792 K21.9 pepcid 20 mg BIDmonitor for reflux none noted Chronic ob structive pulmonary disease 74789916 J44.9 combivent QID prnmonitor resp statusenco urage smoking cessation Pulmonary emphysema 8743 3001 J43.9 see aboveencou rage cessation Depressive disorder 3548 9007 F32.A zoloft 100 mg dailyvitam in d3 dailymonit or mood, consult [facility] if needed [id number] VANGIE ANGEL [address] [place] [address] 08/11/2024 09:55:34 08/12/2024 11:44:33 Fracture of proximal end of femur 011909339 S72.001A s/p pinning, site healedorde r placed to remove tata todayConti nue WBAT, PT/OTConti nue oxycodone 5 mg q 4 hours prn- using randomlyCo ntinue apap 650 mg q 6 hours prnlovenox 40 mg sq x 30 days total to end 08/18 Edema of l ower extremity 581404013 R60.0 consider lasix dailyadd cbc bmp bnp tomorrowel 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 Patient should see endocrinol ogy through [facility] after discharge from jail facility.1 1.8 corrected [id number] VANGIE ANGEL [address] [place] [address] 08/19/2024 10:32:29 08/20/2024 13:56:24 Dizziness 510362327 R42 add cbc and bmp tomorrowen courage PO fluidscons ider IVF if neededmoni tor bps [id number] VANGIE ANGEL [address] [address] 08/28/2024 09:55:39 08/31/2024 14:13:31 Dizziness 861599887 R42 resolved Edema of l ower extremity 023087022 R60.0 BNP in range for patientace wraps daily, off qhs Hypercalcemia 47006923 E 83.52 elevated serum calcium levels dating back to spring 2022.Mildl y elevated inpatient and do not appear to be causing her any symptomsHe r PTH was elevated suggesting primary hyperparat hyroidism. Patient should see endocrinol ogy through [facility] after discharge from jail facility.1 1.8 corrected Fracture o f proximal end of femur 357828962 S72.001A s/p pinning, site healedDC oxycodone 5 mg q 4 hours prn-not usingConti nue apap 650 mg q 6 hours prn COVID-19 223418214 U07.1 Recovered Essential hypertension 10810532 I10 cardizem 300 mg dailyavali de daily Hyperlipidemia 89696028 E78.5 lipitor 20 mg dailymonit or lipids outpt with PCP Gastroesop hageal reflux disease without esophagitis 762035671 K21.9 pepcid 20 mg BID Chronic ob structive pulmonary disease 05205635 J44.9 combivent QID prnencoura ge smoking cessation Pulmonary emphysema 8743 3001 J43.9 see aboveencou rage cessation Depressive disorder 1368 4617 F32.A zoloft 100 mg dailyvitam in d3 daily [id number] KIMBERLYN MERCEDES [address] [facility] [place] [place] [address] 09/07/2024 07:41:45 09/08/2024 13:21:36 Closed fracture of hip 959537197 S72.001A s/p ORIFcontin ue lovenox 40 mg daily/dvt ppx for until 10/06conti nue tylenol and oxycodone prnPT/OT eval and TXfollow up with ortho in 2 weeksStapl es covered with dressing intact - not removed Essential hypertension 76936168 I10 meds held in acute care due to soft BPparamete rs to hold for SBP < 120continu e cardizem 300 mg Depressive disorder 3548 9007 F32.A Zoloft 100 mg daily Hypercalcemia 58758914 E 83.52 elevated serum calcium levels dating back to spring 2022.Mildl y elevated inpatient and do not appear to be causing her any symptomsHe r PTH was elevated suggesting primary hyperparat hyroidism. Patient should see endocrinol ogy through [facility] after discharge from jail facility.1 1.8 corrected [facility] 9196357972 4910271 D62 surgery relatedhgb fell from 11.1 to 8.7did not require transfusio nmonitor hgb Hyperlipidemia 00169763 E78.5 lipitor 20 mg dailymonit or lipids outpt with PCP Gastroesop hageal reflux disease without esophagitis 384196083 K21.9 pepcid 20 mg BID Chronic ob structive pulmonary disease 93003347 J44.9 combivent QID prnencoura ge smoking cessation Asthma 223005631 J45.90 9 asymptomat ic; on combivent; History of deep vein thrombosis 078401559 Z86.718 after knee surgery 2000prior to fall not on anticoag due to active mobilityno w on 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 when lovenox is d/c Fall R29.6 PT/OTmaint ain safety Osteoarthritis 496606047 M19.90 continue tylenol prn [id number] MD СВЕТЛАНА Narvaez [address] [facility] [place] [place] [address] 09/08/2024 13:34:28 09/09/2024 12:17:01 Closed fracture of hip 499235854 S72.001A see HPIright hip fx s/p ORIFfollow ortho recs and update with concernsmo nitor for pain controlPT OT eval and treatloven ox for EVT prophylaxi s Essential hypertension 66204897 I10 cardizem 300 mg qdmonitor bp and need to titrate Depressive disorder 3548 9007 F33.8 zoloft 100 mg qdcontinue dmonitor mood Anemia fol lowing acute postoperative blood loss 3338625120 3629489 D62 no transfusio n in hospitalre peat cbc orderediro n studies prn Hyperlipidemia 39719154 E78.2 lipitor 20 mg qdcontinue d Gastroesop hageal reflux disease without esophagitis 881573898 K21.9 famotidine 20 mg bidmonitor for sx relief Chronic ob structive pulmonary disease 67676622 J41.1 continue out patient medication smonitor albuterol utilizatio nencourage 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 Fall R29.6 PT OT eval and treatmonit or fall risk and need for increased support in community Osteoarthritis 402095682 M15.0 controlled with prn tylenoladd ed to PMH Hypokalemia 08050505 E87 .6 now on KCl 40 meqs qdrepeat bmpmonitor lytes [id number] KIMBERLYN MERCEDES [address] [place] [address] 09/17/2024 09:31:46 09/21/2024 12:45:13 Closed fracture of hip 000279821 S72.001A s/p ORIFcontin ue PT/OTconti nue lovenox 40 mg daily/dvt ppx for until 10/06conti nue tylenol and oxycodone prnfollow up with ortho in 2 weeks 09/21/24 aples covered with dressing intact - not removed Essential hypertension 76526158 I10 BP stablecont inue cardizem 300 mg Depressive disorder 3548 9007 F32.A Zoloft 100 mg dailymood is good Hyperlipidemia 35477611 E78.5 lipitor 20 mg dailymonit or lipids outpt with PCP Gastroesop hageal reflux disease without esophagitis 223885829 K21.9 pepcid 20 mg BID Chronic ob structive pulmonary disease 42088946 J44.9 NO Increase WOBcombive nt QID prnencoura ge smoking cessation Fall R29.6 PT/OTmaint ain safety Fracture o f proximal end of femur 614313943 S72.001A s/p left proximal femur IM nail fixation 4cont inue PT/OT [id number] KIMBERLYN MERCEDES [address] [address] 09/21/2024 08:39:37 09/22/2024 11:47:04 Closed fracture of hip 525645510 S72.001A s/p ORIFcontin ue PT/OTconti nue lovenox 40 mg daily/dvt ppx for until 10/06con nue tylenol and oxycodone prnfollow up with ortho in 2 weeks 09/21/24St aples covered with dressing intact - not removed Essential hypertension 44321661 I10 BP stablecont inue cardizem 300 mg Chronic ob structive pulmonary disease 43245816 J44.9 NO Increase WOBcombive nt QID prnencoura ge smoking cessation [id number] KIMBERLYN MERCEDES [address] [address] 10/01/2024 09:07:27 10/02/2024 10:23:31 Closed fracture of hip 373033248 S72.001A s/p ORIFcontin ue PT/OTconti nue lovenox 40 mg daily/dvt ppx for until 10/06conti nue tylenol and oxycodone prnfollow up with ortho in 2 weeks 09/21/24St aples covered with dressing intact - not removed Essential hypertension 78809885 I10 BP stablecont inue cardizem 300 mg Chronic ob structive pulmonary disease 55691707 J44.9 NO Increase WOBcombive nt QID prnencoura ge smoking cessation Acute hypokalemia 963083 03 E87.6 3.0not on diuretics , steroidsst art kcl 10 meq and recheck on 10/04 [id number] KIMBERLYN MERCEDES [address] [address] 10/05/2024 11:16:11 10/06/2024 11:11:03 Closed fracture of hip 315065868 S72.001A s/p ORIFcontin ue PT/OTconti nue lovenox 40 mg daily/dvt ppx for until 10/06con nue tylenol and oxycodone prnfollow up with ortho in 2 weeks 09/21/24in cision healed Essential hypertension 62622265 I10 BP stablecont inue cardizem 300 mg Chronic ob structive pulmonary disease 07551365 J44.9 NO Increase WOBcombive nt QID prnencoura ge smoking cessation Acute hypokalemia 715614 03 E87.6 repleted po with kcl 10 meq improvemen t now noted 3.7? is decrease possible related to recent abx use she was on ciprofloxa jaden for UTIwill monitor K Pain of ri ght knee region 2466602674 69122 M25.561 reports pain started after hip repairdesc ribed as cramping, pain with dorsiflexi onshe is concerned for ? blood clotthere is no swelling or point tenderness will ord ultrasound will order tramadol 50 mg Q6 prn until pending results. [id number] KIMBERLYN MERCEDES [address] [place] [address] 10/12/2024 12:11:08 10/15/2024 11:19:28 Closed fracture of hip 100611285 S72.001A s/p ORIFcontin ue PT/OTconti nue lovenox 40 mg daily/dvt ppx for until 10/06conti nue tylenol and oxycodone prnfollow up with ortho in 2 weeks 09/21/24in cision healed Essential hypertension 38728352 I10 BP stablecont inue cardizem 300 mg Chronic ob structive pulmonary disease 23083598 J44.9 NO Increase WOBcombive nt QID prnencoura ge smoking cessation Pain of ri ght knee region 6029695615 71760 M25.561 see hpiimaging negative for DVTreports pain started after hip repairdesc ribed as cramping, pain with dorsiflexi onshe is concerned for ? blood clotthere is no swelling or point tenderness Hypercalcemia 75648452 E 83.52 today 12.7elevat ed serum calcium levels dating back to spring 2022.Mildl y elevated inpatient and do not appear to be causing her any symptomsHe r PTH was elevated suggesting primary hyperparat hyroidism. refer to endocrinol ogy through [facility] jail facilitydi scussed with nursing to hold calcium and vit D for now [id number] KIMBERLYN MERCEDES [address] [address] 10/15/2024 08:36:48 10/16/2024 12:00:47 Closed fracture of hip 854830773 S72.001A s/p ORIFcontin ue PT/OTconti nue lovenox 40 mg daily/dvt ppx for until 10/06conti nue tylenol and oxycodone prnincisio n healed Essential hypertension 73733630 I10 BP stablecont inue cardizem 300 mg Chronic ob structive pulmonary disease 26484590 J44.9 NO Increase WOBcombive nt QID prnencoura ge smoking cessation Pain of ri ght knee region 3066384806 83183 M25.561 see hpiimaging negative for DVTreports pain started after hip repairdesc ribed as cramping, pain with dorsiflexi onshe is concerned for ? blood clotthere is no swelling or point tenderness Hypercalcemia 90175895 E 83.52 12/3: 12.7elevat ed serum calcium levels dating back to spring 2022.Mildl y elevated do not appear to be causing her any symptomsHe r PTH was elevated suggesting primary hyperparat hyroidism. refer to endocrinol og through [facility] after discharge from jail facilitydi scussed with nursing to hold calcium and vit D for nowmonitor for associated sx [id number] KIMBERLYN MERCEDES [address] [address] 10/19/2024 10:14:51 10/20/2024 14:17:10 Closed fracture of hip 441812478 S72.001A s/p ORIFcontin ue PT/OTconti nue tylenol and oxycodone prnincisio n healed Essential hypertension 00177063 I10 BP stablecont inue cardizem 300 mg Chronic ob structive pulmonary disease 76814623 J44.9 NO Increase WOBcombive nt QID prnencoura ge smoking cessation Pain of ri ght knee region 3003650800 29517 M25.561 see hpiimaging negative for DVTreports pain started after hip repairdesc ribed as cramping, pain with dorsiflexi onshe is concerned for ? blood clotthere is no swelling or point tenderness Hypercalcemia 42957799 E 83.52 upzimnu03/ 9: 11.6elevat ed serum calcium levels dating back to spring 2022.Mildl y elevated do not appear to be causing her any symptomsHe r PTH was elevated suggesting primary hyperparat hyroidism. refer to endocrinol ogprakash through [facility] after discharge from jail facilitydi scussed with nursing to hold calcium and vit D for nowmonitor for associated sx Hypokalemia 11542997 E87 .6 see HPI/suspec t medication inducedK+ 3.2replace now with 20 meq for 1 dosewill add daily kcl 10 meq and continue to monitor. [id number] KIMBERLYN MERCEDES [address] [place] [address] 10/22/2024 08:21:15 10/23/2024 13:25:04 Closed fracture of hip 506056181 S72.001A s/p ORIFcontin ue PT/OT- progressin g slowlycont inue tylenol and oxycodone prnincisio n healed Essential hypertension 64872781 I10 BP stablecont inue cardizem 300 mg Chronic ob structive pulmonary disease 38645770 J44.9 NO Increase WOBcombive nt QID prnencoura ge smoking cessation Pain of ri ght knee region 0812761387 69955 M25.561 imaging negative for DVTthere is no swelling or point tenderness will schedule apap 975 mg TID, pain seems to be interferin g with therapy endurance. discussed with patient and nursing. Hypercalcemia 26813113 E 83.52 chfeoiw69/ 9: 11.6elevat ed serum calcium levels dating back to spring 2022.Mildl y elevated do not appear to be causing her any symptomsHe r PTH was elevated suggesting primary hyperparat hyroidism. refer to endocrinol lise through [facility] after discharge from jail facilitydi scussed with nursing to hold calcium and vit D for nowmonitor for associated sx Hypokalemia 19280214 E87 .6 see HPI/suspec t medication inducedK+ 3.2replace now with 20 meq for 1 dosewill add daily kcl 10 meq and continue to monitor. [id number] KIMBERLYN MERCEDES [address] [address] 10/26/2024 10:36:56 10/27/2024 12:05:26 Closed fracture of hip 733015304 S72.001A s/p ORIFcontin ue PT/OT- progressin g slowlycont inue tylenol and oxycodone prnincisio n healed Chronic ob structive pulmonary disease 27125985 J44.9 NO Increase WOBcombive nt QID prnencoura ge smoking cessation Pain of ri ght knee region 6066101113 15871 M25.561 imaging negative for DVTthere is no swelling or point tenderness continue apap 975 mg TID Hypokalemia 34491770 E87 .6 see HPI/suspec t medication inducedK+ 3.8continu e kcl 10 meq daily.bridgett tor labs [id number] KIMBERLYN MERCEDES [address] [address] 11/02/2024 10:15:17 11/03/2024 09:53:07 Closed fracture of hip 675192264 S72.001A s/p ORIFcontin ue PT/OT- progressin g slowlycont inue tylenol and oxycodone prnincisio n healed Chronic ob structive pulmonary disease 15352640 J44.9 NO Increase WOBcombive nt QID prnencoura ge smoking cessation Dysuria 45597279 R30.0 patient room has strong urine odorUA / C&S pendingnur sing reports hygiene issues noted during straight cathincrea sed fluids encouraged . [id number] KIMBERLYN MERCEDES [address] [address] 11/05/2024 13:49:31 11/06/2024 12:22:28 Dysuria 20372532 R30.0 patient room has strong urine odornursin g reports hygiene issues noted during straight cathincrea sed fluids encouraged . Recurrent urinary tract infection N39.0 see hpiC&S results shows sensitivit y to ceftriaxon ewill stop macrobid and start on ceftriaxon e 1 g qd for 3 daysdiscus sed with nursing [id number] [facility] [address] [place] [address] 11/09/2024 13:20:09 11/18/2024 11:14:37 Recurrent urinary tract infection N39.0 abx completedm onitor for reoccurenc ewater/ increased fluids encouraged [id number] KIMBERLYN MERCEDES [address] [address] 12/10/2024 15:22:50 12/14/2024 16:02:52 Left sided abdominal pain 528959040 R10.9 patient states that she has had this pain in the past and it has been intermitte nt and ongoing, she does not recall if she has seen GIdiscusse d with patient and nursingche ck labs cbc, CMP,straig ht cath for UA with c/sxray KUBconside r referral to GI if labs are non specific Dizziness 177746587 R42 BP 160's (could be related to pain)start meclizine 12.5 mg q 8 prnmonitor for resolution [id number] Timur Beebe MD [address] [address] 01/10/2025 12:58:13 01/11/2025 15:58:22 Fall 0572077 R29.6 therapy followingm onitor fall risk and need for increased support in community vs need to stay LTC Essential hypertension 30220399 I10 cardizem 300 mg qdmonitor bp and need to titrate Gastroesop hageal reflux disease without esophagitis 605805181 K21.9 famotidine 20 mg bidmonitor for sx relief Asthenia 73458645 R53.1 continues to require assist with ADLsworkin g with therapypat ient goal is still home [id number] JOOYUN AVINA, [address] [place] [address] 03/10/2025 10:41:17 03/12/2025 14:08:03 Asthenia 47826246 R53.1 continues to require assist with ADLsworkin g with therapyPT and OT, PRN.rey lopez goal is still home Fall R29.6 no new falls reportedth erapy followingm onitor fall risk and need for increased support in community vs need to stay LTC Essential hypertension 84561597 I10 BP stablecont inuecardiz em 300 mg qdmonitor bp and need to titrate Gastroesop hageal reflux disease without esophagitis 499651633 K21.9 stablefamo tidine 20 mg bidmonitor for sx relief Health Concerns Section Related Observation LastModified by Organization Detai ls LastModified Time None Recorded Concern Status LastModified by Organization Details LastModified Time None Recorded Advance Directives Directive Y: Payers Insurance Date Sequence Insurance Name Policy Number Policy Porras Covered Member ID Porras Member ID Guarantor Name 03/12/2025 2 [place] [facility] Anabela Gillette [id number] [facility] 03/10/2025 1 [place] [email or web address] Anabela J Gillette [id number] [facility] Notes Date Note Type Note Provider Name and Address Organization Details Recorded Time 11/05/2024 text/html This is a 74 yr old femal patient seen for acute rounding visit follow up for suspected UTI. Patient has been at her usually baseline in NAD, she has increased her fluid intake. She was started on macrobid on 11/03. C/S report showed UA is positive for proteus mirabilis with resistance to macrobid. KIMBERLYN MERCEDES [address] [facility], [address], [place], [address], [facility] [employer] 11/05/2024 15:15:00 11/09/2024 text/html This is a 74 yr old femal patient seen for acute rounding visit. Patient is doing well, she is at her baseline in NAD. There sre no acute nursing concerns. She Kaye completed abx therapy and is not experiencing any UTI sx at this time. KIMBERLYN MERCEDES [address] [facility], [address], [place], [address], [facility] [employer] 11/18/2024 10:47:49 12/10/2024 text/html Anabela is a [...] no tenderness or distention. KIMBERLYN MERCEDES [address] [facility], [address], [place], [address], [facility] [employer] 12/10/2024 18:43:42 01/10/2025 text/html Patient is a 74 yo female now LTC resident seen for routine rounding visit. Patient was initially admit from hospital presenting after mechanical fall with right hip pain. Imaging positive for fracture, eval by ortho and underwent ORIF. Patient remains deconditioned unable to ambulate independently now LTC at facility however is working with daughter on possibility for returning home with services Timur Beebe MD [address] [facility], [address], [place], [address], [facility] [employer] 01/10/2025 13:02:00 03/10/2025 text/html Patient is a 74 yo female now LTC resident seen for routine rounding visit. Patient was initially admit from hospital presenting after mechanical fall with right hip pain. Imaging positive for fracture, eval by ortho and underwent ORIF. Patient remains deconditioned unable to ambulate independently now LTC at facility however is working with daughter on possibility for returning home with services. Upon exam today, pt was in PT, VSS, and in NAD. Pt denies acute pain flare, or other concerns today. Discussed the case with nursing, no acute concerns reported. Weeks fall risk assessment done today, 55, high risk. LILIA AVINA, CORIE [address] [facility], [address], [place], [address], [employer] 03/10/2025 10:52:49 OBGyn Episode No OBEpisode recorded.
== END 2025-05-17 14:27 | disposition home or self-care (01) ==
LOC: HO.MMNH3L 14:26
PROVIDERS: Visit Provider Family Medicine
DX: I10 Essential (primary) hypertension (principal); M62.59 Muscle wasting and atrophy, not elsewhere classified, multiple sites; E66.01 Morbid (severe) obesity due to excess calories
CPT/HCPCS: 36415; 80048; 85025

== ENCOUNTER 2025-05-24 06:29 | Outpatient (REF) | payer MEDICARE, MEDICAID, SELFPAY ==
[2025-05-24 06:27] LABS: MANUAL DIFF FLAG NO
--- OUTSIDE RECORDS SUMMARY | 2025-05-24 06:30 | XMS_ITS | Clinical Summary ---
Author Organization [facility] [address] [facility] Address [address] [place] [address] Phone Care Team Providers Care Criminal Justice Instructor Name Role Phone Saqib Lock MD Primary Care Provi amelia Medical History Medical History Date Comments Current every day smoker DX:Curr ent every day smoker Essential (primary) hypertension DX:Essential (primary) hypertension COPD (chronic obstructive pu lmonary disease) (CMS/HCC V24, CMS/HCC V28) DX:COPD (chronic o bstructive pulmonary disease) ([facility]) Depression DX:Depression Thyroid disease DX:Thyroid [...] Insurance [place] - [place] Care Teams Criminal Justice Instructor Relationship Specialty Start Date End Date Saqib Lock MD [address], [place] PCP - General 10/30/22
--- OUTSIDE RECORDS SUMMARY | 2025-05-24 06:31 | XMS_ITS | Continuity of Care Document ---
Author Organization [facility], [facility] Address [address] [place] [address] Care Team Providers Care Press Machine Operator Name Role Phone NIKITA LIN Primary Care Provide r [facility] DA 2ND FLOOR OTHER Assessment No assessment recorded. [...] Address Organization Details Recorded Time Pulmonary emphysema 80837332 Active 2022 [employer] [address], [place], [address], [facility] 3 10:46:22 Osteoarth ritis 217203670 Active 2022 V[facility] [employer] [address] , [address], [place], [address], [facility] [employer] [facility] 3 10:46:28 Asthma 484000212 Active 2022 VANGIE LORD [address], [address], [place], [address], [facility] Frequency 3 10:46:32 Cyst of breast 209036112 Completed 202209/07/2024 KIMBERLYN MERCEDES [address] , [address], [place], [address], [facility] Frequency 4 20:44:27 Chronic obstructi ve pulmonary disease 93075541 Active [address], [address], [place], [address], [facility] 3 10:46:48 Obesity 580437623 Completed 202209/07/2024 KIMBERLYN MERCEDES [address] [facility], [address], [place], [address], [facility] 4 20:44:27 Depressiv e disorder 55274724 Active [address], [address], [place], [address], [facility] 3 10:47:08 Hyperlipi demia 30469390 Active [address], [address], [place], [address], [facility] 3 10:47:16 Polyp of colon 25377857 Completed 202209/07/2024 KIMBERLYN MERCEDES [address] [facility], [address], [place], [address], [facility] 4 20:44:27 History of deep vein thrombosi s 916365565 Active [address], [address], [place], [address], [facility] 3 10:47:37 Essential hypertens ion 72937887 Active [address], [address], [place], [address], [facility] 3 10:51:08 Closed fracture of left patella 088748739397 49741 Completed 202209/07/2024 KIMBERLYN MERCEDES [address] [facility], [address], [place], [address], [facility] 4 20:44:27 Gastroeso phageal reflux disease without esophagit is 637639894 Active [address], [address], [place], [address], [facility] 3 10:57:14 Fall Active 2022 VANGIE LORENZANA [address], [address], [place], [address], [facility] 3 11:02:17 Fracture of proximal end of femur 539713305 Completed 202309/07/2024 KIMBERLYN MERCEDES [address], [address], [place], [address], [facility] 4 10:10:21 Tobacco user 855060205 Active [address], [address], [place], [address], [facility] 4 15:12:34 [facility] emia 38503277 Completed 202309/07/2024 KIMBERLYN MERCEDES [address], [place], [address], [facility] 4 20:44:27 History of thrombocy topenia 587020949953 08 Completed 202309/07/2024 KIMBERLYN MERCEDES [address] , [address], [place], [address], [facility] 4 20:48:33 Constipat ion 22977562 Active 2023 Holly Robles MD [address] [facility], [address], [place], [address], [facility] 4 21:45:11 Fracture of proximal end of femur 925461076 Active 2023 KIMBERLYN MERCEDES [address], [address], [place], [address], [facility] 4 10:10:21 Problem Notes None recorded. Procedures Surgical History Date Name Laterality Status Provider Name and Address Organization Details Recorded Time ligation of fallopian tube completed VANGIEDIMA LORENZANA [address], [address], [place], [address], [facility] 01/28/2023 10:47:49 cholecystectomy completed VANGIE [facility] [address] , [address], [place], [address], [facility] 01/28/2023 10:47:57 Imaging Results None recorded. [...] Details Last Updated DateTime 5 172.72 cm 97.9 [degF] 18 /min 75 /min 96 % 96 % 120/67 mm[Hg] KIMBERLYN MERCEDES [address] [facility], [address], [place], [address], [facility] 5 18:30:55 Social History Question Answer Notes LastModified by Organization Details LastModified Time Tobacco Smoking Status Former Smoker every day, 1 ppd VANGIE LORENZANA [address] [facility], [address], [place], [address], [facility] 01/28/2023 10:48:58 Do You Have An Advance Directive? Yes Information not available 07/20/2024 What Is Your Code Status? Full Code Information not available 01/28/2023 Where Do You Live? Apartment 1[address] Floor, Accessible. Information not available 07/20/2024 Legal Guardian? No Informati on not available 01/28/2023 Do You Have A Medical Power Of Sales Research Analyst? Yes Information not available 07/20/2024 What Was [...] SARS-COV-2 (COVID-19) vaccine, UNSPECIFIED 1 completed Minnie [facility] 01/28/2023 16:51:35 SARS-COV-2 (COVID-19) vaccine, UNSPECIFIED 1 completed Minnie [facility] 01/28/2023 16:51:48 Tdap 5 completed Minnie [facility] 01/28/2023 16:52:09 influenza, unspecified formulation 1 completed Minnie Schw[facility] 01/28/2023 16:52:33 pneumococcal conjugate PCV 7 6 completed Minnie Schwab [facility] 01/28/2023 16:53:01 pneumococcal polysaccharide PPV23 2 completed Minnie Schwab [facility], [facility] 01/28/2023 16:53:16 zoster recombinant 9 completed Minnie Schwab [facility], [facility] 01/28/2023 16:53:33 zoster live 2 completed Minnie yang, [facility] 01/28/2023 16:53:50 Influenza, adjuvanted, quadrivalent, PF 2 completed Mily yang, [facility] 12/11/2023 11:33:48 Influenza, adjuvanted, quadrivalent, PF 3 completed Mily yang, [facility] 01/09/2024 11:17:44 Past Encounters Encounter ID Performer Location Encounter Start Date Encounter Closed Date Diagnosis/Indication Diagnosis SNOMED-CT Code Diagnosis ICD10 Code Diagnosis Note [id number] KIMBERLYN MERCEDES [address] [place] [address] [place] [address] 05/19/2025 05:49:03 05/21/2025 13:03:50 Asthenia 85383579 R53.1 continues to require assist with ADLsworkin g with therapyPT and OT, PRN. Fall R29.6 [facility] fall risk and need for increased support in community vs need to stay LTC Essential hypertension 07246438 I10 BP stablecont inuecardiz em 300 mg qdmonitor bp and need to titrate Gastroesop hageal reflux disease without esophagitis 477793775 K21.9 stablefamo tidine 20 mg bidmonitor for sx relief Asthma 338767343 J45.90 9 asymptomat ic; on combivent; Chronic ob structive pulmonary disease 74668599 J44.9 NO Increase WOBcombive nt QID prnstable Depressive disorder 3548 9007 F32.A Zoloft 100 mg dailystabl e Health Concerns Section Related Observation LastModified by Organization Detai ls LastModified Time None Recorded Concern Status LastModified by Organization Details LastModified Time None Recorded Payers Encounter Date Sequence Insurance Name Policy Number Policy Porras Covered Member ID Porras Member ID Guarantor Name 05/19/2025 2 [place] [facility] [id number] Anabela Gillette 05/19/2025 1 [place] [employer] Anabela Ramos [id number] Anabela Gillette Notes Date Note Type Note Provider Name and Address Organization Details Recorded Time 05/19/2025 text/html 74 yo female now LTC resident seen for routine rounding visit. Patient was initially admit from hospital presenting after mechanical fall with right hip pain. Imaging positive for fracture, eval by ortho and underwent ORIF. Medically she has been stable, there has been no acute concerns. KIMBERLYN MERCEDES [address] [facility], [address], [place], [address], [facility] 05/20/2025 18:46:38 OBGyn Episode No OBEpisode recorded.
[2025-05-24 07:11] LABS: Hematocrit 35.1 % (37.0-47.0); Hemoglobin 11.5 g/dl (12.0-16.0); Imm Gran Abs Auto 0.03 X10*3/uL (0.00-0.03); Imm Gran Pct Auto 0.5 % (0.0-0.4); Lymphocytes Absolute Auto 2.2 X10*3/uL (1.2-4.9); Mean Corpuscular HGB Conc 32.8 g/dl (31.0-35.0); Mean Corpuscular Hemoglobin 34.5 pg (27.0-33.0); Mean Corpuscular Volume 105.4 fL (80.0-98.0); NRBC Abs Auto 0.000 X10*3/uL (0.0-0.012); NRBC Pct Auto 0.0 /100WBC (0.0-0.2); Platelet Count 149 X10*3/uL (160-400); Red Blood Count 3.33 X10*6/uL (4.20-5.50); White Blood Count 6.1 X10*3/uL (4.8-10.8)
[2025-05-24 07:37] LABS: Anion Gap 11 (12-20); Blood Urea Nitrogen 22 mg/dL (9-16); Calcium 10.3 mg/dL (8.4-10.2); Carbon Dioxide 28 mmol/L (22-29); Chloride 109 mmol/L (96-108); Estimated Glomerular Filt Rate > 60; Potassium 3.5 mmol/L (3.3-5.1); Sodium 144 mmol/L (135-145)
== END 2025-05-24 06:30 | disposition home or self-care (01) ==
LOC: HO.MMNH3L 06:29
PROVIDERS: Visit Provider Family Medicine
DX: M62.59 Muscle wasting and atrophy, not elsewhere classified, multiple sites (principal); E66.01 Morbid (severe) obesity due to excess calories; I10 Essential (primary) hypertension
CPT/HCPCS: 36415; 80048; 85025

== ENCOUNTER 2025-05-31 05:53 | Outpatient (REF) | payer MEDICARE, MEDICAID, SELFPAY ==
[2025-05-31 05:51] LABS: MANUAL DIFF FLAG NO
--- OUTSIDE RECORDS SUMMARY | 2025-05-31 05:55 | XMS_ITS | Data Portability ---
Author Organization [facility], Main Office Address [address] [facility], [facility], [place] [address] [place] [address] Care Team Providers Care Feed Handler Name Role Phone NIKITA LIN Primary Care Provide r СВЕТЛАНА ROBERSON 2ND FLOOR OTHER [phone] Assessment Encounter Date Assessment Date Assessment LastModified by Organization Details LastModified Time 11/09/2024 11/09/2024 Labs 09/14: Ca319-G 4.6-Bun 16- cr 0.7-wbc 7.1-hgb 9.4-hct 28.7-plt 222 Labs 09/28: Na 144- K 3.0-Bun 12- Cr 0.6-wbc 9.6-hgb 10.40 hct 31.0-plt 198 Labs 10/05:Na 141- K 3.7-Bun 13- Cr 0.6-wbc 5.5-hgb 10.7-hct 32.2-plt 163 Labs 10/13: Na 141-K 3.8-Bun 14-Cr 0.6-wbc 8.2-hgb 11.8-kzq31-mf t 188-calcium 12.7 Labs 10/19: Na 141- [...] Address Organization Details Recorded Time Pulmonary emphysema 35051621 Active [address], [address], [place], [address], [facility] 3 10:46:22 Osteoarth ritis 719672099 Active [address], [address], [place], [address], [facility] 3 10:46:28 Asthma 907719958 Active [address], [address], [place], [address], [facility] 3 10:46:32 Cyst of breast 099373459 Completed 202209/07/2024 KIMBERLYN MERCEDES [address] [place] [address], [address], [place], [address], [facility] 4 20:44:27 Chronic obstructi ve pulmonary disease 06854991 Active [address], [address], [place], [address], [facility] 3 10:46:48 Obesity 255493997 Completed 202209/07/2024 KIMBERLYN MERCEDES [address] [place] [address], [facility] [address], [place], [address], [facility] 4 20:44:27 Depressiv e disorder 97017436 Active [address], [address], [place], [address], [facility] 3 10:47:08 Hyperlipi demia 37662711 Active [address], [address], [place], [address], [facility] 3 10:47:16 Polyp of colon 30177439 Completed 202209/07/2024 KIMBERLYN MERCEDES [address] , [address], [place], [address], [facility] 4 20:44:27 History of deep vein thrombosi s 466821558 Active 2022 [facility] [address], [place], [address], [facility] 3 10:47:37 Essential hypertens ion 73625472 Active 2022 [facility] [address], [place], [address], [facility] 3 10:51:08 Closed fracture of left patella 380257674872 78064 Completed 202209/07/2024 KIMBERLYN MERCEDES [address] [facility], [address], [place], [address], [facility] 4 20:44:27 Gastroeso phageal reflux disease without esophagit is 025509177 Active [address] [place] [address], [address], [place], [address], [facility] 3 10:57:14 Fall Active 2022 VANGIE LORENZANA [address] [place] [address], [address], [place], [address], [facility] 3 11:02:17 Fracture of proximal end of femur 318345567 Completed 202309/07/2024 KIMBERLYN MERCEDES [address] [facility], [address], [place], [address], [facility] 4 10:10:21 Tobacco user 071690457 Active 2023 VANGIE LORENZANA [address] [place] [address], [address], [place], [address], [facility] 4 15:12:34 [facility] emia 14745452 Completed 202309/07/2024 KIMBERLYN MERCEDES [address] [facility], [address], [place], [address], [facility] 4 20:44:27 History of thrombocy topenia 377987593566 08 Completed 202309/07/2024 KIMBERLYN MERCEDES [address] [facility], [address], [place], [address], [facility] 4 20:48:33 Constipat ion 71994891 Active 2023 Holly Robles MD [address] [facility], [address], [place], [address], [facility] 4 21:45:11 Fracture of proximal end of femur 351624766 Active 2023 KIMBERLYN MERCEDES [address] [facility], [address], [place], [address], [facility] 4 10:10:21 Problem Notes None recorded. Procedures Surgical History Date Name Laterality Status Provider Name and Address Organization Details Recorded Time ligation of fallopian tube completed [address], [address], [place], [address], [facility] 01/28/2023 10:47:49 cholecystectomy completed [address], [facility] [address], [place], [address], [facility] 01/28/2023 10:47:57 Imaging Results None recorded. Procedure [...] Updated DateTime 5 172.72 cm 34 kg/m2 381031. 61 g 78 /min 18 /min 97.9 [degF] 95 % 95 % 142/78 mm[Hg] LILIA AVINA CNP [address] [facility], [address], [place], [address], [facility] 5 10:43:49 Date Recorded Body height Body temperature Respiratory rate Heart rate Oxygen saturation Oxygen saturation in Arterial blood by Pulse oximetry Systolic And Diastolic Provider Name and Address Organization Details Last Updated DateTime 5 172.72 cm 97.9 [degF] 18 /min 75 /min 96 % 96 % 120/67 mm[Hg] KIMBERLYN MERCEDES [address] [facility], [address], [place], [address], [facility] 5 18:30:55 Date Recorded Body height Body temperature Respiratory rate Heart rate Oxygen saturation Oxygen saturation in Arterial blood by Pulse oximetry Systolic And Diastolic Provider Name and Address Organization Details Last Updated DateTime 4 172.72 cm 98 [degF] 18 /min 71 /min 96 % 96 % 122/72 mm[Hg] KIMBERLYN MERCEDES [address] [facility], [address], [place], [address], [facility] 5 10:39:20 Social History Question Answer Notes LastModified by Organization Details LastModified Time Tobacco Smoking Status Former Smoker every day, 1 ppd VANGIE LORENZANA [address] [facility], [facility] [address], [place], [address], [facility] 01/28/2023 10:48:58 Do You Have An Advance Directive? Yes Information not available 07/20/2024 What Is Your Code Status? Full Code Information not available 01/28/2023 Where Do You Live? Apartment 1st Floor, Accessible. Information not available 07/20/2024 Legal Guardian? No Informati on not available 01/28/2023 Do You Have A Medical Power Of Sewer Connector? Yes Information not available 07/20/2024 What Was [...] (COVID-19) vaccine, UNSPECIFIED 1 completed Minnie Schwab [facility] 01/28/2023 16:51:35 SARS-COV-2 (COVID-19) vaccine, UNSPECIFIED 1 completed Minnie Schwab [facility] 01/28/2023 16:51:48 Tdap 5 completed Minnie Schwab [facility] 01/28/2023 16:52:09 influenza, unspecified formulation 1 ankit Schwab [facility] 01/28/2023 16:52:33 pneumococcal conjugate PCV 7 6 ankit Schwab [facility] 01/28/2023 16:53:01 pneumococcal polysaccharide PPV23 2 completed Minnie Schwab [facility] 01/28/2023 16:53:16 zoster recombinant 9 completed Minnie Schwab [facility] 01/28/2023 16:53:33 zoster live 2 completed Minnie Schwab [facility] 01/28/2023 16:53:50 Influenza, adjuvanted, quadrivalent, PF 2 [facility] 11:33:48 Influenza, adjuvanted, quadrivalent, PF 3 completed Milynilda Garcíain [facility] 01/09/2024 11:17:44 Past Encounters Encounter ID Performer Location Encounter Start Date Encounter Closed Date Diagnosis/Indication Diagnosis SNOMED-CT Code Diagnosis ICD10 Code Diagnosis Note [id number] VANGIE LORD Gonzalez at [facility] on [address] [place] [address] 01/28/2023 10:42:58 01/30/2023 14:52:45 Closed fracture of left patella 8049612499 8661859 S82.002D see HPI, s/p fallKnee immobilize r while OOBWBAT, PT/OT eval and treatmonit or pain control Hyperlipidemia 92170802 E78.5 lipitor 20 mg dailymonit or lipids outpt with PCP Essential hypertension 94198996 I10 cardizem 120 mg dailybenic ar 40-25 dailymonit or bps 136/78 today Gastroesop hageal reflux disease without esophagitis 424531924 K21.9 pepcid 20 mg BIDmonitor for reflux Chronic ob structive pulmonary disease 54453426 J44.9 combivent QIDmonitor resp statusenco urage smoking cessation Pulmonary emphysema 8743 3001 J43.9 see aboveencou rage cessation Depressive disorder 7552 4167 F32.A zoloft 100 mg dailymonit or mood, consult [facility] if needed Fall R29.6 fell after getting OOBminimiz e fall riskPT/OT eval and treat [id number] [facility] on [address] [place] [address] 01/29/2023 13:50:17 01/31/2023 09:49:56 Fracture of fibula 01564823 S82.402D follow ortho recs; working w pt/ot;has knee immobilize r per ortho;cons ider aspirin anticoagul ation if patient is immobilize d; Essential hypertension 56968996 I10 asymptomat ic; hemodynami alysia stable; good rate; clear lungs; good sats; follow; History of deep vein thrombosis 341217963 Z86.718 noted;afte r knee surgery 2000;she seems to be adequately mobilized at this pointconsi amelia aspirin; Asthma 229334704 J45.90 9 asymptomat ic; on combivent; Hypercholesterolemia 136 12571 E78.00 on statin; Depressive disorder 3830 4457 F32.A well compensate d; on sertraline Medication monitoring 39 7119777 Z51.81 [facility] / Olmesartan -Hydrochlo rothiazide 40/25 mg/d; cardizem CD 120 mg/d;pulm / combivent; endo / lipitor 20 mg/d;heme /gi / pepcid;gu /neuro / sertraline 100 mg/d; [id number] VANGIE LORENZANA [facility] at [facility] on [address] [place] [address] 02/04/2023 09:11:52 02/06/2023 09:35:44 Closed fracture of left patella 1835424349 4607256 S82.002D see HPI, s/p fallKnee immobilize r while OOBWBAT, PT/OT to continue outpt with [facility] Hyperlipidemia 52664343 E78.5 lipitor 20 mg dailymonit or lipids outpt with PCP Essential hypertension 53075270 I10 cardizem 120 mg dailybenic ar 40-25 dailystabl e Gastroesop hageal reflux disease without esophagitis 904951848 K21.9 pepcid 20 mg BID Chronic ob structive pulmonary disease 97637474 J44.9 combivent QIDencoura ge smoking cessation Pulmonary emphysema 8743 3001 J43.9 see aboveencou rage cessation Depressive disorder 0228 0747 F32.A zoloft 100 mg daily Fall R29.6 minimize fall risk at homeremove scatter risk [id number] VANGIE LORD GAMAL ANGEL [address] [place] [address] 07/18/2024 09:09:20 07/21/2024 09:00:14 Hyperlipidemia 19195325 E78.5 lipitor 20 mg dailymonit or lipids outpt with PCP Essential hypertension 50572950 I10 cardizem 300 mg dailyavali de dailymonit or bps 136/78 today Gastroesop hageal reflux disease without esophagitis 445393469 K21.9 pepcid 20 mg BIDmonitor for reflux Chronic ob structive pulmonary disease 90031451 J44.9 combivent QID prnmonitor resp statusenco urage smoking cessation Pulmonary emphysema 8743 3001 J43.9 see aboveencou rage cessation Depressive disorder 3548 9007 F32.A zoloft 100 mg dailyvitam in d3 dailymonit or mood, consult [facility] if needed Fall R29.6 see HPIminimiz e fall riskPT/OT eval and treat Tobacco user 918854069 Z 72.0 hx of heavy tobacco use and recently stopped secondary to stay at short-term rehab. She has not requested any nicotine replacemen t therapy while here but that can be offered if need be. Hypercalcemia 43972510 E 83.52 elevated serum calcium levels dating back to spring 2022.Mildl y elevated inpatient and do not appear to be causing her any symptomsHe r PTH was elevated suggesting primary hyperparat hyroidism. Patient should see endocrinol ogy through [facility] after [facility] from [facility].d tr aware to work on this Fracture o f proximal end of femur 334991143 S72.001A s/p pinningWBA T, PT/OT eval and treatmonit or pain controloxy codone 5 mg q 4 hours prnapap 650 mg q 6 hours prnlovenox 40 mg sq x 30 days [id number] MD GAMAL Mac [address] [place] [address] 07/20/2024 19:49:57 07/27/2024 09:02:40 Fracture of proximal end of femur 776277549 S72.021D Recovering as expected.C ontinue oxycodone 5 mg q 4 hrs prn and APAP 650 mg q 6 hrs prnContinu e lovenox 40 mg sq x 30 days for DVT prophylaxi s.Needs PT/OT for strengthen ing, balance, gait training, safety and function.C ontinue fall precaution s.Monitor for safety.F/U with ortho on 07/30 as planned. Essential hypertension 64636814 I10 In good control on diltiazem 300 mg qd and irbesartan /HCTZ 150/12.5 mgMonitor BP and labs. Hyperlipidemia 16916489 E78.49 Continue atorvastat in 20 mg qdMonitor labs as outpt. Gastroesop hageal reflux disease without esophagitis 770914580 K21.9 No current sxs.Contin ue famotidine 20 mg BIDMonitor for GI sxs. Chronic ob structive pulmonary disease 99722524 J43.8 No current sxs.Contin ue combivent 1 puff q 4 hrs prnMonitor resp statusCont inue to encourage smoking cessation Depressive disorder 3548 9007 F33.8 Continue sertraline 100 mg qdMood good today.[place] mood.Consu lt psych prn Fall R29.6 PT/OT as above.Cont inue fall precaution s.Monitor for safety. 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 Has not smoked since in hospital/r ehab. Hypercalcemia 71086923 E 83.52 Probable primary hyperparat hyroidism. To f/u with endo outpt.[place] Ca+ levels. History of thrombocytopenia 6048671757 9108 Z86.2 Dropped post-op inpt, now back to nl.Monitor labs. Constipation 45558550 K5 9.03 Will give MOM tonight and start miralax 17 gms qd.Continu e prn medsMonito r bowel function. [id number] [place] [address] 07/23/2024 11:08:18 07/24/2024 12:29:48 Fracture of proximal end of femur 816907706 S72.001A s/p pinning- site healing wellWBAT, PT/OT eval and treatoxyco done 5 mg q 4 hours prn - still taking frequently apap 650 mg q 6 hours prnlovenox 40 mg sq x 30 days total Fall R29.6 continue PT dailyrepor ts pain with movement but tolerable with oxy Tear of skin 351473648 T 14.8XXD add xeroform to wound bed of skin tear on left arm and cover with foamchange dressing dailyonce [place] [id number] VANGIEDIMA ANGEL [address] [place] [address] 07/27/2024 09:01:00 07/29/2024 08:25:43 Fracture of proximal end of femur 431408252 S72.001A s/p pinning- site healing wellWBAT, PT/OT [...] working with physical therapy Tear of skin 122455323 T 14.8XXD add xeroform to wound bed of skin tear on left arm and cover with foamContin ue to change dressing dailyonce healed [place] [id number] DOUG MEJIA NP-Price ANGEL [address] [place] [address] 07/29/2024 11:12:02 07/30/2024 11:51:48 COVID-19 949450391 U07.1 tested posstable on RA, no ssbaseline cough and wheezing w/ h/o COPDpaxlov id not indicated at this timemainta in precaution sretest per protocolmo nitor VS and resp. status [id number] VANGIEDIMA ANGEL [address] [place] [address] 08/03/2024 09:12:48 08/04/2024 12:59:14 COVID-19 253998858 U07.1 Recoveredm onitor VS and resp. status Fracture o f proximal end of femur 959510378 S72.001A s/p pinning- site healing wellContin ue [...] drainage, color, and odor. Tear of skin 571954693 T 14.8XXD add xeroform to wound bed of skin tear on left arm and cover with foamContin ue to change dressing daily [id number] VANGIE ANGEL [address] [place] [address] 08/06/2024 10:51:39 08/07/2024 13:04:19 COVID-19 433797211 U07.1 Recovered Fracture o f proximal end of femur 204816666 S72.001A s/p pinning- site healing wellContin ue [...] drainage, color, and odor. Tear of skin 554229458 T 14.8XXD healing Fall R29.6 continue PT daily Essential hypertension 37309800 I10 cardizem 300 mg dailyavali de dailymonit or bps Hyperlipidemia 22015559 E78.5 lipitor 20 mg dailymonit or lipids outpt with PCP Gastroesop hageal reflux disease without esophagitis 690254257 K21.9 pepcid 20 mg BIDmonitor for reflux none noted Chronic ob structive pulmonary disease 69704048 J44.9 combivent QID prnmonitor resp statusenco urage smoking cessation Pulmonary emphysema 8743 3001 J43.9 see aboveencou rage cessation Depressive disorder 1948 1867 F32.A zoloft 100 mg dailyvitam in d3 dailymonit or mood, consult [facility] if needed [id number] VANGIE [place] [address] 08/11/2024 09:55:34 08/12/2024 11:44:33 Fracture of proximal end of femur 063754236 S72.001A s/p pinning, site healedorde r placed to remove tata todayConti nue WBAT, PT/OTConti nue oxycodone 5 mg q 4 hours prn- using randomlyCo ntinue apap 650 mg q 6 hours prnlovenox 40 mg sq x 30 days total to end 08/18 Edema of l ower extremity 701911227 R60.0 consider lasix dailyadd cbc bmp bnp tomorrowel evate as ableask nurse emergency room to weigh nowadd weights MWF [id number] VANGIE SWANSONCOREYAGUIL[place] [address] 08/12/2024 09:49:29 08/13/2024 15:31:19 Edema of lower extremity 094717069 R60.0 asked for her to be weighed yesterday, nursing note says held, unable to obtain unclear whyBNP in range for patientadd rosa wraps daily, off qhsmonitor Hypercalcemia 65054754 E 83.52 elevated serum calcium levels dating back to spring 2022.Mildl y elevated inpatient and do not appear to be causing her any symptomsHe r PTH was elevated suggesting primary hyperparat hyroidism. Patient should see endocrinol lise through [facility] after discharge from [facility].1 1.8 corrected [id number] VANGIE ANGEL [place] [address] 08/19/2024 10:32:29 08/20/2024 13:56:24 Dizziness 727228738 R42 add cbc and bmp tomorrowen courage PO fluidscons ider IVF if neededmoni tor bps [id number] VANGIE [place] [address] 08/28/2024 09:55:39 08/31/2024 14:13:31 Dizziness 510709521 R42 resolved Edema of l ower extremity 449733736 R60.0 BNP in range for patientace wraps daily, off qhs Hypercalcemia 26105760 E 83.52 elevated serum calcium levels dating back to spring 2022.Mildl y elevated inpatient and do not appear to be causing her any symptomsHe r PTH was elevated suggesting primary hyperparat hyroidism. Patient should see endocrinol ogprakash through [facility] after discharge from [facility].1 1.8 corrected Fracture o f proximal end of femur 691803142 S72.001A s/p pinning, site healedDC oxycodone 5 mg q 4 hours prn-not usingConti nue apap 650 mg q 6 hours prn COVID-19 849071235 U07.1 Recovered Essential hypertension 41507186 I10 cardizem 300 mg dailyavali de daily Hyperlipidemia 93845556 E78.5 lipitor 20 mg dailymonit or lipids outpt with PCP Gastroesop hageal reflux disease without esophagitis 770483677 K21.9 pepcid 20 mg BID Chronic ob structive pulmonary disease 55467022 J44.9 combivent QID prnencoura ge smoking cessation Pulmonary emphysema 8743 3001 J43.9 see aboveencou rage cessation Depressive disorder 8206 9106 F32.A zoloft 100 mg dailyvitam in d3 daily [id number] [facility] [address] [place] [address] 09/07/2024 07:41:45 09/08/2024 13:21:36 Closed fracture of hip 780889568 S72.001A s/p ORIFcontin ue lovenox 40 mg daily/dvt ppx for until 10/06conti nue tylenol and oxycodone prnPT/OT eval and TXfollow up with ortho in 2 weeksStapl es covered with dressing intact - not removed Essential hypertension 96470007 I10 meds held in acute care due to soft BPparamete rs to hold for SBP < 120continu e cardizem 300 mg Depressive disorder 4838 0897 F32.A Zoloft 100 mg daily Hypercalcemia 07826517 E 83.52 elevated serum calcium levels dating back to spring 2022.Mildl y elevated inpatient and do not appear to be causing her any symptomsHe r PTH was elevated suggesting primary hyperparat hyroidism. Patient should see endocrinol lise through [facility] after discharge from [facility].1 1.8 corrected Anemia fol lowing acute postoperative blood loss 1627277405 3164776 D62 surgery relatedhgb fell from 11.1 to 8.7did not require transfusio nmonitor hgb Hyperlipidemia 67715342 E78.5 lipitor 20 mg dailymonit or lipids outpt with PCP Gastroesop hageal reflux disease without esophagitis 508405363 K21.9 pepcid 20 mg BID Chronic ob structive pulmonary disease 48064581 J44.9 combivent QID prnencoura ge smoking cessation Asthma 108413364 J45.90 9 asymptomat ic; on combivent; History of deep vein thrombosis 155411540 Z86.718 after knee surgery 2000prior to fall not on anticoag due to active mobilityno w on 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 adding asa when lovenox is d/c Fall R29.6 PT/OTmaint ain safety Osteoarthritis 479048255 M19.90 continue tylenol prn [id number] Timur Beebe MD [address] [address] 09/08/2024 13:34:28 09/09/2024 12:17:01 Closed fracture of hip 804114601 S72.001A see HPIright hip fx s/p ORIFfollow ortho recs and update with concernsmo nitor for pain controlPT OT eval and treatloven ox for EVT prophylaxi s Essential hypertension 14913331 I10 cardizem 300 mg qdmonitor bp and need to titrate Depressive disorder 3548 9007 F33.8 zoloft 100 mg qdcontinue dmonitor mood Anemia fol lowing acute postoperative blood loss 3396948728 8195182 D62 no transfusio n in hospitalre peat cbc orderediro n studies prn Hyperlipidemia 67289493 E78.2 lipitor 20 mg qdcontinue d Gastroesop hageal reflux disease without esophagitis 415977670 K21.9 famotidine 20 mg bidmonitor for sx relief Chronic ob structive pulmonary disease 33099533 J41.1 continue out patient medication smonitor albuterol utilizatio nencourage 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 Fall R29.6 PT OT eval and treatmonit or fall risk and need for increased support in community Osteoarthritis 938607469 M15.0 controlled with prn tylenoladd ed to PMH Hypokalemia 94291021 E87 .6 now on KCl 40 meqs qdrepeat bmpmonitor lytes [id number] KIMBERLYN MERCEDES [address] [address] 09/17/2024 09:31:46 09/21/2024 12:45:13 Closed fracture of hip 880952601 S72.001A s/p ORIFcontin ue PT/OTconti nue lovenox 40 mg daily/dvt ppx for until 10/06con nue tylenol and oxycodone prnfollow up with ortho in 2 weeks 09/21/24 aples covered with dressing intact - not removed Essential hypertension 14045940 I10 BP stablecont inue cardizem 300 mg Depressive disorder 3548 9007 F32.A Zoloft 100 mg dailymood is good Hyperlipidemia 33873521 E78.5 lipitor 20 mg dailymonit or lipids outpt with PCP Gastroesop hageal reflux disease without esophagitis 388212281 K21.9 pepcid 20 mg BID Chronic ob structive pulmonary disease 99445716 J44.9 NO Increase WOBcombive nt QID prnencoura ge smoking cessation Fall R29.6 PT/OTmaint ain safety Fracture o f proximal end of femur 080812482 S72.001A s/p left proximal femur IM nail fixation 4cont inue PT/OT [id number] KIMBERLYN MERCEDES [address] [address] 09/21/2024 08:39:37 09/22/2024 11:47:04 Closed fracture of hip 161283818 S72.001A s/p ORIFcontin ue PT/OTconti nue lovenox 40 mg daily/dvt ppx for until 10/06conti nue tylenol and oxycodone prnfollow up with ortho in 2 weeks 09/21/24 aples covered with dressing intact - not removed Essential hypertension 27370511 I10 BP stablecont inue cardizem 300 mg Chronic ob structive pulmonary disease 47708361 J44.9 NO Increase WOBcombive nt QID prnencoura ge smoking cessation [id number] KIMBERLYN MERCEDES [address] [address] 10/01/2024 09:07:27 10/02/2024 10:23:31 Closed fracture of hip 871401861 S72.001A s/p ORIFcontin ue PT/OTconti nue lovenox 40 mg daily/dvt ppx for until 10/06conti nue tylenol and oxycodone prnfollow up with ortho in 2 weeks 09/21/24St aples covered with dressing intact - not removed Essential hypertension 43908277 I10 BP stablecont inue cardizem 300 mg Chronic ob structive pulmonary disease 40844594 J44.9 NO Increase WOBcombive nt QID prnencoura ge smoking cessation Acute hypokalemia 320918 03 E87.6 3.0not on diuretics , steroidsst art kcl 10 meq and recheck on 10/04 [id number] KIMBERLYN MERCEDES [address] [address] 10/05/2024 11:16:11 10/06/2024 11:11:03 Closed fracture of hip 377063440 S72.001A s/p ORIFcontin ue PT/OTconti nue lovenox 40 mg daily/dvt ppx for until 10/06conti nue tylenol and oxycodone prnfollow up with ortho in 2 weeks 09/21/24in cision healed Essential hypertension 45815988 I10 BP stablecont inue cardizem 300 mg Chronic ob structive pulmonary disease 29017701 J44.9 NO Increase WOBcombive nt QID prnencoura ge smoking cessation Acute hypokalemia 234389 03 E87.6 repleted po with kcl 10 meq improvemen t now noted 3.7? is decrease possible related to recent abx use she was on ciprofloxa jaden for UTIwill monitor K Pain of ri ght knee region [id number] 78109 M25.561 reports pain started after hip repairdesc ribed as cramping, pain with dorsiflexi onshe is concerned for ? blood clotthere is no swelling or point tenderness will ord ultrasound will order tramadol 50 mg Q6 prn until pending results. [id number] KIMBERLYN MERCEDES [facility] [address] [place] [address] [place] [address] 10/12/2024 12:11:08 10/15/2024 11:19:28 Closed fracture of hip 995532876 S72.001A s/p ORIFcontin ue PT/OTconti nue lovenox 40 mg daily/dvt ppx for until 10/06conti nue tylenol and oxycodone prnfollow up with ortho in 2 weeks 09/21/24in cision healed Essential hypertension 46302105 I10 BP stablecont inue cardizem 300 mg Chronic ob structive pulmonary disease 63904359 J44.9 NO Increase WOBcombive nt QID prnencoura ge smoking cessation Pain of ri ght knee region 5835685093 04703 M25.561 see hpiimaging negative for DVTreports pain started after hip repairdesc ribed as cramping, pain with dorsiflexi onshe is concerned for ? blood clotthere is no swelling or point tenderness Hypercalcemia 22186306 E 83.52 today 12.7elevat ed serum calcium levels dating back to spring 2022.Mildl y elevated inpatient and do not appear to be causing her any symptomsHe r PTH was elevated suggesting primary hyperparat hyroidism. refer to endocrinol lise through [facility] facility[facility] scussed with nursing to hold calcium and vit D for now [id number] KIMBERLYN MERCEDES [address] [place] [address] 10/15/2024 08:36:48 10/16/2024 12:00:47 Closed fracture of hip 085406952 S72.001A s/p ORIFcontin ue PT/OTconti nue lovenox 40 mg daily/dvt ppx for until 10/06conti nue tylenol and oxycodone prnincisio n healed Essential hypertension 76482914 I10 BP stablecont inue cardizem 300 mg Chronic ob structive pulmonary disease 81194876 J44.9 NO Increase WOBcombive nt QID prnencoura ge smoking cessation Pain of ri ght knee region 7218854602 39761 M25.561 see hpiimaging negative for DVTreports pain started after hip repairdesc ribed as cramping, pain with dorsiflexi onshe is concerned for ? blood clotthere is no swelling or point tenderness Hypercalcemia 81781869 E 83.52 123: 12.7elevat ed serum calcium levels dating back to spring 2022.Mildl y elevated do not appear to be causing her any symptomsHe r PTH was elevated suggesting primary hyperparat hyroidism. refer to endocrinol og through [facility] after discharge from [facility] facilitydi scussed with nursing to hold calcium and vit D for nowmonitor for associated sx [id number] KIMBERLYN MERCEDES [address] [place] [address] 10/19/2024 10:14:51 10/20/2024 14:17:10 Closed fracture of hip 177096723 S72.001A s/p ORIFcontin ue PT/OTconti nue tylenol and oxycodone prnincisio n healed Essential hypertension 16165458 I10 BP stablecont ingayle cardizem 300 mg Chronic ob structive pulmonary disease 55837406 J44.9 NO Increase WOBcombive nt QID prnencoura ge smoking cessation Pain of ri ght knee region 8188542834 70234 M25.561 see hpiimaging negative for DVTreports pain started after hip repairdesc ribed as cramping, pain with dorsiflexi onshe is concerned for ? blood clotthere is no swelling or point tenderness Hypercalcemia 45659939 E 83.52 9: 11.6elevat ed serum calcium levels dating back to spring 2022.Mildl y elevated do not appear to be causing her any symptomsHe r PTH was elevated suggesting primary hyperparat hyroidism. refer to endocrinol ogy through [facility] after discharge from [facility] facilitydi scussed with nursing to hold calcium and vit D for nowmonitor for associated sx Hypokalemia 35258467 E87 .6 see HPI/suspec t medication inducedK+ 3.2replace now with 20 meq for 1 dosewill add daily kcl 10 meq and continue to monitor. [id number] [facility] [address] [place] [address] [place] [address] 10/22/2024 08:21:15 10/23/2024 13:25:04 Closed fracture of hip 246540656 S72.001A s/p ORIFcontin ue PT/OT- progressin g slowlycont inue tylenol and oxycodone prnincisio n healed Essential hypertension 89659567 I10 BP stablecont inue cardizem 300 mg Chronic ob structive pulmonary disease 73295905 J44.9 NO Increase WOBcombive nt QID prnencoura ge smoking cessation Pain of ri ght knee region 9668883524 79774 M25.561 imaging negative for DVTthere is no swelling or point tenderness will schedule apap 975 mg TID, pain seems to be interferin g with therapy endurance. discussed with patient and nursing. Hypercalcemia 18412027 E 83.52 hiyhlyk93/ 9: 11.6elevat ed serum calcium levels dating back to spring 2022.Mildl y elevated do not appear to be causing her any symptomsHe r PTH was elevated suggesting primary hyperparat hyroidism. refer to endocrinol lise through [facility] after discharge from [facility] facilitydi scussed with nursing to hold calcium and vit D for nowmonitor for associated sx Hypokalemia 87815349 E87 .6 see HPI/suspec t medication inducedK+ 3.2replace now with 20 meq for 1 dosewill add daily kcl 10 meq and continue to monitor. [id number] KIMBERLYN MERCEDES [address] [place] [address] 10/26/2024 10:36:56 10/27/2024 12:05:26 Closed fracture of hip 697764694 S72.001A s/p ORIFcontin ue PT/OT- progressin g slowlycont inue tylenol and oxycodone prnincisio n healed Chronic ob structive pulmonary disease 19717802 J44.9 NO Increase WOBcombive nt QID prnencoura ge smoking cessation Pain of ri ght knee region 8352418845 40026 M25.561 imaging negative for DVTthere is no swelling or point tenderness continue apap 975 mg TID Hypokalemia 30156762 E87 .6 see HPI/suspec t medication inducedK+ 3.8continu e kcl 10 meq daily.[place] tor labs [id number] KIMBERLYN MERCEDES [address] [address] 11/02/2024 10:15:17 11/03/2024 09:53:07 Closed fracture of hip 624636821 S72.001A s/p ORIFcontin ue PT/OT- progressin g slowlycont inue tylenol and oxycodone prnincisio n healed Chronic ob structive pulmonary disease 61643571 J44.9 NO Increase WOBcombive nt QID prnencoura ge smoking cessation Dysuria 33238381 R30.0 patient room has strong urine odorUA / C&S pendingnur sing reports hygiene issues noted during straight cathincrea sed fluids encouraged . [id number] KIMBERLYN MERCEDES [address] [address] 11/05/2024 13:49:31 11/06/2024 12:22:28 Dysuria 56671424 R30.0 patient room has strong urine odornursin g reports hygiene issues noted during straight cathincrea sed fluids encouraged . Recurrent urinary tract infection 928088563 N39.0 see hpiC&S results shows sensitivit y to ceftriaxon ewill stop macrobid and start on ceftriaxon e 1 g qd for 3 daysdiscus sed with nursing [id number] KIMBERLYN MERCEDES [address] [address] 11/09/2024 13:20:09 11/18/2024 11:14:37 Recurrent urinary tract infection 218993293 N39.0 abx completedm onitor for reoccurenc ewater/ increased fluids encouraged [id number] KIMBERLYN MERCEDES [address] [address] 12/10/2024 15:22:50 12/14/2024 16:02:52 Left sided abdominal pain 470191539 R10.9 patient states that she has had this pain in the past and it has been intermitte nt and ongoing, she does not recall if she has seen GIdiscusse d with patient and nursingche ck labs cbc, CMP,straig ht cath for UA with c/sxray KUBconside r referral to GI if labs are non specific Dizziness 219889403 R42 BP 160's (could be related to pain)start meclizine 12.5 mg q 8 prnmonitor for resolution [id number] Timur Beebe MD [address] [address] 01/10/2025 12:58:13 01/11/2025 15:58:22 Fall R29.6 therapy followingm onitor fall risk and need for increased support in community vs need to stay LTC Essential hypertension 30095424 I10 cardizem 300 mg qdmonitor bp and need to titrate Gastroesop hageal reflux disease without esophagitis 474810429 K21.9 famotidine 20 mg bidmonitor for sx relief Asthenia 28848627 R53.1 continues to require assist with ADLsworkin g with therapypat ient goal is still home [id number] LILIA AVINA CNP [address] [address] 03/10/2025 10:41:17 03/12/2025 14:08:03 Asthenia 61157264 R53.1 continues to require assist with ADLsworkin g with therapyPT and OT, PRN.patien t goal is still home Fall R29.6 no new falls reportedth erapy followingm onitor fall risk and need for increased support in community vs need to stay LTC Essential hypertension 10164553 I10 BP stablecont inuecardiz em 300 mg qdmonitor bp and need to titrate Gastroesop hageal reflux disease without esophagitis 688822561 K21.9 stablefamo tidine 20 mg bidmonitor for sx relief [id number] KIMBERLYN MERCEDES [address] [address] 05/19/2025 05:49:03 05/21/2025 13:03:50 Asthenia 75673993 R53.1 continues to require assist with ADLsworkin g with therapyPT and OT, PRN. Fall R29.6 no new falls reportedth erapy followingm onitor fall risk and need for increased support in community vs need to stay LTC Essential hypertension 41442216 I10 BP stablecont inuecardiz em 300 mg qdmonitor bp and need to titrate Gastroesop hageal reflux disease without esophagitis 505552042 K21.9 stablefamo tidine 20 mg bidmonitor for sx relief Asthma 776196776 J45.90 9 asymptomat ic; on combivent; Chronic ob structive pulmonary disease 06398929 J44.9 NO Increase WOBcombive nt QID prnstable [...] Member ID Guarantor Name 05/19/2025 2 [place] [facility] Anabela Juarezhop [id number] [facility] 05/19/2025 1 [place]ICARE B-[place]: [employer] Anabela [facility] [id number] [facility] Notes Date Note Type Note Provider Name and Address Organization Details Recorded Time 11/09/2024 text/html This is a 74 yr old femal patient seen for acute rounding visit. Patient is doing well, she is at her baseline in [facility]. There sre no acute nursing concerns. She Kaye completed abx therapy and is not experiencing any UTI sx at this time. KIMBERLYN MERCEDES [address] [facility], [address], [place], [address], [facility] [place] 11/18/2024 10:47:49 12/10/2024 text/html Anabela is a [...] no tenderness or distention. KIMBERLYN MERCEDES [address] [facility], [address], [place], [address], Pro[place] 12/10/2024 18:43:42 01/10/2025 text/html Patient is a [...] home with services Timur Beebe MD [address] [facility], [address], [place], [address], Progression 01/10/2025 13:02:00 03/10/2025 text/html Patient is a [...] assessment done today, 55, high risk. LILIA AVINA CNP [address] [facility], [address], [place], [address], Progression 03/10/2025 10:52:49 05/19/2025 text/html 74 yo female now LTC resident seen for routine rounding visit. Patient was initially admit from hospital presenting after mechanical fall with right hip pain. Imaging positive for fracture, eval by ortho and underwent ORIF. Medically she has been stable, there has been no acute concerns. KIMBERLYN MERCEDES [address] [facility], [address], [place], [address], Pro[place] 05/20/2025 18:46:38 OBGyn Episode No OBEpisode recorded.
--- OUTSIDE RECORDS SUMMARY | 2025-05-31 05:55 | XMS_ITS | Clinical Summary ---
Author Organization [facility] [address] [facility] Address [address] [place] [address] Phone Care Team Providers Care Truck Sales Manager Name Role Phone Saqib Lock MD Primary Care Provi amelia Medical History Medical History Date Comments Current every day smoker DX:Curr ent every day smoker Essential (primary) hypertension DX:Essential (primary) hypertension COPD (chronic obstructive pu lmonary disease) (CMS/HCC V24, CMS/HCC V28) DX:COPD (chronic o bstructive pulmonary disease) ([facility]) Depression DX:Depression Thyroid disease DX:Thyroid disea [...] 2) 2000 Colorectal Cancer Screening: Colonoscopy 10/09/2022 Falls Risk Assessment 10/09/2022 Hepatitis C Screening 10/09/2022 Medicare Annual Wellness Visit 10/09/2022 Osteoporosis Screening (Bone Density Screening) 10/09/2022 Social Influencers of Health Screening 10/09/2022 COVID-19 Vaccine ( - 2023-2 5 season) 2024 Depression Screening 11/11/2024 Influenza Vaccine (#1) 2025 RSV Immunization Adult [...] Insurance [place] - [place]ARE Care Teams Truck Sales Manager Relationship Specialty Start Date End Date Saqib Lock MD [address], [place] PCP - General 10/30/22
[2025-05-31 06:50] LABS: Anion Gap 12 (12-20); Blood Urea Nitrogen 21 mg/dL (9-16); Calcium 10.9 mg/dL (8.4-10.2); Carbon Dioxide 30 mmol/L (22-29); Chloride 108 mmol/L (96-108); Estimated Glomerular Filt Rate > 60; Potassium 3.6 mmol/L (3.3-5.1); Sodium 146 mmol/L (135-145)
[2025-05-31 07:01] LABS: Hematocrit 38.0 % (37.0-47.0); Hemoglobin 12.4 g/dl (12.0-16.0); Imm Gran Abs Auto 0.02 X10*3/uL (0.00-0.03); Imm Gran Pct Auto 0.3 % (0.0-0.4); Lymphocytes Absolute Auto 2.1 X10*3/uL (1.2-4.9); Mean Corpuscular HGB Conc 32.6 g/dl (31.0-35.0); Mean Corpuscular Hemoglobin 34.5 pg (27.0-33.0); Mean Corpuscular Volume 105.8 fL (80.0-98.0); NRBC Abs Auto 0.000 X10*3/uL (0.0-0.012); NRBC Pct Auto 0.0 /100WBC (0.0-0.2); Platelet Count 154 X10*3/uL (160-400); Red Blood Count 3.59 X10*6/uL (4.20-5.50); White Blood Count 6.4 X10*3/uL (4.8-10.8)
== END 2025-05-31 05:54 | disposition home or self-care (01) ==
LOC: HO.MMNH3L 05:53
PROVIDERS: Visit Provider Family Medicine
DX: I10 Essential (primary) hypertension (principal); J44.9 Chronic obstructive pulmonary disease, unspecified
CPT/HCPCS: 36415; 80048; 85025

== ENCOUNTER 2025-06-07 06:11 | Outpatient (REF) | payer MEDICARE, MEDICAID, SELFPAY ==
[2025-06-07 05:52] LABS: MANUAL DIFF FLAG NO
--- OUTSIDE RECORDS SUMMARY | 2025-06-07 06:13 | XMS_ITS | Clinical Summary ---
Author Organization [facility] [address] [facility] Address [address] [place] [address] Phone Care Team Providers Care Site Specialist Name Role Phone Saqib Lock MD Primary Care Provi amelia Medical History Medical History Date Comments Current every day smoker DX:Curr ent every day smoker Essential (primary) hypertension DX:Essential (primary) hypertension COPD (chronic obstructive pu lmonary disease) (CMS/HCC V24, CMS/HCC V28) DX:COPD (chronic o bstructive pulmonary disease) ([facility]) Depression DX:Depression Thyroid disease [...] Insurance [place] - [place] Care Teams Site Specialist Relationship Specialty Start Date End Date Saqib Lock MD [address] [place], [place] PCP - General 10/30/22
--- OUTSIDE RECORDS SUMMARY | 2025-06-07 06:13 | XMS_ITS | Encounter Summary ---
Author Organization [facility] Address [address] [facility] [address] [place] [address] Phone Care Team Providers Care Copper Flotation Operator Name Role Phone Chhaya Sosa NP Primary Care Provider [phone] Encounter Details Date Type Department Care Team (Late st Contact Info) Description 03/15/2023 Procedure [facility], [facility] [address] [place] [address] Social History Tobacco Use Types Packs/Day Years [...] on file 03/08/2023 No 03/08/2023 No 03/08/2023 Comments No Sex and Gender Information Value Date Recorded Sex Assigned at Female 02/06/2023 2:13 PM EDT Legal Sex Female 10:02 PM EDT Gender Identity Female 02/06/2023 2:13 PM EDT Sexual Orientation Not on file documented as of this encounter Plan of Treatment Not on file documented as of this encounter Visit Diagnoses Not on filedocumented in this encounter Additional Health Concerns Infection Onset Date Last Indicated Resolved Time CDiff-Risk 09/04/2024 09/04/2024 09/05/2024 2:50 PM EDT documented as of this encounter Care Teams Copper Flotation Operator Relationship Specialty Start Date End Date Chhaya Sosa NP [address] [place] [address] [email or web address] PCP - General Nurse Practitioner 02/05/23 documented as of this encounter Additional Source Comments The information contained in this document represents components of the legal health record. It is not the complete legal health record.[facility]
--- OUTSIDE RECORDS SUMMARY | 2025-06-07 06:13 | XMS_ITS | Data Portability ---
Author Organization [facility], Main Office Address [address] [facility], [facility] [address] [place] [address] Care Team Providers Care Munitions Handler Supervisor Name Role Phone NIKITA LIN Primary Care Provide r СВЕТЛАНА ROBERSON 2ND FLOOR OTHER Assessment Encounter Date Assessment Date Assessment LastModified by Organization Details LastModified Time 11/09/2024 11/09/2024 Labs 09/14: Et946-F 4.6-Bun 16- cr 0.7-wbc 7.1-hgb 9.4-hct 28.7-plt 222 Labs 09/28: Na 144- K 3.0-Bun 12- Cr 0.6-wbc 9.6-hgb 10.40 hct 31.0-plt 198 Labs 10/05:Na 141- K 3.7-Bun 13- Cr 0.6-wbc 5.5-hgb 10.7-hct 32.2-plt 163 Labs 10/13: Na 141-K 3.8-Bun 14-Cr 0.6-wbc 8.2-hgb 11.8-mpl54-wz t 188-calcium 12.7 Labs 10/19: Na 141- [...] Address Organization Details Recorded Time Pulmonary emphysema 47232640 Active [address], [address], [place], [address], [facility] 3 10:46:22 Osteoarth ritis 764762487 Active [address], [address], [place], [address], [facility] 3 10:46:28 Asthma 630432866 Active [address], [address], [place], [address], [facility] 3 10:46:32 Cyst of breast 225837989 Completed 202209/07/2024 KIMBERLYN MERCEDES [address] [place] [address], [address], [place], [address], [facility] 4 20:44:27 Chronic obstructi ve pulmonary disease 11889768 Active [address], [address], [place], [address], [facility] 3 10:46:48 Obesity 091049823 Completed 202209/07/2024 KIMBERLYN MERCEDES [address] [place] [address], [facility] [address], [place], [address], [facility] 4 20:44:27 Depressiv e disorder 53654726 Active [address], [address], [place], [address], [facility] 3 10:47:08 Hyperlipi demia 98205971 Active [address], [address], [place], [address], [facility] 3 10:47:16 Polyp of colon 06439583 Completed 202209/07/2024 KIMBERLYN MERCEDES [address] , [address], [place], [address], [facility] 4 20:44:27 History of deep vein thrombosi s 978032866 Active 2022 [facility] [address], [place], [address], [facility] 3 10:47:37 Essential hypertens ion 71484565 Active 2022 [facility] [address], [place], [address], [facility] 3 10:51:08 Closed fracture of left patella 721124502304 44536 Completed 202209/07/2024 KIMBERLYN MERCEDES [address] [facility], [address], [place], [address], [facility] 4 20:44:27 Gastroeso phageal reflux disease without esophagit is 066650377 Active [address] [place] [address], [address], [place], [address], [facility] 3 10:57:14 Fall Active 2022 VANGIE LORENZANA [address] [place] [address], [address], [place], [address], [facility] 3 11:02:17 Fracture of proximal end of femur 663545882 Completed 202309/07/2024 KIMBERLYN MERECDES [address] [facility], [address], [place], [address], [facility] 4 10:10:21 Tobacco user 302452020 Active 2023 VANGIE LORENZANA [address] [place] [address], [address], [place], [address], [facility] 4 15:12:34 [facility] emia 11583383 Completed 202309/07/2024 KIMBERLYN MERCEDES [address] [facility], [address], [place], [address], [facility] 4 20:44:27 History of thrombocy topenia 534795170953 08 Completed 202309/07/2024 KIMBERLYN MERCEDES [address] [facility], [address], [place], [address], [facility] 4 20:48:33 Constipat ion 07578268 Active 2023 Holly Robles MD [address] [facility], [address], [place], [address], [facility] 4 21:45:11 Fracture of proximal end of femur 553356714 Active 2023 KIMBERLYN MERCEDES [address] [facility], [address], [place], [address], [facility] 4 10:10:21 Problem Notes None recorded. Procedures Surgical History Date Name Laterality Status Provider Name and Address Organization Details Recorded Time ligation of fallopian tube completed [address], [address], [place], [address], [facility] 01/28/2023 10:47:49 cholecystectomy completed [address], [facility] [address], [place], [address], [facility] 01/28/2023 10:47:57 Imaging Results None recorded. Procedure [...] Updated DateTime 5 172.72 cm 34 kg/m2 856683. 61 g 78 /min 18 /min 97.9 [degF] 95 % 95 % 142/78 mm[Hg] LILIA AVINA CNP [address] [facility], [address], [place], [address], [facility] 5 10:43:49 Date Recorded Body height Body temperature Respiratory rate Heart rate Oxygen saturation Oxygen saturation in Arterial blood by Pulse oximetry Systolic And Diastolic Provider Name and Address Organization Details Last Updated DateTime 5 172.72 cm 97.9 [degF] 18 /min 75 /min 96 % 96 % 120/67 mm[Hg] KIMBERLYN MERCEDES [address] [facility], [address], [place], [address], [facility] 5 18:30:55 Date Recorded Body height Body temperature Respiratory rate Heart rate Oxygen saturation Oxygen saturation in Arterial blood by Pulse oximetry Systolic And Diastolic Provider Name and Address Organization Details Last Updated DateTime 4 172.72 cm 98 [degF] 18 /min 71 /min 96 % 96 % 122/72 mm[Hg] KIMBERLYN MERCEDES [address] [facility], [address], [place], [address], [facility] 5 10:39:20 Social History Question Answer Notes LastModified by Organization Details LastModified Time Tobacco Smoking Status Former Smoker every day, 1 ppd VANGIE LOREZNANA [address] [facility], [facility] [address], [place], [address], [facility] 01/28/2023 10:48:58 Do You Have An Advance Directive? Yes Information not available 07/20/2024 What Is Your Code Status? Full Code Information not available 01/28/2023 Where Do You Live? Apartment 1st Floor, Accessible. Information not available 07/20/2024 Legal Guardian? No Informati on not available 01/28/2023 Do You Have A Medical Power Of Clinic Charge Nurse? Yes Information not available 07/20/2024 What Was [...] (COVID-19) vaccine, UNSPECIFIED 1 completed Minnie Schwab [facility] 01/28/2023 16:51:35 SARS-COV-2 (COVID-19) vaccine, UNSPECIFIED 1 completed Minnie Schwab [facility] 01/28/2023 16:51:48 Tdap 5 completed Minnie Schwab [facility] 01/28/2023 16:52:09 influenza, unspecified formulation 1 ankit Schwab [facility] 01/28/2023 16:52:33 pneumococcal conjugate PCV 7 6 ankit Schwab [facility] 01/28/2023 16:53:01 pneumococcal polysaccharide PPV23 2 completed Minnie Schwab [facility] 01/28/2023 16:53:16 zoster recombinant 9 completed Minnie Schwab [facility] 01/28/2023 16:53:33 zoster live 2 completed Minnie Schwab [facility] 01/28/2023 16:53:50 Influenza, adjuvanted, quadrivalent, PF 2 [facility] 11:33:48 Influenza, adjuvanted, quadrivalent, PF 3 completed Milynilda Garcíain [facility] 01/09/2024 11:17:44 Past Encounters Encounter ID Performer Location Encounter Start Date Encounter Closed Date Diagnosis/Indication Diagnosis SNOMED-CT Code Diagnosis ICD10 Code Diagnosis Note [id number] VANGIE LORD Gonzalez at [facility] on [address] [place] [address] 01/28/2023 10:42:58 01/30/2023 14:52:45 Closed fracture of left patella 3341756068 1857205 S82.002D see HPI, s/p fallKnee immobilize r while OOBWBAT, PT/OT eval and treatmonit or pain control Hyperlipidemia 35548556 E78.5 lipitor 20 mg dailymonit or lipids outpt with PCP Essential hypertension 61822979 I10 cardizem 120 mg dailybenic ar 40-25 dailymonit or bps 136/78 today Gastroesop hageal reflux disease without esophagitis 791425674 K21.9 pepcid 20 mg BIDmonitor for reflux Chronic ob structive pulmonary disease 58893241 J44.9 combivent QIDmonitor resp statusenco urage smoking cessation Pulmonary emphysema 8743 3001 J43.9 see aboveencou rage cessation Depressive disorder 5128 3287 F32.A zoloft 100 mg dailymonit or mood, consult [facility] if needed Fall R29.6 fell after getting OOBminimiz e fall riskPT/OT eval and treat [id number] [facility] on [address] [place] [address] 01/29/2023 13:50:17 01/31/2023 09:49:56 Fracture of fibula 52392391 S82.402D follow ortho recs; working w pt/ot;has knee immobilize r per ortho;cons ider aspirin anticoagul ation if patient is immobilize d; Essential hypertension 46389183 I10 asymptomat ic; hemodynami alysia stable; good rate; clear lungs; good sats; follow; History of deep vein thrombosis 177882990 Z86.718 noted;afte r knee surgery 2000;she seems to be adequately mobilized at this pointconsi amelia aspirin; Asthma 427302238 J45.90 9 asymptomat ic; on combivent; Hypercholesterolemia 136 34675 E78.00 on statin; Depressive disorder 7243 7487 F32.A well compensate d; on sertraline Medication monitoring 39 8011651 Z51.81 [facility] / Olmesartan -Hydrochlo rothiazide 40/25 mg/d; cardizem CD 120 mg/d;pulm / combivent; endo / lipitor 20 mg/d;heme /gi / pepcid;gu /neuro / sertraline 100 mg/d; [id number] VANGIE LORENZANA [facility] at [facility] on [address] [place] [address] 02/04/2023 09:11:52 02/06/2023 09:35:44 Closed fracture of left patella 1529337640 7789560 S82.002D see HPI, s/p fallKnee immobilize r while OOBWBAT, PT/OT to continue outpt with [facility] Hyperlipidemia 44918551 E78.5 lipitor 20 mg dailymonit or lipids outpt with PCP Essential hypertension 07744747 I10 cardizem 120 mg dailybenic ar 40-25 dailystabl e Gastroesop hageal reflux disease without esophagitis 973835696 K21.9 pepcid 20 mg BID Chronic ob structive pulmonary disease 45424326 J44.9 combivent QIDencoura ge smoking cessation Pulmonary emphysema 8743 3001 J43.9 see aboveencou rage cessation Depressive disorder 8019 5987 F32.A zoloft 100 mg daily Fall R29.6 minimize fall risk at homeremove scatter risk [id number] VANGIE LORD GAMAL ANGEL [address] [place] [address] 07/18/2024 09:09:20 07/21/2024 09:00:14 Hyperlipidemia 02367072 E78.5 lipitor 20 mg dailymonit or lipids outpt with PCP Essential hypertension 56763345 I10 cardizem 300 mg dailyavali de dailymonit or bps 136/78 today Gastroesop hageal reflux disease without esophagitis 709656805 K21.9 pepcid 20 mg BIDmonitor for reflux Chronic ob structive pulmonary disease 82078329 J44.9 combivent QID prnmonitor resp statusenco urage smoking cessation Pulmonary emphysema 8743 3001 J43.9 see aboveencou rage cessation Depressive disorder 3548 9007 F32.A zoloft 100 mg dailyvitam in d3 dailymonit or mood, consult [facility] if needed Fall R29.6 see HPIminimiz e fall riskPT/OT eval and treat Tobacco user 417957266 Z 72.0 hx of heavy tobacco use and recently stopped secondary to stay at short-term rehab. She has not requested any nicotine replacemen t therapy while here but that can be offered if need be. Hypercalcemia 28053065 E 83.52 elevated serum calcium levels dating back to spring 2022.Mildl y elevated inpatient and do not appear to be causing her any symptomsHe r PTH was elevated suggesting primary hyperparat hyroidism. Patient should see endocrinol ogy through [facility] after discharge from custodial facility.d tr aware to work on this Fracture o f proximal end of femur 018439103 S72.001A s/p pinningWBA T, PT/OT eval and treatmonit or pain controloxy codone 5 mg q 4 hours prnapap 650 mg q 6 hours prnlovenox 40 mg sq x 30 days [id number] MD GAMAL Mac [address] [place] [address] 07/20/2024 19:49:57 07/27/2024 09:02:40 Fracture of proximal end of femur 062241762 S72.021D Recovering as expected.C ontinue oxycodone 5 mg q 4 hrs prn and APAP 650 mg q 6 hrs prnContinu e lovenox 40 mg sq x 30 days for DVT prophylaxi s.Needs PT/OT for strengthen ing, balance, gait training, safety and function.C ontinue fall precaution s.Monitor for safety.F/U with ortho on 07/30 as planned. Essential hypertension 05495475 I10 In good control on diltiazem 300 mg qd and irbesartan /HCTZ 150/12.5 mgMonitor BP and labs. Hyperlipidemia 67858501 E78.49 Continue atorvastat in 20 mg qdMonitor labs as outpt. Gastroesop hageal reflux disease without esophagitis 376286614 K21.9 No current sxs.Contin ue famotidine 20 mg BIDMonitor for GI sxs. Chronic ob structive pulmonary disease 96923590 J43.8 No current sxs.Contin ue combivent 1 puff q 4 hrs prnMonitor resp statusCont inue to encourage smoking cessation Depressive disorder 3548 9007 F33.8 Continue sertraline 100 mg qdMood good today.[place] tor mood.Consu lt psych prn Fall R29.6 PT/OT as above.Cont inue fall precaution s.Monitor for safety. Tobacco user 742622092 Z 72.0 Continue to encourage rn long term care cessation. Has not smoked since in hospital/r ehab. Hypercalcemia 00105511 E 83.52 Probable primary hyperparat hyroidism. To f/u with endo outpt.[place] tor Ca+ levels. History of thrombocytopenia 8806275483 9108 Z86.2 Dropped post-op inpt, now back to nl.Monitor labs. Constipation 88890147 K5 9.03 Will give MOM tonight and start miralax 17 gms qd.Continu e prn medsMonito r bowel function. [id number] [place] [address] 07/23/2024 11:08:18 07/24/2024 12:29:48 Fracture of proximal end of femur 726557417 S72.001A s/p pinning- site healing wellWBAT, PT/OT eval and treatoxyco done 5 mg q 4 hours prn - still taking frequently apap 650 mg q 6 hours prnlovenox 40 mg sq x 30 days total Fall R29.6 continue PT dailyrepor ts pain with movement but tolerable with oxy Tear of skin 979324003 T 14.8XXD add xeroform to wound bed of skin tear on left arm and cover with foamchange dressing dailyonce healed [place] [id number] VANGIEDIMA ANGEL [address] [place] [address] 07/27/2024 09:01:00 07/29/2024 08:25:43 Fracture of proximal end of femur 683257785 S72.001A s/p pinning- site healing wellWBAT, PT/OT [...] working with physical therapy Tear of skin 089054575 T 14.8XXD add xeroform to wound bed of skin tear on left arm and cover with foamContin ue to change dressing dailyonce healed [place] [id number] DOUG MEJIA NP-Price ANGEL [address] [place] [address] 07/29/2024 11:12:02 07/30/2024 11:51:48 COVID-19 668710780 U07.1 tested posstable on RA, no ssbaseline cough and wheezing w/ h/o COPDpaxlov id not indicated at this timemainta in precaution sretest per protocolmo nitor VS and resp. status [id number] VANGIEDIMA ANGEL [address] [place] [address] 08/03/2024 09:12:48 08/04/2024 12:59:14 COVID-19 610072364 U07.1 Recoveredm onitor VS and resp. status Fracture o f proximal end of femur 246028056 S72.001A s/p pinning- site healing wellContin ue [...] drainage, color, and odor. Tear of skin 746547546 T 14.8XXD add xeroform to wound bed of skin tear on left arm and cover with foamContin ue to change dressing daily [id number] VANGIE ANGEL [address] [place] [address] 08/06/2024 10:51:39 08/07/2024 13:04:19 COVID-19 144251711 U07.1 Recovered Fracture o f proximal end of femur 063155808 S72.001A s/p pinning- site healing wellContin ue [...] drainage, color, and odor. Tear of skin 059935529 T 14.8XXD healing Fall R29.6 continue PT daily Essential hypertension 38238946 I10 cardizem 300 mg dailyavali de dailymonit or bps Hyperlipidemia 79287441 E78.5 lipitor 20 mg dailymonit or lipids outpt with PCP Gastroesop hageal reflux disease without esophagitis 693628915 K21.9 pepcid 20 mg BIDmonitor for reflux none noted Chronic ob structive pulmonary disease 27315333 J44.9 combivent QID prnmonitor resp statusenco urage smoking cessation Pulmonary emphysema 8743 3001 J43.9 see aboveencou rage cessation Depressive disorder 7858 0437 F32.A zoloft 100 mg dailyvitam in d3 dailymonit or mood, consult 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 Patient should see endocrinol lise through [facility] after discharge from custodial facility.1 1.8 corrected [id number] VANGIE ANGEL [place] [address] 08/19/2024 10:32:29 08/20/2024 13:56:24 Dizziness 497957021 R42 add cbc and bmp tomorrowen courage PO fluidscons ider IVF if neededmoni tor bps [id number] VANGIE [place] [address] 08/28/2024 09:55:39 08/31/2024 14:13:31 Dizziness 643306156 R42 resolved Edema of l ower extremity 547605478 R60.0 BNP in range for patientace wraps daily, off qhs Hypercalcemia 68337424 E 83.52 elevated serum calcium levels dating back to spring 2022.Mildl y elevated inpatient and do not appear to be causing her any symptomsHe r PTH was elevated suggesting primary hyperparat hyroidism. Patient should see endocrinol ogprakash through [facility] after discharge from custodial facility.1 1.8 corrected Fracture o f proximal end of femur 510574944 S72.001A s/p pinning, site healedDC oxycodone 5 mg q 4 hours prn-not usingConti nue apap 650 mg q 6 hours prn COVID-19 318204482 U07.1 Recovered Essential hypertension 18095346 I10 cardizem 300 mg dailyavali de daily Hyperlipidemia 98792623 E78.5 lipitor 20 mg dailymonit or lipids outpt with PCP Gastroesop hageal reflux disease without esophagitis 468989999 K21.9 pepcid 20 mg BID Chronic ob structive pulmonary disease 76348020 J44.9 combivent QID prnencoura ge smoking cessation Pulmonary emphysema 8743 3001 J43.9 see aboveencou rage cessation Depressive disorder 8982 9443 F32.A zoloft 100 mg dailyvitam in d3 daily [id number] [facility] [address] [place] [address] 09/07/2024 07:41:45 09/08/2024 13:21:36 Closed fracture of hip 983030855 S72.001A s/p ORIFcontin ue lovenox 40 mg daily/dvt ppx for until 10/06conti nue tylenol and oxycodone prnPT/OT eval and TXfollow up with ortho in 2 weeksStapl es covered with dressing intact - not removed Essential hypertension 02856239 I10 meds held in acute care due to soft BPparamete rs to hold for SBP < 120continu e cardizem 300 mg Depressive disorder 2231 3987 F32.A Zoloft 100 mg daily Hypercalcemia 52411250 E 83.52 elevated serum calcium levels dating back to spring 2022.Mildl y elevated inpatient and do not appear to be causing her any symptomsHe r PTH was elevated suggesting primary hyperparat hyroidism. Patient should see endocrinol lise through [facility] after discharge from custodial facility.1 1.8 corrected Anemia fol lowing acute postoperative blood loss 4193738710 5446776 D62 surgery relatedhgb fell from 11.1 to 8.7did not require transfusio nmonitor hgb Hyperlipidemia 99160927 E78.5 lipitor 20 mg dailymonit or lipids outpt with PCP Gastroesop hageal reflux disease without esophagitis 149164063 K21.9 pepcid 20 mg BID Chronic ob structive pulmonary disease 65038285 J44.9 combivent QID prnencoura ge smoking cessation Asthma 115761677 J45.90 9 asymptomat ic; on combivent; History of deep vein thrombosis 539810300 Z86.718 after knee surgery 2000prior to fall not on anticoag due to active mobilityno w on 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 adding asa when lovenox is d/c Fall R29.6 PT/OTmaint ain safety Osteoarthritis 725569978 M19.90 continue tylenol prn [id number] Timur Beebe MD [address] [address] 09/08/2024 13:34:28 09/09/2024 12:17:01 Closed fracture of hip 633376834 S72.001A see HPIright hip fx s/p ORIFfollow ortho recs and update with concernsmo nitor for pain controlPT OT eval and treatloven ox for EVT prophylaxi s Essential hypertension 90011115 I10 cardizem 300 mg qdmonitor bp and need to titrate Depressive disorder 3548 9007 F33.8 zoloft 100 mg qdcontinue dmonitor mood Anemia fol lowing acute postoperative blood loss 3808071230 2195607 D62 no transfusio n in hospitalre peat cbc orderediro n studies prn Hyperlipidemia 70260549 E78.2 lipitor 20 mg qdcontinue d Gastroesop hageal reflux disease without esophagitis 698860146 K21.9 famotidine 20 mg bidmonitor for sx relief Chronic ob structive pulmonary disease 97693725 J41.1 continue out patient medication smonitor albuterol utilizatio nencourage 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 Fall R29.6 PT OT eval and treatmonit or fall risk and need for increased support in community Osteoarthritis 183307871 M15.0 controlled with prn tylenoladd ed to PMH Hypokalemia 51273398 E87 .6 now on KCl 40 meqs qdrepeat bmpmonitor lytes [id number] KIMBERLYN MERCEDES [address] [address] 09/17/2024 09:31:46 09/21/2024 12:45:13 Closed fracture of hip 184348682 S72.001A s/p ORIFcontin ue PT/OTconti nue lovenox 40 mg daily/dvt ppx for until 10/06con nue tylenol and oxycodone prnfollow up with ortho in 2 weeks 09/21/24 aples covered with dressing intact - not removed Essential hypertension 52768031 I10 BP stablecont inue cardizem 300 mg Depressive disorder 3548 9007 F32.A Zoloft 100 mg dailymood is good Hyperlipidemia 75866867 E78.5 lipitor 20 mg dailymonit or lipids outpt with PCP Gastroesop hageal reflux disease without esophagitis 771572290 K21.9 pepcid 20 mg BID Chronic ob structive pulmonary disease 75956218 J44.9 NO Increase WOBcombive nt QID prnencoura ge smoking cessation Fall R29.6 PT/OTmaint ain safety Fracture o f proximal end of femur 474419485 S72.001A s/p left proximal femur IM nail fixation 4cont inue PT/OT [id number] KIMBERLYN MERCEDES [address] [address] 09/21/2024 08:39:37 09/22/2024 11:47:04 Closed fracture of hip 776363343 S72.001A s/p ORIFcontin ue PT/OTconti nue lovenox 40 mg daily/dvt ppx for until 10/06conti nue tylenol and oxycodone prnfollow up with ortho in 2 weeks 09/21/24 aples covered with dressing intact - not removed Essential hypertension 19183393 I10 BP stablecont inue cardizem 300 mg Chronic ob structive pulmonary disease 98822781 J44.9 NO Increase WOBcombive nt QID prnencoura ge smoking cessation [id number] KIMBERLYN MERCEDES [address] [address] 10/01/2024 09:07:27 10/02/2024 10:23:31 Closed fracture of hip 789136731 S72.001A s/p ORIFcontin ue PT/OTconti nue lovenox 40 mg daily/dvt ppx for until 10/06conti nue tylenol and oxycodone prnfollow up with ortho in 2 weeks 09/21/24St aples covered with dressing intact - not removed Essential hypertension 25915332 I10 BP stablecont inue cardizem 300 mg Chronic ob structive pulmonary disease 09955059 J44.9 NO Increase WOBcombive nt QID prnencoura ge smoking cessation Acute hypokalemia 508266 03 E87.6 3.0not on diuretics , steroidsst art kcl 10 meq and recheck on 10/04 [id number] KIMBERLYN MERCEDES [address] [address] 10/05/2024 11:16:11 10/06/2024 11:11:03 Closed fracture of hip 782145876 S72.001A s/p ORIFcontin ue PT/OTconti nue lovenox 40 mg daily/dvt ppx for until 10/06conti nue tylenol and oxycodone prnfollow up with ortho in 2 weeks 09/21/24in cision healed Essential hypertension 75274129 I10 BP stablecont inue cardizem 300 mg Chronic ob structive pulmonary disease 97246831 J44.9 NO Increase WOBcombive nt QID prnencoura ge smoking cessation Acute hypokalemia 696863 03 E87.6 repleted po with kcl 10 meq improvemen t now noted 3.7? is decrease possible related to recent abx use she was on ciprofloxa jaden for UTIwill monitor K Pain of ri ght knee region [id number] 91549 M25.561 reports pain started after hip repairdesc ribed as cramping, pain with dorsiflexi onshe is concerned for ? blood clotthere is no swelling or point tenderness will ord ultrasound will order tramadol 50 mg Q6 prn until pending results. [id number] KIMBERLYN [facility] [address] [place] [address] [place] [address] 10/12/2024 12:11:08 10/15/2024 11:19:28 Closed fracture of hip 022438703 S72.001A s/p ORIFcontin ue PT/OTconti nue lovenox 40 mg daily/dvt ppx for until 10/06conti nue tylenol and oxycodone prnfollow up with ortho in 2 weeks 09/21/24in cision healed Essential hypertension 85488857 I10 BP stablecont inue cardizem 300 mg Chronic ob structive pulmonary disease 82494306 J44.9 NO Increase WOBcombive nt QID prnencoura ge smoking cessation Pain of ri ght knee region 0207952950 15662 M25.561 see hpiimaging negative for DVTreports pain started after hip repairdesc ribed as cramping, pain with dorsiflexi onshe is concerned for ? blood clotthere is no swelling or point tenderness Hypercalcemia 38765564 E 83.52 today 12.7elevat ed serum calcium levels dating back to spring 2022.Mildl y elevated inpatient and do not appear to be causing her any symptomsHe r PTH was elevated suggesting primary hyperparat hyroidism. refer to endocrinol lise through [facility] after discharge from custodial facilitydi scussed with nursing to hold calcium and vit D for now [id number] KIMBERLYN MERCEDES [address] [place] [address] 10/15/2024 08:36:48 10/16/2024 12:00:47 Closed fracture of hip [id number] S72.001A s/p ORIFcontin ue PT/OTconti nue lovenox 40 mg daily/dvt ppx for until 10/06conti nue tylenol and oxycodone prnincisio n healed Essential hypertension 91886542 I10 BP stablecont inue cardizem 300 mg Chronic ob structive pulmonary disease 06863907 J44.9 NO Increase WOBcombive nt QID prnencoura ge smoking cessation Pain of ri ght knee region 1363513734 79222 M25.561 see hpiimaging negative for DVTreports pain started after hip repairdesc ribed as cramping, pain with dorsiflexi onshe is concerned for ? blood clotthere is no swelling or point tenderness Hypercalcemia 96212527 E 83.52 123: 12.7elevat ed serum calcium levels dating back to spring 2022.Mildl y elevated do not appear to be causing her any symptomsHe r PTH was elevated suggesting primary hyperparat hyroidism. refer to endocrinol og through [facility] after discharge from custodial facilitydi scussed with nursing to hold calcium and vit D for nowmonitor for associated sx [id number] KIMBERLYN MERCEDES [address] [place] [address] 10/19/2024 10:14:51 10/20/2024 14:17:10 Closed fracture of hip 246871544 S72.001A s/p ORIFcontin ue PT/OTconti nue tylenol and oxycodone prnincisio n healed Essential hypertension 59050085 I10 BP stablecont ingayle cardizem 300 mg Chronic ob structive pulmonary disease 69855054 J44.9 NO Increase WOBcombive nt QID prnencoura ge smoking cessation Pain of ri ght knee region 7636656203 45330 M25.561 see hpiimaging negative for DVTreports pain started after hip repairdesc ribed as cramping, pain with dorsiflexi onshe is concerned for ? blood clotthere is no swelling or point tenderness Hypercalcemia 60715643 E 83.52 cistmsm17 9: 11.6elevat ed serum calcium levels dating back to spring 2022.Mildl y elevated do not appear to be causing her any symptomsHe r PTH was elevated suggesting primary hyperparat hyroidism. refer to endocrinol ogy through [facility] after discharge from custodial facilitydi scussed with nursing to hold calcium and vit D for nowmonitor for associated sx Hypokalemia 25275163 E87 .6 see HPI/suspec t medication inducedK+ 3.2replace now with 20 meq for 1 dosewill add daily kcl 10 meq and continue to monitor. [id number] [facility] [address] [place] [address] [place] [address] 10/22/2024 08:21:15 10/23/2024 13:25:04 Closed fracture of hip 852951588 S72.001A s/p ORIFcontin ue PT/OT- progressin g slowlycont inue tylenol and oxycodone prnincisio n healed Essential hypertension 86749135 I10 BP stablecont inue cardizem 300 mg Chronic ob structive pulmonary disease 75717185 J44.9 NO Increase WOBcombive nt QID prnencoura ge smoking cessation Pain of ri ght knee region 0236578793 09330 M25.561 imaging negative for DVTthere is no swelling or point tenderness will schedule apap 975 mg TID, pain seems to be interferin g with therapy endurance. discussed with patient and nursing. Hypercalcemia 09555093 E 83.52 vkkvsuf77/ 9: 11.6elevat ed serum calcium levels dating back to spring 2022.Mildl y elevated do not appear to be causing her any symptomsHe r PTH was elevated suggesting primary hyperparat hyroidism. refer to endocrinol lise through [facility] after discharge from custodial facilitydi scussed with nursing to hold calcium and vit D for nowmonitor for associated sx Hypokalemia 06087028 E87 .6 see HPI/suspec t medication inducedK+ 3.2replace now with 20 meq for 1 dosewill add daily kcl 10 meq and continue to monitor. [id number] KIMBERLYN MERCEDES [address] [place] [address] 10/26/2024 10:36:56 10/27/2024 12:05:26 Closed fracture of hip 042748199 S72.001A s/p ORIFcontin ue PT/OT- progressin g slowlycont inue tylenol and oxycodone prnincisio n healed Chronic ob structive pulmonary disease 53965195 J44.9 NO Increase WOBcombive nt QID prnencoura ge smoking cessation Pain of ri ght knee region 0521027726 29912 M25.561 imaging negative for DVTthere is no swelling or point tenderness continue apap 975 mg TID Hypokalemia 92003268 E87 .6 see HPI/suspec t medication inducedK+ 3.8continu e kcl 10 meq daily.[place] tor labs [id number] KIMBERLYN MERCEDES [address] [address] 11/02/2024 10:15:17 11/03/2024 09:53:07 Closed fracture of hip 591076691 S72.001A s/p ORIFcontin ue PT/OT- progressin g slowlycont inue tylenol and oxycodone prnincisio n healed Chronic ob structive pulmonary disease 86934016 J44.9 NO Increase WOBcombive nt QID prnencoura ge smoking cessation Dysuria 16447613 R30.0 patient room has strong urine odorUA / C&S pendingnur sing reports hygiene issues noted during straight cathincrea sed fluids encouraged . [id number] KIMBERLYN MERCEDES [address] [address] 11/05/2024 13:49:31 11/06/2024 12:22:28 Dysuria 28390110 R30.0 patient room has strong urine odornursin g reports hygiene issues noted during straight cathincrea sed fluids encouraged . Recurrent urinary tract infection 620710465 N39.0 see hpiC&S results shows sensitivit y to ceftriaxon ewill stop macrobid and start on ceftriaxon e 1 g qd for 3 daysdiscus sed with nursing [id number] KIMBERLYN MERCEDES [address] [address] 11/09/2024 13:20:09 11/18/2024 11:14:37 Recurrent urinary tract infection 718361116 N39.0 abx completedm onitor for reoccurenc ewater/ increased fluids encouraged [id number] KIMBERLYN MERCEDES [address] [address] 12/10/2024 15:22:50 12/14/2024 16:02:52 Left sided abdominal pain 294524330 R10.9 patient states that she has had this pain in the past and it has been intermitte nt and ongoing, she does not recall if she has seen GIdiscusse d with patient and nursingche ck labs cbc, CMP,straig ht cath for UA with c/sxray KUBconside r referral to GI if labs are non specific Dizziness 035068920 R42 BP 160's (could be related to pain)start meclizine 12.5 mg q 8 prnmonitor for resolution [id number] Timur Beebe MD [address] [address] 01/10/2025 12:58:13 01/11/2025 15:58:22 Fall R29.6 therapy followingm onitor fall risk and need for increased support in community vs need to stay LTC Essential hypertension 81562949 I10 cardizem 300 mg qdmonitor bp and need to titrate Gastroesop hageal reflux disease without esophagitis 714421611 K21.9 famotidine 20 mg bidmonitor for sx relief Asthenia 21639382 R53.1 continues to require assist with ADLsworkin g with therapypat ient goal is still home [id number] LILIA AVINA CNP [address] [address] 03/10/2025 10:41:17 03/12/2025 14:08:03 Asthenia 54319584 R53.1 continues to require assist with ADLsworkin g with therapyPT and OT, PRN.patien t goal is still home Fall R29.6 no new falls reportedth erapy followingm onitor fall risk and need for increased support in community vs need to stay LTC Essential hypertension 99351989 I10 BP stablecont inuecardiz em 300 mg qdmonitor bp and need to titrate Gastroesop hageal reflux disease without esophagitis 697380262 K21.9 stablefamo tidine 20 mg bidmonitor for sx relief [id number] KIMBERLYN MERCEDES [address] [address] 05/19/2025 05:49:03 05/21/2025 13:03:50 Asthenia 02905506 R53.1 continues to require assist with ADLsworkin g with therapyPT and OT, PRN. Fall R29.6 no new falls reportedth erapy followingm onitor fall risk and need for increased support in community vs need to stay LTC Essential hypertension 37679811 I10 BP stablecont inuecardiz em 300 mg qdmonitor bp and need to titrate Gastroesop hageal reflux disease without esophagitis 184652551 K21.9 stablefamo tidine 20 mg bidmonitor for sx relief Asthma 134857593 J45.90 9 asymptomat ic; on combivent; Chronic ob structive pulmonary disease 87765879 J44.9 NO Increase WOBcombive nt QID prnstable [...] 2 [place] [facility] [id number] [facility] 05/19/2025 1 [place]ICARE B[place] [employer] [facility] [id number] [facility] Notes Date Note Type Note Provider Name and Address Organization Details Recorded Time 11/09/2024 text/html ROS as noted in the HPI This is a 74 yr old femal patient seen for acute rounding visit. Patient is doing well, she is at her baseline in [facility]. There sre no acute nursing concerns. She Kaye completed abx therapy and is not experiencing any UTI sx at this time. KIMBERLYN MERCEDES [address], [address], [place], [address], [facility] - [facility] 11/18/2024 10:47:49 12/10/2024 text/html ROS as noted in the HPI Anabela is a 74 yr old female [...] no tenderness or distention. KIMBERLYN MERCEDES [address], [address], [place], [address], [facility] [facility] 12/10/2024 18:43:42 01/10/2025 text/html ROS as noted in the HPI Patient is a 74 yo female now [...] home with services Timur Beebe MD [address], [address], [place], [address], [facility] 01/10/2025 13:02:00 03/10/2025 text/html ROS as noted in the HPI Patient is a 74 yo female now [...] 55, high risk. LILIA AVINA CNP [address], [address], [place], [address], [facility] 03/10/2025 10:52:49 05/19/2025 text/html ROS as noted in the HPI 74 yo female now LTC resident seen for routine rounding visit. Patient was initially admit from hospital presenting after mechanical fall with right hip pain. Imaging positive for fracture, eval by ortho and underwent ORIF. Medically she has been stable, there has been no acute concerns. KIMBERLYN MERCEDES [address], [address], [place], [address], [facility] - [facility] 05/20/2025 18:46:38 OBGyn Episode No OBEpisode recorded.
[2025-06-07 06:24] LABS: Anion Gap 9 (12-20); Blood Urea Nitrogen 18 mg/dL (9-16); Calcium 10.6 mg/dL (8.4-10.2); Carbon Dioxide 29 mmol/L (22-29); Chloride 111 mmol/L (96-108); Estimated Glomerular Filt Rate > 60; Potassium 3.6 mmol/L (3.3-5.1); Sodium 145 mmol/L (135-145)
[2025-06-07 06:38] LABS: Hematocrit 35.2 % (37.0-47.0); Hemoglobin 11.7 g/dl (12.0-16.0); Imm Gran Abs Auto 0.02 X10*3/uL (0.00-0.03); Imm Gran Pct Auto 0.4 % (0.0-0.4); Lymphocytes Absolute Auto 1.8 X10*3/uL (1.2-4.9); Mean Corpuscular HGB Conc 33.2 g/dl (31.0-35.0); Mean Corpuscular Hemoglobin 34.9 pg (27.0-33.0); Mean Corpuscular Volume 105.1 fL (80.0-98.0); NRBC Abs Auto 0.000 X10*3/uL (0.0-0.012); NRBC Pct Auto 0.0 /100WBC (0.0-0.2); Platelet Count 136 X10*3/uL (160-400); Red Blood Count 3.35 X10*6/uL (4.20-5.50); White Blood Count 5.4 X10*3/uL (4.8-10.8)
== END 2025-06-07 06:12 | disposition home or self-care (01) ==
LOC: HO.MMNH3L 06:11
PROVIDERS: Visit Provider Family Medicine
DX: I10 Essential (primary) hypertension (principal); J44.9 Chronic obstructive pulmonary disease, unspecified; E78.5 Hyperlipidemia, unspecified
CPT/HCPCS: 36415; 80048; 85025

== ENCOUNTER 2025-06-08 13:07 | Outpatient (AMB) | payer MEDICARE, MEDICAID, SELFPAY ==
--- NOTE | 2025-06-08 13:17 | A.OFFVIS_ITS ---
Vital Signs 06/08/25 13:25 Height 5 ft 8 in Weight 223 lb BMI 33.9 BP 139/68 Blood Pressure Location Lt brachial Position Sitting Pulse 78 Pulse Oximetry (%) 95 Oxygen Delivery Method Room Air Intake Visit Reasons: [place] screening Intake Note: Patient new consult for 3rd pre Colonoscopy screening. 2 last one was in [place], [place]. Patient cc: frequency Abdominal pain, incontinence with soft stool, and some swallowing pain. 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 Patient is accompanied by daughter. She is currently residing in a correction following bilateral hip fracture in August secondary to a fall. She will be moving in with older daughter Jul 12. The patient reports experiencing chronic daily abdominal pain, which varies in intensity from mild to severe. The pain is typically located in the left mid- abdomen and occurs either before or after eating. It resolves on its own without intervention. She has been experiencing loose stools for the past year or longer, with increasing incontinence. The patient describes a pattern of constipation lasting 4-5 days, followed by episodes of diarrhea. She denies blood in her stools, nausea, or vomiting associated with the pain. The patient reports a little trouble swallowing today, but states this is not typical for her. The patient's last colonoscopy was in 2019, where 7 polyps were found, 4 of which were precancerous. She has canceled two previous follow-up appointments due to stomach pain. She denies any current heartburn symptoms and is taking famotidine for reflux management. The patient reports significant weight loss since entering the correction in August, estimating a loss of approximately 100 pounds, though the exact amount is unclear. The patient's mother had a history of Crohn's disease, colitis, and colon cance r. Her sister has Crohn's disease. She is currently on a heart-healthy diet at the correction but finds the food unpalatable. Patient denies: fever/chills, n/v, appetite changes, pyrosis, regurgita tion,dysphasia, unintentional wt loss, ab pain or melena/hematochezia. Social hx: -denies ETOH use -denies recreational drug use -former smoker, cessation 9 months ago - family hx as below -denies personal hx of CA -tolerated anesthesia in the past without difficulty. [facility] Medical History (Updated 06/08/25 @ 15:24 by Maura Cordero CNP) Weight loss Mild acid reflux Loose stools Abdominal pain Colon cancer screening Surgical History Hx of colonoscopy Family History Mother Colon cancer Diabetes Heart disease Crohn disease Maternal Grandfather Heart disease Sister Crohn disease Social History Household Members: Family Patient Tobacco Use Status: Current everyday Tobacco user Review of Systems Const Reports as per HPI ENT Reports as per HPI Card Reports as per HPI Resp Reports as per HPI GI Reports as per HPI Reports as per HPI Physical Exam Vital Signs: Last Vital Signs Pulse 78 06/08/25 13:25 BP 139/68 06/08/25 13:25 Pulse Ox 95 06/08/25 13:25 Oxygen Delivery Method Room Air 06/08/25 13:25 BMI result Body Mass Index 33.9 Const General: healthy appearing, no acute distress and well developed Nutritional Appearance: obese Orientation/consciousness: patient oriented x3 HEENT Head: Yes normal to inspection, Yes normocephalic and Yes atraumatic Face and sinus: Yes normal facial exam Eyes General: appearance normal, both eyes and all related structures Neck Neck: Yes normal visual inspection Resp Effort & Inspection: normal respiratory effort, able to speak in complete sentences, no tracheal deviation and symmetric chest movement Auscultation: clear to auscultation bilaterally Cardio Jugular venous distension: no JVD Rate: regular rate Rhythm: regular rhythm Heart sounds: S1 normal heart sound present, S2 normal heart sound present, no gallops and no murmurs GI Inspection: Yes normal to inspection, No distended and Yes obesity Palpation (GI): Soft to palpation, not firm, nontender and No hepatosplenomegaly present Auscultation: normal bowel sounds Neuro General: patient oriented x3 Gait exam (Neuro): Normal gait present Psych Appearance: grossly normal Mental Status: mental status grossly normal Speech and movement: Normal speech and movement present Affect: normal affect Attitude: cooperative Thought process: Normal thought process present Thought content: Normal thought content present Insight: Good insight present (Psych) Judgement: Good judgement present (Psych) Assessment & Plan Assessment & Plan (1) Colon cancer screening: Code(s): Z12.11 - Encounter for screening for malignant neoplasm of colon Category: Medical Plan: Due for polyp surveillance colonoscopy. Per referral documents last colonoscopy completed 2019 with findings of pre-cancers polyps. Procedure report nor pathology available at time of visit. Medications: -prescriptions for laxative tablets and PEG sent to pharmacy; instructions for Gatorade purchase and clear liquid diet given.. Patient educated on scheduling process, procedure preparation, including avoiding certain foods and ensuring clear liquid intake Advised on necessity for ride post-procedure due to sedation. (2) Loose stools: Code(s): R19.5 - Other fecal abnormalities Category: Medical Plan: Reports occasional constipation lasting 4-5 days followed by diarrhea, along with chronic ab pain. Family history significant for mother with Crohn's disease and colitis, and sister with Crohn's disease. Previous workup did not show inflammatory bowel disease. Differential diagnoses include constipation with diarrhea overlap, irritable bowel syndrome with constipation (IBS-C), inflammatory bowel disease (IBD), and celiac disease. Plan: -Continue current bowel regimen - Order comprehensive lab work including: - Complete blood count - Comprehensive metabolic panel - Vitamin B levels - Celiac disease screening - Order stool studies to rule out IBD - Schedule colonoscopy as above (3) Mild acid reflux: Code(s): K21.9 - Gastro-esophageal reflux disease without esophagitis Category: Medical Plan: Asymptomatic. Currently taking famotidine with good symptom control. - Continue famotidine as prescribed (4) Weight loss: Code(s): R63.4 - Abnormal weight loss Category: Medical Plan: Subjective reports of 100 lb weight loss since August 2024. . Current weight is 223 lbs. Unable to confirm exact amount of weight loss due to lack of objective data. If confirmed, this degree of weight loss is concerning and requires further evaluation. Plan: - Request weight trend data from correction staff - Advise correction provider to conduct urgent workup if significant weight loss is confirmed - Monitor weight at follow-up appointments Plan Follow-up after colonoscopy or sooner as needed Time: I spent a total of 45 minutes on the date of encounter which includes: Preparing to see the patient (reviewed previous documentation, test results and medical history) Performing a medically appropriate exam and/or evaluation Ordering medications, tests, and procedures Documenting clinical information in the health record Orders: Orders Comprehensive [place]. Panel Fast Today R10.9 - Unspecified abdominal pain, R19.5 - Other fecal abnormalities C Reactive Protein Today R10.9 - Unspecified abdominal pain Vitamin B12 and Folate Today R10.9 - Unspecified abdominal pain, R19.5 - Other fecal abnormalities Complete Blood Count Auto Diff Today R10.9 - Unspecified abdominal pain, R19.5 - Other fecal abnormalities Transglutaminase IgA Today R10.9 - Unspecified abdominal pain, R19.5 - Other fecal abnormalities Calprotectin, Fecal Today R10.9 - Unspecified abdominal pain, R19.5 - Other fecal abnormalities TSH reflex Free T4 Today R19.5 - Other fecal abnormalities Medications: New peg 3350-electrolytes 236-22.74-6.74 -5.86 gram until fecal effluent is clear 240 mL PO Q10M 4,000 mL 0RF bisacodyl (Dulcolax (bisacodyl)) Take four tablets pre colonoscopy instructions 20 mg (4 x 5 mg) PO ONCE 4 tabs 0RF 1 day Coding Level of Care Code New Pt New Pt Level 4 (94243) Patient Type New Diagnoses Colon cancer screening Z12.11 Loose stools R19.5 Mild acid reflux K21.9 Weight loss R63.4
[2025-06-08 13:25] VITALS: BP 139/68; PULSE 78; O2SAT 95; BMI 33.9
--- OUTSIDE RECORDS SUMMARY | 2025-06-08 13:53 | XMS_ITS | Encounter Summary ---
Author Organization [facility] Address [address] [facility] [address] [place] [address] Phone Care Team Providers Care Ceiling Cleaner Name Role Phone Chhaya Sosa NP Primary Care Provider [phone] Encounter Details Date Type Department Care Team (Late st Contact Info) Description 03/15/2023 Procedure Pass [facility], [facility] [address] [place] [address] Social History Tobacco Use Types Packs/Day Years [...] documented as of this encounter Care Teams Ceiling Cleaner Relationship Specialty Start Date End Date Chhaya Sosa NP [address] [place] [address] [email or web address] PCP - General Nurse Practitioner 02/05/23 documented as of this encounter Additional Source Comments The information contained in this document represents components of the legal health record. It is not the complete legal health record.[facility]
--- OUTSIDE RECORDS SUMMARY | 2025-06-08 13:53 | XMS_ITS | Clinical Summary ---
Author Organization [facility] [address] [facility] Address [address] [place] [address] Phone Care Team Providers Care Airline Lounge Receptionist Name Role Phone Saqib Lock MD Primary Care Provi amelia Medical History Medical History Date Comments Current every day smoker DX:Curr ent every day smoker Essential (primary) hypertension DX:Essential (primary) hypertension COPD (chronic obstructive pu lmonary disease) (CMS/HCC V24, CMS/HCC V28) DX:COPD (chronic o bstructive pulmonary disease) ([facility]) Depression DX:Depression Thyroid disease DX:Thyroid [...] Insurance MEDICAID - [place] MEDICARE Care Teams Airline Lounge Receptionist Relationship Specialty Start Date End Date Saqib Lock MD [address] [place], [place] PCP - General 10/30/22
== END 2025-06-08 14:01 | disposition home or self-care (01) ==
LOC: HO.HGI 13:07
PROVIDERS: PCP Family Medicine; Visit Provider Nurse Practitioner Family
DX: R63.4 Abnormal weight loss (principal); Z01.818 Encounter for other preprocedural examination; Z12.11 Encounter for screening for malignant neoplasm of colon; R19.5 Other fecal abnormalities; K21.9 Gastro-esophageal reflux disease without esophagitis
CPT/HCPCS: 99204

== ENCOUNTER → 2025-06-08 13:07 | Outpatient (BNVA) | payer MEDICARE, MEDICAID, SELFPAY | PROVIDERS: PCP Family Medicine; Visit Provider Nurse Practitioner Family | DX: Z12.11 Encounter for screening for malignant neoplasm of colon (principal); R19.5 Other fecal abnormalities; K21.9 Gastro-esophageal reflux disease without esophagitis; R63.4 Abnormal weight loss | CPT/HCPCS: 99202 ==

== ENCOUNTER 2025-06-14 06:56 | Outpatient (REF) | payer MEDICARE, MEDICAID, SELFPAY ==
[2025-06-14 06:11] LABS: MANUAL DIFF FLAG NO
--- OUTSIDE RECORDS SUMMARY | 2025-06-14 06:59 | XMS_ITS | Clinical Summary ---
Author Organization [facility] [address] [facility] Address [address] [place] [address] Phone Care Team Providers Care Assurance Officer Name Role Phone Saqib Lock MD Primary Care Provi amelia Medical History Medical History Date Comments Current every day smoker DX:Curr ent every day smoker Essential (primary) hypertension DX:Essential (primary) hypertension COPD (chronic obstructive pu lmonary disease) (CMS/HCC V24, CMS/HCC V28) DX:COPD (chronic o bstructive pulmonary disease) ([facility]) Depression DX:Depression Thyroid disease DX:Thyroid disea se [...] Insurance MED[place] - [place] MEDICARE Care Teams Assurance Officer Relationship Specialty Start Date End Date Saqib Lock MD [address] [place], [place] PCP - General 10/30/22
--- OUTSIDE RECORDS SUMMARY | 2025-06-14 06:59 | XMS_ITS | Encounter Summary ---
Author Organization [facility] Address [address] [facility] [address] [place] [address] Phone Care Team Providers Care Equipment Monitor Phototypesetting Name Role Phone Chhaya Sosa NP Primary Care Provider [phone] Encounter Details Date Type Department Care Team (Late st Contact Info) Description 03/15/2023 Procedure Pass [facility], [facility] [address] [place] [address] Social History Tobacco Use Types Packs/Day Years [...] documented as of this encounter Care Teams Equipment Monitor Phototypesetting Relationship Specialty Start Date End Date Chhaya Sosa NP [address] [place] [address] [email or web address] PCP - General Nurse Practitioner 02/05/23 documented as of this encounter Additional Source Comments The information contained in this document represents components of the legal health record. It is not the complete legal health record.[facility]
[2025-06-14 07:04] LABS: Hematocrit 38.3 % (37.0-47.0); Hemoglobin 13.0 g/dl (12.0-16.0); Imm Gran Abs Auto 0.02 X10*3/uL (0.00-0.03); Imm Gran Pct Auto 0.3 % (0.0-0.4); Lymphocytes Absolute Auto 2.3 X10*3/uL (1.2-4.9); Mean Corpuscular HGB Conc 33.9 g/dl (31.0-35.0); Mean Corpuscular Hemoglobin 34.9 pg (27.0-33.0); Mean Corpuscular Volume 103.0 fL (80.0-98.0); NRBC Abs Auto 0.000 X10*3/uL (0.0-0.012); NRBC Pct Auto 0.0 /100WBC (0.0-0.2); Platelet Count 134 X10*3/uL (160-400); Red Blood Count 3.72 X10*6/uL (4.20-5.50); White Blood Count 5.9 X10*3/uL (4.8-10.8)
[2025-06-14 07:11] LABS: Anion Gap 12 (12-20); Blood Urea Nitrogen 23 mg/dL (9-16); Calcium 11.2 mg/dL (8.4-10.2); Carbon Dioxide 28 mmol/L (22-29); Chloride 109 mmol/L (96-108); Estimated Glomerular Filt Rate > 60; Potassium 3.6 mmol/L (3.3-5.1); Sodium 145 mmol/L (135-145)
[2025-06-14 12:51] LABS: Folate 7.4 ng/mL (> or = 4.0); Vitamin B12 215 pg/mL (200-900)
== END 2025-06-14 06:57 | disposition home or self-care (01) ==
LOC: HO.MMNH3L 06:56
PROVIDERS: Nurse Practitioner Family; Visit Provider Family Medicine
DX: R19.5 Other fecal abnormalities (principal); R10.9 Unspecified abdominal pain; I10 Essential (primary) hypertension; J44.9 Chronic obstructive pulmonary disease, unspecified; E78.5 Hyperlipidemia, unspecified
CPT/HCPCS: 36415; 80048; 82607; 82746; 84443; 85025; 86140; 86364

== ENCOUNTER 2025-06-16 | Outpatient (REF) | payer MEDICARE, MEDICAID, SELFPAY ==
[2025-06-23 20:59] LABS: Calprotectin, Fecal 146 mcg/g
== END 2025-06-16 00:01 | disposition home or self-care (01) ==
LOC: HO.MMNH3L
PROVIDERS: Visit Provider Student in an Organized Health Care Education/Training Program
DX: R19.5 Other fecal abnormalities (principal); R10.9 Unspecified abdominal pain
CPT/HCPCS: 83993

== ENCOUNTER 2025-06-21 06:36 | Outpatient (REF) | payer MEDICARE, MEDICAID, SELFPAY ==
[2025-06-21 06:29] LABS: MANUAL DIFF FLAG NO
--- OUTSIDE RECORDS SUMMARY | 2025-06-21 06:37 | XMS_ITS | Clinical Summary ---
Author Organization [facility] [address] [facility] Address [address] [place] [address] Phone Care Team Providers Care Wheel Cleaner Name Role Phone Saqib Lock MD Primary Care Provi amelia Medical History Medical History Date Comments Current every day smoker DX:Curr ent every day smoker Essential (primary) hypertension DX:Essential (primary) hypertension COPD (chronic obstructive pu lmonary disease) (CMS/HCC V24, CMS/HCC V28) DX:COPD (chronic o bstructive pulmonary disease) ([facility]) Depression DX:Depression Thyroid disease DX:Thyroid [...] Insurance [place] - [place] MEDICARE Care Teams Wheel Cleaner Relationship Specialty Start Date End Date Saqib Lock MD [address] [place], [place] PCP - General 10/30/22
--- OUTSIDE RECORDS SUMMARY | 2025-06-21 06:37 | XMS_ITS | Encounter Summary ---
Author Organization [facility] Address [address] [facility] [address] [place] [address] Phone Care Team Providers Care Cooking Teacher Name Role Phone Chhaya Sosa NP Primary Care Provider [phone] Encounter Details Date Type Department Care Team (Late st Contact Info) Description 03/15/2023 Procedure Pass [facility], [facility] [address] [place] [address] Social History Tobacco Use Types Packs/Day Years [...] documented as of this encounter Care Teams Cooking Teacher Relationship Specialty Start Date End Date Chhaya Sosa NP [address] [place] [address] [email or web address] PCP - General Nurse Practitioner 02/05/23 documented as of this encounter Additional Source Comments The information contained in this document represents components of the legal health record. It is not the complete legal health record.[facility]
[2025-06-21 07:02] LABS: Hematocrit 36.8 % (37.0-47.0); Hemoglobin 12.3 g/dl (12.0-16.0); Imm Gran Abs Auto 0.01 X10*3/uL (0.00-0.03); Imm Gran Pct Auto 0.2 % (0.0-0.4); Lymphocytes Absolute Auto 2.2 X10*3/uL (1.2-4.9); Mean Corpuscular HGB Conc 33.4 g/dl (31.0-35.0); Mean Corpuscular Hemoglobin 34.6 pg (27.0-33.0); Mean Corpuscular Volume 103.7 fL (80.0-98.0); NRBC Abs Auto 0.000 X10*3/uL (0.0-0.012); NRBC Pct Auto 0.0 /100WBC (0.0-0.2); Platelet Count 142 X10*3/uL (160-400); Red Blood Count 3.55 X10*6/uL (4.20-5.50); White Blood Count 5.6 X10*3/uL (4.8-10.8)
[2025-06-21 07:30] LABS: Anion Gap 10 (12-20); Blood Urea Nitrogen 19 mg/dL (9-16); Calcium 11.0 mg/dL (8.4-10.2); Carbon Dioxide 31 mmol/L (22-29); Chloride 108 mmol/L (96-108); Estimated Glomerular Filt Rate > 60; Potassium 3.6 mmol/L (3.3-5.1); Sodium 145 mmol/L (135-145)
== END 2025-06-21 06:37 | disposition home or self-care (01) ==
LOC: HO.MMNH3L 06:36
PROVIDERS: Visit Provider Family Medicine
DX: I10 Essential (primary) hypertension (principal); J44.9 Chronic obstructive pulmonary disease, unspecified; E78.5 Hyperlipidemia, unspecified
CPT/HCPCS: 36415; 80048; 85025

== ENCOUNTER 2025-06-28 06:08 | Outpatient (REF) | payer MEDICARE, MEDICAID, SELFPAY ==
[2025-06-28 06:00] LABS: MANUAL DIFF FLAG NO
--- OUTSIDE RECORDS SUMMARY | 2025-06-28 06:10 | XMS_ITS | Clinical Summary ---
Author Organization [facility] [address] [facility] Address [address] [place] [address] Phone Care Team Providers Care Director Of Sports Performance Name Role Phone Saqib Lock MD Primary Care Provi amelia Medical History Medical History Date Comments Current every day smoker DX:Curr ent every day smoker Essential (primary) hypertension DX:Essential (primary) hypertension COPD (chronic obstructive pu lmonary disease) (CMS/HCC V24, CMS/HCC V28) DX:COPD (chronic o bstructive pulmonary disease) [facility]) Depression DX:Depression Thyroid disease DX:Thyroid disea se [...] Insurance [place] - [place] Care Teams Director Of Sports Performance Relationship Specialty Start Date End Date Saqib Lock MD [address] [place], [place] PCP - General 10/30/22
--- OUTSIDE RECORDS SUMMARY | 2025-06-28 06:10 | XMS_ITS | Encounter Summary ---
Author Organization [facility] Address [address] [facility] [address] [place] [address] Phone Care Team Providers Care Perianesthesia Nurse Name Role Phone Chhaya Sosa NP Primary Care Provider Encounter Details Date Type Department Care Team (Late st Contact Info) Description 03/15/2023 Procedure Pass [facility], [facility] [address] [place] [address] Social History Tobacco Use Types Packs/Day Years [...] documented as of this encounter Care Teams Perianesthesia Nurse Relationship Specialty Start Date End Date Chhaya Sosa NP [address] [place] [address] [email or web address] PCP - General Nurse Practitioner 02/05/23 documented as of this encounter Additional Source Comments The information contained in this document represents components of the legal health record. It is not the complete legal health record.[facility]
[2025-06-28 06:44] LABS: Hematocrit 37.9 % (37.0-47.0); Hemoglobin 12.4 g/dl (12.0-16.0); Imm Gran Abs Auto 0.02 X10*3/uL (0.00-0.03); Imm Gran Pct Auto 0.3 % (0.0-0.4); Lymphocytes Absolute Auto 2.1 X10*3/uL (1.2-4.9); Mean Corpuscular HGB Conc 32.7 g/dl (31.0-35.0); Mean Corpuscular Hemoglobin 33.7 pg (27.0-33.0); Mean Corpuscular Volume 103.0 fL (80.0-98.0); NRBC Abs Auto 0.000 X10*3/uL (0.0-0.012); NRBC Pct Auto 0.0 /100WBC (0.0-0.2); Platelet Count 143 X10*3/uL (160-400); Red Blood Count 3.68 X10*6/uL (4.20-5.50); White Blood Count 6.1 X10*3/uL (4.8-10.8)
[2025-06-28 07:08] LABS: HDL Cholesterol 38 mg/dL (>40); Triglycerides 49 mg/dL (<150)
[2025-06-28 07:17] LABS: Anion Gap 11 (12-20); Blood Urea Nitrogen 20 mg/dL (9-16); Calcium 11.2 mg/dL (8.4-10.2); Carbon Dioxide 30 mmol/L (22-29); Chloride 108 mmol/L (96-108); Estimated Glomerular Filt Rate > 60; Potassium 3.6 mmol/L (3.3-5.1); Sodium 145 mmol/L (135-145)
== END 2025-06-28 06:09 | disposition home or self-care (01) ==
LOC: HO.MMNH3L 06:08
PROVIDERS: Visit Provider Family Medicine
DX: I10 Essential (primary) hypertension (principal); J44.9 Chronic obstructive pulmonary disease, unspecified; E78.5 Hyperlipidemia, unspecified
CPT/HCPCS: 36415; 80048; 83718; 83721; 84478; 85025

== ENCOUNTER 2025-07-05 | Outpatient (REF) | payer MEDICARE, MEDICAID, SELFPAY ==
[2025-07-05 05:58] LABS: MANUAL DIFF FLAG NO
[2025-07-05 06:19] LABS: Anion Gap 13 (12-20); Blood Urea Nitrogen 18 mg/dL (9-16); Calcium 10.9 mg/dL (8.4-10.2); Carbon Dioxide 29 mmol/L (22-29); Chloride 106 mmol/L (96-108); Estimated Glomerular Filt Rate > 60; Potassium 3.3 mmol/L (3.3-5.1); Sodium 145 mmol/L (135-145)
[2025-07-05 06:55] LABS: Hematocrit 36.6 % (37.0-47.0); Hemoglobin 12.4 g/dl (12.0-16.0); Imm Gran Abs Auto 0.02 X10*3/uL (0.00-0.03); Imm Gran Pct Auto 0.4 % (0.0-0.4); Lymphocytes Absolute Auto 1.9 X10*3/uL (1.2-4.9); Mean Corpuscular HGB Conc 33.9 g/dl (31.0-35.0); Mean Corpuscular Hemoglobin 34.7 pg (27.0-33.0); Mean Corpuscular Volume 102.5 fL (80.0-98.0); NRBC Abs Auto 0.000 X10*3/uL (0.0-0.012); NRBC Pct Auto 0.0 /100WBC (0.0-0.2); Platelet Count 148 X10*3/uL (160-400); Red Blood Count 3.57 X10*6/uL (4.20-5.50); White Blood Count 5.2 X10*3/uL (4.8-10.8)
== END 2025-07-05 00:01 | disposition home or self-care (01) ==
LOC: HO.MMNH3L
PROVIDERS: Visit Provider Family Medicine
DX: I10 Essential (primary) hypertension (principal); E78.5 Hyperlipidemia, unspecified; J44.9 Chronic obstructive pulmonary disease, unspecified
CPT/HCPCS: 36415; 80048; 85025

== ENCOUNTER 2025-07-13 06:26 | Outpatient (REF) | payer MEDICARE, MEDICAID, SELFPAY ==
--- OUTSIDE RECORDS SUMMARY | 2020-11-15 18:21 | XMS_ITS | Encounter Summary ---
Author Organization [facility] Address [address] [place] [phone] Phone Care Team Providers Care Social Welfare Clerk Name Role Phone Marily Lock MD Primary Care Prov ider Encounter Details Date Type Department Care Team (Late st Contact Info) Description 11/15/2020 5:21 PM EST Hospital Encounter [facility] [address] [place] [phone] Margoth Pan CNP [address] [place] [phone] [email or web address] Social History Tobacco Use Types Packs/Day Years [...] 9:49 AM EDT Jovanny Lazaro RN * [place] Suicide Severity Rating Scale (Screener/Recent Self-Report) Question [...] ofthe distal radial metaphysis. Margoth Serrano Viviane ARTIST'S MANAGER IMG XR UPPER EXTREMITY Roz l Result documented in this encounter Visit Diagnoses Not on filedocumented in this encounter Additional Health Concerns Infection Onset Date Last Indicated Resolved Time CDiff-Risk 09/04/2024 09/04/2024 09/05/2024 2:50 PM EDT documented as of this encounter Care Teams Social Welfare Clerk Relationship Specialty Start Date End Date Marily Lock MD [address] [place] [address] [phone] [email or web address] PCP - General Family Medicine 12/21/19 02/04/23 documented as of this encounter Additional Source Comments The information contained in this document represents components of the legal health record. It is not the complete legal health record.[facility]
--- OUTSIDE RECORDS SUMMARY | 2020-11-15 18:21 | XMS_ITS | Encounter Summary ---
Author Organization [facility] Address [address] [facility] [facility] [address] [place] [address] Phone Care Team Providers Care Train Director Name Role Phone Marily Lock MD Primary Care Prov ider Encounter Details Date Type Department Care Team (Late st Contact Info) Description 11/15/2020 5:21 PM EST Hospital Encounter [facility] [address] [place] [address] Margoth Pan CNP [address] [place] [address] [email or web address] Social History Tobacco Use Types Packs/Day Years [...] 9:49 AM EDT Jovanny Lazaro RN * [place] Suicide Severity Rating Scale (Screener/Recent Self-Report) Question [...] fracture, CT can be considered. Margoth Pan NETWORK DESKTOP SUPPORT SPECIALIST IMG XR CHEST Final Resul t documented in this encounter Visit Diagnoses Not on filedocumented in this encounter Additional Health Concerns Infection Onset Date Last Indicated Resolved Time CDiff-Risk 09/04/2024 09/04/2024 09/05/2024 2:50 PM EDT documented as of this encounter Care Teams Train Director Relationship Specialty Start Date End Date Marily Lock MD [address] [place] [phone] [email or web address] PCP - General Family Medicine 12/21/19 02/04/23 documented as of this encounter Additional Source Comments The information contained in this document represents components of the legal health record. It is not the complete legal health record.[facility]
--- OUTSIDE RECORDS SUMMARY | 2023-01-25 16:24 | XMS_ITS | Encounter Summary ---
Author Organization [facility] Address [address] [place] [address] Phone Care Team Providers Care Produce Specialist Name Role Phone Marily Lock MD Primary Care Prov ider Encounter Details Date Type Department Care Team (Late st Contact Info) Description 01/25/2023 4:24 PM EDT Hospital Encounter [facility] [address] [place] [address] Margoth Pan CNP [address] [place] [address] [id number] Social History Tobacco Use Types Packs/Day Years [...] your housing situation today? I have kaitybrittany mayo 08/31/2024 How many times have you [...] 9:49 AM EDT Jovanny Lazaro RN * [place] Suicide Severity Rating Scale (Screener/Recent Self-Report) Question [...] change. Severe medial tibiofemoral compartment narrowing and hjxunocs-dw-wmilvy lateral tibiofemoral compartment narrowing. Mild patellofemoral compartment narrowing with lateral patellar subluxation. Bulky tricompartmental osteophytes. Chondrocalcinosis. Wqaej-yb-hrbdjmfq effusion. 1.8 cm dystrophic calcification along the posterior knee soft tissues, chronic in appearance. Procedure Note Shy Nuno MD - 01/25/2023 XR KNEE 4 OR MORE VIEWS (LEFT) COMPARISON: KNEE, BILATERAL FINDINGS: Left Knee: Cortical step-off along the proximal fibula. Minimal lateralsubluxation of the tibia in relation to the femur in the setting ofdegenerative change. Severe medial tibiofemoral compartment narrowing emepqomylts-xn-krpalm lateral tibiofemoral compartment narrowing. Mildpatellofemoral compartment narrowing with lateral patellar subluxation.Bulky tricompartmental osteophytes. Chondrocalcinosis. Cqpih-ym-mcivpyngpyytkhrs. 1.8 cm dystrophic calcification along the posterior knee softtissues, chronic in appearance. IMPRESSION: 1. Cortical step-off along the proximal fibula, likely representing aminimally impacted proximal fibular fracture. Correlation with pointtenderness. 2. 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 3. Chondrocalcinosis. Margoth Pan BOOTH OPERATOR IMG XR LOWER EXTREMITY Roz l Result documented in this encounter Visit Diagnoses Not on filedocumented in this encounter Additional Health Concerns Infection Onset Date Last Indicated Resolved Time CDiff-Risk 09/04/2024 09/04/2024 09/05/2024 2:50 PM EDT documented as of this encounter Care Teams Produce Specialist Relationship Specialty Start Date End Date Marily Lock MD [address] [place] [phone] [email or web address] PCP - General Family Medicine 12/21/19 02/04/23 documented as of this encounter Additional Source Comments The information contained in this document represents components of the legal health record. It is not the complete legal health record.[facility]
[2025-07-13 06:11] LABS: MANUAL DIFF FLAG NO
[2025-07-13 06:24] LABS: Hematocrit 36.8 % (37.0-47.0); Hemoglobin 12.6 g/dl (12.0-16.0); Imm Gran Abs Auto 0.02 X10*3/uL (0.00-0.03); Imm Gran Pct Auto 0.3 % (0.0-0.4); Lymphocytes Absolute Auto 1.9 X10*3/uL (1.2-4.9); Mean Corpuscular HGB Conc 34.2 g/dl (31.0-35.0); Mean Corpuscular Hemoglobin 34.9 pg (27.0-33.0); Mean Corpuscular Volume 101.9 fL (80.0-98.0); NRBC Abs Auto 0.000 X10*3/uL (0.0-0.012); NRBC Pct Auto 0.0 /100WBC (0.0-0.2); Platelet Count 160 X10*3/uL (160-400); Red Blood Count 3.61 X10*6/uL (4.20-5.50); White Blood Count 6.0 X10*3/uL (4.8-10.8)
--- OUTSIDE RECORDS SUMMARY | 2025-07-13 06:33 | XMS_ITS | Clinical Summary ---
Author Organization [facility] [address] [facility] Address [address] [place] [address] Phone Care Team Providers Care Bench Hand Machine Name Role Phone Saqib Lock MD Primary Care Provi amelia Medical History Medical History Date Comments Current every day smoker DX:Curr ent every day smoker Essential (primary) hypertension DX:Essential (primary) hypertension COPD (chronic obstructive pu lmonary disease) (CMS/HCC V24, CMS/HCC V28) DX:COPD (chronic o bstructive pulmonary disease) ([facility]) Depression DX:Depression Thyroid disease DX:Thyroid [...] Insurance [place] Care Teams Bench Hand Machine Relationship Specialty Start Date End Date Saqib Lock MD [address] [place], [place] PCP - General 10/30/22
--- OUTSIDE RECORDS SUMMARY | 2025-07-13 06:33 | XMS_ITS | Encounter Summary ---
Author Organization [facility] Address [address] [place] [address] Phone Care Team Providers Care Comic Artist Name Role Phone Chhaya Sosa NP Primary Care Provider [phone] Reason for Referral * Physical Therapy (Routine) - Closed Specialty Diagnoses / Procedures Referred By Antelmo lopez Referred To Contact Physical Therapy Diagnoses Encounter for rehabilitation Chhaya Sosa NP [address] [place] [address] Phone: tel: fax: mailto:[email or web address] [facility] [address] [place] [address] Phone: tel: Referral ID Status Reason Start Date Expiration Date Visits Re quested Visits Authorized [id number] Closed 04/23/2024 04/23/2025 1 1 Encounter Details Date Type Department Care Team (Late st Contact Info) Description 04/23/2024 Transcribe Orders [facility] [address] [place] [address] Chhaya Sosa NP [address] [place] [address] [email or web address] Encounter for rehabilitation (Primary Dx) Social History Tobacco Use Types Packs/Day Years [...] on file 03/08/2023 No 03/08/2023 No 03/08/2023 Digital Access Answer Date Recorded No 04/06/2023 No 04/06/2023 Reliable internet access at home? Not on file 04/06/2023 Device with a working camera? Not on file Comments No Sex and Gender Information Value Date Recorded Sex Assigned at Female 02/06/2023 2:13 PM EDT Legal Sex Female 10:02 PM EDT Gender Identity Female 02/06/2023 2:13 PM EDT Sexual Orientation Not on file documented as of this encounter Plan of Treatment Scheduled Referrals Name Type Priority Associated Diagnoses Orde r Schedule Ambulatory referral to [facility] Physical Therapy Outpatient Referral Routine Encounter for rehabilitation Ordered: 04/23/2024 documented as of this encounter Visit Diagnoses Diagnosis Encounter for rehabilitation- Primary documented in this encounter Additional Health Concerns Infection Onset Date Last Indicated Resolved Time CDiff-Risk 09/04/2024 09/04/2024 09/05/2024 2:50 PM EDT documented as of this encounter Care Teams Comic Artist Relationship Specialty Start Date End Date Chhaya Sosa NP [address] [place] [address] [email or web address] PCP - General Nurse Practitioner 02/05/23 documented as of this encounter Additional Source Comments The information contained in this document represents components of the legal health record. It is not the complete legal health record.[facility]
--- OUTSIDE RECORDS SUMMARY | 2025-07-13 06:33 | XMS_ITS | Clinical Summary ---
Author Organization [facility] Address [address] [place] [address] Phone Care Team Providers Care Cartoon Artist Name Role Phone Chhaya Sosa NP Primary Care Provider [phone] Allergies No known active allergies Medications sertraline (ZOLOFT) 100 MG tablet Take 1 tablet by mouth daily. 0 Active atorvastatin (LIPITOR) 20 MG tablet Take 20 mg by mouth daily. 9 Active ipratropium-albut Lola (COMBIVENT RESPIMAT) 20-100 mcg/actuation Mist Inhale 1 puff into the lungs 4 (four) times a day as needed (SOB). 9 Active cholecalciferol (VITAMIN D3) 2,000 unit capsule Take 1 capsule by mouth every morning. 4 Active enoxaparin (LOVENOX) 40 mg/0.4 mL Syrg subcutaneous syringe Inject 0.4 mL (40 mg total) under the skin daily. For 32 days 4 Active calcium citrate-vitamin D3 315 mg-6.25 mcg (250 unit) per tablet Take 1 tablet by mouth daily. Active olmesartan-hydroC HLOROthiazide (BENICAR HCT) 20-12.5 mg per tablet Take 2 tablets by mouth daily. Can resume once SBP > 120 4 Active dilTIAZem (TIAZAC) 300 MG 24 hr capsule Take 1 capsule (300 mg total) by mouth daily. Can resume once SBP > 120 4 Active acetaminophen (TYLENOL) 325 mg tablet Take 2 tablets (650 mg total) by mouth every 6 (six) hours as needed. 4 Active oxyCODONE 5 MG immediate release tablet Take 1 tablet (5 mg total) by mouth every 6 (six) hours as needed. Partial fill ok 5 tablet 4 Active Active Problems Problem Noted Date Diagnosed Date ABLA (acute blood loss anemia) 09/03/2024 Assessment & Plan (09/03/2024 8:56 PM EDT): 2g drop in Hgb this morning, likely from the surgery Will repeat in AM, transfuse for Hgb < 7 Closed comminuted intertroch anteric fracture of proximal end of right femur 09/02/2024 Leukocytosis 08/31/2024 Assessment & Plan (09/01/2024 9:36 PM EDT): Mild Likely reactive, she is without fevers or specific complaint other than her presenting issues. Continue to monitor - now normal without antibiotics. Chest discomfort 08/31/2024 Assessment & Plan (09/05/2024 7:38 AM EDT): NO complaint of CP today. -EKG reviewed from 10 am 08/31, inferior wall t wave inversions present. Trops flat. CXR w/o abnl findings -rpt ecg and resume acid suppression for sx of reflux Closed displaced intertrochanteric fracture of l eft femur 08/27/2024 Hypercalcemia 07/16/2024 Assessment & Plan (09/04/2024 12:23 PM EDT): Very mild, no symptoms. Chronic dating back to 2022. PTH was elevated here suggesting primary hyperparathyroidism, pt had been referred to endocrinology, unclear if she went as she was just recently dc from rehab. Improved with gentle hydration. -Continue to monitor Assessment & Plan (07/16/2024 10:27 AM EDT): Several lab readings showing elevated calcium dating back to spring 2022. PTH is elevated, suspect primary hyperparathyroid. No obvious symptoms. Will have PCP refer to [place] [facility] [place] Hip fracture 07/14/2024 Assessment & Plan (09/04/2024 12:22 PM EDT): She presented after a mechanical fall was noted to have a right hip fracture. Of note, in July 2024 she sustained a left hip fracture had surgical follow-up Dr. Corley we have been discharged to rehab. Imaging at the time of her readmission showed a comminuted right femoral trochanteric fracture with mild varus circulation s/p Right femur IM nail repair of hip fracture 09/[address] Corley. POD#2 Hemoglobin dropped slightly postop but is stable at 8. She is requiring 1 to 2 L of oxygen but otherwise has no complaints. -Pain controlled with Tylenol -PT/OT ordered -lovenox 30 mg SQ BID -will need STR at discharge, case management is working on this, family would like to try for acute rehab if possible -Strict BP med parameters for holding Assessment & Plan (07/16/2024 10:24 AM EDT): PO Day 1 IM nail L with Dr Corley. No pain at rest, willing to work with PT OT, per ortho WBAT. DW Dr Corley, surgery went well, 200 cc EBL. He agrees with lovenox for DVT prophylaxis in this pt as she had a DVT after knee surgery in the past. Renal function is fine, platelets are wnl. Likely SNF, dw pt and daughter, Jocelin by phone. Will update CM with preferences. Labs stable. Hypertension 07/14/2024 Assessment & Plan (09/04/2024 12:23 PM EDT): Blood pressure on the low side today, -Strict holding parameters for meds Assessment & Plan (07/16/2024 10:24 AM EDT): Continue diltiazem. Called [facility]. Pt is prescribed irbesrtan/HCTZ 150/12.5, last picked up in April for 90 days. Will order. Chronic obstructive pulmonary disease 07/14/2024 Assessment & Plan (08/31/2024 2:32 PM EDT): -No apparent exacerbation -uses Combivent prn. -O2 to keep sats 90-94 -recently quit smoking Assessment & Plan (07/16/2024 10:22 AM EDT): Continue Combivent as needed for shortness of breath/wheezing. Anabela reports not recalling the last time she required this medication. She denies wheeze, SOB or SALDIVAR at baseline. Post op, should have aggressive pulmoary toilet with OOB, incentive spirometry, and we can consider mucolytics and bronchodilators if needed. So far she is feeling well, exam is wnl. Depression 07/14/2024 Assessment & Plan (08/31/2024 2:32 PM EDT): Ct zoloft Assessment & Plan (07/14/2024 5:39 PM EDT): Continue sertraline Hyperlipidemia 07/14/2024 Assessment & Plan (08/31/2024 2:32 PM EDT): Cont lipitor. Assessment & Plan (07/14/2024 5:40 PM EDT): Continue statin Nicotine dependence 07/14/2024 Assessment & Plan (07/16/2024 10:25 AM EDT): Heavy smoker per daughter. NTR as needed. Resolved Problems Problem Noted Date Diagnosed Date Resolved Date Primary osteoarthritis of left knee 11/15/2020 11/15/2020 Social History Tobacco Use Types Packs/Day Years Used Date Smoking Tobacco: Every Day Cigarettes Smokeless Tobacco: Never Tobacco Cessation:Ready to Q uit: Not Asked; Counseling Given: Not Answered Comments:[facility]'t smoke at [facility] currently Alcohol [...] PM EDT Sexual Orientation Not on file Last Filed Vital Signs Vital Sign Reading Time Taken Comments Blood Pressure 99/59 09/05/2024 3:03 PM EDT Pulse 76 09/05/2024 3:03 PM EDT Temperature 36.7 C (98.1 F) 09/05/2024 3:03 PM EDT Respiratory Rate 18 09/05/2024 3:03 PM EDT Oxygen Saturation 92% 09/05/2024 3:03 PM EDT Inhaled Oxygen Concentration - - Weight 108.9 kg (240 lb) 08/31/2024 10:32 AM EDT Height 172.7 cm (5' 8 ) 08/31/2024 10:32 AM EDT Body Mass Index 36.49 08/31/2024 10:32 AM EDT Plan of Treatment Health Maintenance Due Date Last Done Comments DEPRESSION SCREENING 1962 SMOKING Hx and SMOKELESS TOBACCO SCREENING 1963 HEPATITIS C SCREENING 1968 COLOGUARD 1995 FIT TEST 1995 FOBT 1995 SIGMOIDOSCOPY 1995 VIRTUAL COLONOSCOPY 1995 RSV VACCINE (1 - Risk 60-74 years 1-dose series) 2010 OSTEOPOROSIS SCREENING INITIAL (ONE-TIME) 2015 LIPID PANEL 05/22/2016 05/22/2011 ZOSTER VACCINES (3 of 3) 06/06/2019 04/11/2019, 12/13 BLOOD PRESSURE 08/09/2023 02/06/2023 Adult Td,Tdap Booster 03/10/2025 03/10/2015 MAMMOGRAM 05/21/2025 05/21/2023, 06/11, 05/27/2017, Additional history exists INFLUENZA VACCINE (#1) 2025 , 08/13/2022, 08/13/2022, Additional history exists COVID-19 VACCINE ( season) 2025 02/25/2021, 02/02/2021 CREATININE LEVEL 09/05/2025 09/05/2024, , 09/02/2024, Additional history exists POTASSIUM LEVEL 09/05/2025 09/05/2024, 08/12, 09/02/2024, Additional history exists COLONOSCOPY 04/26/2030 04/26/2020, 04/25/2020 COLORECTAL CANCER SCREENING 04/26/2030 PNEUMOCOCCAL VACCINES (50+ years) Completed 09/17/2017, 05/10/2016, 03/09/2016, Additional history exists HEPATITIS A VACCINES Aged Out No long er eligible based on patient's age to complete this topic HIB VACCINES Aged Out No longer eligi ble based on patient's age to complete this topic MENINGOCOCCAL VACCINES (ACWY) Aged Out No longer eligible based on patient's age to complete this topic MENINGOCOCCAL VACCINES (B) Aged Out N o longer eligible based on patient's age to complete this topic Medical Devices Implanted Type Area Business Services Associate Device Identifier Shelf Expiration Date Model / Serial / Lot 12mm/130 Deg Ti Michael Tfna 235mm/Left Implanted:Qty: 1 on 07/15/2024 by Dheeraj Corley MD at [facility] Nail Left: Femur [employer] 10/10/2033 04.037.245 S / / [id number] Screw Bone [id number] Fenestrated Aqanife Tfn Advanced - [id number] Implanted:Qty: 1 on 07/15/2024 by Dheeraj Corley MD at [facility] Left: Femur [facility] [employer] 04/10/2034 04.038.205 S / / [id number] Screw Bone 5x38mm Xl25 Locking Medullary Nail Compatible - [id number] Implanted:Qty: 1 on 07/15/2024 by Dheeraj Corley MD at [facility] Left: Femur [employer] 01/08/2034 04.045.038 S / / [id number] Nail Bone [id number] 125deg Ti Cannulated Tfn Advanced Right - [id number] Implanted:Qty: 1 on 09/02/2024 by Dheeraj Corley MD at [facility] Right: Leg [facility] [employer] 06/10/2033 04.037.132 S / / [id number] Bone Screw 95mm Fenestrated Aqanife Tfn Advanced - [id number] Implanted:Qty: 1 on 09/02/2024 by Dheeraj Corley MD at [facility] Right: Leg [facility] [employer] 04/10/2034 04.038.195 S / / [id number] Screw Bone 5x48mm Locking Xl25 Recess Medullary Nail Compatible - [id number] Implanted:Qty: 1 on 09/02/2024 by Dheeraj Corley MD at [facility] Right: Leg [employer] 12/11/2032 04.045.048 S / / [id number] Screw Bone 5x50mm Xl25 Locking Im Nail Compatible - [id number] Implanted:Qty: 1 on 09/02/2024 by Dheeraj Corley MD at [facility] Right: Leg [employer] 06/10/2033 04.045.050 / / [id number] Procedures Procedure Name Priority Date/Time Associated Diagnosis Comments BASIC METABOLIC PANEL Routine 09/05/2024 8:15 AM EDT BI MAMMOGRAM DIAGNOSTIC WITH TOMOSYNTHESIS WITH CAD (BILATERAL) Routine 05/21/2023 2:28 PM EDT Mastodynia ENDOSCOPY, COLON 04/26/2020 12:3 5 PM EDT OUTSIDE LDL Routine 05/22/2011 from Last 3 Months or Most Recently Relevant to Health Maintenance Results * (ABNORMAL) Basic metabolic panel (09/05/2024 8:15 AM EDT) SODIUM 139 133 - 146 mmol/L [facility] CHLORIDE 100 96 - 108 mmol/L [facility] POTASSIUM 3.7 3.3 - 5.1 mmol/L [facility] CO2 34 21 - 35 mmol/L [facility] BUN 22(H) 6 - 19 mg/dL [facility] CREATININE 0.60 0.5 - 1.5 mg/dL [facility] GLUCOSE 97 70 - 99 mg/dL [facility] CALCIUM 10.4(H) 8.4 - 10.3 mg/dL [facility] EGFR 95 >59 mL/min/1.7 3m2 [facility] Comment:Estimated glomerular filtration rate calculated using the CKD-EPI refit equation. ANION GAP 9(L) 10 - 20 mmol/L [facility] Blood 09/05/2024 8:15 AM EDT 09/05/2024 8:21 AM EDT us Nina Montes DO LAB BLOOD ORDERABLES Final Result [facility] [address] [place] [address] * BI MAMMOGRAM DIAGNOSTIC WITH TOMOSYNTHESIS WITH CAD (BILATERAL) (05/21/2023 2:28 PM EDT) Anatomical Region Laterality Modality Breast Left, Breast Right, Breast Bilateral Bila teral Mammography 05/21/2023 2:44 PM EDT Impressions 05/21/2023 5:20 PM EDT No imaging findings suspicious for malignancy. Bilateral screening mammography in 12 months recommended. Results and recommendation conveyed to the patient before she left the clinic. BI-RADS CATEGORY: 2 - Benign finding. DENSITY: There are scattered fibroglandular densities. Narrative 05/21/2023 5:20 PM EDT HISTORY: Sharp pain in left periareolar region. EXAM: Bilateral diagnostic mammogram with tomosynthesis and CAD, left breast ultrasound. COMPARISON: Compared with previous mammograms as far back as 05/12/2004 and as recent as 06/29/2019. FINDINGS: No suspicious masses or architectural distortion on mammography. No suspicious microcalcifications. Lucent centered coarse calcifications in the left breast consistent with fat necrosis are stable. Directed ultrasound scanning performed of the periareolar left breast. Coarse calcification correlating with area of fat necrosis is visible. No other sonographic abnormalities. Procedure Note Reilly Lam MD - 05/21/2023 HISTORY: Sharp pain in left periareolar region. EXAM: Bilateral diagnostic mammogram with tomosynthesis and CAD, leftbreast ultrasound. COMPARISON: Compared with previous mammograms as far back as 05/12/2004 andas recent as 06/29/2019. FINDINGS: No suspicious masses or architectural distortion on mammography. Nosuspicious microcalcifications. Lucent centered coarse calcifications inthe left breast consistent with fat necrosis are stable. Directed ultrasound scanning performed of the periareolar left breast.Coarse calcification correlating with area of fat necrosis is visible. Noother sonographic abnormalities. IMPRESSION: No imaging findings suspicious for malignancy. Bilateral screeningmammography in 12 months recommended. Results and recommendation conveyed to the patient before she left theclinic. BI-RADS CATEGORY: 2 - Benign finding. DENSITY: There are scattered fibroglandular densities. Chhaya Sosa NP IMG MG EXAMS Final Result * ENDOSCOPY, COLON (04/26/2020 12:35 PM EDT) Narrative Transcriptions Nash Small MD - 04/26/2020 12:35 PM EDT Patient Name: Anabela [place] Attending MD:: NASH SMALL MD Procedure Date: 04/26/2020 12:35 PM Date of : 1950 Age: 69 Admit Type: Outpatient Gender: Female Room: [place] [address] Referring MD: Marily Guevara MD Exam Type: Colonoscopy Indications: Screening for colorectal malignant neoplasm,Screening in patient at increased risk: Family history of 1st-degree relative with colorectal cancer Medications: Monitored Anesthesia Care Procedure: Informed consent was obtained from the patient after discussion of the indications, limitations, alternatives, benefits, and risks of the procedure. Risks specifically discussed include but are not limited to medication reactions, missed lesions, bleeding, perforation, or the need for emergentsurgery. Throughout the procedure, the patient's bloodpressure, pulse, end-tidal CO2, and oxygen saturations were monitored continuously. The Olympus adult variable colonoscope CF-[id number] #7was introduced through the anus and advanced to the terminal ileum, with identification of theappendiceal orifice and IC valve. The colonoscopy was performed without difficulty. The colonoscopy was performed without difficulty. The patient tolerated theprocedure well. The quality of the bowel preparation wasadequate and good after copious irrigation. Complications: No immediate complications. Estimated Blood Loss: Estimated blood loss: none. Findings: The perianal and digital rectal examinations were normal. The terminal ileum appeared normal. Multiple diverticula were found in the sigmoidcolon. A 5 mm polyp was found in the rectum. The polyp was sessile. The polyp was removed with a cold snare. Resection and retrieval were complete. Three sessile polyps were found in the sigmoidcolon. The polyps were 3 to 5 mm in size. These polyps were removed with a cold snare. Resection and retrievalwere complete. A 6 mm polyp was found in the ascending colon. The polyp was sessile and found to be Kudo Pit PatternType IIIS and Kudo Pit Pattern Type IIIL (as viewed with Narrow Band Imaging). The polyp was removed with acold snare. Resection and retrieval were complete. There was 3 x small lipomas, in the ascendingcolon. A 3 mm polyp was found in the ascending colon, foundin retroflexion. The polyp was sessile and found to be Kudo Pit Pattern Type IIIL (as viewed with NarrowBand Imaging). The polyp was removed with a cold snare. Resection and retrieval were complete. A 4 mm polyp was found in the hepatic flexure. The polyp was flat. The polyp was removed with a cold snare. Resection and retrieval were complete. Impression: - The examined portion of the ileum was normal. - Diverticulosis in the sigmoid colon. - One 5 mm polyp in the rectum, removed with a cold snare. Resected and retrieved. - Three 3 to 5 mm polyps in the sigmoid colon,removed with a cold snare. Resected and retrieved. - One 6 mm polyp in the ascending colon, removedwith a cold snare. Resected and retrieved. - Small lipoma in the ascending colon. - One 3 mm polyp in the ascending colon, removedwith a cold snare. Resected and retrieved. - One 4 mm polyp at the hepatic flexure, removedwith a cold snare. Resected and retrieved. Recommendation: - Patient has a contact number available for emergencies. The signs and symptoms of potential delayed complications were discussed with thepatient. Return to normal activities tomorrow. Writtendischarge instructions were provided to the patient. - Await pathology results. - Repeat colonoscopy in 3 years for surveillance. Nash Small NASH SMALL MD 04/26/2020 1:36:08 PM This report has been signed electronically. Number of Addenda: 0 Note Initiated On: 04/26/2020 12:35 PM Procedure Code(s): --- Professional --- 21404, Colonoscopy, flexible; with removal of tumor(s), polyp(s), or other lesion(s) by snare technique --- Technical --- 70559, Colonoscopy, flexible; with removal of tumor(s), polyp(s), or other lesion(s) by snare technique CPT copyright 2018 [employer]. All rights reserved. The codes documented in this report are preliminary and upon grain roaster reviewmay be revised to meet current compliance requirements. Procedure Date: 04/26/2020 12:35:59 PM [address] [place], [place] [address] Marily Guevara MD GI PROCEDURE ORDER ANDREW Final Result * Outside LDL (05/22/2011) LDL - External 114 50 - 250 mg/ml us Historical Provider LAB BLOOD ORDERABLES Roz l Result from Last 3 Months or Most Recently Relevant to Health Maintenance Insurance MEDIC[facility] PART A & [facility] PART A & B [facility] MEDICARE PART A & B [place] [address] [place] [id number] MEDICARE PART A & [facility] [address] [place] [address] MEDICARE PART A & [place] [address] [place] [address] MEDICARE PART A & [place] [address] [place] [address] MEDICARE PART A & B [facility] Advance Directives For more information, please contact: [phone] (9AM - 5PM [facility], Saturday-Saturday) Documents on File Type Date Recorded Patient Conveyor System Dispatcher Expl anation Healthcare Proxy 01/26/2023 signed 01/26 * Full Code (Latest Code Status on File) Date Activated Date Inactivated Comments 08/31/2024 5:20 PM Question Answer Comments Code Status Confirmed With: Patient * Full Code Date Activated Date Inactivated Comments 07/14/2024 1:48 PM 08/31/2024 5:20 PM Question Answer Comments Code Status Confirmed With: Patient Code Status Communicated To: Inpatient Attending Care Teams Cartoon Artist Relationship Specialty Start Date End Date Chhaya Sosa NP [address] [place] [id number] [email or web address] PCP - General Nurse Practitioner 02/05/23 Additional Source Comments The information contained in this document represents components of the legal health record. It is not the complete legal health record.[facility]
--- OUTSIDE RECORDS SUMMARY | 2025-07-13 06:33 | XMS_ITS | Encounter Summary ---
Author Organization [facility] Address [address] [place] [address] Phone Care Team Providers Care Telecom Specialist Name Role Phone Chhaya Sosa NP Primary Care Provider [phone] Encounter Details Date Type Department Care Team (Late st Contact Info) Description 03/15/2023 Procedure Pass , [address] [address] Social History Tobacco Use Types Packs/Day Years [...] documented as of this encounter Care Teams Telecom Specialist Relationship Specialty Start Date End Date Chhaya Sosa NP [address] [place] [address] [email or web address] PCP - General Nurse Practitioner 02/05/23 documented as of this encounter Additional Source Comments The information contained in this document represents components of the legal health record. It is not the complete legal health record.[facility]
--- OUTSIDE RECORDS SUMMARY | 2025-07-13 06:33 | XMS_ITS | Encounter Summary ---
Author Organization [facility] Address [address] [place] [address] [place] [address] Phone Care Team Providers Care Jewelry Appraiser Name Role Phone Marily Lock MD Primary Care Prov ider Chhaya Sosa NP Primary Care Provider [phone] Encounter Details Date Type Department Care Team (Late st Contact Info) Description 12/01/2020 Ancillary Orders [facility] [address] [place] [address] [phone] Lauren Lowe PA-C [address] [place] [address] [facility] [place], [place] [id number] [email or web address] Social History Tobacco Use Types Packs/Day Years Used Date Smoking Tobacco: Every Day Cigarettes Smokeless Tobacco: Never Alcohol Use Standard Drinks/Week Comments Not Currently 0 (1 standard drink = 0.6 oz pur e alcohol) Comments No Sex and Gender Information Value [...] documented as of this encounter Care Teams Jewelry Appraiser Relationship Specialty Start Date End Date Marily Lock MD [address] [place] [address] [email or web address] PCP - General Family Medicine 12/21/19 02/04/23 Chhaya Sosa NP [address] [place] [address] [email or web address] PCP - General Nurse Practitioner 02/05/23 documented as of this encounter Additional Source Comments The information contained in this document represents components of the legal health record. It is not the complete legal health record.[facility]
--- OUTSIDE RECORDS SUMMARY | 2025-07-13 06:33 | XMS_ITS | Encounter Summary ---
Author Organization [facility] Address [address] [place] [address] Phone Care Team Providers Care Business Intelligence Manager Name Role Phone Chhaya Sosa NP Primary Care Provider [phone] Encounter Details Date Type Department Care Team (Late st Contact Info) Description 03/15/2023 Procedure Pass [facility] [address] [place] [address] Social History Tobacco Use Types Packs/Day Years [...] as of this encounter Care Teams Business Intelligence Manager Relationship Specialty Start Date End Date Chhaya Sosa NP [address] [place] [address] [email or web address] PCP - General Nurse Practitioner 02/05/23 documented as of this encounter Additional Source Comments The information contained in this document represents components of the legal health record. It is not the complete legal health record.[facility]
--- OUTSIDE RECORDS SUMMARY | 2025-07-13 06:33 | XMS_ITS | Encounter Summary ---
Author Organization [facility] Address [address] [facility] [address] [place] [address] Phone Care Team Providers Care Windows Security Analyst Name Role Phone Chhaya Sosa NP Primary Care Provider [phone] Encounter Details Date Type Department Care Team (Late st Contact Info) Description 05/18/2024 Procedure Pass [facility] Admitting Dept Virtual Department [address] [place], [place] [id number] Social History Tobacco Use Types Packs/Day Years [...] documented as of this encounter Care Teams Windows Security Analyst Relationship Specialty Start Date End Date Chhaya Sosa NP [address] [place] [address] [email or web address] PCP - General Nurse Practitioner 02/05/23 documented as of this encounter Additional Source Comments The information contained in this document represents components of the legal health record. It is not the complete legal health record.[facility]
--- OUTSIDE RECORDS SUMMARY | 2025-07-13 06:33 | XMS_ITS | Encounter Summary ---
Author Organization [facility] Address [address] [facility] [address] [place] [address] Phone Care Team Providers Care Chief Operations Officer Name Role Phone Chhaya Sosa NP Primary Care Provider [phone] Encounter Details Date Type Department Care Team (Late st Contact Info) Description 07/15/2024 Procedure Pass OR Admitting Dept - Virtual Department [address] [place], [place] [phone] Social History Tobacco Use Types Packs/Day Years [...] documented as of this encounter Care Teams Chief Operations Officer Relationship Specialty Start Date End Date Chhaya Sosa NP [address] [place] [address] [email or web address] PCP - General Nurse Practitioner 02/05/23 documented as of this encounter Additional Source Comments The information contained in this document represents components of the legal health record. It is not the complete legal health record.[facility]
--- OUTSIDE RECORDS SUMMARY | 2025-07-13 06:33 | XMS_ITS | Encounter Summary ---
Author Organization [facility] Address [address] [place] [address] [place] [address] Phone Care Team Providers Care Chromosomal Disorders Counselor Name Role Phone Marily Lock MD Primary Care Prov ider Chhaya Sosa NP Primary Care Provider Encounter Details Date Type Department Care Team (Late st Contact Info) Description 04/26/2020 Procedure Pass [facility] Endoscopy Admitting Dept Virtual Department [address] [place] [address] Social History Tobacco Use Types Packs/Day Years [...] documented as of this encounter Care Teams Chromosomal Disorders Counselor Relationship Specialty Start Date End Date Marily Lock MD [address] [place] [address] [email or web address] PCP - General Family Medicine 12/21/19 02/04/23 Chhaya Sosa NP [address] [place] [address] [email or web address] PCP - General Nurse Practitioner 02/05/23 documented as of this encounter Additional Source Comments The information contained in this document represents components of the legal health record. It is not the complete legal health record.[facility]
--- OUTSIDE RECORDS SUMMARY | 2025-07-13 06:33 | XMS_ITS | Encounter Summary ---
Author Organization [facility] Address [address] [facility] [address] [place] [address] Phone Care Team Providers Care Senior Windows Administrator Name Role Phone Marily Lock MD Primary Care Prov ider Chhaya Sosa NP Primary Care Provider [phone] Encounter Details Date Type Department Care Team (Late st Contact Info) Description 12/01/2020 Ancillary Orders [address] [phone] Lauren Lowe PA-C [address] [place] [address] [facility] [place], [place] [phone] [email or web address] Right wrist pain Social History Tobacco Use Types Packs/Day Years [...] on file documented as of this encounter Results * XR WRIST 2 VIEWS (RIGHT) (12/01/2020 12:10 PM EST) Narrative SYSTEMGENERATED, DOCUMENTATION - 12/01/2020 12:10 PM EST This image report has been auto-finalized and has not been read by a Radiologist. Interpretation has been included in the provider encounter note for this date of service. Lauren Shaver Mynor ROSALES IMG XR UPPER EXTREMI TY Final Result documented in this encounter Visit Diagnoses Diagnosis Right wrist pain Pain in joint, forearm Right wrist pain Pain in joint, forearm documented in this encounter Additional Health Concerns Infection Onset Date Last Indicated Resolved Time CDiff-Risk 09/04/2024 09/04/2024 09/05/2024 2:50 PM EDT documented as of this encounter Care Teams Senior Windows Administrator Relationship Specialty Start Date End Date Marily Lock MD [address] [place] [address] [email or web address] PCP - General Family Medicine 12/21/19 02/04/23 Chhaya Sosa NP [address] [place] [address] [email or web address] PCP - General Nurse Practitioner 02/05/23 documented as of this encounter Additional Source Comments The information contained in this document represents components of the legal health record. It is not the complete legal health record.[facility]
--- OUTSIDE RECORDS SUMMARY | 2025-07-13 06:33 | XMS_ITS | Encounter Summary ---
Author Organization [facility] Address [address] [facility] [address] [place] [address] Phone Care Team Providers Care Folder And Notcher Name Role Phone Chhaya Sosa NP Primary Care Provider [phone] Encounter Details Date Type Department Care Team (Late st Contact Info) Description 09/02/2024 Procedure Pass OR Admitting Dept - Virtual Department 30 [place], [place] [phone] Social History Tobacco Use Types Packs/Day Years [...] your housing situation today? I have kaity sing 08/31/2024 How many times have you move [...] documented as of this encounter Care Teams Folder And Notcher Relationship Specialty Start Date End Date Chhaya Sosa NP [address] [place] [address] [email or web address] PCP - General Nurse Practitioner 02/05/23 documented as of this encounter Additional Source Comments The information contained in this document represents components of the legal health record. It is not the complete legal health record.[facility]
--- OUTSIDE RECORDS SUMMARY | 2025-07-13 06:33 | XMS_ITS | Encounter Summary ---
Author Organization [facility] Address [address] [facility] [address] [place] [address] Phone Care Team Providers Care Top And Trim Worker Name Role Phone Chhaya Sosa NP Primary Care Provider [phone] Encounter Details Date Type Department Care Team (Latest Contact Info) Description 10/15/2024 Ancillary Orders [facility] [address] [place] [address] [phone] Mana Flores PA-C [address] [place] [address] Orth[facility] Sports Medicine, [facility]. [place], [place] [phone] [email or web address] Fracture, hip (Primary Dx) Social History Tobacco Use Types [...] as of this encounter Results * XR HIPS 1 VW EA BILAT PLUS PELVIS (10/15/2024 10:03 AM EST) Narrative SYSTEMGENERATED, DOCUMENTATION - 10/15/2024 10:03 AM EST This image report has been auto-finalized and has not been read by a Radiologist. Interpretation has been included in the provider encounter note for this date of service. us Mana Flores PA-C IMG XR PELVIS Final Re sult documented in this encounter Visit Diagnoses Diagnosis Fracture, hip Closed fracture of unspecified part of neck of femur Fracture, hip- Primary Closed fracture of unspecified part of neck of femur documented in this encounter Care Teams Top And Trim Worker Relationship Specialty Start Date End Date Chhaya Sosa NP [address] [place] [address] [email or web address] PCP - General Nurse Practitioner 02/05/23 documented as of this encounter Additional Source Comments The information contained in this document represents components of the legal health record. It is not the complete legal health record.[facility]
--- OUTSIDE RECORDS SUMMARY | 2025-07-13 06:33 | XMS_ITS | Encounter Summary ---
Author Organization [facility] Address [address] [facility] [address] [place] [address] Phone Care Team Providers Care Tack Coverer Name Role Phone Chhaya Sosa NP Primary Care Provider [phone] Encounter Details Date Type Department Care Team (Late st Contact Info) Description 08/10/2024 Procedure Pass [facility] Endoscopy Admitting Dept Virtual Department 30 [place], [place] [phone] Social History Tobacco Use Types Packs/Day Years [...] documented as of this encounter Care Teams Tack Coverer Relationship Specialty Start Date End Date Chhaya Sosa NP [address] [place] [address] [email or web address] PCP - General Nurse Practitioner 02/05/23 documented as of this encounter Additional Source Comments The information contained in this document represents components of the legal health record. It is not the complete legal health record.[facility]
--- OUTSIDE RECORDS SUMMARY | 2025-07-13 06:33 | XMS_ITS | Encounter Summary ---
Author Organization [facility] Address [address] [place] [address] [place] [address] Phone Care Team Providers Care Packaging Manager Name Role Phone Marily Lock MD Primary Care Prov ider Chhaya Sosa NP Primary Care Provider [phone] Encounter Details Date Type Department Care Team (Late st Contact Info) Description 04/25/2020 Procedure Pass [facility] Endoscopy Admitting Dept Virtual Department [address] [place] [address] Social History Tobacco Use Types Packs/Day Years [...] documented as of this encounter Care Teams Packaging Manager Relationship Specialty Start Date End Date Marily Lock MD [address] [place] [address] [email or web address] PCP - General Family Medicine 12/21/19 02/04/23 Chhaya Sosa NP [address] [place] [address] [email or web address] PCP - General Nurse Practitioner 02/05/23 documented as of this encounter Additional Source Comments The information contained in this document represents components of the legal health record. It is not the complete legal health record.[facility]
[2025-07-13 06:55] LABS: Anion Gap 11 (12-20); Blood Urea Nitrogen 20 mg/dL (9-16); Calcium 11.3 mg/dL (8.4-10.2); Carbon Dioxide 28 mmol/L (22-29); Chloride 109 mmol/L (96-108); Estimated Glomerular Filt Rate > 60; Potassium 3.1 mmol/L (3.3-5.1); Sodium 145 mmol/L (135-145)
== END 2025-07-13 06:27 | disposition home or self-care (01) ==
LOC: HO.MMNH3L 06:26
PROVIDERS: Visit Provider Family Medicine
DX: I10 Essential (primary) hypertension (principal); J44.9 Chronic obstructive pulmonary disease, unspecified; E78.5 Hyperlipidemia, unspecified
CPT/HCPCS: 36415; 80048; 85025

== ENCOUNTER 2025-07-19 05:58 | Outpatient (REF) | payer MEDICARE, MEDICAID, SELFPAY ==
--- OUTSIDE RECORDS SUMMARY | 2020-11-15 18:21 | XMS_ITS | Encounter Summary ---
Author Organization [facility] Address [address] [place] [address] Phone Care Team Providers Care Nutrition Educator Name Role Phone Marily Lock MD Primary Care Prov ider Encounter Details Date Type Department Care Team (Late st Contact Info) Description 11/15/2020 5:21 PM EST Hospital Encounter [facility] [address] [place] [phone] Margoth Pan CNP [address] [place] [phone] [email or web address] Social History Tobacco Use Types Packs/Day Years [...] 9:49 AM EDT Jovanny Lazaro RN * [place] Suicide Severity Rating Scale (Screener/Recent Self-Report) Question Answer Date of Assessment Author 1. Wish to be (Past 1 Month) No 024 9:49 AM EDBeth Field RN 2. Non-Specific Active Suici angie Thoughts (Past 1 Month) No 08/31/2024 9:49 AM EDBeth Field RN 6. Suicidal Behavior (Lifetime) No 4 9:49 AM EDT Beth Lazaro RN documented [...] angulated, extra-articular fracture ofthe distal radial metaphysis. Margoth Serrano Viviane POUCH MAKING MACHINE OPERATOR IMG XR UPPER EXTREMITY Roz l Result documented in this encounter Visit Diagnoses Not on filedocumented in this encounter Additional Health Concerns Infection Onset Date Last Indicated Resolved Time CDiff-Risk 09/04/2024 09/04/2024 09/05/2024 2:50 PM EDT documented as of this encounter Care Teams Nutrition Educator Relationship Specialty Start Date End Date Marily Lock MD [address] [place] [address] [phone] [email or web address] PCP - General Family Medicine 12/21/19 02/04/23 documented as of this encounter Additional Source Comments The information contained in this document represents components of the legal health record. It is not the complete legal health record.[facility]
--- OUTSIDE RECORDS SUMMARY | 2020-11-15 18:21 | XMS_ITS | Encounter Summary ---
Author Organization [facility] Address [address] [place] [address] Phone Care Team Providers Care Developmental Mathematics Professor Name Role Phone Marily Lock MD Primary Care Prov ider Encounter Details Date Type Department Care Team (Late st Contact Info) Description 11/15/2020 5:21 PM EST Hospital Encounter [facility] [address] [place] [address] Margoth Pan CNP [address] [place] [address] [email or web address] Social History Tobacco Use Types Packs/Day Years [...] 9:49 AM EDT Jovanny Lazaro RN * [place] Suicide Severity Rating Scale (Screener/Recent Self-Report) Question [...] nondisplaced rib fracture, CT can be considered. Margoth Pan RANGE EXAMINER IMG XR CHEST Final Resul t documented in this encounter Visit Diagnoses Not on filedocumented in this encounter Additional Health Concerns Infection Onset Date Last Indicated Resolved Time CDiff-Risk 09/04/2024 09/04/2024 09/05/2024 2:50 PM EDT documented as of this encounter Care Teams Developmental Mathematics Professor Relationship Specialty Start Date End Date Marily Lock MD [address] [place] [phone] [email or web address] PCP - General Family Medicine 12/21/19 02/04/23 documented as of this encounter Additional Source Comments The information contained in this document represents components of the legal health record. It is not the complete legal health record.[facility]
--- OUTSIDE RECORDS SUMMARY | 2023-01-25 16:24 | XMS_ITS | Encounter Summary ---
Author Organization [facility] Address [address] [place] [address] Phone Care Team Providers Care Hot Saw Helper Name Role Phone Marily Lock MD Primary Care Prov ider Encounter Details Date Type Department Care Team (Late st Contact Info) Description 01/25/2023 4:24 PM EDT Hospital Encounter [facility] [address] [place] [address] Margoth Pan CNP [address] [place] [address] [phone] Social History Tobacco Use Types Packs/Day Years [...] is your housing situation today? I have kaitybrittany amyo 08/31/2024 How many times have you move [...] 9:49 AM EDT Jovanny Lazaro RN * [place] Suicide Severity Rating Scale (Screener/Recent Self-Report) Question Answer Date of Assessment Author 1. Wish to be (Past 1 Month) No 024 9:49 AM EDT Beth Lazaro RN 2. Non-Specific Active Suici angie Thoughts [...] change. Severe medial tibiofemoral compartment narrowing and fkouhwip-uw-trqxvo lateral tibiofemoral compartment narrowing. Mild patellofemoral compartment narrowing with lateral patellar subluxation. Bulky tricompartmental osteophytes. Chondrocalcinosis. Izvue-hx-eztswgnq effusion. 1.8 cm dystrophic calcification along the posterior knee soft tissues, chronic in appearance. Procedure Note Shy Nuno MD - 01/25/2023 XR KNEE 4 OR MORE VIEWS (LEFT) COMPARISON: KNEE, BILATERAL FINDINGS: Left Knee: Cortical step-off along the proximal fibula. Minimal lateralsubluxation of the tibia in relation to the femur in the setting ofdegenerative change. Severe medial tibiofemoral compartment narrowing jjrrrblhkxi-nm-dfmyqg lateral tibiofemoral compartment narrowing. Mildpatellofemoral compartment narrowing with lateral patellar subluxation.Bulky tricompartmental osteophytes. Chondrocalcinosis. Tjjdg-rd-mnmsgbpeeaphiday. 1.8 cm dystrophic calcification along the posterior knee softtissues, chronic in appearance. IMPRESSION: 1. Cortical step-off along the proximal fibula, likely representing aminimally impacted proximal fibular fracture. Correlation with pointtenderness. 2. 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 3. Chondrocalcinosis. Margoth Pan SAMPLE PROCESSOR IMG XR LOWER EXTREMITY Roz l Result documented in this encounter Visit Diagnoses Not on filedocumented in this encounter Additional Health Concerns Infection Onset Date Last Indicated Resolved Time CDiff-Risk 09/04/2024 09/04/2024 09/05/2024 2:50 PM EDT documented as of this encounter Care Teams Hot Saw Helper Relationship Specialty Start Date End Date Marily Lock MD [address] [place] [phone] [email or web address] PCP - General Family Medicine 12/21/19 02/04/23 documented as of this encounter Additional Source Comments The information contained in this document represents components of the legal health record. It is not the complete legal health record.[facility]
[2025-07-19 05:57] LABS: MANUAL DIFF FLAG NO
--- OUTSIDE RECORDS SUMMARY | 2025-07-19 06:00 | XMS_ITS | Encounter Summary ---
Author Organization [facility] Address [address] [place] [address] Phone Care Team Providers Care Cell Tester Name Role Phone Marily Lock MD Primary Care Prov ider Chhaya Sosa NP Primary Care Provider [phone] Encounter Details Date Type Department Care Team (Late st Contact Info) Description 04/25/2020 Procedure Pass [facility] Endoscopy Admitting Dept Virtual Department [address] [place] [address] Social History Tobacco Use Types Packs/Day Years [...] documented as of this encounter Care Teams Cell Tester Relationship Specialty Start Date End Date Marily Lock MD [address] [place] [address] [email or web address] PCP - General Family Medicine 12/21/19 02/04/23 Chhaya Sosa NP [address] [place] [address] [email or web address] PCP - General Nurse Practitioner 02/05/23 documented as of this encounter Additional Source Comments The information contained in this document represents components of the legal health record. It is not the complete legal health record.[facility]
--- OUTSIDE RECORDS SUMMARY | 2025-07-19 06:00 | XMS_ITS | Encounter Summary ---
Author Organization [facility] Address [address] [facility] [address] [place] [address] Phone Care Team Providers Care Drafting Layout Man Name Role Phone Marily Lock MD Primary Care Prov ider Chhaya Sosa NP Primary Care Provider [phone] Encounter Details Date Type Department Care Team (Late st Contact Info) Description 12/01/2020 Ancillary Orders [address] [phone] Lauren Lowe PA-C [address] [place] [address] [facility] [place], [place] [phone] [email or web address] Right wrist pain Social History Tobacco Use [...] documented as of this encounter Care Teams Drafting Layout Man Relationship Specialty Start Date End Date Marily Lock MD [address] [place] [address] [email or web address] PCP - General Family Medicine 12/21/19 02/04/23 Chhaya Sosa NP [address] [place] [address] [email or web address] PCP - General Nurse Practitioner 02/05/23 documented as of this encounter Additional Source Comments The information contained in this document represents components of the legal health record. It is not the complete legal health record.[facility]
--- OUTSIDE RECORDS SUMMARY | 2025-07-19 06:00 | XMS_ITS | Encounter Summary ---
Author Organization [facility] Address [address] [place] [address] [place] [address] Phone Care Team Providers Care Stereoptic Projection Topographer Name Role Phone Marily Lock MD Primary Care Prov ider Chhaya Sosa NP Primary Care Provider [phone] Encounter Details Date Type Department Care Team (Late st Contact Info) Description 12/01/2020 Ancillary Orders [facility] [address] [place] [address] [phone] Lauren Lowe PA-C [address] [place] [address] [facility] [place], [place] [phone] [email or web address] Social History Tobacco Use Types Packs/Day Years [...] documented as of this encounter Care Teams Stereoptic Projection Topographer Relationship Specialty Start Date End Date Marily Lock MD [address] [place] [address] [email or web address] PCP - General Family Medicine 12/21/19 02/04/23 Chhaya Sosa NP [address] [place] [address] [email or web address] PCP - General Nurse Practitioner 02/05/23 documented as of this encounter Additional Source Comments The information contained in this document represents components of the legal health record. It is not the complete legal health record.[facility]
--- OUTSIDE RECORDS SUMMARY | 2025-07-19 06:00 | XMS_ITS | Clinical Summary ---
Author Organization [facility] [address] [facility] Address [address] [place] [address] Phone Care Team Providers Care Spring Tacker Name Role Phone Saqib Lock MD Primary Care Provi amelia Medical History Medical History Date Comments Current every day smoker DX:Curr ent every day smoker Essential (primary) hypertension DX:Essential (primary) hypertension COPD (chronic obstructive pu lmonary disease) (CMS/HCC V24, CMS/HCC V28) DX:COPD (chronic o bstructive pulmonary disease) ([facility]) Depression DX:Depression Thyroid disease DX:Thyroid [...] 10/09/2022 Social Influencers of Health Screening 10/09/2022 Depression Screening 11/11/2024 COVID-19 Vaccine (1 - 2023-2 5 season) 2025 Influenza Vaccine (#1) 2025 RSV Immunization Adult [...] Insurance MEDICAID - [place] MEDICARE Care Teams Spring Tacker Relationship Specialty Start Date End Date Saqib Lock MD [address] [place], [place] PCP - General 10/30/22
--- OUTSIDE RECORDS SUMMARY | 2025-07-19 06:00 | XMS_ITS | Clinical Summary ---
Author Organization [facility] Address [address] [place] [address] Phone Care Team Providers Care Jute Bag Cutting Machine Operator Name Role Phone Chhaya Sosa NP Primary Care Provider [phone] Allergies No known active allergies Medications sertraline [...] refer to [place] at [facility]. Hip fracture 07/14/2024 Assessment & Plan (09/04/2024 [...] (07/16/2024 10:24 AM EDT): Continue diltiazem. Called [facility]. Pt is prescribed irbesrtan/HCTZ 150/12.5, last [...] this topic Medical Devices Implanted Type Area Dairy Machine Operator Farmworker Device Identifier Shelf Expiration Date Model / Serial / Lot 12mm/130 Deg Ti Michael Tfna 235mm/Left Implanted:Qty: 1 on 07/15/2024 by Dheeraj Corley MD at [facility] Nail Left: Femur [employer] 10/10/2033 04.037.245 S / / [id number] Screw Bone 10.2c470qz Fenestrated Aqanife Tfn Advanced - [id number] Implanted:Qty: 1 on 07/15/2024 by Dheeraj Corley MD at [facility] Left: Femur [facility] [employer] 04/10/2034 04.038.205 S / / [id number] Screw Bone 5x38mm Xl25 Locking Medullary Nail Compatible - [id number] Implanted:Qty: 1 on 07/15/2024 by Dheeraj Corley MD at [facility] Left: Femur [employer] 01/08/2034 04.045.038 S / / [id number] Nail Bone [id number] 125deg Ti Cannulated Tfn Advanced Right - [id number] Implanted:Qty: 1 on 09/02/2024 by Dheeraj Corley MD at [facility] Right: Leg [facility] [employer] 06/10/2033 04.037.132 S / / [id number] Bone Screw 95mm Fenestrated Aqanife Tfn Advanced - [id number] Implanted:Qty: 1 on 09/02/2024 by Dheeraj Corley MD at [facility] Right: Leg [facility] [employer] 04/10/2034 04.038.195 S / / [id number] Screw Bone 5x48mm Locking Xl25 Recess Medullary Nail Compatible - [id number] Implanted:Qty: 1 on 09/02/2024 by Dheeraj Corley MD at [facility] Right: Leg [employer] 12/11/2032 04.045.048 S / / [id number] Screw Bone 5x50mm Xl25 Locking Im Nail Compatible - [id number] Implanted:Qty: 1 on 09/02/2024 by Dheeraj Corley MD at [facility] Right: Leg [employer] 06/10/2033 04.045.050 / / [id number] Procedures Procedure Name Priority Date/Time Associated Diagnosis [...] EDT) SODIUM 139 133 - 146 mmol/L [facility] CHLORIDE 100 96 - 108 mmol/L [facility] POTASSIUM 3.7 3.3 - 5.1 mmol/L [facility] CO2 34 21 - 35 mmol/L [facility] BUN 22(H) 6 - 19 mg/dL [facility] CREATININE 0.60 0.5 - 1.5 mg/dL [facility] GLUCOSE 97 70 - 99 mg/dL [facility] CALCIUM 10.4(H) 8.4 - 10.3 mg/dL [facility] EGFR 95 >59 mL/min/1.7 3m2 [facility] Comment:Estimated glomerular filtration rate calculated using the CKD-EPI refit equation. ANION GAP 9(L) 10 - 20 mmol/L [facility] Blood 09/05/2024 8:15 AM EDT 09/05/2024 8:21 AM EDT us Nina Montes DO LAB BLOOD ORDERABLES Final Result [facility] [address] [place] [address] * BI MAMMOGRAM DIAGNOSTIC WITH TOMOSYNTHESIS WITH [...] 69 Admit Type: Outpatient Gender: Female Room: [place] [address] Referring MD: Marily Guevara MD Exam Type: [...] monitored continuously. The Olympus adult variable colonoscope [id number] #7was introduced through the anus and advanced [...] 12:35 PM Procedure Code(s): --- Professional --- 45232, Colonoscopy, flexible; with removal of tumor(s), polyp(s), or other lesion(s) by snare technique --- Technical --- 51676, Colonoscopy, flexible; with removal of tumor(s), polyp(s), or other lesion(s) by snare technique CPT copyright 2018 [employer] [employer]. All rights reserved. The codes documented in this report are preliminary and upon child's nurse reviewmay be revised to meet current compliance requirements. Procedure Date: 04/26/2020 12:35:59 PM [address] [place], [place] 1930[address] Marily Guevara MD GI PROCEDURE ORDER ANDREW Final Result * Outside LDL (05/22/2011) LDL - External 114 50 - 250 mg/ml us Historical Provider LAB BLOOD ORDERABLES Roz l Result from Last 3 Months or Most Recently Relevant to Health Maintenance Insurance [facility]IC[facility] PART A & [facility] & B [facility] MEDICARE PART A & B [place] [address] [place] [id number] MEDICARE PART A & B [facility] [address] [place] [address] MEDICARE PART A & B [place] [address] [place] [address] MEDICARE PART A & B [place] [address] [place] [address] MEDICARE PART A & B [facility] Advance Directives For more information, please contact: [phone] (9AM - 5PM [facility], Saturday-Saturday) Documents on File Type Date Recorded Patient Jet [employer] Servicer Expl anation Healthcare Proxy 01/26/2023 signed 01/26 * Full Code (Latest Code Status on File) Date Activated Date Inactivated Comments 08/31/2024 5:20 PM Question Answer Comments Code Status Confirmed With: Patient * Full Code Date Activated Date Inactivated Comments 07/14/2024 1:48 PM 08/31/2024 5:20 PM Question Answer Comments Code Status Confirmed With: Patient Code Status Communicated To: Inpatient Attending Care Teams Jute Bag Cutting Machine Operator Relationship Specialty Start Date End Date Chhaya Sosa NP [address] [place] [address] [email or web address] PCP - General Nurse Practitioner 02/05/23 Additional Source Comments The information contained in this document represents components of the legal health record. It is not the complete legal health record.[facility]
--- OUTSIDE RECORDS SUMMARY | 2025-07-19 06:00 | XMS_ITS | Encounter Summary ---
Author Organization [facility] Address [address] [facility] [address] [place] [address] Phone Care Team Providers Care Hi Ranger Operator Name Role Phone Chhaya Sosa NP Primary Care Provider [phone] Encounter Details Date Type Department Care Team (Late st Contact Info) Description 03/15/2023 Procedure Pass [facility] [address] [place] [address] Social History Tobacco Use Types Packs/Day Years [...] documented as of this encounter Care Teams Hi Ranger Operator Relationship Specialty Start Date End Date Chhaya Sosa NP [address] [place] [address] [email or web address] PCP - General Nurse Practitioner 02/05/23 documented as of this encounter Additional Source Comments The information contained in this document represents components of the legal health record. It is not the complete legal health record.[facility]
--- OUTSIDE RECORDS SUMMARY | 2025-07-19 06:00 | XMS_ITS | Encounter Summary ---
Author Organization [facility] Address [address] [facility] [address] [place] [address] Phone Care Team Providers Care Water Rights Specialist Name Role Phone Chhaya Sosa NP Primary Care Provider [phone] Encounter Details Date Type Department Care Team (Late st Contact Info) Description 03/15/2023 Procedure Pass [facility], [address] [address] Social History Tobacco Use Types Packs/Day Years [...] documented as of this encounter Care Teams Water Rights Specialist Relationship Specialty Start Date End Date Chhaya Sosa NP [address] [place] [address] [email or web address] PCP - General Nurse Practitioner 02/05/23 documented as of this encounter Additional Source Comments The information contained in this document represents components of the legal health record. It is not the complete legal health record.[facility]
--- OUTSIDE RECORDS SUMMARY | 2025-07-19 06:00 | XMS_ITS | Encounter Summary ---
Author Organization [facility] Address [address] [place] [address] Phone Care Team Providers Care Graduate Advisor Name Role Phone Marily Lock MD Primary Care Prov ider Chhaya Sosa NP Primary Care Provider [phone] Encounter Details Date Type Department Care Team (Late st Contact Info) Description 04/26/2020 Procedure Pass [facility] Endoscopy Admitting Dept Virtual Department [address] [place] [address] Social History Tobacco Use Types Packs/Day Years [...] documented as of this encounter Care Teams Graduate Advisor Relationship Specialty Start Date End Date Marily Lock MD [address] [place] [address] [email or web address] PCP - General Family Medicine 12/21/19 02/04/23 Chhaya Sosa NP [address] [place] [address] [email or web address] PCP - General Nurse Practitioner 02/05/23 documented as of this encounter Additional Source Comments The information contained in this document represents components of the legal health record. It is not the complete legal health record.[facility]
--- OUTSIDE RECORDS SUMMARY | 2025-07-19 06:01 | XMS_ITS | Encounter Summary ---
Author Organization [facility] Address [address] [facility] [address] [place] [address] Phone Care Team Providers Care System Validation Engineer Name Role Phone Chhaya Sosa NP Primary Care Provider [phone] Encounter Details Date Type Department Care Team (Latest Contact Info) Description 10/15/2024 Ancillary Orders [facility] Orthopedics & Sports Medicine [address] [place] [address] [phone] Mana Flores PA-C [address] [place] [address] Orthopedics & Sports Medicine, [facility]. [place], [place] [phone] [email or web address] Fracture, hip (Primary Dx) Social History [...] femur documented in this encounter Care Teams System Validation Engineer Relationship Specialty Start Date End Date Chhaya Sosa NP [address] [place] [address] [email or web address] PCP - General Nurse Practitioner 02/05/23 documented as of this encounter Additional Source Comments The information contained in this document represents components of the legal health record. It is not the complete legal health record.[facility]
--- OUTSIDE RECORDS SUMMARY | 2025-07-19 06:01 | XMS_ITS | Encounter Summary ---
Author Organization [facility] Address [address] [facility] [address] [place] [address] Phone Care Team Providers Care Shredding Machine Tender Name Role Phone Chhaya Sosa NP Primary Care Provider [phone] Encounter Details Date Type Department Care Team (Late st Contact Info) Description 09/02/2024 Procedure Pass [place] Admitting Dept - Virtual Department [address] [place], [place] [phone] Social History Tobacco Use Types Packs/Day Years [...] documented as of this encounter Care Teams Shredding Machine Tender Relationship Specialty Start Date End Date Chhaya Sosa NP [address] [place] [phone] [email or web address] PCP - General Nurse Practitioner 02/05/23 documented as of this encounter Additional Source Comments The information contained in this document represents components of the legal health record. It is not the complete legal health record.[facility]
--- OUTSIDE RECORDS SUMMARY | 2025-07-19 06:01 | XMS_ITS | Encounter Summary ---
Author Organization [facility] Address [address] [facility] [address] [place] [address] Phone Care Team Providers Care Nurse Paralegal Name Role Phone Chhaya Sosa NP Primary Care Provider [phone] Encounter Details Date Type Department Care Team (Late st Contact Info) Description 07/15/2024 Procedure Pass OR Admitting Dept - Virtual Department 30 [place], [place] [phone] Social History Tobacco Use Types Packs/Day Years [...] documented as of this encounter Care Teams Nurse Paralegal Relationship Specialty Start Date End Date Chhaya Sosa NP [address] [place] [address] [email or web address] PCP - General Nurse Practitioner 02/05/23 documented as of this encounter Additional Source Comments The information contained in this document represents components of the legal health record. It is not the complete legal health record.[facility]
--- OUTSIDE RECORDS SUMMARY | 2025-07-19 06:01 | XMS_ITS | Encounter Summary ---
Author Organization [facility] Address [address] [facility] [address] [place] [address] Phone Care Team Providers Care Lead Manufacturing Technician Name Role Phone Chhaya Sosa NP Primary Care Provider [phone] Encounter Details Date Type Department Care Team (Late st Contact Info) Description 08/10/2024 Procedure Pass [facility] Endoscopy Admitting Dept Virtual Department 30 [place], [place] [phone] Social History Tobacco Use Types Packs/Day Years [...] documented as of this encounter Care Teams Lead Manufacturing Technician Relationship Specialty Start Date End Date Chhaya Sosa NP [address] [place] [address] [email or web address] PCP - General Nurse Practitioner 02/05/23 documented as of this encounter Additional Source Comments The information contained in this document represents components of the legal health record. It is not the complete legal health record.[facility]
--- OUTSIDE RECORDS SUMMARY | 2025-07-19 06:01 | XMS_ITS | Encounter Summary ---
Author Organization [facility] Address [address] [place] [address] Phone Care Team Providers Care Conciliator Name Role Phone Chhaya Sosa NP Primary Care Provider [phone] Reason for Referral * Physical Therapy (Routine) - Closed Specialty Diagnoses / Procedures Referred By Antelmo lopez Referred To Contact Physical Therapy Diagnoses Encounter for rehabilitation Chhaya Sosa NP [address] [place] [address] Phone: tel: fax: [email or web address] [facility] [address] [place] [address] Phone: tel: Referral ID Status Reason Start Date Expiration Date Visits Re quested Visits Authorized [id number] Closed 04/23/2024 04/23/2025 1 1 Encounter Details Date Type Department Care Team (Late st Contact Info) Description 04/23/2024 Transcribe Orders [facility] [address] [place] [address] Chhaya Sosa NP [address] [place] [address] [email or web address] Encounter for rehabilitation (Primary Dx) Social History [...] Diagnoses Orde r Schedule Ambulatory referral to [facility] Physical Therapy Outpatient Referral Routine Encounter for rehabilitation Ordered: 04/23/2024 documented as of this encounter Visit Diagnoses Diagnosis Encounter for rehabilitation- Primary documented in this encounter Additional Health Concerns Infection Onset Date Last Indicated Resolved Time CDiff-Risk 09/04/2024 09/04/2024 09/05/2024 2:50 PM EDT documented as of this encounter Care Teams Conciliator Relationship Specialty Start Date End Date Chhaya Sosa NP [address] [place] [address] [email or web address] PCP - General Nurse Practitioner 02/05/23 documented as of this encounter Additional Source Comments The information contained in this document represents components of the legal health record. It is not the complete legal health record.[facility]
--- OUTSIDE RECORDS SUMMARY | 2025-07-19 06:01 | XMS_ITS | Encounter Summary ---
Author Organization [facility] Address [address] [facility] [address] [place] [address] Phone Care Team Providers Care Resistor Winder Name Role Phone Chhaya Sosa NP Primary Care Provider [phone] Encounter Details Date Type Department Care Team (Late st Contact Info) Description 05/18/2024 Procedure Pass [facility] Endoscopy Admitting Dept Virtual Department 30 [place], [place] [phone] Social History Tobacco Use Types Packs/Day Years [...] documented as of this encounter Care Teams Resistor Winder Relationship Specialty Start Date End Date Chhaya Sosa NP [address] [place] [address] [email or web address] PCP - General Nurse Practitioner 02/05/23 documented as of this encounter Additional Source Comments The information contained in this document represents components of the legal health record. It is not the complete legal health record.[facility]
[2025-07-19 06:53] LABS: Anion Gap 11 (12-20); Blood Urea Nitrogen 18 mg/dL (9-16); Calcium 11.0 mg/dL (8.4-10.2); Carbon Dioxide 29 mmol/L (22-29); Chloride 108 mmol/L (96-108); Estimated Glomerular Filt Rate > 60; Potassium 3.3 mmol/L (3.3-5.1); Sodium 145 mmol/L (135-145)
[2025-07-19 07:00] LABS: Hematocrit 34.6 % (37.0-47.0); Hemoglobin 11.9 g/dl (12.0-16.0); Imm Gran Abs Auto 0.03 X10*3/uL (0.00-0.03); Imm Gran Pct Auto 0.5 % (0.0-0.4); Lymphocytes Absolute Auto 1.8 X10*3/uL (1.2-4.9); Mean Corpuscular HGB Conc 34.4 g/dl (31.0-35.0); Mean Corpuscular Hemoglobin 35.0 pg (27.0-33.0); Mean Corpuscular Volume 101.8 fL (80.0-98.0); NRBC Abs Auto 0.000 X10*3/uL (0.0-0.012); NRBC Pct Auto 0.0 /100WBC (0.0-0.2); Platelet Count 143 X10*3/uL (160-400); Red Blood Count 3.40 X10*6/uL (4.20-5.50); White Blood Count 5.9 X10*3/uL (4.8-10.8)
== END 2025-07-19 05:59 | disposition home or self-care (01) ==
LOC: HO.MMNH3L 05:58
PROVIDERS: Visit Provider Family Medicine
DX: I10 Essential (primary) hypertension (principal); J44.9 Chronic obstructive pulmonary disease, unspecified; E78.5 Hyperlipidemia, unspecified
CPT/HCPCS: 36415; 80048; 85025

== ENCOUNTER 2025-07-26 05:45 | Outpatient (REF) | payer MEDICARE, MEDICAID, SELFPAY ==
--- OUTSIDE RECORDS SUMMARY | 2020-11-15 18:21 | XMS_ITS | Encounter Summary ---
Author Organization [facility] Address [address] [place] [phone] Phone Care Team Providers Care Shipping Packer Name Role Phone Marily Lock MD Primary Care Prov ider Encounter Details Date Type Department Care Team (Late st Contact Info) Description 11/15/2020 5:21 PM EST Hospital Encounter [facility] [address] [place] [phone] Margoth Pan CNP [address] [place] [phone] Social History Tobacco Use Types Packs/Day Years [...] 9:49 AM EDT Jovanny Lazaro RN * [place] Suicide Severity Rating Scale (Screener/Recent Self-Report) Question Answer Date of Assessment Author 1. Wish to be (Past 1 Month) No 024 9:49 AM Beth Spaulding RN 2. Non-Specific Active Suici angie Thoughts (Past 1 Month) No 08/31/2024 9:49 AM EDT Beth Lazaro RN 6. Suicidal Behavior (Lifetime) No 9:49 AM Beth Spaulding RN documented as of this encounter Plan of Treatment Not on file documented as of this encounter Procedures Procedure Name Priority Date/Time Associated Diagnosis Comments XR WRIST 3 OR MORE VIEWS (RIGHT) Urgent/patient waiting 11/15/2020 5:49 PM EST Fall from slip, trip, or stumble, initial encounter documented in this encounter Results * XR WRIST 3 OR MORE VIEWS (RIGHT) (11/15/2020 5:49 PM EST) Anatomical Region Laterality Modality Wrist Right Radiographic Christelle ging 11/15/2020 5:54 PM EST Impressions 11/15/2020 5:58 PM EST Acute mildly displaced and dorsally angulated, extra-articular fracture of the distal radial metaphysis. Narrative 11/15/2020 5:58 PM EST TECHNIQUE: XR WRIST 3 OR MORE VIEWS (RIGHT) COMPARISON: None. FINDINGS: Acute mildly displaced fracture of the distal radial metaphysis with dorsal angulation and some diffuse surrounding soft tissue swelling. No definite intra-articular extension of fracture. 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 Mild to moderate degenerative changes of several partially imaged interphalangeal joints. Procedure Note Emma Navas MD - 11/15/2020 TECHNIQUE: XR WRIST 3 OR MORE VIEWS (RIGHT) COMPARISON: None. FINDINGS: Acute mildly displaced fracture of the distal radial metaphysis withdorsal angulation and some diffuse surrounding soft tissue swelling. Nodefinite intra-articular extension of fracture. Chondrocalcinosis of thetrochlea fibrocartilage complex. Severe osteoarthritis of the firstcarpometacarpal joint with prominent hypertrophic change. Mild to moderatedegenerative changes of several partially imaged interphalangeal joints. IMPRESSION: Acute mildly displaced and dorsally angulated, extra-articular fracture ofthe distal radial metaphysis. us Margoth Zach Viviane SOUVENIR ASSEMBLER IMG XR UPPER EXTREMITY Roz l Result documented in this encounter Visit Diagnoses Not on filedocumented in this encounter Additional Health Concerns Infection Onset Date Last Indicated Resolved Time CDiff-Risk 09/04/2024 09/04/2024 09/05/2024 2:50 PM EDT documented as of this encounter Care Teams Shipping Packer Relationship Specialty Start Date End Date Marily Lock MD [address] [place] [phone] [email or web address] PCP - General Family Medicine 12/21/19 02/04/23 documented as of this encounter Additional Source Comments The information contained in this document represents components of the legal health record. It is not the complete legal health record.[facility]
--- OUTSIDE RECORDS SUMMARY | 2020-11-15 18:21 | XMS_ITS | Encounter Summary ---
Author Organization [facility] Address [address] [place] [phone] Phone Care Team Providers Care Food Cooking Machine Operator Name Role Phone Marily Lock MD Primary Care Prov ider Encounter Details Date Type Department Care Team (Late st Contact Info) Description 11/15/2020 5:21 PM EST Hospital Encounter [facility] [address] [place] [address] Margoth Pan CNP [address] [place] [phone] Social History Tobacco Use Types Packs/Day Years [...] 9:49 AM EDT Jovanny Lazaro RN * [place] Suicide Severity Rating Scale (Screener/Recent Self-Report) Question [...] can be considered. us Margoth Zach Viviane HOMOEOPATH IMG XR CHEST Final Resul t documented in this encounter Visit Diagnoses Not on filedocumented in this encounter Additional Health Concerns Infection Onset Date Last Indicated Resolved Time CDiff-Risk 09/04/2024 09/04/2024 09/05/2024 2:50 PM EDT documented as of this encounter Care Teams Food Cooking Machine Operator Relationship Specialty Start Date End Date Marily Lock MD [address] [place] [address] [phone] [email or web address] PCP - General Family Medicine 12/21/19 02/04/23 documented as of this encounter Additional Source Comments The information contained in this document represents components of the legal health record. It is not the complete legal health record.[facility]
--- OUTSIDE RECORDS SUMMARY | 2023-01-25 16:24 | XMS_ITS | Encounter Summary ---
Author Organization [facility] Address [address] [place] [address] Phone Care Team Providers Care Cloth Classer Name Role Phone Marily Lock MD Primary Care Prov ider Encounter Details Date Type Department Care Team (Late st Contact Info) Description 01/25/2023 4:24 PM EDT Hospital Encounter [facility] [address] [place] [address] Margoth Pan CNP [address] [place] [phone] [email or web address] Social History Tobacco Use Types Packs/Day Years [...] 08/31/2024 9:49 AM Jovanny Spaulding RN * [place] Suicide Severity Rating Scale (Screener/Recent Self-Report) Question [...] change. Severe medial tibiofemoral compartment narrowing and nmebaiuh-na-tmpteo lateral tibiofemoral compartment narrowing. Mild patellofemoral compartment narrowing with lateral patellar subluxation. Bulky tricompartmental osteophytes. Chondrocalcinosis. Kkdol-fh-ahmzziak effusion. 1.8 cm dystrophic calcification along the posterior knee soft tissues, chronic in appearance. Procedure Note Shy Nuno MD - 01/25/2023 XR KNEE 4 OR MORE VIEWS (LEFT) COMPARISON: KNEE, BILATERAL FINDINGS: Left Knee: Cortical step-off along the proximal fibula. Minimal lateralsubluxation of the tibia in relation to the femur in the setting ofdegenerative change. Severe medial tibiofemoral compartment narrowing ywsuzzqchhp-ca-jpdlmd lateral tibiofemoral compartment narrowing. Mildpatellofemoral compartment narrowing with lateral patellar subluxation.Bulky tricompartmental osteophytes. Chondrocalcinosis. Xmnye-cl-hkykcrozbpckdijt. 1.8 cm dystrophic calcification along the posterior knee softtissues, chronic in appearance. IMPRESSION: 1. Cortical step-off along the proximal fibula, likely representing aminimally impacted proximal fibular fracture. Correlation with pointtenderness. 2. 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 3. Chondrocalcinosis. Margoth Pan INTERNET SPECIALIST IMG XR LOWER EXTREMITY Roz l Result documented in this encounter Visit Diagnoses Not on filedocumented in this encounter Additional Health Concerns Infection Onset Date Last Indicated Resolved Time CDiff-Risk 09/04/2024 09/04/2024 09/05/2024 2:50 PM EDT documented as of this encounter Care Teams Cloth Classer Relationship Specialty Start Date End Date Marily Lock MD [address] [place] [phone] [email or web address] PCP - General Family Medicine 12/21/19 02/04/23 documented as of this encounter Additional Source Comments The information contained in this document represents components of the legal health record. It is not the complete legal health record.[facility]
[2025-07-26 05:41] LABS: MANUAL DIFF FLAG NO
--- OUTSIDE RECORDS SUMMARY | 2025-07-26 05:49 | XMS_ITS | Clinical Summary ---
Author Organization [facility] [address] [facility] Address [address] [place] [address] Phone Care Team Providers Care Sports Attorney Name Role Phone Saqib Lock MD Primary Care Provi amelia Medical History Medical History Date Comments Current every day smoker DX:Curr ent every day smoker Essential (primary) hypertension DX:Essential (primary) hypertension COPD (chronic obstructive pu lmonary disease) (CMS/HCC V24, CMS/HCC V28) DX:COPD (chronic o bstructive pulmonary disease) ([facility]) Depression DX:Depression Thyroid disease DX:Thyroid disea se [...] Health Maintenance Due Date Last Done Comments RSV Immunization Adult Patients (1 - Risk 60-74 years 1-dose series) 2010 Zoster Vaccines (3 of 3) 06/06/2019 019, 12/31/2011 Cholesterol Screening (Lipid Panel) 10/09/2022 Colorectal Cancer Screening: Colonoscopy 10/09/2022 Falls Risk Assessment 10/09/2022 Hepatitis C Screening 10/09/2022 Medicare Annual Wellness Visit 10/09/2022 Osteoporosis Screening (Bone Density Screening) 10/09/2022 Social Influencers of Health Screening 10/09/2022 Depression Screening 11/11/2024 DTaP,Tdap,and Td Vaccines (2 - Td or Tdap) 03/10/2025 03/10/2015 Breast Cancer Screening 05/21/2025 05/21/2023 COVID-19 Vaccine (3 - 2024-2 6 season) 2025 02/25/2021, 02/02/2021 Influenza Vaccine (#1) 2025 , 08/13/2022, 08/20/2021 Hypertension/CHF/CAD Annual BMP Blood Test 07/27/2025 07/27/2024, 07/20/2024, 01/28/2023 Pneumococcal Vaccine: 50+ Years Completed 09/17/2017, 05/10/2016, 12/10/2011 HIB Vaccines Aged Out No longer eligi [...] to complete this topic RSV Immunization Patients Under 20 months Aged Out No longer eligible b ased on patient's age to complete this topic Varicella Vaccines Aged Out No longer eligible based on patient's age to complete this topic Insurance MEDICAID - [place] MEDICARE Care Teams Sports Attorney Relationship Specialty Start Date End Date Saqib Lock MD [address] [place] [address] PCP - General 10/30/22
--- OUTSIDE RECORDS SUMMARY | 2025-07-26 05:49 | XMS_ITS | Encounter Summary ---
Author Organization [facility] Address [address] [facility] [address] [place] [address] Phone Care Team Providers Care Industrial Maintenance Millwright Name Role Phone Chhaya Sosa NP Primary Care Provider [phone] Encounter Details Date Type Department Care Team (Late st Contact Info) Description 09/02/2024 Procedure Pass [place] Admitting Dept - Virtual Department [address] [place], [place] [id number] Social History Tobacco Use Types Packs/Day Years [...] documented as of this encounter Care Teams Industrial Maintenance Millwright Relationship Specialty Start Date End Date Chhaya Sosa NP [address] [place] [address] [email or web address] PCP - General Nurse Practitioner 02/05/23 documented as of this encounter Additional Source Comments The information contained in this document represents components of the legal health record. It is not the complete legal health record.[facility]
--- OUTSIDE RECORDS SUMMARY | 2025-07-26 05:49 | XMS_ITS | Encounter Summary ---
Author Organization [facility] Address [address] [place] [address] Phone Care Team Providers Care Staff Weapons Officer Name Role Phone Chahya Sosa NP Primary Care Provider [phone] Reason for Referral * Physical Therapy (Routine) - Closed Specialty Diagnoses / Procedures Referred By Antelmo lopez Referred To Contact Physical Therapy Diagnoses Encounter for rehabilitation Chhaya Sosa NP [address] [place] [address] Phone: tel: fax: mailto:[email or web address] [address] [place] [address] Phone: tel: Referral ID Status Reason Start Date Expiration Date Visits Re quested Visits Authorized [id number] Closed 04/23/2024 04/23/2025 1 1 Encounter Details Date Type Department Care Team (Late st Contact Info) Description 04/23/2024 Transcribe Orders [facility] Rehabilitation Services [address] [place] [address] Chhaya Sosa NP [address] [place] [address] [email or web address] Encounter for rehabilitation (Primary Dx) Social History [...] Diagnoses Orde r Schedule Ambulatory referral to [facility] Physical Therapy Outpatient Referral Routine Encounter for rehabilitation Ordered: 04/23/2024 documented as of this encounter Visit Diagnoses Diagnosis Encounter for rehabilitation- Primary documented in this encounter Additional Health Concerns Infection Onset Date Last Indicated Resolved Time CDiff-Risk 09/04/2024 09/04/2024 09/05/2024 2:50 PM EDT documented as of this encounter Care Teams Staff Weapons Officer Relationship Specialty Start Date End Date Chhaya Sosa NP [address] [place] [address] [email or web address] PCP - General Nurse Practitioner 02/05/23 documented as of this encounter Additional Source Comments The information contained in this document represents components of the legal health record. It is not the complete legal health record.[facility]
--- OUTSIDE RECORDS SUMMARY | 2025-07-26 05:49 | XMS_ITS | Encounter Summary ---
Author Organization [facility] Address [address] [facility] [address] [place] [address] Phone Care Team Providers Care Oil Burner Journeyman Name Role Phone Marily Lock MD Primary Care Prov ider Chhaya Sosa NP Primary Care Provider [phone] Encounter Details Date Type Department Care Team (Late st Contact Info) Description 12/01/2020 Ancillary Orders [facility] Orthopedics & Sports Medicine [address] [place] [address] [id number] Lauern Lowe PA-C [address] [place] [address] Orthopedics & Sports Medicine, [facility]. [place], [place] [phone] [email or web address] Social History Tobacco Use Types Packs/Day Years [...] documented as of this encounter Care Teams Oil Burner Journeyman Relationship Specialty Start Date End Date Marily Lock MD [address] [place] [address] [email or web address] PCP - General Family Medicine 12/21/19 02/04/23 Chhaya Sosa NP [address] [place] [address] [email or web address] PCP - General Nurse Practitioner 02/05/23 documented as of this encounter Additional Source Comments The information contained in this document represents components of the legal health record. It is not the complete legal health record.[facility]
--- OUTSIDE RECORDS SUMMARY | 2025-07-26 05:49 | XMS_ITS | Encounter Summary ---
Author Organization [facility] Address [address] [facility] [address] [place] [address] Phone Care Team Providers Care Circuit Court Clerk Name Role Phone Chhaya Sosa NP Primary Care Provider [phone] Encounter Details Date Type Department Care Team (Late st Contact Info) Description 08/10/2024 Procedure Pass [facility] Endoscopy Admitting Dept Virtual Department [address] [place] [address] Social History Tobacco Use Types Packs/Day Years [...] documented as of this encounter Care Teams Circuit Court Clerk Relationship Specialty Start Date End Date Chhaya Sosa NP [address] [place] [address] [email or web address] PCP - General Nurse Practitioner 02/05/23 documented as of this encounter Additional Source Comments The information contained in this document represents components of the legal health record. It is not the complete legal health record.[facility]
--- OUTSIDE RECORDS SUMMARY | 2025-07-26 05:49 | XMS_ITS | Encounter Summary ---
Author Organization [facility] Address [address] [facility] [address] [place] [address] Phone Care Team Providers Care Regional Forester Name Role Phone Chhaya Sosa NP Primary Care Provider [phone] Encounter Details Date Type Department Care Team (Latest Contact Info) Description 10/15/2024 Ancillary Orders [facility] Orthopedics & Sports Medicine [address] [place] [address] [phone] Mana Flores PA-C [address] [place] [address] Orthopedics & Sports Medicine, [facility]. [place], [place] [phone] [email or web address] Fracture, hip (Primary Dx) Social [...] femur documented in this encounter Care Teams Regional Forester Relationship Specialty Start Date End Date Chhaya Sosa NP [address] [place] [address] [email or web address] PCP - General Nurse Practitioner 02/05/23 documented as of this encounter Additional Source Comments The information contained in this document represents components of the legal health record. It is not the complete legal health record.[facility]
--- OUTSIDE RECORDS SUMMARY | 2025-07-26 05:49 | XMS_ITS | Encounter Summary ---
Author Organization [facility] Address [address] [facility] [address] [place] [address] Phone Care Team Providers Care Deck Supervisor Name Role Phone Chhaya Sosa NP Primary Care Provider [phone] Encounter Details Date Type Department Care Team (Late st Contact Info) Description 03/15/2023 Procedure Pass [facility], [address] [address] Social History Tobacco Use Types Packs/Day Years [...] documented as of this encounter Care Teams Deck Supervisor Relationship Specialty Start Date End Date Chhaya Sosa NP [address] [place] [address] [email or web address] PCP - General Nurse Practitioner 02/05/23 documented as of this encounter Additional Source Comments The information contained in this document represents components of the legal health record. It is not the complete legal health record.[facility]
--- OUTSIDE RECORDS SUMMARY | 2025-07-26 05:49 | XMS_ITS | Clinical Summary ---
Author Organization [facility] Address [address] [address] Phone Care Team Providers Care Hydraulic Pile Hammer Operator Name Role Phone Chhaya Sosa NP Primary Care Provider [phone] Allergies No known active allergies Medications sertraline [...] PCP refer to endo at their office, [facility]. Hip fracture 07/14/2024 Assessment & Plan (09/04/2024 [...] (07/16/2024 10:24 AM EDT): Continue diltiazem. Called [facility]. Pt is prescribed irbesrtan/HCTZ 150/12.5, last [...] this topic Medical Devices Implanted Type Area Early Learning Teacher Device Identifier Shelf Expiration Date Model / Serial / Lot 12mm/130 Deg Ti Michael Tfna 235mm/Left Implanted:Qty: 1 on 07/15/2024 by Dheeraj Corley MD at [facility] Nail Left: Femur [employer] 10/10/2033 04.037.245 S / / [id number] Screw Bone 10.0c500hz Fenestrated Aqanife Tfn Advanced - [id number] Implanted:Qty: 1 on 07/15/2024 by Dheeraj Corley MD at [facility] Left: Femur J [employer] 04/10/2034 04.038.205 S / / [id number] Screw Bone 5x38mm Xl25 Locking Medullary Nail Compatible - [id number] Implanted:Qty: 1 on 07/15/2024 by Dheeraj Corley MD at [facility] Left: Femur [employer] 01/08/2034 04.045.038 S / / [id number] Nail Bone 61w011vd 125deg Ti Cannulated Tfn Advanced Right - [id number] Implanted:Qty: 1 on 09/02/2024 by Dheeraj Corley MD at [facility] Right: Leg J [employer] 06/10/2033 04.037.132 S / / [id number] Bone Screw 95mm Fenestrated Aqanife Tfn Advanced - [id number] Implanted:Qty: 1 on 09/02/2024 by Dheeraj Corley MD at [facility] Right: Leg JNJ [employer] 04/10/2034 04.038.195 S / / [id number] Screw Bone 5x48mm Locking Xl25 Recess Medullary Nail Compatible - [id number] Implanted:Qty: 1 on 09/02/2024 by Dheeraj Corley MD at [facility] Right: Leg [employer] 12/11/2032 04.045.048 S / / [id number] Screw Bone 5x50mm Xl25 Locking Im Nail Compatible - [id number] Implanted:Qty: 1 on 09/02/2024 by Dheeraj Corley MD at [facility] Right: Leg [employer] 06/10/2033 04.045.050 / / [id number] Procedures Procedure Name Priority Date/Time Associated Diagnosis [...] EDT) SODIUM 139 133 - 146 mmol/L [facility] CHLORIDE 100 96 - 108 mmol/L [facility] POTASSIUM 3.7 3.3 - 5.1 mmol/L [facility] CO2 34 21 - 35 mmol/L [facility] BUN 22(H) 6 - 19 mg/dL [facility] CREATININE 0.60 0.5 - 1.5 mg/dL [facility] GLUCOSE 97 70 - 99 mg/dL [facility] CALCIUM 10.4(H) 8.4 - 10.3 mg/dL [facility] EGFR 95 >59 mL/min/1.7 3m2 [facility] Comment:Estimated glomerular filtration rate calculated using the CKD-EPI refit equation. ANION GAP 9(L) 10 - 20 mmol/L [facility] Blood 09/05/2024 8:15 AM EDT 09/05/2024 8:21 AM EDT Nina Montes DO LAB BLOOD ORDERABLES Final Result [facility] [address] [place] [address] * BI MAMMOGRAM DIAGNOSTIC WITH TOMOSYNTHESIS WITH [...] 69 Admit Type: Outpatient Gender: Female Room: [place] [address] Referring MD: Marily Guevara MD Exam Type: [...] monitored continuously. The Olympus adult variable colonoscope [id number] #7was introduced through the anus and advanced [...] 12:35 PM Procedure Code(s): --- Professional --- 33522, Colonoscopy, flexible; with removal of tumor(s), polyp(s), or other lesion(s) by snare technique --- Technical --- 42411, Colonoscopy, flexible; with removal of tumor(s), polyp(s), or other lesion(s) by snare technique CPT copyright 2018 [employer]. All rights reserved. The codes documented in this report are preliminary and upon jackaroo reviewmay be revised to meet current compliance requirements. Procedure Date: 04/26/2020 12:35:59 PM [address] [place] [address] Marily Guevara MD GI PROCEDURE ORDER ANDREW Final Result * Outside LDL (05/22/2011) LDL - External 114 50 - 250 mg/ml Historical Provider LAB BLOOD ORDERABLES Roz l Result from Last 3 Months or Most Recently Relevant to Health Maintenance Insurance MEDICARE PART A & [place] [address] [place] [address] [facility] [address] [place] [address] MEDICARE PART A & B Member Subscriber Plan / Payer ( fective 2003-Present) Name:Anabela Gillette Member ID:[id number] Relation to Subscriber:Self Name:Anabela Gillette Subscriber ID:[id number] Payer ID:[id number] Group ID:Not on file Type:Medicare Address: [employer] [address] [place] PART A & B [facility] [place] & B HEALTH MEDICARE PART A & B [facility] Advance Directives For more information, please contact: [phone] (9AM - 5PM [facility] [place] [facility], Saturday-Saturday) Documents on File Type Date Recorded Patient Shift Nurse Manager Expl anation Healthcare Proxy 01/26/2023 signed 01/26 [...] Agents on File Name Relationship Healthcare Agent [facility] Communication Jocelni Castellon Daughter .Primary Health Care Agent (Proxy form on file) Care Teams Hydraulic Pile Hammer Operator Relationship Specialty Start Date End Date Chhaya Sosa NP [address] [place] [address] [email or web address] PCP - General Nurse Practitioner 02/05/23 Additional Source Comments The information contained in this document represents components of the legal health record. It is not the complete legal health record.[facility]
--- OUTSIDE RECORDS SUMMARY | 2025-07-26 05:49 | XMS_ITS | Encounter Summary ---
Author Organization [facility] Address [address] [place] [address] [place] [address] Phone Care Team Providers Care Life Insurance Salesperson Name Role Phone Marily Lock MD Primary Care Prov ider Chhaya Sosa NP Primary Care Provider [phone] Encounter Details Date Type Department Care Team (Late st Contact Info) Description 04/25/2020 Procedure Pass [facility] Endoscopy Admitting Dept Virtual Department [address] [place] [address] Social History Tobacco Use Types Packs/Day Years [...] documented as of this encounter Care Teams Life Insurance Salesperson Relationship Specialty Start Date End Date Marily Lock MD [address] [place] [address] [email or web address] PCP - General Family Medicine 12/21/19 02/04/23 Chhaya Sosa NP [address] [place] [address] [email or web address] PCP - General Nurse Practitioner 02/05/23 documented as of this encounter Additional Source Comments The information contained in this document represents components of the legal health record. It is not the complete legal health record.[facility]
--- OUTSIDE RECORDS SUMMARY | 2025-07-26 05:49 | XMS_ITS | Encounter Summary ---
Author Organization [facility] Address [address] [facility] [address] [place] [address] Phone Care Team Providers Care Outer Diameter Grinder Tool Name Role Phone Marily Lock MD Primary Care Prov ider Chhaya Sosa NP Primary Care Provider [phone] Encounter Details Date Type Department Care Team (Late st Contact Info) Description 12/01/2020 Ancillary Orders [address] [phone] Lauren Lowe PA-C [address] [place] [address] Orthopedics & Sports Medicine, [facility]. [place], [place] [phone] [email or web address] Right wrist pain Social History Tobacco Use [...] documented as of this encounter Care Teams Outer Diameter Grinder Tool Relationship Specialty Start Date End Date Marily Lock MD [address] [place] [address] [email or web address] PCP - General Family Medicine 12/21/19 02/04/23 Chhaya Sosa NP [address] [place] [address] [email or web address] PCP - General Nurse Practitioner 02/05/23 documented as of this encounter Additional Source Comments The information contained in this document represents components of the legal health record. It is not the complete legal health record.[facility]
--- OUTSIDE RECORDS SUMMARY | 2025-07-26 05:49 | XMS_ITS | Encounter Summary ---
Author Organization [facility] Address [address] [facility] [address] [place] [address] Phone Care Team Providers Care Dry Cleaning Checker Name Role Phone Chhaya Sosa NP Primary Care Provider [phone] Encounter Details Date Type Department Care Team (Late st Contact Info) Description 07/15/2024 Procedure Pass [place] Admitting Dept - Virtual Department [address] [place] [address] Social History Tobacco Use Types Packs/Day Years [...] documented as of this encounter Care Teams Dry Cleaning Checker Relationship Specialty Start Date End Date Chhaya Sosa NP [address] [place] [address] [email or web address] PCP - General Nurse Practitioner 02/05/23 documented as of this encounter Additional Source Comments The information contained in this document represents components of the legal health record. It is not the complete legal health record.[facility]
--- OUTSIDE RECORDS SUMMARY | 2025-07-26 05:49 | XMS_ITS | Encounter Summary ---
Author Organization [facility] Address [address] [facility] [address] [place] [address] Phone Care Team Providers Care High Lead Yarder Name Role Phone Chhaya Sosa NP Primary Care Provider [phone] Encounter Details Date Type Department Care Team (Late st Contact Info) Description 03/15/2023 Procedure Pass [facility], [address] [address] Social History Tobacco Use Types Packs/Day Years [...] documented as of this encounter Care Teams High Lead Yarder Relationship Specialty Start Date End Date Chhaya Sosa NP [address] [place] [address] [email or web address] PCP - General Nurse Practitioner 02/05/23 documented as of this encounter Additional Source Comments The information contained in this document represents components of the legal health record. It is not the complete legal health record.[facility]
--- OUTSIDE RECORDS SUMMARY | 2025-07-26 05:49 | XMS_ITS | Encounter Summary ---
Author Organization [facility] Address [address] [place] [address] [place] [address] Phone Care Team Providers Care Tablet Making Machine Operator Helper Name Role Phone Marily Lock MD Primary Care Prov ider Chhaya Sosa NP Primary Care Provider [phone] Encounter Details Date Type Department Care Team (Late st Contact Info) Description 04/26/2020 Procedure Pass [facility] Endoscopy Admitting Dept Virtual Department 30 [place] [address] Social History Tobacco Use Types Packs/Day Years [...] documented as of this encounter Care Teams Tablet Making Machine Operator Helper Relationship Specialty Start Date End Date Marily Lock MD [address] [place] [address] [email or web address] PCP - General Family Medicine 12/21/19 02/04/23 Chhaya Sosa NP [address] [place] [address] [email or web address] PCP - General Nurse Practitioner 02/05/23 documented as of this encounter Additional Source Comments The information contained in this document represents components of the legal health record. It is not the complete legal health record.[facility]
--- OUTSIDE RECORDS SUMMARY | 2025-07-26 05:49 | XMS_ITS | Encounter Summary ---
Author Organization [facility] Address [address] [facility] [address] [place] [address] Phone Care Team Providers Care Hazmat Cdl Driver Name Role Phone Chhaya Sosa NP Primary Care Provider [phone] Encounter Details Date Type Department Care Team (Late st Contact Info) Description 05/18/2024 Procedure Pass [facility] Endoscopy Admitting Dept Virtual Department 30 [place] [address] Social History Tobacco Use Types Packs/Day Years [...] documented as of this encounter Care Teams Hazmat Cdl Driver Relationship Specialty Start Date End Date Chhaya Sosa NP [address] [place] [address] [email or web address] PCP - General Nurse Practitioner 02/05/23 documented as of this encounter Additional Source Comments The information contained in this document represents components of the legal health record. It is not the complete legal health record.[facility]
[2025-07-26 06:18] LABS: Hematocrit 35.5 % (37.0-47.0); Hemoglobin 11.8 g/dl (12.0-16.0); Imm Gran Abs Auto 0.02 X10*3/uL (0.00-0.03); Imm Gran Pct Auto 0.4 % (0.0-0.4); Lymphocytes Absolute Auto 2.0 X10*3/uL (1.2-4.9); Mean Corpuscular HGB Conc 33.2 g/dl (31.0-35.0); Mean Corpuscular Hemoglobin 34.4 pg (27.0-33.0); Mean Corpuscular Volume 103.5 fL (80.0-98.0); NRBC Abs Auto 0.000 X10*3/uL (0.0-0.012); NRBC Pct Auto 0.0 /100WBC (0.0-0.2); Platelet Count 147 X10*3/uL (160-400); Red Blood Count 3.43 X10*6/uL (4.20-5.50); White Blood Count 5.3 X10*3/uL (4.8-10.8)
[2025-07-26 06:48] LABS: Anion Gap 11 (12-20); Blood Urea Nitrogen 16 mg/dL (9-16); Calcium 10.9 mg/dL (8.4-10.2); Carbon Dioxide 29 mmol/L (22-29); Chloride 107 mmol/L (96-108); Estimated Glomerular Filt Rate > 60; Potassium 3.4 mmol/L (3.3-5.1); Sodium 144 mmol/L (135-145)
== END 2025-07-26 05:46 | disposition home or self-care (01) ==
LOC: HO.MMNH3L 05:45
PROVIDERS: Visit Provider Family Medicine
DX: I10 Essential (primary) hypertension (principal); J44.9 Chronic obstructive pulmonary disease, unspecified; E78.5 Hyperlipidemia, unspecified
CPT/HCPCS: 36415; 80048; 85025

== ENCOUNTER 2025-08-02 07:17 | Outpatient (REF) | payer MEDICARE, MEDICAID, SELFPAY ==
--- OUTSIDE RECORDS SUMMARY | 2020-11-15 18:21 | XMS_ITS | Encounter Summary ---
Author Organization [facility] Address [address] [place] [phone] Phone Care Team Providers Care Director Fundraising Name Role Phone Marily Lock MD Primary Care Prov ider Encounter Details Date Type Department Care Team (Late st Contact Info) Description 11/15/2020 5:21 PM EST Hospital Encounter [facility] [address] [place] [phone] Margoth Pan CNP [address] [place] [address] [email or web address] Social History Tobacco Use Types Packs/Day Years [...] 9:49 AM EDT Jovanny Lazaro RN * [place] Suicide Severity Rating Scale (Screener/Recent Self-Report) Question [...] can be considered. us Margoth Zach Viviane WIRE STITCHER OPERATOR IMG XR CHEST Final Resul t documented in this encounter Visit Diagnoses Not on filedocumented in this encounter Additional Health Concerns Infection Onset Date Last Indicated Resolved Time CDiff-Risk 09/04/2024 09/04/2024 09/05/2024 2:50 PM EDT documented as of this encounter Care Teams Director Fundraising Relationship Specialty Start Date End Date Marily Lock MD [address] [place] [phone] [email or web address] PCP - General Family Medicine 12/21/19 02/04/23 documented as of this encounter Additional Source Comments The information contained in this document represents components of the legal health record. It is not the complete legal health record.[facility]
--- OUTSIDE RECORDS SUMMARY | 2020-11-15 18:21 | XMS_ITS | Encounter Summary ---
Author Organization [facility] Address [address] [place] [address] Phone Care Team Providers Care Production Posting Clerk Name Role Phone Marily Lock MD Primary Care Prov ider Encounter Details Date Type Department Care Team (Late st Contact Info) Description 11/15/2020 5:21 PM EST Hospital Encounter [facility] [address] [place] [address] Margoth Pan CNP [address] [place] [phone] [email or web address] Social History Tobacco Use Types Packs/Day Years [...] 9:49 AM EDT Jovanny Lazaro RN * [place] Suicide Severity Rating Scale (Screener/Recent Self-Report) Question [...] distal radial metaphysis. us Margoth Zach Viviane MOLECULAR MODELER IMG XR UPPER EXTREMITY Roz l Result documented in this encounter Visit Diagnoses Not on filedocumented in this encounter Additional Health Concerns Infection Onset Date Last Indicated Resolved Time CDiff-Risk 09/04/2024 09/04/2024 09/05/2024 2:50 PM EDT documented as of this encounter Care Teams Production Posting Clerk Relationship Specialty Start Date End Date Marily Lock MD [address] [place] [phone] [email or web address] PCP - General Family Medicine 12/21/19 02/04/23 documented as of this encounter Additional Source Comments The information contained in this document represents components of the legal health record. It is not the complete legal health record.[facility]
--- OUTSIDE RECORDS SUMMARY | 2023-01-25 16:24 | XMS_ITS | Encounter Summary ---
Author Organization [facility] Address [address] [place] [address] Phone Care Team Providers Care Hotel Front Desk Agent Name Role Phone Marily Lock MD Primary Care Prov ider Encounter Details Date Type Department Care Team (Late st Contact Info) Description 01/25/2023 4:24 PM EDT Hospital Encounter [facility] [address] [place] [phone] Margoth Pan CNP [address] [place] [phone] [email or web address] Social History Tobacco Use Types Packs/Day Years [...] 08/31/2024 9:49 AM Jovanny Spaulding RN * [place] Suicide Severity Rating Scale (Screener/Recent Self-Report) Question [...] change. Severe medial tibiofemoral compartment narrowing and xkoqfahm-ee-cxfibn lateral tibiofemoral compartment narrowing. Mild patellofemoral compartment narrowing with lateral patellar subluxation. Bulky tricompartmental osteophytes. Chondrocalcinosis. Eczry-er-nxnyhsqn effusion. 1.8 cm dystrophic calcification along the posterior knee soft tissues, chronic in appearance. Procedure Note Shy Nuno MD - 01/25/2023 XR KNEE 4 OR MORE VIEWS (LEFT) COMPARISON: KNEE, BILATERAL FINDINGS: Left Knee: Cortical step-off along the proximal fibula. Minimal lateralsubluxation of the tibia in relation to the femur in the setting ofdegenerative change. Severe medial tibiofemoral compartment narrowing ikyuvrxtedm-aw-xhbyon lateral tibiofemoral compartment narrowing. Mildpatellofemoral compartment narrowing with lateral patellar subluxation.Bulky tricompartmental osteophytes. Chondrocalcinosis. Fnukg-mo-egxglvjkzihzzxgp. 1.8 cm dystrophic calcification along the posterior knee softtissues, chronic in appearance. IMPRESSION: 1. Cortical step-off along the proximal fibula, likely representing aminimally impacted proximal fibular fracture. Correlation with pointtenderness. 2. 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 3. Chondrocalcinosis. Margoth Pan PERSON INVESTIGATOR IMG XR LOWER EXTREMITY Roz l Result documented in this encounter Visit Diagnoses Not on filedocumented in this encounter Additional Health Concerns Infection Onset Date Last Indicated Resolved Time CDiff-Risk 09/04/2024 09/04/2024 09/05/2024 2:50 PM EDT documented as of this encounter Care Teams Hotel Front Desk Agent Relationship Specialty Start Date End Date Marily Lock MD [address] [place] [address] [email or web address] PCP - General Family Medicine 12/21/19 02/04/23 documented as of this encounter Additional Source Comments The information contained in this document represents components of the legal health record. It is not the complete legal health record.[facility]
[2025-08-02 06:41] LABS: MANUAL DIFF FLAG NO
[2025-08-02 07:17] LABS: Hematocrit 36.3 % (37.0-47.0); Hemoglobin 12.4 g/dl (12.0-16.0); Imm Gran Abs Auto 0.01 X10*3/uL (0.00-0.03); Imm Gran Pct Auto 0.2 % (0.0-0.4); Lymphocytes Absolute Auto 2.0 X10*3/uL (1.2-4.9); Mean Corpuscular HGB Conc 34.2 g/dl (31.0-35.0); Mean Corpuscular Hemoglobin 34.9 pg (27.0-33.0); Mean Corpuscular Volume 102.3 fL (80.0-98.0); NRBC Abs Auto 0.000 X10*3/uL (0.0-0.012); NRBC Pct Auto 0.0 /100WBC (0.0-0.2); Platelet Count 138 X10*3/uL (160-400); Red Blood Count 3.55 X10*6/uL (4.20-5.50); White Blood Count 6.0 X10*3/uL (4.8-10.8)
--- OUTSIDE RECORDS SUMMARY | 2025-08-02 07:21 | XMS_ITS | Clinical Summary ---
Author Organization [facility] [address] [facility] Address [address] [place] [address] Phone Care Team Providers Care Grinder Carbon Plant Name Role Phone Saqib Lock MD Primary Care Provi amelia Medical History Medical History Date Comments Current every day smoker DX:Curr ent every day smoker Essential (primary) hypertension DX:Essential (primary) hypertension COPD (chronic obstructive pu lmonary disease) (CMS/HCC V24, CMS/HCC V28) DX:COPD (chronic o bstructive pulmonary disease) ([facility]) Depression DX:Depression Thyroid disease DX:Thyroid [...] Insurance MEDICAID - [place] MEDICARE Care Teams Grinder Carbon Plant Relationship Specialty Start Date End Date Saqib Lock MD [address] [place] [address] PCP - General 10/30/22
--- OUTSIDE RECORDS SUMMARY | 2025-08-02 07:21 | XMS_ITS | Encounter Summary ---
Author Organization [facility] Address [address] [place] [address] [place] [address] Phone Care Team Providers Care Human Resources Temp Name Role Phone Marily Lock MD Primary Care Prov ider Chhaya Sosa NP Primary Care Provider [phone] Encounter Details Date Type Department Care Team (Late st Contact Info) Description 04/26/2020 Procedure Pass [facility] Endoscopy Admitting Dept Virtual Department [address] [place] [address] Social History Tobacco Use Types Packs/Day Years [...] documented as of this encounter Care Teams Human Resources Temp Relationship Specialty Start Date End Date Marily Lock MD [address] [place] [address] [email or web address] PCP - General Family Medicine 12/21/19 02/04/23 Chhaya Sosa NP [address] [place] [address] [email or web address] PCP - General Nurse Practitioner 02/05/23 documented as of this encounter Additional Source Comments The information contained in this document represents components of the legal health record. It is not the complete legal health record.[facility]
--- OUTSIDE RECORDS SUMMARY | 2025-08-02 07:21 | XMS_ITS | Encounter Summary ---
Author Organization [facility] Address [address] [place] [address] [place] [address] Phone Care Team Providers Care Machinist 2Nd Shift Name Role Phone Marily Lock MD Primary Care Prov ider Chhaya Sosa NP Primary Care Provider Encounter Details Date Type Department Care Team (Late st Contact Info) Description 04/25/2020 Procedure Pass [facility] Endoscopy Admitting Dept Virtual Department 30 [place] [address] Social History Tobacco Use Types Packs/Day Years [...] documented as of this encounter Care Teams Machinist 2Nd Shift Relationship Specialty Start Date End Date Marily Lock MD [address] [place] [address] [email or web address] PCP - General Family Medicine 12/21/19 02/04/23 Chhaya Sosa NP [address] [place] [address] [email or web address] PCP - General Nurse Practitioner 02/05/23 documented as of this encounter Additional Source Comments The information contained in this document represents components of the legal health record. It is not the complete legal health record.[facility]
--- OUTSIDE RECORDS SUMMARY | 2025-08-02 07:21 | XMS_ITS | Encounter Summary ---
Author Organization [facility] Address [address] [facility] [address] [place] [address] Phone Care Team Providers Care Meter Supervisor Name Role Phone Marily Lock MD Primary Care Prov ider Chhaya Sosa NP Primary Care Provider Encounter Details Date Type Department Care Team (Late st Contact Info) Description 12/01/2020 Ancillary Orders [address] [phone] Lauren Lowe PA-C [address] [place] [address] Orthopedics & Sports Medicine, [facility] [place], [place] [id number] [email or web address] Right wrist pain Social History Tobacco Use [...] documented as of this encounter Care Teams Meter Supervisor Relationship Specialty Start Date End Date Marily Lock MD [address] [place] [address] [email or web address] PCP - General Family Medicine 12/21/19 02/04/23 Chhaya Sosa NP [address] [place] [address] [email or web address] PCP - General Nurse Practitioner 02/05/23 documented as of this encounter Additional Source Comments The information contained in this document represents components of the legal health record. It is not the complete legal health record.[facility]
--- OUTSIDE RECORDS SUMMARY | 2025-08-02 07:21 | XMS_ITS | Encounter Summary ---
Author Organization [facility] Address [address] [facility] [address] [place] [address] Phone Care Team Providers Care Civil Structural Designer Name Role Phone Marily Lock MD Primary Care Prov ider Chhaya Sosa NP Primary Care Provider [phone] Encounter Details Date Type Department Care Team (Late st Contact Info) Description 12/01/2020 Ancillary Orders [facility] Orthopedics & Sports Medicine [address] [place] [address] [phone] Lauren Lowe PA-C [address] [place] [address] Orthopedics & Sports Medicine, [facility] [place], [place] [phone] [email or web address] Social History Tobacco Use Types Packs/Day Years [...] documented as of this encounter Care Teams Civil Structural Designer Relationship Specialty Start Date End Date Marily Lock MD [address] [place] [address] [email or web address] PCP - General Family Medicine 12/21/19 02/04/23 Chhaya Sosa NP [address] [place] [address] [email or web address] PCP - General Nurse Practitioner 02/05/23 documented as of this encounter Additional Source Comments The information contained in this document represents components of the legal health record. It is not the complete legal health record.[facility]
--- OUTSIDE RECORDS SUMMARY | 2025-08-02 07:21 | XMS_ITS | Encounter Summary ---
Author Organization [facility] Address [address] [facility] [address] [place] [address] Phone Care Team Providers Care Meat Pumper Name Role Phone Chhaya Sosa NP Primary Care Provider [phone] Encounter Details Date Type Department Care Team (Late st Contact Info) Description 03/15/2023 Procedure Pass [facility], [address] [address] Social History Tobacco Use Types Packs/Day Years [...] documented as of this encounter Care Teams Meat Pumper Relationship Specialty Start Date End Date Chhaya Sosa NP [address] [place] [address] [email or web address] PCP - General Nurse Practitioner 02/05/23 documented as of this encounter Additional Source Comments The information contained in this document represents components of the legal health record. It is not the complete legal health record.[facility]
--- OUTSIDE RECORDS SUMMARY | 2025-08-02 07:21 | XMS_ITS | Encounter Summary ---
Author Organization [facility] Address [address] [facility] [address] [place] [address] Phone Care Team Providers Care Aquatic Performer Name Role Phone Chhaya Sosa NP Primary Care Provider [phone] Encounter Details Date Type Department Care Team (Late st Contact Info) Description 03/15/2023 Procedure Pass [facility], [address] [address] Social History Tobacco Use Types Packs/Day Years [...] documented as of this encounter Care Teams Aquatic Performer Relationship Specialty Start Date End Date Chhaya Sosa NP [address] [place] [address] [email or web address] PCP - General Nurse Practitioner 02/05/23 documented as of this encounter Additional Source Comments The information contained in this document represents components of the legal health record. It is not the complete legal health record.[facility]
--- OUTSIDE RECORDS SUMMARY | 2025-08-02 07:22 | XMS_ITS | Encounter Summary ---
Author Organization [facility] Address [address] [facility] [address] [place] [address] Phone Care Team Providers Care Inventory Control Manager Name Role Phone Chhaya Sosa NP Primary Care Provider Encounter Details Date Type Department Care Team (Late st Contact Info) Description 09/02/2024 Procedure Pass [place] Admitting Dept - Virtual Department 30 [place], [place] [phone] Social History Tobacco Use Types Packs/Day Years [...] documented as of this encounter Care Teams Inventory Control Manager Relationship Specialty Start Date End Date Chhaya Sosa NP [address] [place] [place] [address] [email or web address] PCP - General Nurse Practitioner 02/05/23 documented as of this encounter Additional Source Comments The information contained in this document represents components of the legal health record. It is not the complete legal health record.[facility]
--- OUTSIDE RECORDS SUMMARY | 2025-08-02 07:22 | XMS_ITS | Encounter Summary ---
Author Organization [facility] Address [address] [facility] [address] [place] [address] Phone Care Team Providers Care Fibre Cement Moulder Name Role Phone Chhaya Sosa NP Primary Care Provider [phone] Encounter Details Date Type Department Care Team (Late st Contact Info) Description 07/15/2024 Procedure Pass [place] Admitting Dept - Virtual Department [address] [place] [address] Social History Tobacco Use Types Packs/Day Years [...] documented as of this encounter Care Teams Fibre Cement Moulder Relationship Specialty Start Date End Date Chhaya Sosa NP [address] [place] [address] [email or web address] PCP - General Nurse Practitioner 02/05/23 documented as of this encounter Additional Source Comments The information contained in this document represents components of the legal health record. It is not the complete legal health record.[facility]
--- OUTSIDE RECORDS SUMMARY | 2025-08-02 07:22 | XMS_ITS | Clinical Summary ---
Author Organization [facility] Address [address] [address] Phone Care Team Providers Care Cotton Cleaner Name Role Phone Chhaya Sosa NP Primary Care Provider [phone] Allergies No known active allergies Medications sertraline [...] PCP refer to endo at their office, [facility]. Hip fracture 07/14/2024 Assessment & Plan (09/04/2024 [...] (07/16/2024 10:24 AM EDT): Continue diltiazem. Called [facility]. Pt is prescribed irbesrtan/HCTZ [...] this topic Medical Devices Implanted Type Area Blood Bank Laboratory Professional Device Identifier Shelf Expiration Date Model / Serial / Lot 12mm/130 Deg Ti Michael Tfna 235mm/Left Implanted:Qty: 1 on 07/15/2024 by Dheeraj Corley MD at [facility] Nail Left: Femur [employer] 10/10/2033 04.037.245 S / / [id number] Screw Bone 10.2g788pn Fenestrated Aqanife Tfn Advanced - [id number] Implanted:Qty: 1 on 07/15/2024 by Dheeraj Corley MD at [facility] Left: Femur J [employer] 04/10/2034 04.038.205 S / / [id number] Screw Bone 5x38mm Xl25 Locking Medullary Nail Compatible - [id number] Implanted:Qty: 1 on 07/15/2024 by Dheeraj Corley MD at [facility] Left: Femur [employer] 01/08/2034 04.045.038 S / / [id number] Nail Bone 33n210qh 125deg Ti Cannulated Tfn Advanced Right - [id number] Implanted:Qty: 1 on 09/02/2024 by Dheeraj Corley MD at [facility] Right: Leg J [employer] 06/10/2033 04.037.132 S / / [id number] Bone Screw 95mm Fenestrated Aqanife Tfn Advanced - [id number] Implanted:Qty: 1 on 09/02/2024 by Dheeraj Corley MD at [facility] Right: Leg JNJ [employer] 04/10/2034 04.038.195 S / / [id number] Screw Bone 5x48mm Locking Xl25 Recess Medullary Nail Compatible - [id number] Implanted:Qty: 1 on 09/02/2024 by Dheeraj Corley MD at [facility] Right: Leg [employer] 12/11/2032 04.045.048 S / / [id number] Screw Bone 5x50mm Xl25 Locking Im Nail Compatible - [id number] Implanted:Qty: 1 on 09/02/2024 by Dheeraj Corley MD at [facility] Right: Leg [employer] 06/10/2033 04.045.050 / / [id number] Procedures Procedure Name Priority Date/Time Associated Diagnosis [...] EDT) SODIUM 139 133 - 146 mmol/L [facility] CHLORIDE 100 96 - 108 mmol/L [facility] POTASSIUM 3.7 3.3 - 5.1 mmol/L [facility] CO2 34 21 - 35 mmol/L [facility] BUN 22(H) 6 - 19 mg/dL [facility] CREATININE 0.60 0.5 - 1.5 mg/dL [facility] GLUCOSE 97 70 - 99 mg/dL [facility] CALCIUM 10.4(H) 8.4 - 10.3 mg/dL [facility] EGFR 95 >59 mL/min/1.7 3m2 [facility] Comment:Estimated glomerular filtration rate calculated using the CKD-EPI refit equation. ANION GAP 9(L) 10 - 20 mmol/L [facility] Blood 09/05/2024 8:15 AM EDT 09/05/2024 8:21 AM EDT Nina Montes DO LAB BLOOD ORDERABLES Final Result [facility] [address] [place] [address] * BI MAMMOGRAM DIAGNOSTIC WITH TOMOSYNTHESIS WITH [...] 69 Admit Type: Outpatient Gender: Female Room: [place] [address] Referring MD: Marily Guevara MD Exam Type: [...] monitored continuously. The Olympus adult variable colonoscope [id number] #7was introduced through the anus and advanced [...] 12:35 PM Procedure Code(s): --- Professional --- 34687, Colonoscopy, flexible; with removal of tumor(s), polyp(s), or other lesion(s) by snare technique --- Technical --- 46739, Colonoscopy, flexible; with removal of tumor(s), polyp(s), or other lesion(s) by snare technique CPT copyright 2018 [employer]. All rights reserved. The codes documented in this report are preliminary and upon pre planning advisor reviewmay be revised to meet current compliance requirements. Procedure Date: 04/26/2020 12:35:59 PM [address] [place] [address] Marily Guevara MD GI PROCEDURE ORDER ANDREW Final Result * Outside LDL (05/22/2011) LDL - External 114 50 - 250 mg/ml Historical Provider LAB BLOOD ORDERABLES Roz l Result from Last 3 Months or Most Recently Relevant to Health Maintenance Insurance MEDICARE PART A & [place] [address] [place] [address] MEDICARE PART A & [facility] [address] [place] [address] MEDICARE PART A & B Member Subscriber Plan / Payer ( fective 2003-Present) Name:Anabela Gillette Member ID:[id number] Relation to Subscriber:Self Name:Anabela Gillette Subscriber ID:[id number] Payer ID:[id number] Group ID:Not on file Type:Medicare Address: [employer] [address] [place] A & B [facility] PART [facility] & [place] & B HEALTH MEDICARE PART A & B [facility] Advance Directives For more information, please contact: [phone] (9AM - 5PM [facility], Saturday-Saturday) Documents on File Type Date Recorded Patient Crude Unit Operator Expl anation Healthcare Proxy 01/26/2023 signed 01/26 [...] Agents on File Name Relationship Healthcare Agent [facility] Communication Jocelin Castellon Daughter .Primary Health Care Agent (Proxy form on file) Care Teams Cotton Cleaner Relationship Specialty Start Date End Date Chhaya Sosa NP [address] [place] [address] [email or web address] PCP - General Nurse Practitioner 02/05/23 Additional Source Comments The information contained in this document represents components of the legal health record. It is not the complete legal health record.[facility]
--- OUTSIDE RECORDS SUMMARY | 2025-08-02 07:22 | XMS_ITS | Encounter Summary ---
Author Organization [facility] Address [address] [facility] [address] [place] [address] Phone Care Team Providers Care Sequins Spooler Name Role Phone Chhaya Sosa NP Primary Care Provider [phone] Encounter Details Date Type Department Care Team (Latest Contact Info) Description 10/15/2024 Ancillary Orders [facility] Orthopedics & Sports Medicine [address] [place] [address] [phone] Mana Flores PA-C [address] [place] [address] Orthopedics & Sports Medicine, [facility] [place], [place] [phone] [email or web address] Fracture, hip (Primary Dx) Social [...] femur documented in this encounter Care Teams Sequins Spooler Relationship Specialty Start Date End Date Chhaya Sosa NP [address] [place] [address] [email or web address] PCP - General Nurse Practitioner 02/05/23 documented as of this encounter Additional Source Comments The information contained in this document represents components of the legal health record. It is not the complete legal health record.[facility]
--- OUTSIDE RECORDS SUMMARY | 2025-08-02 07:22 | XMS_ITS | Encounter Summary ---
Author Organization [facility] Address [address] [place] [address] Phone Care Team Providers Care Bulk Tank Driver Name Role Phone Chhaya Sosa NP Primary Care Provider [phone] Reason for Referral * Physical Therapy (Routine) - Closed Specialty Diagnoses / Procedures Referred By Antelmo lopez Referred To Contact Physical Therapy Diagnoses Encounter for rehabilitation Chhaya Sosa NP [address] [place] [address] Phone: tel: fax: [email or web address] [address] [place] [address] Phone: tel: Referral ID Status Reason Start Date Expiration Date Visits Re quested Visits Authorized [id number] Closed 04/23/2024 04/23/2025 1 1 Encounter Details Date Type Department Care Team (Late st Contact Info) Description 04/23/2024 Transcribe Orders [facility] Rehabilitation Services [address] [place] [address] Chhaya Sosa NP [address] [place] [address] [email or web address] Encounter for rehabilitation (Primary Dx) Social History [...] Diagnoses Orde r Schedule Ambulatory referral to [facility] Physical Therapy Outpatient Referral Routine Encounter for rehabilitation Ordered: 04/23/2024 documented as of this encounter Visit Diagnoses Diagnosis Encounter for rehabilitation- Primary documented in this encounter Additional Health Concerns Infection Onset Date Last Indicated Resolved Time CDiff-Risk 09/04/2024 09/04/2024 09/05/2024 2:50 PM EDT documented as of this encounter Care Teams Bulk Tank Driver Relationship Specialty Start Date End Date Chhaya Sosa NP [address] [place] [address] [email or web address] PCP - General Nurse Practitioner 02/05/23 documented as of this encounter Additional Source Comments The information contained in this document represents components of the legal health record. It is not the complete legal health record.[facility]
--- OUTSIDE RECORDS SUMMARY | 2025-08-02 07:22 | XMS_ITS | Encounter Summary ---
Author Organization [facility] Address [address] [facility] [address] [place] [address] Phone Care Team Providers Care Packaging Inspector Name Role Phone Chhaya Sosa NP Primary Care Provider [phone] Encounter Details Date Type Department Care Team (Late st Contact Info) Description 08/10/2024 Procedure Pass [facility] Endoscopy Admitting Dept Virtual Department [address] [place] [address] Social History Tobacco Use Types Packs/Day Years [...] as of this encounter Care Teams Packaging Inspector Relationship Specialty Start Date End Date Chhaya Sosa NP [address] [place] [address] [email or web address] PCP - General Nurse Practitioner 02/05/23 documented as of this encounter Additional Source Comments The information contained in this document represents components of the legal health record. It is not the complete legal health record.[facility]
--- OUTSIDE RECORDS SUMMARY | 2025-08-02 07:22 | XMS_ITS | Encounter Summary ---
Author Organization [facility] Address [address] [facility] [address] [place] [address] Phone Care Team Providers Care Signal Technician Name Role Phone Chhaya Sosa NP Primary Care Provider [phone] Encounter Details Date Type Department Care Team (Late st Contact Info) Description 05/18/2024 Procedure Pass [facility] Endoscopy Admitting Dept Virtual Department [address] [place] [address] Social History Tobacco Use Types Packs/Day Years [...] documented as of this encounter Care Teams Signal Technician Relationship Specialty Start Date End Date Chhaya Sosa NP [address] [place] [address] [email or web address] PCP - General Nurse Practitioner 02/05/23 documented as of this encounter Additional Source Comments The information contained in this document represents components of the legal health record. It is not the complete legal health record.[facility]
[2025-08-02 07:39] LABS: Anion Gap 9 (12-20); Blood Urea Nitrogen 12 mg/dL (9-16); Calcium 10.8 mg/dL (8.4-10.2); Carbon Dioxide 32 mmol/L (22-29); Chloride 107 mmol/L (96-108); Estimated Glomerular Filt Rate > 60; Potassium 3.1 mmol/L (3.3-5.1); Sodium 145 mmol/L (135-145)
== END 2025-08-02 07:18 | disposition home or self-care (01) ==
LOC: HO.MMNH3L 07:17
PROVIDERS: Visit Provider Family Medicine
DX: I10 Essential (primary) hypertension (principal); E78.5 Hyperlipidemia, unspecified; J44.9 Chronic obstructive pulmonary disease, unspecified
CPT/HCPCS: 36415; 80048; 85025

== ENCOUNTER 2025-08-03 08:13 | Day surgery (SDC) | payer MEDICARE, MEDICAID, SELFPAY ==
--- OUTSIDE RECORDS SUMMARY | 2020-11-15 18:21 | XMS_ITS | Encounter Summary ---
Author Organization [facility] Address [address] [place] [address] Phone Care Team Providers Care In Store Marketing Associate Name Role Phone Marily Lock MD Primary Care Prov ider Encounter Details Date Type Department Care Team (Late st Contact Info) Description 11/15/2020 5:21 PM EST Hospital Encounter [facility] [address] [place] [phone] Margoth Pan CNP [address] [place] [phone] Social History Tobacco Use Types Packs/Day Years [...] 9:49 AM EDT Jovanny Lazaro RN * [place] Suicide Severity Rating Scale (Screener/Recent Self-Report) Question [...] can be considered. us Margoth Zach Viviane COLLECTIONS DIRECTOR IMG XR CHEST Final Resul t documented in this encounter Visit Diagnoses Not on filedocumented in this encounter Additional Health Concerns Infection Onset Date Last Indicated Resolved Time CDiff-Risk 09/04/2024 09/04/2024 09/05/2024 2:50 PM EDT documented as of this encounter Care Teams In Store Marketing Associate Relationship Specialty Start Date End Date Marily Lock MD [address] [place] [address] [phone] [email or web address] PCP - General Family Medicine 12/21/19 02/04/23 documented as of this encounter Additional Source Comments The information contained in this document represents components of the legal health record. It is not the complete legal health record.[facility]
--- OUTSIDE RECORDS SUMMARY | 2020-11-15 18:21 | XMS_ITS | Encounter Summary ---
Author Organization [facility] Address [address] [place] [address] Phone Care Team Providers Care Partner Integration Planner Name Role Phone Marily Lock MD Primary Care Prov ider Encounter Details Date Type Department Care Team (Late st Contact Info) Description 11/15/2020 5:21 PM EST Hospital Encounter [facility] [address] [place] [address] Margoth Pan CNP [address] [place] [address] Social History Tobacco Use Types Packs/Day Years [...] 9:49 AM EDT Jovanny Lazaro RN * [place] Suicide Severity Rating Scale (Screener/Recent Self-Report) Question Answer Date of Assessment Author 1. Wish to be (Past 1 Month) No 024 9:49 AM Beth pSaulding RN 2. Non-Specific Active Suici angie Thoughts [...] distal radial metaphysis. us Margoth Zach Viviane SALES ENGINEERING MANAGER IMG XR UPPER EXTREMITY Roz l Result documented in this encounter Visit Diagnoses Not on filedocumented in this encounter Additional Health Concerns Infection Onset Date Last Indicated Resolved Time CDiff-Risk 09/04/2024 09/04/2024 09/05/2024 2:50 PM EDT documented as of this encounter Care Teams Partner Integration Planner Relationship Specialty Start Date End Date Marily Lock MD [address] [place] [phone] [email or web address] PCP - General Family Medicine 12/21/19 02/04/23 documented as of this encounter Additional Source Comments The information contained in this document represents components of the legal health record. It is not the complete legal health record.[facility]
--- OUTSIDE RECORDS SUMMARY | 2023-01-25 16:24 | XMS_ITS | Encounter Summary ---
Author Organization [facility] Address [address] [place] [phone] Phone Care Team Providers Care Assistant Drafter Name Role Phone Marily Lock MD Primary Care Prov ider Encounter Details Date Type Department Care Team (Late st Contact Info) Description 01/25/2023 4:24 PM EDT Hospital Encounter [facility] [address] [place] [address] Margoth Pan CNP [address] [place] [address] Social History Tobacco Use Types Packs/Day Years [...] 08/31/2024 9:49 AM Jovanny Spaulding RN * [place] Suicide Severity Rating Scale (Screener/Recent Self-Report) Question [...] change. Severe medial tibiofemoral compartment narrowing and bfviciqe-oy-bvpuav lateral tibiofemoral compartment narrowing. Mild patellofemoral compartment narrowing with lateral patellar subluxation. Bulky tricompartmental osteophytes. Chondrocalcinosis. Pkxof-li-lnkoslqn effusion. 1.8 cm dystrophic calcification along the posterior knee soft tissues, chronic in appearance. Procedure Note Shy Nuno MD - 01/25/2023 XR KNEE 4 OR MORE VIEWS (LEFT) COMPARISON: KNEE, BILATERAL FINDINGS: Left Knee: Cortical step-off along the proximal fibula. Minimal lateralsubluxation of the tibia in relation to the femur in the setting ofdegenerative change. Severe medial tibiofemoral compartment narrowing xgzbepgcmvh-zi-jlstuf lateral tibiofemoral compartment narrowing. Mildpatellofemoral compartment narrowing with lateral patellar subluxation.Bulky tricompartmental osteophytes. Chondrocalcinosis. Ccgvu-gd-kcinwapvglujbnpy. 1.8 cm dystrophic calcification along the posterior knee softtissues, chronic in appearance. IMPRESSION: 1. Cortical step-off along the proximal fibula, likely representing aminimally impacted proximal fibular fracture. Correlation with pointtenderness. 2. 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 3. Chondrocalcinosis. Margoth Pan PHYSICAL PLANT MANAGER IMG XR LOWER EXTREMITY Roz l Result documented in this encounter Visit Diagnoses Not on filedocumented in this encounter Additional Health Concerns Infection Onset Date Last Indicated Resolved Time CDiff-Risk 09/04/2024 09/04/2024 09/05/2024 2:50 PM EDT documented as of this encounter Care Teams Assistant Drafter Relationship Specialty Start Date End Date Marily Lock MD [address] [place] [phone] [email or web address] PCP - General Family Medicine 12/21/19 02/04/23 documented as of this encounter Additional Source Comments The information contained in this document represents components of the legal health record. It is not the complete legal health record.[facility]
--- OUTSIDE RECORDS SUMMARY | 2025-07-22 17:22 | XMS_ITS | Encounter Summary ---
Author Organization [facility] Address [address] [place] [address] [place] [address] Phone Care Team Providers Care Communication Coordinator Name Role Phone Marily Lock MD Primary Care Prov ider Chhaya Sosa NP Primary Care Provider [phone] Encounter Details Date Type Department Care Team (Late st Contact Info) Description 04/26/2020 Procedure Pass [facility] Endoscopy Admitting Dept Virtual Department 30 [place] [address] Social History Tobacco Use Types Packs/Day Years [...] documented as of this encounter Care Teams Communication Coordinator Relationship Specialty Start Date End Date Marily Lock MD [address] [place] [address] [email or web address] PCP - General Family Medicine 12/21/19 02/04/23 Chhaya Sosa NP [address] [place] [address] [email or web address] PCP - General Nurse Practitioner 02/05/23 documented as of this encounter Additional Source Comments The information contained in this document represents components of the legal health record. It is not the complete legal health record.[facility]
--- OUTSIDE RECORDS SUMMARY | 2025-07-22 17:22 | XMS_ITS | Encounter Summary ---
Author Organization [facility] Address [address] [facility] [address] [place] [address] Phone Care Team Providers Care Settlement Technician Name Role Phone Marily Lcok MD Primary Care Prov ider Chhaya Sosa NP Primary Care Provider [phone] Encounter Details Date Type Department Care Team (Late st Contact Info) Description 12/01/2020 Ancillary Orders [facility] Orthopedics & Sports Medicine [address] [place] [address] [phone] Lauren Lowe PA-C [address] [place] [address] Orthopedics & Sports Medicine, [facility]. [place], [place] [phone] [email or web address] Social History Tobacco Use Types Packs/Day Years [...] documented as of this encounter Care Teams Settlement Technician Relationship Specialty Start Date End Date Marily Lock MD [address] [place] [address] [email or web address] PCP - General Family Medicine 12/21/19 02/04/23 Chhaya Sosa NP [address] [place] [address] [email or web address] PCP - General Nurse Practitioner 02/05/23 documented as of this encounter Additional Source Comments The information contained in this document represents components of the legal health record. It is not the complete legal health record.[facility]
--- OUTSIDE RECORDS SUMMARY | 2025-07-22 17:22 | XMS_ITS | Encounter Summary ---
Author Organization [facility] Address [address] [place] [address] [place] [address] Phone Care Team Providers Care Environmental Health And Safety Leader Name Role Phone Marily Lock MD Primary Care Prov ider Chhaya Sosa NP Primary Care Provider [phone] Encounter Details Date Type Department Care Team (Late st Contact Info) Description 04/25/2020 Procedure Pass [facility] Endoscopy Admitting Dept Virtual Department 30 [place] [address] Social History Tobacco Use Types Packs/Day Years [...] documented as of this encounter Care Teams Environmental Health And Safety Leader Relationship Specialty Start Date End Date Marily Lock MD [address] [place] [address] [email or web address] PCP - General Family Medicine 12/21/19 02/04/23 Chhaya Sosa NP [address] [place] [address] [email or web address] PCP - General Nurse Practitioner 02/05/23 documented as of this encounter Additional Source Comments The information contained in this document represents components of the legal health record. It is not the complete legal health record.[facility]
--- OUTSIDE RECORDS SUMMARY | 2025-07-22 17:22 | XMS_ITS | Encounter Summary ---
Author Organization [facility] Address [address] [facility] [address] [place] [address] Phone Care Team Providers Care Economic Geographer Name Role Phone Marily Lock MD Primary Care Prov ider Chhaya Sosa NP Primary Care Provider [phone] Encounter Details Date Type Department Care Team (Late st Contact Info) Description 12/01/2020 Ancillary Orders [address] [phone] Lauren Lowe PA-C [address] [place] [address] Orthopedics & Sports Medicine, [facility]. [place], [place] [phone] [email or web address] Right wrist pain Social History Tobacco Use [...] note for this date of service. Lauren Lowe PA-C IMG XR UPPER EXTREMI TY Final Result documented in this encounter Visit Diagnoses Diagnosis Right wrist pain Pain in joint, forearm Right wrist pain Pain in joint, forearm documented in this encounter Additional Health Concerns Infection Onset Date Last Indicated Resolved Time CDiff-Risk 09/04/2024 09/04/2024 09/05/2024 2:50 PM EDT documented as of this encounter Care Teams Economic Geographer Relationship Specialty Start Date End Date Marily Lock MD [address] [place] [address] PCP - General Family Medicine 12/21/19 02/04/23 Chhaya Sosa NP [address] [place] [address] PCP - General Nurse Practitioner 02/05/23 documented as of this encounter Additional Source Comments The information contained in this document represents components of the legal health record. It is not the complete legal health record.[facility]
--- OUTSIDE RECORDS SUMMARY | 2025-07-22 17:22 | XMS_ITS | Encounter Summary ---
Author Organization [facility] Address [address] [facility] [address] [place] [address] Phone Care Team Providers Care Cost Specialist Name Role Phone Chhaya Sosa NP Primary Care Provider [phone] Encounter Details Date Type Department Care Team (Latest Contact Info) Description 10/15/2024 Ancillary Orders [facility] Orthopedics & Sports Medicine [address] [place] [address] [phone] Mana Flores PA-C [address] [place] [address] Orthopedics & Sports Medicine, [facility]. [place], [place] [phone] [email or web address] Fracture, hip (Primary Dx) Social History [...] encounter note for this date of service. Mana Flores PA-C IMG XR PELVIS Final Re sult documented in this encounter Visit Diagnoses Diagnosis Fracture, hip Closed fracture of unspecified part of neck of femur Fracture, hip- Primary Closed fracture of unspecified part of neck of femur documented in this encounter Care Teams Cost Specialist Relationship Specialty Start Date End Date Chhaya Sosa NP [address] [place] [address] [email or web address] PCP - General Nurse Practitioner 02/05/23 documented as of this encounter Additional Source Comments The information contained in this document represents components of the legal health record. It is not the complete legal health record.[facility]
--- OUTSIDE RECORDS SUMMARY | 2025-07-22 17:22 | XMS_ITS | Clinical Summary ---
Author Organization [facility] Address [address] [address] Phone Care Team Providers Care Woods Manager Name Role Phone Chhaya Sosa NP Primary Care Provider [phone] Allergies No known active allergies Medications sertraline [...] PCP [place] [facility] Hip fracture 07/14/2024 Assessment & Plan (09/04/2024 [...] (07/16/2024 10:24 AM EDT): Continue diltiazem. Called [facility]. Pt is prescribed irbesrtan/HCTZ 150/12.5, last picked [...] Td,Tdap Booster 03/10/2025 03/10/2015 MAMMOGRAM 05/21/2025 05/21/2023, 0807/2019, 05/27/2017, Additional history exists INFLUENZA VACCINE (#1) 2025 , 08/13/2022, 08/13/2022, Additional history exists COVID-19 VACCINE (2024- season) 2025 02/25/2021, 02/02/2021 CREATININE LEVEL 09/05/2025 [...] this topic Medical Devices Implanted Type Area Industrial Safety Engineer Device Identifier Shelf Expiration Date Model / Serial / Lot 12mm/130 Deg Ti Michael Tfna 235mm/Left Implanted:Qty: 1 on 07/15/2024 by Dheeraj Corley MD at [facility] Nail Left: Femur [employer] 10/10/2033 04.037.245 S / / [id number] Screw Bone 10.0o152vo Fenestrated Aqanife Tfn Advanced - [id number] Implanted:Qty: 1 on 07/15/2024 by Dheeraj Corley MD at [facility] Left: Femur J [employer] 04/10/2034 04.038.205 S / / [id number] Screw Bone 5x38mm Xl25 Locking Medullary Nail Compatible - [id number] Implanted:Qty: 1 on 07/15/2024 by Dheeraj Corley MD at [facility] Left: Femur [employer] 01/08/2034 04.045.038 S / / [id number] Nail Bone 23g820zx 125deg Ti Cannulated Tfn Advanced Right - [id number] Implanted:Qty: 1 on 09/02/2024 by Dheeraj Corley MD at [facility] Right: Leg J [employer] 06/10/2033 04.037.132 S / / [id number] Bone Screw 95mm Fenestrated Aqanife Tfn Advanced - [id number] Implanted:Qty: 1 on 09/02/2024 by Dheeraj Corley MD at [facility] Right: Leg JNJ [employer] 04/10/2034 04.038.195 S / / [id number] Screw Bone 5x48mm Locking Xl25 Recess Medullary Nail Compatible - [id number] Implanted:Qty: 1 on 09/02/2024 by Dheeraj Corley MD at [facility] Right: Leg [employer]PU[employer] 12/11/2032 04.045.048 S / / [id number] Screw Bone 5x50mm Xl25 Locking Im Nail Compatible - [id number] Implanted:Qty: 1 on 09/02/2024 by Dheeraj Corley MD at [facility] Right: Leg [employer]PU[employer] 06/10/2033 04.045.050 / / [id number] Procedures Procedure Name Priority Date/Time Associated Diagnosis [...] EDT) SODIUM 139 133 - 146 mmol/L [facility] CHLORIDE 100 96 - 108 mmol/L [facility] POTASSIUM 3.7 3.3 - 5.1 mmol/L [facility] CO2 34 21 - 35 mmol/L [facility] BUN 22(H) 6 - 19 mg/dL [facility] CREATININE 0.60 0.5 - 1.5 mg/dL [facility] GLUCOSE 97 70 - 99 mg/dL [facility] CALCIUM 10.4(H) 8.4 - 10.3 mg/dL [facility] EGFR 95 >59 mL/min/1.7 3m2 [facility] Comment:Estimated glomerular filtration rate calculated using the CKD-EPI refit equation. ANION GAP 9(L) 10 - 20 mmol/L [facility] Blood 09/05/2024 8:15 AM EDT 09/05/2024 8:21 AM EDT Nina Montes DO LAB BLOOD ORDERABLES Final Result [facility] [address] [place] [address] * BI MAMMOGRAM DIAGNOSTIC WITH TOMOSYNTHESIS WITH [...] There are scattered fibroglandular densities. Chhaya Sosa YAMILETH IMG MG EXAMS Final Result * ENDOSCOPY, COLON (04/26/2020 12:35 PM EDT) Narrative Transcriptions Nash Small MD - 04/26/2020 12:35 PM EDT Patient Name: Anabela Gillette Attending MD:: NASH SMALL MD Procedure Date: 04/26/2020 12:35 PM Date of : 1950 Age: 69 Admit Type: Outpatient Gender: Female Room: [place] [address] Referring MD: Marily Guevara MD Exam Type: [...] monitored continuously. The Olympus adult variable colonoscope [id number] #7was introduced through the anus and advanced [...] 12:35 PM Procedure Code(s): --- Professional --- 06132, Colonoscopy, flexible; with removal of tumor(s), polyp(s), or other lesion(s) by snare technique --- Technical --- 59482, Colonoscopy, flexible; with removal of tumor(s), polyp(s), or other lesion(s) by snare technique CPT copyright 2018 [employer]. All rights reserved. The codes documented in this report are preliminary and upon scale attendant reviewmay be revised to meet current compliance requirements. Procedure Date: 04/26/2020 12:35:59 PM [address] [place] [address] Marily Guevara MD GI PROCEDURE ORDER ANDREW Final Result * Outside LDL (05/22/2011) LDL - External 114 50 - 250 mg/ml Historical Provider LAB BLOOD ORDERABLES Roz l Result from Last 3 Months or Most Recently Relevant to Health Maintenance Insurance MEDICARE PART A & [place] [address] [place] [id number] [facility] A & [facility] [address] [place] [address] MEDICARE PART A & B Member Subscriber Plan / Payer ( fective 2003-Present) Name:Anabela Gillette Member ID:[id number] Relation to Subscriber:Self Name:Anabela Gillette Subscriber ID:[id number] Payer ID:[id number] Group ID:Not on file Type:Medicare Address: [employer] [address] [place] PART A & B [facility] [place] B HEALTH MEDICARE PART A & B [facility] Advance Directives For more information, please contact: [phone] (9AM - 5PM [facility], Saturday-Saturday) Documents on File Type Date Recorded Patient Grinder Set Up Operator Centerless Expl anation Healthcare Proxy 01/26/2023 signed 01/26 * Full Code (Latest Code Status on File) Date Activated Date Inactivated Comments 08/31/2024 5:20 PM Question Answer Comments Code Status Confirmed With: Patient * Full Code Date Activated Date Inactivated Comments 07/14/2024 1:48 PM 08/31/2024 5:20 PM Question Answer Comments Code Status Confirmed With: Patient Code Status Communicated To: Inpatient Attending Healthcare Agents on File Name Relationship Healthcare Agent [facility] Communication Jocelin Castellon Daughter .Primary Health Care Agent (Proxy form on file) Care Teams Woods Manager Relationship Specialty Start Date End Date Chhaya Sosa NP [address] [place] [address] [email or web address] PCP - General Nurse Practitioner 02/05/23 Additional Source Comments The information contained in this document represents components of the legal health record. It is not the complete legal health record.[facility]
--- OUTSIDE RECORDS SUMMARY | 2025-07-22 17:22 | XMS_ITS | Encounter Summary ---
Author Organization [facility] Address [address] [facility] [address] [place] [address] Phone Care Team Providers Care Fuel Handler Name Role Phone Chhaya Sosa NP Primary Care Provider Encounter Details Date Type Department Care Team (Late st Contact Info) Description 09/02/2024 Procedure Pass [place] Admitting Dept - Virtual Department [address] [place] [address] Social History Tobacco Use Types Packs/Day Years [...] documented as of this encounter Care Teams Fuel Handler Relationship Specialty Start Date End Date Chhaya Sosa NP [address] [place] [address] [email or web address] PCP - General Nurse Practitioner 02/05/23 documented as of this encounter Additional Source Comments The information contained in this document represents components of the legal health record. It is not the complete legal health record.[facility]
--- OUTSIDE RECORDS SUMMARY | 2025-07-22 17:22 | XMS_ITS | Encounter Summary ---
Author Organization [facility] Address [address] [facility] [address] [place] [address] Phone Care Team Providers Care Tool Hardener Name Role Phone Chhaya Sosa NP Primary Care Provider [phone] Encounter Details Date Type Department Care Team (Late st Contact Info) Description 03/15/2023 Procedure Pass [facility], [address] [address] Social History Tobacco Use Types Packs/Day Years [...] documented as of this encounter Care Teams Tool Hardener Relationship Specialty Start Date End Date Chhaya Sosa NP [address] [place] [address] [email or web address] PCP - General Nurse Practitioner 02/05/23 documented as of this encounter Additional Source Comments The information contained in this document represents components of the legal health record. It is not the complete legal health record.[facility]
--- OUTSIDE RECORDS SUMMARY | 2025-07-22 17:22 | XMS_ITS | Encounter Summary ---
Author Organization [facility] Address [address] [facility] [address] [place] [address] Phone Care Team Providers Care Ticket Chopper Assembler Name Role Phone Chhaya Sosa NP Primary Care Provider [phone] Encounter Details Date Type Department Care Team (Late st Contact Info) Description 03/15/2023 Procedure Pass [facility], [address] [address] Social History Tobacco Use Types Packs/Day Years [...] documented as of this encounter Care Teams Ticket Chopper Assembler Relationship Specialty Start Date End Date Chhaya Sosa NP [address] [place] [address] [email or web address] PCP - General Nurse Practitioner 02/05/23 documented as of this encounter Additional Source Comments The information contained in this document represents components of the legal health record. It is not the complete legal health record.[facility]
--- OUTSIDE RECORDS SUMMARY | 2025-07-22 17:22 | XMS_ITS | Encounter Summary ---
Author Organization [facility] Address [address] [facility] [address] [place] [address] Phone Care Team Providers Care Helicopter Pilot Instructor Name Role Phone Chhaya Sosa NP Primary Care Provider [phone] Encounter Details Date Type Department Care Team (Late st Contact Info) Description 08/10/2024 Procedure Pass [facility] Endoscopy Admitting Dept Virtual Department 30 [place] [address] Social History Tobacco Use Types Packs/Day Years [...] documented as of this encounter Care Teams Helicopter Pilot Instructor Relationship Specialty Start Date End Date Chhaya Sosa NP [address] [place] [address] [email or web address] PCP - General Nurse Practitioner 02/05/23 documented as of this encounter Additional Source Comments The information contained in this document represents components of the legal health record. It is not the complete legal health record.[facility]
--- OUTSIDE RECORDS SUMMARY | 2025-07-22 17:23 | XMS_ITS | Encounter Summary ---
Author Organization [facility] Address [address] [facility] [address] [place] [address] Phone Care Team Providers Care Newspaper Delivery Driver Name Role Phone Chhaya Sosa NP Primary Care Provider [phone] Encounter Details Date Type Department Care Team (Late st Contact Info) Description 05/18/2024 Procedure Pass [facility] Endoscopy Admitting Dept Virtual Department 30 [place] [address] Social History Tobacco Use Types Packs/Day Years [...] documented as of this encounter Care Teams Newspaper Delivery Driver Relationship Specialty Start Date End Date Chhaya Sosa NP [address] [place] [address] [email or web address] PCP - General Nurse Practitioner 02/05/23 documented as of this encounter Additional Source Comments The information contained in this document represents components of the legal health record. It is not the complete legal health record.[facility]
--- OUTSIDE RECORDS SUMMARY | 2025-07-22 17:23 | XMS_ITS | Encounter Summary ---
Author Organization [facility] Address [address] [facility] [address] [place] [address] Phone Care Team Providers Care Orthodontist Small Business Owner Name Role Phone Chhaya Sosa NP Primary Care Provider [phone] Encounter Details Date Type Department Care Team (Late st Contact Info) Description 07/15/2024 Procedure Pass [place] Admitting Dept - Virtual Department [address] [place] [address] Social History Tobacco Use Types Packs/Day Years [...] documented as of this encounter Care Teams Orthodontist Small Business Owner Relationship Specialty Start Date End Date Chhaya Sosa NP [address] [place] [address] [email or web address] PCP - General Nurse Practitioner 02/05/23 documented as of this encounter Additional Source Comments The information contained in this document represents components of the legal health record. It is not the complete legal health record.[facility]
--- OUTSIDE RECORDS SUMMARY | 2025-07-22 17:23 | XMS_ITS | Encounter Summary ---
Author Organization [facility] Address [address] [place] [address] Phone Care Team Providers Care Penetration Tester Name Role Phone Chhaya Sosa NP Primary Care Provider [phone] Reason for Referral * Physical Therapy (Routine) - Closed Specialty Diagnoses / Procedures Referred By Antelmo lopez Referred To Contact Physical Therapy Diagnoses Encounter for rehabilitation Chhaya Sosa NP [address] [place] [address] Phone: tel: fax: mailto:[email or web address] [address] [place] [address] Phone: tel: Referral ID Status Reason Start Date Expiration Date Visits Re quested Visits Authorized [id number] Closed 04/23/2024 04/23/2025 1 1 Encounter Details Date Type Department Care Team (Late st Contact Info) Description 04/23/2024 Transcribe Orders [facility] Rehabilitation Services [address] [place] [address] Chhaya Sosa NP [address] [place] [address] [email or web address] Encounter for rehabilitation (Primary Dx) Social History [...] Diagnoses Orde r Schedule Ambulatory referral to [facility] Physical Therapy Outpatient Referral Routine Encounter for rehabilitation Ordered: 04/23/2024 documented as of this encounter Visit Diagnoses Diagnosis Encounter for rehabilitation- Primary documented in this encounter Additional Health Concerns Infection Onset Date Last Indicated Resolved Time CDiff-Risk 09/04/2024 09/04/2024 09/05/2024 2:50 PM EDT documented as of this encounter Care Teams Penetration Tester Relationship Specialty Start Date End Date Chhaya Sosa NP [address] [place] [address] [email or web address] PCP - General Nurse Practitioner 02/05/23 documented as of this encounter Additional Source Comments The information contained in this document represents components of the legal health record. It is not the complete legal health record.[facility]
--- NOTE | 2025-07-26 14:25 | HO.ANESPROP2 ---
HPI - Anesthesia Eval Consult details Narrative: 74 yr old female for colonoscopy PMFSH Active Problems Active Problems: All Active Problems (Updated 06/08/25 @ 15:24 by Maura Cordero CNP) Weight loss (Acute) Mild acid reflux (Acute) Loose stools (Acute) Abdominal pain (Acute) Colon cancer screening (Acute) Past Medical History Medical History (Updated 08/03/25 @ 08:50 by Alice Gasca, [place]) COPD (chronic obstructive pulmonary disease) [place] (hard of hearing) HTN (hypertension) Weight loss Mild acid reflux Loose stools Abdominal pain Colon cancer screening Family History Family History Mother Colon cancer Diabetes Heart disease Crohn disease Maternal Grandfather Heart disease Sister Crohn disease Surgical History Surgical History (Updated 08/03/25 @ 08:50 by Alice Gasca, PAYTON) Hx of cholecystectomy Hx of colonoscopy Social History Social History Household Members: Family Patient Tobacco Use Status: Former Tobacco user Meds Allergies Allergy/AdvReac Type Severity Reaction Status Date / Time No Known Allergies Allergy Verified 06/08/25 13:20 Home Medications ?Medication ?Instructions ?Recorded ?Confirmed ?Last Taken ?Type atorvastatin 20 mg tablet 20 mg PO DAILY 06/08/25 Unknown History diltiazem HCl 300 mg 300 mg PO DAILY 06/08/25 Unknown History tablet,extended release 24 hr famotidine 20 mg tablet 20 mg PO BID 06/08/25 Unknown History ipratropium 0.5 mg-albuterol 3 mg ml inhalation 06/08/25 Unknown History (2.5 mg base)/3 mL nebulization soln losartan 100 1 tab PO DAILY 06/08/25 Unknown History mg-hydrochlorothiazide 25 mg tablet potassium chloride 10 mEq 10 meq PO DAILY 06/08/25 Unknown History tablet,extended release sennosides 8.6 mg tablet (senna) 8.6 mg PO BEDTIME 06/08/25 Unknown History sertraline 100 mg tablet 100 mg PO DAILY 06/08/25 Unknown History
[2025-08-03 09:11] VITALS: BMI 34.8
[2025-08-03 09:18] VITALS: BP 138/82; PULSE 78; RESP 16; TEMP 36.5; O2SAT 96
[2025-08-03] MEDS: Lactated Ringers 1,000 ML 100 ML IVCONT (09:20)
--- NOTE | 2025-08-03 09:24 | MHC.SHP ---
Pre-Procedural Eval Section A - 24 Hr Update-Section A only Date of Service: 08/03/25 Section B - Complete if H&P > 30 days Chief Complaint: Polyp of colon Relevant Family History (Specify if Yes): No Relevant Social History: Tobacco Use Present Medications: see Short Stay Collaborative assessment Medical History: Significant History (Weight loss Mild acid reflux Loose stools Abdominal pain Colon cancer screening) History of Previous Operations: Relevant previous surgery/procedure and date(s) ( Hx of colonoscopy) Allergies: Allergies Allergy/AdvReac Type Severity Reaction Status Date / Time No Known Allergies Allergy Verified 06/08/25 13:20 Review of Systems Sugical H&P ROS: Negative: Constitution, Cardiovascular, Respiratory, Neurological, Psychiatric, Hem-Onc, Allergic/Immunologic, Gastrointestinal, Genitourinary, Musculoskeletal, Integumentary, Endocrine and Eyes/Ears/Nose/Throat Exam Surgical H&P Exam: Normal: HEENT, Normal: Heart, Normal: Lungs, Normal: Extremities, Normal: Abdomen, Normal: Skin and Normal: Neurological Plan Diagnosis/Plan: Unchanged I have reviewed the history and physical and performed a pertinent physical examination on my patient. No changes have occurred unless specified. Time Spent With Patient Time: Total time managing care of this patient today ____ minutes.
--- NOTE | 2025-08-03 10:32 | P.OPN-COLO_ITS ---
Colonoscopy Operative Note Operative Note Date of Service: 08/03/25 Narrative: Operative Information Procedure Description: Colonoscopy Indication: screening Anesthesia: MAC COLONOSCOPY Instrument: Olympus variable stiffness pediatric scope 190L Colonoscopy Monitoring: Vital signs and clinical assessment, continuous EKG monitoring, Pulse oximetry, Carbon Dioxide monitoring and blood pressure monitoring were done throughout the procedure. Colon withdrawal time was 22 minutes. Procedure: The patient was placed in the left lateral decubitis position and pre-procedure medications were administered. After a digital rectal examination of the ano-rectum, the video colonoscope was inserted into the rectum and advanced through the colon to the cecum/TI. The colonoscope was slowly withdrawn in a retrograde panoramic fashion and the colon mucosa was carefully examined including a retroflexed view of the rectum. Findings and interventions are described below. Procedure Difficulty: moderate, used colowrap Findings: Terminal Ileum-normal Cecum:normal right sided retroflexion- few medium sized lipomas noted. Ascending Colon: few lipomas and diverticula noted Transverse Colon - x 1 sessile polyp 5-6 mm removed with cold forceps, x 1 sessile polyp 7-8 mm removed with cold snare Descending Colon: x1 sessile polyps 5-7 mm removed with cold forceps Sigmoid Colon: severe diverticulosis, x2 sessile polyps 5-7 mm removed with cold forceps, x 1 sessile polyp 8-9 mm lifted with eleview and removed with cold snare Rectum: Retroflexion with small internal hemorrhoids seen, grade I Anorectum - normal Intervention: cold forceps, cold snare, cold snare with eleview and EMR Colon preparation: [place] Bowel Preparation Scale Right colon; 2 Transverse colon: 2 Left colon; 1-2 (0 = Unprepared colon segment with mucosa not seen due to solid stool that kaitlyn ot be cleared. 1 = Portion of mucosa of the colon segment seen, but other areas of the colon segment not well seen due to staining, residual stool and/or opaque liquid. 2 = Minor amount of residual staining, small fragments of stool and/or opaque liquid, but mucosa of colon segment seen well. 3 = Entire mucosa of colon segment seen well with no residual staining, small fragments of stool or opaque liquid) Impression and Post Procedure Diagnosis: diverticulosis colon polyps x 6 internal hemorrhoids Plan: High fiber diet leaflet Avoid straining at stool, epsom salts and sitz bath, anusol supps or cream Repeat Colonoscopy in 1 year due to fair prep on the left and polyp burden or earlier if clinically indicated Above findings were reviewed with the patient and relevant handouts were provided if indicated.
[2025-08-03 10:39] VITALS: BP 143/87; PULSE 74; RESP 16; TEMP 36.2; O2SAT 95
[2025-08-03 10:54] VITALS: BP 145/97; PULSE 72; RESP 16; O2SAT 98
[2025-08-03 11:09] VITALS: BP 161/93; PULSE 79; RESP 16; TEMP 36.8; O2SAT 100
[2025-08-03 11:25] VITALS: PULSE 80; RESP 16; O2SAT 99
[2025-08-03 11:40] VITALS: RESP 16
== END 2025-08-03 12:04 | disposition home or self-care (01) ==
PROVIDERS: PCP Physician Assistant Medical; Visit Provider Internal Medicine Gastroenterology
PROC: 0DJD8ZZ Inspection of Lower Intestinal Tract, Via Natural or Artificial Opening Endoscopic (ICD-10-PCS; CPT 45378; principal; 2025-08-03 11:00)
DX: Z12.11 Encounter for screening for malignant neoplasm of colon (principal); Z80.0 Family history of malignant neoplasm of digestive organs; D12.4 Benign neoplasm of descending colon; D12.5 Benign neoplasm of sigmoid colon; K63.5 Polyp of colon; D17.5 Benign lipomatous neoplasm of intra-abdominal organs; K57.30 Diverticulosis of large intestine without perforation or abscess without bleeding; K64.0 First degree hemorrhoids; R15.9 Full incontinence of feces; R19.7 Diarrhea, unspecified; R10.9 Unspecified abdominal pain; Z83.79 Family history of other diseases of the digestive system; K21.9 Gastro-esophageal reflux disease without esophagitis; R13.10 Dysphagia, unspecified; I10 Essential (primary) hypertension; E78.5 Hyperlipidemia, unspecified; J44.9 Chronic obstructive pulmonary disease, unspecified; E66.01 Morbid (severe) obesity due to excess calories; Z68.33 Body mass index [BMI] 33.0-33.9, adult; R63.4 Abnormal weight loss; H91.90 Unspecified hearing loss, unspecified ear; Z79.899 Other long term (current) drug therapy; Z66 Do not resuscitate; Z87.891 Personal history of nicotine dependence; Z90.49 Acquired absence of other specified parts of digestive tract
CPT/HCPCS: 45385; 45380; 45381; 88305; J2371; J2704

== ENCOUNTER → 2025-08-03 08:13 | Outpatient (BNV) | payer MEDICARE, MEDICAID, SELFPAY | PROVIDERS: PCP Physician Assistant Medical; Visit Provider Internal Medicine Gastroenterology | DX: Z12.11 Encounter for screening for malignant neoplasm of colon (principal); D12.3 Benign neoplasm of transverse colon; D12.5 Benign neoplasm of sigmoid colon; D12.4 Benign neoplasm of descending colon; K57.90 Diverticulosis of intestine, part unspecified, without perforation or abscess without bleeding; K64.0 First degree hemorrhoids | CPT/HCPCS: 45381; 45385 ==

== ENCOUNTER 2025-08-09 06:34 | Outpatient (REF) | payer MEDICARE, MEDICAID, SELFPAY ==
--- OUTSIDE RECORDS SUMMARY | 2020-11-15 18:21 | XMS_ITS | Encounter Summary ---
Author Organization [facility] Address [address] [place] [address] Phone Care Team Providers Care Fruit Culler Name Role Phone Marily Lock MD Primary Care Prov ider Encounter Details Date Type Department Care Team (Late st Contact Info) Description 11/15/2020 5:21 PM EST Hospital Encounter [facility] [address] [place] [address] Margoth Pan CNP [address] [place] [address] Social History Tobacco Use Types Packs/Day Years [...] 9:49 AM EDT Jovanny Lazaro RN * [place] Suicide Severity Rating Scale (Screener/Recent Self-Report) Question [...] can be considered. us Margoth Zach Viviane QUALITY ASSURANCE SUPERVISOR IMG XR CHEST Final Resul t documented in this encounter Visit Diagnoses Not on filedocumented in this encounter Additional Health Concerns Infection Onset Date Last Indicated Resolved Time CDiff-Risk 09/04/2024 09/04/2024 09/05/2024 2:50 PM EDT documented as of this encounter Care Teams Fruit Culler Relationship Specialty Start Date End Date Marily Lock MD [address] [place] [phone] [email or web address] PCP - General Family Medicine 12/21/19 02/04/23 documented as of this encounter Additional Source Comments The information contained in this document represents components of the legal health record. It is not the complete legal health record.[facility]
--- OUTSIDE RECORDS SUMMARY | 2020-11-15 18:21 | XMS_ITS | Encounter Summary ---
Author Organization [facility] Address [address] [place] [address] Phone Care Team Providers Care Business Planning Manager Name Role Phone Marily Lock MD Primary Care Prov ider Encounter Details Date Type Department Care Team (Late st Contact Info) Description 11/15/2020 5:21 PM EST Hospital Encounter [facility] [address] [place] [address] Margoth Pan CNP [address] [place] [address] [email or web address] Social History Tobacco Use Types Packs/Day Years [...] 9:49 AM EDT Jovanny Lazaro RN * [place] Suicide Severity Rating Scale (Screener/Recent Self-Report) Question [...] distal radial metaphysis. us Margoth Zach Viviane GLUE WHEEL OPERATOR IMG XR UPPER EXTREMITY Roz l Result documented in this encounter Visit Diagnoses Not on filedocumented in this encounter Additional Health Concerns Infection Onset Date Last Indicated Resolved Time CDiff-Risk 09/04/2024 09/04/2024 09/05/2024 2:50 PM EDT documented as of this encounter Care Teams Business Planning Manager Relationship Specialty Start Date End Date Marily Lock MD [address] [place] [phone] [email or web address] PCP - General Family Medicine 12/21/19 02/04/23 documented as of this encounter Additional Source Comments The information contained in this document represents components of the legal health record. It is not the complete legal health record.[facility]
--- OUTSIDE RECORDS SUMMARY | 2023-01-25 16:24 | XMS_ITS | Encounter Summary ---
Author Organization [facility] Address [address] [place] [phone] Phone Care Team Providers Care Drop Hammer Setter Up Name Role Phone Marily Lock MD Primary Care Prov ider Encounter Details Date Type Department Care Team (Late st Contact Info) Description 01/25/2023 4:24 PM EDT Hospital Encounter [facility] [address] [place] [phone] Margoth Pan CNP [address] [place] [address] Social History Tobacco Use Types Packs/Day Years [...] 08/31/2024 9:49 AM Jovanny Spaulding RN * [place] Suicide Severity Rating Scale (Screener/Recent Self-Report) Question [...] change. Severe medial tibiofemoral compartment narrowing and butdchhp-mu-vthfgt lateral tibiofemoral compartment narrowing. Mild patellofemoral compartment narrowing with lateral patellar subluxation. Bulky tricompartmental osteophytes. Chondrocalcinosis. Hmuap-ir-llehjwwp effusion. 1.8 cm dystrophic calcification along the posterior knee soft tissues, chronic in appearance. Procedure Note Shy Nuno MD - 01/25/2023 XR KNEE 4 OR MORE VIEWS (LEFT) COMPARISON: KNEE, BILATERAL FINDINGS: Left Knee: Cortical step-off along the proximal fibula. Minimal lateralsubluxation of the tibia in relation to the femur in the setting ofdegenerative change. Severe medial tibiofemoral compartment narrowing gzhbwcbbkas-yj-trcqrp lateral tibiofemoral compartment narrowing. Mildpatellofemoral compartment narrowing with lateral patellar subluxation.Bulky tricompartmental osteophytes. Chondrocalcinosis. Lkdsl-ev-pxrluupdvrylfglf. 1.8 cm dystrophic calcification along the posterior knee softtissues, chronic in appearance. IMPRESSION: 1. Cortical step-off along the proximal fibula, likely representing aminimally impacted proximal fibular fracture. Correlation with pointtenderness. 2. 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 3. Chondrocalcinosis. Margoth Pan ENROLLMENT CONSULTANT IMG XR LOWER EXTREMITY Roz l Result documented in this encounter Visit Diagnoses Not on filedocumented in this encounter Additional Health Concerns Infection Onset Date Last Indicated Resolved Time CDiff-Risk 09/04/2024 09/04/2024 09/05/2024 2:50 PM EDT documented as of this encounter Care Teams Drop Hammer Setter Up Relationship Specialty Start Date End Date Marily Lock MD [address] [place] [phone] [email or web address] PCP - General Family Medicine 12/21/19 02/04/23 documented as of this encounter Additional Source Comments The information contained in this document represents components of the legal health record. It is not the complete legal health record.[facility]
[2025-08-09 06:11] LABS: MANUAL DIFF FLAG NO
--- OUTSIDE RECORDS SUMMARY | 2025-08-09 06:42 | XMS_ITS | Encounter Summary ---
Author Organization [facility] Address [address] [facility] [address] [place] [address] Phone Care Team Providers Care Rubber Tester Name Role Phone Chhaya Sosa NP Primary Care Provider [phone] Encounter Details Date Type Department Care Team (Late st Contact Info) Description 03/15/2023 Procedure Pass [facility], [address] [address] Social History Tobacco Use Types Packs/Day Years [...] documented as of this encounter Care Teams Rubber Tester Relationship Specialty Start Date End Date Chhaya Sosa NP [address] [place] [address] [email or web address] PCP - General Nurse Practitioner 02/05/23 documented as of this encounter Additional Source Comments The information contained in this document represents components of the legal health record. It is not the complete legal health record.[facility]
--- OUTSIDE RECORDS SUMMARY | 2025-08-09 06:42 | XMS_ITS | Encounter Summary ---
Author Organization [facility] Address [address] [facility] [address] [place] [address] Phone Care Team Providers Care Optical Lathe Operator Name Role Phone Chhaya Sosa NP Primary Care Provider Encounter Details Date Type Department Care Team (Late st Contact Info) Description 03/15/2023 Procedure Pass [facility], [address] [address] Social History Tobacco Use Types Packs/Day Years [...] documented as of this encounter Care Teams Optical Lathe Operator Relationship Specialty Start Date End Date Chhaya Sosa NP [address] [place] [address] [email or web address] PCP - General Nurse Practitioner 02/05/23 documented as of this encounter Additional Source Comments The information contained in this document represents components of the legal health record. It is not the complete legal health record.[facility]
--- OUTSIDE RECORDS SUMMARY | 2025-08-09 06:43 | XMS_ITS | Encounter Summary ---
Author Organization [facility] Address [address] [place] [address] [place] [address] Phone Care Team Providers Care Tire Building Supervisor Name Role Phone Marily Lock MD Primary Care Prov ider Chhaya Sosa NP Primary Care Provider [phone] Encounter Details Date Type Department Care Team (Late st Contact Info) Description 04/25/2020 Procedure Pass [facility] Endoscopy Admitting Dept Virtual Department [address] [place] [address] Social History Tobacco Use Types Packs/Day Years [...] documented as of this encounter Care Teams Tire Building Supervisor Relationship Specialty Start Date End Date Marily Lock MD [address] [place] [phone] [email or web address] PCP - General Family Medicine 12/21/19 02/04/23 Chhaya Sosa NP [address] [place] [address] [email or web address] PCP - General Nurse Practitioner 02/05/23 documented as of this encounter Additional Source Comments The information contained in this document represents components of the legal health record. It is not the complete legal health record.[facility]
--- OUTSIDE RECORDS SUMMARY | 2025-08-09 06:43 | XMS_ITS | Data Portability ---
Author Organization [facility], Main Office Address [address] [facility], [facility] [address] [place] [address] Care Team Providers Care [employer] Sequestration [employer] Engineer Name Role Phone NIKITA LIN Primary Care Provide r СВЕТЛАНА ROBERSON 2ND FLOOR OTHER Assessment Encounter Date Assessment Date Assessment LastModified by Organization Details LastModified Time 11/09/2024 11/09/2024 Labs 09/14: Mg448-E 4.6-Bun 16- cr 0.7-wbc 7.1-hgb 9.4-hct 28.7-plt 222 Labs 09/28: Na 144- K 3.0-Bun 12- Cr 0.6-wbc 9.6-hgb 10.40 hct 31.0-plt 198 Labs 10/05:Na 141- K 3.7-Bun 13- Cr 0.6-wbc 5.5-hgb 10.7-hct 32.2-plt 163 Labs 10/13: Na 141-K 3.8-Bun 14-Cr 0.6-wbc 8.2-hgb 11.8-tyw34-kn t 188-calcium 12.7 Labs 10/19: Na 141- [...] Address Organization Details Recorded Time Pulmonary emphysema 31476621 Active [address], [address], [place], [address], [facility] 3 10:46:22 Osteoarth ritis 437900636 Active [address], [address], [place], [address], [facility] 3 10:46:28 Asthma 597238910 Active [address], [address], [place], [address], [facility] 3 10:46:32 Cyst of breast 665877535 Completed 202209/07/2024 KIMBERLYN MERCEDES [address] [place] [address], [address], [place], [address], [facility] 4 20:44:27 Chronic obstructi ve pulmonary disease 18264263 Active [address], [address], [place], [address], [facility] 3 10:46:48 Obesity 561927085 Completed 202209/07/2024 KIMBERLYN MERCEDES [address] [place] [address], [facility] [address], [place], [address], [facility] 4 20:44:27 Depressiv e disorder 62485630 Active [address], [address], [place], [address], [facility] 3 10:47:08 Hyperlipi demia 86462724 Active [address], [address], [place], [address], [facility] 3 10:47:16 Polyp of colon 49187829 Completed 202209/07/2024 KIMBERLYN MERCEDES [address] , [address], [place], [address], [facility] 4 20:44:27 History of deep vein thrombosi s 947396151 Active 2022 [address]NA [address], [address], [place], [address], [email or web address] 3 10:47:37 Essential hypertens ion 96962205 Active 2022 VANGIE LOR[address]ZANA [address], [place], [address], [facility] 3 10:51:08 Closed fracture of left patella 163713915574 73419 Completed 202209/07/2024 KIMBERLYN MERCEDES [address] [facility], [address], [place], [address], [facility] 4 20:44:27 Gastroeso phageal reflux disease without esophagit is 374824905 Active [address] [place] [address], [address], [place], [address], [facility] 3 10:57:14 Fall Active 2022 VANGIE LORENZANA [address] [place] [address], [address], [place], [address], [facility] 3 11:02:17 Fracture of proximal end of femur 475689793 Completed 202309/07/2024 KIMBERLYN MERCEDES [address] [facility], [address], [place], [address], [facility] 4 10:10:21 Tobacco user 262244812 Active 2023 VANGIE LORENZANA [address] [place] [address], [address], [place], [address], [facility] 4 15:12:34 [facility] emia 48381030 Completed 202309/07/2024 KIMBERLYN MERCEDES [address] [facility], [address], [place], [address], [facility] 4 20:44:27 History of thrombocy topenia 764385209484 08 Completed 202309/07/2024 KIMBERLYN MERCEDES [address] [facility], [address], [place], [address], [facility] 4 20:48:33 Constipat ion 35539258 Active 2023 Holly Robles MD [address] [facility], [address], [place], [address], [facility] 4 21:45:11 Fracture of proximal end of femur 633814703 Active 2023 KIMBERLYN MERCEDES [address] [facility], [address], [place], [address], [facility] 4 10:10:21 Problem Notes None recorded. Procedures Surgical History Date Name Laterality Status Provider Name and Address Organization Details Recorded Time ligation of fallopian tube completed [address], [address], [place], [address], [facility] 01/28/2023 10:47:49 cholecystectomy completed [address], [facility] [address], [place], [address], [facility] 01/28/2023 10:47:57 Imaging Results None recorded. Procedure [...] Updated DateTime 5 172.72 cm 34 kg/m2 814112. 61 g 78 /min 18 /min 97.9 [degF] 95 % 95 % 142/78 mm[Hg] LILIA AVINA CNP [address] [facility], [address], [place], [address], [facility] 5 10:43:49 Date Recorded Body height Body temperature Respiratory rate Heart rate Oxygen saturation Oxygen saturation in Arterial blood by Pulse oximetry Systolic And Diastolic Provider Name and Address Organization Details Last Updated DateTime 5 172.72 cm 97.9 [degF] 18 /min 75 /min 96 % 96 % 120/67 mm[Hg] KIMBERLYN MERCEDES [address] [facility], [address], [place], [address], [facility] 5 18:30:55 Date Recorded Body height Body temperature Respiratory rate Heart rate Oxygen saturation Oxygen saturation in Arterial blood by Pulse oximetry Systolic And Diastolic Provider Name and Address Organization Details Last Updated DateTime 4 172.72 cm 98 [degF] 18 /min 71 /min 96 % 96 % 122/72 mm[Hg] KIMBERLYN MERCEDES [address] [facility], [address], [place], [address], [facility] 5 10:39:20 Social History Question Answer Notes LastModified by Organization Details LastModified Time Tobacco Smoking Status Former Smoker every day, 1 ppd VANGIE LORENZANA [address] [facility], [facility] [address], [place], [address], [facility] 01/28/2023 10:48:58 Do You Have An Advance Directive? Yes Information not available 07/20/2024 What Is Your Code Status? Full Code Information not available 01/28/2023 Where Do You Live? Apartment 1st Floor, Accessible. Information not available 07/20/2024 Legal Guardian? No Informati on not available 01/28/2023 Do You Have A Medical Power Of Health Workers? Yes Information not available 07/20/2024 What Was [...] (COVID-19) vaccine, UNSPECIFIED 1 completed Minnie Schwab [facility] 01/28/2023 16:51:35 SARS-COV-2 (COVID-19) vaccine, UNSPECIFIED 1 completed Minnie Schwab [facility] 01/28/2023 16:51:48 Tdap 5 completed Minnie Schwab [facility] 01/28/2023 16:52:09 influenza, unspecified formulation 1 ankit Schwab [facility] 01/28/2023 16:52:33 pneumococcal conjugate PCV 7 6 ankit Schwab [facility] 01/28/2023 16:53:01 pneumococcal polysaccharide PPV23 2 completed Minnie Schwab [facility] 01/28/2023 16:53:16 zoster recombinant 9 completed Minnie Schwab [facility] 01/28/2023 16:53:33 zoster live 2 completed Minnie Schwab [facility] 01/28/2023 16:53:50 Influenza, adjuvanted, quadrivalent, PF 2 completed Mily Almonte [facility] 12/11/2023 11:33:48 Influenza, adjuvanted, quadrivalent, PF 3 completed Milynilda Garcíain [facility] 01/09/2024 11:17:44 Past Encounters Encounter ID Performer Location Encounter Start Date Encounter Closed Date Diagnosis/Indication Diagnosis SNOMED-CT Code Diagnosis ICD10 Code Diagnosis IMO Codes Diagnosis Note [id number] VANGIE Gonzalez at [facility] on [address] [place] [address] 01/28/2023 10:42:58 01/30/2023 14:52:45 Closed fracture of left patella 8493419578 9260465 S82.002D see HPI, s/p fallKnee immobilize r while OOBWBAT, PT/OT eval and treatmonit or pain control Hyperlipidemia 66898989 E78.5 lipitor 20 mg dailymonit or lipids outpt with PCP Essential hypertension 04295310 I10 cardizem 120 mg dailybenic ar 40-25 dailymonit or bps 136/78 today Gastroesop hageal reflux disease without esophagitis 977613119 K21.9 pepcid 20 mg BIDmonitor for reflux Chronic ob structive pulmonary disease 45125775 J44.9 combivent QIDmonitor resp statusenco urage smoking cessation Pulmonary emphysema 8743 3001 J43.9 see aboveencou rage cessation Depressive disorder 5461 1307 F32.A zoloft 100 mg dailymonit or mood, consult [facility] if needed Fall R29.6 fell after getting OOBminimiz e fall riskPT/OT eval and treat [id number] MD Carlos Byrd at [facility] on [address] [place] [address] 01/29/2023 13:50:17 01/31/2023 09:49:56 Fracture of fibula 38580404 S82.402D follow ortho recs; working w pt/ot;has knee immobilize r per ortho;cons ider aspirin anticoagul ation if patient is immobilize d; Essential hypertension 03794501 I10 asymptomat ic; hemodynami alysia stable; good rate; clear lungs; good sats; follow; History of deep vein thrombosis 266658355 Z86.718 noted;afte r knee surgery 2000;she seems to be adequately mobilized at this pointconsi amelia aspirin; Asthma 590642025 J45.90 9 asymptomat ic; on combivent; Hypercholesterolemia 136 50428 E78.00 on statin; Depressive disorder 9115 9987 F32.A well compensate d; on sertraline Medication monitoring 39 1346482 Z51.81 [facility] / Olmesartan -Hydrochlo rothiazide 40/25 mg/d; cardizem CD 120 mg/d;pulm / combivent; endo / lipitor 20 mg/d;heme /gi / pepcid;gu /neuro / sertraline 100 mg/d; [id number] VANGIE LORENZANA [facility] at [facility] on [address] [place] [phone] 02/04/2023 09:11:52 02/06/2023 09:35:44 Closed fracture of left patella 8787696889 8381306 S82.002D see HPI, s/p fallKnee immobilize r while OOBWBAT, PT/OT to continue outpt with [facility] Hyperlipidemia 00124035 E78.5 lipitor 20 mg dailymonit or lipids outpt with PCP Essential hypertension 38103564 I10 cardizem 120 mg dailybenic ar 40-25 dailystabl e Gastroesop hageal reflux disease without esophagitis 407869936 K21.9 pepcid 20 mg BID Chronic ob structive pulmonary disease 71156202 J44.9 combivent QIDencoura ge smoking cessation Pulmonary emphysema 8743 3001 J43.9 see aboveencou rage cessation Depressive disorder 5011 6747 F32.A zoloft 100 mg daily Fall 6138420 R29.6 minimize fall risk at homeremove scatter risk [id number] VANGIE LORD GAMAL ANGEL [address] [place] [address] 07/18/2024 09:09:20 07/21/2024 09:00:14 Hyperlipidemia 93031460 E78.5 lipitor 20 mg dailymonit or lipids outpt with PCP Essential hypertension 61692356 I10 cardizem 300 mg dailyavali de dailymonit or bps 136/78 today Gastroesop hageal reflux disease without esophagitis 467034133 K21.9 pepcid 20 mg BIDmonitor for reflux Chronic ob structive pulmonary disease 56943107 J44.9 combivent QID prnmonitor resp statusenco urage smoking cessation Pulmonary emphysema 8743 3001 J43.9 see aboveencou rage cessation Depressive disorder 3548 9007 F32.A zoloft 100 mg dailyvitam in d3 dailymonit or mood, consult [facility] if needed Fall R29.6 see HPIminimiz e fall riskPT/OT eval and treat Tobacco user 993356835 Z 72.0 hx of heavy tobacco use and recently stopped secondary to stay at short-term rehab. She has not requested any nicotine replacemen t therapy while here but that can be offered if need be. Hypercalcemia 61983577 E 83.52 elevated serum calcium levels dating back to spring 2022.Mildl y elevated inpatient and do not appear to be causing her any symptomsHe r PTH was elevated suggesting primary hyperparat hyroidism. Patient should see endocrinol og through [facility] after discharge from [facility] facility.d tr aware to work on this Fracture o f proximal end of femur 889535513 S72.001A s/p pinningWBA T, PT/OT eval and treatmonit or pain controloxy codone 5 mg q 4 hours prnapap 650 mg q 6 hours prnlovenox 40 mg sq x 30 days [id number] MD GAMAL Mac [address] [place] [address] 07/20/2024 19:49:57 07/27/2024 09:02:40 Fracture of proximal end of femur 798524824 S72.021D Recovering as expected.C ontinue oxycodone 5 mg q 4 hrs prn and APAP 650 mg q 6 hrs prnContinu e lovenox 40 mg sq x 30 days for DVT prophylaxi s.Needs PT/OT for strengthen ing, balance, gait training, safety and function.C ontinue fall precaution s.Monitor for safety.F/U with ortho on 07/30 as planned. Essential hypertension 43392167 I10 In good control on diltiazem 300 mg qd and irbesartan /HCTZ 150/12.5 mgMonitor BP and labs. Hyperlipidemia 22480788 E78.49 Continue atorvastat in 20 mg qdMonitor labs as outpt. Gastroesop hageal reflux disease without esophagitis 932207036 K21.9 No current sxs.Contin ue famotidine 20 mg BIDMonitor for GI sxs. Chronic ob structive pulmonary disease 02515617 J43.8 No current sxs.Contin ue combivent 1 puff q 4 hrs prnMonitor resp statusCont inue to encourage smoking cessation Depressive disorder 3548 9007 F33.8 Continue sertraline 100 mg qdMood good today.Bridgett tor mood.Consu lt psych prn Fall R29.6 PT/OT as above.Cont inue fall precaution s.Monitor for safety. Tobacco user 614000578 Z 72.0 Continue to encourage ch[facility] cessation. Has not smoked since in hospital/r ehab. Hypercalcemia 41647946 E 83.52 Probable primary hyperparat hyroidism. To f/u with endo outpt.Bridgett tor Ca+ levels. History of thrombocytopenia 5034746398 9108 Z86.2 Dropped post-op inpt, now back to nl.Monitor labs. Constipation 14982454 K5 9.03 Will give MOM tonight and start miralax 17 gms qd.Continu e prn medsMonito r bowel function. [id number] [place] [address] 07/23/2024 11:08:18 07/24/2024 12:29:48 Fracture of proximal end of femur 710904309 S72.001A s/p pinning- site healing wellWBAT, PT/OT eval and treatoxyco done 5 mg q 4 hours prn - still taking frequently apap 650 mg q 6 hours prnlovenox 40 mg sq x 30 days total Fall R29.6 continue PT dailyrepor ts pain with movement but tolerable with oxy Tear of skin 609686897 T 14.8XXD add xeroform to wound bed of skin tear on left arm and cover with foamchange dressing dailyonce healed [place] [id number] VANGIEDIMA ANGEL [address] [place] [address] 07/27/2024 09:01:00 07/29/2024 08:25:43 Fracture of proximal end of femur 599130342 S72.001A s/p pinning- site healing wellWBAT, PT/OT [...] working with physical therapy Tear of skin 885271244 T 14.8XXD add xeroform to wound bed of skin tear on left arm and cover with foamContin ue to change dressing dailyonce healed [place] [id number] KIMBERLY SAPP [address] [place] [address] 07/29/2024 11:12:02 07/30/2024 11:51:48 COVID-19 619608234 U07.1 tested posstable on RA, no ssbaseline cough and wheezing w/ h/o COPDpaxlov id not indicated at this timemainta in precaution sretest per protocolmo nitor VS and resp. status [id number] VANGIEDIMA ANGEL [address] [place] [address] 08/03/2024 09:12:48 08/04/2024 12:59:14 COVID-19 258107260 U07.1 Recoveredm onitor VS and resp. status Fracture o f proximal end of femur 154466478 S72.001A s/p pinning- site healing wellContin ue [...] drainage, color, and odor. Tear of skin 293537566 T 14.8XXD add xeroform to wound bed of skin tear on left arm and cover with foamContin ue to change dressing daily [id number] VANGIE ANGEL [address] [place] [address] 08/06/2024 10:51:39 08/07/2024 13:04:19 COVID-19 582175405 U07.1 Recovered Fracture o f proximal end of femur 993255978 S72.001A s/p pinning- site healing wellContin ue [...] drainage, color, and odor. Tear of skin 534495600 T 14.8XXD healing Fall R29.6 continue PT daily Essential hypertension 08526825 I10 cardizem 300 mg dailyavali de dailymonit or bps Hyperlipidemia 53965611 E78.5 lipitor 20 mg dailymonit or lipids outpt with PCP Gastroesop hageal reflux disease without esophagitis 166505390 K21.9 pepcid 20 mg BIDmonitor for reflux none noted Chronic ob structive pulmonary disease 31599711 J44.9 combivent QID prnmonitor resp statusenco urage smoking cessation Pulmonary emphysema 8743 3001 J43.9 see aboveencou rage cessation Depressive disorder 3701 6867 F32.A zoloft 100 mg dailyvitam in d3 dailymonit or mood, consult [facility] if needed [id number] VANGIE [place] [address] 08/11/2024 09:55:34 08/12/2024 11:44:33 Fracture of proximal end of femur 033581648 S72.001A s/p pinning, site healedorde r placed to remove tata todayConti nue WBAT, PT/OTConti nue oxycodone 5 mg q 4 hours prn- using randomlyCo ntinue apap 650 mg q 6 hours prnlovenox 40 mg sq x 30 days total to end 08/18 Edema of l ower extremity 415963889 R60.0 consider lasix dailyadd cbc bmp bnp tomorrowel evate as ableask dehairing machine tender to weigh nowadd weights MWF [id number] VANGIE [place] [address] 08/12/2024 09:49:29 08/13/2024 15:31:19 Edema of lower extremity 188501897 R60.0 asked for her to be weighed yesterday, nursing note says held, unable to obtain unclear whyBNP in range for patientadd rosa wraps daily, off qhsmonitor Hypercalcemia 25990126 E 83.52 elevated serum calcium levels dating back to spring 2022.Mildl y elevated inpatient and do not appear to be causing her any symptomsHe r PTH was elevated suggesting primary hyperparat hyroidism. Patient should see endocrinol og through [facility] after discharge from [facility] facility.1 1.8 corrected [id number] VANGIE [place] [address] 08/19/2024 10:32:29 08/20/2024 13:56:24 Dizziness 707378437 R42 add cbc and bmp tomorrowen courage PO fluidscons ider IVF if neededmoni tor bps [id number] VANGIE [place] [address] 08/28/2024 09:55:39 08/31/2024 14:13:31 Dizziness 751135499 R42 resolved Edema of l ower extremity 449737398 R60.0 BNP in range for patientace wraps daily, off qhs Hypercalcemia 88580976 E 83.52 elevated serum calcium levels dating back to spring 2022.Mildl y elevated inpatient and do not appear to be causing her any symptomsHe r PTH was elevated suggesting primary hyperparat hyroidism. Patient should see endocrinol lise through [facility] after discharge from [facility] facility.1 1.8 corrected Fracture o f proximal end of femur 867154836 S72.001A s/p pinning, site healedDC oxycodone 5 mg q 4 hours prn-not usingConti nue apap 650 mg q 6 hours prn COVID-19 566602480 U07.1 Recovered Essential hypertension 63429658 I10 cardizem 300 mg dailyavali de daily Hyperlipidemia 06741222 E78.5 lipitor 20 mg dailymonit or lipids outpt with PCP Gastroesop hageal reflux disease without esophagitis 445622466 K21.9 pepcid 20 mg BID Chronic ob structive pulmonary disease 40099298 J44.9 combivent QID prnencoura ge smoking cessation Pulmonary emphysema 8743 3001 J43.9 see aboveencou rage cessation Depressive disorder 6021 5278 F32.A zoloft 100 mg dailyvitam in d3 daily [id number] [facility]N [facility]ES [facility] [address] [place] [address] 09/07/2024 07:41:45 09/08/2024 13:21:36 Closed fracture of hip 080217203 S72.001A s/p ORIFcontin ue lovenox 40 mg daily/dvt ppx for until 10/06conti nue tylenol and oxycodone prnPT/OT eval and TXfollow up with ortho in 2 weeksStapl es covered with dressing intact - not removed Essential hypertension 85790112 I10 meds held in acute care due to soft BPparamete rs to hold for SBP < 120continu e cardizem 300 mg Depressive disorder 9316 7857 F32.A Zoloft 100 mg daily Hypercalcemia 61137648 E 83.52 elevated serum calcium levels dating back to spring 2022.Mildl y elevated inpatient and do not appear to be causing her any symptomsHe r PTH was elevated suggesting primary hyperparat hyroidism. Patient should see endocrinol lise through [facility] after discharge from [facility] facility.1 1.8 corrected Anemia fol lowing acute postoperative blood loss 0553319657 8818653 D62 surgery relatedhgb fell from 11.1 to 8.7did not require transfusio nmonitor hgb Hyperlipidemia 45755656 E78.5 lipitor 20 mg dailymonit or lipids outpt with PCP Gastroesop hageal reflux disease without esophagitis 610164635 K21.9 pepcid 20 mg BID Chronic ob structive pulmonary disease 89441901 J44.9 combivent QID prnencoura ge smoking cessation Asthma 921611925 J45.90 9 asymptomat ic; on combivent; History of deep vein thrombosis 818773552 Z86.718 after knee surgery 2000prior to fall not on anticoag due to active mobilityno w on lovenoxcon vice president 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 adding asa when lovenox is d/c Fall R29.6 PT/OTmaint ain safety Osteoarthritis 045461940 M19.90 continue tylenol prn [id number] Timur Beebe MD [address] [address] 09/08/2024 13:34:28 09/09/2024 12:17:01 Closed fracture of hip 573583541 S72.001A see HPIright hip fx s/p ORIFfollow ortho recs and update with concernsmo nitor for pain controlPT OT eval and treatloven ox for EVT prophylaxi s Essential hypertension 87040737 I10 cardizem 300 mg qdmonitor bp and need to titrate Depressive disorder 3548 9007 F33.8 zoloft 100 mg qdcontinue dmonitor mood Anemia fol lowing acute postoperative blood loss 5321429623 0618745 D62 no transfusio n in hospitalre peat cbc orderediro n studies prn Hyperlipidemia 66725901 E78.2 lipitor 20 mg qdcontinue d Gastroesop hageal reflux disease without esophagitis 983659721 K21.9 famotidine 20 mg bidmonitor for sx relief Chronic ob structive pulmonary disease 71267766 J41.1 continue out patient medication smonitor albuterol utilizatio nencourage 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 Fall R29.6 PT OT eval and treatmonit or fall risk and need for increased support in community Osteoarthritis 676167416 M15.0 controlled with prn tylenoladd ed to PMH Hypokalemia 20602045 E87 .6 now on KCl 40 meqs qdrepeat bmpmonitor lytes [id number] KIMBERLYN MERCEDES [address] [address] 09/17/2024 09:31:46 09/21/2024 12:45:13 Closed fracture of hip 427809243 S72.001A s/p ORIFcontin ue PT/OTconti nue lovenox 40 mg daily/dvt ppx for until 10/06conti nue tylenol and oxycodone prnfollow up with ortho in 2 weeks 09/21/24 aples covered with dressing intact - not removed Essential hypertension 81189119 I10 BP stablecont inue cardizem 300 mg Depressive disorder 3548 9007 F32.A Zoloft 100 mg dailymood is good Hyperlipidemia 89301036 E78.5 lipitor 20 mg dailymonit or lipids outpt with PCP Gastroesop hageal reflux disease without esophagitis 800018972 K21.9 pepcid 20 mg BID Chronic ob structive pulmonary disease 97569905 J44.9 NO Increase WOBcombive nt QID prnencoura ge smoking cessation Fall R29.6 PT/OTmaint ain safety Fracture o f proximal end of femur 680760866 S72.001A s/p left proximal femur IM nail fixation 4cont inue PT/OT [id number] KIMBERLYN MERCEDES [address] [address] 09/21/2024 08:39:37 09/22/2024 11:47:04 Closed fracture of hip 974486971 S72.001A s/p ORIFcontin ue PT/OTconti nue lovenox 40 mg daily/dvt ppx for until 10/06conti nue tylenol and oxycodone prnfollow up with ortho in 2 weeks 09/21/24 aples covered with dressing intact - not removed Essential hypertension 75334044 I10 BP stablecont inue cardizem 300 mg Chronic ob structive pulmonary disease 76282759 J44.9 NO Increase WOBcombive nt QID prnencoura ge smoking cessation [id number] KIMBERLYN MERCEDES [address] [address] 10/01/2024 09:07:27 10/02/2024 10:23:31 Closed fracture of hip 439982936 S72.001A s/p ORIFcontin ue PT/OTconti nue lovenox 40 mg daily/dvt ppx for until 10/06conti nue tylenol and oxycodone prnfollow up with ortho in 2 weeks 09/21/24St aples covered with dressing intact - not removed Essential hypertension 97536311 I10 BP stablecont inue cardizem 300 mg Chronic ob structive pulmonary disease 40555855 J44.9 NO Increase WOBcombive nt QID prnencoura ge smoking cessation Acute hypokalemia 707164 03 E87.6 3.0not on diuretics , steroidsst art kcl 10 meq and recheck on 10/04 [id number] KIMBERLYN MERCEDES [address] [address] 10/05/2024 11:16:11 10/06/2024 11:11:03 Closed fracture of hip 394820566 S72.001A s/p ORIFcontin ue PT/OTconti nue lovenox 40 mg daily/dvt ppx for until 10/06conti nue tylenol and oxycodone prnfollow up with ortho in 2 weeks 09/21/24in cision healed Essential hypertension 19149744 I10 BP stablecont inue cardizem 300 mg Chronic ob structive pulmonary disease 32375372 J44.9 NO Increase WOBcombive nt QID prnencoura ge smoking cessation Acute hypokalemia 846568 03 E87.6 repleted po with kcl 10 meq improvemen t now noted 3.7? is decrease possible related to recent abx use she was on ciprofloxa jaden for UTIwill monitor K Pain of ri ght knee region 3843477435 74933 M25.561 reports pain started after hip repairdesc ribed as cramping, pain with dorsiflexi onshe is concerned for ? blood clotthere is no swelling or point tenderness will ord ultrasound will order tramadol 50 mg Q6 prn until pending results. [id number] KIMBERLYN MERCEDES [facility] [address] [place] [address] 10/12/2024 12:11:08 10/15/2024 11:19:28 Closed fracture of hip 910615876 S72.001A s/p ORIFcontin ue PT/OTconti nue lovenox 40 mg daily/dvt ppx for until 10/06conti nue tylenol and oxycodone prnfollow up with ortho in 2 weeks 09/21/24in cision healed Essential hypertension 74322408 I10 BP stablecont inue cardizem 300 mg Chronic ob structive pulmonary disease 37254448 J44.9 NO Increase WOBcombive nt QID prnencoura ge smoking cessation Pain of ri ght knee region 3379128420 86540 M25.561 see hpiimaging negative for DVTreports pain started after hip repairdesc ribed as cramping, pain with dorsiflexi onshe is concerned for ? blood clotthere is no swelling or point tenderness Hypercalcemia 22396299 E 83.52 today 12.7elevat ed serum calcium levels dating back to spring 2022.Mildl y elevated inpatient and do not appear to be causing her any symptomsHe r PTH was elevated suggesting primary hyperparat hyroidism. refer to endocrinol lise through [facility] after [facility] facilitydi scussed with nursing to hold calcium and vit D for now [id number] KIMBERLYN MERCEDES СВЕТЛАНА DA [address] [place] [address] [place] [address] 10/15/2024 08:36:48 10/16/2024 12:00:47 Closed fracture of hip 036251426 S72.001A s/p ORIFcontin ue PT/OTconti nue lovenox 40 mg daily/dvt ppx for until 10/06conti nue tylenol and oxycodone prnincisio n healed Essential hypertension 49326501 I10 BP stablecont inue cardizem 300 mg Chronic ob structive pulmonary disease 72078787 J44.9 NO Increase WOBcombive nt QID prnencoura ge smoking cessation Pain of ri ght knee region 6438210806 59875 M25.561 see hpiimaging negative for DVTreports pain started after hip repairdesc ribed as cramping, pain with dorsiflexi onshe is concerned for ? blood clotthere is no swelling or point tenderness Hypercalcemia 44451724 E 83.52 123: 12.7elevat ed serum calcium levels dating back to spring 2022.Mildl y elevated do not appear to be causing her any symptomsHe r PTH was elevated suggesting primary hyperparat hyroidism. refer to endocrinol [facility] through [facility] after discharge from [facility] facilitydi scussed with nursing to hold calcium and vit D for nowmonitor for associated sx [id number] KIMBERLYN MERCEDES [address] [place] [address] 10/19/2024 10:14:51 10/20/2024 14:17:10 Closed fracture of hip 800528981 S72.001A s/p ORIFcontin ue PT/OTconti nue tylenol and oxycodone prnincisio n healed Essential hypertension 23852317 I10 BP stablecont inue cardizem 300 mg Chronic ob structive pulmonary disease 76887383 J44.9 NO Increase WOBcombive nt QID prnencoura ge smoking cessation Pain of ri ght knee region 7369586643 52937 M25.561 see hpiimaging negative for DVTreports pain started after hip repairdesc ribed as cramping, pain with dorsiflexi onshe is concerned for ? blood clotthere is no swelling or point tenderness Hypercalcemia 94301373 E 83.52 ejegqht54 9: 11.6elevat ed serum calcium levels dating back to spring 2022.Mildl y elevated do not appear to be causing her any symptomsHe r PTH was elevated suggesting primary hyperparat hyroidism. refer to endocrinol ogy through [facility] after discharge from [facility] facilitydi scussed with nursing to hold calcium and vit D for nowmonitor for associated sx Hypokalemia 13896313 E87 .6 see HPI/suspec t medication inducedK+ 3.2replace now with 20 meq for 1 dosewill add daily kcl 10 meq and continue to monitor. [id number] KIMBERLYN MERCEDES [facility] [address] [place] [address] [place] [address] 10/22/2024 08:21:15 10/23/2024 13:25:04 Closed fracture of hip 552112143 S72.001A s/p ORIFcontin ue PT/OT- progressin g slowlycont inue tylenol and oxycodone prnincisio n healed Essential hypertension 83302478 I10 BP stablecont inue cardizem 300 mg Chronic ob structive pulmonary disease 24770125 J44.9 NO Increase WOBcombive nt QID prnencoura ge smoking cessation Pain of ri ght knee region 1544815349 70919 M25.561 imaging negative for DVTthere is no swelling or point tenderness will schedule apap 975 mg TID, pain seems to be interferin g with therapy endurance. discussed with patient and nursing. Hypercalcemia 08100235 E 83.52 uxnpemh30/ 9: 11.6elevat ed serum calcium levels dating back to spring 2022.Mildl y elevated do not appear to be causing her any symptomsHe r PTH was elevated suggesting primary hyperparat hyroidism. refer to endocrinol ogprakash through [facility] after discharge from [facility] facilitydi scussed with nursing to hold calcium and vit D for nowmonitor for associated sx Hypokalemia 70280019 E87 .6 see HPI/suspec t medication inducedK+ 3.2replace now with 20 meq for 1 dosewill add daily kcl 10 meq and continue to monitor. [id number] KIMBERLYN MERCEDES [facility] [address] [place] [address] [place] [address] 10/26/2024 10:36:56 10/27/2024 12:05:26 Closed fracture of hip 762624904 S72.001A s/p ORIFcontin ue PT/OT- progressin g slowlycont inue tylenol and oxycodone prnincisio n healed Chronic ob structive pulmonary disease 18577485 J44.9 NO Increase WOBcombive nt QID prnencoura ge smoking cessation Pain of ri ght knee region 9571141536 31349 M25.561 imaging negative for DVTthere is no swelling or point tenderness continue apap 975 mg TID Hypokalemia 41810041 E87 .6 see HPI/suspec t medication inducedK+ 3.8continu e kcl 10 meq daily.[facility] tor labs [id number] KIMBERLYN MERCEDES [address] [address] 11/02/2024 10:15:17 11/03/2024 09:53:07 Closed fracture of hip 883795034 S72.001A s/p ORIFcontin ue PT/OT- progressin g slowlycont inue tylenol and oxycodone prnincisio n healed Chronic ob structive pulmonary disease 92571185 J44.9 NO Increase WOBcombive nt QID prnencoura ge smoking cessation Dysuria 23153451 R30.0 patient room has strong urine odorUA / C&S pendingnur sing reports hygiene issues noted during straight cathincrea sed fluids encouraged . [id number] KIMBERLYN MERCEDES [address] [address] 11/05/2024 13:49:31 11/06/2024 12:22:28 Dysuria 23719085 R30.0 patient room has strong urine odornursin g reports hygiene issues noted during straight cathincrea sed fluids encouraged . Recurrent urinary tract infection 379066770 N39.0 see hpiC&S results shows sensitivit y to ceftriaxon ewill stop macrobid and start on ceftriaxon e 1 g qd for 3 daysdiscus sed with nursing [id number] KIMBERLYN MERCEDES [address] [address] 11/09/2024 13:20:09 11/18/2024 11:14:37 Recurrent urinary tract infection 131980127 N39.0 abx completedm onitor for reoccurenc ewater/ increased fluids encouraged [id number] KIMBERLYN MERCEDES [address] [address] 12/10/2024 15:22:50 12/14/2024 16:02:52 Left sided abdominal pain 513642690 R10.9 patient states that she has had this pain in the past and it has been intermitte nt and ongoing, she does not recall if she has seen GIdiscusse d with patient and nursingche ck labs cbc, CMP,straig ht cath for UA with c/sxray KUBconside r referral to GI if labs are non specific Dizziness 935808114 R42 BP 160's (could be related to pain)start meclizine 12.5 mg q 8 prnmonitor for resolution [id number] Timur Beebe MD [address] [address] 01/10/2025 12:58:13 01/11/2025 15:58:22 Fall R29.6 therapy followingm onitor fall risk and need for increased support in community vs need to stay LTC Essential hypertension 54692647 I10 cardizem 300 mg qdmonitor bp and need to titrate Gastroesop hageal reflux disease without esophagitis 775891315 K21.9 famotidine 20 mg bidmonitor for sx relief Asthenia 17120982 R53.1 continues to require assist with ADLsworkin g with therapypat ient goal is still home [id number] LILIA AVINA CNP [address] [address] 03/10/2025 10:41:17 03/12/2025 14:08:03 Asthenia 27079036 R53.1 continues to require assist with ADLsworkin g with therapyPT and OT, PRN.patien t goal is still home Fall R29.6 no new falls reportedth erapy followingm onitor fall risk and need for increased support in community vs need to stay LTC Essential hypertension 81160390 I10 BP stablecont inuecardiz em 300 mg qdmonitor bp and need to titrate Gastroesop hageal reflux disease without esophagitis 127476022 K21.9 stablefamo tidine 20 mg bidmonitor for sx relief [id number] KIMBERLYN MERCEDES [address] [address] 05/19/2025 05:49:03 05/21/2025 13:03:50 Asthenia 93943789 R53.1 continues to require assist with ADLsworkin g with therapyPT and OT, PRN. Fall R29.6 no new falls reportedth erapy followingm onitor fall risk and need for increased support in community vs need to stay LTC Essential hypertension 72340065 I10 BP stablecont inuecardiz em 300 mg qdmonitor bp and need to titrate Gastroesop hageal reflux disease without esophagitis 402242197 K21.9 stablefamo tidine 20 mg bidmonitor for sx relief Asthma 270992547 J45.90 9 asymptomat ic; on combivent; Chronic ob structive pulmonary disease 54155047 J44.9 NO Increase WOBcombive nt QID prnstable [...] Porras Member ID Guarantor Name 05/19/2025 2 MED[place]: [facility] Anabela Juarezhop [id number] [facility] 05/19/2025 1 MEDICARE B-NM: [employer] [facility] [id number] [facility] Notes Date Note Type Note [...] sx at this time. KIMBERLYN MERCEDES [address] [facility], [address], [place], [address], [facility] 11/18/2024 10:47:49 12/10/2024 text/html ROS as [...] no tenderness or distention. KIMBERLYN MERCEDES [address] [facility], [address], [place], [address], [employer] [facility] 12/10/2024 18:43:42 01/10/2025 text/html ROS as [...] home with services Timur Beebe MD [address] [facility], [address], [place], [address], [employer] [facility] 01/10/2025 13:02:00 03/10/2025 text/html ROS as noted in the HPI Patient is a 74 yo female now LT resident seen for routine rounding visit. Patient [...] 55, high risk. LILIA AVINA CNP [address] [facility], [address], [place], [address], [facility] 03/10/2025 10:52:49 05/19/2025 text/html ROS as noted in the HPI 74 yo female now LTC resident seen for routine rounding visit. Patient was initially admit from hospital presenting after mechanical fall with right hip pain. Imaging positive for fracture, eval by ortho and underwent ORIF. Medically she has been stable, there has been no acute concerns. KIMBRELYN MERCEDES [address] [facility], [address], [place], [address], [place] [facility] [email or web address] [facility] 05/20/2025 18:46:38 OBGyn Episode No OBEpisode recorded.
--- OUTSIDE RECORDS SUMMARY | 2025-08-09 06:43 | XMS_ITS | Encounter Summary ---
Author Organization [facility] Address [address] [place] [address] [place] [address] Phone Care Team Providers Care Inventory Technician Name Role Phone Marily Lock MD Primary Care Prov ider Chhaya Sosa NP Primary Care Provider [phone] Encounter Details Date Type Department Care Team (Late st Contact Info) Description 04/26/2020 Procedure Pass [facility] Endoscopy Admitting Dept Virtual Department [address] [place] [address] Social History Tobacco Use Types Packs/Day Years [...] as of this encounter Care Teams Inventory Technician Relationship Specialty Start Date End Date Marily Lock MD [address] [place] [address] [email or web address] PCP - General Family Medicine 12/21/19 02/04/23 Chhaya Sosa NP [address] [place] [address] [email or web address] PCP - General Nurse Practitioner 02/05/23 documented as of this encounter Additional Source Comments The information contained in this document represents components of the legal health record. It is not the complete legal health record.[facility]
--- OUTSIDE RECORDS SUMMARY | 2025-08-09 06:43 | XMS_ITS | Encounter Summary ---
Author Organization [facility] Address [address] [facility] [address] [place] [address] Phone Care Team Providers Care Autographer Name Role Phone Chhaya Sosa NP Primary Care Provider [phone] Encounter Details Date Type Department Care Team (Late st Contact Info) Description 09/02/2024 Procedure Pass [place] Admitting Dept - Virtual Department [address] [place] [address] Social History Tobacco Use Types Packs/Day Years [...] documented as of this encounter Care Teams Autographer Relationship Specialty Start Date End Date Chhaya Sosa NP [address] [place] [address] [email or web address] PCP - General Nurse Practitioner 02/05/23 documented as of this encounter Additional Source Comments The information contained in this document represents components of the legal health record. It is not the complete legal health record.[facility]
--- OUTSIDE RECORDS SUMMARY | 2025-08-09 06:43 | XMS_ITS | Clinical Summary ---
Author Organization [facility] [address] [facility] Address [address] [place] [address] Phone Care Team Providers Care Compression Molding Machine Operator Name Role Phone Saqib Lock MD Primary Care Provi amelia Medical History Medical History Date Comments Current every day smoker DX:Curr ent every day smoker Essential (primary) hypertension DX:Essential (primary) hypertension COPD (chronic obstructive pu lmonary disease) (CMS/HCC V24, CMS/HCC V28) DX:COPD (chronic o bstructive pulmonary disease) ([facility]) Depression DX:Depression Thyroid disease DX:Thyroid [...] Insurance MEDICAID - [place] MEDICARE Care Teams Compression Molding Machine Operator Relationship Specialty Start Date End Date Saqib Lock MD [address] [place] [address] PCP - General 10/30/22
--- OUTSIDE RECORDS SUMMARY | 2025-08-09 06:43 | XMS_ITS | Encounter Summary ---
Author Organization [facility] Address [address] [facility] [address] [place] [address] Phone Care Team Providers Care Fiberglass Ski Maker Name Role Phone Marily Lock MD Primary Care Prov ider Chhaya Sosa NP Primary Care Provider Encounter Details Date Type Department Care Team (Late st Contact Info) Description 12/01/2020 Ancillary Orders [address] [id number] Lauren Lowe PA-C [address] [place] [address] Orthopedics & Sports Medicine, [facility]. [place], [place] [id number] [email or web address] Right wrist pain Social History Tobacco Use [...] documented as of this encounter Care Teams Fiberglass Ski Maker Relationship Specialty Start Date End Date Marily Lock MD [address] [place] [address] [email or web address] PCP - General Family Medicine 12/21/19 02/04/23 Chhaya Sosa NP [address] [place] [address] [email or web address] PCP - General Nurse Practitioner 02/05/23 documented as of this encounter Additional Source Comments The information contained in this document represents components of the legal health record. It is not the complete legal health record.[facility]
--- OUTSIDE RECORDS SUMMARY | 2025-08-09 06:43 | XMS_ITS | Clinical Summary ---
Author Organization [facility] Address [address] [address] Phone Care Team Providers Care Gluing Machine Feeder Name Role Phone Chhaya Sosa NP Primary Care Provider [phone] Allergies No known active allergies Medications sertraline (ZOLOFT) 100 MG tablet Take 1 tablet by mouth daily. 0 Active atorvastatin (LIPITOR) 20 MG tablet Take 20 mg by mouth daily. 9 Active ipratropium-albut Lloa (COMBIVENT RESPIMAT) 20-100 mcg/actuation Mist Inhale 1 [...] PCP refer to endo at their office, [facility]. Hip fracture 07/14/2024 Assessment & Plan (09/04/2024 [...] (07/16/2024 10:24 AM EDT): Continue diltiazem. Called [facility]. Pt is prescribed irbesrtan/HCTZ 150/12.5, [...] this topic Medical Devices Implanted Type Area Collections Analyst Device Identifier Shelf Expiration Date Model / Serial / Lot 12mm/130 Deg Ti Michael Tfna 235mm/Left Implanted:Qty: 1 on 07/15/2024 by Dheeraj Corley MD at [facility] Nail Left: Femur [employer] 10/10/2033 04.037.245 S / / [id number] Screw Bone 10.3c475ek Fenestrated Aqanife Tfn Advanced - [id number] Implanted:Qty: 1 on 07/15/2024 by Dheeraj Corley MD at [facility] Left: Femur J [employer] 04/10/2034 04.038.205 S / / [id number] Screw Bone 5x38mm Xl25 Locking Medullary Nail Compatible - [id number] Implanted:Qty: 1 on 07/15/2024 by Dheeraj Corley MD at [facility] Left: Femur [employer] 01/08/2034 04.045.038 S / / [id number] Nail Bone 31x921mx 125deg Ti Cannulated Tfn Advanced Right - [id number] Implanted:Qty: 1 on 09/02/2024 by Dheeraj Corley MD at [facility] Right: Leg J [employer] 06/10/2033 04.037.132 S / / [id number] Bone Screw 95mm Fenestrated Aqanife Tfn Advanced - [id number] Implanted:Qty: 1 on 09/02/2024 by Dheeraj Corley MD at [facility] Right: Leg JNJ [employer] 04/10/2034 04.038.195 S / / [id number] Screw Bone 5x48mm Locking Xl25 Recess Medullary Nail Compatible - [id number] Implanted:Qty: 1 on 09/02/2024 by Dheeraj Corley MD at [facility] Right: Leg [employer] 12/11/2032 04.045.048 S / / [id number] Screw Bone 5x50mm Xl25 Locking Im Nail Compatible - [id number] Implanted:Qty: 1 on 09/02/2024 by Dheeraj Corley MD at [facility] Right: Leg [employer] 06/10/2033 04.045.050 / / [id number] Procedures Procedure Name Priority Date/Time Associated Diagnosis [...] EDT) SODIUM 139 133 - 146 mmol/L [facility] CHLORIDE 100 96 - 108 mmol/L [facility] POTASSIUM 3.7 3.3 - 5.1 mmol/L [facility] CO2 34 21 - 35 mmol/L [facility] BUN 22(H) 6 - 19 mg/dL [facility] CREATININE 0.60 0.5 - 1.5 mg/dL [facility] GLUCOSE 97 70 - 99 mg/dL [facility] CALCIUM 10.4(H) 8.4 - 10.3 mg/dL [facility] EGFR 95 >59 mL/min/1.7 3m2 [facility] Comment:Estimated glomerular filtration rate calculated using the CKD-EPI refit equation. ANION GAP 9(L) 10 - 20 mmol/L [facility] Blood 09/05/2024 8:15 AM EDT 09/05/2024 8:21 AM EDT Nina Montes DO LAB BLOOD ORDERABLES Final Result [facility] [address] [place] [address] * BI MAMMOGRAM DIAGNOSTIC WITH TOMOSYNTHESIS WITH [...] 69 Admit Type: Outpatient Gender: Female Room: [place] [address] Referring MD: Marily Guevara MD Exam Type: [...] monitored continuously. The Olympus adult variable colonoscope [id number] #7was introduced through the anus and advanced [...] 12:35 PM Procedure Code(s): --- Professional --- 95520, Colonoscopy, flexible; with removal of tumor(s), polyp(s), or other lesion(s) by snare technique --- Technical --- 44614, Colonoscopy, flexible; with removal of tumor(s), polyp(s), or other lesion(s) by snare technique CPT copyright 2018 [employer]. All rights reserved. The codes documented in this report are preliminary and upon resident athletic trainer reviewmay be revised to meet current compliance requirements. Procedure Date: 04/26/2020 12:35:59 PM [address] [place] [address] Marily Guevara MD GI PROCEDURE ORDER ANDREW Final Result * Outside LDL (05/22/2011) LDL - External 114 50 - 250 mg/ml Historical Provider LAB BLOOD ORDERABLES Roz l Result from Last 3 Months or Most Recently Relevant to Health Maintenance Insurance MEDICARE PART A & [place] [address] [place] [address] MEDICARE PART A & B [facility] [address] [place] [address] MEDICARE PART A & B Member Subscriber Plan / Payer ( fective 2003-Present) Name:Anabela Gillette Member ID:[id number] Relation to Subscriber:Self Name:Anabela Gillette Subscriber ID:[id number] Payer ID:[id number] Group ID:Not on file Type:Medicare Address: [employer] [address] [place] PART A & B [facility] MED[place]ARE PART A & [place] & B HEALTH MEDICARE PART A & B [facility] Advance Directives For more information, please contact: [phone] (9AM - 5PM [facility], Saturday-Saturday) Documents on File Type Date Recorded Patient Director Of Consumer Affairs Expl anation Healthcare Proxy 01/26/2023 signed 01/26 [...] Agents on File Name Relationship Healthcare Agent [facility] Communication Jocelin Castellon Daughter .Primary Health Care Agent (Proxy form on file) Care Teams Gluing Machine Feeder Relationship Specialty Start Date End Date Chhaya Sosa NP [address] [place] [address] [email or web address] PCP - General Nurse Practitioner 02/05/23 Additional Source Comments The information contained in this document represents components of the legal health record. It is not the complete legal health record.[facility]
--- OUTSIDE RECORDS SUMMARY | 2025-08-09 06:43 | XMS_ITS | Encounter Summary ---
Author Organization [facility] Address [address] [facility] [address] [place] [address] Phone Care Team Providers Care Train Control Electronic Technician Name Role Phone Marily Lock MD Primary Care Prov ider Chhaya Sosa NP Primary Care Provider [phone] Encounter Details Date Type Department Care Team (Late st Contact Info) Description 12/01/2020 Ancillary Orders [facility] Orthopedics & Sports Medicine [address] [place] [address] [id number] Lauren Lowe PA-C [address] [place] [address] Orthopedics & Sports Medicine, [facility]. [place], [place] [id number] [email or web address] Social History Tobacco Use Types Packs/Day Years [...] as of this encounter Care Teams Train Control Electronic Technician Relationship Specialty Start Date End Date Marily Lock MD [address] [place] [address] [email or web address] PCP - General Family Medicine 12/21/19 02/04/23 Chhaya Sosa NP [address] [place] [address] [email or web address] PCP - General Nurse Practitioner 02/05/23 documented as of this encounter Additional Source Comments The information contained in this document represents components of the legal health record. It is not the complete legal health record.[facility]
--- OUTSIDE RECORDS SUMMARY | 2025-08-09 06:43 | XMS_ITS | Encounter Summary ---
Author Organization [facility] Address [address] [facility] [address] [place] [address] Phone Care Team Providers Care Debt And Budget Counselor Name Role Phone Chhaya Sosa NP Primary Care Provider [phone] Encounter Details Date Type Department Care Team (Late st Contact Info) Description 08/10/2024 Procedure Pass [facility] Endoscopy Admitting Dept Virtual Department [address] [place] [address] Social History Tobacco Use Types Packs/Day Years [...] documented as of this encounter Care Teams Debt And Budget Counselor Relationship Specialty Start Date End Date Chhaya Sosa NP [address] [place] [address] [email or web address] PCP - General Nurse Practitioner 02/05/23 documented as of this encounter Additional Source Comments The information contained in this document represents components of the legal health record. It is not the complete legal health record.[facility]
--- OUTSIDE RECORDS SUMMARY | 2025-08-09 06:43 | XMS_ITS | Encounter Summary ---
Author Organization [facility] Address [address] [facility] [address] [place] [address] Phone Care Team Providers Care Training Facilitator Name Role Phone Chhaya Sosa NP Primary Care Provider [phone] Encounter Details Date Type Department Care Team (Late st Contact Info) Description 05/18/2024 Procedure Pass [facility] Endoscopy Admitting Dept Virtual Department [address] [place] [address] Social History Tobacco Use Types Packs/Day Years [...] documented as of this encounter Care Teams Training Facilitator Relationship Specialty Start Date End Date Chhaya Sosa NP [address] [place] [address] [email or web address] PCP - General Nurse Practitioner 02/05/23 documented as of this encounter Additional Source Comments The information contained in this document represents components of the legal health record. It is not the complete legal health record.[facility]
--- OUTSIDE RECORDS SUMMARY | 2025-08-09 06:43 | XMS_ITS | Encounter Summary ---
Author Organization [facility] Address [address] [place] [address] Phone Care Team Providers Care Bath Mix Operator Name Role Phone Chhaya Sosa NP Primary Care Provider [phone] Reason for Referral * Physical Therapy (Routine) - Closed Specialty Diagnoses / Procedures Referred By Antelmo lopez Referred To Contact Physical Therapy Diagnoses Encounter for rehabilitation Chhaya Sosa NP [address] [place] [address] Phone: tel: fax: [email or web address] [address] [place] [address] Phone: tel: Referral ID Status Reason Start Date Expiration Date Visits Re quested Visits Authorized [id number] Closed 04/23/2024 04/23/2025 1 1 Encounter Details Date Type Department Care Team (Late st Contact Info) Description 04/23/2024 Transcribe Orders [facility] [address] [place] [address] Chhaya Sosa NP [address] [place] [address] [email or web address] Encounter for rehabilitation (Primary Dx) Social History [...] Diagnoses Orde r Schedule Ambulatory referral to [facility] Physical Therapy Outpatient Referral Routine Encounter for rehabilitation Ordered: 04/23/2024 documented as of this encounter Visit Diagnoses Diagnosis Encounter for rehabilitation- Primary documented in this encounter Additional Health Concerns Infection Onset Date Last Indicated Resolved Time CDiff-Risk 09/04/2024 09/04/2024 09/05/2024 2:50 PM EDT documented as of this encounter Care Teams Bath Mix Operator Relationship Specialty Start Date End Date Chhaya Sosa NP [address] [place] [address] [email or web address] PCP - General Nurse Practitioner 02/05/23 documented as of this encounter Additional Source Comments The information contained in this document represents components of the legal health record. It is not the complete legal health record.[facility]
--- OUTSIDE RECORDS SUMMARY | 2025-08-09 06:43 | XMS_ITS | Encounter Summary ---
Author Organization [facility] Address [address] [facility] [address] [place] [address] Phone Care Team Providers Care Veneer Stock Grader Name Role Phone Chhaya Sosa NP Primary Care Provider [phone] Encounter Details Date Type Department Care Team (Late st Contact Info) Description 07/15/2024 Procedure Pass [place] Admitting Dept - Virtual Department [address] [place] [address] Social History Tobacco Use Types Packs/Day Years [...] documented as of this encounter Care Teams Veneer Stock Grader Relationship Specialty Start Date End Date Chhaya Sosa NP [address] [place] [address] [email or web address] PCP - General Nurse Practitioner 02/05/23 documented as of this encounter Additional Source Comments The information contained in this document represents components of the legal health record. It is not the complete legal health record.[facility]
--- OUTSIDE RECORDS SUMMARY | 2025-08-09 06:43 | XMS_ITS | Encounter Summary ---
Author Organization [facility] Address [address] [facility] [address] [place] [address] Phone Care Team Providers Care Tuckpointer Name Role Phone Chhaya Sosa NP Primary Care Provider [phone] Encounter Details Date Type Department Care Team (Latest Contact Info) Description 10/15/2024 Ancillary Orders [facility] Medicine [address] [place] [address] [id number] Mana Flores PA-C [address] [place] [address] Orthopedics & Sports Medicine, [facility] [place], [place] [id number] [email or web address] Fracture, hip (Primary Dx) Social [...] femur documented in this encounter Care Teams Tuckpointer Relationship Specialty Start Date End Date Chhaya Sosa NP [address] [place] [address] [email or web address] PCP - General Nurse Practitioner 02/05/23 documented as of this encounter Additional Source Comments The information contained in this document represents components of the legal health record. It is not the complete legal health record.[facility]
[2025-08-09 06:58] LABS: Hematocrit 36.0 % (37.0-47.0); Hemoglobin 12.1 g/dl (12.0-16.0); Imm Gran Abs Auto 0.02 X10*3/uL (0.00-0.03); Imm Gran Pct Auto 0.4 % (0.0-0.4); Lymphocytes Absolute Auto 2.1 X10*3/uL (1.2-4.9); Mean Corpuscular HGB Conc 33.6 g/dl (31.0-35.0); Mean Corpuscular Hemoglobin 34.7 pg (27.0-33.0); Mean Corpuscular Volume 103.2 fL (80.0-98.0); NRBC Abs Auto 0.000 X10*3/uL (0.0-0.012); NRBC Pct Auto 0.0 /100WBC (0.0-0.2); Platelet Count 138 X10*3/uL (160-400); Red Blood Count 3.49 X10*6/uL (4.20-5.50); White Blood Count 5.6 X10*3/uL (4.8-10.8)
[2025-08-09 07:14] LABS: Anion Gap 8 (12-20); Blood Urea Nitrogen 14 mg/dL (9-16); Calcium 10.6 mg/dL (8.4-10.2); Carbon Dioxide 29 mmol/L (22-29); Chloride 109 mmol/L (96-108); Estimated Glomerular Filt Rate > 60; Potassium 3.4 mmol/L (3.3-5.1); Sodium 143 mmol/L (135-145)
== END 2025-08-09 06:35 | disposition home or self-care (01) ==
LOC: HO.MMNH3L 06:34
PROVIDERS: Visit Provider Family Medicine
DX: I10 Essential (primary) hypertension (principal); J44.9 Chronic obstructive pulmonary disease, unspecified; E78.5 Hyperlipidemia, unspecified
CPT/HCPCS: 36415; 80048; 85025

== ENCOUNTER 2025-08-16 06:40 | Outpatient (REF) | payer MEDICARE, MEDICAID, SELFPAY ==
--- OUTSIDE RECORDS SUMMARY | 2020-11-15 18:21 | XMS_ITS | Encounter Summary ---
Author Organization [facility] Address [address] [place] [address] Phone Care Team Providers Care Sales Trainer Name Role Phone Marily Lock MD Primary Care Prov ider Encounter Details Date Type Department Care Team (Late st Contact Info) Description 11/15/2020 5:21 PM EST Hospital Encounter [facility] [address] [place] [address] Margoth Pan CNP [address] [place] [phone] [email or web address] Social History Tobacco Use Types Packs/Day Years [...] 9:49 AM EDT Jovanny Lazaro RN * [place] Suicide Severity Rating Scale (Screener/Recent Self-Report) Question Answer Date of Assessment Author 1. Wish to be (Past 1 Month) No 024 9:49 AM Beth Spaulding RN 2. Non-Specific Active Suici angie Thoughts (Past 1 Month) No 08/31/2024 9:49 AM EDT Beth Lazaro RN 6. Suicidal Behavior (Lifetime) No 9:49 AM EDT Beth Lazaor RN documented as of this encounter Plan [...] CT can be considered. us Margoth Zach Viivane ENVIRONMENTAL TECHNICIAN IMG XR CHEST Final Resul t documented in this encounter Visit Diagnoses Not on filedocumented in this encounter Additional Health Concerns Infection Onset Date Last Indicated Resolved Time CDiff-Risk 09/04/2024 09/04/2024 09/05/2024 2:50 PM EDT documented as of this encounter Care Teams Sales Trainer Relationship Specialty Start Date End Date Marily Lock MD [address] [place] [address] [phone] [email or web address] PCP - General Family Medicine 12/21/19 02/04/23 documented as of this encounter Additional Source Comments The information contained in this document represents components of the legal health record. It is not the complete legal health record.[facility]
--- OUTSIDE RECORDS SUMMARY | 2020-11-15 18:21 | XMS_ITS | Encounter Summary ---
Author Organization [facility] Address [address] [place] [address] Phone Care Team Providers Care Print Shop Assistant Name Role Phone Marily Lock MD Primary Care Prov ider Encounter Details Date Type Department Care Team (Late st Contact Info) Description 11/15/2020 5:21 PM EST Hospital Encounter [facility] [address] [place] [address] Margoth Pan CNP [address] [place] [address] Social History Tobacco Use Types Packs/Day Years [...] 9:49 AM EDT Jovanny Lazaro RN * [place] Suicide Severity Rating Scale (Screener/Recent Self-Report) Question [...] distal radial metaphysis. us Margoth Zach Viviane MEDICAL PROFESSIONALS IMG XR UPPER EXTREMITY Roz l Result documented in this encounter Visit Diagnoses Not on filedocumented in this encounter Additional Health Concerns Infection Onset Date Last Indicated Resolved Time CDiff-Risk 09/04/2024 09/04/2024 09/05/2024 2:50 PM EDT documented as of this encounter Care Teams Print Shop Assistant Relationship Specialty Start Date End Date Marily Lock MD [address] [place] [phone] [email or web address] PCP - General Family Medicine 12/21/19 02/04/23 documented as of this encounter Additional Source Comments The information contained in this document represents components of the legal health record. It is not the complete legal health record.[facility]
--- OUTSIDE RECORDS SUMMARY | 2023-01-25 16:24 | XMS_ITS | Encounter Summary ---
Author Organization [facility] Address [address] [place] [address] Phone Care Team Providers Care Gasoline Locomotive Crane Operator Name Role Phone Marily Lock MD Primary Care Prov ider Encounter Details Date Type Department Care Team (Late st Contact Info) Description 01/25/2023 4:24 PM EDT Hospital Encounter [facility] [address] [place] [address] Margoth Pan CNP [address] [place] [address] [email or web address] Social History Tobacco Use Types Packs/Day Years [...] Author No Risk Indicated 08/31/2024 9:49 AM Jovanny Spaulding RN * [place] Suicide Severity Rating Scale (Screener/Recent Self-Report) Question [...] Name Priority Date/Time Associated Diagnosis Comments XR KNEE 4 OR MORE VIEWS (LEFT) Urgent/patient waiting 01/25/2023 4:42 PM EDT Fall in home, initial encounter Left anterior knee pain documented in this encounter Results * XR KNEE 4 OR MORE VIEWS (LEFT) (01/25/2023 4:42 PM EDT) Anatomical Region Laterality Modality Knee Left Computed Radiogr aphy 01/25/2023 4:54 PM EDT Impressions 01/25/2023 5:01 PM EDT 1. Cortical step-off along the proximal fibula, likely representing a minimally impacted proximal fibular fracture. Correlation with point tenderness. 2. 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 3. Chondrocalcinosis. Narrative 01/25/2023 5:01 PM EDT XR KNEE 4 OR MORE VIEWS (LEFT) COMPARISON: KNEE, BILATERAL FINDINGS: Left Knee: Cortical step-off along the proximal fibula. Minimal lateral subluxation of the tibia in relation to the femur in the setting of degenerative change. Severe medial tibiofemoral compartment narrowing and eawduclw-qs-vrgnxc lateral tibiofemoral compartment narrowing. Mild patellofemoral compartment narrowing with lateral patellar subluxation. Bulky tricompartmental osteophytes. Chondrocalcinosis. Qywwg-ed-ggckgcdo effusion. 1.8 cm dystrophic calcification along the posterior knee soft tissues, chronic in appearance. Procedure Note Shy Nuno MD - 01/25/2023 XR KNEE 4 OR MORE VIEWS (LEFT) COMPARISON: KNEE, BILATERAL FINDINGS: Left Knee: Cortical step-off along the proximal fibula. Minimal lateralsubluxation of the tibia in relation to the femur in the setting ofdegenerative change. Severe medial tibiofemoral compartment narrowing jupxmxbpehe-jw-kavclk lateral tibiofemoral compartment narrowing. Mildpatellofemoral compartment narrowing with lateral patellar subluxation.Bulky tricompartmental osteophytes. Chondrocalcinosis. Utajb-fd-qrlgqyizncvrzzov. 1.8 cm dystrophic calcification along the posterior knee softtissues, chronic in appearance. IMPRESSION: 1. Cortical step-off along the proximal fibula, likely representing aminimally impacted proximal fibular fracture. Correlation with pointtenderness. 2. 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 3. Chondrocalcinosis. Margoth Pan ADULT LIVE IN CAREGIVER IMG XR LOWER EXTREMITY Roz l Result documented in this encounter Visit Diagnoses Not on filedocumented in this encounter Additional Health Concerns Infection Onset Date Last Indicated Resolved Time CDiff-Risk 09/04/2024 09/04/2024 09/05/2024 2:50 PM EDT documented as of this encounter Care Teams Gasoline Locomotive Crane Operator Relationship Specialty Start Date End Date Marily Lock MD [address] [place] [phone] [email or web address] PCP - General Family Medicine 12/21/19 02/04/23 documented as of this encounter Additional Source Comments The information contained in this document represents components of the legal health record. It is not the complete legal health record.[facility]
[2025-08-16 06:31] LABS: MANUAL DIFF FLAG NO
[2025-08-16 06:45] LABS: Hematocrit 37.1 % (37.0-47.0); Hemoglobin 12.4 g/dl (12.0-16.0); Imm Gran Abs Auto 0.02 X10*3/uL (0.00-0.03); Imm Gran Pct Auto 0.3 % (0.0-0.4); Lymphocytes Absolute Auto 2.2 X10*3/uL (1.2-4.9); Mean Corpuscular HGB Conc 33.4 g/dl (31.0-35.0); Mean Corpuscular Hemoglobin 34.5 pg (27.0-33.0); Mean Corpuscular Volume 103.3 fL (80.0-98.0); NRBC Abs Auto 0.000 X10*3/uL (0.0-0.012); NRBC Pct Auto 0.0 /100WBC (0.0-0.2); Platelet Count 143 X10*3/uL (160-400); Red Blood Count 3.59 X10*6/uL (4.20-5.50); White Blood Count 6.2 X10*3/uL (4.8-10.8)
--- OUTSIDE RECORDS SUMMARY | 2025-08-16 06:48 | XMS_ITS | Encounter Summary ---
Author Organization [facility] Address [address] [place] [address] [place] [address] Phone Care Team Providers Care Simulation Developer Name Role Phone Marily Lock MD Primary Care Prov ider Chhaya Sosa NP Primary Care Provider [phone] Encounter Details Date Type Department Care Team (Late st Contact Info) Description 04/26/2020 Procedure Pass [facility] Endoscopy Admitting Dept Virtual Department [address] [place] [address] Social History Tobacco Use Types Packs/Day Years [...] documented as of this encounter Care Teams Simulation Developer Relationship Specialty Start Date End Date Marily Lock MD [address] [place] [address] [email or web address] PCP - General Family Medicine 12/21/19 02/04/23 Chhaya Sosa NP [address] [place] [address] [email or web address] PCP - General Nurse Practitioner 02/05/23 documented as of this encounter Additional Source Comments The information contained in this document represents components of the legal health record. It is not the complete legal health record.[facility]
--- OUTSIDE RECORDS SUMMARY | 2025-08-16 06:48 | XMS_ITS | Encounter Summary ---
Author Organization [facility] Address [address] [facility] [address] [place] [address] Phone Care Team Providers Care Learning Design Specialist Name Role Phone Chhaya Sosa NP Primary Care Provider [phone] Encounter Details Date Type Department Care Team (Late st Contact Info) Description 08/10/2024 Procedure Pass [facility] Endoscopy Admitting Dept Virtual Department [address] [place] [address] Social History Tobacco Use Types Packs/Day Years [...] documented as of this encounter Care Teams Learning Design Specialist Relationship Specialty Start Date End Date Chhaya Sosa NP [address] [place] [address] [email or web address] PCP - General Nurse Practitioner 02/05/23 documented as of this encounter Additional Source Comments The information contained in this document represents components of the legal health record. It is not the complete legal health record.[facility]
--- OUTSIDE RECORDS SUMMARY | 2025-08-16 06:48 | XMS_ITS | Encounter Summary ---
Author Organization [facility] Address [address] [facility] [address] [place] [address] Phone Care Team Providers Care Cullet Crusher And Washer Name Role Phone Chhaya Sosa NP Primary Care Provider [phone] Encounter Details Date Type Department Care Team (Latest Contact Info) Description 10/15/2024 Ancillary Orders [facility] Orth[facility]ics & Sports Medicine [address] [place] [address] [phone] Mana Flores PA-C [address] [place] [address] Orthopedics & Sports Medicine, [facility]. [place], [place] [id number] [email or web address] Fracture, hip (Primary Dx) Social [...] encounter note for this date of service. Mnaa Flores PA-C IMG XR PELVIS Final Re sult documented in this encounter Visit Diagnoses Diagnosis Fracture, hip Closed fracture of unspecified part of neck of femur Fracture, hip- Primary Closed fracture of unspecified part of neck of femur documented in this encounter Care Teams Cullet Crusher And Washer Relationship Specialty Start Date End Date Chhaya Sosa NP [address] [place] [address] [email or web address] PCP - General Nurse Practitioner 02/05/23 documented as of this encounter Additional Source Comments The information contained in this document represents components of the legal health record. It is not the complete legal health record.[facility]
--- OUTSIDE RECORDS SUMMARY | 2025-08-16 06:48 | XMS_ITS | Encounter Summary ---
Author Organization [facility] Address [address] [facility] [address] [place] [address] Phone Care Team Providers Care Culinary Assistant Name Role Phone Chhaya Sosa NP Primary Care Provider [phone] Encounter Details Date Type Department Care Team (Late st Contact Info) Description 05/18/2024 Procedure Pass [facility] Endoscopy Admitting Dept Virtual Department [address] [place] [address] Social History Tobacco Use Types Packs/Day Years [...] documented as of this encounter Care Teams Culinary Assistant Relationship Specialty Start Date End Date Chhaya Sosa NP [address] [place] [address] [email or web address] PCP - General Nurse Practitioner 02/05/23 documented as of this encounter Additional Source Comments The information contained in this document represents components of the legal health record. It is not the complete legal health record.[facility]
--- OUTSIDE RECORDS SUMMARY | 2025-08-16 06:48 | XMS_ITS | Encounter Summary ---
Author Organization [facility] Address [address] [facility] [address] [place] [address] Phone Care Team Providers Care Tunnel Drier Operator Name Role Phone Marily Lock MD Primary Care Prov ider Chhaya Sosa NP Primary Care Provider [phone] Encounter Details Date Type Department Care Team (Late st Contact Info) Description 12/01/2020 Ancillary Orders [facility] Medicine [address] [place] [address] [phone] Lauren Lowe PA-C [address] [place] [address] Orthopedics & Sports Medicine, [facility] [place], [place] [phone] [email or web address] Social History Tobacco Use Types Packs/Day Years [...] documented as of this encounter Care Teams Tunnel Drier Operator Relationship Specialty Start Date End Date Marily Lock MD [address] [place] [address] [email or web address] PCP - General Family Medicine 12/21/19 02/04/23 Chhaya Sosa NP [address] [place] [address] [email or web address] PCP - General Nurse Practitioner 02/05/23 documented as of this encounter Additional Source Comments The information contained in this document represents components of the legal health record. It is not the complete legal health record.[facility]
--- OUTSIDE RECORDS SUMMARY | 2025-08-16 06:48 | XMS_ITS | Encounter Summary ---
Author Organization [facility] Address [address] [facility] [address] [place] [address] Phone Care Team Providers Care Writing Tutor Name Role Phone Chhaya Sosa NP Primary Care Provider [phone] Encounter Details Date Type Department Care Team (Late st Contact Info) Description 03/15/2023 Procedure Pass [facility], [address] [address] Social History Tobacco Use Types Packs/Day Years [...] documented as of this encounter Care Teams Writing Tutor Relationship Specialty Start Date End Date Chhaya Sosa NP [address] [place] [address] [email or web address] PCP - General Nurse Practitioner 02/05/23 documented as of this encounter Additional Source Comments The information contained in this document represents components of the legal health record. It is not the complete legal health record.[facility]
--- OUTSIDE RECORDS SUMMARY | 2025-08-16 06:48 | XMS_ITS | Encounter Summary ---
Author Organization [facility] Address [address] [place] [address] Phone Care Team Providers Care Freight Car Cleaner Name Role Phone Chhaya Sosa NP Primary Care Provider [phone] Reason for Referral * Physical Therapy (Routine) - Closed Specialty Diagnoses / Procedures Referred By Antelmo lopez Referred To Contact Physical Therapy Diagnoses Encounter for rehabilitation Chhaya Sosa NP [address] [place] [address] Phone: tel: fax: mailto:[email or web address] [email or web address] [address] [place] [address] Phone: tel: Referral ID Status Reason Start Date Expiration Date Visits Re quested Visits Authorized [id number] Closed 04/23/2024 04/23/2025 1 1 Encounter Details Date Type Department Care Team (Late st Contact Info) Description 04/23/2024 Transcribe Orders [facility] [address] [place] [address] Chhaya Sosa NP [address] [place] [address] [email or web address] Encounter for rehabilitation (Primary Dx) Social History [...] Diagnoses Orde r Schedule Ambulatory referral to [facility] Physical Therapy Outpatient Referral Routine Encounter for rehabilitation Ordered: 04/23/2024 documented as of this encounter Visit Diagnoses Diagnosis Encounter for rehabilitation- Primary documented in this encounter Additional Health Concerns Infection Onset Date Last Indicated Resolved Time CDiff-Risk 09/04/2024 09/04/2024 09/05/2024 2:50 PM EDT documented as of this encounter Care Teams Freight Car Cleaner Relationship Specialty Start Date End Date Chhaya Sosa NP [address] [place] [address] [email or web address] PCP - General Nurse Practitioner 02/05/23 documented as of this encounter Additional Source Comments The information contained in this document represents components of the legal health record. It is not the complete legal health record.[facility]
--- OUTSIDE RECORDS SUMMARY | 2025-08-16 06:48 | XMS_ITS | Data Portability ---
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 Role Phone NIKITA LIN Primary Care Provide r СВЕТЛАНА ROBERSON 2ND FLOOR OTHER Assessment Encounter Date Assessment Date Assessment LastModified by Organization Details LastModified Time 11/09/2024 11/09/2024 Labs 09/14: Bu781-N 4.6-Bun 16- cr 0.7-wbc 7.1-hgb 9.4-hct 28.7-plt 222 Labs 09/28: Na 144- K 3.0-Bun 12- Cr 0.6-wbc 9.6-hgb 10.40 hct 31.0-plt 198 Labs 10/05:Na 141- K 3.7-Bun 13- Cr 0.6-wbc 5.5-hgb 10.7-hct 32.2-plt 163 Labs 10/13: Na 141-K 3.8-Bun 14-Cr 0.6-wbc 8.2-hgb 11.8-ywp83-an t 188-calcium 12.7 Labs 10/19: Na 141- [...] Address Organization Details Recorded Time Pulmonary emphysema 50415653 Active [address], [address], [place], [address], [facility] 3 10:46:22 Osteoarth ritis 455854754 Active [address], [address], [place], [address], [facility] 3 10:46:28 Asthma 014590152 Active [address], [address], [place], [address], [facility] 3 10:46:32 Cyst of breast 599133806 Completed 202209/07/2024 KIMBERLYN MERCEDES [address] [place] [address], [address], [place], [address], [facility] 4 20:44:27 Chronic obstructi ve pulmonary disease 80973348 Active [address], [address], [place], [address], [facility] 3 10:46:48 Obesity 246063304 Completed 202209/07/2024 KIMBERLYN MERCEDES [address] [place] [address], [facility] [address], [place], [address], [facility] 4 20:44:27 Depressiv e disorder 92561257 Active [address], [address], [place], [address], [facility] 3 10:47:08 Hyperlipi demia 91026965 Active [address], [address], [place], [address], [facility] 3 10:47:16 Polyp of colon 93663480 Completed 202209/07/2024 KIMBERLYN MERCEDES [address] , [address], [place], [address], [facility] 4 20:44:27 History of deep vein thrombosi s 803669658 Active 2022 [facility], [place], [address], [facility] 3 10:47:37 Essential hypertens ion 63295260 Active 2022 [facility] [address], [place], [address], [facility] 3 10:51:08 Closed fracture of left patella 932573833039 91994 Completed 202209/07/2024 KIMBERLYN MERCEDES [address] [facility], [address], [place], [address], [facility] 4 20:44:27 Gastroeso phageal reflux disease without esophagit is 394173516 Active [address] [place] [address], [address], [place], [address], [facility] 3 10:57:14 Fall Active 2022 VANGIE LORENZANA [address] [place] [address], [address], [place], [address], [facility] 3 11:02:17 Fracture of proximal end of femur 929557963 Completed 202309/07/2024 KIMBERLYN MERCEDES [address] [facility], [address], [place], [address], [facility] 4 10:10:21 Tobacco user 159003917 Active 2023 VANGIE LORENZANA [address] [place] [address], [address], [place], [address], [facility] 4 15:12:34 [facility] emia 71587991 Completed 202309/07/2024 KIMBERLYN MERCEDES [address] [facility], [address], [place], [address], [facility] 4 20:44:27 History of thrombocy topenia 877546943060 08 Completed 202309/07/2024 KIMBERLYN MERCEDES [address] [facility], [address], [place], [address], [facility] 4 20:48:33 Constipat ion 38563034 Active 2023 Holly Robles MD [address] [facility], [address], [place], [address], [facility] 4 21:45:11 Fracture of proximal end of femur 745506719 Active 2023 KIMBERLYN MERCEDES [address] [facility], [address], [place], [address], [facility] 4 10:10:21 Problem Notes None recorded. Procedures Surgical History Date Name Laterality Status Provider Name and Address Organization Details Recorded Time ligation of fallopian tube completed [address], [address], [place], [address], [facility] 01/28/2023 10:47:49 cholecystectomy completed [address], [facility] [address], [place], [address], [facility] 01/28/2023 10:47:57 Imaging Results None recorded. Procedure [...] Updated DateTime 5 172.72 cm 34 kg/m2 455524. 61 g 78 /min 18 /min 97.9 [degF] 95 % 95 % 142/78 mm[Hg] LILIA AVINA CNP [address] [facility], [address], [place], [address], [facility] 5 10:43:49 Date Recorded Body height Body temperature Respiratory rate Heart rate Oxygen saturation Oxygen saturation in Arterial blood by Pulse oximetry Systolic And Diastolic Provider Name and Address Organization Details Last Updated DateTime 5 172.72 cm 97.9 [degF] 18 /min 75 /min 96 % 96 % 120/67 mm[Hg] KIMBERLYN MERCEDES [address] [facility], [address], [place], [address], [facility] 5 18:30:55 Date Recorded Body height Body temperature Respiratory rate Heart rate Oxygen saturation Oxygen saturation in Arterial blood by Pulse oximetry Systolic And Diastolic Provider Name and Address Organization Details Last Updated DateTime 4 172.72 cm 98 [degF] 18 /min 71 /min 96 % 96 % 122/72 mm[Hg] KIMBERLYN MERCEDES [address] [facility], [address], [place], [address], [facility] 5 10:39:20 Social History Question Answer Notes LastModified by Organization Details LastModified Time Tobacco Smoking Status Former Smoker every day, 1 ppd VANGIE LORENZANA [address] [facility], [facility] [address], [place], [address], [facility] 01/28/2023 10:48:58 Do You Have An Advance Directive? Yes Information not available 07/20/2024 What Is Your Code Status? Full Code Information not available 01/28/2023 Where Do You Live? Apartment 1st Floor, Accessible. Information not available 07/20/2024 Legal Guardian? No Informati on not available 01/28/2023 Do You Have A Medical Power Of Manager Video Games? Yes Information not available 07/20/2024 What Was [...] (COVID-19) vaccine, UNSPECIFIED 1 completed [facility] 01/28/2023 16:51:35 SARS-COV-2 (COVID-19) vaccine, UNSPECIFIED 1 completed [facility] 01/28/2023 16:51:48 Tdap 5 completed [facility] 01/28/2023 16:52:09 influenza, unspecified formulation 1 ankit [facility] 01/28/2023 16:52:33 pneumococcal conjugate PCV 7 6 ankit [facility] 01/28/2023 16:53:01 pneumococcal polysaccharide PPV23 2 completed [facility] 01/28/2023 16:53:16 zoster recombinant 9 completed [facility] 01/28/2023 16:53:33 zoster live 2 completed [facility] 01/28/2023 16:53:50 Influenza, adjuvanted, quadrivalent, PF 2 completed [facility] 12/11/2023 11:33:48 Influenza, adjuvanted, quadrivalent, PF 3 completed [facility] 01/09/2024 11:17:44 Past Encounters Encounter ID Performer Location Encounter Start Date Encounter Closed Date Diagnosis/Indication Diagnosis SNOMED-CT Code Diagnosis ICD10 Code Diagnosis IMO Codes Diagnosis Note [id number] VANGIE Gonzalez at [facility] on [address] [place] [address] 01/28/2023 10:42:58 01/30/2023 14:52:45 Closed fracture of left patella 8466317373 4185172 S82.002D see HPI, s/p fallKnee immobilize r while OOBWBAT, PT/OT eval and treatmonit or pain control Hyperlipidemia 66254150 E78.5 lipitor 20 mg dailymonit or lipids outpt with PCP Essential hypertension 58047727 I10 cardizem 120 mg dailybenic ar 40-25 dailymonit or bps 136/78 today Gastroesop hageal reflux disease without esophagitis 732374004 K21.9 pepcid 20 mg BIDmonitor for reflux Chronic ob structive pulmonary disease 84294218 J44.9 combivent QIDmonitor resp statusenco urage smoking cessation Pulmonary emphysema 8743 3001 J43.9 see aboveencou rage cessation Depressive disorder 8614 6227 F32.A zoloft 100 mg dailymonit or mood, consult [facility] if needed Fall R29.6 fell after getting OOBminimiz e fall riskPT/OT eval and treat [id number] MD Carlos Byrd at [facility] on [address] [place] [id number] 01/29/2023 13:50:17 01/31/2023 09:49:56 Fracture of fibula 30509405 S82.402D follow ortho recs; working w pt/ot;has knee immobilize r per ortho;cons ider aspirin anticoagul ation if patient is immobilize d; Essential hypertension 32412584 I10 asymptomat ic; hemodynami alysia stable; good rate; clear lungs; good sats; follow; History of deep vein thrombosis 762976075 Z86.718 noted;afte r knee surgery 2000;she seems to be adequately mobilized at this pointconsi amelia aspirin; Asthma 429856870 J45.90 9 asymptomat ic; on combivent; Hypercholesterolemia 136 34768 E78.00 on statin; Depressive disorder 9360 8947 F32.A well compensate d; on sertraline Medication monitoring 39 7351388 Z51.81 [facility] / Olmesartan -Hydrochlo rothiazide 40/25 mg/d; cardizem CD 120 mg/d;pulm / combivent; endo / lipitor 20 mg/d;heme /gi / pepcid;gu /neuro / sertraline 100 mg/d; [id number] VANGIE LORENZANA [facility] at [facility] on [address] [place] [id number] 02/04/2023 09:11:52 02/06/2023 09:35:44 Closed fracture of left patella 7440808824 4499599 S82.002D see HPI, s/p fallKnee immobilize r while OOBWBAT, PT/OT to continue outpt with [facility] Hyperlipidemia 87708737 E78.5 lipitor 20 mg dailymonit or lipids outpt with PCP Essential hypertension 80192773 I10 cardizem 120 mg dailybenic ar 40-25 dailystabl e Gastroesop hageal reflux disease without esophagitis 695801003 K21.9 pepcid 20 mg BID Chronic ob structive pulmonary disease 57998764 J44.9 combivent QIDencoura ge smoking cessation Pulmonary emphysema 8743 3001 J43.9 see aboveencou rage cessation Depressive disorder 5836 8887 F32.A zoloft 100 mg daily Fall 6803482 R29.6 minimize fall risk at homeremove scatter risk [id number] VANGIE LORD GAMAL ANGEL [address] [place] [address] 07/18/2024 09:09:20 07/21/2024 09:00:14 Hyperlipidemia 97763562 E78.5 lipitor 20 mg dailymonit or lipids outpt with PCP Essential hypertension 59693156 I10 cardizem 300 mg dailyavali de dailymonit or bps 136/78 today Gastroesop hageal reflux disease without esophagitis 218914987 K21.9 pepcid 20 mg BIDmonitor for reflux Chronic ob structive pulmonary disease 76810578 J44.9 combivent QID prnmonitor resp statusenco urage smoking cessation Pulmonary emphysema 8743 3001 J43.9 see aboveencou rage cessation Depressive disorder 3548 9007 F32.A zoloft 100 mg dailyvitam in d3 dailymonit or mood, consult [facility] if needed Fall R29.6 see HPIminimiz e fall riskPT/OT eval and treat Tobacco user 117238488 Z 72.0 hx of heavy tobacco use and recently stopped secondary to stay at short-term rehab. She has not requested any nicotine replacemen t therapy while here but that can be offered if need be. Hypercalcemia 79399042 E 83.52 elevated serum calcium levels dating back to spring 2022.Mildl y elevated inpatient and do not appear to be causing her any symptomsHe r PTH was elevated suggesting primary hyperparat hyroidism. Patient should see endocrinol og through [facility] after discharge from nursing home facility.d tr aware to work on this Fracture o f proximal end of femur 658785420 S72.001A s/p pinningWBA T, PT/OT eval and treatmonit or pain controloxy codone 5 mg q 4 hours prnapap 650 mg q 6 hours prnlovenox 40 mg sq x 30 days [id number] MD GAMAL Mac [address] [place] [address] 07/20/2024 19:49:57 07/27/2024 09:02:40 Fracture of proximal end of femur 688059034 S72.021D Recovering as expected.C ontinue oxycodone 5 mg q 4 hrs prn and APAP 650 mg q 6 hrs prnContinu e lovenox 40 mg sq x 30 days for DVT prophylaxi s.Needs PT/OT for strengthen ing, balance, gait training, safety and function.C ontinue fall precaution s.Monitor for safety.F/U with ortho on 07/30 as planned. Essential hypertension 22054197 I10 In good control on diltiazem 300 mg qd and irbesartan /HCTZ 150/12.5 mgMonitor BP and labs. Hyperlipidemia 95469617 E78.49 Continue atorvastat in 20 mg qdMonitor labs as outpt. Gastroesop hageal reflux disease without esophagitis 222918239 K21.9 No current sxs.Contin ue famotidine 20 mg BIDMonitor for GI sxs. Chronic ob structive pulmonary disease 76771346 J43.8 No current sxs.Contin ue combivent 1 puff q 4 hrs prnMonitor resp statusCont inue to encourage smoking cessation Depressive disorder 3548 9007 F33.8 Continue sertraline 100 mg qdMood good today.[place]rid[place] tor mood.Consu lt psych prn Fall R29.6 PT/OT as above.Cont inue fall precaution s.Monitor for safety. 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 Has not smoked since in hospital/r ehab. Hypercalcemia 44385358 E 83.52 Probable primary hyperparat hyroidism. To f/u with endo outpt.[place]ridgett tor Ca+ levels. History of thrombocytopenia 1116030397 9108 Z86.2 Dropped post-op inpt, now back to nl.Monitor labs. Constipation 36690031 K5 9.03 Will give MOM tonight and start miralax 17 gms qd.Continu e prn medsMonito r bowel function. [id number] [place] [address] 07/23/2024 11:08:18 07/24/2024 12:29:48 Fracture of proximal end of femur 477017070 S72.001A s/p pinning- site healing wellWBAT, PT/OT eval and treatoxyco done 5 mg q 4 hours prn - still taking frequently apap 650 mg q 6 hours prnlovenox 40 mg sq x 30 days total Fall R29.6 continue PT dailyrepor ts pain with movement but tolerable with oxy Tear of skin 331803651 T 14.8XXD add xeroform to wound bed of skin tear on left arm and cover with foamchange dressing dailyonce healed [place] [id number] VANGIEDIMA ANGEL [address] [place] [address] 07/27/2024 09:01:00 07/29/2024 08:25:43 Fracture of proximal end of femur 912024007 S72.001A s/p pinning- site healing wellWBAT, PT/OT [...] working with physical therapy Tear of skin 780071869 T 14.8XXD add xeroform to wound bed of skin tear on left arm and cover with foamContin ue to change dressing dailyonce healed [place] [id number] KIMBERLY SAPP [address] [place] [address] 07/29/2024 11:12:02 07/30/2024 11:51:48 COVID-19 034992754 U07.1 tested posstable on RA, no ssbaseline cough and wheezing w/ h/o COPDpaxlov id not indicated at this timemainta in precaution sretest per protocolmo nitor VS and resp. status [id number] VANGIEDIMA ANGEL [address] [place] [address] 08/03/2024 09:12:48 08/04/2024 12:59:14 COVID-19 677766279 U07.1 Recoveredm onitor VS and resp. status Fracture o f proximal end of femur 298173466 S72.001A s/p pinning- site healing wellContin ue [...] drainage, color, and odor. Tear of skin 895269884 T 14.8XXD add xeroform to wound bed of skin tear on left arm and cover with foamContin ue to change dressing daily [id number] VANGIE ANGEL [address] [place] [address] 08/06/2024 10:51:39 08/07/2024 13:04:19 COVID-19 063536252 U07.1 Recovered Fracture o f proximal end of femur 860780505 S72.001A s/p pinning- site healing wellContin ue [...] drainage, color, and odor. Tear of skin 822807447 T 14.8XXD healing Fall R29.6 continue PT daily Essential hypertension 30793731 I10 cardizem 300 mg dailyavali de dailymonit or bps Hyperlipidemia 73368371 E78.5 lipitor 20 mg dailymonit or lipids outpt with PCP Gastroesop hageal reflux disease without esophagitis 339823984 K21.9 pepcid 20 mg BIDmonitor for reflux none noted Chronic ob structive pulmonary disease 28113012 J44.9 combivent QID prnmonitor resp statusenco urage smoking cessation Pulmonary emphysema 8743 3001 J43.9 see aboveencou rage cessation Depressive disorder 3755 5457 F32.A zoloft 100 mg dailyvitam in d3 dailymonit or mood, consult [facility] if needed [id number] VANGIE [place] [address] 08/11/2024 09:55:34 08/12/2024 11:44:33 Fracture of proximal end of femur 197592434 S72.001A s/p pinning, site healedorde r placed to remove tata todayConti nue WBAT, PT/OTConti nue oxycodone 5 mg q 4 hours prn- using randomlyCo ntinue apap 650 mg q 6 hours prnlovenox 40 mg sq x 30 days total to end 08/18 Edema of l ower extremity 955659721 R60.0 consider lasix dailyadd cbc bmp bnp tomorrowel evate 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 Patient should see endocrinol og through [facility] after discharge from nursing home facility.1 1.8 corrected [id number] VANGIE [place] [address] 08/19/2024 10:32:29 08/20/2024 13:56:24 Dizziness 427910015 R42 add cbc and bmp tomorrowen courage PO fluidscons ider IVF if neededmoni tor bps [id number] VANGIE [place] [address] 08/28/2024 09:55:39 08/31/2024 14:13:31 Dizziness 797793759 R42 resolved Edema of l ower extremity 115146002 R60.0 BNP in range for patientace wraps daily, off qhs Hypercalcemia 52536060 E 83.52 elevated serum calcium levels dating back to spring 2022.Mildl y elevated inpatient and do not appear to be causing her any symptomsHe r PTH was elevated suggesting primary hyperparat hyroidism. Patient should see endocrinol lise through [facility] after discharge from nursing home facility.1 1.8 corrected Fracture o f proximal end of femur 253132472 S72.001A s/p pinning, site healedDC oxycodone 5 mg q 4 hours prn-not usingConti nue apap 650 mg q 6 hours prn COVID-19 174941646 U07.1 Recovered Essential hypertension 60321600 I10 cardizem 300 mg dailyavali de daily Hyperlipidemia 59615872 E78.5 lipitor 20 mg dailymonit or lipids outpt with PCP Gastroesop hageal reflux disease without esophagitis 871121817 K21.9 pepcid 20 mg BID Chronic ob structive pulmonary disease 89785390 J44.9 combivent QID prnencoura ge smoking cessation Pulmonary emphysema 8743 3001 J43.9 see aboveencou rage cessation Depressive disorder 3055 3126 F32.A zoloft 100 mg dailyvitam in d3 daily [id number] [facility] [address] [place] [address] 09/07/2024 07:41:45 09/08/2024 13:21:36 Closed fracture of hip 876283561 S72.001A s/p ORIFcontin ue lovenox 40 mg daily/dvt ppx for until 10/06conti nue tylenol and oxycodone prnPT/OT eval and TXfollow up with ortho in 2 weeksStapl es covered with dressing intact - not removed Essential hypertension 03591160 I10 meds held in acute care due to soft BPparamete rs to hold for SBP < 120continu e cardizem 300 mg Depressive disorder 1263 0897 F32.A Zoloft 100 mg daily Hypercalcemia 68105448 E 83.52 elevated serum calcium levels dating back to spring 2022.Mildl y elevated inpatient and do not appear to be causing her any symptomsHe r PTH was elevated suggesting primary hyperparat hyroidism. Patient should see endocrinol lise through [facility] after discharge from nursing home facility.1 1.8 corrected Anemia fol lowing acute postoperative blood loss 6703791176 1830712 D62 surgery relatedhgb fell from 11.1 to 8.7did not require transfusio nmonitor hgb Hyperlipidemia 21575410 E78.5 lipitor 20 mg dailymonit or lipids outpt with PCP Gastroesop hageal reflux disease without esophagitis 945992674 K21.9 pepcid 20 mg BID Chronic ob structive pulmonary disease 83901667 J44.9 combivent QID prnencoura ge smoking cessation Asthma 981445833 J45.90 9 asymptomat ic; on combivent; History of deep vein thrombosis 682899222 Z86.718 after knee surgery 2000prior to fall not on anticoag due to active mobilityno 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 is d/c Fall R29.6 PT/OTmaint ain safety Osteoarthritis 760895992 M19.90 continue tylenol prn [id number] Timur Beebe MD [address] [address] 09/08/2024 13:34:28 09/09/2024 12:17:01 Closed fracture of hip 756968699 S72.001A see HPIright hip fx s/p ORIFfollow ortho recs and update with concernsmo nitor for pain controlPT OT eval and treatloven ox for EVT prophylaxi s Essential hypertension 09294428 I10 cardizem 300 mg qdmonitor bp and need to titrate Depressive disorder 3548 9007 F33.8 zoloft 100 mg qdcontinue dmonitor mood Anemia fol lowing acute postoperative blood loss 9437314876 4721940 D62 no transfusio n in hospitalre peat cbc orderediro n studies prn Hyperlipidemia 32120518 E78.2 lipitor 20 mg qdcontinue d Gastroesop hageal reflux disease without esophagitis 539326132 K21.9 famotidine 20 mg bidmonitor for sx relief Chronic ob structive pulmonary disease 07658343 J41.1 continue out patient medication smonitor albuterol utilizatio nencourage 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 Fall R29.6 PT OT eval and treatmonit or fall risk and need for increased support in community Osteoarthritis 839581188 M15.0 controlled with prn tylenoladd ed to PMH Hypokalemia 95120196 E87 .6 now on KCl 40 meqs qdrepeat bmpmonitor lytes [id number] KIMBERLYN MERCEDES [address] [address] 09/17/2024 09:31:46 09/21/2024 12:45:13 Closed fracture of hip 927092588 S72.001A s/p ORIFcontin ue PT/OTconti nue lovenox 40 mg daily/dvt ppx for until 10/06conti nue tylenol and oxycodone prnfollow up with ortho in 2 weeks 09/21/24 aples covered with dressing intact - not removed Essential hypertension 74430754 I10 BP stablecont inue cardizem 300 mg Depressive disorder 3548 9007 F32.A Zoloft 100 mg dailymood is good Hyperlipidemia 77496354 E78.5 lipitor 20 mg dailymonit or lipids outpt with PCP Gastroesop hageal reflux disease without esophagitis 795579938 K21.9 pepcid 20 mg BID Chronic ob structive pulmonary disease 97923458 J44.9 NO Increase WOBcombive nt QID prnencoura ge smoking cessation Fall R29.6 PT/OTmaint ain safety Fracture o f proximal end of femur 141218385 S72.001A s/p left proximal femur IM nail fixation 4cont inue PT/OT [id number] KIMBERLYN MERCEDES [address] [address] 09/21/2024 08:39:37 09/22/2024 11:47:04 Closed fracture of hip 248096002 S72.001A s/p ORIFcontin ue PT/OTconti nue lovenox 40 mg daily/dvt ppx for until 10/06conti nue tylenol and oxycodone prnfollow up with ortho in 2 weeks 09/21/24 aples covered with dressing intact - not removed Essential hypertension 00655478 I10 BP stablecont inue cardizem 300 mg Chronic ob structive pulmonary disease 42350417 J44.9 NO Increase WOBcombive nt QID prnencoura ge smoking cessation [id number] KIMBERLYN MERCEDES [address] [address] 10/01/2024 09:07:27 10/02/2024 10:23:31 Closed fracture of hip 045986694 S72.001A s/p ORIFcontin ue PT/OTconti nue lovenox 40 mg daily/dvt ppx for until 10/06conti nue tylenol and oxycodone prnfollow up with ortho in 2 weeks 09/21/24St aples covered with dressing intact - not removed Essential hypertension 86531372 I10 BP stablecont inue cardizem 300 mg Chronic ob structive pulmonary disease 70603649 J44.9 NO Increase WOBcombive nt QID prnencoura ge smoking cessation Acute hypokalemia 832669 03 E87.6 3.0not on diuretics , steroidsst art kcl 10 meq and recheck on 10/04 [id number] KIMBERLYN MERCEDES [address] [address] 10/05/2024 11:16:11 10/06/2024 11:11:03 Closed fracture of hip 443165478 S72.001A s/p ORIFcontin ue PT/OTconti nue lovenox 40 mg daily/dvt ppx for until 10/06conti nue tylenol and oxycodone prnfollow up with ortho in 2 weeks 09/21/24in cision healed Essential hypertension 87006575 I10 BP stablecont inue cardizem 300 mg Chronic ob structive pulmonary disease 01522897 J44.9 NO Increase WOBcombive nt QID prnencoura ge smoking cessation Acute hypokalemia 633254 03 E87.6 repleted po with kcl 10 meq improvemen t now noted 3.7? is decrease possible related to recent abx use she was on ciprofloxa jaden for UTIwill monitor K Pain of ri ght knee region 5448550059 64553 M25.561 reports pain started after hip repairdesc ribed as cramping, pain with dorsiflexi onshe is concerned for ? blood clotthere is no swelling or point tenderness will ord ultrasound will order tramadol 50 mg Q6 prn until pending results. [id number] [facility]LYN [facility] [address] [place] [address] 10/12/2024 12:11:08 10/15/2024 11:19:28 Closed fracture of hip [id number] S72.001A s/p ORIFcontin ue PT/OTconti nue lovenox 40 mg daily/dvt ppx for until 10/06conti nue tylenol and oxycodone prnfollow up with ortho in 2 weeks 09/21/24in cision healed Essential hypertension 19722686 I10 BP stablecont inue cardizem 300 mg Chronic ob structive pulmonary disease 39337357 J44.9 NO Increase WOBcombive nt QID prnencoura ge smoking cessation Pain of ri ght knee region 2443818132 89227 M25.561 see hpiimaging negative for DVTreports pain started after hip repairdesc ribed as cramping, pain with dorsiflexi onshe is concerned for ? blood clotthere is no swelling or point tenderness Hypercalcemia 69960362 E 83.52 today 12.7elevat ed serum calcium levels dating back to spring 2022.Mildl y elevated inpatient and do not appear to be causing her any symptomsHe r PTH was elevated suggesting primary hyperparat hyroidism. refer to endocrinol lise through [facility] after discharge from nursing home facilitydi scussed with nursing to hold calcium and vit D for now [id number] KIMBERLYN MERCEDES [facility]НА DA [address] [place] [address] [place] [address] 10/15/2024 08:36:48 10/16/2024 12:00:47 Closed fracture of hip 989463285 S72.001A s/p ORIFcontin ue PT/OTconti nue lovenox 40 mg daily/dvt ppx for until 10/06conti nue tylenol and oxycodone prnincisio n healed Essential hypertension 35421932 I10 BP stablecont inue cardizem 300 mg Chronic ob structive pulmonary disease 86095292 J44.9 NO Increase WOBcombive nt QID prnencoura ge smoking cessation Pain of ri ght knee region 5233309300 11440 M25.561 see hpiimaging negative for DVTreports pain started after hip repairdesc ribed as cramping, pain with dorsiflexi onshe is concerned for ? blood clotthere is no swelling or point tenderness Hypercalcemia 89392276 E 83.52 123: 12.7elevat ed serum calcium levels dating back to spring 2022.Mildl y elevated do not appear to be causing her any symptomsHe r PTH was elevated suggesting primary hyperparat hyroidism. [place] [facility] after discharge from nursing home facilitydi scussed with nursing to hold calcium and vit D for nowmonitor for associated sx [id number] KIMBERLYN MERCEDES [address] [place] [address] 10/19/2024 10:14:51 10/20/2024 14:17:10 Closed fracture of hip 596765874 S72.001A s/p ORIFcontin ue PT/OTconti nue tylenol and oxycodone prnincisio n healed Essential hypertension 42235770 I10 BP stablecont inue cardizem 300 mg Chronic ob structive pulmonary disease 71949777 J44.9 NO Increase WOBcombive nt QID prnencoura ge smoking cessation Pain of ri ght knee region 9518740363 65600 M25.561 see hpiimaging negative for DVTreports pain started after hip repairdesc ribed as cramping, pain with dorsiflexi onshe is concerned for ? blood clotthere is no swelling or point tenderness Hypercalcemia 58017392 E 83.52 lfpbyds40 9: 11.6elevat ed serum calcium levels dating back to spring 2022.Mildl y elevated do not appear to be causing her any symptomsHe r PTH was elevated suggesting primary hyperparat hyroidism. refer to endocrinol ogy through [facility] after discharge from nursing home facilitydi scussed with nursing to hold calcium and vit D for nowmonitor for associated sx Hypokalemia 10824745 E87 .6 see HPI/suspec t medication inducedK+ 3.2replace now with 20 meq for 1 dosewill add daily kcl 10 meq and continue to monitor. [id number] [facility] [address] [place] [address] [place] [address] 10/22/2024 08:21:15 10/23/2024 13:25:04 Closed fracture of hip 836774355 S72.001A s/p ORIFcontin ue PT/OT- progressin g slowlycont inue tylenol and oxycodone prnincisio n healed Essential hypertension 86872081 I10 BP stablecont inue cardizem 300 mg Chronic ob structive pulmonary disease 47532281 J44.9 NO Increase WOBcombive nt QID prnencoura ge smoking cessation Pain of ri ght knee region 7360479004 56734 M25.561 imaging negative for DVTthere is no swelling or point tenderness will schedule apap 975 mg TID, pain seems to be interferin g with therapy endurance. discussed with patient and nursing. Hypercalcemia 32669862 E 83.52 xadeifz96/ 9: 11.6elevat ed serum calcium levels dating back to spring 2022.Mildl y elevated do not appear to be causing her any symptomsHe r PTH was elevated suggesting primary hyperparat hyroidism. refer to endocrinol ogprakash through [facility] after discharge from nursing home facilitydi scussed with nursing to hold calcium and vit D for nowmonitor for associated sx Hypokalemia 85107974 E87 .6 see HPI/suspec t medication inducedK+ 3.2replace now with 20 meq for 1 dosewill add daily kcl 10 meq and continue to monitor. [id number] [facility] [address] [place] [address] [place] [address] 10/26/2024 10:36:56 10/27/2024 12:05:26 Closed fracture of hip 781177826 S72.001A s/p ORIFcontin ue PT/OT- progressin g slowlycont inue tylenol and oxycodone prnincisio n healed Chronic ob structive pulmonary disease 74285449 J44.9 NO Increase WOBcombive nt QID prnencoura ge smoking cessation Pain of ri ght knee region 0672270882 64662 M25.561 imaging negative for DVTthere is no swelling or point tenderness continue apap 975 mg TID Hypokalemia 80014097 E87 .6 see HPI/suspec t medication inducedK+ 3.8continu e kcl 10 meq daily.[place] tor labs [id number] KIMBERLYN MERCEDES [address] [address] 11/02/2024 10:15:17 11/03/2024 09:53:07 Closed fracture of hip 474584896 S72.001A s/p ORIFcontin ue PT/OT- progressin g slowlycont inue tylenol and oxycodone prnincisio n healed Chronic ob structive pulmonary disease 27357087 J44.9 NO Increase WOBcombive nt QID prnencoura ge smoking cessation Dysuria 89953373 R30.0 patient room has strong urine odorUA / C&S pendingnur sing reports hygiene issues noted during straight cathincrea sed fluids encouraged . [id number] KIMBERLYN MERCEDES [address] [address] 11/05/2024 13:49:31 11/06/2024 12:22:28 Dysuria 31177554 R30.0 patient room has strong urine odornursin g reports hygiene issues noted during straight cathincrea sed fluids encouraged . Recurrent urinary tract infection 930139387 N39.0 see hpiC&S results shows sensitivit y to ceftriaxon ewill stop macrobid and start on ceftriaxon e 1 g qd for 3 daysdiscus sed with nursing [id number] KIMBERLYN MERCEDES [address] [address] 11/09/2024 13:20:09 11/18/2024 11:14:37 Recurrent urinary tract infection 580211621 N39.0 abx completedm onitor for reoccurenc ewater/ increased fluids encouraged [id number] KIMBERLYN MERCEDES [address] [address] 12/10/2024 15:22:50 12/14/2024 16:02:52 Left sided abdominal pain 272637527 R10.9 patient states that she has had this pain in the past and it has been intermitte nt and ongoing, she does not recall if she has seen GIdiscusse d with patient and nursingche ck labs cbc, CMP,straig ht cath for UA with c/sxray KUBconside r referral to GI if labs are non specific Dizziness 129362900 R42 BP 160's (could be related to pain)start meclizine 12.5 mg q 8 prnmonitor for resolution [id number] Timur Beebe MD [address] [address] 01/10/2025 12:58:13 01/11/2025 15:58:22 Fall R29.6 therapy followingm onitor fall risk and need for increased support in community vs need to stay LTC Essential hypertension 73813273 I10 cardizem 300 mg qdmonitor bp and need to titrate Gastroesop hageal reflux disease without esophagitis 778610989 K21.9 famotidine 20 mg bidmonitor for sx relief Asthenia 65491202 R53.1 continues to require assist with ADLsworkin g with therapypat ient goal is still home [id number] LILIA AVINA CNP [address] [address] 03/10/2025 10:41:17 03/12/2025 14:08:03 Asthenia 13347427 R53.1 continues to require assist with ADLsworkin g with therapyPT and OT, PRN.patien t goal is still home Fall R29.6 no new falls reportedth erapy followingm onitor fall risk and need for increased support in community vs need to stay LTC Essential hypertension 98735227 I10 BP stablecont inuecardiz em 300 mg qdmonitor bp and need to titrate Gastroesop hageal reflux disease without esophagitis 414178635 K21.9 stablefamo tidine 20 mg bidmonitor for sx relief [id number] KIMBERLYN MERCEDES [address] [address] 05/19/2025 05:49:03 05/21/2025 13:03:50 Asthenia 06067542 R53.1 continues to require assist with ADLsworkin g with therapyPT and OT, PRN. Fall R29.6 no new falls reportedth erapy followingm onitor fall risk and need for increased support in community vs need to stay LTC Essential hypertension 80107932 I10 BP stablecont inuecardiz em 300 mg qdmonitor bp and need to titrate Gastroesop hageal reflux disease without esophagitis 606646981 K21.9 stablefamo tidine 20 mg bidmonitor for sx relief Asthma 818846940 J45.90 9 asymptomat ic; on combivent; Chronic ob structive pulmonary disease 40735801 J44.9 NO Increase WOBcombive nt QID prnstable [...] Porras Member ID Guarantor Name 05/19/2025 2 [place] [facility] Anabela Juarezhop [id number] [facility] 05/19/2025 1 MEDICARE B[place]: [employer] [facility] [id number] [facility] Notes Date Note Type Note Provider Name and Address Organization Details Recorded Time 11/09/2024 text/html ROS as noted in the HPI This is a 74 yr old femal patient seen for acute rounding visit. Patient is doing well, she is at her baseline in [facility]. There sre no acute nursing concerns. She Kaye completed abx therapy and is not experiencing any UTI sx at this time. KIMBERLYN MERCEDES [address] [facility], [address], [place], [address], [facility] 11/18/2024 10:47:49 12/10/2024 text/html ROS as noted [...] or distention. KIMBERLYN MERCEDES [address], [address], [place], [address], [facility] 12/10/2024 18:43:42 01/10/2025 text/html ROS as [...] home with services Timur Beebe MD [address], [address], [place], [address], [facility] 01/10/2025 13:02:00 03/10/2025 text/html ROS as [...] 55, high risk. LILIA AVINA CNP [address], [address], [place], [address], [facility] 03/10/2025 10:52:49 05/19/2025 text/html ROS as noted in the HPI 74 yo female now LTC resident seen for routine rounding visit. Patient was initially admit from hospital presenting after mechanical fall with right hip pain. Imaging positive for fracture, eval by ortho and underwent ORIF. Medically she has been stable, there has been no acute concerns. KIMBERLYN MERCEDES [address], [address], [place], [address], [facility] 05/20/2025 18:46:38 OBGyn Episode No OBEpisode recorded.
--- OUTSIDE RECORDS SUMMARY | 2025-08-16 06:48 | XMS_ITS | Encounter Summary ---
Author Organization [facility] Address [address] [facility] [address] [place] [address] Phone Care Team Providers Care Marketing Researcher Name Role Phone Marily Lock MD Primary Care Prov ider Chhaya Sosa NP Primary Care Provider [phone] Encounter Details Date Type Department Care Team (Late st Contact Info) Description 12/01/2020 Ancillary Orders [address] [id number] Lauren Lowe PA-C [address] [place] [address] Orthopedics & Sports Medicine, [facility]. [place], [place] [id number] [email or web address] Right wrist pain Social [...] documented as of this encounter Care Teams Marketing Researcher Relationship Specialty Start Date End Date Marily Lock MD [address] [place] [address] [email or web address] PCP - General Family Medicine 12/21/19 02/04/23 Chhaya Sosa NP [address] [place] [address] [email or web address] PCP - General Nurse Practitioner 02/05/23 documented as of this encounter Additional Source Comments The information contained in this document represents components of the legal health record. It is not the complete legal health record.[facility]
--- OUTSIDE RECORDS SUMMARY | 2025-08-16 06:48 | XMS_ITS | Clinical Summary ---
Author Organization [facility] Address [address] [address] Phone Care Team Providers Care Flame Hardening Machine Operator Name Role Phone Chhaya Sosa NP Primary Care Provider [phone] Allergies No known active allergies Medications sertraline [...] PCP [place] [facility] [place] fracture 07/14/2024 Assessment & Plan (09/04/2024 [...] (07/16/2024 10:24 AM EDT): Continue diltiazem. Called [facility]. Pt is prescribed irbesrtan/HCTZ 150/12.5, last [...] this topic Medical Devices Implanted Type Area Recorder Of Deeds Device Identifier Shelf Expiration Date Model / Serial / Lot 12mm/130 Deg Ti Michael Tfna 235mm/Left Implanted:Qty: 1 on 07/15/2024 by Dheeraj Corley MD at [facility] Nail Left: Femur [employer] 10/10/2033 04.037.245 S / / [id number] Screw Bone 10.2l076bt Fenestrated Aqanife Tfn Advanced - [id number] Implanted:Qty: 1 on 07/15/2024 by Dheeraj Corley MD at [facility] Left: Femur J [employer] 04/10/2034 04.038.205 S / / [id number] Screw Bone 5x38mm Xl25 Locking Medullary Nail Compatible - [id number] Implanted:Qty: 1 on 07/15/2024 by Dheeraj Corley MD at [facility] Left: Femur [employer] 01/08/2034 04.045.038 S / / [id number] Nail Bone 62q601ay 125deg Ti Cannulated Tfn Advanced Right - [id number] Implanted:Qty: 1 on 09/02/2024 by Dheeraj Corley MD at [facility] Right: Leg J [employer] 06/10/2033 04.037.132 S / / [id number] Bone Screw 95mm Fenestrated Aqanife Tfn Advanced - [id number] Implanted:Qty: 1 on 09/02/2024 by Dheeraj Corley MD at [facility] Right: Leg JNJ [employer] 04/10/2034 04.038.195 S / / [id number] Screw Bone 5x48mm Locking Xl25 Recess Medullary Nail Compatible - [id number] Implanted:Qty: 1 on 09/02/2024 by Dheeraj Corley MD at [facility] Right: Leg [employer] 12/11/2032 04.045.048 S / / [id number] Screw Bone 5x50mm Xl25 Locking Im Nail Compatible - [id number] Implanted:Qty: 1 on 09/02/2024 by Dheeraj Corley MD at [facility] Right: Leg [employer] 06/10/2033 04.045.050 / / [id number] Procedures Procedure Name Priority Date/Time Associated Diagnosis [...] EDT) SODIUM 139 133 - 146 mmol/L [facility] CHLORIDE 100 96 - 108 mmol/L [facility] POTASSIUM 3.7 3.3 - 5.1 mmol/L [facility] CO2 34 21 - 35 mmol/L [facility] BUN 22(H) 6 - 19 mg/dL [facility] CREATININE 0.60 0.5 - 1.5 mg/dL [facility] GLUCOSE 97 70 - 99 mg/dL [facility] CALCIUM 10.4(H) 8.4 - 10.3 mg/dL [facility] EGFR 95 >59 mL/min/1.7 3m2 [facility] Comment:Estimated glomerular filtration rate calculated using the CKD-EPI refit equation. ANION GAP 9(L) 10 - 20 mmol/L [facility] Blood 09/05/2024 8:15 AM EDT 09/05/2024 8:21 AM EDT Nina Montes DO LAB BLOOD ORDERABLES Final Result [facility] [address] [place] [address] * BI MAMMOGRAM DIAGNOSTIC WITH TOMOSYNTHESIS WITH [...] 69 Admit Type: Outpatient Gender: Female Room: [place] [address] Referring MD: Marily Guevara MD Exam Type: [...] monitored continuously. The Olympus adult variable colonoscope [id number] #7was introduced through the anus and advanced [...] 12:35 PM Procedure Code(s): --- Professional --- 87727, Colonoscopy, flexible; with removal of tumor(s), polyp(s), or other lesion(s) by snare technique --- Technical --- 94884, Colonoscopy, flexible; with removal of tumor(s), polyp(s), or other lesion(s) by snare technique CPT copyright 2018 [employer]. All rights reserved. The codes documented in this report are preliminary and upon building stonecutter reviewmay be revised to meet current compliance requirements. Procedure Date: 04/26/2020 12:35:59 PM [address] [place] [address] Marily Guevara MD GI PROCEDURE ORDER ANDREW Final Result * Outside LDL (05/22/2011) LDL - External 114 50 - 250 mg/ml Historical Provider LAB BLOOD ORDERABLES Roz l Result from Last 3 Months or Most Recently Relevant to Health Maintenance Insurance MEDICARE PART [place] [address] [place] [id number] [facility]IC[facility] [address] [place] [address] MEDICARE PART A & B Member Subscriber Plan / Payer ( fective 2003-Present) Name:Anabela Gillette Member ID:[id number] Relation to Subscriber:Self Name:Anabela Gillette Subscriber ID:[id number] Payer ID:[id number] Group ID:Not on file Type:Medicare Address: [employer] [address] [place] A [place] [facility] [place] & B HEALTH MEDICARE PART A & B [facility] Advance Directives For more information, please contact: [phone] (9AM - 5PM [facility], Saturday-Saturday) Documents on File Type Date Recorded Patient Edge Trimmer Expl anation Healthcare Proxy 01/26/2023 signed 01/26 [...] Agents on File Name Relationship Healthcare Agent [facility] Communication Jocelin Castellon Daughter .Primary Health Care Agent (Proxy form on file) Care Teams Flame Hardening Machine Operator Relationship Specialty Start Date End Date Chhaya Sosa NP [address] [place] [address] [email or web address] PCP - General Nurse Practitioner 02/05/23 Additional Source Comments The information contained in this document represents components of the legal health record. It is not the complete legal health record.[facility]
--- OUTSIDE RECORDS SUMMARY | 2025-08-16 06:48 | XMS_ITS | Encounter Summary ---
Author Organization [facility] Address [address] [place] [address] [place] [address] Phone Care Team Providers Care Etcher Printed Circuit Boards Name Role Phone Marily Lock MD Primary Care Prov ider Chhaya Sosa NP Primary Care Provider [phone] Encounter Details Date Type Department Care Team (Late st Contact Info) Description 04/25/2020 Procedure Pass [facility] Endoscopy Admitting Dept Virtual Department [address] [place] [address] Social History Tobacco Use Types Packs/Day Years [...] documented as of this encounter Care Teams Etcher Printed Circuit Boards Relationship Specialty Start Date End Date Marily Lock MD [address] [place] [address] [email or web address] PCP - General Family Medicine 12/21/19 02/04/23 Chhaya Sosa NP [address] [place] [address] [email or web address] PCP - General Nurse Practitioner 02/05/23 documented as of this encounter Additional Source Comments The information contained in this document represents components of the legal health record. It is not the complete legal health record.[facility]
--- OUTSIDE RECORDS SUMMARY | 2025-08-16 06:48 | XMS_ITS | Encounter Summary ---
Author Organization [facility] Address [address] [facility] [address] [place] [address] Phone Care Team Providers Care Gas Engine Operator Generators Name Role Phone Chhaya Sosa NP Primary Care Provider [phone] Encounter Details Date Type Department Care Team (Late st Contact Info) Description 07/15/2024 Procedure Pass [place] Admitting Dept - Virtual Department [address] [place] [address] Social History Tobacco Use Types Packs/Day Years [...] documented as of this encounter Care Teams Gas Engine Operator Generators Relationship Specialty Start Date End Date Chhaya Sosa NP [address] [place] [address] [email or web address] PCP - General Nurse Practitioner 02/05/23 documented as of this encounter Additional Source Comments The information contained in this document represents components of the legal health record. It is not the complete legal health record.[facility]
--- OUTSIDE RECORDS SUMMARY | 2025-08-16 06:48 | XMS_ITS | Encounter Summary ---
Author Organization [facility] Address [address] [facility] [address] [place] [address] Phone Care Team Providers Care Slubber Tender Name Role Phone Chhaya Sosa NP Primary Care Provider [phone] Encounter Details Date Type Department Care Team (Late st Contact Info) Description 03/15/2023 Procedure Pass [facility], [address] [address] Social History Tobacco Use Types Packs/Day Years [...] documented as of this encounter Care Teams Slubber Tender Relationship Specialty Start Date End Date Chhaya Sosa NP [address] [place] [address] [email or web address] PCP - General Nurse Practitioner 02/05/23 documented as of this encounter Additional Source Comments The information contained in this document represents components of the legal health record. It is not the complete legal health record.[facility]
--- OUTSIDE RECORDS SUMMARY | 2025-08-16 06:48 | XMS_ITS | Encounter Summary ---
Author Organization [facility] Address [address] [facility] [address] [place] [address] Phone Care Team Providers Care Lactation Coordinator Name Role Phone Chhaya Sosa NP Primary Care Provider [phone] Encounter Details Date Type Department Care Team (Late st Contact Info) Description 09/02/2024 Procedure Pass [place] Admitting Dept - Virtual Department [address] [place] [address] Social History Tobacco Use Types Packs/Day Years [...] documented as of this encounter Care Teams Lactation Coordinator Relationship Specialty Start Date End Date Chhaya Sosa NP [address] [place] [address] [email or web address] PCP - General Nurse Practitioner 02/05/23 documented as of this encounter Additional Source Comments The information contained in this document represents components of the legal health record. It is not the complete legal health record.[facility]
--- OUTSIDE RECORDS SUMMARY | 2025-08-16 06:48 | XMS_ITS | Clinical Summary ---
Author Organization [facility] [address] Address [address] [place] [address] Phone Care Team Providers Care Sergeant Of Corrections Name Role Phone Saqib Lock MD Primary Care Provi amelia Medical History Medical History Date Comments Current every day smoker DX:Curr ent every day smoker Essential (primary) hypertension DX:Essential (primary) hypertension COPD (chronic obstructive pu lmonary disease) (CMS/HCC V24, CMS/HCC V28) DX:COPD (chronic o bstructive pulmonary disease) ([facility]) Depression DX:Depression Thyroid disease DX:Thyroid [...] Health Maintenance Due Date Last Done Comments Colorectal Cancer Screening: Colonoscopy 1950 RSV Immunization Adult Patients (1 - Risk 60-74 years 1-dose series) 2010 Zoster Vaccines (3 of 3) 06/06/2019 019, 12/31/2011 Cholesterol Screening (Lipid Panel) 10/09/2022 Falls Risk Assessment 10/09/2022 Hepatitis C [...] Insurance MEDICAID - [place] MEDICARE Care Teams Sergeant Of Corrections Relationship Specialty Start Date End Date Saqib Lock MD [address] [place] [address] PCP - General 10/30/22
[2025-08-16 07:18] LABS: Anion Gap 9 (12-20); Blood Urea Nitrogen 18 mg/dL (9-16); Calcium 10.9 mg/dL (8.4-10.2); Carbon Dioxide 30 mmol/L (22-29); Chloride 109 mmol/L (96-108); Estimated Glomerular Filt Rate > 60; Potassium 3.9 mmol/L (3.3-5.1); Sodium 144 mmol/L (135-145)
== END 2025-08-16 06:41 | disposition home or self-care (01) ==
LOC: HO.MMNH3L 06:40
PROVIDERS: Visit Provider Family Medicine
DX: I10 Essential (primary) hypertension (principal); J44.9 Chronic obstructive pulmonary disease, unspecified; E78.5 Hyperlipidemia, unspecified
CPT/HCPCS: 36415; 80048; 85025

== ENCOUNTER 2025-08-23 06:52 | Outpatient (REF) | payer MEDICARE, MEDICAID, SELFPAY ==
--- OUTSIDE RECORDS SUMMARY | 2020-11-15 18:21 | XMS_ITS | Encounter Summary ---
Author Organization [facility] Address [address] [place] [address] Phone Care Team Providers Care Bench Loom Weaver Name Role Phone Marily Lock MD Primary Care Prov ider Encounter Details Date Type Department Care Team (Late st Contact Info) Description 11/15/2020 5:21 PM EST Hospital Encounter [facility] [address] [place] [phone] Margoth Pan CNP [address] [place] [address] Social History Tobacco Use Types Packs/Day Years Used Date Smoking Tobacco: Every Day Cigarettes Smokeless Tobacco: Never Comments:[facility]'t smoke at [facility] currently Alcohol Use Standard Drinks/Week Comments Not Currently 0 (1 standard drink = 0.6 oz pur e alcohol) Home Health Assessment: Transportation Answer Date Recorded Lack of Transportation (Medical) No 02/06/2023 Lack of Transportation (Non-Medical) No 02/06/2023 Patient Unable or Declines to Respond No 02/06/2023 Education Answer Date Recorded Are you interested in more education? Not on antonio e 03/08/2023 Are you concerned about learning? Not on file 03/08/2023 No 03/08/2023 No 03/08/2023 Food Answer Date Recorded Within the past 6 months we worried whether our food would run out before we got money to buy more. Never True 08/31/2024 Within the past 6 months the food we bought just didn't last and we didn't have enough money to get more. Never True Residential Stability Answer Date Recor ded What is your housing situation today? I have kaity mayo 08/31/2024 How many times have you move d in the past 12 months? Zero (I did not move) 08/31/2024 Paying for Meds Answer Date Recorded Do you have trouble paying for medicines? No 08/31/2024 Paying Utility Bills Answer Date Record ed Do you have trouble paying your heating or elect ricity bill? No 08/31/2024 Transportation Answer Date Recorded Has the lack of transportati on kept you from medical appointments or from getting medications? No 08/31/2024 Digital Access Answer Date Recorded Yes 08/31/2024 Yes 08/31/2024 Do you have reliable internet access at home? No 08/31/2024 Do you have a device (e.g., phone, tablet, computer) with a working camera? Yes 08/31/2024 Intimate Partner Violence Answer Date R ecorded Are you denied basic needs s uch as food, clothing, or medical care? No 08/31/2024 In the past 12 months have y ou been in a relationship with a person who hurts, threatens, or tries to control you? No 08/31/2024 Are you denied basic needs s uch as food, clothing, or medical care? No 08/31/2024 In the past 12 months have y ou been in a relationship with a person who hurts, threatens, or tries to control you? No 08/31/2024 Comments No Sex and Gender Information Value Date Recorded Sex Assigned at Female 02/06/2023 2:13 PM EDT Legal Sex Female 10:02 PM EDT Gender Identity Female 02/06/2023 2:13 PM EDT Sexual Orientation Not on file documented as of this encounter Functional Status * Calculated C-SSRS Risk Score (Lifetime/Recent) Answer Date of Assessment Author No Risk Indicated 08/31/2024 9:49 AM EDT Jovanny Lazaro RN * [place] Suicide Severity Rating Scale (Screener/Recent Self-Report) Question Answer Date of Assessment Author 1. Wish to be (Past 1 Month) No 024 9:49 AM Beth Spaulding RN 2. Non-Specific Active Suici angie Thoughts (Past 1 Month) No 08/31/2024 9:49 AM EDT Beth Lazaro RN 6. Suicidal Behavior (Lifetime) No 9:49 AM EDT Beth Lazaro RN documented as of this encounter Plan of Treatment Not on file documented as of this encounter Procedures Procedure Name Priority Date/Time Associated Diagnosis Comments XR RIBS 3 OR MORE VIEWS WITH PA CHEST (RIGHT) Urgent/patient waiting 11/15/2020 5:45 PM EST Fall from slip, trip, or stumble, initial encounter documented in this encounter Results * XR RIBS 3 OR MORE VIEWS WITH PA CHEST (RIGHT) (11/15/2020 5:45 PM EST) Anatomical Region Laterality Modality Chest Radiographic Christelle ging 11/15/2020 5:48 PM EST Impressions 11/15/2020 5:54 PM EST No displaced right-sided rib fracture. Given the relative low sensitivity of radiographs, if there is high clinical suspicion for nondisplaced rib fracture, CT can be considered. Narrative 11/15/2020 5:54 PM EST TECHNIQUE: XR RIBS 3 OR MORE VIEWS WITH PA CHEST (RIGHT) COMPARISON: Chest radiograph 08/14/2014. FINDINGS: No displaced right-sided rib fracture. Bilateral lungs are clear without focal consolidation, pleural effusion or pneumothorax is normal cardiac size. Aortic atherosclerotic calcification. Severe degenerative change of bilateral glenohumeral joints. Procedure Note Emma Navas MD - 11/15/2020 TECHNIQUE: XR RIBS 3 OR MORE VIEWS WITH PA CHEST (RIGHT) COMPARISON: Chest radiograph 08/14/2014. FINDINGS: No displaced right-sided rib fracture. Bilateral lungs are clear withoutfocal consolidation, pleural effusion or pneumothorax is normal cardiacsize. Aortic atherosclerotic calcification. Severe degenerative change ofbilateral glenohumeral joints. IMPRESSION: No displaced right-sided rib fracture. Given the relative low sensitivity of radiographs, if there is highclinical suspicion for nondisplaced rib fracture, CT can be considered. us Margoth Zach Viviane MIDDLEWARE ENGINEER IMG XR CHEST Final Resul t documented in this encounter Visit Diagnoses Not on filedocumented in this encounter Additional Health Concerns Infection Onset Date Last Indicated Resolved Time CDiff-Risk 09/04/2024 09/04/2024 09/05/2024 2:50 PM EDT documented as of this encounter Care Teams Bench Loom Weaver Relationship Specialty Start Date End Date Marily Lock MD [address] [place] [address] [phone] [email or web address] PCP - General Family Medicine 12/21/19 02/04/23 documented as of this encounter Additional Source Comments The information contained in this document represents components of the legal health record. It is not the complete legal health record.[facility]
--- OUTSIDE RECORDS SUMMARY | 2020-11-15 18:21 | XMS_ITS | Encounter Summary ---
Author Organization [facility] Address [address] [place] [address] Phone Care Team Providers Care Lube Man Name Role Phone Marily Lock MD Primary Care Prov ider Encounter Details Date Type Department Care Team (Late st Contact Info) Description 11/15/2020 5:21 PM EST Hospital Encounter [facility] [address] [place] [address] Margoth Pan CNP [address] [place] [phone] [email or web address] Social History Tobacco Use Types Packs/Day Years [...] 9:49 AM EDT Jovanny Lazaro RN * [place] Suicide Severity Rating Scale (Screener/Recent Self-Report) Question [...] can be considered. us Margoth Zach Viviane TEST BORER IMG XR CHEST Final Resul t documented in this encounter Visit Diagnoses Not on filedocumented in this encounter Additional Health Concerns Infection Onset Date Last Indicated Resolved Time CDiff-Risk 09/04/2024 09/04/2024 09/05/2024 2:50 PM EDT documented as of this encounter Care Teams Lube Man Relationship Specialty Start Date End Date Marily Lock MD [address] [place] [address] [phone] [email or web address] PCP - General Family Medicine 12/21/19 02/04/23 documented as of this encounter Additional Source Comments The information contained in this document represents components of the legal health record. It is not the complete legal health record.[facility]
--- OUTSIDE RECORDS SUMMARY | 2020-11-15 18:21 | XMS_ITS | Encounter Summary ---
Author Organization [facility] Address [address] [place] [address] Phone Care Team Providers Care Instructor Kindergarten Name Role Phone Marily Lock MD Primary Care Prov ider Encounter Details Date Type Department Care Team (Late st Contact Info) Description 11/15/2020 5:21 PM EST Hospital Encounter [facility] [address] [place] [address] Margoth Pan CNP [address] [place] [address] Social History Tobacco Use Types Packs/Day Years [...] 9:49 AM EDT Jovanny Lazaro RN * [place] Suicide Severity Rating Scale (Screener/Recent Self-Report) Question [...] distal radial metaphysis. us Margoth Zach Viviane SECURITY SOFTWARE ENGINEER IMG XR UPPER EXTREMITY Roz l Result documented in this encounter Visit Diagnoses Not on filedocumented in this encounter Additional Health Concerns Infection Onset Date Last Indicated Resolved Time CDiff-Risk 09/04/2024 09/04/2024 09/05/2024 2:50 PM EDT documented as of this encounter Care Teams Instructor Kindergarten Relationship Specialty Start Date End Date Marily Lock MD [address] [place] [phone] [email or web address] PCP - General Family Medicine 12/21/19 02/04/23 documented as of this encounter Additional Source Comments The information contained in this document represents components of the legal health record. It is not the complete legal health record.[facility]
--- OUTSIDE RECORDS SUMMARY | 2020-11-15 18:21 | XMS_ITS | Encounter Summary ---
Author Organization [facility] Address [address] [place] [address] Phone Care Team Providers Care Reject Opener Name Role Phone Marily Lock MD Primary Care Prov ider Encounter Details Date Type Department Care Team (Late st Contact Info) Description 11/15/2020 5:21 PM EST Hospital Encounter [facility] [address] [place] [address] Margoth Pan CNP [address] [place] [address] Social History Tobacco Use Types Packs/Day Years [...] 9:49 AM EDT Jovanny Lazaro RN * [place] Suicide Severity Rating Scale (Screener/Recent Self-Report) Question [...] distal radial metaphysis. us Margoth Zach Viviane GENERAL REPAIR MECHANIC IMG XR UPPER EXTREMITY Roz l Result documented in this encounter Visit Diagnoses Not on filedocumented in this encounter Additional Health Concerns Infection Onset Date Last Indicated Resolved Time CDiff-Risk 09/04/2024 09/04/2024 09/05/2024 2:50 PM EDT documented as of this encounter Care Teams Reject Opener Relationship Specialty Start Date End Date Marily Lock MD [address] [place] [phone] [email or web address] PCP - General Family Medicine 12/21/19 02/04/23 documented as of this encounter Additional Source Comments The information contained in this document represents components of the legal health record. It is not the complete legal health record.[facility]
--- OUTSIDE RECORDS SUMMARY | 2023-01-25 16:24 | XMS_ITS | Encounter Summary ---
Author Organization [facility] Address [address] [place] [address] Phone Care Team Providers Care Career Education Teacher Name Role Phone Marily Lock MD Primary Care Prov ider Encounter Details Date Type Department Care Team (Late st Contact Info) Description 01/25/2023 4:24 PM EDT Hospital Encounter [facility] [address] [place] [address] Margoth Pan CNP [address] [place] [address] Social History Tobacco Use Types Packs/Day Years [...] 08/31/2024 9:49 AM Jovanny Spaulding RN * [place] Suicide Severity Rating Scale (Screener/Recent Self-Report) Question [...] change. Severe medial tibiofemoral compartment narrowing and svewdgrv-vj-kcawib lateral tibiofemoral compartment narrowing. Mild patellofemoral compartment narrowing with lateral patellar subluxation. Bulky tricompartmental osteophytes. Chondrocalcinosis. Gdfvv-vo-yjbipiui effusion. 1.8 cm dystrophic calcification along the posterior knee soft tissues, chronic in appearance. Procedure Note Shy Nuno MD - 01/25/2023 XR KNEE 4 OR MORE VIEWS (LEFT) COMPARISON: KNEE, BILATERAL FINDINGS: Left Knee: Cortical step-off along the proximal fibula. Minimal lateralsubluxation of the tibia in relation to the femur in the setting ofdegenerative change. Severe medial tibiofemoral compartment narrowing ituubtjxxbi-le-rzjpzi lateral tibiofemoral compartment narrowing. Mildpatellofemoral compartment narrowing with lateral patellar subluxation.Bulky tricompartmental osteophytes. Chondrocalcinosis. Lvfnd-kt-wjovinsjchkhszkm. 1.8 cm dystrophic calcification along the posterior knee softtissues, chronic in appearance. IMPRESSION: 1. Cortical step-off along the proximal fibula, likely representing aminimally impacted proximal fibular fracture. Correlation with pointtenderness. 2. 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 3. Chondrocalcinosis. Margoth Pan MECHANIC WELDER TRUCK DRIVER IMG XR LOWER EXTREMITY Roz l Result documented in this encounter Visit Diagnoses Not on filedocumented in this encounter Additional Health Concerns Infection Onset Date Last Indicated Resolved Time CDiff-Risk 09/04/2024 09/04/2024 09/05/2024 2:50 PM EDT documented as of this encounter Care Teams Career Education Teacher Relationship Specialty Start Date End Date Marily Lock MD [address] [place] [phone] [email or web address] PCP - General Family Medicine 12/21/19 02/04/23 documented as of this encounter Additional Source Comments The information contained in this document represents components of the legal health record. It is not the complete legal health record.[facility]
--- OUTSIDE RECORDS SUMMARY | 2023-01-25 16:24 | XMS_ITS | Encounter Summary ---
Author Organization [facility] Address [address] [place] [address] Phone Care Team Providers Care Heel Turner Name Role Phone Marily Lock MD Primary Care Prov ider Encounter Details Date Type Department Care Team (Late st Contact Info) Description 01/25/2023 4:24 PM EDT Hospital Encounter [facility] [address] [place] [address] Margoth Pan CNP [address] [place] [phone] [email or web address] Social History Tobacco Use Types Packs/Day Years [...] 08/31/2024 9:49 AM Jovanny Spaulding RN * [place] Suicide Severity Rating Scale (Screener/Recent Self-Report) Question [...] change. Severe medial tibiofemoral compartment narrowing and wourepjv-vg-natlsk lateral tibiofemoral compartment narrowing. Mild patellofemoral compartment narrowing with lateral patellar subluxation. Bulky tricompartmental osteophytes. Chondrocalcinosis. Pwkhy-jd-wyaeuevy effusion. 1.8 cm dystrophic calcification along the posterior knee soft tissues, chronic in appearance. Procedure Note Shy Nuno MD - 01/25/2023 XR KNEE 4 OR MORE VIEWS (LEFT) COMPARISON: KNEE, BILATERAL FINDINGS: Left Knee: Cortical step-off along the proximal fibula. Minimal lateralsubluxation of the tibia in relation to the femur in the setting ofdegenerative change. Severe medial tibiofemoral compartment narrowing ztdicmnxrvk-nr-aaavek lateral tibiofemoral compartment narrowing. Mildpatellofemoral compartment narrowing with lateral patellar subluxation.Bulky tricompartmental osteophytes. Chondrocalcinosis. Ptltv-bz-nkglsmwfesnrbsdr. 1.8 cm dystrophic calcification along the posterior knee softtissues, chronic in appearance. IMPRESSION: 1. Cortical step-off along the proximal fibula, likely representing aminimally impacted proximal fibular fracture. Correlation with pointtenderness. 2. 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 3. Chondrocalcinosis. Margoth Pan HARDWARE INSTALLER IMG XR LOWER EXTREMITY Roz l Result documented in this encounter Visit Diagnoses Not on filedocumented in this encounter Additional Health Concerns Infection Onset Date Last Indicated Resolved Time CDiff-Risk 09/04/2024 09/04/2024 09/05/2024 2:50 PM EDT documented as of this encounter Care Teams Heel Turner Relationship Specialty Start Date End Date Marily Lock MD [address] [place] [phone] [email or web address] PCP - General Family Medicine 12/21/19 02/04/23 documented as of this encounter Additional Source Comments The information contained in this document represents components of the legal health record. It is not the complete legal health record.[facility]
--- OUTSIDE RECORDS SUMMARY | 2025-08-17 06:50 | XMS_ITS | Clinical Summary ---
Author Organization [facility] [address] [facility] Address [address] [place] [address] Phone Care Team Providers Care Straw Hat Machine Operator Name Role Phone Saqib Lock MD Primary Care Provi amelia Medical History Medical History Date Comments Current every day smoker DX:Curr ent every day smoker Essential (primary) hypertension DX:Essential (primary) hypertension COPD (chronic obstructive pu lmonary disease) (CMS/HCC V24, CMS/HCC V28) DX:COPD (chronic o bstructive pulmonary disease) ([facility]LY [facility]) Depression DX:Depression Thyroid disease DX:Thyroid disea se [...] Insurance MEDICAID - [place] MEDICARE Care Teams Straw Hat Machine Operator Relationship Specialty Start Date End Date Saqib Lock MD [address] [place] [address] PCP - General 10/30/22
--- OUTSIDE RECORDS SUMMARY | 2025-08-17 06:50 | XMS_ITS | Encounter Summary ---
Author Organization [facility] Address [address] [place] [address] [place] [address] Phone Care Team Providers Care Book Binder Name Role Phone Marily Lock MD Primary Care Prov ider Chhaya Sosa NP Primary Care Provider [phone] Encounter Details Date Type Department Care Team (Late st Contact Info) Description 04/26/2020 Procedure Pass [facility] Endoscopy Admitting Dept Virtual Department [address] [place] [address] Social History Tobacco Use Types Packs/Day Years [...] documented as of this encounter Care Teams Book Binder Relationship Specialty Start Date End Date Marily Lock MD [address] [place] [address] [email or web address] PCP - General Family Medicine 12/21/19 02/04/23 Chhaya Sosa NP [address] [place] [address] [email or web address] PCP - General Nurse Practitioner 02/05/23 documented as of this encounter Additional Source Comments The information contained in this document represents components of the legal health record. It is not the complete legal health record.[facility]
--- OUTSIDE RECORDS SUMMARY | 2025-08-17 06:50 | XMS_ITS | Encounter Summary ---
Author Organization [facility] Address [address] [facility] [address] [place] [address] Phone Care Team Providers Care Gas Blender Name Role Phone Chhaya Sosa NP Primary Care Provider [phone] Encounter Details Date Type Department Care Team (Late st Contact Info) Description 03/15/2023 Procedure Pass [facility], [address] [address] Social History Tobacco Use Types Packs/Day Years [...] as of this encounter Care Teams Gas Blender Relationship Specialty Start Date End Date Chhaya Sosa NP [address] [place] [address] [email or web address] PCP - General Nurse Practitioner 02/05/23 documented as of this encounter Additional Source Comments The information contained in this document represents components of the legal health record. It is not the complete legal health record.[facility]
--- OUTSIDE RECORDS SUMMARY | 2025-08-17 06:50 | XMS_ITS | Encounter Summary ---
Author Organization [facility] Address [address] [place] [address] [place] [address] Phone Care Team Providers Care Welder Gas Name Role Phone Marily Lock MD Primary Care Prov ider Chhaya Sosa NP Primary Care Provider [phone] Encounter Details Date Type Department Care Team (Late st Contact Info) Description 04/25/2020 Procedure Pass [facility] Endoscopy Admitting Dept Virtual Department [address] [place] [address] Social History Tobacco Use Types Packs/Day Years [...] documented as of this encounter Care Teams Welder Gas Relationship Specialty Start Date End Date Marily Lock MD [address] [place] [address] [email or web address] PCP - General Family Medicine 12/21/19 02/04/23 Chhaya Sosa NP [address] [place] [address] [email or web address] PCP - General Nurse Practitioner 02/05/23 documented as of this encounter Additional Source Comments The information contained in this document represents components of the legal health record. It is not the complete legal health record.[facility]
--- OUTSIDE RECORDS SUMMARY | 2025-08-17 06:50 | XMS_ITS | Encounter Summary ---
Author Organization [facility] Address [address] [facility] [address] [place] [address] Phone Care Team Providers Care Enterprise Sales Person Name Role Phone Marily Lock MD Primary Care Prov ider Chhaya Sosa NP Primary Care Provider [phone] Encounter Details Date Type Department Care Team (Late st Contact Info) Description 12/01/2020 Ancillary Orders [facility] Orthopedics & Sports Medicine [address] [place] [address] [phone] Lauren Lowe PA-C [address] [place] [address] Orthopedics & Sports Medicine, [facility]. [place], [place] [id number] [email or web address] Social History [...] documented as of this encounter Care Teams Enterprise Sales Person Relationship Specialty Start Date End Date Marily Lock MD [address] [place] [address] [email or web address] PCP - General Family Medicine 12/21/19 02/04/23 Chhaya Sosa NP [address] [place] [address] [email or web address] PCP - General Nurse Practitioner 02/05/23 documented as of this encounter Additional Source Comments The information contained in this document represents components of the legal health record. It is not the complete legal health record.[facility]
--- OUTSIDE RECORDS SUMMARY | 2025-08-17 06:50 | XMS_ITS | Encounter Summary ---
Author Organization [facility] Address [address] [facility] [address] [place] [address] Phone Care Team Providers Care Mandrel Maker Name Role Phone Marily Lock MD Primary Care Prov ider Chhaya Sosa NP Primary Care Provider [phone] Encounter Details Date Type Department Care Team (Late st Contact Info) Description 12/01/2020 Ancillary Orders [address] [id number] Lauren Lowe PA-C [address] [place] [address] Orthopedics & Sports Medicine, [facility] [place], [place] [phone] [email or web address] Right wrist pain Social History Tobacco Use [...] documented as of this encounter Care Teams Mandrel Maker Relationship Specialty Start Date End Date Marily Lock MD [address] [place] [address] [email or web address] PCP - General Family Medicine 12/21/19 02/04/23 Chhaya Sosa NP [address] [place] [address] [email or web address] PCP - General Nurse Practitioner 02/05/23 documented as of this encounter Additional Source Comments The information contained in this document represents components of the legal health record. It is not the complete legal health record.[facility]
--- OUTSIDE RECORDS SUMMARY | 2025-08-17 06:50 | XMS_ITS | Encounter Summary ---
Author Organization [facility] Address [address] [facility] [address] [place] [address] Phone Care Team Providers Care Cage Loader Name Role Phone Chhaya Sosa NP Primary Care Provider Encounter Details Date Type Department Care Team (Late st Contact Info) Description 03/15/2023 Procedure Pass [facility], [address] [address] Social History Tobacco Use Types Packs/Day Years [...] documented as of this encounter Care Teams Cage Loader Relationship Specialty Start Date End Date Chhaya Sosa NP [address] [place] [address] [email or web address] PCP - General Nurse Practitioner 02/05/23 documented as of this encounter Additional Source Comments The information contained in this document represents components of the legal health record. It is not the complete legal health record.[facility]
--- OUTSIDE RECORDS SUMMARY | 2025-08-17 06:51 | XMS_ITS | Encounter Summary ---
Author Organization [facility] Address [address] [facility] [address] [place] [address] Phone Care Team Providers Care Engineer Operations And Maintenance Name Role Phone Chhaya Sosa NP Primary Care Provider [phone] Encounter Details Date Type Department Care Team (Latest Contact Info) Description 10/15/2024 Ancillary Orders [facility] Orthopedics & Sports Medicine [address] [place] [address] [phone] Mana Flores PA-C [address] [place] [address] Orthopedics & Sports Medicine, [facility]. [place], [place] [phone] [email or web address] Fracture, hip (Primary Dx) Social [...] femur documented in this encounter Care Teams Engineer Operations And Maintenance Relationship Specialty Start Date End Date Chhaya Sosa NP [address] [place] [address] [email or web address] PCP - General Nurse Practitioner 02/05/23 documented as of this encounter Additional Source Comments The information contained in this document represents components of the legal health record. It is not the complete legal health record.[facility]
--- OUTSIDE RECORDS SUMMARY | 2025-08-17 06:51 | XMS_ITS | Clinical Summary ---
Author Organization [facility] Address [address] [address] Phone Care Team Providers Care Manager Cancer Name Role Phone Chhaya Sosa NP Primary Care Provider [phone] Allergies No known active allergies Medications sertraline [...] PCP refer to endo at their office, [facility]. Hip fracture 07/14/2024 Assessment & Plan (09/04/2024 [...] (07/16/2024 10:24 AM EDT): Continue diltiazem. Called [facility]. Pt is prescribed irbesrtan/HCTZ 150/12.5, last [...] this topic Medical Devices Implanted Type Area Kidney Puller Device Identifier Shelf Expiration Date Model / Serial / Lot 12mm/130 Deg Ti Michael Tfna 235mm/Left Implanted:Qty: 1 on 07/15/2024 by Dheeraj Corley MD at [facility] Nail Left: Femur [employer] 10/10/2033 04.037.245 S / / [id number] Screw Bone 10.1p750kj Fenestrated Aqanife Tfn Advanced - [id number] Implanted:Qty: 1 on 07/15/2024 by Dheeraj Corley MD at [facility] Left: Femur J [employer] 04/10/2034 04.038.205 S / / [id number] Screw Bone 5x38mm Xl25 Locking Medullary Nail Compatible - [id number] Implanted:Qty: 1 on 07/15/2024 by Dheeraj Corley MD at [facility] Left: Femur [employer] 01/08/2034 04.045.038 S / / [id number] Nail Bone [id number] 125deg Ti Cannulated Tfn Advanced Right - [id number] Implanted:Qty: 1 on 09/02/2024 by Dheeraj Corley MD at [facility] Right: Leg J [employer] 06/10/2033 04.037.132 S / / [id number] Bone Screw 95mm Fenestrated Aqanife Tfn Advanced - [id number] Implanted:Qty: 1 on 09/02/2024 by Dheeraj Corley MD at [facility] Right: Leg JNJ [employer] 04/10/2034 04.038.195 S / / [id number] Screw Bone 5x48mm Locking Xl25 Recess Medullary Nail Compatible - [id number] Implanted:Qty: 1 on 09/02/2024 by Dheeraj Corley MD at [facility] Right: Leg [employer] 12/11/2032 04.045.048 S / / [id number] Screw Bone 5x50mm Xl25 Locking Im Nail Compatible - [id number] Implanted:Qty: 1 on 09/02/2024 by Dheeraj Corley MD at [facility] Right: Leg [employer] 06/10/2033 04.045.050 / / [id number] Procedures Procedure Name Priority Date/Time Associated Diagnosis [...] EDT) SODIUM 139 133 - 146 mmol/L [facility] CHLORIDE 100 96 - 108 mmol/L [facility] POTASSIUM 3.7 3.3 - 5.1 mmol/L [facility] CO2 34 21 - 35 mmol/L [facility] BUN 22(H) 6 - 19 mg/dL [facility] CREATININE 0.60 0.5 - 1.5 mg/dL [facility] GLUCOSE 97 70 - 99 mg/dL [facility] CALCIUM 10.4(H) 8.4 - 10.3 mg/dL [facility] EGFR 95 >59 mL/min/1.7 3m2 [facility] Comment:Estimated glomerular filtration rate calculated using the CKD-EPI refit equation. ANION GAP 9(L) 10 - 20 mmol/L [facility] Blood 09/05/2024 8:15 AM EDT 09/05/2024 8:21 AM EDT Nina Montes DO LAB BLOOD ORDERABLES Final Result [facility] [address] [place] [address] * BI MAMMOGRAM DIAGNOSTIC WITH TOMOSYNTHESIS WITH [...] 69 Admit Type: Outpatient Gender: Female Room: [place] [address] Referring MD: Marily Guevara MD Exam Type: [...] monitored continuously. The Olympus adult variable colonoscope [id number] #7was introduced through the anus and advanced [...] 12:35 PM Procedure Code(s): --- Professional --- 56370, Colonoscopy, flexible; with removal of tumor(s), polyp(s), or other lesion(s) by snare technique --- Technical --- 84776, Colonoscopy, flexible; with removal of tumor(s), polyp(s), or other lesion(s) by snare technique CPT copyright 2018 [employer]. All rights reserved. The codes documented in this report are preliminary and upon booth usher reviewmay be revised to meet current compliance requirements. Procedure Date: 04/26/2020 12:35:59 PM [address] [place] [address] Marily Guevara MD GI PROCEDURE ORDER ANDREW Final Result * Outside LDL (05/22/2011) LDL - External 114 50 - 250 mg/ml Historical Provider LAB BLOOD ORDERABLES Roz l Result from Last 3 Months or Most Recently Relevant to Health Maintenance Insurance MEDICARE PART A & [place] [address] [place] [address] MEDICARE PART A & [facility] [address] [place] [address] MEDICARE PART A & B Member Subscriber Plan / Payer ( fective 2003-Present) Name:Anabela Gillette Member ID:[id number] Relation to Subscriber:Self Name:Anabela Gillette Subscriber ID:[id number] Payer ID:[id number] Group ID:Not on file Type:Medicare Address: [employer] [address] [place] MED[place] PART A & B [facility] & [place] B HEALTH MEDICARE PART A & B [facility] Advance Directives For more information, please contact: [phone] (9AM - 5PM [facility], Saturday-Saturday) Documents on File Type Date Recorded Patient Filling Station Equipment Mechanic Expl anation Healthcare Proxy 01/26/2023 signed 01/26 [...] Agents on File Name Relationship Healthcare Agent [facility] Communication Jocelin Castellon Daughter .Primary Health Care Agent (Proxy form on file) Care Teams Manager Cancer Relationship Specialty Start Date End Date Chhaya Sosa NP [address] [place] [address] [email or web address] PCP - General Nurse Practitioner 02/05/23 Additional Source Comments The information contained in this document represents components of the legal health record. It is not the complete legal health record.[facility]
--- OUTSIDE RECORDS SUMMARY | 2025-08-17 06:51 | XMS_ITS | Encounter Summary ---
Author Organization [facility] Address [address] [facility] [address] [place] [address] Phone Care Team Providers Care Housekeeping Associate Name Role Phone Chhaya Sosa NP Primary Care Provider [phone] Encounter Details Date Type Department Care Team (Late st Contact Info) Description 05/18/2024 Procedure Pass [facility] Endoscopy Admitting Dept Virtual Department [address] [place] [address] Social History Tobacco Use Types Packs/Day Years [...] documented as of this encounter Care Teams Housekeeping Associate Relationship Specialty Start Date End Date Chhaya Sosa NP [address] [place] [address] [email or web address] PCP - General Nurse Practitioner 02/05/23 documented as of this encounter Additional Source Comments The information contained in this document represents components of the legal health record. It is not the complete legal health record.[facility]
--- OUTSIDE RECORDS SUMMARY | 2025-08-17 06:51 | XMS_ITS | Encounter Summary ---
Author Organization [facility] Address [address] [facility] [address] [place] [address] Phone Care Team Providers Care Packing Machine Can Feeder Name Role Phone Chhaya Sosa NP Primary Care Provider [phone] Encounter Details Date Type Department Care Team (Late st Contact Info) Description 09/02/2024 Procedure Pass [place] Admitting Dept - Virtual Department [address] [place] [address] Social History Tobacco Use Types Packs/Day Years [...] documented as of this encounter Care Teams Packing Machine Can Feeder Relationship Specialty Start Date End Date Chhaya Sosa NP [address] [place] [phone] [email or web address] PCP - General Nurse Practitioner 02/05/23 documented as of this encounter Additional Source Comments The information contained in this document represents components of the legal health record. It is not the complete legal health record.[facility]
--- OUTSIDE RECORDS SUMMARY | 2025-08-17 06:51 | XMS_ITS | Encounter Summary ---
Author Organization [facility] Address [address] [facility] [address] [place] [address] Phone Care Team Providers Care Petal Shaper Hand Name Role Phone Chhaya Sosa NP Primary Care Provider [phone] Encounter Details Date Type Department Care Team (Late st Contact Info) Description 08/10/2024 Procedure Pass [facility] Endoscopy Admitting Dept Virtual Department [address] [place] [address] Social History Tobacco Use Types Packs/Day Years [...] documented as of this encounter Care Teams Petal Shaper Hand Relationship Specialty Start Date End Date Chhaya Sosa NP [address] [place] [address] [email or web address] PCP - General Nurse Practitioner 02/05/23 documented as of this encounter Additional Source Comments The information contained in this document represents components of the legal health record. It is not the complete legal health record.[facility]
--- OUTSIDE RECORDS SUMMARY | 2025-08-17 06:51 | XMS_ITS | Encounter Summary ---
Author Organization [facility] Address [address] [facility] [address] [place] [address] Phone Care Team Providers Care Fusing Furnace Loader Name Role Phone Chhaya Sosa NP Primary Care Provider [phone] Encounter Details Date Type Department Care Team (Late st Contact Info) Description 07/15/2024 Procedure Pass [place] Admitting Dept - Virtual Department [address] [place] [address] Social History Tobacco Use Types Packs/Day Years [...] documented as of this encounter Care Teams Fusing Furnace Loader Relationship Specialty Start Date End Date Chhaya Sosa NP [address] [place] [address] [email or web address] PCP - General Nurse Practitioner 02/05/23 documented as of this encounter Additional Source Comments The information contained in this document represents components of the legal health record. It is not the complete legal health record.[facility]
--- OUTSIDE RECORDS SUMMARY | 2025-08-17 06:51 | XMS_ITS | Encounter Summary ---
Author Organization [facility] Address [address] [place] [address] Phone Care Team Providers Care Bottler Name Role Phone Chhaya Sosa NP Primary Care Provider [phone] Reason for Referral * Physical Therapy (Routine) - Closed Specialty Diagnoses / Procedures Referred By Antelmo lopez Referred To Contact Physical Therapy Diagnoses Encounter for rehabilitation Chhaya Sosa NP [address] [place] [address] Phone: tel: fax: [email or web address] [facility] [address] [place] [address] Phone: tel: Referral ID Status Reason Start Date Expiration Date Visits Re quested Visits Authorized [id number] Closed 04/23/2024 04/23/2025 1 1 Encounter Details Date Type Department Care Team (Late st Contact Info) Description 04/23/2024 Transcribe Orders [facility] [address] [place] [address] Chhaya Sosa NP [address] [place] [address] [email or web address] Encounter for rehabilitation (Primary Dx) Social History [...] Diagnoses Orde r Schedule Ambulatory referral to [facility] Physical Therapy Outpatient Referral Routine Encounter for rehabilitation Ordered: 04/23/2024 documented as of this encounter Visit Diagnoses Diagnosis Encounter for rehabilitation- Primary documented in this encounter Additional Health Concerns Infection Onset Date Last Indicated Resolved Time CDiff-Risk 09/04/2024 09/04/2024 09/05/2024 2:50 PM EDT documented as of this encounter Care Teams Bottler Relationship Specialty Start Date End Date Chhaya Sosa NP [address] [place] [address] [email or web address] PCP - General Nurse Practitioner 02/05/23 documented as of this encounter Additional Source Comments The information contained in this document represents components of the legal health record. It is not the complete legal health record.[facility]
--- OUTSIDE RECORDS SUMMARY | 2025-08-23 06:58 | XMS_ITS | Encounter Summary ---
Author Organization [facility] Address [address] [facility] [address] [place] [address] Phone Care Team Providers Care Geoscience Laboratory Technician Name Role Phone Chhaya Sosa NP Primary Care Provider [phone] Encounter Details Date Type Department Care Team (Late st Contact Info) Description 03/15/2023 Procedure Pass [facility], [address] [address] Social History Tobacco Use Types Packs/Day Years [...] documented as of this encounter Care Teams Geoscience Laboratory Technician Relationship Specialty Start Date End Date Chhaya Sosa NP [address] [place] [address] [email or web address] PCP - General Nurse Practitioner 02/05/23 documented as of this encounter Additional Source Comments The information contained in this document represents components of the legal health record. It is not the complete legal health record.[facility]
--- OUTSIDE RECORDS SUMMARY | 2025-08-23 06:58 | XMS_ITS | Encounter Summary ---
Author Organization [facility] Address [address] [place] [address] [place] [address] Phone Care Team Providers Care Code Machine Operator Name Role Phone Marily Lock MD Primary Care Prov ider Chhaya Sosa NP Primary Care Provider [phone] Encounter Details Date Type Department Care Team (Late st Contact Info) Description 04/25/2020 Procedure Pass [facility] Endoscopy Admitting Dept Virtual Department [address] [place] [address] Social History Tobacco Use Types Packs/Day Years [...] documented as of this encounter Care Teams Code Machine Operator Relationship Specialty Start Date End Date Marily Lock MD [address] [place] [address] [email or web address] PCP - General Family Medicine 12/21/19 02/04/23 Chhaya Sosa NP [address] [place] [address] [email or web address] PCP - General Nurse Practitioner 02/05/23 documented as of this encounter Additional Source Comments The information contained in this document represents components of the legal health record. It is not the complete legal health record.[facility]
--- OUTSIDE RECORDS SUMMARY | 2025-08-23 06:58 | XMS_ITS | Encounter Summary ---
Author Organization [facility] Address [address] [facility] [address] [place] [address] Phone Care Team Providers Care Toolmaker Grade Three Name Role Phone Marily Lokc MD Primary Care Prov ider Chhaya Sosa NP Primary Care Provider [phone] Encounter Details Date Type Department Care Team (Late st Contact Info) Description 12/01/2020 Ancillary Orders [address] [phone] Lauren Lowe PA-C [address] [place] [address] Orthopedics & Sports Medicine, [facility]. [place], [place] [phone] [email or web address] Right wrist pain Social History Tobacco Use [...] documented as of this encounter Care Teams Toolmaker Grade Three Relationship Specialty Start Date End Date Marily Lock MD [address] [place] [address] [email or web address] PCP - General Family Medicine 12/21/19 02/04/23 Chhaya Sosa NP [address] [place] [address] [email or web address] PCP - General Nurse Practitioner 02/05/23 documented as of this encounter Additional Source Comments The information contained in this document represents components of the legal health record. It is not the complete legal health record.[facility]
--- OUTSIDE RECORDS SUMMARY | 2025-08-23 06:58 | XMS_ITS | Encounter Summary ---
Author Organization [facility] Address [address] [facility] [address] [place] [address] Phone Care Team Providers Care Civil Preparedness Coordinator Name Role Phone Chhaya Sosa NP Primary Care Provider [phone] Encounter Details Date Type Department Care Team (Late st Contact Info) Description 03/15/2023 Procedure Pass [facility], [address] [address] Social History Tobacco Use Types Packs/Day Years [...] as of this encounter Care Teams Civil Preparedness Coordinator Relationship Specialty Start Date End Date Chhaya Sosa NP [address] [place] [address] [email or web address] PCP - General Nurse Practitioner 02/05/23 documented as of this encounter Additional Source Comments The information contained in this document represents components of the legal health record. It is not the complete legal health record.[facility]
--- OUTSIDE RECORDS SUMMARY | 2025-08-23 06:58 | XMS_ITS | Encounter Summary ---
Author Organization [facility] Address [address] [facility] [address] [place] [address] Phone Care Team Providers Care Quarryman Name Role Phone Chhaya Sosa NP Primary Care Provider Encounter Details Date Type Department Care Team (Latest Contact Info) Description 10/15/2024 Ancillary Orders [facility] Orthopedics & Sports Medicine [address] [place] [address] [phone] Mana Flores PA-C [address] [place] [address] Orthopedics & Sports Medicine, [facility] [place], [place] [phone] [email or web address] Fracture, hip (Primary Dx) Social [...] femur documented in this encounter Care Teams Quarryman Relationship Specialty Start Date End Date Chhaya Sosa NP [address] [place] [address] [email or web address] PCP - General Nurse Practitioner 02/05/23 documented as of this encounter Additional Source Comments The information contained in this document represents components of the legal health record. It is not the complete legal health record.[facility]
--- OUTSIDE RECORDS SUMMARY | 2025-08-23 06:58 | XMS_ITS | Encounter Summary ---
Author Organization [facility] Address [address] [facility] [address] [place] [address] Phone Care Team Providers Care Provider Network Manager Name Role Phone Marily Lock MD Primary Care Prov ider Chhaay Sosa NP Primary Care Provider [phone] Encounter Details Date Type Department Care Team (Late st Contact Info) Description 12/01/2020 Ancillary Orders [facility] Orthopedics & Sports Medicine [address] [place] [address] [phone] Lauren Lowe PA-C [address] [place] [address] Orthopedics & Sports Medicine, [facility] [place], [place] [phone] [email or web address] Social History Tobacco Use [...] documented as of this encounter Care Teams Provider Network Manager Relationship Specialty Start Date End Date Marily Lock MD [address] [place] [address] [email or web address] PCP - General Family Medicine 12/21/19 02/04/23 Chhaya Sosa NP [address] [place] [address] [email or web address] PCP - General Nurse Practitioner 02/05/23 documented as of this encounter Additional Source Comments The information contained in this document represents components of the legal health record. It is not the complete legal health record.[facility]
--- OUTSIDE RECORDS SUMMARY | 2025-08-23 06:58 | XMS_ITS | Clinical Summary ---
Author Organization [facility] Address [address] [address] Phone Care Team Providers Care Impregnator Operator Name Role Phone Chhaya Sosa NP Primary Care Provider [phone] Allergies No known active allergies Medications sertraline [...] PCP refer to endo at their office, [facility]. Hip fracture 07/14/2024 Assessment & Plan (09/04/2024 [...] (07/16/2024 10:24 AM EDT): Continue diltiazem. Called [facility]. Pt is prescribed irbesrtan/HCTZ 150/12.5, last picked [...] COLONOSCOPY 1995 RSV VACCINE (1 - Risk 50-74 years 1-dose series) 2000 OSTEOPOROSIS SCREENING INITIAL (ONE-TIME) 2015 LIPID PANEL [...] this topic Medical Devices Implanted Type Area Medical Unit Secretary Device Identifier Shelf Expiration Date Model / Serial / Lot 12mm/130 Deg Ti Michael Tfna 235mm/Left Implanted:Qty: 1 on 07/15/2024 by Dheeraj Corley MD at [facility] Nail Left: Femur [employer] 10/10/2033 04.037.245 S / / [id number] Screw Bone 10.1s961xi Fenestrated Aqanife Tfn Advanced - [id number] Implanted:Qty: 1 on 07/15/2024 by Dheeraj Corley MD at [facility] Left: Femur J [employer] 04/10/2034 04.038.205 S / / [id number] Screw Bone 5x38mm Xl25 Locking Medullary Nail Compatible - [id number] Implanted:Qty: 1 on 07/15/2024 by Dheeraj Corley MD at [facility] Left: Femur [employer] 01/08/2034 04.045.038 S / / [id number] Nail Bone [id number] 125deg Ti Cannulated Tfn Advanced Right - [id number] Implanted:Qty: 1 on 09/02/2024 by Dheeraj Corley MD at [facility] Right: Leg J [employer] 06/10/2033 04.037.132 S / / [id number] Bone Screw 95mm Fenestrated Aqanife Tfn Advanced - [id number] Implanted:Qty: 1 on 09/02/2024 by Dheeraj Corley MD at [facility] Right: Leg JNJ [employer] 04/10/2034 04.038.195 S / / [id number] Screw Bone 5x48mm Locking Xl25 Recess Medullary Nail Compatible - [id number] Implanted:Qty: 1 on 09/02/2024 by Dheeraj Corley MD at [facility] Right: Leg [employer] 12/11/2032 04.045.048 S / / [id number] Screw Bone 5x50mm Xl25 Locking Im Nail Compatible - [id number] Implanted:Qty: 1 on 09/02/2024 by Dheeraj Corley MD at [facility] Right: Leg [employer] 06/10/2033 04.045.050 / / [id number] Procedures Procedure Name Priority Date/Time Associated Diagnosis [...] EDT) SODIUM 139 133 - 146 mmol/L [facility] CHLORIDE 100 96 - 108 mmol/L [facility] POTASSIUM 3.7 3.3 - 5.1 mmol/L [facility] CO2 34 21 - 35 mmol/L [facility] BUN 22(H) 6 - 19 mg/dL [facility] CREATININE 0.60 0.5 - 1.5 mg/dL [facility] GLUCOSE 97 70 - 99 mg/dL [facility] CALCIUM 10.4(H) 8.4 - 10.3 mg/dL [facility] EGFR 95 >59 mL/min/1.7 3m2 [facility] Comment:Estimated glomerular filtration rate calculated using the CKD-EPI refit equation. ANION GAP 9(L) 10 - 20 mmol/L [facility] Blood 09/05/2024 8:15 AM EDT 09/05/2024 8:21 AM EDT Nina Montes DO LAB BLOOD ORDERABLES Final Result [facility] [address] [place] [address] * BI MAMMOGRAM DIAGNOSTIC WITH TOMOSYNTHESIS WITH [...] 69 Admit Type: Outpatient Gender: Female Room: [place] [address] Referring MD: Marily Guevara MD Exam Type: [...] monitored continuously. The Olympus adult variable colonoscope [id number] #7was introduced through the anus and advanced [...] 12:35 PM Procedure Code(s): --- Professional --- 82891, Colonoscopy, flexible; with removal of tumor(s), polyp(s), or other lesion(s) by snare technique --- Technical --- 71501, Colonoscopy, flexible; with removal of tumor(s), polyp(s), or other lesion(s) by snare technique CPT copyright 2018 [employer]. All rights reserved. The codes documented in this report are preliminary and upon brick and tile making machine operator reviewmay be revised to meet current compliance requirements. Procedure Date: 04/26/2020 12:35:59 PM [address] [place] [address] Marily Guevara MD GI PROCEDURE ORDER ANDREW Final Result * Outside LDL (05/22/2011) LDL - External 114 50 - 250 mg/ml Historical Provider LAB BLOOD ORDERABLES Roz l Result from Last 3 Months or Most Recently Relevant to Health Maintenance Insurance MEDICARE PART A & B [place] [address] [place] [address] [facility]IC[facility] [address] [place] [address] MEDICARE PART A & B Member Subscriber Plan / Payer ( fective 2003-Present) Name:Anabela Gillette Member ID:[id number] Relation to Subscriber:Self Name:Anabela Gillette Subscriber ID:[id number] Payer ID:[id number] Group ID:Not on file Type:Medicare Address: [employer] [address] [place] PART A & B [facility] & [place] B HEALTH MEDICARE PART A & B [facility] Advance Directives For more information, please contact: [phone] (9AM - 5PM [facility], Saturday-Saturday) Documents on File Type Date Recorded Patient Goring Cutter Expl anation Healthcare Proxy 01/26/2023 signed 01/26 [...] Agents on File Name Relationship Healthcare Agent [facility] Communication Jocelin Castellon Daughter .Primary Health Care Agent (Proxy form on file) Care Teams Impregnator Operator Relationship Specialty Start Date End Date Chhaya Sosa NP [address] [place] [address] [email or web address] PCP - General Nurse Practitioner 02/05/23 Additional Source Comments The information contained in this document represents components of the legal health record. It is not the complete legal health record.[facility]
--- OUTSIDE RECORDS SUMMARY | 2025-08-23 06:58 | XMS_ITS | Clinical Summary ---
Author Organization [facility] [address] [facility] Address [address] [place] [address] Phone Care Team Providers Care Associate Professor Of Radiology Name Role Phone Saqib Lock MD Primary Care Provi amelia Medical History Medical History Date Comments Current every day smoker DX:Curr ent every day smoker Essential (primary) hypertension DX:Essential (primary) hypertension COPD (chronic obstructive pu lmonary disease) (CMS/HCC V24, CMS/HCC V28) DX:COPD (chronic o bstructive pulmonary disease) ([facility]) Depression DX:Depression Thyroid disease DX:Thyroid disea [...] Insurance MEDICA[place] - [place] MEDICARE Care Teams Associate Professor Of Radiology Relationship Specialty Start Date End Date Saqib Lock MD [address] [place] [address] PCP - General 10/30/22
--- OUTSIDE RECORDS SUMMARY | 2025-08-23 06:58 | XMS_ITS | Encounter Summary ---
Author Organization [facility] Address [address] [facility] [address] [place] [address] Phone Care Team Providers Care Assembler Production Line Name Role Phone Chhaya Sosa NP Primary Care Provider [phone] Encounter Details Date Type Department Care Team (Late st Contact Info) Description 09/02/2024 Procedure Pass [place] Admitting Dept - Virtual Department [address] [place], [place] [phone] Social History Tobacco Use Types Packs/Day Years [...] documented as of this encounter Care Teams Assembler Production Line Relationship Specialty Start Date End Date Chhaya Sosa NP [address] [place] [address] [email or web address] PCP - General Nurse Practitioner 02/05/23 documented as of this encounter Additional Source Comments The information contained in this document represents components of the legal health record. It is not the complete legal health record.[facility]
--- OUTSIDE RECORDS SUMMARY | 2025-08-23 06:58 | XMS_ITS | Encounter Summary ---
Author Organization [facility] Address [address] [place] [address] [place] [address] Phone Care Team Providers Care Process Control Board Operator Name Role Phone Marily Lock MD Primary Care Prov ider Chhaya Sosa NP Primary Care Provider [phone] Encounter Details Date Type Department Care Team (Late st Contact Info) Description 04/26/2020 Procedure Pass [facility] Endoscopy Admitting Dept Virtual Department [address] [place] [address] Social History Tobacco Use Types Packs/Day Years [...] documented as of this encounter Care Teams Process Control Board Operator Relationship Specialty Start Date End Date Marily Lock MD [address] [place] [address] [email or web address] PCP - General Family Medicine 12/21/19 02/04/23 Chhaya Sosa NP [address] [place] [address] [email or web address] PCP - General Nurse Practitioner 02/05/23 documented as of this encounter Additional Source Comments The information contained in this document represents components of the legal health record. It is not the complete legal health record.[facility]
--- OUTSIDE RECORDS SUMMARY | 2025-08-23 06:59 | XMS_ITS | Encounter Summary ---
Author Organization [facility] Address [address] [facility] [address] [place] [address] Phone Care Team Providers Care Leak Patcher Name Role Phone Chhaya Sosa NP Primary Care Provider [phone] Encounter Details Date Type Department Care Team (Late st Contact Info) Description 08/10/2024 Procedure Pass [facility] Endoscopy Admitting Dept Virtual Department [address] [place] [address] Social History Tobacco Use Types Packs/Day Years [...] documented as of this encounter Care Teams Leak Patcher Relationship Specialty Start Date End Date Chhaya Sosa NP [address] [place] [address] [email or web address] PCP - General Nurse Practitioner 02/05/23 documented as of this encounter Additional Source Comments The information contained in this document represents components of the legal health record. It is not the complete legal health record.[facility]
--- OUTSIDE RECORDS SUMMARY | 2025-08-23 06:59 | XMS_ITS | Encounter Summary ---
Author Organization [facility] Address [address] [place] [address] Phone Care Team Providers Care Grader Operator Name Role Phone Chhaya Sosa NP Primary Care Provider [phone] Reason for Referral * Physical Therapy (Routine) - Closed Specialty Diagnoses / Procedures Referred By Antelmo lopez Referred To Contact Physical Therapy Diagnoses Encounter for rehabilitation Chhaya Sosa NP [address] [place] [address] Phone: tel: fax: [email or web address] [address] [place] [address] Phone: tel: Referral ID Status Reason Start Date Expiration Date Visits Re quested Visits Authorized [id number] Closed 04/23/2024 04/23/2025 1 1 Encounter Details Date Type Department Care Team (Late st Contact Info) Description 04/23/2024 Transcribe Orders [facility] [address] [place] [address] Chhaya Sosa NP [address] [place] [address] [email or web address] Encounter for rehabilitation (Primary Dx) Social History [...] Diagnoses Orde r Schedule Ambulatory referral to [facility] Physical Therapy Outpatient Referral Routine Encounter for rehabilitation Ordered: 04/23/2024 documented as of this encounter Visit Diagnoses Diagnosis Encounter for rehabilitation- Primary documented in this encounter Additional Health Concerns Infection Onset Date Last Indicated Resolved Time CDiff-Risk 09/04/2024 09/04/2024 09/05/2024 2:50 PM EDT documented as of this encounter Care Teams Grader Operator Relationship Specialty Start Date End Date Chhaya Sosa NP [address] [place] [address] [email or web address] PCP - General Nurse Practitioner 02/05/23 documented as of this encounter Additional Source Comments The information contained in this document represents components of the legal health record. It is not the complete legal health record.[facility]
--- OUTSIDE RECORDS SUMMARY | 2025-08-23 06:59 | XMS_ITS | Encounter Summary ---
Author Organization [facility] Address [address] [facility] [address] [place] [address] Phone Care Team Providers Care Core Placer Name Role Phone Chhaya Sosa NP Primary Care Provider [phone] Encounter Details Date Type Department Care Team (Late st Contact Info) Description 07/15/2024 Procedure Pass [place] Admitting Dept - Virtual Department [address] [place] [address] Social History Tobacco Use Types Packs/Day Years [...] documented as of this encounter Care Teams Core Placer Relationship Specialty Start Date End Date Chhaya Sosa NP [address] [place] [address] [email or web address] PCP - General Nurse Practitioner 02/05/23 documented as of this encounter Additional Source Comments The information contained in this document represents components of the legal health record. It is not the complete legal health record.[facility]
--- OUTSIDE RECORDS SUMMARY | 2025-08-23 06:59 | XMS_ITS | Encounter Summary ---
Author Organization [facility] Address [address] [facility] [address] [place] [address] Phone Care Team Providers Care Retail Merchandising Manager Name Role Phone Chhaya Sosa NP Primary Care Provider [phone] Encounter Details Date Type Department Care Team (Late st Contact Info) Description 05/18/2024 Procedure Pass [facility] Endoscopy Admitting Dept Virtual Department [address] [place] [address] Social History Tobacco Use Types Packs/Day Years [...] documented as of this encounter Care Teams Retail Merchandising Manager Relationship Specialty Start Date End Date Chhaya Sosa NP [address] [place] [address] [email or web address] PCP - General Nurse Practitioner 02/05/23 documented as of this encounter Additional Source Comments The information contained in this document represents components of the legal health record. It is not the complete legal health record.[facility]
[2025-08-23 07:10] LABS: MANUAL DIFF FLAG NO
[2025-08-23 07:25] LABS: Hematocrit 41.5 % (37.0-47.0); Hemoglobin 13.1 g/dl (12.0-16.0); Imm Gran Abs Auto 0.02 X10*3/uL (0.00-0.03); Imm Gran Pct Auto 0.3 % (0.0-0.4); Lymphocytes Absolute Auto 1.8 X10*3/uL (1.2-4.9); Mean Corpuscular HGB Conc 31.6 g/dl (31.0-35.0); Mean Corpuscular Hemoglobin 33.8 pg (27.0-33.0); Mean Corpuscular Volume 107.0 fL (80.0-98.0); NRBC Abs Auto 0.000 X10*3/uL (0.0-0.012); NRBC Pct Auto 0.0 /100WBC (0.0-0.2); Platelet Count 148 X10*3/uL (160-400); Red Blood Count 3.88 X10*6/uL (4.20-5.50); White Blood Count 5.8 X10*3/uL (4.8-10.8)
[2025-08-23 07:32] LABS: Anion Gap 11 (12-20); Blood Urea Nitrogen 23 mg/dL (9-16); Calcium 11.3 mg/dL (8.4-10.2); Carbon Dioxide 31 mmol/L (22-29); Chloride 108 mmol/L (96-108); Estimated Glomerular Filt Rate > 60; Potassium 3.8 mmol/L (3.3-5.1); Sodium 146 mmol/L (135-145)
== END 2025-08-23 06:53 | disposition home or self-care (01) ==
LOC: HO.MMNH3L 06:52
PROVIDERS: Visit Provider Family Medicine
DX: I10 Essential (primary) hypertension (principal); J44.9 Chronic obstructive pulmonary disease, unspecified; E78.5 Hyperlipidemia, unspecified
CPT/HCPCS: 36415; 80048; 85025